=== PATIENT | male | born 1950 | race Caucasian/White ===

== ENCOUNTER 2017-04-02 23:22 | Inpatient (IN) | payer OTHER, MEDICARE ==
[~2017-04-02] VITALS: Ht 170.2 cm; Wt 95.0 kg
[~2017-04-02 23:22] MED LIST: CLIN1CAP6 PO; GLUCTAB PO; HYDR-3533 PO; LANTUSP SQ; MEDR4PAK3 PO
[2017-04-02] MEDS ORDERED: SODIUM CHLOR 0.9% 1000 ML INJ 1,000 ML IV ONE (23:24)
[2017-04-02 23:25] VITALS: BP 109/69; PULSE 97; RESP 16; TEMP 98.6; O2SAT 96
[2017-04-02 23:28] VITALS: O2SAT 93
[2017-04-02] MEDS ORDERED: SODIUM CHLORIDE 0.9% FLUSH 10 ML FLUSH IVF PRN (23:30)
[2017-04-02] MEDS ORDERED: TETANUS/DIPHTHERIA TOXOID ADULT 0.5 ML VIAL IM ONE (23:30)
--- NOTE | 2017-04-02 23:35 | PD ---
HPI Chief Complaint: Fall Time Seen by Provider: 23:28 Travel History International Travel<30 days: No Contact w/Intl Traveler<30days: No Traveled to known affect area: No History of Present Illness HPI Patient is a 66-year-old female who was brought to emergency room by EMS after he tripped and fell. As per EMS, patient was at a local store and was walking up the ramp, patient tripped and lost his balance and fell backwards hitting his head on the concrete floor. Reports that patient had positive loss of consciousness on scene. Reports that patient appears intoxicated. Patient with no complaints at this time, patient denies any alcohol ingestion, denies any drug ingestion. Patient reports that he currently is not on any anticoagulants. 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) Immune Disorder: No Implanted Vascular Access Dvce: No Musculoskeletal: Yes Neurologic: Yes Psychiatric: No Reproductive: No Respiratory: Yes (PLURISY) Immunizations Current: Yes Migraines: No Myocardial Infarction: Yes (PT DOES NOT KNOW IF HE HAD A CATH WHEN HE HAD THE PR) Pneumonia: Yes (MULTIPLE TIMES) Radiation Therapy: No Seizures: No Sleep Apnea: No Thyroid Disease: No Past Surgical History Abdominal Surgery: No AICD: No Arteriovenous Shunt: No Cardiac Surgery: No Ear Surgery: No Endocrine Surgery: No Eye Surgery: No Genitourinary Surgery: Yes (VASECTOMY/ CIRCUMCISION ) Insulin Pump: No Joint Replacement: No Oral Surgery: Yes (TONSILLECTOMY) Pacemaker: No Thoracic Surgery: No Tonsillectomy: Yes Other Surgery: Yes (VASECTOMY AND CIRCUMSISION) Social History Alcohol Use: Yes (occasionally) Tobacco Use: Yes Substance Use: No Allergies-Medications (Allergen,Severity, Reaction): Coded Allergies: Sulfa (Verified Allergy, Severe, UNKNOWN - CHILD, 04/02/17) Reported Meds & Prescriptions Reported Meds & Active Scripts Active Reported Glucophage XR (Metformin HCl) 500 Mg Genet 500 Mg PO BID With evening meal Review of Systems ROS Limitations: Intoxication General / Constitutional: No: Fever Eyes: No: Visual changes HENT: No: Headaches Cardiovascular: No: Chest Pain or Discomfort Respiratory: No: Shortness of Breath Gastrointestinal: No: Abdominal Pain Genitourinary: No: Dysuria Musculoskeletal: No: Pain Skin: No Rash Neurologic: No: Weakness Psychiatric: No: Depression Endocrine: No: Polydipsia Hematologic/Lymphatic: No: Easy Bruising Physical Exam Exam Limitations: Intoxication Narrative GENERAL: Patient appears intoxicated at this time SKIN: Focused skin assessment warm/dry. Patient with hematoma to left posterior scalp, patient with no obvious laceration, he does have skin abrasions on his scalp. HEAD: Atraumatic. Normocephalic. EYES: Pupils equal and round. No scleral icterus. No injection or drainage. ENT: No nasal bleeding or discharge. Mucous membranes pink and moist. NECK: Trachea midline. No JVD. Patient with C-spine precautions in place CARDIOVASCULAR: Regular rate and rhythm. No murmur appreciated. RESPIRATORY: No accessory muscle use. Clear to auscultation. Breath sounds equal bilaterally. GASTROINTESTINAL: Abdomen soft, non-tender, nondistended. Hepatic and splenic margins not palpable. MUSCULOSKELETAL: No obvious deformities. No clubbing. No cyanosis. No edema. Patient with no midline thoracic or lumbar tenderness, no step-offs NEUROLOGICAL: Awake and alert. PSYCHIATRIC: Patient appears intoxicated Data Data Last Documented VS Vital Signs Date Time Temp Pulse Resp B/P Pulse Ox O2 Delivery O2 Flow Rate FiO2 04/02/17 23:28 93 2 04/02/17 23:25 98.6 97 16 109/69 Orders Complete Blood Count With Diff (04/02/17 23:24) Comprehensive Metabolic Panel (04/02/17 23:24) Prothrombin Time / Inr (Pt) (04/02/17 23:24) Act Partial Throm Time (Ptt) (04/02/17 23:24) Ct Brain W/O Iv Contrast(Rout) (04/02/17 23:24) Ecg Monitoring (04/02/17 23:24) Iv Access Insert/Monitor (04/02/17 23:24) Oximetry (04/02/17 23:24) Sodium Chloride 0.9% Flush (Ns Flush) (04/02/17 23:30) Sodium Chlor 0.9% 1000 Ml Inj (Ns 1000 M (04/02/17 23:24) Ct Cerv Spine W/O Contrast (04/02/17 ) Tetanus/Diphtheria Tox Adult (Tetanus/Di (04/02/17 23:30) Drug Screen, Random Urine (04/02/17 23:24) Alcohol (Ethanol) (04/02/17 23:24) Salicylates (Aspirin) (04/02/17 23:24) Tylenol (Acetaminophen) (04/02/17 23:24) Chest, Single Ap (04/02/17 23:24) ^ Wound Care (04/02/17 23:24) Electrocardiogram (04/03/17 ) Platelet Pheresis (04/03/17 01:01) Consult Neurosurgery (04/03/17 ) Admit Order (Ed Use Only) (04/03/17 01:04) Labs Laboratory Tests Test 04/02/17 04/03/17 23:30 00:50 White Blood Count 4.6 TH/MM3 Red Blood Count 4.74 MIL/MM3 Hemoglobin 14.6 GM/DL Hematocrit 43.9 % Mean Corpuscular Volume 92.6 FL Mean Corpuscular Hemoglobin 30.8 PG Mean Corpuscular Hemoglobin 33.2 % Concent Red Cell Distribution Width 15.4 % Platelet Count 39 TH/MM3 Mean Platelet Volume 9.0 FL Neutrophils (%) (Auto) 59.6 % Lymphocytes (%) (Auto) 27.1 % Monocytes (%) (Auto) 9.3 % Eosinophils (%) (Auto) 3.3 % Basophils (%) (Auto) 0.7 % Neutrophils # (Auto) 2.7 TH/MM3 Lymphocytes # (Auto) 1.2 TH/MM3 Monocytes # (Auto) 0.4 TH/MM3 Eosinophils # (Auto) 0.2 TH/MM3 Basophils # (Auto) 0.0 TH/MM3 CBC Comment AUTO DIFF Prothrombin Time 12.3 SEC Prothromb Time International 1.1 RATIO Ratio Activated Partial 26.9 SEC Thromboplast Time Sodium Level 136 MEQ/L Potassium Level 3.6 MEQ/L Chloride Level 102 MEQ/L Carbon Dioxide Level 26.3 MEQ/L Anion Gap 8 MEQ/L Blood Urea Nitrogen 16 MG/DL Creatinine 0.76 MG/DL Estimat Glomerular Filtration 102 ML/MIN Rate Random Glucose 128 MG/DL Calcium Level 8.4 MG/DL Total Bilirubin 0.4 MG/DL Aspartate Amino Transf 16 U/L (AST/SGOT) Alanine Aminotransferase 15 U/L (ALT/SGPT) Alkaline Phosphatase 59 U/L Total Protein 8.0 GM/DL Albumin 3.7 GM/DL Salicylates Level LESS THAN 1.7 MG/DL Acetaminophen Level LESS THAN 2.0 MCG/ML Ethyl Alcohol Level 207 MG/DL Urine Opiates Screen NEG Urine Barbiturates Screen NEG Urine Amphetamines Screen NEG Urine Benzodiazepines Screen NEG Urine Cocaine Screen NEG Urine Cannabinoids Screen NEG MDM Medical Decision Making Medical Screen Exam Complete: Yes Emergency Medical Condition: Yes Interpretation(s) EKG at 0034: NSR at 84bpm, qt/qtc: 382/423, no acute st or t wave changes Vital Signs Date Time Temp Pulse Resp B/P Pulse Ox O2 Delivery O2 Flow Rate FiO2 04/02/17 23:25 98.6 97 16 109/69 96 Differential Diagnosis Alcohol intoxication, drug abuse, intracranial hemorrhage, cervical spine fracture, pneumothorax, electrolyte abnormality Narrative Course Patient is a 66-year-old male who presents to emergency room with EMS for evaluation of fall. As per EMS, patient was walking up a ramp and tripped and fell and landed on the back of his head. There was positive loss of consciousness on scene. Patient appeared intoxicated on scene. Patient arrives boarded and collared to the emergency room. Patient was removed from backboard, patient with no midline tenderness or step-offs, no abrasions or bruising to his back. Lungs are clear to auscultation, patient with no chest pain or shortness of breath and has good range of motion to all extremities. Plan to obtain CT of his head and neck, will obtain x-ray of his chest. Lab work including alcohol and urine drug screen ordered. Will give IV fluids and monitor patient. Laboratory Tests Test 04/02/17 23:30 White Blood Count 4.6 TH/MM3 (4.0-11.0) Red Blood Count 4.74 MIL/MM3 (4.50-5.90) Hemoglobin 14.6 GM/DL (13.0-17.0) Hematocrit 43.9 % (39.0-51.0) Mean Corpuscular Volume 92.6 FL (80.0-100.0) Mean Corpuscular Hemoglobin 30.8 PG (27.0-34.0) Mean Corpuscular Hemoglobin 33.2 % Concent (32.0-36.0) Red Cell Distribution Width 15.4 % (11.6-17.2) Platelet Count 39 TH/MM3 (150-450) Mean Platelet Volume 9.0 FL (7.0-11.0) Neutrophils (%) (Auto) 59.6 % (16.0-70.0) Lymphocytes (%) (Auto) 27.1 % (9.0-44.0) Monocytes (%) (Auto) 9.3 % (0.0-8.0) Eosinophils (%) (Auto) 3.3 % (0.0-4.0) Basophils (%) (Auto) 0.7 % (0.0-2.0) Neutrophils # (Auto) 2.7 TH/MM3 (1.8-7.7) Lymphocytes # (Auto) 1.2 TH/MM3 (1.0-4.8) Monocytes # (Auto) 0.4 TH/MM3 (0-0.9) Eosinophils # (Auto) 0.2 TH/MM3 (0-0.4) Basophils # (Auto) 0.0 TH/MM3 (0-0.2) CBC Comment AUTO DIFF Prothrombin Time 12.3 SEC (9.8-11.6) Prothromb Time International 1.1 RATIO Ratio Activated Partial 26.9 SEC Thromboplast Time (24.3-30.1) Sodium Level 136 MEQ/L (136-145) Potassium Level 3.6 MEQ/L (3.5-5.1) Chloride Level 102 MEQ/L (98-107) Carbon Dioxide Level 26.3 MEQ/L (21.0-32.0) Anion Gap 8 MEQ/L (5-15) Blood Urea Nitrogen 16 MG/DL (7-18) Creatinine 0.76 MG/DL (0.60-1.30) Estimat Glomerular Filtration 102 ML/MIN Rate (>89) Random Glucose 128 MG/DL (74-106) Calcium Level 8.4 MG/DL (8.5-10.1) Total Bilirubin 0.4 MG/DL (0.2-1.0) Aspartate Amino Transf 16 U/L (15-37) (AST/SGOT) Alanine Aminotransferase 15 U/L (12-78) (ALT/SGPT) Alkaline Phosphatase 59 U/L (45-117) Total Protein 8.0 GM/DL (6.4-8.2) Albumin 3.7 GM/DL (3.4-5.0) Salicylates Level LESS THAN 1.7 MG/DL (2.8-20.0) Acetaminophen Level LESS THAN 2.0 MCG/ML (10.0-30.0) Ethyl Alcohol Level 207 MG/DL (0-5) Alcohol level is 207, ct of head with SAH b/l temportal and right mid parietal region. Plan to admit to ICU and call made to neurosurgery. Case reviewed with Dr. Sim who accepts pt to service Case reviewed with Dr. Duque who will see patient in consult Critical Care Narrative Aggregate critical care time was 30 minutes. Time to perform other separately billable procedures was not included in the critical care time. My time did not include minutes spent treating any other patients simultaneously or on activities that did not directly contribute to the patient's treatment. The services I provided to this patient were to treat and/or prevent clinically significant deterioration that could result in: , decompensation, deterioration I provided critical care services requiring my management, as noted below: Chart data review, documentation time, medication orders and management, vital sign assessments/reviewing monitor data, ordering and reviewing lab tests, ordering and interpreting/reviewing x-rays and diagnostic studies, care of the patient and discussion of the patient with the admitting physicians. Physician Communication Physician Communication case reviewed with Dr. Sim who accepts pt to service Diagnosis Primary Impression: Subarachnoid hemorrhage Additional Impression: Alcohol intoxication Qualified Code: F10.929 - Alcohol intoxication, with unspecified complication Admitting Information Admitting Physician Requests: Rimma Hill DO Apr 02, 2017 23:35
[2017-04-02] MEDS ORDERED: GLUCTAB PO (23:44)
[2017-04-02 23:56] LABS: AUTOMATED NEUTROPHIL # 2.7 TH/MM3 (1.8-7.7); BASOPHIL % 0.7 % (0.0-2.0); EOSINOPHIL # 0.2 TH/MM3 (0-0.4); EOSINOPHIL % 3.3 % (0.0-4.0); HEMATOCRIT 43.9 % (39.0-51.0); LYMPH % 27.1 % (9.0-44.0); LYMPHOCYTE # 1.2 TH/MM3 (1.0-4.8); MEAN CELL VOLUME 92.6 FL (80.0-100.0); MEAN CORPUSCULAR HEMOGLOBIN 30.8 PG (27.0-34.0); MEAN CORPUSCULAR HGB CONC 33.2 % (32.0-36.0); MONO % 9.3 % (0.0-8.0); NEUT % 59.6 % (16.0-70.0); PLATELET COUNT 39 TH/MM3 (150-450); RED BLOOD COUNT 4.74 MIL/MM3 (4.50-5.90); RED CELL DISTRIBUTION WIDTH 15.4 % (11.6-17.2); WHITE BLOOD COUNT 4.6 TH/MM3 (4.0-11.0)
[2017-04-02 23:58] LABS: HEMO FLAGS AUTO DIFF
[2017-04-03] VITALS (16 sets, daily range): BP systolic 95–169; BP diastolic 47–79; PULSE 68–90; RESP 16–30; TEMP 97.6–98.6; O2SAT 91–98
--- NOTE | 2017-04-03 00:01 | RADRPT ---
EXAM DATE/TIME: 04/02/2017 23:55 [facility] COMPARISON: CHEST SINGLE AP, December 23, 2014, 11:13. INDICATIONS : Syncopal episode today. Trauma to chest post fall. MEDICAL HISTORY : None. SURGICAL HISTORY : None. ENCOUNTER: Initial ACUITY: 1 day PAIN SCORE: Non-responsive. LOCATION: Bilateral chest FINDINGS: Single frontal view of the chest demonstrates mild diffuse interstitial markings at the periphery of the right lung. No focal areas of consolidation. The heart is normal in size. Both hemidiaphragms are well delineated. Healed fractures of the posterior left 4th and 5th ribs. CONCLUSION: No acute findings. No evidence of pneumothorax. Anuel Brennan MD on April 02, 2017 at 23:58 Board Certified Radiologist. This report was verified electronically.
[2017-04-03 00:08] LABS: APTT (PATIENT) 26.9 SEC (24.3-30.1); INTERNATIONAL NORMALIZED RATIO 1.1 RATIO; PROTHROMBIN TIME - PATIENT 12.3 SEC (9.8-11.6)
[2017-04-03 00:17] LABS: ANION GAP 8 MEQ/L (5-15); AST (GOT) 16 U/L (15-37); BICARBONATE 26.3 MEQ/L (21.0-32.0); BLOOD UREA NITROGEN 16 MG/DL (7-18); CHLORIDE 102 MEQ/L (98-107); GLOMERULAR FILTRATION RATE 102 ML/MIN (>89); POTASSIUM 3.6 MEQ/L (3.5-5.1); SODIUM (NA) 136 MEQ/L (136-145)
[2017-04-03 00:19] LABS: ALT (GPT) 15 U/L (12-78)
[2017-04-03 00:21] LABS: ALKALINE PHOSPHATASE 59 U/L (45-117); TOTAL BILIRUBIN ADULT 0.4 MG/DL (0.2-1.0)
[2017-04-03 00:23] LABS: ACETAMINOPHEN LESS THAN 2.0 MCG/ML (10.0-30.0)
--- NOTE | 2017-04-03 00:54 | RADRPT ---
EXAM DATE/TIME: 04/03/2017 00:15 [facility] COMPARISON: CT BRAIN W/O CONTRAST, June 26, 2011, 20:24. INDICATIONS : Fell backwards hitting head. RADIATION DOSE: 56.45 CTDIvol (mGy) MEDICAL HISTORY : Cardiovascular disease. Diabetes mellitus type 2. Hepatitis C. SURGICAL HISTORY : None. ENCOUNTER: Initial ACUITY: 1 day PAIN SCALE: 8/10 LOCATION: cranial TECHNIQUE: Multiple contiguous axial images were obtained of the head. Using automated exposure control and adj ustment of the mA and/or kV according to patient size, radiation dose was kept as low as reasonably a chievable to obtain optimal diagnostic quality images. DICOM format image data is available electro nically for review and comparison. FINDINGS: CEREBRUM: Abnormal. There is bilateral subarachnoid hemorrhage in sulci of the low convexity temporal lobes an d in right mid convexity parietal lobe no evidence of midline shift. No intraventricular blood. POSTERIOR FOSSA: The cerebellum and brainstem are intact. The 4th ventricle is midline. The cerebellopontine angle i s unremarkable. EXTRACRANIAL: The visualized portion of the orbits is intact. SKULL: Left posterior parietal mid convexity scalp hematoma measuring up to 9 mm in thickness. The calvaria is intact. No evidence of skull fracture. CONCLUSION: Evidence of closed head injury with subarachnoid hemorrhage is bilateral temporal and right mid parie john region. Left posterior parietal scalp hematoma without evidence of skull fracture. Anuel Brennan MD on April 03, 2017 at 0:48 Board Certified Radiologist. This report was verified electronically.
--- NOTE | 2017-04-03 00:58 | RADRPT ---
EXAM DATE/TIME: 04/03/2017 00:17 [facility] COMPARISON: CT CERVICAL SPINE W/O CONTRAST W 3D RECON, June 26, 2011, 20:24. CT BRAIN W/O CONTRAST, March, 0:15. INDICATIONS : Fell backwards hitting head. RADIATION DOSE: 37.45 CTDIvol (mGy) MEDICAL HISTORY : Cardiovascular disease. Diabetes mellitus type 2. Hepatitis C. SURGICAL HISTORY : None. ENCOUNTER: Initial ACUITY: 1 day PAIN SCALE: 4/10 LOCATION: neck TECHNIQUE: Volumetric scanning of the cervical spine was performed. Multiplanar reconstructions in the sagittal, coronal and oblique axial planes were performed. Using automated exposure control and adjustment o f the mA and/or kV according to patient size, radiation dose was kept as low as reasonably achievable to obtain optimal diagnostic quality images. DICOM format image data is available electronically f or review and comparison. FINDINGS: There is normal alignment of vertebral bodies of the cervical spine preservation of vertebral body he ight. Mild loss of the posterior disc space at C5-6 with mild osteophyte formation. The lateral mas ses are intact without evidence of locked or perched facets. The spinous processes are grossly intac t. Small areas of ossification in the soft tissue superficial to the C4 level. C2-C3: No fracture seen. The bony neural foramina are patent bilaterally. C3-C4: No fracture seen. The bony neural foramina are patent bilaterally. C4-C5: No fracture seen. The bony neural foramina are patent bilaterally. C5-C6: No fracture seen. The bony neural foramina are patent bilaterally. C6-C7: No fracture seen. The bony neural foramina are patent bilaterally. C7-T1: No fracture seen. The bony neural foramina are patent bilaterally. CONCLUSION: Discogenic degenerative changes at C5-6 without neural foraminal narrowing. No evidence of acute fra cture or spondylolisthesis. Anuel Brennan MD on April 03, 2017 at 0:53 Board Certified Radiologist. This report was verified electronically.
[2017-04-03 01:03] LABS: AMPHETAMINE, URINE NEG (NEG); BARBITURATES, URINE NEG (NEG); COCAINE, URINE NEG (NEG)
[2017-04-03] MEDS ORDERED: BISACODYL 10 MG SUPP RECTAL PRN (01:15)
[2017-04-03] MEDS ORDERED: CHLORHEXIDINE GLUCONATE 2 % 1 PACK (2 CLOTHS) TOP PRN (01:15)
[2017-04-03] MEDS ORDERED: ACETAMINOPHEN 325 MG TAB PO PRN (01:15)
[2017-04-03] MEDS ORDERED: LORazepam 2 MG/ML VIAL IV PRN (01:15)
[2017-04-03] MEDS ORDERED: RESP: ALBUTEROL 2.5 MG/IPRATROPIUM 0.5 MG NEB (PRN) INH (01:15)
[2017-04-03] MEDS ORDERED: MISCELLANEOUS NURSING INFORMATION XX SCH (01:15)
[2017-04-03] MEDS ORDERED: MAGNESIUM HYDROXIDE SUSP 30 ML CUP PO PRN (01:15)
[2017-04-03] MEDS ORDERED: ONDANSETRON HCL 4 MG/2 ML VIAL IV PRN (01:15)
[2017-04-03] MEDS ORDERED: SODIUM CHLORIDE 0.9% FLUSH 10 ML FLUSH IV FLUSH PRN (01:15)
[2017-04-03] MEDS ORDERED: LACTULOSE SYRUP 20 GM/30 ML CUP PO PRN (01:15)
[2017-04-03] MEDS ORDERED: SENNOSIDES 8.6 MG TAB PO PRN (01:15)
[2017-04-03 01:39] LABS: PLATELET ESTIMATE SMEAR LOW (NORMAL); PLATELET MORPHOLOGY NORMAL (NORMAL); SCAN/DIFF AUTO DIFF CONFIRMED
--- NOTE | 2017-04-03 02:11 | HHI.HP ---
[facility] Service Critical Care Medicine Primary Care Physician No Primary Care Physician Admission Diagnosis subarachnoid hemorrhage Diagnosis: Travel History International Travel<30 Days: No Contact w/Intl Traveler <30 Da: No Traveled to Known Affected Are: No History of Present Illness 66-year-old male who was brought by EMS after he tripped and fell. As per EMS, patient was at a local store and was walking up the ramp, when he tripped and lost his balance and fell backwards hitting his head on the concrete floor. Reports that patient had positive loss of consciousness on scene. Reports that patient appears intoxicated. Patient with no complaints at this time, patient denies any alcohol ingestion, denies any drug ingestion. Review of Systems Constitutional: DENIES: Diaphoretic episodes, Fatigue, Fever, Weight gain, Weight loss, Chills, Dizziness, Change in appetite, Night Sweats Endocrine: DENIES: Heat/cold intolerance, Polydipsia, Polyuria, Polyphagia Eyes: DENIES: Blurred vision, Diplopia, Eye inflammation, Eye pain, Vision loss , Photosensitivity, Double Vision Ears, nose, mouth, throat: DENIES: Tinnitus, Hearing loss, Vertigo, Nasal discharge, Oral lesions, Throat pain, Hoarseness, Ear Pain, Running Nose, Epistaxis, Sinus Pain, Toothache, Odynophagia Respiratory: DENIES: Apneas, Cough, Snoring, Wheezing, Hemoptysis, Sputum production, Shortness of breath Cardiovascular: DENIES: Chest pain, Palpitations, Syncope, Dyspnea on Exertion , PND, Lower Extremity Edema, Orthopnea, Claudication Gastrointestinal: DENIES: Abdominal pain, Black stools, Bloody stools, Constipation, Diarrhea, Nausea, Vomiting, Difficulty Swallowing, Anorexia Genitourinary: DENIES: Sexual dysfunction, Urinary frequency, Urinary incontinence, Urgency, Hematuria, Dysuria, Nocturia, Penile Discharge, Testicular Pain, Testicular Swelling Musculoskeletal: DENIES: Joint pain, Muscle aches, Stiffness, Joint Swelling, Back pain, Neck pain Integumentary: DENIES: Abnormal pigmentation, Nail changes, Pruritus, Rash Hematologic/lymphatic: DENIES: Bruising, Lymphadenopathy Immunologic/allergic: DENIES: Eczema, Urticaria Neurologic: DENIES: Abnormal gait, Headache, Localized weakness, Paresthesias, Seizures, Speech Problems, Tremor, Poor Balance Psychiatric: DENIES: Anxiety, Confusion, Mood changes, Depression, Hallucinations, Agitation, Suicidal Ideation, Homicidal Ideation, Delusions Past Family Social History Allergies: Coded Allergies: Sulfa (Verified Allergy, Severe, UNKNOWN - CHILD, 04/02/17) Past Medical History Diabetes mellitus Questionable alcohol abuse Past Surgical History None Reported Medications Reported Meds & Active Scripts Active Reported Glucophage XR (Metformin HCl) 500 Mg Genet 500 Mg PO BID With evening meal Active Ordered Medications Current Medications Medications (Trade) Dose Ordered Sig/Sameera Route PRN Reason Start Time Stop Time Status Last Admin Dose Admin Sodium Chloride (NS Flush) 2 ml UNSCH PRN IV FLUSH FLUSH AFTER USING IV ACCESS 04/03/17 01:15 Sodium Chloride (NS Flush) 2 ml BID .XX 04/03/17 09:00 Acetaminophen (Tylenol) 650 mg Q6H PRN PO PAIN 1-5 AND/OR FEVER >101F 04/03/17 01:15 Morphine Sulfate (Morphine Inj) 2 mg Q2H PRN IV PAIN SCALE 6 TO 10 04/03/17 01:15 Lorazepam (Ativan Inj) 2 mg Q4H PRN IV Agitation/Sedation 04/03/17 01:15 Ondansetron HCl (Zofran Inj) 4 mg Q6H PRN IV NAUSEA OR VOMITING 04/03/17 01:15 Miscellaneous Information 1 [id number] XX 04/03/17 01:15 Chlorhexidine Gluconate (Chlorhexidine 2% Cloth) 3 pack Taper DAILY@04 TOP 04/03/17 04:00 03/30/18 03:59 Chlorhexidine Gluconate (Chlorhexidine 2% Cloth) 3 pack UNSCH PRN TOP HYGIENIC CARE 04/03/17 01:15 Senna/Docusate Sodium (Tess-Colace) 1 tab BID PO 04/03/17 09:00 Magnesium Hydroxide (Milk Of Magnesia Liq) 30 ml Q12H PRN PO MILD - MODERATE CONSTIPATION 04/03/17 01:15 Sennosides (Senokot) 17.2 mg Q12H PRN PO MODERATE - SEVERE CONSTIPATION 04/03/17 01:15 Bisacodyl (Dulcolax Supp) 10 mg DAILY PRN RECTAL SEVERE CONSITIPATION 04/03/17 01:15 Lactulose 30 ml 30 ml DAILY PRN PO SEVERE CONSITIPATION 04/03/17 01:15 Multivitamins/ Thiamine HCl/ Folic Acid/ Dextrose/Sodium Chloride (Mvi-12 Inj/ Thiamine Inj/ Folvite Inj/ D5W-NS 500 ml Inj) 511.2 ml @ 125 mls/hr ONCE ONCE IV 04/03/17 03:15 04/03/17 07:20 Family History Noncontributory Social History Smokes 1 pack per day denies illicit drug or alcohol abuse Physical Exam Vital Signs Vital Signs Date Time Temp Pulse Resp B/P Pulse Ox O2 Delivery O2 Flow Rate FiO2 04/02/17 23:28 93 2 04/02/17 23:25 98.6 97 16 109/69 96 Physical Exam GENERAL: Well-nourished, well-developed patient. SKIN: Warm and dry. HEAD: Normocephalic. EYES: No scleral icterus. No injection or drainage. NECK: Supple, trachea midline. No JVD or lymphadenopathy. CARDIOVASCULAR: Regular rate and rhythm without murmurs, gallops, or rubs. RESPIRATORY: Breath sounds equal bilaterally. No accessory muscle use. GASTROINTESTINAL: Abdomen soft, non-tender, nondistended. MUSCULOSKELETAL: No cyanosis, or edema. BACK: Nontender without obvious deformity. No CVA tenderness. EXTREMITIES: No clubbing cyanosis or edema Laboratory Laboratory Tests Test 04/02/17 04/03/17 23:30 00:50 White Blood Count 4.6 Red Blood Count 4.74 Hemoglobin 14.6 Hematocrit 43.9 Mean Corpuscular Volume 92.6 Mean Corpuscular Hemoglobin 30.8 Mean Corpuscular Hemoglobin 33.2 Concent Red Cell Distribution Width 15.4 Platelet Count 39 Mean Platelet Volume 9.0 Neutrophils (%) (Auto) 59.6 Lymphocytes (%) (Auto) 27.1 Monocytes (%) (Auto) 9.3 Eosinophils (%) (Auto) 3.3 Basophils (%) (Auto) 0.7 Neutrophils # (Auto) 2.7 Lymphocytes # (Auto) 1.2 Monocytes # (Auto) 0.4 Eosinophils # (Auto) 0.2 Basophils # (Auto) 0.0 CBC Comment AUTO DIFF Differential Comment AUTO DIFF CONFIRMED Platelet Estimate LOW Platelet Morphology Comment NORMAL Prothrombin Time 12.3 Prothromb Time International 1.1 Ratio Activated Partial 26.9 Thromboplast Time Sodium Level 136 Potassium Level 3.6 Chloride Level 102 Carbon Dioxide Level 26.3 Anion Gap 8 Blood Urea Nitrogen 16 Creatinine 0.76 Estimat Glomerular Filtration 102 Rate Random Glucose 128 Calcium Level 8.4 Total Bilirubin 0.4 Aspartate Amino Transf 16 (AST/SGOT) Alanine Aminotransferase 15 (ALT/SGPT) Alkaline Phosphatase 59 Total Protein 8.0 Albumin 3.7 Salicylates Level LESS THAN 1.7 Acetaminophen Level LESS THAN 2.0 Ethyl Alcohol Level 207 Urine Opiates Screen NEG Urine Barbiturates Screen NEG Urine Amphetamines Screen NEG Urine Benzodiazepines Screen NEG Urine Cocaine Screen NEG Urine Cannabinoids Screen NEG Result Diagram: 04/02/17 2330 04/02/172329 Imaging Last [address] 04/02/172323 Signed Impressions: Service Date/Time: March 00:15 - CONCLUSION: Evidence of closed head injury with subarachnoid hemorrhage is bilateral temporal and right mid parietal region. Left posterior parietal scalp hematoma without evidence of skull fracture. Anuel Brennan MD Chest X-Ray 04/02/172323 Signed Impressions: Service Date/Time: Sunday, April 02, 2017 23:55 - CONCLUSION: No acute findings. No evidence of pneumothorax. Anuel Brennan MD Assessment and Plan Assessment and Plan Subarachnoid hemorrhage - Traumatic - Admit to ICU - Neuro checks per unit protocol - Repeat CT head in 24 hours Thrombocytopenia - Most likely due to chronic alcohol use - Transfuse platelets to keep platelet count close to 90 due to ICH Diabetes mellitus - Hold metformin while in the ICU - Insulin sliding scale Alcohol intoxication - Monitor for withdrawal - Thiamine folate multivitamin - IV hydration - Ativan when necessary DVT GI prophylaxis - Teds SCDs - No pharmacological DVT prophylaxis due to acute ICH - Pepcid Critical Care: The total critical care time was 35 minutes. Time to perform other separately billable procedures was not included in the critical care time. Keyon Sim MD Apr 03, 2017 02:11
[2017-04-03] MEDS ORDERED: MULTIVITAMIN INJ 10 ML, THIAMINE INJ 100 MG, FOLIC ACID INJ 1 MG in DEXT 5%-NACL 0.9% 5... IV ONE (03:15)
[2017-04-03] MEDS: CHLORHEXIDINE GLUCONATE 2 % 1 PACK (2 CLOTHS) TOP SCH (04:00)
--- NOTE | 2017-04-03 07:50 | EKG ---
Date Performed: 04/03/2017 Time Performed: 00:34:14 PTAGE: 66 years EKG: Sinus rhythm BORDERLINE LEFT AXIS DEVIATION BORDERLINE ECG PREVIOUS TRACING : 05/19/2010 12.17 DOCTOR: Edwin Euceda Interpretating Date/Time 04/03/2017 07:48:07
[2017-04-03] MEDS: DOCUSATE SODIUM 50 MG/SENNA 8.6 MG TAB PO SCH ×2 (11:58→22:45)
[2017-04-03] MEDS: SODIUM CHLORIDE 0.9% FLUSH 10 ML FLUSH SCH ×2 (11:58→22:45)
[2017-04-03] MEDS ORDERED: GLUCAGON 1 MG/ML VIAL OTHER PRN (12:30)
[2017-04-03] MEDS ORDERED: DEXTROSE 50% IN WATER 50 ML VIAL(D50) IV PRN (12:30)
[2017-04-03] MEDS: metFORMIN HCL 500 MG TAB PO SCH ×2 (13:11→17:18)
--- NOTE | 2017-04-03 13:55 | PD.CONS ---
HPI Service NSR Consult Requested By Dr Wright Reason for Consult TBI Primary Care Physician No Primary Care Physician History of Present Illness This is a 66-year-old male who was brought by EMS after he tripped and fell down. Apparently he was at a local store and was walking up the ramp, when he tripped and lost his balance and fell backwards hitting his head on the concrete floor. Reports that patient had positive loss of consciousness on scene. The noted. No tongue biting. No incontinence of stool or urine. His. He denies any sensory loss. Reports that patient appears intoxicated. He denies any alcohol ingestion, denies any drug ingestion. CT of the brain showed Evidence of closed head injury with subarachnoid hemorrhage is bilateral temporal and right mid parietal region. Neurosurgical consultation was requested Review of Systems Constitutional: DENIES: Diaphoretic episodes, Fatigue, Fever, Weight gain, Weight loss, Chills, Dizziness, Change in appetite, Night Sweats Endocrine: DENIES: Heat/cold intolerance, Polydipsia, Polyuria, Polyphagia Eyes: DENIES: Blurred vision, Diplopia, Eye inflammation, Eye pain, Vision loss , Photosensitivity, Double Vision Ears, nose, mouth, throat: DENIES: Tinnitus, Hearing loss, Vertigo, Nasal discharge, Oral lesions, Throat pain, Hoarseness, Ear Pain, Running Nose, Epistaxis, Sinus Pain, Toothache, Odynophagia Respiratory: DENIES: Apneas, Cough, Snoring, Wheezing, Hemoptysis, Sputum production, Shortness of breath Cardiovascular: DENIES: Chest pain, Palpitations, Syncope, Dyspnea on Exertion , PND, Lower Extremity Edema, Orthopnea, Claudication Gastrointestinal: DENIES: Abdominal pain, Black stools, Bloody stools, Constipation, Diarrhea, Nausea, Vomiting, Difficulty Swallowing, Anorexia Genitourinary: DENIES: Sexual dysfunction, Urinary frequency, Urinary incontinence, Urgency, Hematuria, Dysuria, Nocturia, Penile Discharge, Testicular Pain, Testicular Swelling Musculoskeletal: DENIES: Joint pain, Muscle aches, Stiffness, Joint Swelling, Back pain, Neck pain Integumentary: DENIES: Abnormal pigmentation, Nail changes, Pruritus, Rash Hematologic/lymphatic: DENIES: Bruising, Lymphadenopathy Immunologic/allergic: DENIES: Eczema, Urticaria Neurologic: DENIES: Abnormal gait, Headache, Localized weakness, Paresthesias, Seizures, Speech Problems, Tremor, Poor Balance Psychiatric: DENIES: Anxiety, Confusion, Mood changes, Depression, Hallucinations, Agitation, Suicidal Ideation, Homicidal Ideation, Delusions Past Family Social History Allergies: Coded Allergies: Sulfa (Verified Allergy, Severe, UNKNOWN - CHILD, 04/02/17) Past Medical History Diabetes mellitus alcohol abuse Past Surgical History None Reported Medications Glucophage XR (Metformin HCl) 500 Mg Genet 500 Mg PO BID With evening meal Active Ordered Medications Current Medications Sodium Chloride 2 ml 2 ml UNSCH PRN IVF FLUSH AFTER USING IV ACCESS Last administered on 04/02/17 23:54; Start 04/02/17 at 23:30; Stop 04/03/17 at 01:17 ; Status DC Sodium Chloride (NS 1000 ml Inj) 1,000 ml @ 1,000 mls/hr Q1H ONCE IV Last administered on 04/02/17 23:54; Start 04/02/17 at 23:24; Stop 04/03/17 at 00:23 ; Status DC Tetanus/ Diphtheria Toxoids (Tetanus/ Diphtheria Tox Adult) 0.5 ml ONCE ONCE IM Last administered on 04/02/17 23:55; Start 04/02/17 at 23:30; Stop 04/02/17 at 23:31; Status DC Sodium Chloride (NS Flush) 2 ml UNSCH PRN IV FLUSH FLUSH AFTER USING IV ACCESS ; Start 04/03/17 at 01:15 Sodium Chloride (NS Flush) 2 ml BID .XX Last administered on 04/03/17 11:58; Start 04/03/17 at 09:00 Acetaminophen (Tylenol) 650 mg Q6H PRN PO PAIN 1-5 AND/OR FEVER >101F; Start at 01:15 Morphine Sulfate (Morphine Inj) 2 mg Q2H PRN IV PAIN SCALE 6 TO 10; Start 04/03 at 01:15 Lorazepam (Ativan Inj) 2 mg Q4H PRN IV Agitation/Sedation; Start 04/03/17 at 01 :15 Ondansetron HCl (Zofran Inj) 4 mg Q6H PRN IV NAUSEA OR VOMITING; Start at 01:15 Albuterol/ Ipratropium (Duoneb Neb) 1 ampule Q2HR NEB PRN INH WHEEZING; Start 04/03/17 at 01:15 Miscellaneous Information 1 Q361D XX ; Start 04/03/17 at 01:15 Chlorhexidine Gluconate (Chlorhexidine 2% Cloth) 3 pack Taper DAILY@04 TOP ; Start 04/03/17 at 04:00; Stop 03/30/18 at 03:59 Chlorhexidine Gluconate (Chlorhexidine 2% Cloth) 3 pack UNSCH PRN TOP HYGIENIC CARE; Start 04/03/17 at 01:15 Senna/Docusate Sodium (Tess-Colace) 1 tab BID PO Last administered on 11:58; Start 04/03/17 at 09:00 Magnesium Hydroxide (Milk Of Magnrafael Liq) 30 ml Q12H PRN PO MILD - MODERATE CONSTIPATION; Start 04/03/17 at 01:15 Sennosides (Senokot) 17.2 mg Q12H PRN PO MODERATE - SEVERE CONSTIPATION; Start 04/03/17 at 01:15 Bisacodyl (Dulcolax Supp) 10 mg DAILY PRN RECTAL SEVERE CONSITIPATION; Start at 01:15 Lactulose 30 ml 30 ml DAILY PRN PO SEVERE CONSITIPATION; Start 04/03/17 at 01: 15 Multivitamins/ Thiamine HCl/ Folic Acid/ Dextrose/Sodium Chloride (Mvi-12 Inj/ Thiamine Inj/ Folvite Inj/ D5W-NS 500 ml Inj) 511.2 ml @ 125 mls/hr ONCE ONCE IV Last administered on 04/03/17 02:14; Start 04/03/17 at 03:15; Stop at 07:20; Status DC Metformin HCl (Glucophage) 500 mg BIDPC PO Last administered on 04/03/17 13:11 ; Start 04/03/17 at 12:30 Dextrose (D50w (Vial) Inj) 50 ml UNSCH PRN IV HYPOGLYCEMIA-SEE COMMENTS; Start 04/03/17 at 12:30 Glucagon (Glucagon Inj) 1 mg UNSCH PRN OTHER HYPOGLYCEMIA-SEE COMMENTS; Start 04/03/17 at 12:30 Insulin Aspart (NovoLOG SUPPLEMENTAL SCALE) 1 ACHS SLIDING SCALE SQ ; Start at 16:00; Stop 04/03/17 at 16:00; Status DC Insulin Aspart (NovoLOG SUPPLEMENTAL SCALE) 1 ACHS SLIDING SCALE SQ ; Start at 16:00 Family History Noncontributory Social History Smokes 1 pack per day denies illicit drug or alcohol abuse Physical Exam Vital Signs Vital Signs Date Time Temp Pulse Resp B/P Pulse Ox O2 Delivery O2 Flow Rate FiO2 04/03/17 08:00 93 Nasal Cannula 2.00 04/03/17 06:00 98.0 89 22 169/74 95 04/03/17 06:00 86 04/03/17 05:04 68 16 95/47 97 Nasal Cannula 2 04/03/17 03:45 80 18 109/79 94 Room Air 2 04/03/17 01:35 80 18 113/69 98 Nasal Cannula 2 04/02/17 23:28 93 2 04/02/17 23:25 98.6 97 16 109/69 96 Physical Exam The patient is alert, awake and oriented to time, place and person. Speech is fluent. Higher cognitive functions are normal. Cranial nerve examination demonstrates the pupils to be equal, round, and reactive to light. Extra-ocular movements are intact. Facial motor and sensory function are normal and symmetrical. Gross hearing is intact, bilaterally. The uvula is midline and elevates symmetrically with the soft palate. Sternocleidomastoid and trapezius muscles have normal and symmetrical strength. Other cranial nerves are intact. Neck is soft and supple. Cervical spine has a full range of motion in anterior flexion, extension, lateral bending, and rotation without pain. There is no tenderness to palpation to the spinous processes or paraspinal muscles. Muscle testing reveals normal bulk and tone overall without rigidity, spasticity , fasciculations, or atrophy. Muscle strength is 5/5 in all muscle groups of both upper extremities including deltoid, biceps, triceps, brachioradialis, wrist extension and collection manager. In the lower extremities, strength is 5/5 in both iliopsoas, quadriceps, hamstrings, plantar flexion, dorsiflexion, and extensor hallicus longus. Sensory examination is intact to light touch and sharp/dull discrimination in both the upper and lower extremities, symmetrically. Deep tendon reflexes are 2+ and symmetrical in the biceps, triceps, and brachioradialis, bilaterally, in the upper extremities. In the lower extremities , the patellar and Achilles are 2+, bilaterally. There is a bilateral plantar flexion response. Hoffmanns sign is negative. There is no clonus or other abnormal reflexes noted. Cerebellar examination is intact to [id number] test, rapid rhythmic alternating motion. There is no dysmetria, dysdiadochokinesia, truncal ataxia, or tremor. Laboratory Laboratory Tests Test 04/02/17 04/03/17 04/03/17 23:30 00:50 01:34 White Blood Count 4.6 Red Blood Count 4.74 Hemoglobin 14.6 Hematocrit 43.9 Mean Corpuscular Volume 92.6 Mean Corpuscular Hemoglobin 30.8 Mean Corpuscular Hemoglobin 33.2 Concent Red Cell Distribution Width 15.4 Platelet Count 39 Mean Platelet Volume 9.0 Neutrophils (%) (Auto) 59.6 Lymphocytes (%) (Auto) 27.1 Monocytes (%) (Auto) 9.3 Eosinophils (%) (Auto) 3.3 Basophils (%) (Auto) 0.7 Neutrophils # (Auto) 2.7 Lymphocytes # (Auto) 1.2 Monocytes # (Auto) 0.4 Eosinophils # (Auto) 0.2 Basophils # (Auto) 0.0 CBC Comment AUTO DIFF Differential Comment AUTO DIFF CONFIRMED Platelet Estimate LOW Platelet Morphology Comment NORMAL Prothrombin Time 12.3 Prothromb Time International 1.1 Ratio Activated Partial 26.9 Thromboplast Time Sodium Level 136 Potassium Level 3.6 Chloride Level 102 Carbon Dioxide Level 26.3 Anion Gap 8 Blood Urea Nitrogen 16 Creatinine 0.76 Estimat Glomerular Filtration 102 Rate Random Glucose 128 Calcium Level 8.4 Total Bilirubin 0.4 Aspartate Amino Transf 16 (AST/SGOT) Alanine Aminotransferase 15 (ALT/SGPT) Alkaline Phosphatase 59 Total Protein 8.0 Albumin 3.7 Salicylates Level LESS THAN 1.7 Acetaminophen Level LESS THAN 2.0 Ethyl Alcohol Level 207 Urine Opiates Screen NEG Urine Barbiturates Screen NEG Urine Amphetamines Screen NEG Urine Benzodiazepines Screen NEG Urine Cocaine Screen NEG Urine Cannabinoids Screen NEG Ammonia 31 Blood Type AB POSITIVE Antibody Screen NEGATIVE Antigen Identification A1 LECTIN - NEGATIVE Blood Bank Comment Result Diagram: 04/02/17 23304/02/17 233 Imaging Last Impressions Head CT 04/02/172323 Signed Impressions: Service Date/Time: March 00:15 - CONCLUSION: Evidence of closed head injury with subarachnoid hemorrhage is bilateral temporal and right mid parietal region. Left posterior parietal scalp hematoma without evidence of skull fracture. Anuel Brennan MD Chest X-Ray 04/02/17 2324 Signed Impressions: Service Date/Time: Sunday, April 02, 2017 23:55 - CONCLUSION: No acute findings. No evidence of pneumothorax. Anuel Brennan MD Cervical Spine CT 04/02/17 0000 Signed Impressions: Service Date/Time: March 00:17 - CONCLUSION: Discogenic degenerative changes at C5-6 without neural foraminal narrowing. No evidence of acute fracture or spondylolisthesis. Anuel Brennan MD Assessment and Plan Assessment and Plan Fall with traumatic subarachnoid hemorrhage Attending Statement neuro checks in a serial fashion. A follow-up CT of the head will be obtained in 24 hours. Thrombocytopenia - Most likely due to chronic alcohol use - Transfuse platelets to keep platelet count close to 90 due to ICH Pulmonary. aggressive pulmonary toilette, nasotracheal suction, and breathing treatments with nebulizers. PT and OT evaluation Nutrition. NPO Renal. monitor closely urine output, BUN and creatinine Diabetes mellitus - Hold metformin while in the ICU - . Monitor serial Acu checks and SSI as needed Alcohol intoxication - Monitor for withdrawal - Thiamine folate multivitamin - IV hydration - Ativan when necessary ID monitor for signs of infection Protonix for stress ulcer prophylaxis Ron hose and SCD's for DVT prophylaxis Rasheed Duque MD Apr 03, 2017 13:55
[2017-04-03] MEDS ORDERED: INSULIN ASPART SUPPLEMENTAL SCALE SQ SCH (16:00)
[2017-04-03] MEDS: INSULIN ASPART SUPPLEMENTAL SCALE SQ SCH ×2 (17:18→22:27)
[2017-04-04] VITALS (16 sets, daily range): BP systolic 95–128; BP diastolic 47–66; PULSE 64–103; RESP 17–30; TEMP 97.4–98.2; O2SAT 92–99
[2017-04-04] MEDS: CHLORHEXIDINE GLUCONATE 2 % 1 PACK (2 CLOTHS) TOP SCH (02:00)
[2017-04-04 04:00] LABS: AUTOMATED NEUTROPHIL # 1.8 TH/MM3 (1.8-7.7); BASOPHIL % 1.1 % (0.0-2.0); EOSINOPHIL # 0.1 TH/MM3 (0-0.4); EOSINOPHIL % 3.9 % (0.0-4.0); HEMATOCRIT 39.7 % (39.0-51.0); LYMPH % 33.7 % (9.0-44.0); LYMPHOCYTE # 1.2 TH/MM3 (1.0-4.8); MEAN CELL VOLUME 92.4 FL (80.0-100.0); MEAN CORPUSCULAR HEMOGLOBIN 31.4 PG (27.0-34.0); MEAN CORPUSCULAR HGB CONC 33.9 % (32.0-36.0); MONO % 11.3 % (0.0-8.0); PLATELET COUNT 51 TH/MM3 (150-450); RED BLOOD COUNT 4.29 MIL/MM3 (4.50-5.90); RED CELL DISTRIBUTION WIDTH 15.2 % (11.6-17.2); WHITE BLOOD COUNT 3.7 TH/MM3 (4.0-11.0)
[2017-04-04 04:21] LABS: ANION GAP 7 MEQ/L (5-15); AST (GOT) 10 U/L (15-37); BICARBONATE 32.5 MEQ/L (21.0-32.0); BLOOD UREA NITROGEN 16 MG/DL (7-18); CHLORIDE 101 MEQ/L (98-107); GLOMERULAR FILTRATION RATE 109 ML/MIN (>89); MAGNESIUM 2.2 MG/DL (1.5-2.5); POTASSIUM 3.9 MEQ/L (3.5-5.1); SODIUM (NA) 140 MEQ/L (136-145)
[2017-04-04 04:26] LABS: HEMO FLAGS AUTO DIFF
[2017-04-04 04:27] LABS: ALKALINE PHOSPHATASE 59 U/L (45-117); ALT (GPT) 13 U/L (12-78); TOTAL BILIRUBIN ADULT 0.6 MG/DL (0.2-1.0)
[2017-04-04] MEDS: INSULIN ASPART SUPPLEMENTAL SCALE SQ SCH ×4 (06:24→21:56)
[2017-04-04 07:13] LABS: PLATELET ESTIMATE SMEAR LOW (NORMAL); PLATELET MORPHOLOGY NORMAL (NORMAL); SCAN/DIFF AUTO DIFF CONFIRMED
[2017-04-04] MEDS ORDERED: FLUMAZENIL 0.5 MG/5 ML VIAL IV PUSH PRN (08:15)
[2017-04-04] MEDS ORDERED: LORazepam 2 MG/ML VIAL IV PUSH PRN ×3 (08:15)
[2017-04-04] MEDS ORDERED: SODIUM CHLOR 0.9% 250 ML INJ 250 ML IV ONE (08:15)
[2017-04-04] MEDS ORDERED: LORazepam 2 MG TAB PO PRN (08:15)
[2017-04-04] MEDS ORDERED: HALOPERIDOL LACTATE 5 MG/ML AMP IM PRN (08:15)
[2017-04-04] MEDS: FOLIC ACID 1 MG TAB PO SCH (08:30)
[2017-04-04] MEDS: MULTIVITAMINS/MINERALS THERAPEUTIC TAB PO SCH (08:30)
[2017-04-04] MEDS: THIAMINE HCL 100 MG TAB PO SCH (08:30)
[2017-04-04] MEDS: metFORMIN HCL 500 MG TAB PO SCH ×2 (08:30→18:30)
[2017-04-04] MEDS: MORPHINE SULFATE 4 MG/ML INJ IV PRN (08:31)
[2017-04-04] MEDS: DOCUSATE SODIUM 50 MG/SENNA 8.6 MG TAB PO SCH ×2 (08:33→22:14)
[2017-04-04] MEDS: SODIUM CHLORIDE 0.9% FLUSH 10 ML FLUSH SCH ×2 (09:00→22:14)
--- NOTE | 2017-04-04 09:11 | HHI.PR ---
Subjective Remarks Follow-up subarachnoid hemorrhage and thrombocytopenia. Consulted by critical care medicine for medical management and transfer of care. Patient denies headache, dizziness, numbness and focal weakness. States he has quit drinking but alcohol level on admission 207. Discussed with RN Objective Vitals Vital Signs Date Time Temp Pulse Resp B/P Pulse Ox O2 Delivery O2 Flow Rate FiO2 04/04/17 06:00 97.9 65 23 106/52 95 04/04/17 05:00 68 17 97/47 96 04/04/17 04:00 97.8 71 30 112/65 96 04/04/17 03:00 67 21 102/65 92 04/04/17 02:00 64 20 95/50 92 04/04/17 01:00 68 20 128/65 93 04/04/17 00:00 98.0 80 23 118/57 98 04/03/17 23:00 80 21 130/77 97 04/03/17 23:00 82 04/03/17 22:00 79 24 129/66 91 04/03/17 21:00 83 22 135/77 96 04/03/17 20:00 98.3 78 20 104/71 94 04/03/17 19:29 97 Nasal Cannula 2.00 04/03/17 19:00 96 Room Air 04/03/17 19:00 97.6 78 22 118/57 95 04/03/17 18:00 85 04/03/17 16:00 97.6 87 24 113/69 92 04/03/17 16:00 87 04/03/17 14:00 83 04/03/17 12:00 97.8 90 30 135/71 94 04/03/17 12:00 90 04/03/17 10:00 83 I/O 04/03/17 04/03/17 04/03/17 04/04/17 04/04/17 04/04/17 07:00 15:00 23:00 07:00 15:00 23:00 Intake Total 500 ml 660 ml 240 ml 400 ml Output Total 600 ml 800 ml 0 ml 1500 ml Balance -100 ml -140 ml 240 ml -1100 ml Intake Oral 0 ml 660 ml 240 ml 400 ml IV Total 500 ml Output Urine Total 600 ml 800 ml 1500 ml Stool Total 0 ml 0 ml # Voids 2 # Bowel Movements 0 0 Result Diagram: 04/04/1730804/04/17308 Imaging Last Impressions Head CT 04/02/174 Signed Impressions: Service Date/Time: March 00:15 - CONCLUSION: Evidence of closed head injury with subarachnoid hemorrhage is bilateral temporal and right mid parietal region. Left posterior parietal scalp hematoma without evidence of skull fracture. Anuel Brennan MD Chest X-Ray 04/02/174 Signed Impressions: Service Date/Time: Sunday, April 02, 2017 23:55 - CONCLUSION: No acute findings. No evidence of pneumothorax. Anuel Brennan MD Cervical Spine CT 04/02/17 0000 Signed Impressions: Service Date/Time: March 00:17 - CONCLUSION: Discogenic degenerative changes at C5-6 without neural foraminal narrowing. No evidence of acute fracture or spondylolisthesis. Anuel Brennan MD Objective Remarks GENERAL: Well-nourished, well-developed patient. Oriented 3. No hallucinations SKIN: Warm and dry. HEAD: Normocephalic. EYES: No scleral icterus. No injection or drainage. NECK: Supple, trachea midline. No JVD or lymphadenopathy. CARDIOVASCULAR: Regular rate and rhythm without murmurs, gallops, or rubs. RESPIRATORY: Breath sounds equal bilaterally. No accessory muscle use. GASTROINTESTINAL: Abdomen soft, non-tender, nondistended. MUSCULOSKELETAL: No cyanosis, or edema. BACK: Nontender without obvious deformity. No CVA tenderness. EXTREMITIES: No clubbing cyanosis or edema. No tremors A/P Problem List: (1) Subarachnoid hemorrhage ICD Code: I60.9 Status: Acute (2) Alcohol intoxication ICD Code: F10.929 Status: Acute Assessment and Plan Subarachnoid hemorrhage. Stable - Traumatic - Neuro checks per unit protocol - Repeat CT head pending. Transfer to [facility]. if okay with neurosurgery Thrombocytopenia - Most likely due to chronic alcohol use - Transfuse platelets to keep platelet count close to 90 due to ICH. We will transfuse today - Ultrasound to evaluate liver and spleen and consider hematology consult. History of liver cirrhosis Diabetes mellitus -Continue metformin - Insulin sliding scale Alcohol intoxication - Monitor for withdrawal. CIWA 13 at this time - Thiamine folate multivitamin - IV hydration - Ativan when necessary DVT GI prophylaxis - Teds SCDs - No pharmacological DVT prophylaxis due to acute ICH and thrombocytopenia - Pepcid Discharge Planning Not ready for discharge Problem Qualifiers (1) Alcohol intoxication: Qualified Code: F10.929 - Alcohol intoxication, with unspecified complication Andrez Broussard MD Apr 04, 2017 09:11
[2017-04-04] MEDS: LORazepam 2 MG/ML VIAL IV PUSH PRN ×2 (09:13→14:45)
--- NOTE | 2017-04-04 10:02 | RADRPT ---
EXAM DATE/TIME: 04/04/2017 09:42 [facility] COMPARISON: CT BRAIN W/O CONTRAST, April 03, 2017, 0:15. INDICATIONS : Follow up bleed. RADIATION DOSE: 56.35 CTDIvol (mGy) MEDICAL HISTORY : Cardiovascular disease. SURGICAL HISTORY : Tonsillectomy. ENCOUNTER: Subsequent ACUITY: 2 days PAIN SCALE: 3/10 LOCATION: Bilateral cranial TECHNIQUE: Multiple contiguous axial images were obtained of the head. Using automated exposure control and adj ustment of the mA and/or kV according to patient size, radiation dose was kept as low as reasonably a chievable to obtain optimal diagnostic quality images. DICOM format image data is available electro nically for review and comparison. FINDINGS: There has been slight interval increase in prominence of hemorrhage in the anterior left temporal reg ion. Minimal stable right temporal subarachnoid blood. No evidence of significant brain edema or shif t. Nothing to suggest acute infarction. No drainable hemorrhagic collections. Extracranial structures are benign and intact. CONCLUSION: Slight increase in prominence of left temporal hemorrhage. Rakesh Gandhi MD on April 04, 2017 at 9:58 Board Certified Radiologist. This report was verified electronically.
--- NOTE | 2017-04-04 15:48 | RADRPT ---
EXAM DATE/TIME: 04/04/2017 15:10 [facility] COMPARISON: No previous studies available for comparison. INDICATIONS : Cirrhosis; thrombocytopenia. MEDICAL HISTORY : Hepatitis C. Diabetic. SURGICAL HISTORY : Tonsillectomy. Right wrist surgery. ENCOUNTER: Initial ACUITY: 1 day PAIN SCORE: 0/10 LOCATION: Bilateral upper quadrant MEASUREMENTS: LIVER: 17.8 cm length COMMON DUCT: 3 mm RIGHT KIDNEY: 11.0 x 5.7 x 5.2 cm SPLEEN: 11.6 cm length FINDINGS: LIVER: Normal echotexture without focal lesion or ductal dilatation. COMMON DUCT: No intraluminal mass or stone visualized. GALLBLADDER: Contains no stones, demonstrates no wall thickening or pericholecystic fluid. PANCREAS: Obscured by intestinal gas RIGHT KIDNEY: No hydronephrosis, stone or mass. SPLEEN: Upper limits of normal size. No focal lesion. CONCLUSION: No focal abnormalities Rakesh Gandhi MD on April 04, 2017 at 15:43 Board Certified Radiologist. This report was verified electronically.
--- NOTE | 2017-04-04 17:11 | HHI.NSPN ---
(Deja Dee) Note Status Status: Progress Note (Deja Dee) Interval History Interval History This is a 66-year-old male who was brought by EMS after he tripped and fell down. Apparently he was at a local store and was walking up the ramp, when he tripped and lost his balance and fell backwards hitting his head on the concrete floor. Reports that patient had positive loss of consciousness on scene. The noted. No tongue biting. No incontinence of stool or urine. His. He denies any sensory loss. Reports that patient appears intoxicated. He denies any alcohol ingestion, denies any drug ingestion. CT of the brain showed Evidence of closed head injury with subarachnoid hemorrhage is bilateral temporal and right mid parietal region. Neurosurgical consultation was requested 04/04: pt seen during am rounds, doing well, sitting up on side of bed. mild posterior head pain from trauma. No nausea, vomiting, seizures, focal weakness. (Deja Dee) Interval History 04/[address] brain today (Rasheed Duque MD) Labs, Micro, & Vital Signs Results Date Time Temp Pulse Resp B/P Pulse Ox O2 Delivery O2 Flow Rate FiO2 04/04/17 12:00 97.4 72 19 102/60 99 04/04/17 08:00 97.6 89 25 102/60 96 04/04/17 07:00 94 Nasal Cannula 2.00 04/04/17 07:00 71 04/04/17 06:00 97.9 65 23 106/52 95 04/04/17 05:00 68 17 97/47 96 04/04/17 04:00 97.8 71 30 112/65 96 04/04/17 03:00 67 21 102/65 92 04/04/17 02:00 64 20 95/50 92 04/04/17 01:00 68 20 128/65 93 04/04/17 00:00 98.0 80 23 118/57 98 04/03/17 23:00 80 21 130/77 97 04/03/17 23:00 82 04/03/17 22:00 79 24 129/66 91 04/03/17 21:00 83 22 135/77 96 04/03/17 20:00 98.3 78 20 104/71 94 04/03/17 19:29 97 Nasal Cannula 2.00 04/03/17 19:00 96 Room Air 04/03/17 19:00 97.6 78 22 118/57 95 04/03/17 18:00 85 04/04/17 07:00 Intake Total 1300 ml Output Total 2300 ml Balance -1000 ml Constitutional Vital Signs Date Time Temp Pulse Resp B/P Pulse Ox O2 Delivery O2 Flow Rate FiO2 04/04/17 12:00 97.4 72 19 102/60 99 04/04/17 08:00 97.6 89 25 102/60 96 04/04/17 07:00 94 Nasal Cannula 2.00 04/04/17 07:00 71 04/04/17 06:00 97.9 65 23 106/52 95 04/04/17 05:00 68 17 97/47 96 04/04/17 04:00 97.8 71 30 112/65 96 04/04/17 03:00 67 21 102/65 92 04/04/17 02:00 64 20 95/50 92 04/04/17 01:00 68 20 128/65 93 04/04/17 00:00 98.0 80 23 118/57 98 04/03/17 23:00 80 21 130/77 97 04/03/17 23:00 82 04/03/17 22:00 79 24 129/66 91 04/03/17 21:00 83 22 135/77 96 04/03/17 20:00 98.3 78 20 104/71 94 04/03/17 19:29 97 Nasal Cannula 2.00 04/03/17 19:00 96 Room Air 04/03/17 19:00 97.6 78 22 118/57 95 04/03/17 18:00 85 04/04/17 07:00 Intake Total 1300 ml Output Total 2300 ml Balance -1000 ml (Deja Dee) Review of Systems/Exam Exam Mr. Rodriguez is alert, awake and oriented to place and person. Speech is fluent. Cranial nerve examination: pupils to be equal, round and reactive to light. Extra-ocular movements are intact. Facial motor and sensory function are normal and symmetrical Neck is soft and supple Muscle strength is normal in all muscle groups of both upper and lower extremities. Sensory examination is intact to light touch and pin prick in both the upper and lower extremities. bilateral plantar flexion response. Cerebellar examination is unremarkable, without deficits. (Deja Dee) Exam Mr. Valentine is alert, awake and oriented to place and person. Speech is fluent. GCS 15 Cranial nerve examination: pupils to be equal, round and reactive to light. Extra-ocular movements are intact. Facial motor and sensory function are normal and symmetrical Neck is soft and supple Muscle strength is normal in all muscle groups of both upper and lower extremities. Sensory examination is intact to light touch and pin prick in both the upper and lower extremities. bilateral plantar flexion response. Cerebellar examination is unremarkable (Rasheed Duque MD) Medications Current Medications Current Medications Medications (Trade) Dose Ordered Sig/Sameera Route PRN Reason Start Time Stop Time Status Last Admin Dose Admin Sodium Chloride (NS Flush) 2 ml UNSCH PRN IV FLUSH FLUSH AFTER USING IV ACCESS 04/03/17 01:15 Sodium Chloride (NS Flush) 2 ml BID .XX 04/03/17 09:00 04/04/17 09:00 Acetaminophen (Tylenol) 650 mg Q6H PRN PO PAIN 1-5 AND/OR FEVER >101F 04/03/17 01:15 04/04/17 08:30 Morphine Sulfate (Morphine Inj) 2 mg Q2H PRN IV PAIN SCALE 6 TO 10 04/03/17 01:15 04/04/17 08:31 Ondansetron HCl (Zofran Inj) 4 mg Q6H PRN IV NAUSEA OR VOMITING 04/03/17 01:15 Miscellaneous Information 1 Q361D XX 04/03/17 01:15 Chlorhexidine Gluconate (Chlorhexidine 2% Cloth) 3 pack Taper DAILY@04 TOP 04/03/17 04:00 03/30/18 03:59 04/04/17 02:00 Chlorhexidine Gluconate (Chlorhexidine 2% Cloth) 3 pack UNSCH PRN TOP HYGIENIC CARE 04/03/17 01:15 Senna/Docusate Sodium (Tess-Colace) 1 tab BID PO 04/03/17 09:00 04/03/17 22:45 Magnesium Hydroxide (Milk Of Magnesia Liq) 30 ml Q12H PRN PO MILD - MODERATE CONSTIPATION 04/03/17 01:15 Sennosides (Senokot) 17.2 mg Q12H PRN PO MODERATE - SEVERE CONSTIPATION 04/03/17 01:15 Bisacodyl (Dulcolax Supp) 10 mg DAILY PRN RECTAL SEVERE CONSITIPATION 04/03/17 01:15 Lactulose (Lactulose Liq) 30 ml DAILY PRN PO SEVERE CONSITIPATION 04/03/17 01:15 Metformin HCl (Glucophage) 500 mg BIDPC PO 04/03/17 12:30 04/04/17 08:30 Dextrose (D50w (Vial) Inj) 50 ml UNSCH PRN IV HYPOGLYCEMIA-SEE COMMENTS 04/03/17 12:30 Glucagon 1 mg 1 mg UNSCH PRN OTHER HYPOGLYCEMIA-SEE COMMENTS 04/03/17 12:30 Sodium Chloride (NS 250 ml Inj) 250 ml @ 15 mls/hr ONCE ONCE IV 04/04/17 08:15 04/05/17 00:54 Folic Acid (Folate) 1 mg DAILY PO 04/04/17 09:00 04/09/17 08:59 04/04/17 08:30 Thiamine HCl (Vitamin B1) 100 mg DAILY PO 04/04/17 09:00 04/04/17 08:30 Multivitamins/ Minerals Therapeutic (Theragran M Tab) 1 tab DAILY PO 04/04/17 09:00 04/09/17 08:59 04/04/17 08:30 Flumazenil (Romazicon Inj) 0.2 mg Q1M PRN IV PUSH SEE LABEL COMMENTS 04/04/17 08:15 Lorazepam (Ativan) 1 mg Q4H PRN PO CIWA 8 - 10 04/04/17 08:15 Lorazepam (Ativan Inj) 1 mg Q4H PRN IV PUSH CIWA 8 - 10 04/04/17 08:15 Lorazepam (Ativan) 2 mg Q2H PRN PO CIWA 11-14 04/04/17 08:15 Lorazepam (Ativan Inj) 2 mg Q2H PRN IV PUSH CIWA 11-14 04/04/17 08:15 04/04/17 14:45 Lorazepam (Ativan Inj) 2 mg Q1H PRN IV PUSH CIWA 15-20 04/04/17 08:15 Lorazepam (Ativan Inj) 2 mg Q15M PRN IV PUSH CIWA > 20 04/04/17 08:15 04/04/17 15:51 Haloperidol Lactate (Haldol Inj) 2 mg Q15M PRN IM SEE LABEL COMMENTS 04/04/17 08:15 Chlordiazepoxide (Librium) 25 mg TID PO 04/04/17 18:00 (Deja Dee) Current Medications Current Medications Sodium Chloride 2 ml 2 ml UNSCH PRN IVF FLUSH AFTER USING IV ACCESS Last administered on 04/02/17 23:54; Start 04/02/17 at 23:30; Stop 04/03/17 at 01:17 ; Status DC Sodium Chloride (NS 1000 ml Inj) 1,000 ml @ 1,000 mls/hr Q1H ONCE IV Last administered on 04/02/17 23:54; Start 04/02/17 at 23:24; Stop 04/03/17 at 00:23 ; Status DC Tetanus/ Diphtheria Toxoids (Tetanus/ Diphtheria Tox Adult) 0.5 ml ONCE ONCE IM Last administered on 04/02/17 23:55; Start 04/02/17 at 23:30; Stop 04/02/17 at 23:31; Status DC Sodium Chloride (NS Flush) 2 ml UNSCH PRN IV FLUSH FLUSH AFTER USING IV ACCESS ; Start 04/03/17 at 01:15 Sodium Chloride (NS Flush) 2 ml BID .XX Last administered on 04/05/17 09:00; Start 04/03/17 at 09:00 Acetaminophen (Tylenol) 650 mg Q6H PRN PO PAIN 1-5 AND/OR FEVER >101F Last administered on 04/04/17 08:30; Start 04/03/17 at 01:15 Morphine Sulfate (Morphine Inj) 2 mg Q2H PRN IV PAIN SCALE 6 TO 10 Last administered on 04/04/17 08:31; Start 04/03/17 at 01:15 Lorazepam (Ativan Inj) 2 mg Q4H PRN IV Agitation/Sedation; Start 04/03/17 at 01 :15; Stop 04/04/17 at 08:10; Status DC Ondansetron HCl (Zofran Inj) 4 mg Q6H PRN IV NAUSEA OR VOMITING; Start at 01:15 Albuterol/ Ipratropium (Duoneb Neb) 1 ampule Q2HR NEB PRN INH WHEEZING Last administered on 04/04/17 23:55; Start 04/03/17 at 01:15 Miscellaneous Information 1 Q361D XX ; Start 04/03/17 at 01:15 Chlorhexidine Gluconate (Chlorhexidine 2% Cloth) 3 pack Taper DAILY@04 TOP Last administered on 04/05/17 02:00; Start 04/03/17 at 04:00; Stop 03/30/18 at 03:59 Chlorhexidine Gluconate (Chlorhexidine 2% Cloth) 3 pack UNSCH PRN TOP HYGIENIC CARE; Start 04/03/17 at 01:15 Senna/Docusate Sodium (Tess-Colace) 1 tab BID PO Last administered on 04/05/17 09:14; Start 04/03/17 at 09:00 Magnesium Hydroxide (Milk Of Magnesia Liq) 30 ml Q12H PRN PO MILD - MODERATE CONSTIPATION; Start 04/03/17 at 01:15 Sennosides (Senokot) 17.2 mg Q12H PRN PO MODERATE - SEVERE CONSTIPATION; Start 04/03/17 at 01:15 Bisacodyl (Dulcolax Supp) 10 mg DAILY PRN RECTAL SEVERE CONSITIPATION; Start at 01:15 Lactulose 30 ml 30 ml DAILY PRN PO SEVERE CONSITIPATION; Start 04/03/17 at 01: 15 Multivitamins/ Thiamine HCl/ Folic Acid/ Dextrose/Sodium Chloride (Mvi-12 Inj/ Thiamine Inj/ Folvite Inj/ D5W-NS 500 ml Inj) 511.2 ml @ 125 mls/hr ONCE ONCE IV Last administered on 04/03/17 02:14; Start 04/03/17 at 03:15; Stop at 07:20; Status DC Metformin HCl (Glucophage) 500 mg BIDPC PO Last administered on 04/04/17 18:30 ; Start 04/03/17 at 12:30; Status Hold Dextrose (D50w (Vial) Inj) 50 ml UNSCH PRN IV HYPOGLYCEMIA-SEE COMMENTS; Start 04/03/17 at 12:30 Glucagon (Glucagon Inj) 1 mg UNSCH PRN OTHER HYPOGLYCEMIA-SEE COMMENTS; Start 04/03/17 at 12:30 Insulin Aspart (NovoLOG SUPPLEMENTAL SCALE) 1 ACHS SLIDING SCALE SQ ; Start at 16:00; Stop 04/03/17 at 16:00; Status DC Insulin Aspart 1 1 ACHS SLIDING SCALE SQ Last administered on 04/05/17 11:00; Start 04/03/17 at 16:00 Sodium Chloride (NS 250 ml Inj) 250 ml @ 15 mls/hr ONCE ONCE IV ; Start at 08:15; Stop 04/05/17 at 00:54; Status DC Folic Acid (Folate) 1 mg DAILY PO Last administered on 04/05/17 09:14; Start at 09:00; Stop 04/09/17 at 08:59 Thiamine HCl (Vitamin B1) 100 mg DAILY PO Last administered on 04/05/17 09:14; Start 04/04/17 at 09:00 Multivitamins/ Minerals Therapeutic (Theragran M Tab) 1 tab DAILY PO Last administered on 04/05/17 09:14; Start 04/04/17 at 09:00; Stop 04/09/17 at 08:59 Flumazenil (Romazicon Inj) 0.2 mg Q1M PRN IV PUSH SEE LABEL COMMENTS; Start at 08:15 Lorazepam (Ativan) 1 mg Q4H PRN PO CIWA 8 - 10; Start 04/04/17 at 08:15 Lorazepam (Ativan Inj) 1 mg Q4H PRN IV PUSH CIWA 8 - 10 Last administered on 08:00; Start 04/04/17 at 08:15 Lorazepam (Ativan) 2 mg Q2H PRN PO CIWA 11-14; Start 04/04/17 at 08:15 Lorazepam (Ativan Inj) 2 mg Q2H PRN IV PUSH CIWA 11-14 Last administered on 14:45; Start 04/04/17 at 08:15 Lorazepam (Ativan Inj) 2 mg Q1H PRN IV PUSH CIWA 15-20; Start 04/04/17 at 08:15 Lorazepam (Ativan Inj) 2 mg Q15M PRN IV PUSH CIWA > 20 Last administered on 15:51; Start 04/04/17 at 08:15 Haloperidol Lactate (Haldol Inj) 2 mg Q15M PRN IM SEE LABEL COMMENTS; Start at 08:15 Chlordiazepoxide (Librium) 25 mg TID PO Last administered on 04/05/17 09:14; Start 04/04/17 at 18:00 Albuterol/ Ipratropium (Duoneb Neb) 1 ampule Q6HR NEB NEB Last administered on 04/05/17 09:53; Start 04/05/17 at 10:00 Methylprednisolone Sodium Succinate (SoluMEDROL INJ) 40 mg Q12HR IV PUSH Last administered on 04/05/17 09:14; Start 04/05/17 at 07:45 Iohexol (Omnipaque 350 Inj) 70 ml STK-MED ONCE IV Last administered on 08:27; Start 04/05/17 at 08:27; Stop 04/05/17 at 08:28; Status DC (Rasheed Duque MD) Medical Decision Making MDM Remarks 66 y/o male with mild TBI, traumatic right SAH, intraparenchymal hemorrhage without mass effect or midline shift, f/u CT Head 04/04 with very slight increase in bleed but otherwise stable (Deja Dee) MDM Remarks Last Impressions CT Angiography 04/05/17 0000 Signed Impressions: Service Date/Time: Wednesday, April 05, 2017 08:13 - CONCLUSION: 1. No evidence for pulmonary embolism. 2. Severe emphysema, patchy airspace disease and basilar dependent atelectatic changes. 3. Nodular focus in the superior segment right lower lobe as above. 4. [address] chest recommended to assess for resolution of these findings. Jose Hansen MD Liver Ultrasound 04/04/17 0811 Signed Impressions: Service Date/Time: Tuesday, April 04, 2017 15:10 - CONCLUSION: No focal abnormalities Rakesh Gandhi MD Head CT 04/04/17 0000 Signed Impressions: Service Date/Time: Tuesday, April 04, 2017 09:42 - CONCLUSION: Slight increase in prominence of left temporal hemorrhage. Rakesh Gandhi MD Chest X-Ray 04/02/17 6921 Signed Impressions: Service Date/Time: Sunday, April 02, 2017 23:55 - CONCLUSION: No acute findings. No evidence of pneumothorax. Anuel Brennan MD Cervical Spine CT 04/02/17 0000 Signed Impressions: Service Date/Time: March 00:17 - CONCLUSION: Discogenic degenerative changes at C5-6 without neural foraminal narrowing. No evidence of acute fracture or spondylolisthesis. Anuel Brennan MD (Rasheed Duque MD) Plan Plan Remarks f/u CT Head reviewed, cont non-op mgt, cont neuro checks, nonchemical dvt prophylaxis, neuro stable, (Deja Dee) Attending Statement Continue neuro checks in a serial fashion. A follow-up CT of the head stable Thrombocytopenia . due to chronic alcohol use keep platelet count close to 90 due to ICH Pulmonary. Cotinue aggressive pulmonary toilette, nasotracheal suction, and breathing treatments with nebulizers. daily PT and OT Nutrition. oral diet Renal. Continue to monitor closely urine output, BUN and creatinine Diabetes mellitus. Continue to Monitor serial Acu checks and SSI as needed Alcohol intoxicationContinue to m onitor for withdrawal Thiamine folate multivitamin. Ativan when necessary ID Continue to monitor for signs of infection Continue Protonix for stress ulcer prophylaxis Continue Ron hose and SCD's for DVT prophylaxis The exam, history, and the medical decision-making described in the above note were completed with the assistance of the mid-level provider. I reviewed and agree with the findings presented. I attest that I had a [id number] encounter with the patient on the same day, and personally performed and documented my assessment and findings in the medical record. (Rasheed Duque MD) Deja Dee Apr 04, 2017 17:11 Rasheed Duque MD Apr 05, 2017 11:37
[2017-04-04] MEDS: chlordiazePOXIDE 25 MG CAP PO SCH (18:30)
[2017-04-05] VITALS (14 sets, daily range): BP systolic 115–148; BP diastolic 67–89; PULSE 89–128; RESP 10–32; TEMP 97.4–99; O2SAT 90–99
[2017-04-05] MEDS: CHLORHEXIDINE GLUCONATE 2 % 1 PACK (2 CLOTHS) TOP SCH ×2 (02:00→22:48)
[2017-04-05 04:15] LABS: AUTOMATED NEUTROPHIL # 2.7 TH/MM3 (1.8-7.7); BASOPHIL # 0.1 TH/MM3 (0-0.2); BASOPHIL % 1.3 % (0.0-2.0); EOSINOPHIL # 0.1 TH/MM3 (0-0.4); EOSINOPHIL % 2.5 % (0.0-4.0); HEMATOCRIT 39.6 % (39.0-51.0); LYMPH % 22.1 % (9.0-44.0); LYMPHOCYTE # 0.9 TH/MM3 (1.0-4.8); MEAN CELL VOLUME 91.7 FL (80.0-100.0); MEAN CORPUSCULAR HEMOGLOBIN 30.3 PG (27.0-34.0); MEAN CORPUSCULAR HGB CONC 33.1 % (32.0-36.0); NEUT % 63.1 % (16.0-70.0); PLATELET COUNT 93 TH/MM3 (150-450); RED BLOOD COUNT 4.32 MIL/MM3 (4.50-5.90); RED CELL DISTRIBUTION WIDTH 15.6 % (11.6-17.2); WHITE BLOOD COUNT 4.3 TH/MM3 (4.0-11.0)
[2017-04-05 04:21] LABS: HEMO FLAGS AUTO DIFF
[2017-04-05] MEDS: INSULIN ASPART SUPPLEMENTAL SCALE SQ SCH ×4 (06:17→19:35)
--- NOTE | 2017-04-05 07:17 | RADRPT ---
EXAM DATE/TIME: 04/05/2017 06:53 [facility] COMPARISON: CHEST SINGLE AP, April 02, 2017, 23:55. INDICATIONS : Shortness of breath and cough. MEDICAL HISTORY : None. SURGICAL HISTORY : None. ENCOUNTER: Subsequent ACUITY: 4 - 6 days PAIN SCORE: 0/10 LOCATION: chest FINDINGS: There is mild interstitial opacity at the bases as before. In addition there is patchy airspace disea se at both lung bases new from previous. Heart size normal. Osseous structures are intact. CONCLUSION: Mild interstitial and patchy lower lobe air space disease. Jose Hansen MD on April 05, 2017 at 7:14 Board Certified Radiologist. This report was verified electronically.
--- NOTE | 2017-04-05 07:35 | HHI.CCPN ---
Subjective Remarks/Hospital Course 04/03: 66-year-old male who was brought by EMS after he tripped and fell. As per EMS, patient was at a local store and was walking up the ramp, when he tripped and lost his balance and fell backwards hitting his head on the concrete floor. Reports that patient had positive loss of consciousness on scene. Reports that patient appears intoxicated. Patient with no complaints at this time, patient denies any alcohol ingestion, denies any drug ingestion. 04/05: Regular care will be consulted by hospitalist service for increasing O2 requirement. Patient dropped O2 sats to the 80s overnight and was placed on 6 L nasal cannula with which his O2 sats were running 91%. I ordered a stat chest x-ray and place patient on a 50% Ventimask with which his O2 sats around 93%. Patient was laying in bed and denied any worsening shortness of breath or chest pain. Denied any nausea vomiting. Nurses did not report any episodes of emesis. Patient has a history of smoking at least one pack per day for many years. He did receive DuoNeb nebulizer treatment within the last hour or so. He is otherwise laying flat in bed and does not appear tachypneic or dyspneic. Objective Vital Signs Date Time Temp Pulse Resp B/P Pulse Ox O2 Delivery O2 Flow Rate FiO2 04/05/17 06:35 92 Venturi Mask 6.00 50 04/05/17 06:00 97.8 99 29 115/67 Intake and Output 04/04/17 04/04/17 04/05/17 08:00 16:00 00:00 Intake Total 400 ml 250 ml 240 ml Output Total 1500 ml 750 ml 450 ml Balance -1100 ml -500 ml -210 ml Result Diagram: 04/05/17 0308 04/04/17 0309 Imaging CXR 04/05 (personally reviewed) : The lung dunbar appear clear with no obvious infiltrates or effusions. Last Impressions Liver Ultrasound 04/04/17 0811 Signed Impressions: Service Date/Time: Tuesday, April 04, 2017 15:10 - CONCLUSION: No focal abnormalities Rakesh Gandhi MD Head CT 04/04/17 0000 Signed Impressions: Service Date/Time: Tuesday, April 04, 2017 09:42 - CONCLUSION: Slight increase in prominence of left temporal hemorrhage. Rakesh Gandhi MD Chest X-Ray 04/02/17 2324 Signed Impressions: Service Date/Time: Sunday, April 02, 2017 23:55 - CONCLUSION: No acute findings. No evidence of pneumothorax. Anuel Brennan MD Cervical Spine CT 04/02/17 0000 Signed Impressions: Service Date/Time: March 00:17 - CONCLUSION: Discogenic degenerative changes at C5-6 without neural foraminal narrowing. No evidence of acute fracture or spondylolisthesis. Anuel Brennan MD Objective Remarks GENERAL: Well-nourished, well-developed patient. SKIN: Warm and dry. HEAD: Normocephalic. EYES: No scleral icterus. No injection or drainage. NECK: Supple, trachea midline. No JVD or lymphadenopathy. CARDIOVASCULAR: Regular rate and rhythm without murmurs, gallops, or rubs. RESPIRATORY: Breath sounds equal bilaterally. No accessory muscle use. GASTROINTESTINAL: Abdomen soft, non-tender, nondistended. MUSCULOSKELETAL: No cyanosis, or edema. BACK: Nontender without obvious deformity. No CVA tenderness. EXTREMITIES: No clubbing cyanosis or edema A/P Assessment and Plan Subarachnoid hemorrhage - Traumatic - Repeat head CT with stable subarachnoid hemorrhage, neurosurgery not planning any intervention and cleared patient for transfer out of ICU. - Neuro checks per unit protocol Thrombocytopenia - Most likely due to chronic alcohol use - Transfuse platelets to keep platelet count close to 90 due to ICH Acute respiratory failure Probable COPD - Chest x-ray does not show any overt aspiration or pneumonia. Will obtain CT chest to evaluate for PE/ infiltrates. Change to her nebs to every 6 hourly scheduled with every 2 hourly when necessary for wheezing. We will add Solu-Medrol 40 mg IV every 12 hourly to see if respiratory status improves. Further recommendations following review of CT chest. Diabetes mellitus - Hold metformin while in the ICU - Insulin sliding scale Alcohol intoxication/ abuse - Monitor for withdrawal - Thiamine folate multivitamin - Ativan when necessary. On librium 25mg tid DVT GI prophylaxis - Teds SCDs - No pharmacological DVT prophylaxis due to acute ICH - Raul Madrid MD Apr 05, 2017 07:35
[2017-04-05] MEDS: methylPREDNISolone SOD SUCC 40 MG/1 ML VIAL IV PUSH SCH ×4 (07:45→20:31)
[2017-04-05] MEDS ORDERED: IOHEXOL 350 MG/ML 10 ML VIAL (for RAD DIAG) IV ONE (08:27)
--- NOTE | 2017-04-05 08:37 | RADRPT ---
EXAM DATE/TIME: 04/05/2017 08:13 [facility] COMPARISON: CHEST SINGLE AP, April 05, 2017, 6:53. INDICATIONS : Hypoxia today. IV CONTRAST: 70 cc Omnipaque 350 (iohexol) IV RADIATION DOSE: 17.29 CTDIvol (mGy) MEDICAL HISTORY : Myocardial infarction. Hepatitis C. SURGICAL HISTORY : Tonsillectomy. ENCOUNTER: Initial ACUITY: 1 day PAIN SCALE: 0/10 LOCATION: Bilateral chest TECHNIQUE: Volumetric scanning of the chest was performed using a pulmonary embolism protocol MIP images were re constructed. Using automated exposure control and adjustment of the mA and/or kV according to patien t size, radiation dose was kept as low as reasonably achievable to obtain optimal diagnostic quality images. DICOM format image data is available electronically for review and comparison. FINDINGS: There are severe emphysematous changes identified, patchy basilar airspace disease and dependent atel ectasis and subpleural interstitial prominence. There is apical parenchymal scarring. In the superior segment of the right lower lobe a triangular shape nodular focus is identified measuring 1.4 x 1.4 c m in transverse and AP dimension. A focal consolidative area, scarring, or mass are differential diag nostic considerations. Subcentimeter lymph nodes in the mediastinum and hilar regions. There is no ev idence of pulmonary embolism. Coronary artery calcification is identified. Focal infiltrate in the le ft upper lobe posteriorly along the oblique fissure. Review of bone windows demonstrate remote left f ourth and fifth posterior rib fractures. CONCLUSION: 1. No evidence for pulmonary embolism. 2. Severe emphysema, patchy airspace disease and basilar dependent atelectatic changes. 3. Nodular focus in the superior segment right lower lobe as above. 4. [address] chest recommended to assess for resolution of these findings. Jose Hansen MD on April 05, 2017 at 8:31 Board Certified Radiologist. This report was verified electronically.
[2017-04-05] MEDS: metFORMIN HCL 500 MG TAB PO SCH (09:00)
[2017-04-05] MEDS: SODIUM CHLORIDE 0.9% FLUSH 10 ML FLUSH SCH ×2 (09:00→19:36)
[2017-04-05] MEDS: FOLIC ACID 1 MG TAB PO SCH (09:14)
[2017-04-05] MEDS: DOCUSATE SODIUM 50 MG/SENNA 8.6 MG TAB PO SCH ×2 (09:14→19:34)
[2017-04-05] MEDS: MULTIVITAMINS/MINERALS THERAPEUTIC TAB PO SCH (09:14)
[2017-04-05] MEDS: THIAMINE HCL 100 MG TAB PO SCH (09:14)
[2017-04-05] MEDS: chlordiazePOXIDE 25 MG CAP PO SCH ×3 (09:14→18:10)
[2017-04-05] MEDS: RESP: ALBUTEROL 2.5 MG/IPRATROPIUM 0.5 MG NEB (SCH) NEB ×3 (09:53→20:26)
[2017-04-05 09:59] LABS: PLATELET ESTIMATE SMEAR LOW (NORMAL); PLATELET MORPHOLOGY NORMAL (NORMAL); SCAN/DIFF AUTO DIFF CONFIRMED
--- NOTE | 2017-04-05 10:10 | HHI.NSPN ---
(Deja Dee) Note Status Status: Progress Note (Deja Dee) Interval History Interval History This is a 66-year-old male who was brought by EMS after he tripped and fell down. Apparently he was at a local store and was walking up the ramp, when he tripped and lost his balance and fell backwards hitting his head on the concrete floor. Reports that patient had positive loss of consciousness on scene. The noted. No tongue biting. No incontinence of stool or urine. His. He denies any sensory loss. Reports that patient appears intoxicated. He denies any alcohol ingestion, denies any drug ingestion. CT of the brain showed Evidence of closed head injury with subarachnoid hemorrhage is bilateral temporal and right mid parietal region. Neurosurgical consultation was requested 04/04: pt seen during am rounds, doing well, sitting up on side of bed. mild posterior head pain from trauma. No nausea, vomiting, seizures, focal weakness. 04/05: doing well, intermittently confused, etoh withdrawals. (Deja Dee ) Interval History 04/[address] brain stable (Rasheed Duque MD) Labs, Micro, & Vital Signs Results Date Time Temp Pulse Resp B/P Pulse Ox O2 Delivery O2 Flow Rate FiO2 04/05/17 08:00 98.0 98 21 121/75 97 04/05/17 07:55 96 Nasal Cannula 6.00 04/05/17 07:42 93 Nasal Cannula 5.00 04/05/17 07:00 96 Venturi Mask 5.00 04/05/17 07:00 92 04/05/17 06:35 92 Venturi Mask 6.00 50 04/05/17 06:00 97.8 99 29 115/67 90 04/05/17 04:00 97.6 89 10 115/67 92 04/05/17 00:00 97.8 94 28 116/69 99 04/04/17 23:58 97 Nasal Cannula 4.00 04/04/17 23:00 96 04/04/17 20:00 97.9 103 26 118/66 93 04/04/17 19:00 94 Nasal Cannula 2.00 04/04/17 16:00 97.6 78 24 115/64 98 04/04/17 15:00 94 04/04/17 12:00 97.4 72 19 102/60 99 04/04/17 11:30 98.2 109/66 04/05/17 07:00 Intake Total 610 ml Output Total 1900 ml Balance -1290 ml Constitutional Vital Signs Date Time Temp Pulse Resp B/P Pulse Ox O2 Delivery O2 Flow Rate FiO2 04/05/17 08:00 98.0 98 21 121/75 97 04/05/17 07:55 96 Nasal Cannula 6.00 04/05/17 07:42 93 Nasal Cannula 5.00 04/05/17 07:00 96 Venturi Mask 5.00 04/05/17 07:00 92 04/05/17 06:35 92 Venturi Mask 6.00 50 04/05/17 06:00 97.8 99 29 115/67 90 04/05/17 04:00 97.6 89 10 115/67 92 04/05/17 00:00 97.8 94 28 116/69 99 04/04/17 23:58 97 Nasal Cannula 4.00 04/04/17 23:00 96 04/04/17 20:00 97.9 103 26 118/66 93 04/04/17 19:00 94 Nasal Cannula 2.00 04/04/17 16:00 97.6 78 24 115/64 98 04/04/17 15:00 94 04/04/17 12:00 97.4 72 19 102/60 99 04/04/17 11:30 98.2 109/66 04/05/17 07:00 Intake Total 610 ml Output Total 1900 ml Balance -1290 ml (Deja Dee) Review of Systems/Exam Exam Mr. Rodriguez is alert, awake and oriented to place and person. Speech is fluent. Cranial nerve examination: pupils to be equal, round and reactive to light. Extra-ocular movements are intact. Facial motor and sensory function are normal and symmetrical Neck is soft and supple Muscle strength is normal in all muscle groups of both upper and lower extremities. Sensory examination is intact to light touch and pin prick in both the upper and lower extremities. bilateral plantar flexion response. Cerebellar examination is unremarkable, without deficits. (Deja Dee) Exam Mr. Valentine is alert, awake and oriented to place and person. Speech is fluent. GCS 15 Cranial nerve examination: pupils to be equal, round and reactive to light. Extra-ocular movements are intact. Facial motor and sensory function are normal and symmetrical Neck is soft and supple Muscle strength is normal in all muscle groups of both upper and lower extremities. Sensory examination is intact to light touch and pin prick in both the upper and lower extremities. bilateral plantar flexion response. Cerebellar examination is unremarkable (Rasheed Duque MD) Medications Current Medications Current Medications Medications (Trade) Dose Ordered Sig/Sameera Route PRN Reason Start Time Stop Time Status Last Admin Dose Admin Sodium Chloride (NS Flush) 2 ml UNSCH PRN IV FLUSH FLUSH AFTER USING IV ACCESS 04/03/17 01:15 Sodium Chloride (NS Flush) 2 ml BID .XX 04/03/17 09:00 04/05/17 09:00 Acetaminophen (Tylenol) 650 mg Q6H PRN PO PAIN 1-5 AND/OR FEVER >101F 04/03/17 01:15 04/04/17 08:30 Morphine Sulfate (Morphine Inj) 2 mg Q2H PRN IV PAIN SCALE 6 TO 10 04/03/17 01:15 04/04/17 08:31 Ondansetron HCl (Zofran Inj) 4 mg Q6H PRN IV NAUSEA OR VOMITING 04/03/17 01:15 Miscellaneous Information 1 Q361D XX 04/03/17 01:15 Chlorhexidine Gluconate (Chlorhexidine 2% Cloth) 3 pack Taper DAILY@04 TOP 04/03/17 04:00 03/30/18 03:59 04/05/17 02:00 Chlorhexidine Gluconate (Chlorhexidine 2% Cloth) 3 pack UNSCH PRN TOP HYGIENIC CARE 04/03/17 01:15 Senna/Docusate Sodium (Tess-Colace) 1 tab BID PO 04/03/17 09:00 04/05/17 09:14 Magnesium Hydroxide (Milk Of Magnesia Liq) 30 ml Q12H PRN PO MILD - MODERATE CONSTIPATION 04/03/17 01:15 Sennosides (Senokot) 17.2 mg Q12H PRN PO MODERATE - SEVERE CONSTIPATION 04/03/17 01:15 Bisacodyl (Dulcolax Supp) 10 mg DAILY PRN RECTAL SEVERE CONSITIPATION 04/03/17 01:15 Lactulose (Lactulose Liq) 30 ml DAILY PRN PO SEVERE CONSITIPATION 04/03/17 01:15 Metformin HCl (Glucophage) 500 mg BIDPC PO 04/03/17 12:30 Hold 04/04/17 18:30 Dextrose (D50w (Vial) Inj) 50 ml UNSCH PRN IV HYPOGLYCEMIA-SEE COMMENTS 04/03/17 12:30 Glucagon (Glucagon Inj) 1 mg UNSCH PRN OTHER HYPOGLYCEMIA-SEE COMMENTS 04/03/17 12:30 Folic Acid (Folate) 1 mg DAILY PO 04/04/17 09:00 04/09/17 08:59 04/05/17 09:14 Thiamine HCl (Vitamin B1) 100 mg DAILY PO 04/04/17 09:00 04/05/17 09:14 Multivitamins/ Minerals Therapeutic (Theragran M Tab) 1 tab DAILY PO 04/04/17 09:00 04/09/17 08:59 04/05/17 09:14 Flumazenil (Romazicon Inj) 0.2 mg Q1M PRN IV PUSH SEE LABEL COMMENTS 04/04/17 08:15 Lorazepam (Ativan) 1 mg Q4H PRN PO CIWA 8 - 10 04/04/17 08:15 Lorazepam (Ativan Inj) 1 mg Q4H PRN IV PUSH CIWA 8 - 10 04/04/17 08:15 04/05/17 08:00 Lorazepam (Ativan) 2 mg Q2H PRN PO CIWA 11-14 04/04/17 08:15 Lorazepam (Ativan Inj) 2 mg Q2H PRN IV PUSH CIWA 11-14 04/04/17 08:15 04/04/17 14:45 Lorazepam (Ativan Inj) 2 mg Q1H PRN IV PUSH CIWA 15-20 04/04/17 08:15 Lorazepam (Ativan Inj) 2 mg Q15M PRN IV PUSH CIWA > 20 04/04/17 08:15 04/04/17 15:51 Haloperidol Lactate (Haldol Inj) 2 mg Q15M PRN IM SEE LABEL COMMENTS 04/04/17 08:15 Chlordiazepoxide (Librium) 25 mg TID PO 04/04/17 18:00 04/05/17 09:14 Methylprednisolone Sodium Succinate (SoluMEDROL INJ) 40 mg Q12HR IV PUSH 04/05/17 07:45 04/05/17 09:14 (Deja Dee) Medical Decision Making MDM Remarks 66 y/o male with mild TBI, traumatic right SAH, intraparenchymal hemorrhage without mass effect or midline shift, f/u CT Head 04/04 with very slight increase in bleed but otherwise stable (Deja Dee) Plan Plan Remarks Neuro stable cont supportive care for etoh withdrawal cont neuro checks, cont nonchemical dvt prophylaxis, (Deja Dee) Attending Statement Continue neuro checks in a serial fashion. A follow-up CT of the head stable Thrombocytopenia . due to chronic alcohol use keep platelet count close to 90 due to ICH Pulmonary. Cotinue aggressive pulmonary toilette, nasotracheal suction, and breathing treatments with nebulizers. daily PT and OT Nutrition. oral diet Renal. Continue to monitor closely urine output, BUN and creatinine Diabetes mellitus. Continue to Monitor serial Acu checks and SSI as needed Alcohol intoxicationContinue to m onitor for withdrawal Thiamine folate multivitamin. Ativan when necessary ID Continue to monitor for signs of infection Continue Protonix for stress ulcer prophylaxis Continue Ron hose and SCD's for DVT prophylaxis The exam, history, and the medical decision-making described in the above note were completed with the assistance of the mid-level provider. I reviewed and agree with the findings presented. I attest that I had a [id number] encounter with the patient on the same day, and personally performed and documented my assessment and findings in the medical record. (Rashede Duque MD) Deja Dee Apr 05, 2017 10:10 Rasheed Duque MD Apr 05, 2017 11:37
[2017-04-05] MEDS: LEVOFLOXACIN 500 MG PREMIX INJ 100 ML IV SCH (13:13)
--- NOTE | 2017-04-05 13:58 | MB ---
cc: JASMIN STATON M.D. DATE OF CONSULTATION: 04/05/2017. HISTORY OF PRESENT ILLNESS: The patient is a 66-year-old male with past medical history of diabetes mellitus, tobacco and EtOH abuse who was admitted to [facility] on April [address] scan of the brain showed a closed-head injury with subarachnoid hemorrhage and left posterior parietal scalp hematoma without any evidence of skull fracture. A repeat the CT head on April 04 showed slight increase in the left temporal hemorrhage. The patient also was found to have an elevated alcohol level at that 207. He was thrombocytopenic with a platelet count of 39 on arrival. A chest x-ray on admission showed no evidence of any acute findings. During his hospital course, he required increased O2 requirements and was on 50% Ventimask early this morning; however, he was weaned down to 6 liters nasal cannula with saturation of 93% to 96%. CT angiogram of the chest was obtained which showed no evidence of pulmonary embolism; however, it showed severe emphysema, patchy airspace disease and basilar dependent atelectatic changes in addition to a nodular focus in the superior segment of the right lower lobe measuring 1.4 x 1.4 cm. On further history, the patient reports extensive history of tobacco use where he smoked two packs per day for at least 50 years. He was placed on bronchodilators and IV steroids started this morning. When seen the patient is on 6 liters nasal cannula with saturation of 96%. He denies any worsening of dyspnea from baseline. In addition, he denies any chest pain, cough or any GI symptoms. PAST MEDICAL HISTORY: Diabetes mellitus. PAST SURGICAL HISTORY: None. ALLERGIES: SULFA. REPORTED MEDICATIONS: Glucophage XR at home. CURRENT MEDICATIONS: 1. DuoNeb. The patient is on CIWA protocol. 2. Solu-Medrol. 3. Thiamine. FAMILY HISTORY: Family history is noncontributory. SOCIAL HISTORY: The patient used to smoke up to two packs per day for at least 50 years. In addition, he is an active drinker. REVIEW OF SYSTEMS: The review of systems is as per the history of present illness, and the rest of the review of systems is unremarkable. PHYSICAL EXAMINATION: GENERAL: A 66-year-old male sitting up in bed in no acute distress. VITAL SIGNS: Temperature 98.0, pulse of 92 to 98, respiratory rate of 21, blood pressure 119/65, saturation 96% on six liters oxygen. HEAD, EYES, EARS, NOSE, THROAT: Normocephalic and atraumatic. Pupils equal, round and reactive to light and accommodation. Extraocular muscles intact. Conjunctivae are pink. Nonicteric sclerae. Oral mucosa within normal limits. NECK: The neck is supple. No jugular venous distention, adenopathy or thyromegaly. Trachea in the midline. CARDIOVASCULAR: Regular rate and rhythm. Normal S1 and S2. No murmurs, rubs or gallops noted. PULMONARY: Bilateral equal air entry overall diminished. No wheezing. ABDOMEN: The abdomen is soft, nontender and no distention. Positive bowel sounds. EXTREMITIES: No cyanosis, clubbing or edema. NEUROLOGIC: No focal sensory deficit. LABORATORY DATA: Sodium 140, potassium 3.9, chloride 101, CO2 32, BUN 16, creatinine 0.72, glucose of 118. WBC 4.3, hemoglobin 13, hematocrit 39, platelet count 93,000. INR 1.1, PT 12.3, PTT 26.9. Urine drug screen negative. Alcohol level 207. RADIOGRAPHY: CT angiogram of the chest this morning showed no evidence of PE; however, it showed severe emphysema, patchy airspace disease and basilar dependent atelectatic changes and nodular focus in the superior segment of the right lower lobe. IMPRESSION: 1. Acute respiratory insufficiency. 2. COPD exacerbation. 3. Atelectasis. 4. A 1.4 x 1.4 cm nodular foci in the superior segment of the right lower lobe. 5. Active tobacco and EtOH abuse. 6. Thrombocytopenia. 7. Subarachnoid hemorrhage. RECOMMENDATIONS: 1. Wean down oxygen as tolerated and maintain sats above 92%. 2. Bronchodilators in the form of DuoNeb q. 4+ q. Plus q. 2 p.r.n. for shortness of breath. 3. Agree with IV steroids. The patient was started on Solu-Medrol 40 mg IV q. 12. Will change to q. 8. 4. Noninvasive positive pressure ventilation p.r.n. for respiratory distress. 5. Incentive spirometry care q. 1 hour while awake. 6[address] Place on empiric antibiotics in the form of Levaquin and monitor for signs of infections which include fever and WBC. 7. We will obtain a sputum culture with gram stain. 8. Will need a repeat CT scan of the chest in 3 months to follow up on the stability of the nodular foci. 9. PFT as an outpatient to assess the severity of his obstructive lung disease. 10. We will continue with folic acid, thiamine and multivitamins. 11. Monitor for signs of DTs. In addition the patient is on CIWA protocol. 12. Glycemic control per primary team. 13. Continue current treatment plan. Further recommendations will be based on the hospital course. MD BROCK Singh/VALERIY /12:53 PM /1:19 PM [id number]
[2017-04-05] MEDS: LORazepam 1 MG TAB PO PRN ×2 (20:30→22:10)
[2017-04-06] VITALS (11 sets, daily range): BP systolic 97–142; BP diastolic 57–78; PULSE 86–120; RESP 18–33; TEMP 95.7–98.4; O2SAT 83–96
[2017-04-06] MEDS: RESP: ALBUTEROL 2.5 MG/IPRATROPIUM 0.5 MG NEB (SCH) NEB ×4 (03:42→19:25)
[2017-04-06 04:22] LABS: BASOPHIL % 0.6 % (0.0-2.0); HEMATOCRIT 38.5 % (39.0-51.0); LYMPH % 6.9 % (9.0-44.0); LYMPHOCYTE # 0.4 TH/MM3 (1.0-4.8); MEAN CELL VOLUME 92.1 FL (80.0-100.0); MEAN CORPUSCULAR HEMOGLOBIN 30.9 PG (27.0-34.0); MEAN CORPUSCULAR HGB CONC 33.5 % (32.0-36.0); MONO % 4.6 % (0.0-8.0); NEUT % 87.9 % (16.0-70.0); PLATELET COUNT 81 TH/MM3 (150-450); RED BLOOD COUNT 4.18 MIL/MM3 (4.50-5.90); RED CELL DISTRIBUTION WIDTH 15.3 % (11.6-17.2); WHITE BLOOD COUNT 5.7 TH/MM3 (4.0-11.0)
[2017-04-06 04:29] LABS: HEMO FLAGS AUTO DIFF
[2017-04-06 04:58] LABS: PLATELET ESTIMATE SMEAR LOW (NORMAL); PLATELET MORPHOLOGY NORMAL (NORMAL); SCAN/DIFF AUTO DIFF CONFIRMED
[2017-04-06 05:02] LABS: BICARBONATE 32.2 MEQ/L (21.0-32.0); MAGNESIUM 2.2 MG/DL (1.5-2.5); POTASSIUM 4.4 MEQ/L (3.5-5.1)
[2017-04-06] MEDS: INSULIN ASPART SUPPLEMENTAL SCALE SQ SCH ×4 (05:32→21:14)
[2017-04-06] MEDS: methylPREDNISolone SOD SUCC 40 MG/1 ML VIAL IV PUSH SCH ×3 (05:33→21:04)
[2017-04-06] MEDS: DOCUSATE SODIUM 50 MG/SENNA 8.6 MG TAB PO SCH ×2 (09:00→21:00)
[2017-04-06] MEDS: SODIUM CHLORIDE 0.9% FLUSH 10 ML FLUSH SCH ×2 (09:00→21:03)
[2017-04-06] MEDS: chlordiazePOXIDE 25 MG CAP PO SCH ×2 (09:12→17:44)
[2017-04-06] MEDS: FOLIC ACID 1 MG TAB PO SCH (09:12)
[2017-04-06] MEDS: THIAMINE HCL 100 MG TAB PO SCH (09:12)
[2017-04-06] MEDS: NICOTINE 21 MG/24 HR PATCH T-DERMAL SCH ×2 (09:12→09:23)
[2017-04-06] MEDS: MULTIVITAMINS/MINERALS THERAPEUTIC TAB PO SCH (09:12)
[2017-04-06] MEDS ORDERED: GLUCAGON 1 MG/ML VIAL IM/SQ PRN (11:15)
[2017-04-06] MEDS ORDERED: DEXTROSE 50% IN WATER 50 ML VIAL(D50) IV PRN (11:15)
--- NOTE | 2017-04-06 11:15 | HHI.CCPN ---
Subjective Remarks/Hospital Course 04/03: 66-year-old male who was brought by EMS after he tripped and fell. As per EMS, patient was at a local store and was walking up the ramp, when he tripped and lost his balance and fell backwards hitting his head on the concrete floor. Reports that patient had positive loss of consciousness on scene. Reports that patient appears intoxicated. Patient with no complaints at this time, patient denies any alcohol ingestion, denies any drug ingestion. 04/05: Regular care will be consulted by hospitalist service for increasing O2 requirement. Patient dropped O2 sats to the 80s overnight and was placed on 6 L nasal cannula with which his O2 sats were running 91%. I ordered a stat chest x-ray and place patient on a 50% Ventimask with which his O2 sats around 93%. Patient was laying in bed and denied any worsening shortness of breath or chest pain. Denied any nausea vomiting. Nurses did not report any episodes of emesis. Patient has a history of smoking at least one pack per day for many years. He did receive DuoNeb nebulizer treatment within the last hour or so. He is otherwise laying flat in bed and does not appear tachypneic or dyspneic. 04/06: Resting comfortably in bed. On nasal cannula O2 5 L/m. Denies any shortness of breath. Objective Vital Signs Date Time Temp Pulse Resp B/P Pulse Ox O2 Delivery O2 Flow Rate FiO2 04/06/17 08:02 90 Nasal Cannula 5.00 04/06/17 08:00 98.1 86 24 108/58 04/05/17 06:35 50 Intake and Output 04/05/17 04/05/17 04/06/17 08:00 16:00 00:00 Intake Total 120 ml 804 ml 1080 ml Output Total 700 ml 1050 ml 650 ml Balance -580 ml -246 ml 430 ml Result Diagram: 04/06/17 0350 04/06/17 0350 Imaging CXR 04/05 (personally reviewed) : The lung dunbar appear clear with no obvious infiltrates or effusions. Last Impressions Liver Ultrasound 04/04/17 0811 Signed Impressions: Service Date/Time: Tuesday, April 04, 2017 15:10 - CONCLUSION: No focal abnormalities Rakesh Gandhi MD Head CT 04/04/17 0000 Signed Impressions: Service Date/Time: Tuesday, April 04, 2017 09:42 - CONCLUSION: Slight increase in prominence of left temporal hemorrhage. Rakesh Gandhi MD Chest X-Ray 04/02/17 2324 Signed Impressions: Service Date/Time: Sunday, April 02, 2017 23:55 - CONCLUSION: No acute findings. No evidence of pneumothorax. Anuel Brennan MD Cervical Spine CT 04/02/17 0000 Signed Impressions: Service Date/Time: March 00:17 - CONCLUSION: Discogenic degenerative changes at C5-6 without neural foraminal narrowing. No evidence of acute fracture or spondylolisthesis. Anuel Brennan MD Objective Remarks GENERAL: Well-nourished, well-developed patient. SKIN: Warm and dry. HEAD: Normocephalic. EYES: No scleral icterus. No injection or drainage. NECK: Supple, trachea midline. No JVD or lymphadenopathy. CARDIOVASCULAR: Regular rate and rhythm without murmurs, gallops, or rubs. RESPIRATORY: Breath sounds equal bilaterally. No accessory muscle use. GASTROINTESTINAL: Abdomen soft, non-tender, nondistended. MUSCULOSKELETAL: No cyanosis, or edema. BACK: Nontender without obvious deformity. No CVA tenderness. EXTREMITIES: No clubbing cyanosis or edema A/P Assessment and Plan Subarachnoid hemorrhage - Traumatic - Repeat head CT with stable subarachnoid hemorrhage, neurosurgery not planning any intervention. - Neuro checks per unit protocol Thrombocytopenia - Most likely due to chronic alcohol use - Transfuse platelets to keep platelet count close to 90 due to ICH Acute respiratory failure Probable COPD - Chest x-ray does not show any overt aspiration or pneumonia. CT chest negative for PE however did have infiltrates and nodule right lower lobe. Pulmonary consult requested for further evaluation. Duonebs every 6 hourly scheduled with every 2 hourly when necessary for wheezing. Solu-Medrol 40 mg IV every 8 hourly. Diabetes mellitus - Hold metformin while in the ICU - Insulin sliding scale changed to high dose on 04/06 Alcohol intoxication/ abuse - Monitor for withdrawal - Thiamine folate multivitamin - Ativan when necessary. On librium 25mg Q8hrly DVT GI prophylaxis - Teds SCDs - No pharmacological DVT prophylaxis due to acute ICH - Pepcid Patient will be transferred to hospitalist service and out of ICU for further medical management. Critical care will be signing off. Please reconsult if needed. Raul Case MD Apr 06, 2017 11:15
--- NOTE | 2017-04-06 11:27 | HHI.NSPN ---
(Deja Dee) Note Status Status: Progress Note (Deja Dee) Interval History Interval History This is a 66-year-old male who was brought by EMS after he tripped and fell down. Apparently he was at a local store and was walking up the ramp, when he tripped and lost his balance and fell backwards hitting his head on the concrete floor. Reports that patient had positive loss of consciousness on scene. The noted. No tongue biting. No incontinence of stool or urine. His. He denies any sensory loss. Reports that patient appears intoxicated. He denies any alcohol ingestion, denies any drug ingestion. CT of the brain showed Evidence of closed head injury with subarachnoid hemorrhage is bilateral temporal and right mid parietal region. Neurosurgical consultation was requested 04/04: pt seen during am rounds, doing well, sitting up on side of bed. mild posterior head pain from trauma. No nausea, vomiting, seizures, focal weakness. 04/05: doing well, intermittently confused, etoh withdrawals. 04/06: awake, alert, smiling and happy, requesting his morning coffee, moves all four extremities. denies headaches, nausea, vomiting, seizures. (Deja Dee) Labs, Micro, & Vital Signs Results Date Time Temp Pulse Resp B/P Pulse Ox O2 Delivery O2 Flow Rate FiO2 04/06/17 08:02 90 Nasal Cannula 5.00 04/06/17 08:00 98.1 86 24 108/58 88 04/06/17 07:00 81 Nasal Cannula 5.00 04/06/17 07:00 87 04/06/17 04:00 97.8 87 24 97/57 94 04/06/17 03:41 90 Nasal Cannula 5.00 04/06/17 00:00 98.4 106 24 122/66 90 04/05/17 23:47 90 Nasal Cannula 4.00 04/05/17 23:00 128 04/05/17 20:00 99.0 116 24 148/74 94 04/05/17 20:00 116 04/05/17 19:22 107 04/05/17 19:09 95 Nasal Cannula 5.00 04/05/17 19:00 94 Nasal Cannula 5.00 04/05/17 16:00 98.7 99 29 124/86 94 04/05/17 15:00 115 04/05/17 12:00 97.4 98 32 127/89 93 04/06/17 07:00 Intake Total 2124 ml Output Total 1700 ml Balance 424 ml Constitutional Vital Signs Date Time Temp Pulse Resp B/P Pulse Ox O2 Delivery O2 Flow Rate FiO2 04/06/17 08:02 90 Nasal Cannula 5.00 04/06/17 08:00 98.1 86 24 108/58 88 04/06/17 07:00 81 Nasal Cannula 5.00 04/06/17 07:00 87 04/06/17 04:00 97.8 87 24 97/57 94 04/06/17 03:41 90 Nasal Cannula 5.00 04/06/17 00:00 98.4 106 24 122/66 90 04/05/17 23:47 90 Nasal Cannula 4.00 04/05/17 23:00 128 04/05/17 20:00 99.0 116 24 148/74 94 04/05/17 20:00 116 04/05/17 19:22 107 04/05/17 19:09 95 Nasal Cannula 5.00 04/05/17 19:00 94 Nasal Cannula 5.00 04/05/17 16:00 98.7 99 29 124/86 94 04/05/17 15:00 115 04/05/17 12:00 97.4 98 32 127/89 93 04/06/17 07:00 Intake Total 2124 ml Output Total 1700 ml Balance 424 ml (Deja Dee) Review of Systems/Exam Exam Mr. Valentine is alert, awake and oriented to place and person. Speech is fluent. GCS 15 Cranial nerve examination: pupils to be equal, round and reactive to light. Extra-ocular movements are intact. Facial motor and sensory function are normal and symmetrical Neck is soft and supple Muscle strength is normal in all muscle groups of both upper and lower extremities. Sensory examination is intact to light touch and pin prick in both the upper and lower extremities. bilateral plantar flexion response. Cerebellar examination is unremarkable (Deja Dee) Medications Current Medications Current Medications Medications (Trade) Dose Ordered Sig/Sameera Route PRN Reason Start Time Stop Time Status Last Admin Dose Admin Sodium Chloride (NS Flush) 2 ml UNSCH PRN IV FLUSH FLUSH AFTER USING IV ACCESS 04/03/17 01:15 Sodium Chloride (NS Flush) 2 ml BID .XX 04/03/17 09:00 04/06/17 09:00 Acetaminophen (Tylenol) 650 mg Q6H PRN PO PAIN 1-5 AND/OR FEVER >101F 04/03/17 01:15 04/04/17 08:30 Morphine Sulfate (Morphine Inj) 2 mg Q2H PRN IV PAIN SCALE 6 TO 10 04/03/17 01:15 04/04/17 08:31 Ondansetron HCl (Zofran Inj) 4 mg Q6H PRN IV NAUSEA OR VOMITING 04/03/17 01:15 Miscellaneous Information 1 Q361D XX 04/03/17 01:15 Chlorhexidine Gluconate (Chlorhexidine 2% Cloth) 3 pack Taper DAILY@04 TOP 04/03/17 04:00 03/30/18 03:59 04/05/17 22:48 Chlorhexidine Gluconate (Chlorhexidine 2% Cloth) 3 pack UNSCH PRN TOP HYGIENIC CARE 04/03/17 01:15 Senna/Docusate Sodium (Tess-Colace) 1 tab BID PO 04/03/17 09:00 04/05/17 19:34 Magnesium Hydroxide (Milk Of Magnesia Liq) 30 ml Q12H PRN PO MILD - MODERATE CONSTIPATION 04/03/17 01:15 Sennosides (Senokot) 17.2 mg Q12H PRN PO MODERATE - SEVERE CONSTIPATION 04/03/17 01:15 Bisacodyl (Dulcolax Supp) 10 mg DAILY PRN RECTAL SEVERE CONSITIPATION 04/03/17 01:15 Lactulose (Lactulose Liq) 30 ml DAILY PRN PO SEVERE CONSITIPATION 04/03/17 01:15 Metformin HCl (Glucophage) 500 mg BIDPC PO 04/03/17 12:30 Hold 04/04/17 18:30 Folic Acid (Folate) 1 mg DAILY PO 04/04/17 09:00 04/09/17 08:59 04/06/17 09:12 Thiamine HCl (Vitamin B1) 100 mg DAILY PO 04/04/17 09:00 04/06/17 09:12 Multivitamins/ Minerals Therapeutic (Theragran M Tab) 1 tab DAILY PO 04/04/17 09:00 04/09/17 08:59 04/06/17 09:12 Flumazenil (Romazicon Inj) 0.2 mg Q1M PRN IV PUSH SEE LABEL COMMENTS 04/04/17 08:15 Lorazepam (Ativan) 1 mg Q4H PRN PO CIWA 8 - 10 04/04/17 08:15 04/05/17 22:10 Lorazepam (Ativan Inj) 1 mg Q4H PRN IV PUSH CIWA 8 - 10 04/04/17 08:15 04/05/17 08:00 Lorazepam (Ativan) 2 mg Q2H PRN PO CIWA 11-14 04/04/17 08:15 Lorazepam (Ativan Inj) 2 mg Q2H PRN IV PUSH CIWA 11-14 04/04/17 08:15 04/04/17 14:45 Lorazepam (Ativan Inj) 2 mg Q1H PRN IV PUSH CIWA 15-20 04/04/17 08:15 Lorazepam (Ativan Inj) 2 mg Q15M PRN IV PUSH CIWA > 20 04/04/17 08:15 04/04/17 15:51 Haloperidol Lactate 2 mg 2 mg Q15M PRN IM SEE LABEL COMMENTS 04/04/17 08:15 Levofloxacin/ Dextrose (Levaquin 500 Mg Premix Inj) 100 ml @ 100 mls/hr Q24H IV 04/05/17 13:00 04/12/17 12:59 04/05/17 13:13 Methylprednisolone Sodium Succinate (SoluMEDROL INJ) 40 mg Q8HR IV PUSH 04/05/17 14:00 04/06/17 05:33 Chlordiazepoxide (Librium) 25 mg Q8H PO 04/06/17 10:00 04/06/17 09:12 Nicotine (Habitrol 21 Mg Patch.24 Hr) 1 patch DAILY T-DERMAL 04/06/17 09:30 Miscellaneous Information 1 HS T-DERMAL 04/06/17 21:00 Insulin Aspart (NovoLOG SUPPLEMENTAL SCALE) 1 ACHS SQ 04/06/17 11:15 Dextrose (D50w (Vial) Inj) 25 ml UNSCH PRN IV HYPOGLYCEMIA-SEE COMMENTS 04/06/17 11:15 Glucagon (Glucagon Inj) 1 mg UNSCH PRN IM/SQ HYPOGLYCEMIA-SEE COMMENTS 04/06/17 11:15 (Deja Dee) Medical Decision Making MDM Remarks 66 y/o male with mild TBI, traumatic right SAH, intraparenchymal hemorrhage without mass effect or midline shift, f/u CT Head 04/04 with very slight increase in bleed but otherwise stable remains neurologically stable (Deja Dee) Plan Plan Remarks remains neurologically stable, nonfocal examination cont nonoperative management cont supportive care for etoh withdrawal cont neuro checks, cont therapy will follow periodically (Deja Dee) Attending Statement Neuro. Neuro checks in a serial fashion. Respiratory. pulmonary toilette, nasotracheal suction, and breathing treatments with nebulizers. PT and OT eval Nutrition. NPO Renal. monitor closely urine output, BUN and creatinine Endocrine. Monitor serial Acu checks and SSI for tight control ID monitor for signs of infection Protonix for stress ulcer prophylaxis Ron hose and SCD's for DVT prophylaxis The exam, history, and the medical decision-making described in the above note were completed with the assistance of the mid-level provider. I reviewed and agree with the findings presented. I attest that I had a [id number] encounter with the patient on the same day, and personally performed and documented my assessment and findings in the medical record. (Rasheed Duque MD) Deja Dee Apr 06, 2017 11:27 Rasheed Duque MD Apr 07, 2017 08:46
--- NOTE | 2017-04-06 11:34 | HHI.PR ---
Subjective Remarks No events overnight. Patient is on 2L oxygen Afebrile. Objective Vital Signs Vital Signs Date Time Temp Pulse Resp B/P Pulse Ox O2 Delivery O2 Flow Rate FiO2 04/06/17 08:02 90 Nasal Cannula 5.00 04/06/17 08:00 98.1 86 24 108/58 88 04/06/17 07:00 81 Nasal Cannula 5.00 04/06/17 07:00 87 04/06/17 04:00 97.8 87 24 97/57 94 04/06/17 03:41 90 Nasal Cannula 5.00 04/06/17 00:00 98.4 106 24 122/66 90 04/05/17 23:47 90 Nasal Cannula 4.00 04/05/17 23:00 128 04/05/17 20:00 99.0 116 24 148/74 94 04/05/17 20:00 116 04/05/17 19:22 107 04/05/17 19:09 95 Nasal Cannula 5.00 04/05/17 19:00 94 Nasal Cannula 5.00 04/05/17 16:00 98.7 99 29 124/86 94 04/05/17 15:00 115 04/05/17 12:00 97.4 98 32 127/89 93 I/O 04/05/17 04/05/17 04/05/17 04/06/17 04/06/17 04/06/17 07:00 15:00 23:00 07:00 15:00 23:00 Intake Total 120 ml 804 ml 1080 ml 240 ml Output Total 700 ml 1050 ml 650 ml Balance -580 ml -246 ml 430 ml 240 ml Intake Oral 120 ml 720 ml 1080 ml 240 ml IV Total 84 ml Output Urine Total 700 ml 1050 ml 650 ml Stool Total 0 ml Result Diagram: 04/06/17 0350 04/06/17 0350 Other Results Last Impressions CT Angiography 04/05/17 0000 Signed Impressions: Service Date/Time: Wednesday, April 05, 2017 08:13 - CONCLUSION: 1. No evidence for pulmonary embolism. 2. Severe emphysema, patchy airspace disease and basilar dependent atelectatic changes. 3. Nodular focus in the superior segment right lower lobe as above. 4. [address] chest recommended to assess for resolution of these findings. Jose Hansen MD Liver Ultrasound 04/04/17 0811 Signed Impressions: Service Date/Time: Tuesday, April 04, 2017 15:10 - CONCLUSION: No focal abnormalities Rakesh aGndhi MD Head CT 04/04/17 0000 Signed Impressions: Service Date/Time: Tuesday, April 04, 2017 09:42 - CONCLUSION: Slight increase in prominence of left temporal hemorrhage. Rakesh Gandhi MD Chest X-Ray 04/02/17 2324 Signed Impressions: Service Date/Time: Sunday, April 02, 2017 23:55 - CONCLUSION: No acute findings. No evidence of pneumothorax. Anuel Brennan MD Cervical Spine CT 04/02/17 0000 Signed Impressions: Service Date/Time: March 00:17 - CONCLUSION: Discogenic degenerative changes at C5-6 without neural foraminal narrowing. No evidence of acute fracture or spondylolisthesis. Anuel Brennan MD Objective Remarks GENERAL: Patient is 66 yo sitting up in bed in NAD SKIN: Warm and dry. HEAD: Normocephalic. EYES: No scleral icterus. No injection or drainage. NECK: Supple, trachea midline. No JVD or lymphadenopathy. CARDIOVASCULAR: Regular rate and rhythm without murmurs, gallops, or rubs. RESPIRATORY: Breath sounds equal bilaterally. No accessory muscle use. GASTROINTESTINAL: Abdomen soft, non-tender, nondistended. MUSCULOSKELETAL: No cyanosis, or edema. Neuro: Awake and alert. A/P Assessment and Plan 1. Acute respiratory insufficiency. 2. COPD exacerbation. 3. Atelectasis. 4. A 1.4 x 1.4 cm nodular foci in the superior segment of the right lower lobe. 5. Active tobacco and EtOH abuse. 6. Thrombocytopenia. 7. Subarachnoid hemorrhage. Plan Continue with oxygen and maintain sats >92%. Bronchodilators, Solu-Medrol 40 mg IV 8 BIPAP p.r.n. for respiratory distress. Incentive spirometry care q. 1 hour while awake. Continue with abx(Levaquin) and monitor for signs of infections(fever and WBC). Will need a repeat CT scan of the chest in 3 months to follow up on the stability of the nodular foci. PFT as an outpatient to assess the severity of his obstructive lung disease. Continue treatment plan Myke Polo MD Apr 06, 2017 11:34
[2017-04-06] MEDS: LEVOFLOXACIN 500 MG PREMIX INJ 100 ML IV SCH (12:09)
[2017-04-06] MEDS: REMOVE OLD NICODERM (NICOTINE) PATCH T-DERMAL SCH (21:00)
[2017-04-07] VITALS (10 sets, daily range): BP systolic 89–133; BP diastolic 52–85; PULSE 65–100; RESP 18–20; TEMP 95.8–98.7; O2SAT 90–96
[2017-04-07] MEDS: CHLORHEXIDINE GLUCONATE 2 % 1 PACK (2 CLOTHS) TOP SCH ×2 (01:03→20:33)
[2017-04-07] MEDS: chlordiazePOXIDE 25 MG CAP PO SCH ×3 (01:03→20:27)
[2017-04-07] MEDS: MORPHINE SULFATE 4 MG/ML INJ IV PRN ×4 (01:17→20:40)
[2017-04-07] MEDS: RESP: ALBUTEROL 2.5 MG/IPRATROPIUM 0.5 MG NEB (SCH) NEB ×4 (03:58→22:00)
[2017-04-07] MEDS: methylPREDNISolone SOD SUCC 40 MG/1 ML VIAL IV PUSH SCH ×2 (06:08→13:03)
[2017-04-07] MEDS: INSULIN ASPART SUPPLEMENTAL SCALE SQ SCH ×4 (06:11→20:28)
[2017-04-07 08:41] LABS: BASOPHIL % 0.2 % (0.0-2.0); HEMATOCRIT 37.8 % (39.0-51.0); LYMPH % 8.3 % (9.0-44.0); LYMPHOCYTE # 0.5 TH/MM3 (1.0-4.8); MEAN CELL VOLUME 92.3 FL (80.0-100.0); MEAN CORPUSCULAR HEMOGLOBIN 30.4 PG (27.0-34.0); MEAN CORPUSCULAR HGB CONC 32.9 % (32.0-36.0); MONO % 6.3 % (0.0-8.0); NEUT % 85.2 % (16.0-70.0); PLATELET COUNT 70 TH/MM3 (150-450); RED BLOOD COUNT 4.09 MIL/MM3 (4.50-5.90); RED CELL DISTRIBUTION WIDTH 14.8 % (11.6-17.2); WHITE BLOOD COUNT 5.9 TH/MM3 (4.0-11.0)
[2017-04-07 08:46] LABS: HEMO FLAGS AUTO DIFF
[2017-04-07] MEDS: DOCUSATE SODIUM 50 MG/SENNA 8.6 MG TAB PO SCH ×2 (09:00→20:28)
[2017-04-07] MEDS: NICOTINE 21 MG/24 HR PATCH T-DERMAL SCH (09:00)
[2017-04-07 09:21] LABS: PLATELET ESTIMATE SMEAR LOW (NORMAL); PLATELET MORPHOLOGY NORMAL (NORMAL); SCAN/DIFF AUTO DIFF CONFIRMED
[2017-04-07 09:49] LABS: BICARBONATE 34.7 MEQ/L (21.0-32.0); MAGNESIUM 2.3 MG/DL (1.5-2.5)
[2017-04-07] MEDS: FOLIC ACID 1 MG TAB PO SCH (10:46)
[2017-04-07] MEDS: THIAMINE HCL 100 MG TAB PO SCH (10:46)
[2017-04-07] MEDS: MULTIVITAMINS/MINERALS THERAPEUTIC TAB PO SCH (10:46)
[2017-04-07] MEDS: SODIUM CHLORIDE 0.9% FLUSH 10 ML FLUSH SCH ×2 (10:50→20:28)
[2017-04-07] MEDS: metFORMIN HCL 500 MG TAB PO SCH (10:58)
[2017-04-07] MEDS: LEVOFLOXACIN 500 MG PREMIX INJ 100 ML IV SCH (13:02)
[2017-04-07] MEDS: LACTIC ACID (AMMONIUM LACTATE) 12% LOTION 225 GM BTL TOPICAL SCH ×2 (14:15→20:33)
[2017-04-07] MEDS ORDERED: SODIUM CHLOR 0.9% 250 ML INJ 250 ML IV ONE (14:15)
[2017-04-07] MEDS ORDERED: GNP100TA3 PO (14:22)
[2017-04-07] MEDS ORDERED: LEVA750T9 PO (14:22)
[2017-04-07] MEDS ORDERED: CHLO25CA9 PO (14:22)
[2017-04-07] MEDS ORDERED: PRED20 PO (14:22)
--- NOTE | 2017-04-07 14:23 | HHI.DCPOC ---
Discharge Care Plan Diagnosis: (1) Subarachnoid hemorrhage (2) Alcohol intoxication Your Health Problems Are: Difficulty with ADL Exercise Tolerance Goals to Promote Your Health * To prevent worsening of your condition and complications * To maintain your health at the optimal level Directions to Meet Your Goals Take your medications as prescribed Follow your dietary instruction Follow activity as directed Keep your appointments as scheduled Take your immunizations and boosters as scheduled If your symptoms worsen call your PCP, if no PCP go to Urgent Care Center or Emergency Room Smoking is Dangerous to Your Health. Avoid second hand smoke Call the 24-hour hour crisis hotline for domestic abuse at Andrez Broussard MD Apr 07, 2017 14:23
--- NOTE | 2017-04-07 14:24 | HHI.FF ---
Face to Face Verification Diagnosis: (1) Alcohol intoxication Home Health Nursing Order: Medical education Diabetic education Oxygen administration education Nursing assessment with vital signs I have seen patient Nhan Valentine on 04/07/17. My clinical findings support the need for the requested home health care services because: Patient has SOB I certify that my clinical findings support that this patient is homebound because: Hx COPD- exertion dyspnea/weakness Andrez Broussard MD Apr 07, 2017 14:24
[2017-04-07] MEDS ORDERED: INSULIN HUMAN NPH 1,000 UNITS/10 ML VIAL SQ ONE (14:30)
--- NOTE | 2017-04-07 14:31 | HHI.PR ---
Subjective Remarks Follow-up COPD exacerbation and acute respiratory failure. Consulted by critical care medicine for transfer care and medical management. Chart reviewed. States he is doing okay denies shortness of breath. Oxygen down to 3 L. Reports of increased wax production left ear denies any pain, fever and chills. Discussed with RN Objective Vitals Vital Signs Date Time Temp Pulse Resp B/P Pulse Ox O2 Delivery O2 Flow Rate FiO2 04/07/17 12:30 97.0 89 18 119/67 93 04/07/17 09:53 96 Nasal Cannula 3.00 04/07/17 09:14 95.8 65 18 89/52 94 04/07/17 08:00 96 Nasal Cannula 3.00 04/07/17 04:00 96.3 83 18 128/64 92 04/07/17 00:00 98.7 88 18 117/64 90 04/06/17 20:00 97.4 93 18 117/66 96 04/06/17 19:26 95 Nasal Cannula 4.00 04/06/17 18:17 Nasal Cannula 3.00 04/06/17 17:11 95.7 93 20 128/69 93 04/06/17 16:00 97.6 89 23 122/58 92 04/06/17 15:00 94 I/O 04/06/17 04/06/17 04/06/17 04/07/17 04/07/17 04/07/17 07:00 15:00 23:00 07:00 15:00 23:00 Intake Total 240 ml 1274 ml Output Total 1750 ml Balance 240 ml -476 ml Intake Oral 240 ml 1200 ml IV Total 74 ml Output Urine Total 1750 ml # Voids 2 # Bowel Movements 2 Result Diagram: 04/07/17 0742 04/07/17 [address] Angiography 04/05/17 0000 Signed Impressions: Service Date/Time: Wednesday, April 05, 2017 08:13 - CONCLUSION: 1. No evidence for pulmonary embolism. 2. Severe emphysema, patchy airspace disease and basilar dependent atelectatic changes. 3. Nodular focus in the superior segment right lower lobe as above. 4. [address] chest recommended to assess for resolution of these findings. Jose Hansen MD Liver Ultrasound 04/04/17 0811 Signed Impressions: Service Date/Time: Tuesday, April 04, 2017 15:10 - CONCLUSION: No focal abnormalities Rakesh Gandhi MD Head CT 04/04/17 0000 Signed Impressions: Service Date/Time: Tuesday, April 04, 2017 09:42 - CONCLUSION: Slight increase in prominence of left temporal hemorrhage. Rakesh Gandhi MD Chest X-Ray 04/02/17 2324 Signed Impressions: Service Date/Time: Sunday, April 02, 2017 23:55 - CONCLUSION: No acute findings. No evidence of pneumothorax. Anuel Brennan MD Cervical Spine CT 04/02/17 0000 Signed Impressions: Service Date/Time: March 00:17 - CONCLUSION: Discogenic degenerative changes at C5-6 without neural foraminal narrowing. No evidence of acute fracture or spondylolisthesis. Anuel Brennan MD Objective Remarks GENERAL: Well-nourished, well-developed patient. Oriented 3. No hallucinations on 3 L SKIN: Left pinna with xerosis. Tympanic membrane intact HEAD: Normocephalic. EYES: No scleral icterus. No injection or drainage. NECK: Supple, trachea midline. No JVD or lymphadenopathy. CARDIOVASCULAR: Regular rate and rhythm without murmurs, gallops, or rubs. RESPIRATORY: Breath sounds equal bilaterally. No accessory muscle use. GASTROINTESTINAL: Abdomen soft, non-tender, nondistended. MUSCULOSKELETAL: No cyanosis, or edema. BACK: Nontender without obvious deformity. No CVA tenderness. EXTREMITIES: No clubbing cyanosis or edema. No tremors Procedures none A/P Problem List: (1) Subarachnoid hemorrhage ICD Code: I60.9 Status: Acute (2) Alcohol intoxication ICD Code: F10.929 Status: Acute Assessment and Plan Subarachnoid hemorrhage. Stable - Traumatic - Neuro checks per unit protocol - NS ff Thrombocytopenia - Most likely due to chronic alcohol use - Transfuse platelets to keep platelet count close to 90 due to ICH. We will transfuse again today - Ultrasound did not show liver and spleen abnormality. Diabetes mellitus. Uncontrolled secondary to steroids. Check A1c. NPH subcutaneous 10 units 1. -Continue metformin - Insulin sliding scale Alcohol intoxication. Improved - Monitor for withdrawal. Librium taper - Thiamine folate multivitamin - Ativan when necessary Acute respiratory failure secondary to COPD exacerbation. Improving. Discontinue IV Solu-Medrol and Levaquin switch to by mouth and wean oxygen. Increase activity as tolerated. Oxygen walk test Right lung nodule. Repeat CT in 3 months DVT GI prophylaxis - Teds SCDs - No pharmacological DVT prophylaxis due to acute ICH and thrombocytopenia - Pepcid Discharge Planning Possible discharge in 1-2 days with home health care visiting nurse Problem Qualifiers (1) Alcohol intoxication: Qualified Code: F10.929 - Alcohol intoxication, with unspecified complication Andrez Broussard MD Apr 07, 2017 14:31
[2017-04-07 17:40] LABS: HEMOGLOBIN A1a 0.9 %; HEMOGLOBIN A1b 0.8 %; HEMOGLOBIN Ao 83.9 %; HEMOGLOBIN P3 4.4 %
--- NOTE | 2017-04-07 20:26 | HHI.PR ---
Subjective Remarks No events overnight. Patient is on 2L oxygen Afebrile. no SOb or CP Objective Vital Signs Vital Signs Date Time Temp Pulse Resp B/P Pulse Ox O2 Delivery O2 Flow Rate FiO2 04/07/17 17:17 97.0 100 18 123/68 95 04/07/17 15:06 89 04/07/17 12:30 97.0 89 18 119/67 93 04/07/17 09:53 96 Nasal Cannula 3.00 04/07/17 09:14 95.8 65 18 89/52 94 04/07/17 08:00 96 Nasal Cannula 3.00 04/07/17 04:00 96.3 83 18 128/64 92 04/07/17 00:00 98.7 88 18 117/64 90 I/O 04/06/17 04/06/17 04/06/17 04/07/17 04/07/17 04/07/17 07:00 15:00 23:00 07:00 15:00 23:00 Intake Total 240 ml 1274 ml Output Total 1750 ml Balance 240 ml -476 ml Intake Oral 240 ml 1200 ml IV Total 74 ml Output Urine Total 1750 ml # Voids 2 # Bowel Movements 2 Result Diagram: 04/07/17 0742 04/07/17 0742 Objective Remarks GENERAL: Patient is 66 yo sitting up in bed in NAD SKIN: Warm and dry. HEAD: Normocephalic. EYES: No scleral icterus. No injection or drainage. NECK: Supple, trachea midline. No JVD or lymphadenopathy. CARDIOVASCULAR: Regular rate and rhythm without murmurs, gallops, or rubs. RESPIRATORY: Breath sounds equal bilaterally. No accessory muscle use. GASTROINTESTINAL: Abdomen soft, non-tender, nondistended. MUSCULOSKELETAL: No cyanosis, or edema. Neuro: Awake and alert. A/P Assessment and Plan 1. Acute respiratory insufficiency. 2. COPD exacerbation. 3. Atelectasis. 4. A 1.4 x 1.4 cm nodular foci in the superior segment of the right lower lobe. 5. Active tobacco and EtOH abuse. 6. Thrombocytopenia. 7. Subarachnoid hemorrhage. Plan Continue with oxygen and maintain sats >92%. Bronchodilators, Solu-Medrol 40 mg IV 8 Incentive spirometry care q. 1 hour while awake. Continue with abx(Levaquin) and monitor for signs of infections(fever and WBC). Will need a repeat CT scan of the chest in 3 months to follow up on the stability of the nodular foci. PFT as an outpatient to assess the severity of his obstructive lung disease. Wean 02 to keep sat >90% Antonio Altman MD Apr 07, 2017 20:26
[2017-04-07] MEDS: REMOVE OLD NICODERM (NICOTINE) PATCH T-DERMAL SCH (20:33)
[2017-04-08] VITALS (8 sets, daily range): BP systolic 91–116; BP diastolic 53–72; PULSE 70–90; RESP 18–21; TEMP 95.3–98.6; O2SAT 83–98
[2017-04-08] MEDS: RESP: ALBUTEROL 2.5 MG/IPRATROPIUM 0.5 MG NEB (SCH) NEB ×4 (03:08→20:32)
[2017-04-08] MEDS: INSULIN ASPART SUPPLEMENTAL SCALE SQ SCH ×4 (05:13→21:00)
[2017-04-08 07:29] LABS: AUTOMATED NEUTROPHIL # 4.5 TH/MM3 (1.8-7.7); BASOPHIL % 0.4 % (0.0-2.0); EOSINOPHIL % 0.2 % (0.0-4.0); HEMATOCRIT 39.7 % (39.0-51.0); HEMO FLAGS DIFF FINAL; LYMPH % 22.1 % (9.0-44.0); LYMPHOCYTE # 1.4 TH/MM3 (1.0-4.8); MEAN CELL VOLUME 92.2 FL (80.0-100.0); MEAN CORPUSCULAR HEMOGLOBIN 31.7 PG (27.0-34.0); MEAN CORPUSCULAR HGB CONC 34.4 % (32.0-36.0); MONO % 8.3 % (0.0-8.0); PLATELET COUNT 102 TH/MM3 (150-450); RED BLOOD COUNT 4.31 MIL/MM3 (4.50-5.90); WHITE BLOOD COUNT 6.5 TH/MM3 (4.0-11.0)
--- NOTE | 2017-04-08 08:51 | HHI.PR ---
Subjective Remarks Follow-up COPD exacerbation. He denies shortness of breath even though he has audible wheezing. States he always has wheezes. Discussed with RN and pulmonary. He agrees with rehabilitation Objective Vitals Vital Signs Date Time Temp Pulse Resp B/P Pulse Ox O2 Delivery O2 Flow Rate FiO2 04/08/17 07:57 97.7 86 18 103/72 95 04/08/17 07:16 83 21 04/08/17 06:10 3.00 04/08/17 05:30 96.0 70 21 104/57 93 04/08/17 01:26 95.3 90 21 116/69 92 04/07/17 22:15 96.4 88 20 133/74 95 04/07/17 22:01 97.2 86 20 122/78 95 04/07/17 20:39 96.5 92 20 117/85 94 04/07/17 17:17 97.0 100 18 123/68 95 04/07/17 15:06 89 04/07/17 12:30 97.0 89 18 119/67 93 04/07/17 09:53 96 Nasal Cannula 3.00 04/07/17 09:14 95.8 65 18 89/52 94 I/O 04/07/17 04/07/17 04/07/17 04/08/17 04/08/17 04/08/17 07:00 15:00 23:00 07:00 15:00 23:00 Output Total 0 ml Balance 0 ml Output Urine Total 0 ml # Voids 2 # Bowel Movements 2 Result Diagram: 04/08/17 0707 04/07/17 [address] Angiography 04/05/17 0000 Signed Impressions: Service Date/Time: Wednesday, April 05, 2017 08:13 - CONCLUSION: 1. No evidence for pulmonary embolism. 2. Severe emphysema, patchy airspace disease and basilar dependent atelectatic changes. 3. Nodular focus in the superior segment right lower lobe as above. 4. [address] chest recommended to assess for resolution of these findings. Jose Hansen MD Liver Ultrasound 04/04/17 0811 Signed Impressions: Service Date/Time: Tuesday, April 04, 2017 15:10 - CONCLUSION: No focal abnormalities Rakesh Gandhi MD Head CT 04/04/17 0000 Signed Impressions: Service Date/Time: Tuesday, April 04, 2017 09:42 - CONCLUSION: Slight increase in prominence of left temporal hemorrhage. Rakesh Gandhi MD Chest X-Ray 04/02/17 2324 Signed Impressions: Service Date/Time: Sunday, April 02, 2017 23:55 - CONCLUSION: No acute findings. No evidence of pneumothorax. Anuel Brennan MD Cervical Spine CT 04/02/17 0000 Signed Impressions: Service Date/Time: March 00:17 - CONCLUSION: Discogenic degenerative changes at C5-6 without neural foraminal narrowing. No evidence of acute fracture or spondylolisthesis. Anuel Brennan MD Objective Remarks GENERAL: Well-nourished, well-developed patient. Oriented 3. No hallucinations on 2.5 L SKIN: Left pinna with xerosis. Tympanic membrane intact HEAD: Normocephalic. EYES: No scleral icterus. No injection or drainage. NECK: Supple, trachea midline. No JVD or lymphadenopathy. CARDIOVASCULAR: Regular rate and rhythm without murmurs, gallops, or rubs. RESPIRATORY: Breath sounds equal bilaterally. No accessory muscle use. Scattered expiratory wheezes GASTROINTESTINAL: Abdomen soft, non-tender, nondistended. MUSCULOSKELETAL: No cyanosis, or edema. BACK: Nontender without obvious deformity. No CVA tenderness. EXTREMITIES: No clubbing cyanosis or edema. No tremors Procedures none A/P Problem List: (1) Subarachnoid hemorrhage ICD Code: I60.9 Status: Acute (2) Alcohol intoxication ICD Code: F10.929 Status: Acute Assessment and Plan Subarachnoid hemorrhage. Stable - Traumatic - Neuro checks per unit protocol - NS ff Thrombocytopenia improved over 90,000 today - Most likely due to chronic alcohol use - Transfuse platelets to keep platelet count close to 90 due to ICH. - Ultrasound did not show liver and spleen abnormality. Diabetes mellitus. Uncontrolled secondary to steroids. A1c 6. -Continue metformin - Insulin sliding scale Alcohol intoxication. Improved - Monitor for withdrawal. Librium taper - Thiamine folate multivitamin - Ativan when necessary Acute respiratory failure secondary to COPD exacerbation. Actively wheezing but denies shortness of breath. Continue nebulizations, prednisone and Levaquin and wean oxygen. Increase activity as tolerated. Failed Oxygen walk test , he will need home oxygen Right lung nodule. Repeat CT in 3 months DVT GI prophylaxis - Teds SCDs - No pharmacological DVT prophylaxis due to acute ICH and thrombocytopenia - Pepcid Discharge Planning Discharge to rehabilitation when arranged Problem Qualifiers (1) Alcohol intoxication: Qualified Code: F10.929 - Alcohol intoxication, with unspecified complication Andrez Broussard MD Apr 08, 2017 08:51
[2017-04-08] MEDS: DOCUSATE SODIUM 50 MG/SENNA 8.6 MG TAB PO SCH ×2 (09:00→21:00)
[2017-04-08] MEDS: NICOTINE 21 MG/24 HR PATCH T-DERMAL SCH ×2 (09:00→10:15)
[2017-04-08] MEDS: SODIUM CHLORIDE 0.9% FLUSH 10 ML FLUSH SCH ×2 (09:00→21:00)
[2017-04-08] MEDS: LACTIC ACID (AMMONIUM LACTATE) 12% LOTION 225 GM BTL TOPICAL SCH ×2 (09:00→21:00)
[2017-04-08] MEDS: MULTIVITAMINS/MINERALS THERAPEUTIC TAB PO SCH (10:14)
[2017-04-08] MEDS: metFORMIN HCL 500 MG TAB PO SCH ×2 (10:14→17:06)
[2017-04-08] MEDS: chlordiazePOXIDE 25 MG CAP PO SCH ×2 (10:14→21:37)
[2017-04-08] MEDS: predniSONE 20 MG TAB PO SCH (10:14)
[2017-04-08] MEDS: THIAMINE HCL 100 MG TAB PO SCH (10:15)
[2017-04-08] MEDS: FOLIC ACID 1 MG TAB PO SCH (10:15)
[2017-04-08] MEDS: LEVOFLOXACIN 750 MG TAB PO SCH (12:54)
[2017-04-08] MEDS ORDERED: OXYGENDME NAS.CANULA (13:06)
--- NOTE | 2017-04-08 13:08 | HHI.DS ---
Discharge Summary Admission Date Apr 03, 2017 at 01:06 Discharge Date: Apr 09, 2017 Admitting Diagnosis subarachnoid hemorrhage (1) Subarachnoid hemorrhage ICD Code: I60.9 Diagnosis: Principal (2) Alcohol intoxication ICD Code: F10.929 Diagnosis: Principal Procedures none Brief History - From Admission 66-year-old male who was brought by EMS after he tripped and fell. As per EMS, patient was at a local store and was walking up the ramp, when he tripped and lost his balance and fell backwards hitting his head on the concrete floor. Reports that patient had positive loss of consciousness on scene. Reports that patient appears intoxicated. Patient with no complaints at this time, patient denies any alcohol ingestion, denies any drug ingestion. CBC/BMP: 04/08/17 0707 04/07/17 0742 Significant Findings Laboratory Tests Test 04/06/17 04/07/17 04/08/17 03:50 07:42 07:07 Red Blood Count 4.18 MIL/MM3 4.09 MIL/MM3 4.31 MIL/MM3 (4.50-5.90) (4.50-5.90) (4.50-5.90) Hemoglobin 12.9 GM/DL 12.4 GM/DL (13.0-17.0) (13.0-17.0) Hematocrit 38.5 % 37.8 % (39.0-51.0) (39.0-51.0) Platelet Count 81 TH/MM3 70 TH/MM3 102 TH/MM3 (150-450) (150-450) (150-450) Neutrophils (%) (Auto) 87.9 % 85.2 % (16.0-70.0) (16.0-70.0) Lymphocytes (%) (Auto) 6.9 % 8.3 % (9.0-44.0) (9.0-44.0) Lymphocytes # (Auto) 0.4 TH/MM3 0.5 TH/MM3 (1.0-4.8) (1.0-4.8) Platelet Estimate LOW (NORMAL) LOW (NORMAL) Sodium Level 135 MEQ/L 133 MEQ/L (136-145) (136-145) Carbon Dioxide Level 32.2 MEQ/L 34.7 MEQ/L (21.0-32.0) (21.0-32.0) Blood Urea Nitrogen 29 MG/DL (7-18) 32 MG/DL (7-18) Random Glucose 206 MG/DL 253 MG/DL (74-106) (74-106) Chloride Level 95 MEQ/L (98-107) Anion Gap 3 MEQ/L (5-15) Monocytes (%) (Auto) 8.3 % (0.0-8.0) Imaging Last Impressions CT Angiography 04/05/17 0000 Signed Impressions: Service Date/Time: Wednesday, April 05, 2017 08:13 - CONCLUSION: 1. No evidence for pulmonary embolism. 2. Severe emphysema, patchy airspace disease and basilar dependent atelectatic changes. 3. Nodular focus in the superior segment right lower lobe as above. 4. [address] chest recommended to assess for resolution of these findings. Jose Hansen MD Liver Ultrasound 04/04/17 0811 Signed Impressions: Service Date/Time: Tuesday, April 04, 2017 15:10 - CONCLUSION: No focal abnormalities Rakesh Gandhi MD Head CT 04/04/17 0000 Signed Impressions: Service Date/Time: Tuesday, April 04, 2017 09:42 - CONCLUSION: Slight increase in prominence of left temporal hemorrhage. Rakesh Gandhi MD Chest X-Ray 04/02/17 2324 Signed Impressions: Service Date/Time: Sunday, April 02, 2017 23:55 - CONCLUSION: No acute findings. No evidence of pneumothorax. Anuel Brennan MD Cervical Spine CT 04/02/17 0000 Signed Impressions: Service Date/Time: March 00:17 - CONCLUSION: Discogenic degenerative changes at C5-6 without neural foraminal narrowing. No evidence of acute fracture or spondylolisthesis. Anuel Brennan MD PE at Discharge GENERAL: Well-nourished, well-developed patient. Oriented 3. No hallucinations on 2.5 L SKIN: Left pinna with xerosis. Tympanic membrane intact HEAD: Normocephalic. EYES: No scleral icterus. No injection or drainage. NECK: Supple, trachea midline. No JVD or lymphadenopathy. CARDIOVASCULAR: Regular rate and rhythm without murmurs, gallops, or rubs. RESPIRATORY: Breath sounds equal bilaterally. No accessory muscle use. Scattered expiratory wheezes GASTROINTESTINAL: Abdomen soft, non-tender, nondistended. MUSCULOSKELETAL: No cyanosis, or edema. BACK: Nontender without obvious deformity. No CVA tenderness. EXTREMITIES: No clubbing cyanosis or edema. No tremors Hospital Course Subarachnoid hemorrhage. Stable - Traumatic - Neuro checks per unit protocol - NS ff Thrombocytopenia improved over 90,000 - Most likely due to chronic alcohol use - Transfuse platelets to keep platelet count close to 90 due to ICH. - Ultrasound did not show liver and spleen abnormality. Diabetes mellitus. Uncontrolled secondary to steroids. A1c 6. -Continue metformin - Insulin sliding scale Alcohol intoxication. Improved - Monitor for withdrawal. Librium taper - Thiamine folate multivitamin - Ativan when necessary Acute respiratory failure secondary to COPD exacerbation. Improving no wheezes denies shortness of breath. Continue nebulizations, prednisone and Levaquin and wean oxygen. Increase activity as tolerated. Failed Oxygen walk test , he will need home oxygen Right lung nodule. Repeat CT in 3 months DVT GI prophylaxis - Teds SCDs - No pharmacological DVT prophylaxis due to acute ICH and thrombocytopenia - Pepcid Pt Condition on Discharge: Stable Discharge Disposition: Discharge to SNF Discharge Time: > 30 minutes Discharge Instructions DIET: Follow Instructions for: Heart Healthy Diet, Diabetic Diet Activities you can perform: Regular-No Restrictions Activities to Avoid: Driving Follow up Referrals: PCP Follow-up - 2-3 Days Pulmonology - 1 Week New Orders: CT THORAX W/O CONTRAST (CHEST) - 3 Months New Medications: Oxygen (O2) (Oxygen (O2)) Device 2 LITER LIZA.CANULA CONTINUOUS Oxygen Concentrator Portable Gaseous 2 L/min via Nasal Canula Continuous For 99 months Prevent Hypoxemia #2 CYLINDER Chlordiazepoxide HCl (Chlordiazepoxide HCl) 25 Mg Capsule 25 MG PO BID Take 1 pill twice a day for 2 days then 1 pill daily for 3 days. Do not combine with alcohol. Alcohol Detox #7 MG Levofloxacin (Levaquin) 750 Mg Tablet 750 MG PO DAILY Infection #2 MG Prednisone (Prednisone) 20 Mg Tab 40 MG PO DAILY Control Inflammation #2 TAB Thiamine HCl (Gnp Vitamin B-1) 100 Mg Tab 100 MG PO DAILY Alcohol Detox #30 TAB Continued Medications: Metformin ER (Glucophage XR) 500 Mg Genet 500 MG PO BID With evening meal Blood Sugar Management #30 Ref 0 TAB Additional Information I spent 35 minutes [id number] with the patient or on the kessler discussing the patient's disposition, prognosis, and plan of care with patient's caregivers. Over half the time spent was devoted to counseling the patient regarding placement in coordinating care with caregivers and case management. Andrez Broussard MD Apr 08, 2017 13:08
--- NOTE | 2017-04-08 15:53 | HHI.PR ---
Subjective Remarks No events overnight. Patient is on 2L oxygen Afebrile. no SOB or CP Has wheezing " I have wheezing all the time" Objective Vital Signs Vital Signs Date Time Temp Pulse Resp B/P Pulse Ox O2 Delivery O2 Flow Rate FiO2 04/08/17 12:00 97.5 79 18 112/71 96 04/08/17 07:57 97.7 86 18 103/72 95 04/08/17 07:16 83 21 04/08/17 06:10 3.00 04/08/17 05:30 96.0 70 21 104/57 93 04/08/17 01:26 95.3 90 21 116/69 92 04/07/17 22:15 96.4 88 20 133/74 95 04/07/17 22:01 97.2 86 20 122/78 95 04/07/17 20:39 96.5 92 20 117/85 94 04/07/17 17:17 97.0 100 18 123/68 95 I/O 04/07/17 04/07/17 04/07/17 04/08/17 04/08/17 04/08/17 07:00 15:00 23:00 07:00 15:00 23:00 Output Total 0 ml Balance 0 ml Output Urine Total 0 ml # Voids 2 # Bowel Movements 2 Result Diagram: 04/08/17 0707 04/07/17 0742 Objective Remarks GENERAL: Patient is 66 yo sitting up in bed in NAD SKIN: Warm and dry. HEAD: Normocephalic. EYES: No scleral icterus. No injection or drainage. NECK: Supple, trachea midline. No JVD or lymphadenopathy. CARDIOVASCULAR: Regular rate and rhythm without murmurs, gallops, or rubs. RESPIRATORY: Breath sounds equal bilaterally. No accessory muscle use. GASTROINTESTINAL: Abdomen soft, non-tender, nondistended. MUSCULOSKELETAL: No cyanosis, or edema. Neuro: Awake and alert. A/P Assessment and Plan 1. Acute respiratory insufficiency. 2. COPD exacerbation. 3. Atelectasis. 4. A 1.4 x 1.4 cm nodular foci in the superior segment of the right lower lobe. 5. Active tobacco and EtOH abuse. 6. Thrombocytopenia. 7. Subarachnoid hemorrhage. Plan Continue with oxygen and maintain sats >92%. Bronchodilators, Incentive spirometry care q. 1 hour while awake. Continue with abx(Levaquin) and monitor for signs of infections(fever and WBC). Will need a repeat CT scan of the chest in 3 months to follow up on the stability of the nodular foci. PFT as an outpatient to assess the severity of his obstructive lung disease. Wean 02 to keep sat >90% cont Solumedrol Antonio Altman MD Apr 08, 2017 15:53
[2017-04-08] MEDS: REMOVE OLD NICODERM (NICOTINE) PATCH T-DERMAL SCH (21:00)
[2017-04-08] MEDS: MORPHINE SULFATE 4 MG/ML INJ IV PRN (21:48)
[2017-04-09] VITALS (8 sets, daily range): BP systolic 90–139; BP diastolic 52–65; PULSE 75–93; RESP 16–22; TEMP 98.2–98.8; O2SAT 86–95
[2017-04-09] MEDS: CHLORHEXIDINE GLUCONATE 2 % 1 PACK (2 CLOTHS) TOP SCH (04:00)
[2017-04-09] MEDS: RESP: ALBUTEROL 2.5 MG/IPRATROPIUM 0.5 MG NEB (SCH) NEB ×2 (04:39→10:00)
[2017-04-09] MEDS: INSULIN ASPART SUPPLEMENTAL SCALE SQ SCH ×3 (06:32→16:00)
--- NOTE | 2017-04-09 08:23 | HHI.PR ---
Subjective Remarks Follow-up COPD exacerbation. Discharge held yesterday pending home health care versus rehabilitation arrangements. Today he feels better denies wheezing and shortness of breath. He does not want to go to rehabilitation. Discussed with case management and RN Objective Vitals Vital Signs Date Time Temp Pulse Resp B/P Pulse Ox O2 Delivery O2 Flow Rate FiO2 04/09/17 04:39 91 Nasal Cannula 3.00 04/09/17 04:30 98.8 80 22 101/65 95 04/08/17 21:50 3.00 04/08/17 21:00 98.0 88 20 99/60 97 04/08/17 20:33 98 Nasal Cannula 3.00 04/08/17 16:00 98.6 84 19 91/53 91 04/08/17 12:00 97.5 79 18 112/71 96 I/O 04/08/17 04/08/17 04/08/17 04/09/17 04/09/17 04/09/17 07:00 15:00 23:00 07:00 15:00 23:00 Intake Total 780 ml 1000 ml Output Total 0 ml Balance 0 ml 780 ml 1000 ml Intake Oral 780 ml 1000 ml Output Urine Total 0 ml # Voids 3 2 # Bowel Movements 0 0 Result Diagram: 04/08/17 0707 04/07/[address] Angiography 04/05/17 0000 Signed Impressions: Service Date/Time: Wednesday, April 05, 2017 08:13 - CONCLUSION: 1. No evidence for pulmonary embolism. 2. Severe emphysema, patchy airspace disease and basilar dependent atelectatic changes. 3. Nodular focus in the superior segment right lower lobe as above. 4. [address] chest recommended to assess for resolution of these findings. Jose Hansen MD Liver Ultrasound 04/04/17 0811 Signed Impressions: Service Date/Time: Tuesday, April 04, 2017 15:10 - CONCLUSION: No focal abnormalities Rkaesh Gandhi MD Head CT 04/04/17 0000 Signed Impressions: Service Date/Time: Tuesday, April 04, 2017 09:42 - CONCLUSION: Slight increase in prominence of left temporal hemorrhage. Rakesh Gandhi MD Chest X-Ray 04/02/17 5031 Signed Impressions: Service Date/Time: Sunday, April 02, 2017 23:55 - CONCLUSION: No acute findings. No evidence of pneumothorax. Anuel Brennan MD Cervical Spine CT 04/02/17 0000 Signed Impressions: Service Date/Time: March 00:17 - CONCLUSION: Discogenic degenerative changes at C5-6 without neural foraminal narrowing. No evidence of acute fracture or spondylolisthesis. Anuel Brennan MD Objective Remarks GENERAL: Well-nourished, well-developed patient. Oriented 3. No hallucinations on 3 L SKIN: Left pinna with improving xerosis. Tympanic membrane intact HEAD: Normocephalic. EYES: No scleral icterus. No injection or drainage. NECK: Supple, trachea midline. No JVD or lymphadenopathy. CARDIOVASCULAR: Regular rate and rhythm without murmurs, gallops, or rubs. RESPIRATORY: Breath sounds equal bilaterally. No accessory muscle use. Resolved expiratory wheezes GASTROINTESTINAL: Abdomen soft, non-tender, nondistended. MUSCULOSKELETAL: No cyanosis, or edema. BACK: Nontender without obvious deformity. No CVA tenderness. EXTREMITIES: No clubbing cyanosis or edema. No tremors Procedures none A/P Problem List: (1) Subarachnoid hemorrhage ICD Code: I60.9 Status: Acute (2) Alcohol intoxication ICD Code: F10.929 Status: Acute Assessment and Plan Subarachnoid hemorrhage. Stable - Traumatic - Neuro checks per unit protocol - NS ff Thrombocytopenia improved over 90,000 - Most likely due to chronic alcohol use - Transfuse platelets to keep platelet count close to 90 due to ICH. - Ultrasound did not show liver and spleen abnormality. Diabetes mellitus. Uncontrolled secondary to steroids. A1c 6. -Continue metformin - Insulin sliding scale Alcohol intoxication. Improved - Monitor for withdrawal. Librium taper - Thiamine folate multivitamin - Ativan when necessary Acute respiratory failure secondary to COPD exacerbation. Improving no wheezes denies shortness of breath. Continue nebulizations, prednisone and Levaquin and wean oxygen. Increase activity as tolerated. Failed Oxygen walk test , he will need home oxygen Right lung nodule. Repeat CT in 3 months DVT GI prophylaxis - Teds SCDs - No pharmacological DVT prophylaxis due to acute ICH and thrombocytopenia - Pepcid Discharge Planning Discharge with home care when arranged Problem Qualifiers (1) Alcohol intoxication: Qualified Code: F10.929 - Alcohol intoxication, with unspecified complication Andrez Broussard MD Apr 09, 2017 08:23
[2017-04-09] MEDS: SODIUM CHLORIDE 0.9% FLUSH 10 ML FLUSH SCH (08:50)
[2017-04-09] MEDS: THIAMINE HCL 100 MG TAB PO SCH (08:51)
[2017-04-09] MEDS: chlordiazePOXIDE 25 MG CAP PO SCH (08:51)
[2017-04-09] MEDS: predniSONE 20 MG TAB PO SCH (08:51)
[2017-04-09] MEDS: metFORMIN HCL 500 MG TAB PO SCH ×2 (08:51→18:03)
[2017-04-09] MEDS: DOCUSATE SODIUM 50 MG/SENNA 8.6 MG TAB PO SCH (08:51)
[2017-04-09] MEDS: LACTIC ACID (AMMONIUM LACTATE) 12% LOTION 225 GM BTL TOPICAL SCH (08:52)
[2017-04-09] MEDS: NICOTINE 21 MG/24 HR PATCH T-DERMAL SCH (08:52)
[2017-04-09] MEDS: MORPHINE SULFATE 4 MG/ML INJ IV PRN (09:10)
[2017-04-09] MEDS: LEVOFLOXACIN 750 MG TAB PO SCH (15:51)
--- NOTE | 2017-04-09 16:20 | HHI.PR ---
Subjective Remarks No events overnight. Patient is on 2L oxygen Afebrile. no SOB or CP Has wheezing Breathing better Objective Vital Signs Vital Signs Date Time Temp Pulse Resp B/P Pulse Ox O2 Delivery O2 Flow Rate FiO2 04/09/17 12:00 98.2 87 19 139/64 90 04/09/17 10:22 94 Nasal Cannula 3.00 04/09/17 08:00 98.7 75 16 90/52 86 04/09/17 04:39 91 Nasal Cannula 3.00 04/09/17 04:30 98.8 80 22 101/65 95 04/08/17 21:50 3.00 04/08/17 21:00 98.0 88 20 99/60 97 04/08/17 20:33 98 Nasal Cannula 3.00 I/O 04/08/17 04/08/17 04/08/17 04/09/17 04/09/17 04/09/17 07:00 15:00 23:00 07:00 15:00 23:00 Intake Total 780 ml 1000 ml Output Total 0 ml Balance 0 ml 780 ml 1000 ml Intake Oral 780 ml 1000 ml Output Urine Total 0 ml # Voids 3 2 # Bowel Movements 0 0 Result Diagram: 04/08/17 0707 04/07/17 0742 Objective Remarks GENERAL: Patient is 66 yo sitting up in bed in NAD SKIN: Warm and dry. HEAD: Normocephalic. EYES: No scleral icterus. No injection or drainage. NECK: Supple, trachea midline. No JVD or lymphadenopathy. CARDIOVASCULAR: Regular rate and rhythm without murmurs, gallops, or rubs. RESPIRATORY: Breath sounds equal bilaterally. No accessory muscle use. GASTROINTESTINAL: Abdomen soft, non-tender, nondistended. MUSCULOSKELETAL: No cyanosis, or edema. Neuro: Awake and alert. A/P Assessment and Plan 1. Acute respiratory insufficiency. 2. COPD exacerbation. 3. Atelectasis. 4. A 1.4 x 1.4 cm nodular foci in the superior segment of the right lower lobe. 5. Active tobacco and EtOH abuse. 6. Thrombocytopenia. 7. Subarachnoid hemorrhage. Plan Continue with oxygen and maintain sats >92%. Bronchodilators, Incentive spirometry care q. 1 hour while awake. Continue with abx(Levaquin) and monitor for signs of infections(fever and WBC). Will need a repeat CT scan of the chest in 3 months to follow up on the stability of the nodular foci. PFT as an outpatient to assess the severity of his obstructive lung disease. Wean 02 to keep sat >90% DC plans underway Will FU in office Antonio Altman MD Apr 09, 2017 16:20
== END 2017-04-09 18:36 | disposition home health service (06) | DRG 82 ==
LOC: NEPC 23:22 → NEDA 04-03 01:06 → N03A 04-03 06:01 → N05A 04-06 16:55
PROVIDERS: ADMIT Family Medicine; ATTEND Family Medicine
PROC: 30233R1 Transfusion of Nonautologous Platelets into Peripheral Vein, Percutaneous Approach (ICD-10-PCS; principal; 2017-04-03)
DX: S06.6X9A Traumatic subarachnoid hemorrhage with loss of consciousness of unspecified duration, initial encounter (principal); J96.01 Acute respiratory failure with hypoxia; J44.1 Chronic obstructive pulmonary disease with (acute) exacerbation; J98.11 Atelectasis; F10.239 Alcohol dependence with withdrawal, unspecified; D69.59 Other secondary thrombocytopenia; E11.65 Type 2 diabetes mellitus with hyperglycemia; K74.60 Unspecified cirrhosis of liver; I25.2 Old myocardial infarction; S00.01XA Abrasion of scalp, initial encounter; R91.1 Solitary pulmonary nodule; T38.0X5A Adverse effect of glucocorticoids and synthetic analogues, initial encounter; M47.819 Spondylosis without myelopathy or radiculopathy, site unspecified; M47.812 Spondylosis without myelopathy or radiculopathy, cervical region; F17.210 Nicotine dependence, cigarettes, uncomplicated; W01.0XXA Fall on same level from slipping, tripping and stumbling without subsequent striking against object, initial encounter; Y90.7 Blood alcohol level of 200-239 mg/100 ml; Y92.512 Supermarket, store or market as the place of occurrence of the external cause; Y93.01 Activity, walking, marching and hiking; Z79.84 Long term (current) use of oral hypoglycemic drugs; Z88.2 Allergy status to sulfonamides
CPT/HCPCS: 36430; 70450; 71010; 71275; 72125; 76705; 80048; 80053; 80307; 82140; 82948; 83036; 83735; 84100; 85025; 85610; 85730; 86850; 86900; 86901; 86902; 86965; 87070; 87205; 87641; 90471; 90714; 93005; 94150; 94620; 94640; 94664; J1815; J1956; J2060; J2270; J2920; J3411; J7030; J7042; J7050; J7512; P9035; Q9967

== ENCOUNTER 2017-04-23 09:55 | Emergency (ER) | payer MEDICARE, OTHER ==
[~2017-04-23] VITALS: Ht 170.2 cm; Wt 85.0 kg
[~2017-04-23 09:55] MED LIST changes: +CHLO25CA9 PO; -CLIN1CAP6 PO; +GNP100TA3 PO; -HYDR-3533 PO; -LANTUSP SQ; +LEVA750T9 PO; -MEDR4PAK3 PO; +OXYGENDME NAS.CANULA; +PRED20 PO
[2017-04-23 10:32] VITALS: BP 135/87; PULSE 88; RESP 18; TEMP 98.5; O2SAT 94
[2017-04-23 10:35] VITALS: BP 135/87; PULSE 88; RESP 18; TEMP 98.5; O2SAT 94
[2017-04-23] MEDS ORDERED: LANTUS2P SQ (10:43)
[2017-04-23] MEDS ORDERED: HYDR-3533 PO (10:43)
[2017-04-23] MEDS ORDERED: POTA10CA PO (10:43)
--- NOTE | 2017-04-23 11:02 | PD ---
HPI Chief Complaint: Psychiatric Symptoms Time Seen by Provider: 10:28 Travel History International Travel<30 days: No Contact w/Intl Traveler<30days: No Traveled to known affect area: No History of Present Illness HPI Patient is a 66-year-old male presents emergency department for evaluation of Blake act. He is a coming by his roommate who states that she is no longer able to take care of him. The patient is apparently retired and lives off his jail benefits. According to his roommate he drinks heavily and then states that he wants to kill himself. The patient apparently does not do any of his normal activities anymore he just drinks and states he wants to kill himself. Patient has significant history of being admitted to the hospital for history of brain bleed and then subsequently admitted and intubated for hypercapnic respiratory failure. She states that he has been unable to take care of himself for some time and she requested that he be placed into a rehabilitation facility on his last admission to the hospital however the patient declined him because he was of sound mind and body he was not admitted to a rehabilitation facility. Patient apparently made suicidal comments today and she called 911 and the patient was placed under Blake act by police. He denies any physical complaints now, denies any headache chest pain abdominal pain nausea vomiting diarrhea, he does endorse some chronic extremity pain but states is not something new. 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) Hypertension: No Immune Disorder: No Implanted Vascular Access Dvce: No Musculoskeletal: No Neurologic: No Psychiatric: No Reproductive: No Respiratory: No Immunizations Current: Yes Migraines: No Myocardial Infarction: Yes (PT DOES NOT KNOW IF HE HAD A CATH WHEN HE HAD THE LA) Pneumonia: Yes (MULTIPLE TIMES) Radiation Therapy: No Seizures: No Sickle Cell Disease: No Sleep Apnea: No Thyroid Disease: No Ulcer: No ?: Not Past Surgical History Abdominal Surgery: No AICD: No Arteriovenous Shunt: No Cardiac Surgery: No Ear Surgery: No Endocrine Surgery: No Eye Surgery: No Genitourinary Surgery: Yes (Vasectomy) Gynecologic Surgery: No Insulin Pump: No Joint Replacement: No Neurologic Surgery: No Oral Surgery: Yes (TONSILLECTOMY) Pacemaker: No Thoracic Surgery: No Tonsillectomy: Yes Other Surgery: Yes (VASECTOMY AND CIRCUMSISION) Social History Alcohol Use: Yes (occasionally) Tobacco Use: Yes (2ppd) Substance Use: No Allergies-Medications (Allergen,Severity, Reaction): Coded Allergies: Sulfa (Verified Allergy, Severe, UNKNOWN - CHILD, 04/23/17) Reported Meds & Prescriptions Reported Meds & Active Scripts Active Oxygen (O2) Device 2 Liter LIZA.CANULA CONTINUOUS Oxygen Concentrator Portable Gaseous 2 L/min via Nasal Canula Continuous For 99 months Gnp Vitamin B-1 (Thiamine HCl) 100 Mg Tab 100 Mg PO DAILY Chlordiazepoxide HCl 25 Mg Capsule 25 Mg PO BID Take 1 pill twice a day for 2 days then 1 pill daily for 3 days. Do not combine with alcohol. Reported Lortab (Hydrocodone-Acetaminophen) 5-325 Mg Tab 1 Tab PO Q4H PRN Potassium Chloride ER (Potassium Chloride) 10 Meq Cap 10 Meq PO BID Lantus Inj (Insulin Glargine) 1,000 Unit/10 Ml Vial 1 Units SQ HS Glucophage XR (Metformin HCl) 500 Mg Genet 500 Mg PO BID With evening meal Review of Systems Except as stated in HPI: all other systems reviewed are Neg Physical Exam Narrative GENERAL: Well-developed well-nourished no obvious distress. SKIN: Focused skin assessment warm/dry. HEAD: Atraumatic. Normocephalic. EYES: Pupils equal and round. No scleral icterus. No injection or drainage. ENT: No nasal bleeding or discharge. Mucous membranes pink and moist. NECK: Trachea midline. No JVD. CARDIOVASCULAR: Regular rate and rhythm. No murmur appreciated. RESPIRATORY: No accessory muscle use. Clear to auscultation. Breath sounds equal bilaterally. GASTROINTESTINAL: Abdomen soft, non-tender, nondistended. Hepatic and splenic margins not palpable. MUSCULOSKELETAL: No obvious deformities. No clubbing. No cyanosis. No edema. NEUROLOGICAL: Awake and alert. No obvious cranial nerve deficits. Motor grossly within normal limits. Normal speech. PSYCHIATRIC: Acting almost intoxicated, insight poor, judgment poor, denies suicidal ideation stating "it was just a joke". Denies homicidal ideation. Data Data Last Documented VS Vital Signs Date Time Temp Pulse Resp B/P Pulse Ox O2 Delivery O2 Flow Rate FiO2 04/23/17 10:35 98.5 88 18 135/87 94 Room Air Orders Complete Blood Count With Diff (04/23/17 10:29) Comprehensive Metabolic Panel (04/23/17 10:29) Psych Screen (04/23/17 10:29) Drug Screen, Random Urine (04/23/17 10:29) Alcohol (Ethanol) (04/23/17 10:29) Blood Gas Venous (Vbg) (04/23/17 11:00) Ct Brain W/O Iv Contrast(Rout) (04/23/17 ) Labs Laboratory Tests Test 04/23/17 04/23/17 04/23/17 11:11 11:19 14:00 White Blood Count 4.5 TH/MM3 Red Blood Count 3.86 MIL/MM3 Hemoglobin 12.3 GM/DL Hematocrit 36.4 % Mean Corpuscular Volume 94.3 FL Mean Corpuscular Hemoglobin 31.8 PG Mean Corpuscular Hemoglobin 33.7 % Concent Red Cell Distribution Width 16.0 % Platelet Count 53 TH/MM3 Mean Platelet Volume 7.8 FL Neutrophils (%) (Auto) 67.1 % Lymphocytes (%) (Auto) 17.5 % Monocytes (%) (Auto) 11.4 % Eosinophils (%) (Auto) 3.1 % Basophils (%) (Auto) 0.9 % Neutrophils # (Auto) 3.0 TH/MM3 Lymphocytes # (Auto) 0.8 TH/MM3 Monocytes # (Auto) 0.5 TH/MM3 Eosinophils # (Auto) 0.1 TH/MM3 Basophils # (Auto) 0.0 TH/MM3 CBC Comment AUTO DIFF Differential Comment AUTO DIFF CONFIRMED Sodium Level 135 MEQ/L Potassium Level 3.5 MEQ/L Chloride Level 100 MEQ/L Carbon Dioxide Level 29.1 MEQ/L Anion Gap 6 MEQ/L Blood Urea Nitrogen 13 MG/DL Creatinine 0.69 MG/DL Estimat Glomerular Filtration 114 ML/MIN Rate Random Glucose 147 MG/DL Calcium Level 8.1 MG/DL Total Bilirubin 0.8 MG/DL Aspartate Amino Transf 12 U/L (AST/SGOT) Alanine Aminotransferase 11 U/L (ALT/SGPT) Alkaline Phosphatase 57 U/L Total Protein 7.0 GM/DL Albumin 3.3 GM/DL Ethyl Alcohol Level LESS THAN 3 MG/DL Blood Gas Puncture Site RAC Blood Gas Patient Temperature 98.6 Venous Blood pH 7.40 Venous Blood Partial Pressure 50 mmHg CO2 Venous Blood Partial Pressure 22 mmHg O2 Venous Blood HCO3 31 mmol/L Venous Blood Oxygen Saturation 30 % Venous Blood Oxygen Content 5.2 Vol % Venous Blood Base Excess 6.1 mmol/L Oxygen Delivery Device RA Blood Gas Inspired Oxygen 21 % Urine Opiates Screen NEG Urine Barbiturates Screen NEG Urine Amphetamines Screen NEG Urine Benzodiazepines Screen POS Urine Cocaine Screen NEG Urine Cannabinoids Screen NEG MDM Medical Decision Making Medical Screen Exam Complete: Yes Emergency Medical Condition: Yes Differential Diagnosis Head injury, psychiatric disorder, CO2 retention likely, alcohol intoxication, substance abuse, psychiatric illness, depression, suicidal ideation. Narrative Course Patient roomed in emergency department, taking extreme precaution given the roommates history the patient had a CAT scan of her head which was negative, VBG showed no CO2 retention. Basic labs CBC CMP alcohol level all negative. UDS pending at this time. The patient is medically stable for psychiatric evaluation and disposition, he is under Blake act by law enforcement. Diagnosis Primary Impression: Suicidal ideation Disposition: 01 DISCHARGE HOME Condition: Stable Luc Vasquez MD Apr 23, 2017 11:02
[2017-04-23 11:29] LABS: BLOOD GAS VENOUS BASE EXCESS 6.1 mmol/L (-2-2); BLOOD GAS VENOUS HCO3 31 mmol/L (22-26); BLOOD GAS VENOUS O2 CONTENT 5.2 Vol % (9.0-17.0); BLOOD GAS VENOUS O2 HGB SAT 30 % (70-76); BLOOD GAS VENOUS PCO2 50 mmHg (44-48); BLOOD GAS VENOUS PO2 22 mmHg (35-40); TEMP CORR TO 98.6
[2017-04-23 11:30] LABS: CRITICAL VALUE YES; DRAW SITE RAC; FIO2 21 %; OXYGEN DEVICE RA; STAT YES
[2017-04-23 11:31] LABS: BASOPHIL % 0.9 % (0.0-2.0); EOSINOPHIL # 0.1 TH/MM3 (0-0.4); EOSINOPHIL % 3.1 % (0.0-4.0); HEMATOCRIT 36.4 % (39.0-51.0); LYMPH % 17.5 % (9.0-44.0); LYMPHOCYTE # 0.8 TH/MM3 (1.0-4.8); MEAN CELL VOLUME 94.3 FL (80.0-100.0); MEAN CORPUSCULAR HEMOGLOBIN 31.8 PG (27.0-34.0); MEAN CORPUSCULAR HGB CONC 33.7 % (32.0-36.0); MONO % 11.4 % (0.0-8.0); NEUT % 67.1 % (16.0-70.0); PLATELET COUNT 53 TH/MM3 (150-450); RED BLOOD COUNT 3.86 MIL/MM3 (4.50-5.90); WHITE BLOOD COUNT 4.5 TH/MM3 (4.0-11.0)
[2017-04-23 11:42] LABS: HEMO FLAGS AUTO DIFF
[2017-04-23 11:56] LABS: ALT (GPT) 11 U/L (12-78); ANION GAP 6 MEQ/L (5-15); AST (GOT) 12 U/L (15-37); BICARBONATE 29.1 MEQ/L (21.0-32.0); BLOOD UREA NITROGEN 13 MG/DL (7-18); CHLORIDE 100 MEQ/L (98-107); GLOMERULAR FILTRATION RATE 114 ML/MIN (>89); POTASSIUM 3.5 MEQ/L (3.5-5.1); SODIUM (NA) 135 MEQ/L (136-145)
[2017-04-23 11:59] LABS: ALKALINE PHOSPHATASE 57 U/L (45-117); TOTAL BILIRUBIN ADULT 0.8 MG/DL (0.2-1.0)
[2017-04-23 12:30] LABS: SCAN/DIFF AUTO DIFF CONFIRMED
--- NOTE | 2017-04-23 13:34 | RADRPT ---
EXAM DATE/TIME: 04/23/2017 13:21 [facility] COMPARISON: CT BRAIN W/O CONTRAST, April 04, 2017, 9:42. INDICATIONS : Altered mental status. RADIATION DOSE: 56.38 CTDIvol (mGy) MEDICAL HISTORY : Cardiovascular disease. Diabetes SURGICAL HISTORY : None. ENCOUNTER: Initial ACUITY: 1 day PAIN SCALE: 0/10 LOCATION: cranial TECHNIQUE: Multiple contiguous axial images were obtained of the head. Using automated exposure control and adj ustment of the mA and/or kV according to patient size, radiation dose was kept as low as reasonably a chievable to obtain optimal diagnostic quality images. DICOM format image data is available electro nically for review and comparison. FINDINGS: CEREBRUM: The ventricles are normal for age. Cerebral atrophy. Scattered areas of low attenuation throughout th e white matter. No evidence of midline shift, mass lesion, hemorrhage or acute infarction. No extra- axial fluid collections are seen. POSTERIOR FOSSA: The cerebellum and brainstem are intact. The 4th ventricle is midline. The cerebellopontine angle i s unremarkable. EXTRACRANIAL: The visualized portion of the orbits is intact. SKULL: The calvaria is intact. No evidence of skull fracture. CONCLUSION: 1. No acute intracranial abnormality. 2. Nonspecific white matter changes. 3. Hemorrhage not seen on current study. Bhaskar Pinedo MD on April 23, 2017 at 13:31 Board Certified Radiologist. This report was verified electronically.
[2017-04-23 14:45] LABS: AMPHETAMINE, URINE NEG (NEG); BARBITURATES, URINE NEG (NEG); COCAINE, URINE NEG (NEG)
--- NOTE | 2017-04-24 08:37 | PD.PSY.CON ---
Provisional Diagnosis Admission Date [place] I. Adjustment disorder with depressed mood [place] II. Deferred History of Present Illness Service Psychiatry Consult Requested By Primary Care Physician Chen Hamilton MD HPI The patient is a 66-year-old man, domicile with a roommate, single, supported by Social Security, without any previous psychiatric history, no previous suicidal attempts, no previous psychiatric hospitalizations, who presents emergency department for evaluation of Blake act. He is a coming by his roommate who states that she is no longer able to take care of him. The patient is apparently retired and lives off his [place] [facility] benefits. According to his roommate he drinks heavily and then states that he wants to kill himself. The patient apparently does not do any of his normal activities anymore he just drinks and states he wants to kill himself. Patient has significant history of being admitted to the hospital for history of brain bleed and then subsequently admitted and intubated for hypercapnic respiratory failure. She states that he has been unable to take care of himself for some time and she requested that he be placed into a rehabilitation facility on his last admission to the hospital however the patient declined him because he was of sound mind and body he was not admitted to a rehabilitation facility. Patient apparently made suicidal comments today and she called 911 and the patient was placed under Blake act by police. However, today on psychiatric evaluation, patient is in a good mood, asking for food because he is hungry, patient denies depressive symptoms, he denies anhedonia, he denies suicidal and homicidal ideation, he denies visual and auditory hallucinations. Patient is future oriented, oriented 3, logical, coherent and relevant. No gross cognitive impairment, no attention deficit present. Patient reports almost daily use of alcohol, but denies the use of illicit drugs. Review of Systems Constitutional: DENIES: Diaphoretic episodes, Fatigue, Fever, Weight gain, Weight loss, Chills, Dizziness, Change in appetite, Night Sweats Endocrine: DENIES: Heat/cold intolerance, Polydipsia, Polyuria, Polyphagia Eyes: DENIES: Blurred vision, Diplopia, Eye inflammation, Eye pain, Vision loss , Photosensitivity, Double Vision Ears, nose, mouth, throat: DENIES: Tinnitus, Hearing loss, Vertigo, Nasal discharge, Oral lesions, Throat pain, Hoarseness, Ear Pain, Running Nose, Epistaxis, Sinus Pain, Toothache, Odynophagia Respiratory: DENIES: Apneas, Cough, Snoring, Wheezing, Hemoptysis, Sputum production, Shortness of breath Cardiovascular: DENIES: Chest pain, Palpitations, Syncope, Dyspnea on Exertion , PND, Lower Extremity Edema, Orthopnea, Claudication Gastrointestinal: DENIES: Abdominal pain, Black stools, Bloody stools, Constipation, Diarrhea, Nausea, Vomiting, Difficulty Swallowing, Anorexia Musculoskeletal: DENIES: Joint pain, Muscle aches, Stiffness, Joint Swelling, Back pain, Neck pain Integumentary: DENIES: Abnormal pigmentation, Nail changes, Pruritus, Rash Hematologic/lymphatic: DENIES: Bruising, Lymphadenopathy Immunologic/allergic: DENIES: Eczema, Urticaria Neurologic: DENIES: Abnormal gait, Headache, Localized weakness, Paresthesias, Seizures, Speech Problems, Tremor, Poor Balance Psychiatric: DENIES: Anxiety, Confusion, Mood changes, Depression, Hallucinations, Agitation, Suicidal Ideation, Homicidal Ideation, Delusions Past Family Social History Coded Allergies: Sulfa (Verified Allergy, Severe, UNKNOWN - CHILD, 04/23/17) Active Scripts Oxygen (O2) Device #2 Liter Boris.canula Continuous Oxygen Concentrator Portable Gaseous 2 L/min via Nasal Canula Continuous For 99 months Prov:Andrez Broussard MD 04/08/17 Thiamine HCl (Gnp Vitamin B-1)100 Mg [id number] Mg PO DAILY #30 TAB Prov:Andrez Broussard MD 04/07/17 Chlordiazepoxide HCl 25 Mg Naapred84 Mg PO BID #7 MG Take 1 pill twice a day for 2 days then 1 pill daily for 3 days. Do not combine with alcohol. Prov:Andrez Broussard MD 04/07/17 Reported Medications Hydrocodone-Acetaminophen (Lortab)5-325 Mg Tab1 Tab PO Q4H PRN (PAIN) Ref 0 04/23/17 Potassium Chloride ER 10 Meq Cap10 Meq PO BID #60 CAP Ref 0 04/23/17 Insulin Glargine Inj (Lantus Inj)1,000 Unit/10 Ml Vial1 Units SQ HS Ref 0 04/23/17 Metformin ER (Glucophage XR)500 Mg [id number] Mg PO BID #30 TAB Ref 0 With evening meal 04/02/17 Discontinued Scripts Prednisone 20 Mg Tab40 Mg PO DAILY #2 TAB Prov:Andrez Broussard MD 04/07/17 Levofloxacin (Levaquin)750 Mg [id number] Mg PO DAILY #2 MG Prov:Andrez Broussard Barbi MARTIN 04/07/17 Family History A she denies psychiatric family history Social History Patient was born and raised in [place], he lives in [place] with a roommate, supported by Social Security, single, his highest level of education is ninth grade Patient's Strengths (min. 2) Verbal communication, no psychiatric history Physical Exam Vital Signs Vital Signs Date Time Temp Pulse Resp B/P Pulse Ox O2 Delivery O2 Flow Rate FiO2 04/23/17 10:35 98.5 88 18 135/87 94 Room Air Mental Status Examination Appearance man, age appearing, calm and cooperative Speech: Unremarkable Orientation: x3 Memory: Unremarkable Thought Content: Unremarkable Hallucination Type: None Suicidal Ideation: No Previous Suicide Attempts: No Homicidal Ideation: No Previous Homicide Attempts: No Insight: Good Affect: Good Mood: Appropriate Motor Activity: Normal gait Assessment & Plan Problem List: (1) Alcohol abuse with alcohol-induced mood disorder Assessment & Plan: At the moment of this evaluation the patient does not present any significant depressive symptoms, no anxiety, no evidence of psychosis. Patient denies suicidal and homicidal ideation, he denies visual and auditory hallucinations. Patient is logical, coherent, goal and future oriented. Clinically sober. Oriented 3. He does not meet criteria for psychiatric admission at this moment. Extensive support, motivation and psychoeducation provided. Blake act will be lifted. ICD Code: F10.14 Assessment & Plan Estimated LOS: Jose Luis Rinaldi MD Apr 24, 2017 08:37
== END 2017-04-23 17:34 | disposition home or self-care (01) ==
LOC: NEPD 09:55
DX: R45.851 Suicidal ideations (principal); M13.80 Other specified arthritis, unspecified site; E11.9 Type 2 diabetes mellitus without complications; B19.20 Unspecified viral hepatitis C without hepatic coma; I25.2 Old myocardial infarction; F17.200 Nicotine dependence, unspecified, uncomplicated; Z79.899 Other long term (current) drug therapy; Z79.4 Long term (current) use of insulin; Z88.2 Allergy status to sulfonamides
CPT/HCPCS: 70450; 80053; 80307; 82805; 85025

== ENCOUNTER 2017-04-29 14:25 | Emergency (ER) | payer OTHER ==
[~2017-04-29] VITALS: Ht 172.7 cm; Wt 90.0 kg
[~2017-04-29 14:25] MED LIST changes: +HYDR-3533 PO; +LANTUS2P SQ; -LEVA750T9 PO; +POTA10CA PO; -PRED20 PO
[2017-04-29 14:27] VITALS: BP 112/88; PULSE 104; RESP 16; TEMP 97.9; O2SAT 99
[2017-04-29 16:39] VITALS: BP 101/66; PULSE 83; RESP 20; O2SAT 97
--- NOTE | 2017-04-29 16:42 | RADRPT ---
EXAM DATE/TIME: 04/29/2017 16:33 [facility] COMPARISON: CHEST SINGLE AP, April 05, 2017, 6:53. INDICATIONS : Shortness of breath. MEDICAL HISTORY : Myocardial infarction. Hepatitis C SURGICAL HISTORY : Tonsillectomy. ENCOUNTER: Initial ACUITY: 1 day PAIN SCORE: 0/10 LOCATION: Bilateral chest FINDINGS: A single view of the chest demonstrates the lungs to be symmetrically aerated with mild, symmetric bi basilar atelectatic changes. No confluent infiltrate or effusion. Heart size is normal. Old healed fr acture deformities in the posterolateral upper left ribs. Osseous structures are otherwise intact. CONCLUSION: 1. Symmetric bibasilar atelectatic changes just above the hemidiaphragms. No confluent infiltrate. 2. Old healed fracture deformities of the posterolateral upper left ribs. Ethan Clements MD on April 29, 2017 at 16:36 Board Certified Radiologist. This report was verified electronically.
--- NOTE | 2017-04-29 17:06 | PD ---
HPI Chief Complaint: Psychiatric Symptoms Time Seen by Provider: 16:00 Travel History International Travel<30 days: No Contact w/Intl Traveler<30days: No Traveled to known affect area: No History of Present Illness HPI Patient is a 66-year-old male presenting to the emergency department for evaluation of suicidal ideations. Patient is accompanied by his roommate who states patient has been making suicidal statements regarding hanging himself and cutting his wrists. Patient reports not wanting to live anymore. He reports that more of his family has been dying and he's been depressed for several years. Roommate states the patient gets confused easily, she states this is since he had a trip and fall 3 weeks ago that resulted in a brain bleed. Patient has a history of alcoholism, he states he hasn't had any alcohol since Friday. He reports chronic back pain for which she takes Lortab and/or morphine but does not completely alleviate his pain. He denies any visual auditory hallucinations. He denies any previous suicide attempts. There has been no new injury or falls. 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) Hypertension: No Immune Disorder: No Implanted Vascular Access Dvce: No Musculoskeletal: No Neurologic: No Psychiatric: No Reproductive: No Respiratory: No Immunizations Current: Yes Migraines: No Myocardial Infarction: Yes Pneumonia: Yes Radiation Therapy: No Seizures: No Sickle Cell Disease: No Sleep Apnea: No Thyroid Disease: No Ulcer: No Past Surgical History Abdominal Surgery: No AICD: No Arteriovenous Shunt: No Cardiac Surgery: No Ear Surgery: No Endocrine Surgery: No Eye Surgery: No Genitourinary Surgery: Yes (Vasectomy) Gynecologic Surgery: No Insulin Pump: No Joint Replacement: No Neurologic Surgery: No Pacemaker: No Thoracic Surgery: No Tonsillectomy: Yes Social History Alcohol Use: Yes (ALCOHOLIC PER FAMILY) Tobacco Use: Yes (2ppd) Substance Use: No Allergies-Medications (Allergen,Severity, Reaction): Coded Allergies: Sulfa (Verified Allergy, Severe, UNKNOWN - CHILD, 04/29/17) Reported Meds & Prescriptions Reported Meds & Active Scripts Active Oxygen (O2) Device 2 Liter LIZA.CANULA CONTINUOUS Oxygen Concentrator Portable Gaseous 2 L/min via Nasal Canula Continuous For 99 months Gnp Vitamin B-1 (Thiamine HCl) 100 Mg Tab 100 Mg PO DAILY Chlordiazepoxide HCl 25 Mg Capsule 25 Mg PO BID Take 1 pill twice a day for 2 days then 1 pill daily for 3 days. Do not combine with alcohol. Reported Lortab (Hydrocodone-Acetaminophen) 5-325 Mg Tab 1 Tab PO Q4H PRN Potassium Chloride ER (Potassium Chloride) 10 Meq Cap 10 Meq PO BID Lantus Inj (Insulin Glargine) 1,000 Unit/10 Ml Vial 1 Units SQ HS Glucophage XR (Metformin HCl) 500 Mg Genet 500 Mg PO BID With evening meal Review of Systems Except as stated in HPI: all other systems reviewed are Neg Respiratory: Positive: Cough Musculoskeletal: Positive: Pain (chronic back pain) Psychiatric: Positive: Depression, Suicidal Ideations, Substance Abuse Physical Exam Narrative GENERAL: Well-developed, well-nourished, chronically ill appearing male. Resting comfortably in no acute distress. SKIN: Warm and dry. Chronic changes to bilateral lower extremities HEAD: Atraumatic. Normocephalic. EYES: Pupils equal and round. No scleral icterus. No injection or drainage. ENT: No nasal bleeding or discharge. Mucous membranes pink and moist. NECK: Trachea midline. No JVD. CARDIOVASCULAR: Regular rate and rhythm. RESPIRATORY: No accessory muscle use. Scattered expiratory wheezing throughout GASTROINTESTINAL: Abdomen soft, non-tender, nondistended. Hepatic and splenic margins not palpable. Positive bowel sounds, no rebound, no guarding MUSCULOSKELETAL: Extremities without clubbing, cyanosis, or edema. No obvious deformities. NEUROLOGICAL: Awake and alert. No obvious cranial nerve deficits. Motor grossly within normal limits. Five out of 5 muscle strength in the arms and legs. Normal speech. PSYCHIATRIC: Flat mood and affect; insight and judgment normal. Data Data Last Documented VS Vital Signs Date Time Temp Pulse Resp B/P Pulse Ox O2 Delivery O2 Flow Rate FiO2 04/29/17 16:39 83 20 101/66 97 Room Air 04/29/17 14:27 97.9 Orders Complete Blood Count With Diff (04/29/17 15:59) Comprehensive Metabolic Panel (04/29/17 15:59) Thyroid Stimulating Hormone (04/29/17 15:59) Urinalysis - C+S If Indicated (04/29/17 15:59) Iv Access Insert/Monitor (04/29/17 15:59) Ecg Monitoring (04/29/17 15:59) Psych Screen (04/29/17 15:59) Drug Screen, Random Urine (04/29/17 15:59) Alcohol (Ethanol) (04/29/17 15:59) Salicylates (Aspirin) (04/29/17 15:59) Tylenol (Acetaminophen) (04/29/17 15:59) Chest, Single Ap (04/29/17 ) Ammonia (04/29/17 16:18) Diet Regular Basic (04/29/17 Dinner) Labs Laboratory Tests Test 04/29/17 04/29/17 04/29/17 16:26 16:27 18:40 White Blood Count 2.8 TH/MM3 Red Blood Count 4.44 MIL/MM3 Hemoglobin 14.1 GM/DL Hematocrit 42.1 % Mean Corpuscular Volume 94.8 FL Mean Corpuscular Hemoglobin 31.7 PG Mean Corpuscular Hemoglobin 33.4 % Concent Red Cell Distribution Width 16.4 % Platelet Count 101 TH/MM3 Mean Platelet Volume 7.7 FL Neutrophils (%) (Auto) 51.2 % Lymphocytes (%) (Auto) 36.3 % Monocytes (%) (Auto) 5.5 % Eosinophils (%) (Auto) 5.8 % Basophils (%) (Auto) 1.2 % Neutrophils # (Auto) 1.5 TH/MM3 Lymphocytes # (Auto) 1.0 TH/MM3 Monocytes # (Auto) 0.2 TH/MM3 Eosinophils # (Auto) 0.2 TH/MM3 Basophils # (Auto) 0.0 TH/MM3 CBC Comment AUTO DIFF Differential Comment AUTO DIFF CONFIRMED Platelet Estimate LOW Platelet Morphology Comment NORMAL Sodium Level 140 MEQ/L Potassium Level 5.0 MEQ/L Chloride Level 103 MEQ/L Carbon Dioxide Level 29.5 MEQ/L Anion Gap 8 MEQ/L Blood Urea Nitrogen 10 MG/DL Creatinine 0.82 MG/DL Estimat Glomerular Filtration 93 ML/MIN Rate Random Glucose 102 MG/DL Calcium Level 8.9 MG/DL Total Bilirubin 0.7 MG/DL Aspartate Amino Transf 45 U/L (AST/SGOT) Alanine Aminotransferase 13 U/L (ALT/SGPT) Alkaline Phosphatase 65 U/L Total Protein 8.0 GM/DL Albumin 3.5 GM/DL Thyroid Stimulating Hormone 0.669 uIU/ML 3rd Gen Salicylates Level LESS THAN 1.7 MG/DL Acetaminophen Level LESS THAN 2.0 MCG/ML Ethyl Alcohol Level LESS THAN 3 MG/DL Ammonia 35 MCMOL/L Urine Color YELLOW Urine Turbidity CLEAR Urine pH 6.0 Urine Specific [place] 1.018 Urine Protein TRACE mg/dL Urine Glucose (UA) NEG mg/dL Urine Ketones NEG mg/dL Urine Occult Blood NEG Urine Nitrite NEG Urine Bilirubin NEG Urine Urobilinogen 2.0 MG/DL Urine Leukocyte Esterase NEG Urine WBC 3 /hpf Urine Mucus FEW /lpf Microscopic Urinalysis Comment CULT NOT INDICATED Urine Opiates Screen NEG Urine Barbiturates Screen NEG Urine Amphetamines Screen NEG Urine Benzodiazepines Screen POS Urine Cocaine Screen NEG Urine Cannabinoids Screen NEG MDM Medical Decision Making Medical Screen Exam Complete: Yes Emergency Medical Condition: Yes Medical Record Reviewed: Yes Interpretation(s) Laboratory Tests Test 04/29/17 04/29/17 04/29/17 16:26 16:27 18:40 White Blood Count 2.8 TH/MM3 Red Blood Count 4.44 MIL/MM3 Hemoglobin 14.1 GM/DL Hematocrit 42.1 % Mean Corpuscular Volume 94.8 FL Mean Corpuscular Hemoglobin 31.7 PG Mean Corpuscular Hemoglobin 33.4 % Concent Red Cell Distribution Width 16.4 % Platelet Count 101 TH/MM3 Mean Platelet Volume 7.7 FL Neutrophils (%) (Auto) 51.2 % Lymphocytes (%) (Auto) 36.3 % Monocytes (%) (Auto) 5.5 % Eosinophils (%) (Auto) 5.8 % Basophils (%) (Auto) 1.2 % Neutrophils # (Auto) 1.5 TH/MM3 Lymphocytes # (Auto) 1.0 TH/MM3 Monocytes # (Auto) 0.2 TH/MM3 Eosinophils # (Auto) 0.2 TH/MM3 Basophils # (Auto) 0.0 TH/MM3 CBC Comment AUTO DIFF Differential Comment AUTO DIFF CONFIRMED Platelet Estimate LOW Platelet Morphology Comment NORMAL Sodium Level 140 MEQ/L Potassium Level 5.0 MEQ/L Chloride Level 103 MEQ/L Carbon Dioxide Level 29.5 MEQ/L Anion Gap 8 MEQ/L Blood Urea Nitrogen 10 MG/DL Creatinine 0.82 MG/DL Estimat Glomerular Filtration 93 ML/MIN Rate Random Glucose 102 MG/DL Calcium Level 8.9 MG/DL Total Bilirubin 0.7 MG/DL Aspartate Amino Transf 45 U/L (AST/SGOT) Alanine Aminotransferase 13 U/L (ALT/SGPT) Alkaline Phosphatase 65 U/L Total Protein 8.0 GM/DL Albumin 3.5 GM/DL Thyroid Stimulating Hormone 0.669 uIU/ML 3rd Gen Salicylates Level LESS THAN 1.7 MG/DL Acetaminophen Level LESS THAN 2.0 MCG/ML Ethyl Alcohol Level LESS THAN 3 MG/DL Ammonia 35 MCMOL/L Urine Color YELLOW Urine Turbidity CLEAR Urine pH 6.0 Urine Specific [place] 1.018 Urine Protein TRACE mg/dL Urine Glucose (UA) NEG mg/dL Urine Ketones NEG mg/dL Urine Occult Blood NEG Urine Nitrite NEG Urine Bilirubin NEG Urine Urobilinogen 2.0 MG/DL Urine Leukocyte Esterase NEG Urine WBC 3 /hpf Urine Mucus FEW /lpf Microscopic Urinalysis Comment CULT NOT INDICATED Urine Opiates Screen NEG Urine Barbiturates Screen NEG Urine Amphetamines Screen NEG Urine Benzodiazepines Screen POS Urine Cocaine Screen NEG Urine Cannabinoids Screen NEG Vital Signs Date Time Temp Pulse Resp B/P Pulse Ox O2 Delivery O2 Flow Rate FiO2 04/29/17 16:39 83 20 101/66 97 Room Air 04/29/17 14:27 97.9 104 16 112/88 99 Differential Diagnosis Mood disorder versus substance abuse versus intoxication versus depression versus other Narrative Course Patient is a 66-year-old male presenting to the emergency department for evaluation of suicidal ideations. Patient admits to making suicidal statements , he reports that he could hang himself or cut his wrists. Mental health screening discussed with the patient. Psychiatric screen ordered. CBC with a white count of 2.8, red blood cell count 4.44, platelets 101 Chemistry reviewed, no acute findings identified Ammonia 35, previous value was 31 Urine drug screen is positive for benzodiazepines Salicylate, acetaminophen and alcohol level are unremarkable Urinalysis reviewed and is unremarkable Chest x-ray with symmetric by basilar atelectatic changes as above the hemidiaphragms. No confluent infiltrate, old healed fracture deformities of the posterior lateral upper left ribs DuoNeb 3 ordered and budesonide nebulizer. Discussed results with my attending physician. Patient is medically cleared for psychiatric evaluation at this time. Diagnosis Primary Impression: Medical clearance for psychiatric admission Additional Impressions: COPD (chronic obstructive pulmonary disease) Qualified Code: J44.9 - Chronic obstructive pulmonary disease, unspecified COPD type Suicidal ideation Condition: Stable Dotty Holder Apr 29, 2017 17:06
[2017-04-29 17:17] LABS: AUTOMATED NEUTROPHIL # 1.5 TH/MM3 (1.8-7.7); BASOPHIL % 1.2 % (0.0-2.0); EOSINOPHIL # 0.2 TH/MM3 (0-0.4); EOSINOPHIL % 5.8 % (0.0-4.0); HEMATOCRIT 42.1 % (39.0-51.0); LYMPH % 36.3 % (9.0-44.0); MEAN CELL VOLUME 94.8 FL (80.0-100.0); MEAN CORPUSCULAR HEMOGLOBIN 31.7 PG (27.0-34.0); MEAN CORPUSCULAR HGB CONC 33.4 % (32.0-36.0); MONO % 5.5 % (0.0-8.0); NEUT % 51.2 % (16.0-70.0); PLATELET COUNT 101 TH/MM3 (150-450); RED BLOOD COUNT 4.44 MIL/MM3 (4.50-5.90); RED CELL DISTRIBUTION WIDTH 16.4 % (11.6-17.2); WHITE BLOOD COUNT 2.8 TH/MM3 (4.0-11.0)
[2017-04-29 17:30] LABS: HEMO FLAGS AUTO DIFF
[2017-04-29 17:38] LABS: ALKALINE PHOSPHATASE 65 U/L (45-117); TOTAL BILIRUBIN ADULT 0.7 MG/DL (0.2-1.0)
[2017-04-29 18:14] LABS: ALT (GPT) 13 U/L (12-78); ANION GAP 8 MEQ/L (5-15); AST (GOT) 45 U/L (15-37); BICARBONATE 29.5 MEQ/L (21.0-32.0); CHLORIDE 103 MEQ/L (98-107); GLOMERULAR FILTRATION RATE 93 ML/MIN (>89); SODIUM (NA) 140 MEQ/L (136-145)
[2017-04-29 18:17] LABS: ACETAMINOPHEN LESS THAN 2.0 MCG/ML (10.0-30.0); BLOOD UREA NITROGEN 10 MG/DL (7-18)
[2017-04-29 18:27] LABS: PLATELET ESTIMATE SMEAR LOW (NORMAL); PLATELET MORPHOLOGY NORMAL (NORMAL); SCAN/DIFF AUTO DIFF CONFIRMED
[2017-04-29 19:01] LABS: BLOOD, URINE NEG (NEG); COMMENT (UR) CULT NOT INDICATED; CULTURE IF INDICATED CULT NOT INDICATED; GLUCOSE,URINE NEG (NEG); KETONE, URINE NEG (NEG); MUCUS URINE FEW /lpf (OCC); NITRITE,URINE NEG (NEG); URINE COLOR YELLOW (YELLW/STRAW)
[2017-04-29 19:19] LABS: AMPHETAMINE, URINE NEG (NEG); BARBITURATES, URINE NEG (NEG); COCAINE, URINE NEG (NEG)
[2017-04-29] MEDS ORDERED: RESP: BUDESONIDE 0.5 MG/2 ML NEB NEB ONE (20:00)
[2017-04-29 20:30] VITALS: PULSE 80; RESP 24; O2SAT 93; O2SAT 94
[2017-04-29] MEDS: RESP: ALBUTEROL 2.5 MG/IPRATROPIUM 0.5 MG NEB (SCH) INH ×2 (20:30→20:31)
[2017-04-29 21:37] VITALS: BP 100/54; PULSE 75; RESP 16; O2SAT 95
[2017-04-30 02:35] VITALS: BP 94/55; PULSE 69; RESP 18; O2SAT 95
[2017-04-30 03:36] VITALS: BP 100/78; PULSE 80; RESP 18; O2SAT 99
--- NOTE | 2017-04-30 16:19 | PD.PSY.CON ---
Provisional Diagnosis Admission Date History of Present Illness Service Psychiatry Consult Requested By Primary Care Physician Unknown HPI The patient is a 66-year-old man, domiciled with roommate in [facility], unemployed, psychiatric history of depression, no psychotic hospitalizations, alcohol use disorder, no previous suicidal attempts, presenting to the emergency department for evaluation of suicidal ideations. as per ER Patient is accompanied by his roommate who states patient has been making suicidal statements regarding hanging himself and cutting his wrists. Patient reports not wanting to live anymore. He reports that more of his family has been dying and he's been depressed for several years. Roommate states the patient gets confused easily, she states this is since he had a trip and fall 3 weeks ago that resulted in a brain bleed. Patient has a history of alcoholism, he states he hasn't had any alcohol since Friday. He reports chronic back pain for which she takes Lortab and/or morphine but does not completely alleviate his pain. He denies any visual auditory hallucinations. He denies any previous suicide attempts. There has been no new injury or falls. Ever, today a psychiatric evaluation patient denies depressive symptoms, he says that he has been frustrated due to disagreement with roommate. But he doesn't feel that he wants to or kill himself. Review of Systems Constitutional: DENIES: Diaphoretic episodes, Fatigue, Fever, Weight gain, Weight loss, Chills, Dizziness, Change in appetite, Night Sweats Endocrine: DENIES: Heat/cold intolerance, Polydipsia, Polyuria, Polyphagia Eyes: DENIES: Blurred vision, Diplopia, Eye inflammation, Eye pain, Vision loss , Photosensitivity, Double Vision Ears, nose, mouth, throat: DENIES: Tinnitus, Hearing loss, Vertigo, Nasal discharge, Oral lesions, Throat pain, Hoarseness, Ear Pain, Running Nose, Epistaxis, Sinus Pain, Toothache, Odynophagia Respiratory: DENIES: Apneas, Cough, Snoring, Wheezing, Hemoptysis, Sputum production, Shortness of breath Cardiovascular: DENIES: Chest pain, Palpitations, Syncope, Dyspnea on Exertion , PND, Lower Extremity Edema, Orthopnea, Claudication Gastrointestinal: DENIES: Abdominal pain, Black stools, Bloody stools, Constipation, Diarrhea, Nausea, Vomiting, Difficulty Swallowing, Anorexia Musculoskeletal: DENIES: Joint pain, Muscle aches, Stiffness, Joint Swelling, Back pain, Neck pain Integumentary: DENIES: Abnormal pigmentation, Nail changes, Pruritus, Rash Hematologic/lymphatic: DENIES: Bruising, Lymphadenopathy Immunologic/allergic: DENIES: Eczema, Urticaria Neurologic: DENIES: Abnormal gait, Headache, Localized weakness, Paresthesias, Seizures, Speech Problems, Tremor, Poor Balance Psychiatric: DENIES: Anxiety, Confusion, Mood changes, Depression, Hallucinations, Agitation, Suicidal Ideation, Homicidal Ideation, Delusions Past Family Social History Coded Allergies: Sulfa (Verified Allergy, Severe, UNKNOWN - CHILD, 04/29/17) Active Scripts Oxygen (O2) Device #2 Liter Boris.canula Continuous Oxygen Concentrator Portable Gaseous 2 L/min via Nasal Canula Continuous For 99 months Prov:Andrez Broussard MD 04/08/17 Thiamine HCl (Gnp Vitamin B-1)100 Mg Dpx015 Mg PO DAILY #30 TAB Prov:Andrez Broussard MD 04/07/17 Chlordiazepoxide HCl 25 Mg [id number] Mg PO BID #7 MG Take 1 pill twice a day for 2 days then 1 pill daily for 3 days. Do not combine with alcohol. Prov:Andrez Broussard MD 04/07/17 Reported Medications Hydrocodone-Acetaminophen (Lortab)5-325 Mg Tab1 Tab PO Q4H PRN (PAIN) Ref 0 04/23/17 Potassium Chloride ER 10 Meq Cap10 Meq PO BID #60 CAP Ref 0 04/23/17 Insulin Glargine Inj (Lantus Inj)1,000 Unit/10 Ml Vial1 Units SQ HS Ref 0 04/23/17 Metformin ER (Glucophage XR)500 Mg Vuoad133 Mg PO BID #30 TAB Ref 0 With evening meal 04/02/17 Physical Exam Vital Signs Vital Signs Date Time Temp Pulse Resp B/P Pulse Ox O2 Delivery O2 Flow Rate FiO2 04/30/17 03:36 80 18 100/78 99 Nasal Cannula 2 04/29/17 14:27 97.9 Lab Results Labs Laboratory Tests Test 04/29/17 04/29/17 04/29/17 16:26 16:27 18:40 White Blood Count 2.8 TH/MM3 Red Blood Count 4.44 MIL/MM3 Hemoglobin 14.1 GM/DL Hematocrit 42.1 % Mean Corpuscular Volume 94.8 FL Mean Corpuscular Hemoglobin 31.7 PG Mean Corpuscular Hemoglobin 33.4 % Concent Red Cell Distribution Width 16.4 % Platelet Count 101 TH/MM3 Mean Platelet Volume 7.7 FL Neutrophils (%) (Auto) 51.2 % Lymphocytes (%) (Auto) 36.3 % Monocytes (%) (Auto) 5.5 % Eosinophils (%) (Auto) 5.8 % Basophils (%) (Auto) 1.2 % Neutrophils # (Auto) 1.5 TH/MM3 Lymphocytes # (Auto) 1.0 TH/MM3 Monocytes # (Auto) 0.2 TH/MM3 Eosinophils # (Auto) 0.2 TH/MM3 Basophils # (Auto) 0.0 TH/MM3 CBC Comment AUTO DIFF Differential Comment AUTO DIFF CONFIRMED Platelet Estimate LOW Platelet Morphology Comment NORMAL Sodium Level 140 MEQ/L Potassium Level 5.0 MEQ/L Chloride Level 103 MEQ/L Carbon Dioxide Level 29.5 MEQ/L Anion Gap 8 MEQ/L Blood Urea Nitrogen 10 MG/DL Creatinine 0.82 MG/DL Estimat Glomerular Filtration 93 ML/MIN Rate Random Glucose 102 MG/DL Calcium Level 8.9 MG/DL Total Bilirubin 0.7 MG/DL Aspartate Amino Transf 45 U/L (AST/SGOT) Alanine Aminotransferase 13 U/L (ALT/SGPT) Alkaline Phosphatase 65 U/L Total Protein 8.0 GM/DL Albumin 3.5 GM/DL Thyroid Stimulating Hormone 0.669 uIU/ML 3rd Gen Salicylates Level LESS THAN 1.7 MG/DL Acetaminophen Level LESS THAN 2.0 MCG/ML Ethyl Alcohol Level LESS THAN 3 MG/DL Ammonia 35 MCMOL/L Urine Color YELLOW Urine Turbidity CLEAR Urine pH 6.0 Urine Specific Lucas 1.018 Urine Protein TRACE mg/dL Urine Glucose (UA) NEG mg/dL Urine Ketones NEG mg/dL Urine Occult Blood NEG Urine Nitrite NEG Urine Bilirubin NEG Urine Urobilinogen 2.0 MG/DL Urine Leukocyte Esterase NEG Urine WBC 3 /hpf Urine Mucus FEW /lpf Microscopic Urinalysis Comment CULT NOT INDICATED Urine Opiates Screen NEG Urine Barbiturates Screen NEG Urine Amphetamines Screen NEG Urine Benzodiazepines Screen POS Urine Cocaine Screen NEG Urine Cannabinoids Screen NEG Mental Status Examination Speech: Unremarkable Orientation: x3 Memory: Unremarkable Thought Process: Logical, Goal Directed, Linear Thought Content: Unremarkable Hallucination Type: None Suicidal Ideation: No Previous Suicide Attempts: No Homicidal Ideation: No Previous Homicide Attempts: No Judgment: WNL Affect: Good Mood: Appropriate Motor Activity: Normal gait Assessment & Plan Problem List: (1) Alcohol abuse with alcohol-induced mood disorder ICD Code: F10.14 (2) Adjustment disorder with depressed mood Assessment & Plan: On Psychiatric evaluation today patient doesn't have any symptomatology that requires immediate psychiatric intervention. Patient denies suicidal and homicidal ideation. Blake act will be lifted. ICD Code: F43.21 Assessment & Plan Estimated LOS: Jose Luis Fortune MD Apr 30, 2017 16:19
== END 2017-04-30 15:43 | disposition home or self-care (01) ==
LOC: NEPD 14:25
DX: J44.9 Chronic obstructive pulmonary disease, unspecified (principal); R45.851 Suicidal ideations; M13.80 Other specified arthritis, unspecified site; E11.9 Type 2 diabetes mellitus without complications; B19.20 Unspecified viral hepatitis C without hepatic coma; I25.2 Old myocardial infarction; Z79.899 Other long term (current) drug therapy
CPT/HCPCS: 71010; 80053; 80307; 81001; 82140; 84443; 85025; 94640; 94664; 99284; J7626

== ENCOUNTER 2017-08-07 03:35 | Inpatient (IN) | payer OTHER, MEDICARE ==
[2017-08-07] VITALS (18 sets, daily range): BP systolic 104–151; BP diastolic 51–93; PULSE 73–97; RESP 16–32; TEMP 97.3–98.2; O2SAT 88–96
[~2017-08-07] VITALS: Ht 172.7 cm; Wt 71.6 kg
[~2017-08-07 03:35] MED LIST changes: -GNP100TA3 PO; +THIA100 PO
--- NOTE | 2017-08-07 04:10 | PD ---
HPI . Alcohol intoxication Chief Complaint: Alcohol/Drug Intoxication Time Seen by Provider: 03:56 Travel History International Travel<30 days: No Contact w/Intl Traveler<30days: No Traveled to known affect area: No History of Present Illness HPI This patient is brought to us via [facility] after passing out at a local bar. The patient has no complaints. History is limited by his level of intoxication. 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) Hypertension: No Immune Disorder: No Implanted Vascular Access Dvce: No Musculoskeletal: No Neurologic: No Psychiatric: No Reproductive: No Respiratory: No Immunizations Current: Yes Migraines: No Myocardial Infarction: Yes Pneumonia: Yes Radiation Therapy: No Seizures: No Sickle Cell Disease: No Sleep Apnea: No Thyroid Disease: No Ulcer: No Tetanus Vaccination: < 5 Years Influenza Vaccination: Yes Past Surgical History Abdominal Surgery: No AICD: No Arteriovenous Shunt: No Cardiac Surgery: No Ear Surgery: No Endocrine Surgery: No Eye Surgery: No Genitourinary Surgery: Yes (Vasectomy) Gynecologic Surgery: No Insulin Pump: No Joint Replacement: No Neurologic Surgery: No Oral Surgery: Yes (TONSILLECTOMY) Pacemaker: No Thoracic Surgery: No Tonsillectomy: Yes Other Surgery: Yes (VASECTOMY AND CIRCUMSISION) Social History Alcohol Use: Yes (ALCOHOLIC PER FAMILY) Tobacco Use: Yes (2ppd) Substance Use: Yes (HX OF ALCOHOLISM) Allergies-Medications (Allergen,Severity, Reaction): Coded Allergies: Sulfa (Sulfonamide Antibiotics) (Unverified Allergy, Severe, UNKNOWN - CHILD, 08/07/17) Reported Meds & Prescriptions Reported Meds & Active Scripts Active Oxygen (O2) Device 2 Liter LIZA.CANULA CONTINUOUS Oxygen Concentrator Portable Gaseous 2 L/min via Nasal Canula Continuous For 99 months Gnp Vitamin B-1 (Thiamine HCl) 100 Mg Tab 100 Mg PO DAILY Chlordiazepoxide HCl 25 Mg Capsule 25 Mg PO BID Take 1 pill twice a day for 2 days then 1 pill daily for 3 days. Do not combine with alcohol. Reported Lortab (Hydrocodone-Acetaminophen) 5-325 Mg Tab 1 Tab PO Q4H PRN Potassium Chloride ER (Potassium Chloride) 10 Meq Cap 10 Meq PO BID Lantus Inj (Insulin Glargine) 1,000 Unit/10 Ml Vial 1 Units SQ HS Glucophage XR (Metformin HCl) 500 Mg Genet 500 Mg PO BID With evening meal Review of Systems ROS Limitations: Intoxication Physical Exam Narrative GENERAL: The patient falls asleep in conversation. He is arousable. He smells of alcohol. SKIN: warm/dry. HEAD: Normocephalic. Atraumatic. EYES: Pupils equal and round. No scleral icterus. No injection or drainage. ENT: No nasal bleeding or discharge. Mucous membranes pink and moist. NECK: Trachea midline. Full range of motion without pain.. CARDIOVASCULAR: Regular rate and rhythm. Heart sounds normal. RESPIRATORY: No accessory muscle use. Clear to auscultation. Breath sounds equal bilaterally. His sats are low on room air. GASTROINTESTINAL: Abdomen soft. Nontender. Bowel sounds present. Nondistended. MUSCULOSKELETAL: No obvious deformities. NEUROLOGICAL: Sleepy but arousable. No cranial nerve deficits. Moving all 4 extremities equally. PSYCHIATRIC: Unable to assess. Data Data Last Documented VS Vital Signs Date Time Temp Pulse Resp B/P (MAP) Pulse Ox O2 Delivery O2 Flow Rate FiO2 08/07/17 06:04 73 22 116/67 (83) 96 Nasal Cannula 3.00 08/07/17 03:[address] Brain W/O Iv Contrast(Rout) (08/07/17 04:06) Chest, Single Ap (08/07/17 04:06) Basic Metabolic Panel (Bmp) (08/07/17 04:27) Complete Blood Count With Diff (08/07/17 04:27) Lactic Acid Sepsis Protocol (08/07/17 04:27) Blood Culture (08/07/17 04:27) Sodium Chloride 0.9% Flush (Ns Flush) (08/07/17 04:30) B-Type Natriuretic Peptide (08/07/17 04:28) Alcohol (Ethanol) (08/07/17 04:27) Potassium Chloride (Kcl) (08/07/17 06:00) Magnesium Oxide (Mag-Ox) (08/07/17 06:00) Magnesium (Mg) (08/07/17 04:40) Prothrombin Time / Inr (Pt) (08/07/17 06:25) Act Partial Throm Time (Ptt) (08/07/17 06:25) Labs Laboratory Tests Test 08/07/17 04:40 White Blood Count 4.0 TH/MM3 Red Blood Count 4.77 MIL/MM3 Hemoglobin 15.0 GM/DL Hematocrit 45.4 % Mean Corpuscular Volume 95.0 FL Mean Corpuscular Hemoglobin 31.4 PG Mean Corpuscular Hemoglobin Concent 33.1 % Red Cell Distribution Width 17.0 % Platelet Count 47 TH/MM3 Mean Platelet Volume 8.2 FL Neutrophils (%) (Auto) 63.7 % Lymphocytes (%) (Auto) 24.0 % Monocytes (%) (Auto) 10.2 % Eosinophils (%) (Auto) 1.2 % Basophils (%) (Auto) 0.9 % Neutrophils # (Auto) 2.6 TH/MM3 Lymphocytes # (Auto) 1.0 TH/MM3 Monocytes # (Auto) 0.4 TH/MM3 Eosinophils # (Auto) 0.0 TH/MM3 Basophils # (Auto) 0.0 TH/MM3 CBC Comment AUTO DIFF Differential Total Cells Counted 100 Neutrophils % (Manual) 59 % Band Neutrophils % 10 % Lymphocytes % 19 % Monocytes % 6 % Eosinophils % 2 % Basophils % 2 % Neutrophils # (Manual) 2.8 TH/MM3 Myelocytes 1 % Promyelocytes 1 % Differential Comment FINAL DIFF MANUAL Atypical Lymphocytes % Toxic Vacuolation PRESENT Platelet Estimate LOW Platelet Morphology Comment NORMAL Red Cell Morphology Comment NORMAL Blood Urea Nitrogen 13 MG/DL Creatinine 0.63 MG/DL Random Glucose 239 MG/DL Calcium Level 7.8 MG/DL Magnesium Level 2.2 MG/DL Sodium Level 137 MEQ/L Potassium Level 3.1 MEQ/L Chloride Level 101 MEQ/L Carbon Dioxide Level 24.9 MEQ/L Anion Gap 11 MEQ/L Estimat Glomerular Filtration Rate 127 ML/MIN Lactic Acid Level 2.2 mmol/L B-Type Natriuretic Peptide 10 PG/ML Ethyl Alcohol Level 218 MG/DL MDM Medical Decision Making Medical Screen Exam Complete: Yes Emergency Medical Condition: Yes Medical Record Reviewed: Yes (the patient has been seen here many times for alcohol intoxication. However, he has had a previous brain bleed. Also, his oxygen saturation is usually in the mid 90s.) Differential Diagnosis Differential diagnosis of altered mental status includes but is not limited to infection, electrolyte abnormality, neurological event, intoxication Narrative Course This patient presents to us probably acutely intoxicated. He fell asleep at a bar. However, he is certainly at risk for head injury. He also has low sats. He is obviously a smoker as he has cigarettes on his person. I have ordered an alcohol level, brain CT and chest x-ray. CXR>>Mild perihilar and basilar interstitial prominence is noted. Cardiac contour is grossly stable. I have ordered a CBC, blood cultures, lactic acid and BNP to help sort out this interstitial prominence. CT head: There is right-sided subdural hematoma with very thin accumulation over majority of the convexity. Moderate focal accumulation in the high convexity right parietal region with a thickness of about 18 mm. There small hemorrhages in the anterior temporal regions bilaterally. There is no evidence of significant brain shift. There is no mass and nothing to suggest acute infarction. The calvarium is intact. CBC & BMP Diagram 08/07/17 04:40 Calcium Level 7.8 L Lactic acid 2.2 BNP 10 Alcohol level 218 I'll replace his potassium orally. Physician Communication Physician Communication Dr. Duque requests admit to [facility] to the pelts skinner. Dr. Case will admit. Diagnosis Primary Impression: SDH (subdural hematoma) Additional Impressions: Alcohol intoxication Qualified Codes: F10.929 - Alcohol use, unspecified with intoxication, unspecified Hypokalemia Admitting Information Admitting Physician Requests: Admit Condition: Stable Tamanna Wallace MD Aug 07, 2017 04:10
--- NOTE | 2017-08-07 04:24 | RADRPT ---
EXAM DATE/TIME: 08/07/2017 04:20 [facility] COMPARISON: CHEST SINGLE AP, April 29, 2017, 16:33. INDICATIONS : Short of breath. ETOH. MEDICAL HISTORY : Myocardial infarction. Hepatitis C. SURGICAL HISTORY : None. ENCOUNTER: Initial ACUITY: 1 day PAIN SCORE: Non-responsive. LOCATION: Bilateral chest FINDINGS: Mild perihilar and basilar interstitial prominence is noted. Cardiac contour is grossly stable. CONCLUSION: Mild interstitial prominence Rakesh Gandhi MD on August 07, 2017 at 4:22 Board Certified Radiologist. This report was verified electronically.
[2017-08-07] MEDS ORDERED: SODIUM CHLORIDE 0.9% FLUSH 10 ML FLUSH IVF PRN (04:30)
--- NOTE | 2017-08-07 04:42 | RADRPT ---
EXAM DATE/TIME: 08/07/2017 04:17 [facility] COMPARISON: CT BRAIN W/O CONTRAST, April 23, 2017, 13:21. INDICATIONS : Altered mental status. ETOH. RADIATION DOSE: 56.35 CTDIvol (mGy) MEDICAL HISTORY : Hepatitis C. Myocardial infarction. Diabetes. SURGICAL HISTORY : Fractured skull. ENCOUNTER: Initial ACUITY: 1 day PAIN SCALE: Non-responsive LOCATION: cranial TECHNIQUE: Multiple contiguous axial images were obtained of the head. Using automated exposure control and adj ustment of the mA and/or kV according to patient size, radiation dose was kept as low as reasonably a chievable to obtain optimal diagnostic quality images. DICOM format image data is available electro nically for review and comparison. FINDINGS: There is right-sided subdural hematoma with very thin accumulation over majority of the convexity. Mo derate focal accumulation in the high convexity right parietal region with a thickness of about 18 mm . There small hemorrhages in the anterior temporal regions bilaterally. There is no evidence of signi ficant brain shift. There is no mass and nothing to suggest acute infarction. The calvarium is intact . CONCLUSION: Right-sided subdural hematoma and bilateral anterior temporal hemorrhages. Rakesh Gandhi MD on August 07, 2017 at 4:36 Board Certified Radiologist. This report was verified electronically.
[2017-08-07 04:52] LABS: AUTOMATED NEUTROPHIL # 2.6 TH/MM3 (1.8-7.7); BASOPHIL % 0.9 % (0.0-2.0); EOSINOPHIL % 1.2 % (0.0-4.0); HEMATOCRIT 45.4 % (39.0-51.0); MEAN CORPUSCULAR HEMOGLOBIN 31.4 PG (27.0-34.0); MEAN CORPUSCULAR HGB CONC 33.1 % (32.0-36.0); MONO % 10.2 % (0.0-8.0); NEUT % 63.7 % (16.0-70.0); PLATELET COUNT 47 TH/MM3 (150-450); RED BLOOD COUNT 4.77 MIL/MM3 (4.50-5.90)
[2017-08-07 04:55] LABS: HEMO FLAGS AUTO DIFF
[2017-08-07 05:18] LABS: BICARBONATE 24.9 MEQ/L (21.0-32.0); POTASSIUM 3.1 MEQ/L (3.5-5.1)
[2017-08-07 05:51] LABS: BANDS 10 % (0-6); BASOPHILS 2 % (0-2); EOSINOPHILS 2 % (0-4); MYELOCYTES 1 % (0-0); NEUTROPHIL # MANUAL DIFF 2.8 TH/MM3 (1.8-7.7); PLATELET ESTIMATE SMEAR LOW (NORMAL); PLATELET MORPHOLOGY NORMAL (NORMAL); POLYS (SEG NEUTROPHILS) 59 % (16-70); PROMYELOCYTES 1 % (0-0); SCAN/DIFF FINAL DIFF MANUAL; WBC DIFF SAMPLE 100
[2017-08-07 05:52] LABS: TOXIC VACUOLATION PRESENT (NONE SEEN)
[2017-08-07] MEDS ORDERED: MAGNESIUM OXIDE 400 MG TAB PO ONE (06:00)
[2017-08-07] MEDS ORDERED: POTASSIUM CHLORIDE 20 MEQ CONTROLLED RELEASE TAB PO ONE (06:00)
[2017-08-07 06:15] LABS: MAGNESIUM 2.2 MG/DL (1.5-2.5)
[2017-08-07 06:44] LABS: LACTIC ACID GHOST NOT REPORTABLE
[2017-08-07] MEDS ORDERED: MAGNESIUM SULFATE INJ 2 GM in SODIUM CHLORIDE 0.9% INJ 96 ML IV PRN (07:00)
[2017-08-07] MEDS ORDERED: GLUCAGON 1 MG/ML VIAL IM/SQ PRN (07:00)
[2017-08-07] MEDS ORDERED: SENNOSIDES 8.6 MG TAB PO PRN (07:00)
[2017-08-07] MEDS ORDERED: POTASSIUM PHOSPHATE MONOBASIC 500 MG TAB PO PRN (07:00)
[2017-08-07] MEDS ORDERED: MAGNESIUM HYDROXIDE SUSP 30 ML CUP PO PRN (07:00)
[2017-08-07] MEDS ORDERED: POTASSIUM CHLOR 40 MEQ PREMIX 100 ML IV PRN ×2 (07:00)
[2017-08-07] MEDS ORDERED: POTASSIUM CHLORIDE 25 MEQ EFFERVESCENT TAB PO PRN (07:00)
[2017-08-07] MEDS ORDERED: MAGNESIUM OXIDE 400 MG TAB PO PRN (07:00)
[2017-08-07] MEDS ORDERED: BISACODYL 10 MG SUPP RECTAL PRN (07:00)
[2017-08-07] MEDS ORDERED: LACTULOSE SYRUP 20 GM/30 ML CUP PO PRN (07:00)
[2017-08-07] MEDS ORDERED: MAGNESIUM SULFATE INJ 4 GM in SODIUM CHLORIDE 0.9% INJ 92 ML IV PRN (07:00)
[2017-08-07] MEDS ORDERED: SODIUM PHOSPHATE INJ 30 MMOL in SODIUM CHLOR 0.9% 250 ML INJ 240 ML IV PRN (07:00)
[2017-08-07] MEDS ORDERED: RESP: ALBUTEROL 2.5 MG/IPRATROPIUM 0.5 MG NEB (PRN) INH (07:00)
[2017-08-07] MEDS ORDERED: POTASSIUM PHOSPHATE MONOBASIC 500 MG TAB PO/TUBE PRN (07:00)
[2017-08-07] MEDS ORDERED: MISCELLANEOUS NURSING INFORMATION XX SCH (07:00)
[2017-08-07] MEDS ORDERED: DEXTROSE 50% IN WATER 50 ML VIAL(D50) IV PRN (07:00)
[2017-08-07] MEDS ORDERED: SODIUM CHLORIDE 0.9% FLUSH 10 ML FLUSH IV FLUSH PRN (07:00)
[2017-08-07] MEDS ORDERED: ONDANSETRON HCL 4 MG/2 ML VIAL IV PUSH PRN (07:00)
[2017-08-07] MEDS ORDERED: POTASSIUM CHLOR 20 MEQ PREMIX 100 ML IV PRN ×2 (07:00)
[2017-08-07] MEDS ORDERED: POTASSIUM PHOSPHATE INJ 30 MMOL in SODIUM CHLOR 0.9% 250 ML INJ 250 ML IV PRN (07:00)
[2017-08-07] MEDS ORDERED: CHLORHEXIDINE GLUCONATE 2 % 1 PACK (2 CLOTHS) TOP PRN (07:00)
[2017-08-07 07:03] LABS: APTT (PATIENT) 27.1 SEC (24.3-30.1); INTERNATIONAL NORMALIZED RATIO 1.1 RATIO; PROTHROMBIN TIME - PATIENT 12.6 SEC (9.8-11.6)
[2017-08-07] MEDS: NS + KCL 20 MEQ INJ 1,000 ML IV SCH ×2 (08:36→22:45)
[2017-08-07] MEDS: INSULIN ASPART SUPPLEMENTAL SCALE SQ SCH ×3 (08:36→17:05)
[2017-08-07] MEDS: DOCUSATE SODIUM 50 MG/SENNA 8.6 MG TAB PO SCH ×2 (09:00→19:54)
[2017-08-07] MEDS: SODIUM CHLORIDE 0.9% FLUSH 10 ML FLUSH IV FLUSH SCH ×2 (09:00→19:54)
[2017-08-07] MEDS: LEVOFLOXACIN 750 MG PREMIX INJ 150 ML IV SCH (09:41)
[2017-08-07] MEDS: metroNIDAZOLE 500 MG INJ 100 ML IV SCH ×2 (09:41→17:07)
[2017-08-07] MEDS: FAMOTIDINE 20 MG/2 ML VIAL IV PUSH SCH ×2 (09:41→19:53)
--- NOTE | 2017-08-07 09:42 | HHI.HP ---
HPI Service Critical Care Medicine Primary Care Physician Chen Hamilton MD Admission Diagnosis SDH, acute alcohol intoxication/chronic alcohol abuse Diagnosis: Chief Complaint: Altered mental status Travel History International Travel<30 Days: No Contact w/Intl Traveler <30 Da: No Traveled to Known Affected Are: No History of Present Illness HPI 66-year-old male who was brought to the ER by [facility] after passing out at a local bar. There was limited history available in view of altered mental status. Patient was found to have subdural hematoma and bitemporal small bleeds /contusions. Dr. Duque from neurosurgery was contacted by ER physician and requested patient be admitted by critical care medicine service to the ICU with consulted for neurosurgery. Patient was accepted for admission by critical care medicine service. Patient did have an elevated EtOH level. When I evaluated the patient in the ER he was drowsy, easily arousable, new he was at the hospital however otherwise was confused and disoriented. He could not tell me how he was brought to the hospital. History was obtained by reviewing records and discussion with ER physician and nursing staff. 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) Hypertension: No Immune Disorder: No Implanted Vascular Access Dvce: No Musculoskeletal: No Neurologic: No Psychiatric: No Reproductive: No Respiratory: No Immunizations Current: Yes Migraines: No Myocardial Infarction: Yes Pneumonia: Yes Radiation Therapy: No Seizures: No Sickle Cell Disease: No Sleep Apnea: No Thyroid Disease: No Ulcer: No Tetanus Vaccination: < 5 Years Influenza Vaccination: Yes Past Surgical History Abdominal Surgery: No AICD: No Arteriovenous Shunt: No Cardiac Surgery: No Ear Surgery: No Endocrine Surgery: No Eye Surgery: No Genitourinary Surgery: Yes (Vasectomy) Gynecologic Surgery: No Insulin Pump: No Joint Replacement: No Neurologic Surgery: No Oral Surgery: Yes (TONSILLECTOMY) Pacemaker: No Thoracic Surgery: No Tonsillectomy: Yes Other Surgery: Yes (VASECTOMY AND CIRCUMSISION) Social History Alcohol Use: Yes (ALCOHOLIC PER FAMILY) Tobacco Use: Yes (2ppd) Substance Use: Yes (HX OF ALCOHOLISM) Allergies-Medications Allergies-Medications (Allergen,Severity, Reaction): Coded Allergies: Sulfa (Sulfonamide Antibiotics) (Unverified Allergy, Severe, UNKNOWN - CHILD, 08/07/17) Reported Meds & Prescriptions Reported Meds & Active Scripts Active Oxygen (O2) Device 2 Liter LIZA.CANULA CONTINUOUS Oxygen Concentrator Portable Gaseous 2 L/min via Nasal Canula Continuous For 99 months Gnp Vitamin B-1 (Thiamine HCl) 100 Mg Tab 100 Mg PO DAILY Chlordiazepoxide HCl 25 Mg Capsule 25 Mg PO BID Take 1 pill twice a day for 2 days then 1 pill daily for 3 days. Do not combine with alcohol. Reported Lortab (Hydrocodone-Acetaminophen) 5-325 Mg Tab 1 Tab PO Q4H PRN Potassium Chloride ER (Potassium Chloride) 10 Meq Cap 10 Meq PO BID Lantus Inj (Insulin Glargine) 1,000 Unit/10 Ml Vial 1 Units SQ HS Glucophage XR (Metformin HCl) 500 Mg Genet 500 Mg PO BID With evening meal ROS Review of Systems ROS Limitations: Intoxication, encephalopathy Physical Exam Vital Signs Vital Signs Date Time Temp Pulse Resp B/P (MAP) Pulse Ox O2 Delivery O2 Flow Rate FiO2 08/07/17 07:19 97.8 77 23 104/51 (68) 94 Nasal Cannula 3.00 08/07/17 07:18 95 Nasal Cannula 3.00 08/07/17 06:04 73 22 116/67 (83) 96 Nasal Cannula 3.00 08/07/17 04:52 89 18 115/60 (78) 96 Nasal Cannula 3.00 08/07/17 03:51 96 Nasal Cannula 3.00 08/07/17 03:49 98.2 87 16 119/70 (86) 88 Physical Exam Physical Exam Physical Exam Narrative GENERAL: The patient falls asleep in conversation. He is arousable. SKIN: warm/dry. HEAD: Normocephalic. Atraumatic. EYES: Pupils equal and round. No scleral icterus. No injection or drainage. ENT: No nasal bleeding or discharge. Mucous membranes pink and moist. NECK: Trachea midline. Full range of motion without pain.. CARDIOVASCULAR: Regular rate and rhythm. Heart sounds normal. RESPIRATORY: No accessory muscle use. Clear to auscultation. Breath sounds equal bilaterally. His sats are low on room air. GASTROINTESTINAL: Abdomen soft. Nontender. Bowel sounds present. Nondistended. MUSCULOSKELETAL: No obvious deformities. NEUROLOGICAL: Sleepy but arousable. Knows he is at hospital however otherwise confused and disoriented. No cranial nerve deficits. Moving all 4 extremities equally. PSYCHIATRIC: Unable to assess. Laboratory Laboratory Tests Test 08/07/17 04:40 08/07/17 06:35 White Blood Count 4.0 Red Blood Count 4.77 Hemoglobin 15.0 Hematocrit 45.4 Mean Corpuscular Volume 95.0 Mean Corpuscular Hemoglobin 31.4 Mean Corpuscular Hemoglobin Concent 33.1 Red Cell Distribution Width 17.0 Platelet Count 47 Mean Platelet Volume 8.2 Neutrophils (%) (Auto) 63.7 Lymphocytes (%) (Auto) 24.0 Monocytes (%) (Auto) 10.2 Eosinophils (%) (Auto) 1.2 Basophils (%) (Auto) 0.9 Neutrophils # (Auto) 2.6 Lymphocytes # (Auto) 1.0 Monocytes # (Auto) 0.4 Eosinophils # (Auto) 0.0 Basophils # (Auto) 0.0 CBC Comment AUTO DIFF Differential Total Cells Counted 100 Neutrophils % (Manual) 59 Band Neutrophils % 10 Lymphocytes % 19 Monocytes % 6 Eosinophils % 2 Basophils % 2 Neutrophils # (Manual) 2.8 Myelocytes 1 Promyelocytes 1 Differential Comment FINAL DIFF MANUAL Atypical Lymphocytes Toxic Vacuolation PRESENT Platelet Estimate LOW Platelet Morphology Comment NORMAL Red Cell Morphology Comment NORMAL Blood Urea Nitrogen 13 Creatinine 0.63 Random Glucose 239 Calcium Level 7.8 Magnesium Level 2.2 Sodium Level 137 Potassium Level 3.1 Chloride Level 101 Carbon Dioxide Level 24.9 Anion Gap 11 Estimat Glomerular Filtration Rate 127 Lactic Acid Level 2.2 2.1 B-Type Natriuretic Peptide 10 Ethyl Alcohol Level 218 Prothrombin Time 12.6 Prothromb Time International Ratio 1.1 Activated Partial Thromboplast Time 27.1 Date/Time Source Procedure Growth Status 08/07/17 04:40 Blood Peripheral Aerobic Blood Culture Pending Received 08/07/17 04:40 Blood Peripheral Anaerobic Blood Culture Pending Received Result Diagram: 08/07/1743908/07/[address]: Right parietal subdural hematoma, bilateral temporal small bleeds versus contusions. Chest x-ray: Right lower lobe infiltrate Caprini VTE Risk Assessment Caprini VTE Risk Assessment: Mod/High Risk (score >= 2) Caprini Risk Assessment Model Point Value = 1 Point Value = 2 Point Value = 3 Point Value = 5 Age 41-60 Minor surgery BMI > 25 kg/m2 Swollen legs Varicose veins or History of unexplained or recurrent spontaneous Oral contraceptives or hormone replacement Sepsis (< 1 month) Serious lung disease, including pneumonia (< 1 month) Abnormal pulmonary function Acute myocardial infarction Congestive heart failure (< 1 month) History of inflammatory bowel disease Medical patient at bed rest Age 61-74 Arthroscopic surgery Major open surgery (> 45 min) Laparoscopic surgery (> 45 min) Malignancy Confined to bed (> 72 hours) Immobilizing plaster cast Central venous access Age >= 75 History of VTE Family history of VTE Factor V Leiden Prothrombin [id number] Lupus anticoagulant Anticardiolipin antibodies Elevated serum homocysteine Heparin-induced thrombocytopenia Other congenital or acquired thrombophilia Stroke (< 1 month) Elective arthroplasty Hip, pelvis, or leg fracture Acute spinal cord injury (< 1 month) Prophylaxis Regimen Total Risk Factor Score Risk Level Prophylaxis Regimen 0-1 Low Early ambulation 2 Moderate Order ONE of the following: *Sequential Compression Device (SCD) *Heparin 5000 units SQ BID 3-4 Higher Order ONE of the following medications: *Heparin 5000 units SQ TID *Enoxaparin/Lovenox 40 mg SQ daily (WT < 150 kg, CrCl > 30 mL/min) *Enoxaparin/Lovenox 30 mg SQ daily (WT < 150 kg, CrCl > 10-29 mL/min) *Enoxaparin/Lovenox 30 mg SQ BID (WT < 150 kg, CrCl > 30 mL/min) AND/OR *Sequential Compression Device (SCD) 5 or more Highest Order ONE of the following medications: *Heparin 5000 units SQ TID (Preferred with Epidurals) *Enoxaparin/Lovenox 40 mg SQ daily (WT < 150 kg, CrCl > 30 mL/min) *Enoxaparin/Lovenox 30 mg SQ daily (WT < 150 kg, CrCl > 10-29 mL/min) *Enoxaparin/Lovenox 30 mg SQ BID (WT < 150 kg, CrCl > 30 mL/min) AND *Sequential Compression Device (SCD) Assessment and Plan Assessment and Plan 66-year-old male with: Encephalopathy Alcohol intoxication Subdural hematoma Diabetes mellitus Thrombocytopenia Hepatitis C Plan: Neuro: Follow neuro status. Neurosurgery consult requested. Neurosurgery to decide if patient needs decompression and evacuation of subdural hematoma. We' ll transfuse 1 unit pheresed platelets in view of thrombocytopenia which is probably related to his alcohol abuse. By mouth for gastric acid/MVI/thiamine starting tomorrow. Ativan as needed per alcohol withdrawal protocol ordered as patient is at high risk for going into alcohol withdrawal. Cardiovascular: Watch for hypotension. Labetalol when necessary to keep SBP less than 140 mmHg Pulmonary: Supplemental O2, bronchodilators. Currently protecting airway. GI/liver: Nothing by mouth till improvement in neurologic status. Renal/: IV hydration, follow intake output, monitor and replete electrolytes, follow BUN/creatinine. ID: Blood cultures and UA urine cultures ordered. Check urine for strep pneumo and Legionella antigen. Check functions IND. Empiric antibiotic coverage with Levaquin and Flagyl IV for pneumonia. Endocrine: Sliding scale insulin for glycemic control. When patient advance his by mouth diet will add Levemir. Heme: Follow CBC and coags. Prophylaxis: Pepcid/SCDs. No subcutaneous heparin until cleared by neurosurgery. Further recommendations per Dr. Duque. Discussed with Dr. Duque. Time spent on critical care excluding procedures 40 minutes Raul Case MD Aug 07, 2017 09:42
[2017-08-07] MEDS ORDERED: LORazepam 2 MG/ML VIAL IV PUSH PRN ×3 (09:45)
[2017-08-07] MEDS ORDERED: SODIUM CHLOR 0.9% 250 ML INJ 250 ML IV ONE (09:45)
[2017-08-07] MEDS: RESP: ALBUTEROL 2.5 MG/IPRATROPIUM 0.5 MG NEB (SCH) NEB ×3 (09:50→20:38)
--- NOTE | 2017-08-07 13:12 | PD.CONS ---
[facility] Service neurosurgery Consult Requested By Bola Reason for Consult Subdural hematoma Primary Care Physician Chen Hamilton MD History of Present Illness 66-year-old male who was brought to the ER by [facility] after passing out at a local bar. There was limited history available in view of altered mental status. Patient was found to have subdural hematoma and bitemporal small bleeds /contusions. Dr. Duque from neurosurgery was contacted by ER physician and requested patient be admitted by critical care medicine service to the ICU with consulted for neurosurgery. Patient was accepted for admission by critical care medicine service. Patient did have an elevated EtOH level. When I evaluated the patient in the ER he was drowsy, easily arousable, new he was at the hospital however otherwise was confused and disoriented. He could not tell me how he was brought to the hospital. History was obtained by reviewing records and discussion with ER physician and nursing staff. Review of Systems ROS Limitations: Intoxication, encephalopathy Past Family Social History Allergies: Coded Allergies: Sulfa (Sulfonamide Antibiotics) (Unverified Allergy, Severe, UNKNOWN - CHILD, 08/07/17) Past Medical History Arthritis: Yes Autoimmune Disease: No Blood Disorders: No Heart Rhythm Problems: No Cancer: No Cardiovascular Problems: No High Cholesterol: No Chemotherapy: No Chest Pain: Yes COPD: No Cerebrovascular Accident: No Diabetes: Yes Endocrine: Yes Gastrointestinal Disorders: No GERD: No Genitourinary: No Headaches: Yes Hepatitis: Yes (HEP C SINCE 1969) Hiatal Hernia: No Heparin Induced Thrombocytopen: No 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) Hypertension: No Immune Disorder: No Implanted Vascular Access Dvce: No Musculoskeletal: No Neurologic: No Psychiatric: No Reproductive: No Respiratory: No Immunizations Current: Yes Migraines: No Myocardial Infarction: Yes Pneumonia: Yes Radiation Therapy: No Seizures: No Sickle Cell Disease: No Sleep Apnea: No Thyroid Disease: No Ulcer: No Tetanus Vaccination: < 5 Years Influenza Vaccination: Yes Past Surgical History Abdominal Surgery: No AICD: No Arteriovenous Shunt: No Cardiac Surgery: No Ear Surgery: No Endocrine Surgery: No Eye Surgery: No Genitourinary Surgery: Yes (Vasectomy) Gynecologic Surgery: No Insulin Pump: No Joint Replacement: No Neurologic Surgery: No Oral Surgery: Yes (TONSILLECTOMY) Pacemaker: No Thoracic Surgery: No Tonsillectomy: Yes Other Surgery: Yes (VASECTOMY AND CIRCUMSISION) Reported Medications Lortab (Hydrocodone-Acetaminophen) 5-325 Mg Tab 1 Tab PO Q4H PRN Potassium Chloride ER (Potassium Chloride) 10 Meq Cap 10 Meq PO BID Lantus Inj (Insulin Glargine) 1,000 Unit/10 Ml Vial 1 Units SQ HS Glucophage XR (Metformin HCl) 500 Mg Genet 500 Mg PO BID With evening meal Social History Alcohol Use: Yes (ALCOHOLIC PER FAMILY) Tobacco Use: Yes (2ppd) Substance Use: Yes (HX OF ALCOHOLISM) Physical Exam Vital Signs Vital Signs Date Time Temp Pulse Resp B/P (MAP) Pulse Ox O2 Delivery O2 Flow Rate FiO2 08/07/17 12:00 89 08/07/17 12:00 98.2 89 32 124/70 (88) 94 08/07/17 09:56 93 Nasal Cannula 3.00 08/07/17 09:15 76 08/07/17 09:15 08/07/17 09:15 97.3 76 23 108/71 (83) 93 08/07/17 07:19 97.8 77 23 104/51 (68) 94 Nasal Cannula 3.00 08/07/17 07:18 95 Nasal Cannula 3.00 08/07/17 06:04 73 22 116/67 (83) 96 Nasal Cannula 3.00 08/07/17 04:52 89 18 115/60 (78) 96 Nasal Cannula 3.00 08/07/17 03:51 96 Nasal Cannula 3.00 08/07/17 03:49 98.2 87 16 119/70 (86) 88 Physical Exam The patient is very sleepy, arousable to loud voice, confused, oriented to self. Stuporose. GCS 13 Cranial nerve examination demonstrates the pupils to be equal, round, and reactive to light. Extra-ocular movements are intact with normal convergence. Facial motor function appears normal and symmetrical. Face sensation, hearing, visual dunbar, and olfaction can not be assessed properly due to the patients condition. The patient has an intact corneal reflex and a gag reflex. Sternocleidomastoid and trapezius have normal and symmetrical strength. Other cranial nerves are intact. Neck is soft and supple. Cervical spine has a normal range of motion of the cervical spine without pain. There is no tenderness to palpation to the spinous processes or paraspinal muscles. Muscle testing reveals normal bulk and tone overall without rigidity, spasticity , fasciculations, or atrophy. Muscle strength is 5/5 in all muscle groups of both upper and lower extremities. Deep tendon reflexes are 1+ and symmetrical in the biceps, triceps, and brachioradialis, bilaterally, in the upper extremities. In the lower extremities , the patellar and Achilles are 1+, bilaterally. There is a bilateral plantar flexion response. Hoffmanns sign is negative. There is no clonus or other abnormal reflexes noted. Cerebellar examination is limited due to the patient condition, but no obvious deficits are noted. Laboratory Laboratory Tests Test 08/07/17 04:40 08/07/17 06:35 White Blood Count 4.0 Red Blood Count 4.77 Hemoglobin 15.0 Hematocrit 45.4 Mean Corpuscular Volume 95.0 Mean Corpuscular Hemoglobin 31.4 Mean Corpuscular Hemoglobin Concent 33.1 Red Cell Distribution Width 17.0 Platelet Count 47 Mean Platelet Volume 8.2 Neutrophils (%) (Auto) 63.7 Lymphocytes (%) (Auto) 24.0 Monocytes (%) (Auto) 10.2 Eosinophils (%) (Auto) 1.2 Basophils (%) (Auto) 0.9 Neutrophils # (Auto) 2.6 Lymphocytes # (Auto) 1.0 Monocytes # (Auto) 0.4 Eosinophils # (Auto) 0.0 Basophils # (Auto) 0.0 CBC Comment AUTO DIFF Differential Total Cells Counted 100 Neutrophils % (Manual) 59 Band Neutrophils % 10 Lymphocytes % 19 Monocytes % 6 Eosinophils % 2 Basophils % 2 Neutrophils # (Manual) 2.8 Myelocytes 1 Promyelocytes 1 Differential Comment FINAL DIFF MANUAL Atypical Lymphocytes Toxic Vacuolation PRESENT Platelet Estimate LOW Platelet Morphology Comment NORMAL Red Cell Morphology Comment NORMAL Blood Urea Nitrogen 13 Creatinine 0.63 Random Glucose 239 Calcium Level 7.8 Magnesium Level 2.2 Sodium Level 137 Potassium Level 3.1 Chloride Level 101 Carbon Dioxide Level 24.9 Anion Gap 11 Estimat Glomerular Filtration Rate 127 Lactic Acid Level 2.2 2.1 B-Type Natriuretic Peptide 10 Ethyl Alcohol Level 218 Prothrombin Time 12.6 Prothromb Time International Ratio 1.1 Activated Partial Thromboplast Time 27.1 Date/Time Source Procedure Growth Status 08/07/17 04:40 Blood Peripheral Aerobic Blood Culture Pending Received 08/07/17 04:40 Blood Peripheral Anaerobic Blood Culture Pending Received Result Diagram: 08/07/1743908/07/17439 Imaging Last [address] 08/07/17405 Signed Impressions: Service Date/Time: August 04:17 - CONCLUSION: Right- sided subdural hematoma and bilateral anterior temporal hemorrhages. Rakesh Gandhi MD Chest X-Ray 08/07/17405 Signed Impressions: Service Date/Time: August 04:20 - CONCLUSION: Mild interstitial prominence Rakesh Gandhi MD Assessment and Plan Assessment and Plan Caprini VTE Risk Assessment Caprini VTE Risk Assessment: Mod/High Risk (score >= 2) Caprini Risk Assessment Model Point Value = 1 Point Value = 2 Point Value = 3 Point Value = 5 Age 41-60 Minor surgery BMI > 25 kg/m2 Swollen legs Varicose veins or History of unexplained or recurrent spontaneous Oral contraceptives or hormone replacement Sepsis (< 1 month) Serious lung disease, including pneumonia (< 1 month) Abnormal pulmonary function Acute myocardial infarction Congestive heart failure (< 1 month) History of inflammatory bowel disease Medical patient at bed rest Age 61-74 Arthroscopic surgery Major open surgery (> 45 min) Laparoscopic surgery (> 45 min) Malignancy Confined to bed (> 72 hours) Immobilizing plaster cast Central venous access Age >= 75 History of VTE Family history of VTE Factor V Leiden Prothrombin [id number] Lupus anticoagulant Anticardiolipin antibodies Elevated serum homocysteine Heparin-induced thrombocytopenia Other congenital or acquired thrombophilia Stroke (< 1 month) Elective arthroplasty Hip, pelvis, or leg fracture Acute spinal cord injury (< 1 month) Prophylaxis Regimen Total Risk Factor Score Risk Level Prophylaxis Regimen 0-1 Low Early ambulation 2 Moderate Order ONE of the following: *Sequential Compression Device (SCD) *Heparin 5000 units SQ BID 3-4 Higher Order ONE of the following medications: *Heparin 5000 units SQ TID *Enoxaparin/Lovenox 40 mg SQ daily (WT < 150 kg, CrCl > 30 mL/min) *Enoxaparin/Lovenox 30 mg SQ daily (WT < 150 kg, CrCl > 10-29 mL/min) *Enoxaparin/Lovenox 30 mg SQ BID (WT < 150 kg, CrCl > 30 mL/min) AND/OR *Sequential Compression Device (SCD) 5 or more Highest Order ONE of the following medications: *Heparin 5000 units SQ TID (Preferred with Epidurals) *Enoxaparin/Lovenox 40 mg SQ daily (WT < 150 kg, CrCl > 30 mL/min) *Enoxaparin/Lovenox 30 mg SQ daily (WT < 150 kg, CrCl > 10-29 mL/min) *Enoxaparin/Lovenox 30 mg SQ BID (WT < 150 kg, CrCl > 30 mL/min) AND *Sequential Compression Device (SCD) Attending Statement 66-year-old male with: Encephalopathy Alcohol intoxication Subdural hematoma Diabetes mellitus Thrombocytopenia Hepatitis C Neuro. neuro checks in a serial fashion. A follow-up CT of the head will be obtained in 24 hours. Nonoperative treatment Pulmonary.aggressive pulmonary toilette, nasotracheal suction, and breathing treatments with nebulizers. Alcohol intoxication. Watch for signs of withdrawal The patient has comorbidities including Alcohol intoxication, Diabetes mellitus , Thrombocytopenia, Hepatitis C, which increase the risk for developing complications. Thrombocytopenia. Monitor. if further decreas will transfuse platelets Nutrition. Oral diet ADA 2000 Florentino Renal. monitor closely urine output, BUN and creatinine Diabetes mellitus. Monitor serial Acu checks and SSI as needed in detail ID monitor for signs of infection Protonix for stress ulcer prophylaxis Ron marino and SCD's for DVT prophylaxis. Rasheed Duque MD Aug 07, 2017 13:12
[2017-08-08] VITALS (16 sets, daily range): BP systolic 95–130; BP diastolic 50–63; PULSE 68–82; RESP 19–28; TEMP 98–99.4; O2SAT 90–98
[2017-08-08] MEDS: INSULIN ASPART SUPPLEMENTAL SCALE SQ SCH ×4 (00:09→17:42)
[2017-08-08] MEDS: metroNIDAZOLE 500 MG INJ 100 ML IV SCH ×3 (01:45→17:11)
[2017-08-08] MEDS: CHLORHEXIDINE GLUCONATE 2 % 1 PACK (2 CLOTHS) TOP SCH (01:46)
[2017-08-08] MEDS: RESP: ALBUTEROL 2.5 MG/IPRATROPIUM 0.5 MG NEB (SCH) NEB ×4 (04:18→19:54)
[2017-08-08 05:20] LABS: AUTOMATED NEUTROPHIL # 4.8 TH/MM3 (1.8-7.7); BASOPHIL # 0.1 TH/MM3 (0-0.2); BASOPHIL % 1.3 % (0.0-2.0); EOSINOPHIL # 0.1 TH/MM3 (0-0.4); EOSINOPHIL % 1.2 % (0.0-4.0); HEMATOCRIT 43.5 % (39.0-51.0); LYMPH % 12.1 % (9.0-44.0); LYMPHOCYTE # 0.8 TH/MM3 (1.0-4.8); MEAN CELL VOLUME 95.6 FL (80.0-100.0); MEAN CORPUSCULAR HEMOGLOBIN 31.8 PG (27.0-34.0); MEAN CORPUSCULAR HGB CONC 33.3 % (32.0-36.0); MONO % 9.6 % (0.0-8.0); NEUT % 75.8 % (16.0-70.0); PLATELET COUNT 94 TH/MM3 (150-450); RED BLOOD COUNT 4.56 MIL/MM3 (4.50-5.90); RED CELL DISTRIBUTION WIDTH 16.1 % (11.6-17.2); WHITE BLOOD COUNT 6.4 TH/MM3 (4.0-11.0)
[2017-08-08 05:30] LABS: HEMO FLAGS AUTO DIFF
[2017-08-08 05:51] LABS: ALKALINE PHOSPHATASE 68 U/L (45-117); ALT (GPT) 14 U/L (12-78); ANION GAP 8 MEQ/L (5-15); AST (GOT) 11 U/L (15-37); BICARBONATE 28.7 MEQ/L (21.0-32.0); BLOOD UREA NITROGEN 10 MG/DL (7-18); CHLORIDE 102 MEQ/L (98-107); GLOMERULAR FILTRATION RATE 155 ML/MIN (>89); MAGNESIUM 2.1 MG/DL (1.5-2.5); POTASSIUM 3.5 MEQ/L (3.5-5.1); SODIUM (NA) 139 MEQ/L (136-145)
[2017-08-08 06:53] LABS: PLATELET ESTIMATE SMEAR LOW (NORMAL); PLATELET MORPHOLOGY NORMAL (NORMAL); SCAN/DIFF AUTO DIFF CONFIRMED
[2017-08-08] MEDS: FOLIC ACID 1 MG TAB PO SCH (09:00)
[2017-08-08] MEDS: MULTIVITAMINS/MINERALS THERAPEUTIC TAB PO SCH (09:00)
[2017-08-08] MEDS: SODIUM CHLORIDE 0.9% FLUSH 10 ML FLUSH IV FLUSH SCH ×2 (09:00→21:00)
[2017-08-08] MEDS: DOCUSATE SODIUM 50 MG/SENNA 8.6 MG TAB PO SCH ×2 (09:00→21:00)
[2017-08-08] MEDS: THIAMINE HCL 100 MG TAB PO SCH (09:00)
[2017-08-08] MEDS: LEVOFLOXACIN 750 MG PREMIX INJ 150 ML IV SCH (09:01)
[2017-08-08] MEDS: FAMOTIDINE 20 MG/2 ML VIAL IV PUSH SCH ×2 (09:01→20:00)
--- NOTE | 2017-08-08 09:50 | RADRPT ---
EXAM DATE/TIME: 08/08/2017 09:19 [place] COMPARISON: CT BRAIN W/O CONTRAST, August 07, 2017, 4:17. INDICATIONS : Follow up bleed. Altered mental status. RADIATION DOSE: 56.35 CTDIvol (mGy) MEDICAL HISTORY : Cardiovascular disease. Hepatitis C. SURGICAL HISTORY : Fractured skull ENCOUNTER: Initial ACUITY: 2 days PAIN SCALE: Non-responsive LOCATION: cranial TECHNIQUE: Multiple contiguous axial images were obtained of the head. Using automated exposure control and adj ustment of the mA and/or kV according to patient size, radiation dose was kept as low as reasonably a chievable to obtain optimal diagnostic quality images. DICOM format image data is available electro nically for review and comparison. FINDINGS: There has been interval worsening acute parenchymal hemorrhage within the left temporal lobe which no w measures 3.9 x 2.5 cm. Acute extra-axial (probable subdural) bleeds are noted within the anterior mi ddle cranial fossa's bilaterally and appear stable. There is an acute extra-axial bleed within the right parietal and occipital lobes which is stable compared to the previous examination also. Mild to moderate periventricular an d subcortical white matter small vessel ischemic changes are noted bilaterally. No midline shift is no raul. The ventricles, sulci and cisterns are stable. CONCLUSION: 1. Interval worsening acute parenchymal hemorrhage within the left temporal lobe which now measures 3.9 x 2.5 cm. 2. Stable acute extra-axial (probable subdural) bleeds involving the anterior temporal lobes and rig ht posterior parietal/occipital lobes. 3. Mild to moderate periventricular and subcortical white matter small vessel ischemic changes meghan greene. Luc Fernandez MD on August 08, 2017 at 9:39 Board Certified Radiologist. This report was verified electronically.
[2017-08-08 12:16] LABS: BLOOD, URINE NEG (NEG); GLUCOSE,URINE 70 mg/dL (NEG); KETONE, URINE NEG (NEG); NITRITE,URINE NEG (NEG); URINE COLOR YELLOW (YELLW/STRAW)
[2017-08-08 12:17] LABS: COMMENT (UR) CATH-CULT NOT IND; CULTURE IF INDICATED CATH CULTURE NOT IND
[2017-08-08] MEDS: NS + KCL 20 MEQ INJ 1,000 ML IV SCH (13:05)
--- NOTE | 2017-08-08 15:27 | HHI.PR ---
Subjective Remarks f/u SDH Patient becoming more sleepy but received ATivan at 5 am this morning. Patient is arousable, follows some commands, oriented to self but not to time. Goes back to sleep easily. Objective Vitals Vital Signs Date Time Temp Pulse Resp B/P (MAP) Pulse Ox O2 Delivery O2 Flow Rate FiO2 08/08/17 15:00 68 08/08/17 14:00 82 08/08/17 12:00 98.7 81 28 105/53 (70) 94 08/08/17 12:00 81 08/08/17 10:00 73 08/08/17 08:00 69 08/08/17 08:00 69 08/08/17 08:00 98.4 69 24 95/50 (65) 90 08/08/17 07:57 90 Nasal Cannula 5.00 08/08/17 07:00 90 Nasal Cannula 5.00 08/08/17 06:00 75 08/08/17 04:00 98.0 74 19 108/56 (73) 96 08/08/17 04:00 74 08/08/17 02:00 78 08/08/17 00:00 98.0 78 25 111/63 (79) 93 08/08/17 00:00 78 08/07/17 23:00 94 08/07/17 22:00 88 08/07/17 20:40 93 Nasal Cannula 3.00 08/07/17 20:00 93 08/07/17 20:00 97.7 93 25 115/57 (76) 96 08/07/17 19:00 97 Nasal Cannula 3.00 08/07/17 18:00 97 08/07/17 16:00 89 08/07/17 16:00 98.2 81 20 151/93 (112) 95 I/O 08/07/17 08/07/17 08/07/17 08/08/17 08/08/17 08/08/17 07:00 15:00 23:00 07:00 15:00 23:00 Intake Total 634 ml 1100 ml 624 ml Output Total 500 ml 950 ml Balance 134 ml 1100 ml -326 ml Intake Oral 0 ml IV Total 250 ml 1100 ml 624 ml Platelets 384 ml Blood Product IV Normal Saline Flush 0 ml Output Urine Total 500 ml 950 ml # Voids 2 Result Diagram: 08/08/17 0353 08/08/17 035 Imaging Last Impressions Head CT 08/08/17 0000 Signed Impressions: Service Date/Time: Tuesday, August 08, 2017 09:19 - CONCLUSION: 1. Interval worsening acute parenchymal hemorrhage within the left temporal lobe which now measures 3.9 x 2.5 cm. 2. Stable acute extra-axial (probable subdural) bleeds involving the anterior temporal lobes and right posterior parietal/occipital lobes. 3. Mild to moderate periventricular and subcortical white matter small vessel ischemic changes bilaterally. Luc Fernandez MD Chest X-Ray 08/07/17 0406 Signed Impressions: Service Date/Time: August 04:20 - CONCLUSION: Mild interstitial prominence Rakesh Gandhi MD Objective Remarks GENERAL: The patient falls asleep in conversation. He is arousable. EYES: Pupils equal and round, 3 mm bilaterally, reactive. CARDIOVASCULAR: Regular rate and rhythm. Heart sounds normal. RESPIRATORY: No accessory muscle use. Poor effort. Coughing. GASTROINTESTINAL: Abdomen soft. Nontender. Bowel sounds present. Nondistended. MUSCULOSKELETAL: No obvious deformities. NEUROLOGICAL: Sleepy but arousable. Oriented to self, place but not to time, he thinks it is July 2017. Moves extremities symmetrically bilaterally. Speech is coherent A/P Assessment and Plan This is a 66-year-old male with a SDH and history of alcohol intoxication. Subdural hematoma-mild worsening of mental status, repeat CT scan today personally reviewed showed worsening left temporal subdural hematoma. Dr. Duque was informed by RN. Continue neurochecks. Avoid blood thinners. Keep intensive care unit. Alcohol intoxication, possible withdrawal symptoms-Ativan could be complicating the clinical picture, hold Ativan and Librium for now. Thrombocytopenia-likely secondary to alcohol abuse, status post transfusion, monitor, platelets better today Possible aspiration pneumonia-chest x-ray showed interstitial prominence, patient is coughing, saturation is fine, continue Flagyl and Levaquin. Continue bronchodilators and oxygen support. Switch to oral when more awake. Follow-up blood culture, negative to date Diabetes mellitus-sliding scale insulin for now, diabetic diet, blood glucose relatively controlled Hepatitis C-follow as outpatient Prophylaxis: Pepcid/SCDs. No subcutaneous heparin until cleared by neurosurgery. Discharge Planning Not medically ready Madalyn Mensah MD Aug 08, 2017 15:27
--- NOTE | 2017-08-08 16:11 | HHI.NSPN ---
(Deja Dee) Note Status Status: Progress Note (Deja Dee) Interval History Interval History 66-year-old male who was brought to the ER by [facility] after passing out at a local bar. There was limited history available in view of altered mental status. Patient was found to have subdural hematoma and bitemporal small bleeds /contusions. Dr. Duque from neurosurgery was contacted by ER physician and requested patient be admitted by critical care medicine service to the ICU with consulted for neurosurgery. Patient was accepted for admission by critical care medicine service. Patient did have an elevated EtOH level. When I evaluated the patient in the ER he was drowsy, easily arousable, new he was at the hospital however otherwise was confused and disoriented. He could not tell me how he was brought to the hospital. History was obtained by reviewing records and discussion with ER physician and nursing staff. 08/08: f/u CT Head this morning with new left temporal intraparenchymal hemorrhage. patient appears mildly drowsy but awake - reports he is ok. (Deja Dee) Labs, Micro, & Vital Signs Results Date Time Temp Pulse Resp B/P (MAP) Pulse Ox O2 Delivery O2 Flow Rate FiO2 08/08/17 15:20 92 Nasal Cannula 5.00 08/08/17 15:00 68 08/08/17 14:00 82 08/08/17 12:00 98.7 81 28 105/53 (70) 94 08/08/17 12:00 81 08/08/17 10:00 73 08/08/17 08:00 69 08/08/17 08:00 69 08/08/17 08:00 98.4 69 24 95/50 (65) 90 08/08/17 07:57 90 Nasal Cannula 5.00 08/08/17 07:00 90 Nasal Cannula 5.00 08/08/17 06:00 75 08/08/17 04:00 98.0 74 19 108/56 (73) 96 08/08/17 04:00 74 08/08/17 02:00 78 08/08/17 00:00 98.0 78 25 111/63 (79) 93 08/08/17 00:00 78 08/07/17 23:00 94 08/07/17 22:00 88 08/07/17 20:40 93 Nasal Cannula 3.00 08/07/17 20:00 93 08/07/17 20:00 97.7 93 25 115/57 (76) 96 08/07/17 19:00 97 Nasal Cannula 3.00 08/07/17 18:00 97 Constitutional Vital Signs Date Time Temp Pulse Resp B/P (MAP) Pulse Ox O2 Delivery O2 Flow Rate FiO2 08/08/17 15:20 92 Nasal Cannula 5.00 08/08/17 15:00 68 08/08/17 14:00 82 08/08/17 12:00 98.7 81 28 105/53 (70) 94 08/08/17 12:00 81 08/08/17 10:00 73 08/08/17 08:00 69 08/08/17 08:00 69 08/08/17 08:00 98.4 69 24 95/50 (65) 90 08/08/17 07:57 90 Nasal Cannula 5.00 08/08/17 07:00 90 Nasal Cannula 5.00 08/08/17 06:00 75 08/08/17 04:00 98.0 74 19 108/56 (73) 96 08/08/17 04:00 74 08/08/17 02:00 78 08/08/17 00:00 98.0 78 25 111/63 (79) 93 08/08/17 00:00 78 08/07/17 23:00 94 08/07/17 22:00 88 08/07/17 20:40 93 Nasal Cannula 3.00 08/07/17 20:00 93 08/07/17 20:00 97.7 93 25 115/57 (76) 96 08/07/17 19:00 97 Nasal Cannula 3.00 08/07/17 18:00 97 (Deja Dee) Review of Systems Constitutional: DENIES: Fever Neurologic: DENIES: Headache, Seizures (Deja Dee) Physical Exam Mr. Valentine is sleeping but arouses and opens eyes briefly, said "I'm ok", otherwise did not answer other questions. Follows few simple commands. Cranial nerve examination: pupils to be equal, round, and reactive to light, gross eoms movements are intact. Facial motor are symmetric at rest. Motor: moves grossly all four extremities, cannot assess detail exam due to clinical condition Sensory examination: withdraws to pain x 4 Deep tendon reflexes are 1+ in the upper and lower extremities. Mild bilateral Babinski response. Cerebellar examination cannot asses due to clinical condition. (Deja Dee) Mr. Valentine is with eyes open, not following commands. Cranial nerve examination: pupils to be equal, round, and reactive to light. Facial motor are symmetric at rest. Motor: he moves all four extremities purposefully, but does not follow commands Sensory examination: grimaces and withdraws to pain x 4 Deep tendon reflexes are 1+ in the upper and lower extremities. Mild bilateral Babinski response. Cerebellar examination cannot asses due to clinical condition. No seizure like activity seen (Rasheed Duque MD) Medications Current Medications Current Medications Medications (Trade) Dose Ordered Sig/Sameera Route PRN Reason Start Time Stop Time Status Last Admin Dose Admin Potassium Chloride/Sodium Chloride 1,000 ml @ 100 mls/hr Q10H IV 08/07/17 08:00 08/08/17 13:05 Sodium Chloride (NS Flush) 2 ml UNSCH PRN IV FLUSH FLUSH AFTER USING IV ACCESS 08/07/17 07:00 Sodium Chloride (NS Flush) 2 ml BID IV FLUSH 08/07/17 09:00 08/08/17 09:00 Acetaminophen (Tylenol) 650 mg Q6H PRN PO PAIN 1-10 AND/OR FEVER >101F 08/07/17 07:00 Famotidine (Pepcid Inj) 20 mg Q12HR IV PUSH 08/07/17 09:00 08/08/17 09:01 Ondansetron HCl (Zofran Inj) 4 mg Q6H PRN IV PUSH NAUSEA OR VOMITING 08/07/17 07:00 Albuterol/ Ipratropium (Duoneb Neb) 1 ampule Q2HR NEB PRN INH WHEEZING 08/07/17 07:00 Miscellaneous Information 1 Q361D XX 08/07/17 07:00 Chlorhexidine Gluconate (Chlorhexidine 2% Cloth) 3 pack Taper DAILY@04 TOP 08/08/17 04:00 08/04/18 03:59 Chlorhexidine Gluconate (Chlorhexidine 2% Cloth) 3 pack UNSCH PRN TOP HYGIENIC CARE 08/07/17 07:00 Senna/Docusate Sodium (Tess-Colace) 1 tab BID PO 08/07/17 09:00 Magnesium Hydroxide (Milk Of Magnesia Liq) 30 ml Q12H PRN PO Mild constipation 08/07/17 07:00 Sennosides (Senokot) 17.2 mg Q12H PRN PO Moderate constipation 08/07/17 07:00 Bisacodyl (Dulcolax Supp) 10 mg DAILY PRN RECTAL SEVERE CONSITIPATION 08/07/17 07:00 Lactulose (Lactulose Liq) 30 ml DAILY PRN PO SEVERE CONSITIPATION 08/07/17 07:00 Potassium Chloride 100 ml @ 50 mls/hr Q2H PRN IV For Potassium 2.8 - 3.2 mEq/L 08/07/17 07:00 Potassium Chloride 100 ml @ 50 mls/hr Q2H PRN IV For Potassium 2.8 - 3.2 mEq/L 08/07/17 07:00 Potassium Bicarb/ Potassium Chloride (K-Lyte Cl Eff) 50 meq UNSCH PRN PO For Potassium 3.3 - 3.5 mEq/L 08/07/17 07:00 Potassium Chloride 100 ml @ 25 mls/hr UNSCH PRN IV For Potassium 3.3 - 3.5 mEq/L 08/07/17 07:00 Potassium Chloride 100 ml @ 50 mls/hr Q2H PRN IV For Potassium 3.3 - 3.5 mEq/L 08/07/17 07:00 Magnesium Sulfate 4 gm/Sodium Chloride 100 ml @ 50 mls/hr UNSCH PRN IV For Magnesium 0.9 - 1.1 mg/dL 08/07/17 07:00 Magnesium Oxide (Mag-Ox) 800 mg UNSCH PRN PO For Magnesium 1.2 - 1.6 mg/dL 08/07/17 07:00 Magnesium Sulfate 2 gm/Sodium Chloride 100 ml @ 50 mls/hr UNSCH PRN IV For Magnesium 1.2 - 1.6 mg/dL 08/07/17 07:00 Potassium Phosphate (K-Phos) 2,000 mg Q4H PRN PO For Phosphorus < 2.5 mg/dL 08/07/17 07:00 Sodium Phosphate 30 mmol/Sodium Chloride 250 ml @ 42 mls/hr UNSCH PRN IV For Phosphorus < 2.5 mg/dL 08/07/17 07:00 Potassium Phosphate (K-Phos) 2,000 mg UNSCH PRN PO/TUBE SEE LABEL COMMENTS 08/07/17 07:00 Potassium Phosphate 30 mmol/ Sodium Chloride 260 ml @ 42 mls/hr UNSCH PRN IV SEE LABEL COMMENTS 08/07/17 07:00 Insulin Aspart (NovoLOG SUPPLEMENTAL SCALE) 1 Q6HR SQ 08/07/17 08:45 08/08/17 00:09 Dextrose (D50w (Vial) Inj) 25 ml UNSCH PRN IV HYPOGLYCEMIA-SEE COMMENTS 08/07/17 07:00 Glucagon (Glucagon Inj) 1 mg UNSCH PRN IM/SQ HYPOGLYCEMIA-SEE COMMENTS 08/07/17 07:00 Levofloxacin/ Dextrose 150 ml @ 100 mls/hr Q24H IV 08/07/17 10:00 08/08/17 09:01 Metronidazole 100 ml @ 100 mls/hr Q8H IV 08/07/17 10:00 08/08/17 09:01 Albuterol/ Ipratropium (Duoneb Neb) 1 ampule Q6HR NEB NEB 08/07/17 10:00 08/08/17 15:22 Folic Acid (Folate) 1 mg DAILY PO 08/08/17 09:00 08/13/17 08:59 Thiamine HCl (Vitamin B1) 100 mg DAILY PO 08/08/17 09:00 Multivitamins/ Minerals Therapeutic (Theragran M Tab) 1 tab DAILY PO 08/08/17 09:00 08/13/17 08:59 Lorazepam (Ativan Inj) 1 mg Q4H PRN IV PUSH CIWA 8 - 10 08/07/17 09:45 Future Hold 08/08/17 05:47 Lorazepam (Ativan Inj) 2 mg Q2H PRN IV PUSH CIWA 11-14 08/07/17 09:45 Future Hold Lorazepam (Ativan Inj) 2 mg Q15M PRN IV PUSH CIWA > 20 08/07/17 09:45 Future Hold Haloperidol Lactate (Haldol Inj) 2 mg Q15M PRN IM SEE LABEL COMMENTS 08/07/17 09:45 (Deja Dee) Medical Decision Making MDM Remarks 66 y/o male s/p fall due to acute etoh intoxication etoh abuse with history of prior falls and TBI f/u CT Head 08/08 with new left temporal parenchymal hematoma (Deja Dee) Plan Plan Remarks CT Head this am reviewed by Dr. Duque, cont nonoperative mgt, cont close neuro checks in [facility], do not transfer out of unit nonchemical dvt prophylaxis in view of acute ICH Protonix for stress ulcer proph dw nursing (Deja Dee) Attending Statement Neuro. neuro checks in a serial fashion. A follow-up CT of the head looks worse. Continue nonoperative treatment. Pulmonary.Continue aggressive pulmonary toilette, nasotracheal suction, and breathing treatments with nebulizers. Alcohol intoxication. Continue Watch for signs of withdrawal The patient has comorbidities including Alcohol intoxication, Diabetes mellitus , Thrombocytopenia, Hepatitis C, which increase the risk for developing complications. Thrombocytopenia. Continue Monitor. if further decreas will transfuse platelets Nutrition. Oral diet ADA 2000 Florentino Renal. Continue monitor closely urine output, BUN and creatinine Diabetes mellitus. Continue Monitor serial Acu checks and SSI as needed in detail ID Continue monitor for signs of infection Continue Protonix for stress ulcer prophylaxis Continue Ron hose and SCD's for DVT prophylaxis. The exam, history, and the medical decision-making described in the above note were completed with the assistance of the mid-level provider. I reviewed and agree with the findings presented. I attest that I had a [id number] encounter with the patient on the same day, and personally performed and documented my assessment and findings in the medical record. (Rasheed Duque MD) Deja Dee Aug 08, 2017 16:11 Rasheed Duque MD Aug 08, 2017 21:47
[2017-08-09] VITALS (15 sets, daily range): BP systolic 102–141; BP diastolic 50–90; PULSE 71–91; RESP 13–24; TEMP 98–99.4; O2SAT 90–98
[2017-08-09] MEDS: metroNIDAZOLE 500 MG INJ 100 ML IV SCH ×3 (01:05→17:18)
[2017-08-09] MEDS: CHLORHEXIDINE GLUCONATE 2 % 1 PACK (2 CLOTHS) TOP SCH (04:00)
[2017-08-09] MEDS: RESP: ALBUTEROL 2.5 MG/IPRATROPIUM 0.5 MG NEB (SCH) NEB ×4 (04:13→21:18)
[2017-08-09 04:46] LABS: AUTOMATED NEUTROPHIL # 4.6 TH/MM3 (1.8-7.7); BASOPHIL # 0.1 TH/MM3 (0-0.2); BASOPHIL % 1.1 % (0.0-2.0); EOSINOPHIL # 0.1 TH/MM3 (0-0.4); EOSINOPHIL % 0.9 % (0.0-4.0); HEMATOCRIT 43.7 % (39.0-51.0); LYMPH % 9.3 % (9.0-44.0); LYMPHOCYTE # 0.5 TH/MM3 (1.0-4.8); MEAN CELL VOLUME 94.8 FL (80.0-100.0); MEAN CORPUSCULAR HEMOGLOBIN 32.1 PG (27.0-34.0); MEAN CORPUSCULAR HGB CONC 33.9 % (32.0-36.0); MONO % 9.1 % (0.0-8.0); NEUT % 79.6 % (16.0-70.0); PLATELET COUNT 86 TH/MM3 (150-450); RED CELL DISTRIBUTION WIDTH 15.9 % (11.6-17.2); WHITE BLOOD COUNT 5.8 TH/MM3 (4.0-11.0)
[2017-08-09 04:58] LABS: HEMO FLAGS AUTO DIFF
[2017-08-09 05:10] LABS: BICARBONATE 29.3 MEQ/L (21.0-32.0); POTASSIUM 3.9 MEQ/L (3.5-5.1)
[2017-08-09] MEDS: INSULIN ASPART SUPPLEMENTAL SCALE SQ SCH ×4 (06:00→17:18)
--- NOTE | 2017-08-09 07:15 | HHI.PR ---
Subjective Remarks Patient seen and examined this morning. Vitals are stable. Saturating 95% on 5 L. Per nurse no overnight events. He is impulsive at times. She reports he is slightly more awake than previous. Nurse reports he told her his name when asked. He does not answer this question for me. Objective Vital Signs Date Time Temp Pulse Resp B/P (MAP) Pulse Ox O2 Delivery O2 Flow Rate FiO2 08/09/17 06:00 90 08/09/17 04:15 95 Nasal Cannula 5.00 08/09/17 04:00 88 08/09/17 04:00 98.5 88 13 139/63 (88) 98 08/09/17 02:00 72 08/09/17 00:00 88 08/09/17 00:00 99.4 88 24 141/73 (95) 96 08/08/17 22:00 82 08/08/17 20:00 99.4 76 27 130/58 (82) 97 08/08/17 20:00 72 08/08/17 20:00 97 Nasal Cannula 5.00 08/08/17 19:54 98 Nasal Cannula 5.00 08/08/17 18:00 72 08/08/17 16:00 80 08/08/17 16:00 98.2 80 28 119/61 (80) 97 08/08/17 15:20 92 Nasal Cannula 5.00 08/08/17 15:00 68 08/08/17 14:00 82 08/08/17 12:00 98.7 81 28 105/53 (70) 94 08/08/17 12:00 81 08/08/17 10:00 73 08/08/17 08:00 69 08/08/17 08:00 69 08/08/17 08:00 98.4 69 24 95/50 (65) 90 08/08/17 07:57 90 Nasal Cannula 5.00 I/O 08/08/17 08/08/17 08/08/17 08/09/17 08/09/17 08/09/17 07:00 15:00 23:00 07:00 15:00 23:00 Intake Total 624 ml 726 ml 100 ml 587 ml Output Total 950 ml 1900 ml Balance -326 ml 726 ml 100 ml -1313 ml Intake Oral 0 ml 0 ml IV Total 624 ml 726 ml 100 ml 587 ml Output Urine Total 950 ml 1900 ml Stool Total 0 ml # Voids 3 # Bowel Movements 0 Result Diagram: 08/09/17 0330 08/09/17 0330 Imaging Last Impressions Head CT 08/08/17 0000 Signed Impressions: Service Date/Time: Tuesday, August 08, 2017 09:19 - CONCLUSION: 1. Interval worsening acute parenchymal hemorrhage within the left temporal lobe which now measures 3.9 x 2.5 cm. 2. Stable acute extra-axial (probable subdural) bleeds involving the anterior temporal lobes and right posterior parietal/occipital lobes. 3. Mild to moderate periventricular and subcortical white matter small vessel ischemic changes bilaterally. Luc Fernandez MD Chest X-Ray 08/07/17 0406 Signed Impressions: Service Date/Time: August 04:20 - CONCLUSION: Mild interstitial prominence Rakesh Gandhi MD Objective Remarks GENERAL: resting but awakens easily. SKIN: Warm and dry. HEAD: Normocephalic. EYES: No scleral icterus. No injection or drainage. NECK: Supple, trachea midline. No JVD or lymphadenopathy. CARDIOVASCULAR: Regular rate and rhythm without murmurs, gallops, or rubs. RESPIRATORY: Breath sounds equal bilaterally. No accessory muscle use. GASTROINTESTINAL: Abdomen soft, non-tender, nondistended. MUSCULOSKELETAL: No cyanosis, or edema. No calf tenderness. Neuro: does not answer questions appropriately to me. He moves all extremities. Does not appear to be responding to internal stimuli. A/P Problem List: (1) Subarachnoid hemorrhage ICD Code: I60.9 - Nontraumatic subarachnoid hemorrhage, unspecified Status: Acute (2) Alcohol intoxication ICD Code: F10.929 - Alcohol use, unspecified with intoxication, unspecified Status: Acute Assessment and Plan Is a 4-year-old male who was admitted to the hospital on 08/07 after a fall at a bar that resulted in subdural hematoma and bitemporal small bleeds. Dr. Duque has seen and evaluated the patient. Subdural hematoma: Followed by neurosurgery. Nonoperative treatment. On 08/08 CT showed new left temporal intraparenchymal hemorrhage. Patient remained in the unit. NO Chemical DVT prophylaxis. Keppra for seizure prophylaxis. Alcohol intoxication, with possible withdrawal symptoms: Ativan and Librium on hold due to increased drowsiness. Thrombocytopenia: Likely related to chronic alcohol abuse the patient received transfusion on 08/08, platelets are stable. Aspiration pneumonia: See imaging above. Continue Levaquin and Flagyl. When patient is more awake and able to tolerate by mouth we'll switch to by mouth antibiotics. Blood cultures negative to date. Diabetes: Diabetic diet, sliding scale Hep C, can be followed up as an outpatient GI prophylaxis with Pepcid, bilateral SCDs Discharge Planning Patient to remain in ICU. No discharge planning to place at this time. I discussed case with the patients nurse. Problem Qualifiers (1) Alcohol intoxication: Qualified Codes: F10.929 - Alcohol use, unspecified with intoxication, unspecified Umu Odom MD Aug 09, 2017 07:15
[2017-08-09] MEDS: LEVOFLOXACIN 750 MG PREMIX INJ 150 ML IV SCH (08:06)
[2017-08-09] MEDS: NS + KCL 20 MEQ INJ 1,000 ML IV SCH ×2 (08:06→22:47)
[2017-08-09] MEDS: SODIUM CHLORIDE 0.9% FLUSH 10 ML FLUSH IV FLUSH SCH ×2 (08:06→20:31)
[2017-08-09] MEDS: FAMOTIDINE 20 MG/2 ML VIAL IV PUSH SCH ×2 (08:06→20:32)
[2017-08-09] MEDS: DOCUSATE SODIUM 50 MG/SENNA 8.6 MG TAB PO SCH ×2 (08:07→20:32)
[2017-08-09] MEDS: THIAMINE HCL 100 MG TAB PO SCH (08:07)
[2017-08-09] MEDS: MULTIVITAMINS/MINERALS THERAPEUTIC TAB PO SCH (08:07)
[2017-08-09] MEDS: FOLIC ACID 1 MG TAB PO SCH (08:07)
--- NOTE | 2017-08-09 09:57 | RADRPT ---
EXAM DATE/TIME: 08/09/2017 09:36 [place] COMPARISON: CT BRAIN W/O CONTRAST, August 08, 2017, 9:19. INDICATIONS : Cephalgia; evaluate hemorrhage. RADIATION DOSE: 52.21 CTDIvol (mGy) MEDICAL HISTORY : Hepatitis C. Subdural 04/2017, ETOH Daily. SURGICAL HISTORY : Tonsillectomy. ENCOUNTER: Initial ACUITY: 1 day PAIN SCALE: 5/10 LOCATION: cranial TECHNIQUE: Multiple contiguous axial images were obtained of the head. Using automated exposure control and adj ustment of the mA and/or kV according to patient size, radiation dose was kept as low as reasonably a chievable to obtain optimal diagnostic quality images. DICOM format image data is available electro nically for review and comparison. FINDINGS: Stable parenchymal hemorrhage in the anterior left temporal lobe measuring 3.8 x 2.1 cm with stable b ilateral extra-axial hemorrhage anteriorly, likely subdural. There is also right-sided posterior jhon eto-occipital extra-axial hemorrhage, unchanged from prior exam. Trace stable ventricle blood product s in the left lateral ventricle occipital horn. Ventricles are stable in size and midline. No subfalc ine herniation. Basilar cisterns are intact. Brainstem and cerebellum are within normal limits. Remai nder of exam is unchanged. CONCLUSION: 1. No significant interval change. 2. Stable parenchymal hemorrhage in the anterior left temporal lobe. 3. Stable extra-axial, likely subdural, hemorrhage in the anterior temporal and right posterior parie to-occipital mid to high convexities. 4. Stable subtle intraventricular blood products. 5. No intercurrent new hemorrhage, hydrocephalus, or herniation. Galdino Thakur MD on August 09, 2017 at 9:49 Board Certified Radiologist. This report was verified electronically.
--- NOTE | 2017-08-09 09:57 | HHI.NSPN ---
(Deja Dee) Note Status Status: Progress Note (Deja Dee) Interval History Interval History 66-year-old male who was brought to the ER by [facility] after passing out at a local bar. There was limited history available in view of altered mental status. Patient was found to have subdural hematoma and bitemporal small bleeds /contusions. Dr. Duque from neurosurgery was contacted by ER physician and requested patient be admitted by critical care medicine service to the ICU with consulted for neurosurgery. Patient was accepted for admission by critical care medicine service. Patient did have an elevated EtOH level. When I evaluated the patient in the ER he was drowsy, easily arousable, new he was at the hospital however otherwise was confused and disoriented. He could not tell me how he was brought to the hospital. History was obtained by reviewing records and discussion with ER physician and nursing staff. 08/08: f/u CT Head this morning with new left temporal intraparenchymal hemorrhage. patient appears mildly drowsy but awake - reports he is ok. 08/09: sleeping but arouses briefly, followed only few simple commands, ?aphasic (Deja Dee) Labs, Micro, & Vital Signs Results Date Time Temp Pulse Resp B/P (MAP) Pulse Ox O2 Delivery O2 Flow Rate FiO2 08/09/17 08:00 90 08/09/17 08:00 98.0 81 23 126/90 (102) 95 08/09/17 07:00 98 Nasal Cannula 5.00 08/09/17 06:00 90 08/09/17 04:15 95 Nasal Cannula 5.00 08/09/17 04:00 88 08/09/17 04:00 98.5 88 13 139/63 (88) 98 08/09/17 02:00 72 08/09/17 00:00 88 08/09/17 00:00 99.4 88 24 141/73 (95) 96 08/08/17 22:00 82 08/08/17 20:00 99.4 76 27 130/58 (82) 97 08/08/17 20:00 72 08/08/17 20:00 97 Nasal Cannula 5.00 08/08/17 19:54 98 Nasal Cannula 5.00 08/08/17 18:00 72 08/08/17 16:00 80 08/08/17 16:00 98.2 80 28 119/61 (80) 97 08/08/17 15:20 92 Nasal Cannula 5.00 08/08/17 15:00 68 08/08/17 14:00 82 08/08/17 12:00 98.7 81 28 105/53 (70) 94 08/08/17 12:00 81 08/08/17 10:00 73 Constitutional Vital Signs Date Time Temp Pulse Resp B/P (MAP) Pulse Ox O2 Delivery O2 Flow Rate FiO2 08/09/17 08:00 90 08/09/17 08:00 98.0 81 23 126/90 (102) 95 08/09/17 07:00 98 Nasal Cannula 5.00 08/09/17 06:00 90 08/09/17 04:15 95 Nasal Cannula 5.00 08/09/17 04:00 88 08/09/17 04:00 98.5 88 13 139/63 (88) 98 08/09/17 02:00 72 08/09/17 00:00 88 08/09/17 00:00 99.4 88 24 141/73 (95) 96 08/08/17 22:00 82 08/08/17 20:00 99.4 76 27 130/58 (82) 97 08/08/17 20:00 72 08/08/17 20:00 97 Nasal Cannula 5.00 08/08/17 19:54 98 Nasal Cannula 5.00 08/08/17 18:00 72 08/08/17 16:00 80 08/08/17 16:00 98.2 80 28 119/61 (80) 97 08/08/17 15:20 92 Nasal Cannula 5.00 08/08/17 15:00 68 08/08/17 14:00 82 08/08/17 12:00 98.7 81 28 105/53 (70) 94 08/08/17 12:00 81 08/08/17 10:00 73 (Deja Dee) Review of Systems ROS Limitations: Clinical Condition, Altered Mental Status, Speech Impaired (Deja Dee) Physical Exam Mr. Valentine is sleeping but arouses briefly, only answering "yea" to questions. Follows few simple commands. Cranial nerve examination demonstrates the pupils to be equal, round, and reactive to light, gross eoms movements are intact. Facial motor are symmetric at rest. Motor: moves grossly all four extremities, cannot assess detail exam due to clinical condition Sensory examination: withdraws to pain x 4 Deep tendon reflexes are 1+ in the upper and lower extremities. Mild bilateral Babinski response. Cerebellar examination cannot asses due to clinical condition. (Deja Dee) Mr. Valentine is with eyes open, not following commands. Cranial nerve examination: pupils to be equal, round, and reactive to light. Facial motor are symmetric at rest. Motor: he moves all four extremities purposefully, but does not follow commands Sensory examination: grimaces and withdraws to pain x 4 Deep tendon reflexes are 1+ in the upper and lower extremities. Mild bilateral Babinski response. Cerebellar examination cannot asses due to clinical condition. (Rasheed Duque MD) Medications Current Medications Current Medications Medications (Trade) Dose Ordered Sig/Sameera Route PRN Reason Start Time Stop Time Status Last Admin Dose Admin Potassium Chloride/Sodium Chloride 1,000 ml @ 100 mls/hr Q10H IV 08/07/17 08:00 08/09/17 08:06 Sodium Chloride (NS Flush) 2 ml UNSCH PRN IV FLUSH FLUSH AFTER USING IV ACCESS 08/07/17 07:00 Sodium Chloride (NS Flush) 2 ml BID IV FLUSH 08/07/17 09:00 08/09/17 08:06 Acetaminophen (Tylenol) 650 mg Q6H PRN PO PAIN 1-10 AND/OR FEVER >101F 08/07/17 07:00 Famotidine (Pepcid Inj) 20 mg Q12HR IV PUSH 08/07/17 09:00 08/09/17 08:06 Ondansetron HCl (Zofran Inj) 4 mg Q6H PRN IV PUSH NAUSEA OR VOMITING 08/07/17 07:00 Albuterol/ Ipratropium (Duoneb Neb) 1 ampule Q2HR NEB PRN INH WHEEZING 08/07/17 07:00 Miscellaneous Information 1 Q361D XX 08/07/17 07:00 Chlorhexidine Gluconate (Chlorhexidine 2% Cloth) 3 pack Taper DAILY@04 TOP 08/08/17 04:00 08/04/18 03:59 Chlorhexidine Gluconate (Chlorhexidine 2% Cloth) 3 pack UNSCH PRN TOP HYGIENIC CARE 08/07/17 07:00 Senna/Docusate Sodium (Tess-Colace) 1 tab BID PO 08/07/17 09:00 Magnesium Hydroxide (Milk Of Magnesia Liq) 30 ml Q12H PRN PO Mild constipation 08/07/17 07:00 Sennosides (Senokot) 17.2 mg Q12H PRN PO Moderate constipation 08/07/17 07:00 Bisacodyl (Dulcolax Supp) 10 mg DAILY PRN RECTAL SEVERE CONSITIPATION 08/07/17 07:00 Lactulose (Lactulose Liq) 30 ml DAILY PRN PO SEVERE CONSITIPATION 08/07/17 07:00 Potassium Chloride 100 ml @ 50 mls/hr Q2H PRN IV For Potassium 2.8 - 3.2 mEq/L 08/07/17 07:00 Potassium Chloride 100 ml @ 50 mls/hr Q2H PRN IV For Potassium 2.8 - 3.2 mEq/L 08/07/17 07:00 Potassium Bicarb/ Potassium Chloride (K-Lyte Cl Eff) 50 meq UNSCH PRN PO For Potassium 3.3 - 3.5 mEq/L 08/07/17 07:00 Potassium Chloride 100 ml @ 25 mls/hr UNSCH PRN IV For Potassium 3.3 - 3.5 mEq/L 08/07/17 07:00 Potassium Chloride 100 ml @ 50 mls/hr Q2H PRN IV For Potassium 3.3 - 3.5 mEq/L 08/07/17 07:00 Magnesium Sulfate 4 gm/Sodium Chloride 100 ml @ 50 mls/hr UNSCH PRN IV For Magnesium 0.9 - 1.1 mg/dL 08/07/17 07:00 Magnesium Oxide (Mag-Ox) 800 mg UNSCH PRN PO For Magnesium 1.2 - 1.6 mg/dL 08/07/17 07:00 Magnesium Sulfate 2 gm/Sodium Chloride 100 ml @ 50 mls/hr UNSCH PRN IV For Magnesium 1.2 - 1.6 mg/dL 08/07/17 07:00 Potassium Phosphate (K-Phos) 2,000 mg Q4H PRN PO For Phosphorus < 2.5 mg/dL 08/07/17 07:00 Sodium Phosphate 30 mmol/Sodium Chloride 250 ml @ 42 mls/hr UNSCH PRN IV For Phosphorus < 2.5 mg/dL 08/07/17 07:00 Potassium Phosphate (K-Phos) 2,000 mg UNSCH PRN PO/TUBE SEE LABEL COMMENTS 08/07/17 07:00 Potassium Phosphate 30 mmol/ Sodium Chloride 260 ml @ 42 mls/hr UNSCH PRN IV SEE LABEL COMMENTS 08/07/17 07:00 Insulin Aspart (NovoLOG SUPPLEMENTAL SCALE) 1 Q6HR SQ 08/07/17 08:45 08/08/17 00:09 Dextrose (D50w (Vial) Inj) 25 ml UNSCH PRN IV HYPOGLYCEMIA-SEE COMMENTS 08/07/17 07:00 Glucagon (Glucagon Inj) 1 mg UNSCH PRN IM/SQ HYPOGLYCEMIA-SEE COMMENTS 08/07/17 07:00 Levofloxacin/ Dextrose 150 ml @ 100 mls/hr Q24H IV 08/07/17 10:00 08/09/17 08:06 Metronidazole 100 ml @ 100 mls/hr Q8H IV 08/07/17 10:00 08/09/17 08:06 Albuterol/ Ipratropium (Duoneb Neb) 1 ampule Q6HR NEB NEB 08/07/17 10:00 08/09/17 04:13 Folic Acid (Folate) 1 mg DAILY PO 08/08/17 09:00 08/13/17 08:59 Thiamine HCl (Vitamin B1) 100 mg DAILY PO 08/08/17 09:00 Multivitamins/ Minerals Therapeutic (Theragran M Tab) 1 tab DAILY PO 08/08/17 09:00 08/13/17 08:59 Lorazepam (Ativan Inj) 1 mg Q4H PRN IV PUSH CIWA 8 - 10 08/07/17 09:45 Future Hold 08/08/17 05:47 Lorazepam (Ativan Inj) 2 mg Q2H PRN IV PUSH CIWA 11-14 08/07/17 09:45 Future Hold Lorazepam (Ativan Inj) 2 mg Q15M PRN IV PUSH CIWA > 20 08/07/17 09:45 Future Hold Haloperidol Lactate (Haldol Inj) 2 mg Q15M PRN IM SEE LABEL COMMENTS 08/07/17 09:45 (Deja Dee) Medical Decision Making MDM Remarks 66 y/o male s/p fall due to acute etoh intoxication etoh abuse with history of prior falls and TBI f/u CT Head 08/08 with new left temporal parenchymal hematoma, stable follow up CT 08/09 (Deja Dee) Plan Plan Remarks repeat CT Head today again reviewed, stable left temporal parenchymal hematoma cont nonoperative mgt, cont close neuro checks in ISC cont nonchemical dvt prophylaxis in view of acute ICH Protonix for stress ulcer proph ST for aphasia (Deja Dee) Attending Statement Neuro. neuro checks in a serial fashion. A follow-up CT of the head looks worse. Continue nonoperative treatment. Pulmonary.Continue aggressive pulmonary toilette, nasotracheal suction, and breathing treatments with nebulizers. Alcohol intoxication. Continue Watch for signs of withdrawal The patient has comorbidities including Alcohol intoxication, Diabetes mellitus , Thrombocytopenia, Hepatitis C, which increase the risk for developing complications. Thrombocytopenia. Continue Monitor. if further decreas will transfuse platelets Nutrition. Oral diet ADA 2000 Florentino Renal. Continue monitor closely urine output, BUN and creatinine Diabetes mellitus. Continue Monitor serial Acu checks and SSI as needed in detail ID Continue monitor for signs of infection Continue Protonix for stress ulcer prophylaxis Continue Ron hose and SCD's for DVT prophylaxis. The exam, history, and the medical decision-making described in the above note were completed with the assistance of the mid-level provider. I reviewed and agree with the findings presented. I attest that I had a [id number] encounter with the patient on the same day, and personally performed and documented my assessment and findings in the medical record. (Rasheed Duque MD) Deja Dee Aug 09, 2017 09:56 Rasheed Duque MD Aug 10, 2017 20:23
[2017-08-09 09:59] LABS: BANDS 7 % (0-6); EOSINOPHILS 1 % (0-4); METAMYELOCYTES 1 % (0-1); NEUTROPHIL # MANUAL DIFF 4.8 TH/MM3 (1.8-7.7); PLATELET ESTIMATE SMEAR LOW (NORMAL); PLATELET MORPHOLOGY NORMAL (NORMAL); POLYS (SEG NEUTROPHILS) 74 % (16-70); SCAN/DIFF FINAL DIFF MANUAL; WBC DIFF SAMPLE 100
[2017-08-09] MEDS: HALOPERIDOL LACTATE 5 MG/ML AMP IM PRN (22:46)
[2017-08-10] VITALS (14 sets, daily range): BP systolic 94–131; BP diastolic 53–82; PULSE 67–104; RESP 21–31; TEMP 97.9–98.7; O2SAT 90–100
[2017-08-10] MEDS: metroNIDAZOLE 500 MG INJ 100 ML IV SCH ×3 (02:54→17:05)
[2017-08-10] MEDS: RESP: ALBUTEROL 2.5 MG/IPRATROPIUM 0.5 MG NEB (SCH) NEB ×4 (03:31→20:55)
[2017-08-10 04:19] LABS: AUTOMATED NEUTROPHIL # 4.4 TH/MM3 (1.8-7.7); BASOPHIL # 0.1 TH/MM3 (0-0.2); BASOPHIL % 1.2 % (0.0-2.0); EOSINOPHIL % 0.7 % (0.0-4.0); HEMATOCRIT 42.9 % (39.0-51.0); LYMPH % 10.6 % (9.0-44.0); LYMPHOCYTE # 0.6 TH/MM3 (1.0-4.8); MEAN CELL VOLUME 93.2 FL (80.0-100.0); MEAN CORPUSCULAR HEMOGLOBIN 31.2 PG (27.0-34.0); MEAN CORPUSCULAR HGB CONC 33.5 % (32.0-36.0); MONO % 15.5 % (0.0-8.0); PLATELET COUNT 84 TH/MM3 (150-450); RED CELL DISTRIBUTION WIDTH 15.6 % (11.6-17.2); WHITE BLOOD COUNT 6.1 TH/MM3 (4.0-11.0)
[2017-08-10 04:21] LABS: HEMO FLAGS AUTO DIFF
[2017-08-10 04:46] LABS: POTASSIUM 3.6 MEQ/L (3.5-5.1)
[2017-08-10 05:40] LABS: PLATELET ESTIMATE SMEAR LOW (NORMAL); PLATELET MORPHOLOGY NORMAL (NORMAL); SCAN/DIFF AUTO DIFF CONFIRMED
[2017-08-10] MEDS: NS + KCL 20 MEQ INJ 1,000 ML IV SCH ×2 (06:00→08:26)
[2017-08-10] MEDS: INSULIN ASPART SUPPLEMENTAL SCALE SQ SCH ×4 (06:00→17:53)
[2017-08-10] MEDS: CHLORHEXIDINE GLUCONATE 2 % 1 PACK (2 CLOTHS) TOP SCH (06:08)
--- NOTE | 2017-08-10 06:56 | HHI.PR ---
Subjective Remarks Patient seen and examined this morning. Vitals are stable. No overnight events. Resting comfortably. Objective Vital Signs Date Time Temp Pulse Resp B/P (MAP) Pulse Ox O2 Delivery O2 Flow Rate FiO2 08/10/17 06:00 83 08/10/17 04:00 97.9 73 23 94/55 (68) 93 08/10/17 04:00 72 08/10/17 02:00 77 08/10/17 01:45 93 Nasal Cannula 4.00 08/10/17 00:00 98.2 80 31 119/56 (77) 93 08/10/17 00:00 80 08/09/17 22:00 83 08/09/17 21:19 97 Nasal Cannula 4.00 08/09/17 20:00 98.4 71 23 102/50 (67) 98 08/09/17 20:00 83 08/09/17 19:00 97 Nasal Cannula 4.00 08/09/17 18:00 76 08/09/17 16:38 93 Nasal Cannula 4.00 08/09/17 16:00 98.2 91 17 106/58 (74) 90 08/09/17 16:00 91 08/09/17 14:00 90 08/09/17 12:00 98.6 76 16 116/58 (77) 97 08/09/17 12:00 90 08/09/17 10:00 90 08/09/17 08:00 90 08/09/17 08:00 98.0 81 23 126/90 (102) 95 08/09/17 07:00 98 Nasal Cannula 5.00 I/O 08/09/17 08/09/17 08/09/17 08/10/17 08/10/17 08/10/17 07:00 15:00 23:00 07:00 15:00 23:00 Intake Total 587 ml 450 ml 550 ml 1259 ml Output Total 1900 ml Balance -1313 ml 450 ml 550 ml 1259 ml Intake Oral 0 ml 0 ml 0 ml IV Total 587 ml 450 ml 550 ml 1259 ml Output Urine Total 1900 ml Stool Total 0 ml # Voids 3 3 # Bowel Movements 0 0 Result Diagram: 08/10/17 0323 08/10/17 0323 Imaging Last Impressions Head CT 08/09/17 0000 Signed Impressions: Service Date/Time: Wednesday, August 09, 2017 09:36 - CONCLUSION: 1. No significant interval change. 2. Stable parenchymal hemorrhage in the anterior left temporal lobe. 3. Stable extra-axial, likely subdural, hemorrhage in the anterior temporal and right posterior parieto-occipital mid to high convexities. 4. Stable subtle intraventricular blood products. 5. No intercurrent new hemorrhage, hydrocephalus, or herniation. Galdino Thakur MD Chest X-Ray 08/07/17 0406 Signed Impressions: Service Date/Time: August 04:20 - CONCLUSION: Mild interstitial prominence Rakesh Gandhi MD Objective Remarks GENERAL: resting but awakens easily. SKIN: Warm and dry. HEAD: Normocephalic. EYES: No scleral icterus. No injection or drainage. NECK: Supple, trachea midline. No JVD or lymphadenopathy. CARDIOVASCULAR: Regular rate and rhythm without murmurs, gallops, or rubs. RESPIRATORY: Breath sounds equal bilaterally. No accessory muscle use. GASTROINTESTINAL: Abdomen soft, non-tender, nondistended. MUSCULOSKELETAL: No cyanosis, or edema. No calf tenderness. Neuro: does not answer questions appropriately to me. He moves all extremities. Does not appear to be responding to internal stimuli. A/P Problem List: (1) Subarachnoid hemorrhage ICD Code: I60.9 - Nontraumatic subarachnoid hemorrhage, unspecified Status: Acute (2) Alcohol intoxication ICD Code: F10.929 - Alcohol use, unspecified with intoxication, unspecified Status: Acute Assessment and Plan In summary: This a 66-year-old male who was admitted to the hospital on 08/07 after a fall at a bar that resulted in subdural hematoma and bitemporal small bleeds. Dr. Duque has seen and evaluated the patient. Subdural hematoma: Followed by neurosurgery. Nonoperative treatment. On 08/08 CT showed new left temporal intraparenchymal hemorrhage. Repeat/follow up CT on 08/09 is stable. Patient remained in the unit. NO Chemical DVT prophylaxis. Keppra for seizure prophylaxis. Alcohol intoxication, with possible withdrawal symptoms: Ativan and Librium on hold due to increased drowsiness. Thrombocytopenia: Likely related to chronic alcohol abuse the patient received transfusion on 08/08, platelets are stable. Aspiration pneumonia: See imaging above. Continue Levaquin and Flagyl. When patient is more awake and able to tolerate by mouth we'll switch to by mouth antibiotics. Blood cultures negative to date. Diabetes: Diabetic diet, sliding scale Hep C, can be followed up as an outpatient GI prophylaxis with Pepcid, bilateral SCDs Discharge Planning Patient to remain in ICU. No discharge planning to place at this time. I discussed case with the patients nurse. Problem Qualifiers (1) Alcohol intoxication: Qualified Codes: F10.929 - Alcohol use, unspecified with intoxication, unspecified Umu Odom MD Aug 10, 2017 06:56
[2017-08-10] MEDS: THIAMINE HCL 100 MG TAB PO SCH ×2 (08:07→09:00)
[2017-08-10] MEDS: SODIUM CHLORIDE 0.9% FLUSH 10 ML FLUSH IV FLUSH SCH ×2 (08:07→21:00)
[2017-08-10] MEDS: MULTIVITAMINS/MINERALS THERAPEUTIC TAB PO SCH ×2 (08:07→09:00)
[2017-08-10] MEDS: FOLIC ACID 1 MG TAB PO SCH ×2 (08:07→09:00)
[2017-08-10] MEDS: DOCUSATE SODIUM 50 MG/SENNA 8.6 MG TAB PO SCH ×2 (08:07→21:13)
[2017-08-10] MEDS: FAMOTIDINE 20 MG/2 ML VIAL IV PUSH SCH ×2 (08:07→21:17)
--- NOTE | 2017-08-10 09:57 | HHI.NSPN ---
(Deja Dee) Note Status Status: Progress Note (Deja Dee) Interval History Interval History 66-year-old male who was brought to the ER by [facility] after passing out at a local bar. There was limited history available in view of altered mental status. Patient was found to have subdural hematoma and bitemporal small bleeds /contusions. Dr. Duque from neurosurgery was contacted by ER physician and requested patient be admitted by critical care medicine service to the ICU with consulted for neurosurgery. Patient was accepted for admission by critical care medicine service. Patient did have an elevated EtOH level. When I evaluated the patient in the ER he was drowsy, easily arousable, new he was at the hospital however otherwise was confused and disoriented. He could not tell me how he was brought to the hospital. History was obtained by reviewing records and discussion with ER physician and nursing staff. 08/08: f/u CT Head this morning with new left temporal intraparenchymal hemorrhage. patient appears mildly drowsy but awake - reports he is ok. 08/09: sleeping but arouses briefly, followed only few simple commands, ?aphasic 08/10: remains ?aphasic, moving all four extremities, turning himself over in bed. awake and mumbling (Deja Dee) Labs, Micro, & Vital Signs Results Date Time Temp Pulse Resp B/P (MAP) Pulse Ox O2 Delivery O2 Flow Rate FiO2 08/10/17 08:00 98.7 67 21 124/67 (86) 91 08/10/17 08:00 73 08/10/17 07:00 96 Nasal Cannula 4.00 08/10/17 06:00 83 08/10/17 04:00 97.9 73 23 94/55 (68) 93 08/10/17 04:00 72 08/10/17 02:00 77 08/10/17 01:45 93 Nasal Cannula 4.00 08/10/17 00:00 98.2 80 31 119/56 (77) 93 08/10/17 00:00 80 08/09/17 22:00 83 08/09/17 21:19 97 Nasal Cannula 4.00 08/09/17 20:00 98.4 71 23 102/50 (67) 98 08/09/17 20:00 83 08/09/17 19:00 97 Nasal Cannula 4.00 08/09/17 18:00 76 08/09/17 16:38 93 Nasal Cannula 4.00 08/09/17 16:00 98.2 91 17 106/58 (74) 90 08/09/17 16:00 91 08/09/17 14:00 90 08/09/17 12:00 98.6 76 16 116/58 (77) 97 08/09/17 12:00 90 08/09/17 10:00 90 Constitutional Vital Signs Date Time Temp Pulse Resp B/P (MAP) Pulse Ox O2 Delivery O2 Flow Rate FiO2 08/10/17 08:00 98.7 67 21 124/67 (86) 91 08/10/17 08:00 73 08/10/17 07:00 96 Nasal Cannula 4.00 08/10/17 06:00 83 08/10/17 04:00 97.9 73 23 94/55 (68) 93 08/10/17 04:00 72 08/10/17 02:00 77 08/10/17 01:45 93 Nasal Cannula 4.00 08/10/17 00:00 98.2 80 31 119/56 (77) 93 08/10/17 00:00 80 08/09/17 22:00 83 08/09/17 21:19 97 Nasal Cannula 4.00 08/09/17 20:00 98.4 71 23 102/50 (67) 98 08/09/17 20:00 83 08/09/17 19:00 97 Nasal Cannula 4.00 08/09/17 18:00 76 08/09/17 16:38 93 Nasal Cannula 4.00 08/09/17 16:00 98.2 91 17 106/58 (74) 90 08/09/17 16:00 91 08/09/17 14:00 90 08/09/17 12:00 98.6 76 16 116/58 (77) 97 08/09/17 12:00 90 08/09/17 10:00 90 (Deja Dee) Review of Systems ROS Limitations: Clinical Condition, Altered Mental Status, Speech Impaired (Deja Dee) Physical Exam Mr. Valentine is awake, mumbling, not following commands. Turning himself over in bed Cranial nerve examination: pupils to be equal, round, and reactive to light, gross eoms movements are intact. Facial motor are symmetric at rest. Motor: he moves all four extremities, but does not follow commands Sensory examination: grimaces and withdraws to pain x 4 Deep tendon reflexes are 1+ in the upper and lower extremities. Mild bilateral Babinski response. Cerebellar examination cannot asses due to clinical condition. No tremors or seizure like activities seen (Deja Dee) Mr. Valentine is with eyes open, not following commands. Cranial nerve examination: pupils to be equal, round, and reactive to light. Facial motor are symmetric at rest. Motor: he moves all four extremities purposefully, but does not follow commands Sensory examination: grimaces and withdraws to pain x 4 Deep tendon reflexes are 1+ in the upper and lower extremities. Mild bilateral Babinski response. Cerebellar examination cannot asses due to clinical condition. No seizure like activity seen (Rasheed Duque MD) Medications Current Medications Current Medications Medications (Trade) Dose Ordered Sig/Sameera Route PRN Reason Start Time Stop Time Status Last Admin Dose Admin Potassium Chloride/Sodium Chloride 1,000 ml @ 100 mls/hr Q10H IV 08/07/17 08:00 08/10/17 08:26 Sodium Chloride (NS Flush) 2 ml UNSCH PRN IV FLUSH FLUSH AFTER USING IV ACCESS 08/07/17 07:00 Sodium Chloride (NS Flush) 2 ml BID IV FLUSH 08/07/17 09:00 08/10/17 08:07 Acetaminophen (Tylenol) 650 mg Q6H PRN PO PAIN 1-10 AND/OR FEVER >101F 08/07/17 07:00 Famotidine (Pepcid Inj) 20 mg Q12HR IV PUSH 08/07/17 09:00 08/10/17 08:07 Ondansetron HCl (Zofran Inj) 4 mg Q6H PRN IV PUSH NAUSEA OR VOMITING 08/07/17 07:00 Albuterol/ Ipratropium (Duoneb Neb) 1 ampule Q2HR NEB PRN INH WHEEZING 08/07/17 07:00 Miscellaneous Information 1 Q361D XX 08/07/17 07:00 Chlorhexidine Gluconate (Chlorhexidine 2% Cloth) 3 pack Taper DAILY@04 TOP 08/08/17 04:00 08/04/18 03:59 08/10/17 06:08 Chlorhexidine Gluconate (Chlorhexidine 2% Cloth) 3 pack UNSCH PRN TOP HYGIENIC CARE 08/07/17 07:00 Senna/Docusate Sodium (Tess-Colace) 1 tab BID PO 08/07/17 09:00 08/10/17 08:07 Magnesium Hydroxide (Milk Of Magnesia Liq) 30 ml Q12H PRN PO Mild constipation 08/07/17 07:00 Sennosides (Senokot) 17.2 mg Q12H PRN PO Moderate constipation 08/07/17 07:00 Bisacodyl (Dulcolax Supp) 10 mg DAILY PRN RECTAL SEVERE CONSITIPATION 08/07/17 07:00 Lactulose (Lactulose Liq) 30 ml DAILY PRN PO SEVERE CONSITIPATION 08/07/17 07:00 Potassium Chloride 100 ml @ 50 mls/hr Q2H PRN IV For Potassium 2.8 - 3.2 mEq/L 08/07/17 07:00 Potassium Chloride 100 ml @ 50 mls/hr Q2H PRN IV For Potassium 2.8 - 3.2 mEq/L 08/07/17 07:00 Potassium Bicarb/ Potassium Chloride (K-Lyte Cl Eff) 50 meq UNSCH PRN PO For Potassium 3.3 - 3.5 mEq/L 08/07/17 07:00 Potassium Chloride 100 ml @ 25 mls/hr UNSCH PRN IV For Potassium 3.3 - 3.5 mEq/L 08/07/17 07:00 Potassium Chloride 100 ml @ 50 mls/hr Q2H PRN IV For Potassium 3.3 - 3.5 mEq/L 08/07/17 07:00 Magnesium Sulfate 4 gm/Sodium Chloride 100 ml @ 50 mls/hr UNSCH PRN IV For Magnesium 0.9 - 1.1 mg/dL 08/07/17 07:00 Magnesium Oxide (Mag-Ox) 800 mg UNSCH PRN PO For Magnesium 1.2 - 1.6 mg/dL 08/07/17 07:00 Magnesium Sulfate 2 gm/Sodium Chloride 100 ml @ 50 mls/hr UNSCH PRN IV For Magnesium 1.2 - 1.6 mg/dL 08/07/17 07:00 Potassium Phosphate (K-Phos) 2,000 mg Q4H PRN PO For Phosphorus < 2.5 mg/dL 08/07/17 07:00 Sodium Phosphate 30 mmol/Sodium Chloride 250 ml @ 42 mls/hr UNSCH PRN IV For Phosphorus < 2.5 mg/dL 08/07/17 07:00 Potassium Phosphate (K-Phos) 2,000 mg UNSCH PRN PO/TUBE SEE LABEL COMMENTS 08/07/17 07:00 Potassium Phosphate 30 mmol/ Sodium Chloride 260 ml @ 42 mls/hr UNSCH PRN IV SEE LABEL COMMENTS 08/07/17 07:00 Insulin Aspart (NovoLOG SUPPLEMENTAL SCALE) 1 Q6HR SQ 08/07/17 08:45 08/08/17 00:09 Dextrose (D50w (Vial) Inj) 25 ml UNSCH PRN IV HYPOGLYCEMIA-SEE COMMENTS 08/07/17 07:00 Glucagon (Glucagon Inj) 1 mg UNSCH PRN IM/SQ HYPOGLYCEMIA-SEE COMMENTS 08/07/17 07:00 Levofloxacin/ Dextrose 150 ml @ 100 mls/hr Q24H IV 08/07/17 10:00 08/09/17 08:06 Metronidazole 100 ml @ 100 mls/hr Q8H IV 08/07/17 10:00 08/10/17 09:16 Albuterol/ Ipratropium (Duoneb Neb) 1 ampule Q6HR NEB NEB 08/07/17 10:00 08/10/17 03:31 Folic Acid (Folate) 1 mg DAILY PO 08/08/17 09:00 08/13/17 08:59 Thiamine HCl (Vitamin B1) 100 mg DAILY PO 08/08/17 09:00 Multivitamins/ Minerals Therapeutic (Theragran M Tab) 1 tab DAILY PO 08/08/17 09:00 08/13/17 08:59 Lorazepam (Ativan Inj) 1 mg Q4H PRN IV PUSH CIWA 8 - 10 08/07/17 09:45 Future Hold 08/08/17 05:47 Lorazepam (Ativan Inj) 2 mg Q2H PRN IV PUSH CIWA 11-14 08/07/17 09:45 Future Hold Lorazepam (Ativan Inj) 2 mg Q15M PRN IV PUSH CIWA > 20 08/07/17 09:45 Future Hold Haloperidol Lactate (Haldol Inj) 2 mg Q15M PRN IM SEE LABEL COMMENTS 08/07/17 09:45 08/09/17 22:46 (Deja Dee) Medical Decision Making MDM Remarks 66 y/o male s/p fall due to acute etoh intoxication etoh abuse with history of prior falls and TBI f/u CT Head 08/08 with new left temporal parenchymal hematoma, stable follow up CT 08/09 (Deja Dee) Plan Plan Remarks encourage oral intake, start IV MV, thiamine, FA cont nonoperative mgt, cont close neuro checks in ISC cont nonchemical dvt prophylaxis in view of acute ICH Protonix for stress ulcer proph ST for aphasia medical management dw nursing (Deja Dee) Attending Statement Neuro. Continue neuro checks. Continue nonoperative treatment. Pulmonary.Continue aggressive pulmonary toilette, nasotracheal suction, and breathing treatments with nebulizers. Alcohol intoxication. Continue Watch for signs of withdrawal The patient has comorbidities including Alcohol intoxication, Diabetes mellitus , Thrombocytopenia, Hepatitis C, which increase the risk for developing complications. Thrombocytopenia. Continue Monitor. if further decreas will transfuse platelets Nutrition. Oral diet ADA 2000 Florentino Renal. Continue monitor closely urine output, BUN and creatinine Diabetes mellitus. Continue Monitor serial Acu checks and SSI as needed in detail ID Continue monitor for signs of infection Continue Protonix for stress ulcer prophylaxis Continue Ron hose and SCD's for DVT prophylaxis. The exam, history, and the medical decision-making described in the above note were completed with the assistance of the mid-level provider. I reviewed and agree with the findings presented. I attest that I had a [id number] encounter with the patient on the same day, and personally performed and documented my assessment and findings in the medical record. (Rasheed Duque MD) Deja Dee Aug 10, 2017 09:57 Rasheed Duque MD Aug 10, 2017 20:06
[2017-08-10] MEDS: LEVOFLOXACIN 750 MG PREMIX INJ 150 ML IV SCH (10:28)
[2017-08-10] MEDS ORDERED: MULTIVITAMIN INJ 10 ML, THIAMINE INJ 100 MG, FOLIC ACID INJ 1 MG in SODIUM CHLORID 0.9%... IV SCH (12:00)
[2017-08-10] MEDS: HALOPERIDOL LACTATE 5 MG/ML AMP IM PRN ×2 (15:59→21:12)
[2017-08-11] VITALS (14 sets, daily range): BP systolic 106–146; BP diastolic 51–84; PULSE 64–98; RESP 20–36; TEMP 97.9–98.4; O2SAT 95–99
[2017-08-11] MEDS: HALOPERIDOL LACTATE 5 MG/ML AMP IM PRN (01:09)
[2017-08-11] MEDS: metroNIDAZOLE 500 MG INJ 100 ML IV SCH ×3 (01:38→17:36)
[2017-08-11] MEDS: NS + KCL 20 MEQ INJ 1,000 ML IV SCH (03:04)
[2017-08-11] MEDS: RESP: ALBUTEROL 2.5 MG/IPRATROPIUM 0.5 MG NEB (SCH) NEB ×7 (03:36→21:41)
[2017-08-11] MEDS: CHLORHEXIDINE GLUCONATE 2 % 1 PACK (2 CLOTHS) TOP SCH (04:00)
[2017-08-11] MEDS: INSULIN ASPART SUPPLEMENTAL SCALE SQ SCH ×5 (05:28→23:51)
--- NOTE | 2017-08-11 08:13 | HHI.PR ---
Subjective Remarks The patient was resting comfortably. He did not interact much. He did mumble some words. Discussed with nursing at the bedside. No acute concerns. Objective Vitals Vital Signs Date Time Temp Pulse Resp B/P (MAP) Pulse Ox O2 Delivery O2 Flow Rate FiO2 08/11/17 06:00 86 08/11/17 04:00 98.0 84 28 117/66 (83) 95 08/11/17 04:00 84 08/11/17 02:00 94 08/11/17 00:00 98.2 84 30 146/84 (104) 97 08/11/17 00:00 84 08/10/17 22:00 104 08/10/17 20:56 97 Nasal Cannula 4.00 08/10/17 20:00 98.0 92 31 131/82 (98) 98 08/10/17 20:00 92 08/10/17 19:00 Nasal Cannula 4.00 08/10/17 18:00 81 08/10/17 16:00 98.4 95 27 118/73 (88) 100 08/10/17 16:00 95 08/10/17 14:00 87 08/10/17 12:00 87 08/10/17 12:00 98.4 83 24 94/53 (67) 90 08/10/17 10:00 74 I/O 08/10/17 08/10/17 08/10/17 08/11/17 08/11/17 08/11/17 07:00 15:00 23:00 07:00 15:00 23:00 Intake Total 1259 ml 1516 ml 850 ml Output Total 760 ml Balance 1259 ml 756 ml 850 ml Intake Oral 0 ml 360 ml 250 ml IV Total 1259 ml 1156 ml 600 ml Output Urine Total 760 ml # Voids 3 4 # Bowel Movements 0 Result Diagram: 08/10/17 0323 08/10/17 0323 Imaging Last Impressions Head CT 08/09/17 0000 Signed Impressions: Service Date/Time: Wednesday, August 09, 2017 09:36 - CONCLUSION: 1. No significant interval change. 2. Stable parenchymal hemorrhage in the anterior left temporal lobe. 3. Stable extra-axial, likely subdural, hemorrhage in the anterior temporal and right posterior parieto-occipital mid to high convexities. 4. Stable subtle intraventricular blood products. 5. No intercurrent new hemorrhage, hydrocephalus, or herniation. Galdino Thakur MD Chest X-Ray 08/07/17 0406 Signed Impressions: Service Date/Time: August 04:20 - CONCLUSION: Mild interstitial prominence Rakesh Gandhi MD Objective Remarks GENERAL: Resting but awakens easily. SKIN: Warm and dry. HEAD: Normocephalic. EYES: No scleral icterus. No injection or drainage. NECK: Supple, trachea midline. No JVD or lymphadenopathy. CARDIOVASCULAR: Regular rate and rhythm without murmurs, gallops, or rubs. RESPIRATORY: Bilateral wheezing. GASTROINTESTINAL: Abdomen soft, non-tender, nondistended. MUSCULOSKELETAL: No cyanosis, or edema. No calf tenderness. NEURO: does not answer questions appropriately. He moves all extremities. Medications and IVs Current Medications Medications (Trade) Dose Ordered Sig/Sameera Route Start Time Stop Time Status Last Admin Potassium Chloride/Sodium Chloride 1,000 ml @ 100 mls/hr Q10H IV 08/07/17 08:00 08/11/17 03:04 (NS Flush) 2 ml UNSCH PRN IV FLUSH 08/07/17 07:00 (NS Flush) 2 ml BID IV FLUSH 08/07/17 09:00 08/10/17 21:00 (Tylenol) 650 mg Q6H PRN PO 08/07/17 07:00 (Pepcid Inj) 20 mg Q12HR IV PUSH 08/07/17 09:00 08/10/17 21:17 (Zofran Inj) 4 mg Q6H PRN IV PUSH 08/07/17 07:00 (Duoneb Neb) 1 ampule Q2HR NEB PRN INH 08/07/17 07:00 Miscellaneous Information 1 Q361D XX 08/07/17 07:00 (Chlorhexidine 2% Cloth) 3 pack Taper DAILY@04 TOP 08/08/17 04:00 08/04/18 03:59 08/11/17 04:00 (Chlorhexidine 2% Cloth) 3 pack UNSCH PRN TOP 08/07/17 07:00 (Tess-Colace) 1 tab BID PO 08/07/17 09:00 08/10/17 21:13 (Milk Of Magnesia Liq) 30 ml Q12H PRN PO 08/07/17 07:00 (Senokot) 17.2 mg Q12H PRN PO 08/07/17 07:00 (Dulcolax Supp) 10 mg DAILY PRN RECTAL 08/07/17 07:00 (Lactulose Liq) 30 ml DAILY PRN PO 08/07/17 07:00 Potassium Chloride 100 ml @ 50 mls/hr Q2H PRN IV 08/07/17 07:00 Potassium Chloride 100 ml @ 50 mls/hr Q2H PRN IV 08/07/17 07:00 (K-Lyte Cl Eff) 50 meq UNSCH PRN PO 08/07/17 07:00 Potassium Chloride 100 ml @ 25 mls/hr UNSCH PRN IV 08/07/17 07:00 Potassium Chloride 100 ml @ 50 mls/hr Q2H PRN IV 08/07/17 07:00 Magnesium Sulfate 4 gm/Sodium Chloride 100 ml @ 50 mls/hr UNSCH PRN IV 08/07/17 07:00 (Mag-Ox) 800 mg UNSCH PRN PO 08/07/17 07:00 Magnesium Sulfate 2 gm/Sodium Chloride 100 ml @ 50 mls/hr UNSCH PRN IV 08/07/17 07:00 (K-Phos) 2,000 mg Q4H PRN PO 08/07/17 07:00 Sodium Phosphate 30 mmol/Sodium Chloride 250 ml @ 42 mls/hr UNSCH PRN IV 08/07/17 07:00 (K-Phos) 2,000 mg UNSCH PRN PO/TUBE 08/07/17 07:00 Potassium Phosphate 30 mmol/ Sodium Chloride 260 ml @ 42 mls/hr UNSCH PRN IV 08/07/17 07:00 (NovoLOG SUPPLEMENTAL SCALE) 1 Q6HR SQ 08/07/17 08:45 08/08/17 00:09 (D50w (Vial) Inj) 25 ml UNSCH PRN IV 08/07/17 07:00 (Glucagon Inj) 1 mg UNSCH PRN IM/SQ 08/07/17 07:00 Levofloxacin/ Dextrose 150 ml @ 100 mls/hr Q24H IV 08/07/17 10:00 08/10/17 10:28 Metronidazole 100 ml @ 100 mls/hr Q8H IV 08/07/17 10:00 08/11/17 01:38 (Duoneb Neb) 1 ampule Q6HR NEB NEB 08/07/17 10:00 08/10/17 03:31 (Folate) 1 mg DAILY PO 08/08/17 09:00 08/13/17 08:59 (Vitamin B1) 100 mg DAILY PO 08/08/17 09:00 (Theragran M Tab) 1 tab DAILY PO 08/08/17 09:00 08/13/17 08:59 (Ativan Inj) 1 mg Q4H PRN IV PUSH 08/07/17 09:45 Future Hold 08/08/17 05:47 (Ativan Inj) 2 mg Q2H PRN IV PUSH 08/07/17 09:45 Future Hold (Ativan Inj) 2 mg Q15M PRN IV PUSH 08/07/17 09:45 Future Hold (Haldol Inj) 2 mg Q15M PRN IM 08/07/17 09:45 08/11/17 01:09 Multivitamins 10 ml/Thiamine HCl 100 mg/Folic Acid 1 mg/Sodium Chloride 511.2 ml @ 125 mls/hr Q24H IV 08/10/17 12:00 08/10/17 12:04 A/P Assessment and Plan Subdural hematoma: This a 66-year-old male who was admitted to the hospital on 08/07 after a fall at a bar that resulted in subdural hematoma and bitemporal small bleeds. Dr. Duque (neurosurgery) has seen and evaluated the patient. Nonoperative treatment. On 08/08 CT showed new left temporal intraparenchymal hemorrhage. Repeat/follow up CT on 08/09 is stable. Patient remained in the unit. No Chemical DVT prophylaxis. Carlosra for seizure prophylaxis. Follow up with NS. Add PT/ OT. Alcohol intoxication, with possible withdrawal symptoms: Ativan and Librium on hold due to increased drowsiness. Stable. Thrombocytopenia: Likely related to chronic alcohol abuse. The patient received transfusion on 08/08. Platelets have been stable. Aspiration pneumonia: Continue Levaquin and Flagyl. Blood cultures negative to date. COPD The pt has wheezing on exam. - repeat CXR. - continue nebs and antibiotics. Diabetes: Diabetic diet, sliding scale Hep C, can be followed up as an outpatient GI prophylaxis with Pepcid, bilateral SCDs Discharge Planning Awaiting clinical improvement Damien Bellamy DO Aug 11, 2017 08:13
[2017-08-11] MEDS: SODIUM CHLORIDE 0.9% FLUSH 10 ML FLUSH IV FLUSH SCH ×2 (09:00→20:31)
[2017-08-11] MEDS: FOLIC ACID 1 MG TAB PO SCH (09:13)
[2017-08-11] MEDS: MULTIVITAMINS/MINERALS THERAPEUTIC TAB PO SCH (09:13)
[2017-08-11] MEDS: DOCUSATE SODIUM 50 MG/SENNA 8.6 MG TAB PO SCH ×2 (09:13→20:31)
[2017-08-11] MEDS: LEVOFLOXACIN 750 MG PREMIX INJ 150 ML IV SCH (09:13)
[2017-08-11] MEDS: THIAMINE HCL 100 MG TAB PO SCH (09:13)
[2017-08-11] MEDS: FAMOTIDINE 20 MG/2 ML VIAL IV PUSH SCH ×2 (09:13→20:32)
--- NOTE | 2017-08-11 09:34 | RADRPT ---
EXAM DATE/TIME: 08/11/2017 09:13 [facility] COMPARISON: CHEST SINGLE AP, August 07, 2017, 4:20. INDICATIONS : Short of breath. MEDICAL HISTORY : Cardiovascular disease. Hepatitis C. SURGICAL HISTORY : None. ENCOUNTER: Initial ACUITY: 4 - 6 days PAIN SCORE: Non-responsive. LOCATION: Bilateral chest FINDINGS: Moderate bibasilar parenchymal changes are evident. There is no consolidation or pleural effusion. There is no pneumothorax. CONCLUSION: Improvement. Persistent bibasilar parenchymal changes remain. Costa Jackson MD FACR on August 11, 2017 at 9:31 Board Certified Radiologist. This report was verified electronically.
--- NOTE | 2017-08-11 11:36 | HHI.NSPN ---
(Deja Dee) Note Status Status: Progress Note (Deja Dee) Interval History Interval History 66-year-old male who was brought to the ER by [facility] after passing out at a local bar. There was limited history available in view of altered mental status. Patient was found to have subdural hematoma and bitemporal small bleeds /contusions. Dr. Duque from neurosurgery was contacted by ER physician and requested patient be admitted by critical care medicine service to the ICU with consulted for neurosurgery. Patient was accepted for admission by critical care medicine service. Patient did have an elevated EtOH level. When I evaluated the patient in the ER he was drowsy, easily arousable, new he was at the hospital however otherwise was confused and disoriented. He could not tell me how he was brought to the hospital. History was obtained by reviewing records and discussion with ER physician and nursing staff. 08/08: f/u CT Head this morning with new left temporal intraparenchymal hemorrhage. patient appears mildly drowsy but awake - reports he is ok. 08/09: sleeping but arouses briefly, followed only few simple commands, ?aphasic 08/10: remains ?aphasic, moving all four extremities, turning himself over in bed. awake and mumbling 08/11: nursing reports more awake, restless all night, sleepy during the day. (Deja Dee) Labs, Micro, & Vital Signs Results Date Time Temp Pulse Resp B/P (MAP) Pulse Ox O2 Delivery O2 Flow Rate FiO2 08/11/17 10:00 81 08/11/17 09:00 98 Nasal Cannula 3.00 08/11/17 08:00 98.2 64 22 106/51 (69) 98 08/11/17 08:00 64 08/11/17 07:00 Nasal Cannula 4.00 08/11/17 06:00 86 08/11/17 04:00 98.0 84 28 117/66 (83) 95 08/11/17 04:00 84 08/11/17 02:00 94 08/11/17 00:00 98.2 84 30 146/84 (104) 97 08/11/17 00:00 84 08/10/17 22:00 104 08/10/17 20:56 97 Nasal Cannula 4.00 08/10/17 20:00 98.0 92 31 131/82 (98) 98 08/10/17 20:00 92 08/10/17 19:00 Nasal Cannula 4.00 08/10/17 18:00 81 08/10/17 16:00 98.4 95 27 118/73 (88) 100 08/10/17 16:00 95 08/10/17 14:00 87 08/10/17 12:00 87 08/10/17 12:00 98.4 83 24 94/53 (67) 90 08/12/17 07:00 Intake Total 661 ml Balance 661 ml Constitutional Vital Signs Date Time Temp Pulse Resp B/P (MAP) Pulse Ox O2 Delivery O2 Flow Rate FiO2 08/11/17 10:00 81 08/11/17 09:00 98 Nasal Cannula 3.00 08/11/17 08:00 98.2 64 22 106/51 (69) 98 08/11/17 08:00 64 08/11/17 07:00 Nasal Cannula 4.00 08/11/17 06:00 86 08/11/17 04:00 98.0 84 28 117/66 (83) 95 08/11/17 04:00 84 08/11/17 02:00 94 08/11/17 00:00 98.2 84 30 146/84 (104) 97 08/11/17 00:00 84 08/10/17 22:00 104 08/10/17 20:56 97 Nasal Cannula 4.00 08/10/17 20:00 98.0 92 31 131/82 (98) 98 08/10/17 20:00 92 08/10/17 19:00 Nasal Cannula 4.00 08/10/17 18:00 81 08/10/17 16:00 98.4 95 27 118/73 (88) 100 08/10/17 16:00 95 08/10/17 14:00 87 08/10/17 12:00 87 08/10/17 12:00 98.4 83 24 94/53 (67) 90 08/12/17 07:00 Intake Total 661 ml Balance 661 ml (Deja Dee) Review of Systems ROS Limitations: Clinical Condition, Speech Impaired (Deja Dee) Physical Exam Mr. Valentine is with eyes open, not following commands. Turning himself over in bed and pulling his blanket back up over him Cranial nerve examination: pupils to be equal, round, and reactive to light. Facial motor are symmetric at rest. Motor: he moves all four extremities purposefully, but does not follow commands Sensory examination: grimaces and withdraws to pain x 4 Deep tendon reflexes are 1+ in the upper and lower extremities. Mild bilateral Babinski response. Cerebellar examination cannot asses due to clinical condition. No tremors or seizure like activities seen (Deja Dee) Mr. Valentine is with eyes open, not following commands. Cranial nerve examination: pupils to be equal, round, and reactive to light. Facial motor are symmetric at rest. Motor: he moves all four extremities purposefully, but does not follow commands Sensory examination: grimaces and withdraws to pain x 4 Deep tendon reflexes are 1+ in the upper and lower extremities. Mild bilateral Babinski response. Cerebellar examination cannot asses due to clinical condition. No seizure like activity seen (Rasheed Duque MD) Medications Current Medications Current Medications Medications (Trade) Dose Ordered Sig/Sameera Route PRN Reason Start Time Stop Time Status Last Admin Dose Admin Sodium Chloride (NS Flush) 2 ml UNSCH PRN IV FLUSH FLUSH AFTER USING IV ACCESS 08/07/17 07:00 Sodium Chloride (NS Flush) 2 ml BID IV FLUSH 08/07/17 09:00 08/11/17 09:00 Acetaminophen (Tylenol) 650 mg Q6H PRN PO PAIN 1-10 AND/OR FEVER >101F 08/07/17 07:00 Famotidine (Pepcid Inj) 20 mg Q12HR IV PUSH 08/07/17 09:00 08/11/17 09:13 Ondansetron HCl (Zofran Inj) 4 mg Q6H PRN IV PUSH NAUSEA OR VOMITING 08/07/17 07:00 Albuterol/ Ipratropium (Duoneb Neb) 1 ampule Q2HR NEB PRN INH WHEEZING 08/07/17 07:00 Miscellaneous Information 1 Q361D XX 08/07/17 07:00 Chlorhexidine Gluconate (Chlorhexidine 2% Cloth) 3 pack Taper DAILY@04 TOP 08/08/17 04:00 08/04/18 03:59 08/11/17 04:00 Chlorhexidine Gluconate (Chlorhexidine 2% Cloth) 3 pack UNSCH PRN TOP HYGIENIC CARE 08/07/17 07:00 Senna/Docusate Sodium (Tess-Colace) 1 tab BID PO 08/07/17 09:00 08/11/17 09:13 Magnesium Hydroxide (Milk Of Magnesia Liq) 30 ml Q12H PRN PO Mild constipation 08/07/17 07:00 Sennosides (Senokot) 17.2 mg Q12H PRN PO Moderate constipation 08/07/17 07:00 Bisacodyl (Dulcolax Supp) 10 mg DAILY PRN RECTAL SEVERE CONSITIPATION 08/07/17 07:00 Lactulose (Lactulose Liq) 30 ml DAILY PRN PO SEVERE CONSITIPATION 08/07/17 07:00 Potassium Chloride 100 ml @ 50 mls/hr Q2H PRN IV For Potassium 2.8 - 3.2 mEq/L 08/07/17 07:00 Potassium Chloride 100 ml @ 50 mls/hr Q2H PRN IV For Potassium 2.8 - 3.2 mEq/L 08/07/17 07:00 Potassium Bicarb/ Potassium Chloride (K-Lyte Cl Eff) 50 meq UNSCH PRN PO For Potassium 3.3 - 3.5 mEq/L 08/07/17 07:00 Potassium Chloride 100 ml @ 25 mls/hr UNSCH PRN IV For Potassium 3.3 - 3.5 mEq/L 08/07/17 07:00 Potassium Chloride 100 ml @ 50 mls/hr Q2H PRN IV For Potassium 3.3 - 3.5 mEq/L 08/07/17 07:00 Magnesium Sulfate 4 gm/Sodium Chloride 100 ml @ 50 mls/hr UNSCH PRN IV For Magnesium 0.9 - 1.1 mg/dL 08/07/17 07:00 Magnesium Oxide (Mag-Ox) 800 mg UNSCH PRN PO For Magnesium 1.2 - 1.6 mg/dL 08/07/17 07:00 Magnesium Sulfate 2 gm/Sodium Chloride 100 ml @ 50 mls/hr UNSCH PRN IV For Magnesium 1.2 - 1.6 mg/dL 08/07/17 07:00 Potassium Phosphate (K-Phos) 2,000 mg Q4H PRN PO For Phosphorus < 2.5 mg/dL 08/07/17 07:00 Sodium Phosphate 30 mmol/Sodium Chloride 250 ml @ 42 mls/hr UNSCH PRN IV For Phosphorus < 2.5 mg/dL 08/07/17 07:00 Potassium Phosphate (K-Phos) 2,000 mg UNSCH PRN PO/TUBE SEE LABEL COMMENTS 08/07/17 07:00 Potassium Phosphate 30 mmol/ Sodium Chloride 260 ml @ 42 mls/hr UNSCH PRN IV SEE LABEL COMMENTS 08/07/17 07:00 Insulin Aspart (NovoLOG SUPPLEMENTAL SCALE) 1 Q6HR SQ 08/07/17 08:45 08/08/17 00:09 Dextrose (D50w (Vial) Inj) 25 ml UNSCH PRN IV HYPOGLYCEMIA-SEE COMMENTS 08/07/17 07:00 Glucagon (Glucagon Inj) 1 mg UNSCH PRN IM/SQ HYPOGLYCEMIA-SEE COMMENTS 08/07/17 07:00 Levofloxacin/ Dextrose 150 ml @ 100 mls/hr Q24H IV 08/07/17 10:00 08/11/17 09:13 Metronidazole 100 ml @ 100 mls/hr Q8H IV 08/07/17 10:00 08/11/17 09:13 Folic Acid (Folate) 1 mg DAILY PO 08/08/17 09:00 08/13/17 08:59 08/11/17 09:13 Thiamine HCl (Vitamin B1) 100 mg DAILY PO 08/08/17 09:00 08/11/17 09:13 Multivitamins/ Minerals Therapeutic (Theragran M Tab) 1 tab DAILY PO 08/08/17 09:00 08/13/17 08:59 08/11/17 09:13 Lorazepam (Ativan Inj) 1 mg Q4H PRN IV PUSH CIWA 8 - 10 08/07/17 09:45 Future Hold 08/08/17 05:47 Lorazepam (Ativan Inj) 2 mg Q2H PRN IV PUSH CIWA 11-14 08/07/17 09:45 Future Hold Lorazepam (Ativan Inj) 2 mg Q15M PRN IV PUSH CIWA > 20 08/07/17 09:45 Future Hold Haloperidol Lactate (Haldol Inj) 2 mg Q15M PRN IM SEE LABEL COMMENTS 08/07/17 09:45 08/11/17 01:09 Albuterol/ Ipratropium (Duoneb Neb) 1 ampule Q6HR NEB NEB 08/11/17 10:00 08/11/17 08:59 Albuterol/ Ipratropium (Duoneb Neb) 1 ampule Q6HR NEB NEB 08/11/17 10:00 (Deja Dee) Medical Decision Making MDM Remarks 66 y/o male s/p fall due to acute etoh intoxication etoh abuse with history of prior falls and TBI f/u CT Head 08/08 with new left temporal parenchymal hematoma, stable follow up CT 08/09 pt remains aphasic, drowsy during the day, and awake at night - poss . otherwise neuro exam stable (Deja Dee) Plan Plan Remarks cont supportive care MV, thiamine, FA cont nonoperative mgt, clear from standpoint to transfer out of unit to 5N near nursing station cont nonchemical dvt prophylaxis in view of acute ICH Protonix for stress ulcer proph ST for aphasia, PT, OT - encourage mobilization OOB medical management dw nursing (Deja Dee) Attending Statement Neuro. Continue neuro checks. Continue nonoperative treatment. Pulmonary.Continue aggressive pulmonary toilette, nasotracheal suction, and breathing treatments with nebulizers. Alcohol intoxication. Continue Watch for signs of withdrawal The patient has comorbidities including Alcohol intoxication, Diabetes mellitus , Thrombocytopenia, Hepatitis C, which increase the risk for developing complications. Thrombocytopenia. Continue Monitor. if further decreas will transfuse platelets Nutrition. Oral diet ADA 2000 Florentino Renal. Continue monitor closely urine output, BUN and creatinine Diabetes mellitus. Continue Monitor serial Acu checks and SSI as needed in detail ID Continue monitor for signs of infection Continue Protonix for stress ulcer prophylaxis Continue Ron hose and SCD's for DVT prophylaxis. The exam, history, and the medical decision-making described in the above note were completed with the assistance of the mid-level provider. I reviewed and agree with the findings presented. I attest that I had a [id number] encounter with the patient on the same day, and personally performed and documented my assessment and findings in the medical record. (Rasheed Duque MD) Deja Dee Aug 11, 2017 11:36 Rasheed Duque MD Aug 11, 2017 11:57
[2017-08-12] VITALS (13 sets, daily range): BP systolic 118–145; BP diastolic 57–81; PULSE 84–114; RESP 20–30; TEMP 97.7–98.5; O2SAT 96–100
[2017-08-12] MEDS: metroNIDAZOLE 500 MG INJ 100 ML IV SCH ×3 (01:40→17:41)
[2017-08-12] MEDS: CHLORHEXIDINE GLUCONATE 2 % 1 PACK (2 CLOTHS) TOP SCH (03:21)
[2017-08-12] MEDS: RESP: ALBUTEROL 2.5 MG/IPRATROPIUM 0.5 MG NEB (SCH) NEB ×6 (03:41→21:12)
[2017-08-12 05:14] LABS: HEMATOCRIT 42.7 % (39.0-51.0); MEAN CELL VOLUME 93.1 FL (80.0-100.0); MEAN CORPUSCULAR HEMOGLOBIN 32.3 PG (27.0-34.0); MEAN CORPUSCULAR HGB CONC 34.7 % (32.0-36.0); PLATELET COUNT 75 TH/MM3 (150-450); RED BLOOD COUNT 4.59 MIL/MM3 (4.50-5.90); RED CELL DISTRIBUTION WIDTH 16.1 % (11.6-17.2); WHITE BLOOD COUNT 5.7 TH/MM3 (4.0-11.0)
[2017-08-12 05:21] LABS: REVIEW FLAG FINAL
[2017-08-12] MEDS: INSULIN ASPART SUPPLEMENTAL SCALE SQ SCH ×4 (05:32→23:12)
[2017-08-12 05:40] LABS: BICARBONATE 24.9 MEQ/L (21.0-32.0); MAGNESIUM 2.4 MG/DL (1.5-2.5); POTASSIUM 3.4 MEQ/L (3.5-5.1)
[2017-08-12] MEDS: MULTIVITAMINS/MINERALS THERAPEUTIC TAB PO SCH (08:40)
[2017-08-12] MEDS: DOCUSATE SODIUM 50 MG/SENNA 8.6 MG TAB PO SCH ×2 (08:40→21:18)
[2017-08-12] MEDS: FAMOTIDINE 20 MG/2 ML VIAL IV PUSH SCH ×2 (08:40→21:18)
[2017-08-12] MEDS: SODIUM CHLORIDE 0.9% FLUSH 10 ML FLUSH IV FLUSH SCH ×2 (08:40→21:00)
[2017-08-12] MEDS: FOLIC ACID 1 MG TAB PO SCH (08:40)
[2017-08-12] MEDS: THIAMINE HCL 100 MG TAB PO SCH (08:40)
[2017-08-12] MEDS: LEVOFLOXACIN 750 MG PREMIX INJ 150 ML IV SCH (10:45)
[2017-08-12] MEDS: HALOPERIDOL LACTATE 5 MG/ML AMP IM PRN ×2 (11:02→22:38)
--- NOTE | 2017-08-12 11:12 | HHI.PR ---
Subjective Remarks The patient was resting in bed. He was in restraints. Discussed with nursing at the bedside. He has been agitated, requiring Haldol. He had no acute complaints. He mumbled a few words. Objective Vitals Vital Signs Date Time Temp Pulse Resp B/P (MAP) Pulse Ox O2 Delivery O2 Flow Rate FiO2 08/12/17 10:00 91 08/12/17 08:00 88 08/12/17 08:00 97.7 88 22 142/74 (96) 97 08/12/17 07:00 99 Nasal Cannula 4.00 08/12/17 06:00 102 08/12/17 04:00 98.5 114 30 136/81 (99) 97 08/12/17 04:00 114 08/12/17 02:00 102 08/12/17 00:00 102 08/12/17 00:00 98.1 102 30 122/57 (78) 98 08/11/17 22:00 98 08/11/17 21:42 99 Nasal Cannula 3.00 08/11/17 20:00 97.9 94 36 119/56 (77) 98 08/11/17 20:00 94 08/11/17 19:00 Nasal Cannula 4.00 08/11/17 18:00 89 08/11/17 16:00 90 08/11/17 16:00 98.4 90 23 120/69 (86) 96 08/11/17 14:00 74 08/11/17 12:00 98.1 67 20 113/57 (75) 98 08/11/17 12:00 67 I/O 08/11/17 08/11/17 08/11/17 08/12/17 08/12/17 08/12/17 07:00 15:00 23:00 07:00 15:00 23:00 Intake Total 850 ml 661 ml 460 ml 220 ml Output Total 1350 ml 800 ml Balance 850 ml 661 ml -890 ml -580 ml Intake Oral 250 ml 360 ml 120 ml IV Total 600 ml 661 ml 100 ml 100 ml Output Urine Total 1350 ml 800 ml # Voids 4 4 # Bowel Movements 0 0 0 Result Diagram: 08/12/17 0350 08/12/17 0350 Imaging Last Impressions Chest X-Ray 08/11/17 0000 Signed Impressions: Service Date/Time: Friday, August 11, 2017 09:13 - CONCLUSION: Improvement. Persistent bibasilar parenchymal changes remain. Costa Jackson MD FACR Head CT 08/09/17 0000 Signed Impressions: Service Date/Time: Wednesday, August 09, 2017 09:36 - CONCLUSION: 1. No significant interval change. 2. Stable parenchymal hemorrhage in the anterior left temporal lobe. 3. Stable extra-axial, likely subdural, hemorrhage in the anterior temporal and right posterior parieto-occipital mid to high convexities. 4. Stable subtle intraventricular blood products. 5. No intercurrent new hemorrhage, hydrocephalus, or herniation. Galdino Thakur MD Objective Remarks GENERAL: Resting but awakens easily. SKIN: Warm and dry. HEAD: Normocephalic. EYES: No scleral icterus. No injection or drainage. NECK: Supple, trachea midline. No JVD or lymphadenopathy. CARDIOVASCULAR: Regular rate and rhythm without murmurs, gallops, or rubs. RESPIRATORY: Bilateral wheezing. GASTROINTESTINAL: Abdomen soft, non-tender, nondistended. MUSCULOSKELETAL: No cyanosis, or edema. No calf tenderness. NEURO: does not answer questions appropriately. He moves all extremities. Medications and IVs Current Medications Medications (Trade) Dose Ordered Sig/Sameera Route Start Time Stop Time Status Last Admin (NS Flush) 2 ml UNSCH PRN IV FLUSH 08/07/17 07:00 (NS Flush) 2 ml BID IV FLUSH 08/07/17 09:00 08/12/17 08:40 (Tylenol) 650 mg Q6H PRN PO 08/07/17 07:00 (Pepcid Inj) 20 mg Q12HR IV PUSH 08/07/17 09:00 08/12/17 08:40 (Zofran Inj) 4 mg Q6H PRN IV PUSH 08/07/17 07:00 (Duoneb Neb) 1 ampule Q2HR NEB PRN INH 08/07/17 07:00 Miscellaneous Information 1 Q361D XX 08/07/17 07:00 (Chlorhexidine 2% Cloth) 3 pack Taper DAILY@04 TOP 08/08/17 04:00 08/04/18 03:59 08/11/17 04:00 (Chlorhexidine 2% Cloth) 3 pack UNSCH PRN TOP 08/07/17 07:00 (Tess-Colace) 1 tab BID PO 08/07/17 09:00 08/12/17 08:40 (Milk Of Magnesia Liq) 30 ml Q12H PRN PO 08/07/17 07:00 (Senokot) 17.2 mg Q12H PRN PO 08/07/17 07:00 (Dulcolax Supp) 10 mg DAILY PRN RECTAL 08/07/17 07:00 (Lactulose Liq) 30 ml DAILY PRN PO 08/07/17 07:00 Potassium Chloride 100 ml @ 50 mls/hr Q2H PRN IV 08/07/17 07:00 Potassium Chloride 100 ml @ 50 mls/hr Q2H PRN IV 08/07/17 07:00 (K-Lyte Cl Eff) 50 meq UNSCH PRN PO 08/07/17 07:00 Potassium Chloride 100 ml @ 25 mls/hr UNSCH PRN IV 08/07/17 07:00 Potassium Chloride 100 ml @ 50 mls/hr Q2H PRN IV 08/07/17 07:00 Magnesium Sulfate 4 gm/Sodium Chloride 100 ml @ 50 mls/hr UNSCH PRN IV 08/07/17 07:00 (Mag-Ox) 800 mg UNSCH PRN PO 08/07/17 07:00 Magnesium Sulfate 2 gm/Sodium Chloride 100 ml @ 50 mls/hr UNSCH PRN IV 08/07/17 07:00 (K-Phos) 2,000 mg Q4H PRN PO 08/07/17 07:00 Sodium Phosphate 30 mmol/Sodium Chloride 250 ml @ 42 mls/hr UNSCH PRN IV 08/07/17 07:00 (K-Phos) 2,000 mg UNSCH PRN PO/TUBE 08/07/17 07:00 Potassium Phosphate 30 mmol/ Sodium Chloride 260 ml @ 42 mls/hr UNSCH PRN IV 08/07/17 07:00 (NovoLOG SUPPLEMENTAL SCALE) 1 Q6HR SQ 08/07/17 08:45 08/12/17 05:32 (D50w (Vial) Inj) 25 ml UNSCH PRN IV 08/07/17 07:00 (Glucagon Inj) 1 mg UNSCH PRN IM/SQ 08/07/17 07:00 Levofloxacin/ Dextrose 150 ml @ 100 mls/hr Q24H IV 08/07/17 10:00 08/12/17 10:45 Metronidazole 100 ml @ 100 mls/hr Q8H IV 08/07/17 10:00 08/12/17 10:45 (Folate) 1 mg DAILY PO 08/08/17 09:00 08/13/17 08:59 08/12/17 08:40 (Vitamin B1) 100 mg DAILY PO 08/08/17 09:00 08/12/17 08:40 (Theragran M Tab) 1 tab DAILY PO 08/08/17 09:00 08/13/17 08:59 08/12/17 08:40 (Ativan Inj) 1 mg Q4H PRN IV PUSH 08/07/17 09:45 Future Hold 08/08/17 05:47 (Ativan Inj) 2 mg Q2H PRN IV PUSH 08/07/17 09:45 Future Hold (Ativan Inj) 2 mg Q15M PRN IV PUSH 08/07/17 09:45 Future Hold (Haldol Inj) 2 mg Q15M PRN IM 08/07/17 09:45 08/12/17 11:02 (Duoneb Neb) 1 ampule Q6HR NEB NEB 08/11/17 10:00 08/12/17 09:15 (Duoneb Neb) 1 ampule Q6HR NEB NEB 08/11/17 10:00 08/12/17 09:15 A/P Assessment and Plan Subdural hematoma: This a 66-year-old male who was admitted to the hospital on 08/07 after a fall at a bar that resulted in subdural hematoma and bitemporal small bleeds. Dr. Duque (neurosurgery) has seen and evaluated the patient. Nonoperative treatment. On 08/08 CT showed new left temporal intraparenchymal hemorrhage. Repeat/follow up CT on 08/09 is stable. - No Chemical DVT prophylaxis. - Keppra for seizure prophylaxis. - Follow up with NS. - Add PT/ OT. - check an EKG to see if Seroquel can be added for agitation. Restraints for now. Alcohol intoxication, with possible withdrawal symptoms: Ativan and Librium on hold due to increased drowsiness. - Stable. Thrombocytopenia: Likely related to chronic alcohol abuse. The patient received transfusion on 08/08. - Platelets have been stable. Monitor. Aspiration pneumonia: - Continue Levaquin and Flagyl. Blood cultures negative to date. COPD The pt has wheezing on exam. Repeat CXR with improvement. - continue nebs and antibiotics. - wean O2 as tolerated. - check an ABG. Diabetes: Diabetic diet, sliding scale Hep C, can be followed up as an outpatient GI prophylaxis with Pepcid, bilateral SCDs Discharge Planning Awaiting clinical improvement. Transfer to floor. Damien Bellamy DO Aug 12, 2017 11:12
[2017-08-12] MEDS ORDERED: POTASSIUM CHLORIDE 10 MEQ CAP PO ONE (11:15)
[2017-08-12 11:47] LABS: BLOOD GAS BASE EXCESS 3.1 mmol/L (-2-2); BLOOD GAS CARBOXYHEMOGLOBIN 1.9 % (0-4); BLOOD GAS HCO3 27 mmol/L (22-26); BLOOD GAS METHEMOGLOBIN 0.7 % (0-2); BLOOD GAS O2 HGB SATURATION 93 % (90-100); BLOOD GAS OXYGEN CONTENT 19.2 Vol % (12.0-20.0); BLOOD GAS PCO2 39 mmHg (38-42); BLOOD GAS PO2 75 mmHg (61-120); BLOOD GAS TOTAL HGB 14.8 G/DL (12.0-16.0); CRITICAL VALUE NO; DRAW SITE RT RADIAL; LITER FLOW 3 L/M; NUMBER OF ARTERIAL PUNCTURES 1; OXYGEN DEVICE NASAL CANNULA; STAT NO; TEMP CORR TO 98.6; ULNAR PULSE PRESENT
--- NOTE | 2017-08-12 12:23 | HHI.NSPN ---
(Deja Dee) Note Status Status: Progress Note (Deja Dee) Interval History Interval History 66-year-old male who was brought to the ER by [facility] after passing out at a local bar. There was limited history available in view of altered mental status. Patient was found to have subdural hematoma and bitemporal small bleeds /contusions. Dr. Duque from neurosurgery was contacted by ER physician and requested patient be admitted by critical care medicine service to the ICU with consulted for neurosurgery. Patient was accepted for admission by critical care medicine service. Patient did have an elevated EtOH level. When I evaluated the patient in the ER he was drowsy, easily arousable, new he was at the hospital however otherwise was confused and disoriented. He could not tell me how he was brought to the hospital. History was obtained by reviewing records and discussion with ER physician and nursing staff. 08/08: f/u CT Head this morning with new left temporal intraparenchymal hemorrhage. patient appears mildly drowsy but awake - reports he is ok. 08/09: sleeping but arouses briefly, followed only few simple commands, ?aphasic 08/10: remains ?aphasic, moving all four extremities, turning himself over in bed. awake and mumbling 08/11: nursing reports more awake, restless all night, sleepy during the day. 08/12: more awake this morning, saying "hello" and smiling. (Deja Dee) Labs, Micro, & Vital Signs Results Date Time Temp Pulse Resp B/P (MAP) Pulse Ox O2 Delivery O2 Flow Rate FiO2 08/12/17 10:00 91 08/12/17 08:00 88 08/12/17 08:00 97.7 88 22 142/74 (96) 97 08/12/17 07:00 99 Nasal Cannula 4.00 08/12/17 06:00 102 08/12/17 04:00 98.5 114 30 136/81 (99) 97 08/12/17 04:00 114 08/12/17 02:00 102 08/12/17 00:00 102 08/12/17 00:00 98.1 102 30 122/57 (78) 98 08/11/17 22:00 98 08/11/17 21:42 99 Nasal Cannula 3.00 08/11/17 20:00 97.9 94 36 119/56 (77) 98 08/11/17 20:00 94 08/11/17 19:00 Nasal Cannula 4.00 08/11/17 18:00 89 08/11/17 16:00 90 08/11/17 16:00 98.4 90 23 120/69 (86) 96 08/11/17 14:00 74 Constitutional Vital Signs Date Time Temp Pulse Resp B/P (MAP) Pulse Ox O2 Delivery O2 Flow Rate FiO2 08/12/17 10:00 91 08/12/17 08:00 88 08/12/17 08:00 97.7 88 22 142/74 (96) 97 08/12/17 07:00 99 Nasal Cannula 4.00 08/12/17 06:00 102 08/12/17 04:00 98.5 114 30 136/81 (99) 97 08/12/17 04:00 114 08/12/17 02:00 102 08/12/17 00:00 102 08/12/17 00:00 98.1 102 30 122/57 (78) 98 08/11/17 22:00 98 08/11/17 21:42 99 Nasal Cannula 3.00 08/11/17 20:00 97.9 94 36 119/56 (77) 98 08/11/17 20:00 94 08/11/17 19:00 Nasal Cannula 4.00 08/11/17 18:00 89 08/11/17 16:00 90 08/11/17 16:00 98.4 90 23 120/69 (86) 96 08/11/17 14:00 74 (Deja Dee) Review of Systems ROS Limitations: Clinical Condition, Altered Mental Status, Speech Impaired (Deja Dee) Physical Exam Mr. Valentine is awake, smiles. did not answer to name. said "hello", did not follow commands. Cranial nerve examination: pupils equal, round, and reactive to light. Facial motor are symmetric at rest. Motor: he moves all four extremities purposefully, but does not follow commands , on soft restraints Sensory examination: localizes to pain x 4 Cerebellar examination cannot asses due to clinical condition. (Deja Dee) Mr. Valentine is with eyes open, not following commands. Cranial nerve examination: pupils to be equal, round, and reactive to light. Facial motor are symmetric at rest. Motor: he moves all four extremities purposefully, but does not follow commands Sensory examination: grimaces and withdraws to pain x 4 Deep tendon reflexes are 1+ in the upper and lower extremities. Mild bilateral Babinski response. Cerebellar examination cannot asses due to clinical condition. (Rasheed Duque MD) Medications Current Medications Current Medications Medications (Trade) Dose Ordered Sig/Sameera Route PRN Reason Start Time Stop Time Status Last Admin Dose Admin Sodium Chloride (NS Flush) 2 ml UNSCH PRN IV FLUSH FLUSH AFTER USING IV ACCESS 08/07/17 07:00 Sodium Chloride (NS Flush) 2 ml BID IV FLUSH 08/07/17 09:00 08/12/17 08:40 Acetaminophen (Tylenol) 650 mg Q6H PRN PO PAIN 1-10 AND/OR FEVER >101F 08/07/17 07:00 Famotidine (Pepcid Inj) 20 mg Q12HR IV PUSH 08/07/17 09:00 08/12/17 08:40 Ondansetron HCl (Zofran Inj) 4 mg Q6H PRN IV PUSH NAUSEA OR VOMITING 08/07/17 07:00 Albuterol/ Ipratropium (Duoneb Neb) 1 ampule Q2HR NEB PRN INH WHEEZING 08/07/17 07:00 Miscellaneous Information 1 Q361D XX 08/07/17 07:00 Chlorhexidine Gluconate (Chlorhexidine 2% Cloth) 3 pack Taper DAILY@04 TOP 08/08/17 04:00 08/04/18 03:59 08/11/17 04:00 Chlorhexidine Gluconate (Chlorhexidine 2% Cloth) 3 pack UNSCH PRN TOP HYGIENIC CARE 08/07/17 07:00 Senna/Docusate Sodium (Tess-Colace) 1 tab BID PO 08/07/17 09:00 08/12/17 08:40 Magnesium Hydroxide (Milk Of Magnesia Liq) 30 ml Q12H PRN PO Mild constipation 08/07/17 07:00 Sennosides (Senokot) 17.2 mg Q12H PRN PO Moderate constipation 08/07/17 07:00 Bisacodyl (Dulcolax Supp) 10 mg DAILY PRN RECTAL SEVERE CONSITIPATION 08/07/17 07:00 Lactulose (Lactulose Liq) 30 ml DAILY PRN PO SEVERE CONSITIPATION 08/07/17 07:00 Potassium Chloride 100 ml @ 50 mls/hr Q2H PRN IV For Potassium 2.8 - 3.2 mEq/L 08/07/17 07:00 Potassium Chloride 100 ml @ 50 mls/hr Q2H PRN IV For Potassium 2.8 - 3.2 mEq/L 08/07/17 07:00 Potassium Bicarb/ Potassium Chloride (K-Lyte Cl Eff) 50 meq UNSCH PRN PO For Potassium 3.3 - 3.5 mEq/L 08/07/17 07:00 08/12/17 11:16 Potassium Chloride 100 ml @ 25 mls/hr UNSCH PRN IV For Potassium 3.3 - 3.5 mEq/L 08/07/17 07:00 Potassium Chloride 100 ml @ 50 mls/hr Q2H PRN IV For Potassium 3.3 - 3.5 mEq/L 08/07/17 07:00 Magnesium Sulfate 4 gm/Sodium Chloride 100 ml @ 50 mls/hr UNSCH PRN IV For Magnesium 0.9 - 1.1 mg/dL 08/07/17 07:00 Magnesium Oxide (Mag-Ox) 800 mg UNSCH PRN PO For Magnesium 1.2 - 1.6 mg/dL 08/07/17 07:00 Magnesium Sulfate 2 gm/Sodium Chloride 100 ml @ 50 mls/hr UNSCH PRN IV For Magnesium 1.2 - 1.6 mg/dL 08/07/17 07:00 Potassium Phosphate (K-Phos) 2,000 mg Q4H PRN PO For Phosphorus < 2.5 mg/dL 08/07/17 07:00 Sodium Phosphate 30 mmol/Sodium Chloride 250 ml @ 42 mls/hr UNSCH PRN IV For Phosphorus < 2.5 mg/dL 08/07/17 07:00 Potassium Phosphate (K-Phos) 2,000 mg UNSCH PRN PO/TUBE SEE LABEL COMMENTS 08/07/17 07:00 Potassium Phosphate 30 mmol/ Sodium Chloride 260 ml @ 42 mls/hr UNSCH PRN IV SEE LABEL COMMENTS 08/07/17 07:00 Insulin Aspart (NovoLOG SUPPLEMENTAL SCALE) 1 Q6HR SQ 08/07/17 08:45 08/12/17 05:32 Dextrose (D50w (Vial) Inj) 25 ml UNSCH PRN IV HYPOGLYCEMIA-SEE COMMENTS 08/07/17 07:00 Glucagon (Glucagon Inj) 1 mg UNSCH PRN IM/SQ HYPOGLYCEMIA-SEE COMMENTS 08/07/17 07:00 Levofloxacin/ Dextrose 150 ml @ 100 mls/hr Q24H IV 08/07/17 10:00 08/12/17 10:45 Metronidazole 100 ml @ 100 mls/hr Q8H IV 08/07/17 10:00 08/12/17 10:45 Folic Acid (Folate) 1 mg DAILY PO 08/08/17 09:00 08/13/17 08:59 08/12/17 08:40 Thiamine HCl (Vitamin B1) 100 mg DAILY PO 08/08/17 09:00 08/12/17 08:40 Multivitamins/ Minerals Therapeutic (Theragran M Tab) 1 tab DAILY PO 08/08/17 09:00 08/13/17 08:59 08/12/17 08:40 Lorazepam (Ativan Inj) 1 mg Q4H PRN IV PUSH CIWA 8 - 10 08/07/17 09:45 Future Hold 08/08/17 05:47 Lorazepam (Ativan Inj) 2 mg Q2H PRN IV PUSH CIWA 11-14 08/07/17 09:45 Future Hold Lorazepam (Ativan Inj) 2 mg Q15M PRN IV PUSH CIWA > 20 08/07/17 09:45 Future Hold Haloperidol Lactate (Haldol Inj) 2 mg Q15M PRN IM SEE LABEL COMMENTS 08/07/17 09:45 08/12/17 11:02 Albuterol/ Ipratropium (Duoneb Neb) 1 ampule Q6HR NEB NEB 08/11/17 10:00 08/12/17 09:15 Albuterol/ Ipratropium (Duoneb Neb) 1 ampule Q6HR NEB NEB 08/11/17 10:00 08/12/17 09:15 (Deja Dee) Medical Decision Making MDM Remarks 66 y/o male s/p fall due to acute etoh intoxication etoh abuse with history of prior falls and TBI f/u CT Head 08/08 with new left temporal parenchymal hematoma, stable follow up CT 08/09 pt remains aphasic, appearing more awake this morning (Deja Dee) Plan Plan Remarks cont supportive care MV, thiamine, FA cont nonoperative mgt, clear from standpoint to transfer out of unit to 5N near nursing station cont nonchemical dvt prophylaxis in view of acute ICH Protonix for stress ulcer proph ST for aphasia, PT, OT - encourage mobilization OOB cont medical management dw nursing (Deja Dee) Attending Statement Neuro. Continue neuro checks. Continue nonoperative treatment. Pulmonary.Continue aggressive pulmonary toilette, nasotracheal suction, and breathing treatments with nebulizers. Alcohol intoxication. Continue Watch for signs of withdrawal The patient has comorbidities including Alcohol intoxication, Diabetes mellitus , Thrombocytopenia, Hepatitis C, which increase the risk for developing complications. Thrombocytopenia. Continue Monitor. if further decreas will transfuse platelets Nutrition. Oral diet ADA 2000 Florentino Renal. Continue monitor closely urine output, BUN and creatinine Diabetes mellitus. Continue Monitor serial Acu checks and SSI as needed in detail ID Continue monitor for signs of infection Continue Protonix for stress ulcer prophylaxis Continue Ron hose and SCD's for DVT prophylaxis. The exam, history, and the medical decision-making described in the above note were completed with the assistance of the mid-level provider. I reviewed and agree with the findings presented. I attest that I had a [id number] encounter with the patient on the same day, and personally performed and documented my assessment and findings in the medical record. (Rasheed Duque MD) Deja Dee Aug 12, 2017 12:23 Rasheed Duque MD Aug 13, 2017 16:47
[2017-08-13] VITALS (13 sets, daily range): BP systolic 105–134; BP diastolic 62–75; PULSE 10–108; RESP 19–27; TEMP 98–99.7; O2SAT 95–100
[2017-08-13] MEDS: metroNIDAZOLE 500 MG INJ 100 ML IV SCH ×3 (02:19→17:43)
[2017-08-13] MEDS: RESP: ALBUTEROL 2.5 MG/IPRATROPIUM 0.5 MG NEB (SCH) NEB ×5 (03:20→20:17)
[2017-08-13] MEDS: CHLORHEXIDINE GLUCONATE 2 % 1 PACK (2 CLOTHS) TOP SCH (04:00)
[2017-08-13 05:02] LABS: HEMATOCRIT 45.7 % (39.0-51.0); MEAN CELL VOLUME 93.1 FL (80.0-100.0); MEAN CORPUSCULAR HEMOGLOBIN 31.7 PG (27.0-34.0); MEAN CORPUSCULAR HGB CONC 34.1 % (32.0-36.0); PLATELET COUNT 70 TH/MM3 (150-450); RED BLOOD COUNT 4.91 MIL/MM3 (4.50-5.90); RED CELL DISTRIBUTION WIDTH 16.1 % (11.6-17.2); WHITE BLOOD COUNT 5.5 TH/MM3 (4.0-11.0)
[2017-08-13] MEDS: INSULIN ASPART SUPPLEMENTAL SCALE SQ SCH ×4 (05:04→23:56)
[2017-08-13 05:13] LABS: REVIEW FLAG FINAL
[2017-08-13 05:26] LABS: BICARBONATE 27.1 MEQ/L (21.0-32.0); MAGNESIUM 2.5 MG/DL (1.5-2.5); POTASSIUM 3.6 MEQ/L (3.5-5.1)
[2017-08-13] MEDS: SODIUM CHLORIDE 0.9% FLUSH 10 ML FLUSH IV FLUSH SCH ×2 (09:06→20:10)
[2017-08-13] MEDS: DOCUSATE SODIUM 50 MG/SENNA 8.6 MG TAB PO SCH ×2 (09:06→20:11)
[2017-08-13] MEDS: THIAMINE HCL 100 MG TAB PO SCH (09:06)
[2017-08-13] MEDS: FAMOTIDINE 20 MG/2 ML VIAL IV PUSH SCH ×2 (09:06→20:10)
[2017-08-13] MEDS: LEVOFLOXACIN 750 MG PREMIX INJ 150 ML IV SCH (09:07)
--- NOTE | 2017-08-13 10:03 | HHI.NSPN ---
(Deja Dee) Note Status Status: Progress Note (Deja Dee) Interval History Interval History 66-year-old male who was brought to the ER by [facility] after passing out at a local bar. There was limited history available in view of altered mental status. Patient was found to have subdural hematoma and bitemporal small bleeds /contusions. Dr. Duque from neurosurgery was contacted by ER physician and requested patient be admitted by critical care medicine service to the ICU with consulted for neurosurgery. Patient was accepted for admission by critical care medicine service. Patient did have an elevated EtOH level. When I evaluated the patient in the ER he was drowsy, easily arousable, new he was at the hospital however otherwise was confused and disoriented. He could not tell me how he was brought to the hospital. History was obtained by reviewing records and discussion with ER physician and nursing staff. 08/08: f/u CT Head this morning with new left temporal intraparenchymal hemorrhage. patient appears mildly drowsy but awake - reports he is ok. 08/09: sleeping but arouses briefly, followed only few simple commands, ?aphasic 08/10: remains ?aphasic, moving all four extremities, turning himself over in bed. awake and mumbling 08/11: nursing reports more awake, restless all night, sleepy during the day. 08/12: more awake this morning, saying "hello" and smiling. 08/13: no significant changes to neuro examination (Deja Dee) Labs, Micro, & Vital Signs Results Date Time Temp Pulse Resp B/P (MAP) Pulse Ox O2 Delivery O2 Flow Rate FiO2 08/13/17 06:00 73 08/13/17 04:00 100 08/13/17 04:00 98.7 91 25 124/74 (91) 100 08/13/17 02:00 100 08/13/17 00:00 91 08/13/17 00:00 99.0 91 25 134/68 (90) 100 08/12/17 22:00 101 08/12/17 21:12 100 Nasal Cannula 3.00 08/12/17 20:00 98.4 97 26 145/79 (101) 99 08/12/17 20:00 97 08/12/17 19:00 100 Nasal Cannula 3.00 08/12/17 18:00 100 08/12/17 16:00 98.0 88 21 140/66 (90) 97 08/12/17 16:00 84 08/12/17 14:00 89 08/12/17 12:00 92 08/12/17 12:00 98.1 91 20 118/64 (82) 96 Constitutional Vital Signs Date Time Temp Pulse Resp B/P (MAP) Pulse Ox O2 Delivery O2 Flow Rate FiO2 08/13/17 06:00 73 08/13/17 04:00 100 08/13/17 04:00 98.7 91 25 124/74 (91) 100 08/13/17 02:00 100 08/13/17 00:00 91 08/13/17 00:00 99.0 91 25 134/68 (90) 100 08/12/17 22:00 101 08/12/17 21:12 100 Nasal Cannula 3.00 08/12/17 20:00 98.4 97 26 145/79 (101) 99 08/12/17 20:00 97 08/12/17 19:00 100 Nasal Cannula 3.00 08/12/17 18:00 100 08/12/17 16:00 98.0 88 21 140/66 (90) 97 08/12/17 16:00 84 08/12/17 14:00 89 08/12/17 12:00 92 08/12/17 12:00 98.1 91 20 118/64 (82) 96 (Deja Dee) Review of Systems ROS Limitations: Clinical Condition, Altered Mental Status, Speech Impaired (Deja Dee) Physical Exam Mr. Valentine is awake, remains aphasic, did not follow commands. Cranial nerve examination: pupils equal, round. Facial motor are symmetric at rest. Motor: he moves all four extremities purposefully, but does not follow commands , on soft restraints Sensory examination: localizes to pain x 4 Cerebellar examination cannot asses due to clinical condition. (Deja Dee) Mr. Valentine is awake, remains aphasic, did not follow commands. Cranial nerve examination: pupils equal, round. Facial motor are symmetric at rest. Motor: he moves all four extremities purposefully, but does not follow commands , on soft restraints Sensory examination: localizes to pain x 4 Cerebellar examination cannot asses due to clinical condition. (Rasheed Duque MD) Medications Current Medications Current Medications Medications (Trade) Dose Ordered Sig/Sameera Route PRN Reason Start Time Stop Time Status Last Admin Dose Admin Sodium Chloride (NS Flush) 2 ml UNSCH PRN IV FLUSH FLUSH AFTER USING IV ACCESS 08/07/17 07:00 Sodium Chloride (NS Flush) 2 ml BID IV FLUSH 08/07/17 09:00 08/13/17 09:06 Acetaminophen (Tylenol) 650 mg Q6H PRN PO PAIN 1-10 AND/OR FEVER >101F 08/07/17 07:00 Famotidine (Pepcid Inj) 20 mg Q12HR IV PUSH 08/07/17 09:00 08/13/17 09:06 Ondansetron HCl (Zofran Inj) 4 mg Q6H PRN IV PUSH NAUSEA OR VOMITING 08/07/17 07:00 Albuterol/ Ipratropium (Duoneb Neb) 1 ampule Q2HR NEB PRN INH WHEEZING 08/07/17 07:00 Miscellaneous Information 1 Q361D XX 08/07/17 07:00 Chlorhexidine Gluconate (Chlorhexidine 2% Cloth) Taper DAILY@04 TOP 08/08/17 04:00 08/04/18 03:59 08/11/17 04:00 Chlorhexidine Gluconate (Chlorhexidine 2% Cloth) 3 pack UNSCH PRN TOP HYGIENIC CARE 08/07/17 07:00 Senna/Docusate Sodium (Tess-Colace) 1 tab BID PO 08/07/17 09:00 08/13/17 09:06 Magnesium Hydroxide (Milk Of Magnesia Liq) 30 ml Q12H PRN PO Mild constipation 08/07/17 07:00 Sennosides (Senokot) 17.2 mg Q12H PRN PO Moderate constipation 08/07/17 07:00 Bisacodyl (Dulcolax Supp) 10 mg DAILY PRN RECTAL SEVERE CONSITIPATION 08/07/17 07:00 Lactulose (Lactulose Liq) 30 ml DAILY PRN PO SEVERE CONSITIPATION 08/07/17 07:00 Potassium Chloride 100 ml @ 50 mls/hr Q2H PRN IV For Potassium 2.8 - 3.2 mEq/L 08/07/17 07:00 Potassium Chloride 100 ml @ 50 mls/hr Q2H PRN IV For Potassium 2.8 - 3.2 mEq/L 08/07/17 07:00 Potassium Bicarb/ Potassium Chloride (K-Lyte Cl Eff) 50 meq UNSCH PRN PO For Potassium 3.3 - 3.5 mEq/L 08/07/17 07:00 08/12/17 11:16 Potassium Chloride 100 ml @ 25 mls/hr UNSCH PRN IV For Potassium 3.3 - 3.5 mEq/L 08/07/17 07:00 Potassium Chloride 100 ml @ 50 mls/hr Q2H PRN IV For Potassium 3.3 - 3.5 mEq/L 08/07/17 07:00 Magnesium Sulfate 4 gm/Sodium Chloride 100 ml @ 50 mls/hr UNSCH PRN IV For Magnesium 0.9 - 1.1 mg/dL 08/07/17 07:00 Magnesium Oxide (Mag-Ox) 800 mg UNSCH PRN PO For Magnesium 1.2 - 1.6 mg/dL 08/07/17 07:00 Magnesium Sulfate 2 gm/Sodium Chloride 100 ml @ 50 mls/hr UNSCH PRN IV For Magnesium 1.2 - 1.6 mg/dL 08/07/17 07:00 Potassium Phosphate (K-Phos) 2,000 mg Q4H PRN PO For Phosphorus < 2.5 mg/dL 08/07/17 07:00 Sodium Phosphate 30 mmol/Sodium Chloride 250 ml @ 42 mls/hr UNSCH PRN IV For Phosphorus < 2.5 mg/dL 08/07/17 07:00 Potassium Phosphate (K-Phos) 2,000 mg UNSCH PRN PO/TUBE SEE LABEL COMMENTS 08/07/17 07:00 Potassium Phosphate 30 mmol/ Sodium Chloride 260 ml @ 42 mls/hr UNSCH PRN IV SEE LABEL COMMENTS 08/07/17 07:00 Insulin Aspart (NovoLOG SUPPLEMENTAL SCALE) 1 Q6HR SQ 08/07/17 08:45 08/13/17 05:04 Dextrose (D50w (Vial) Inj) 25 ml UNSCH PRN IV HYPOGLYCEMIA-SEE COMMENTS 08/07/17 07:00 Glucagon (Glucagon Inj) 1 mg UNSCH PRN IM/SQ HYPOGLYCEMIA-SEE COMMENTS 08/07/17 07:00 Levofloxacin/ Dextrose 150 ml @ 100 mls/hr Q24H IV 08/07/17 10:00 08/13/17 09:07 Metronidazole 100 ml @ 100 mls/hr Q8H IV 08/07/17 10:00 08/13/17 09:06 Thiamine HCl (Vitamin B1) 100 mg DAILY PO 08/08/17 09:00 08/13/17 09:06 Lorazepam (Ativan Inj) 1 mg Q4H PRN IV PUSH CIWA 8 - 10 08/07/17 09:45 Future Hold 08/08/17 05:47 Lorazepam (Ativan Inj) 2 mg Q2H PRN IV PUSH CIWA 11-14 08/07/17 09:45 Future Hold Lorazepam (Ativan Inj) 2 mg Q15M PRN IV PUSH CIWA > 20 08/07/17 09:45 Future Hold Haloperidol Lactate (Haldol Inj) 2 mg Q15M PRN IM SEE LABEL COMMENTS 08/07/17 09:45 08/12/17 22:38 Albuterol/ Ipratropium (Duoneb Neb) 1 ampule Q6HR NEB NEB 08/11/17 10:00 08/13/17 03:20 (Deja Dee) Current Medications Current Medications Sodium Chloride (NS Flush) 2 ml UNSCH PRN IVF FLUSH AFTER USING IV ACCESS; Start 08/07/17 at 04:30; Stop 08/07/17 at 07:24; Status DC Potassium Chloride (KCl) 40 meq ONCE ONCE PO Last administered on 08/07/17 06 :11; Start 08/07/17 at 06:00; Stop 08/07/17 at 06:01; Status DC Magnesium Oxide (Mag-Ox) 400 mg ONCE ONCE PO Last administered on 08/07/17 08 :43; Start 08/07/17 at 06:00; Stop 08/07/17 at 06:01; Status DC Potassium Chloride/Sodium Chloride 1,000 ml @ 100 mls/hr Q10H IV Last administered on 08/11/17 03:04; Start 08/07/17 at 08:00; Stop 08/11/17 at 08:46 ; Status DC Sodium Chloride (NS Flush) 2 ml UNSCH PRN IV FLUSH FLUSH AFTER USING IV ACCESS ; Start 08/07/17 at 07:00 Sodium Chloride (NS Flush) 2 ml BID IV FLUSH Last administered on 08/13/17 09: 06; Start 08/07/17 at 09:00 Acetaminophen (Tylenol) 650 mg Q6H PRN PO PAIN 1-10 AND/OR FEVER >101F; Start 08/07/17 at 07:00 Famotidine (Pepcid Inj) 20 mg Q12HR IV PUSH Last administered on 08/13/17 09: 06; Start 08/07/17 at 09:00 Ondansetron HCl (Zofran Inj) 4 mg Q6H PRN IV PUSH NAUSEA OR VOMITING; Start at 07:00 Albuterol/ Ipratropium (Duoneb Neb) 1 ampule Q2HR NEB PRN INH WHEEZING; Start 08/07/17 at 07:00 Miscellaneous Information 1 Q361D XX ; Start 08/07/17 at 07:00 Chlorhexidine Gluconate (Chlorhexidine 2% Cloth) Taper DAILY@04 TOP Last administered on 08/11/17 04:00; Start 08/08/17 at 04:00; Stop 08/04/18 at 03: 59 Chlorhexidine Gluconate (Chlorhexidine 2% Cloth) 3 pack UNSCH PRN TOP HYGIENIC CARE; Start 08/07/17 at 07:00 Senna/Docusate Sodium (Tess-Colace) 1 tab BID PO Last administered on 09:06; Start 08/07/17 at 09:00 Magnesium Hydroxide (Milk Of Magnesia Liq) 30 ml Q12H PRN PO Mild constipation ; Start 08/07/17 at 07:00 Sennosides (Senokot) 17.2 mg Q12H PRN PO Moderate constipation; Start 08/07/17 at 07:00 Bisacodyl (Dulcolax Supp) 10 mg DAILY PRN RECTAL SEVERE CONSITIPATION; Start 08/07/17 at 07:00 Lactulose (Lactulose Liq) 30 ml DAILY PRN PO SEVERE CONSITIPATION; Start at 07:00 Potassium Chloride 100 ml @ 50 mls/hr Q2H PRN IV For Potassium 2.8 - 3.2 mEq/L ; Start 08/07/17 at 07:00 Potassium Chloride 100 ml @ 50 mls/hr Q2H PRN IV For Potassium 2.8 - 3.2 mEq/L ; Start 08/07/17 at 07:00 Potassium Bicarb/ Potassium Chloride (K-Lyte Cl Eff) 50 meq UNSCH PRN PO For Potassium 3.3 - 3.5 mEq/L Last administered on 08/12/17t 11:16; Start 08/07/17 at 07:00 Potassium Chloride 100 ml @ 25 mls/hr UNSCH PRN IV For Potassium 3.3 - 3.5 mEq /L; Start 08/07/17 at 07:00 Potassium Chloride 100 ml @ 50 mls/hr Q2H PRN IV For Potassium 3.3 - 3.5 mEq/L ; Start 08/07/17 at 07:00 Magnesium Sulfate 4 gm/Sodium Chloride 100 ml @ 50 mls/hr UNSCH PRN IV For Magnesium 0.9 - 1.1 mg/dL; Start 08/07/17 at 07:00 Magnesium Oxide (Mag-Ox) 800 mg UNSCH PRN PO For Magnesium 1.2 - 1.6 mg/dL; Start 08/07/17 at 07:00 Magnesium Sulfate 2 gm/Sodium Chloride 100 ml @ 50 mls/hr UNSCH PRN IV For Magnesium 1.2 - 1.6 mg/dL; Start 08/07/17 at 07:00 Potassium Phosphate (K-Phos) 2,000 mg Q4H PRN PO For Phosphorus < 2.5 mg/dL; Start 08/07/17 at 07:00 Sodium Phosphate 30 mmol/Sodium Chloride 250 ml @ 42 mls/hr UNSCH PRN IV For Phosphorus < 2.5 mg/dL; Start 08/07/17 at 07:00 Potassium Phosphate (K-Phos) 2,000 mg UNSCH PRN PO/TUBE SEE LABEL COMMENTS; Start 08/07/17 at 07:00 Potassium Phosphate 30 mmol/ Sodium Chloride 260 ml @ 42 mls/hr UNSCH PRN IV SEE LABEL COMMENTS; Start 08/07/17 at 07:00 Insulin Aspart (NovoLOG SUPPLEMENTAL SCALE) 1 Q6HR SQ Last administered on 08/13t 05:04; Start 08/07/17 at 08:45 Dextrose (D50w (Vial) Inj) 25 ml UNSCH PRN IV HYPOGLYCEMIA-SEE COMMENTS; Start 08/07/17 at 07:00 Glucagon (Glucagon Inj) 1 mg UNSCH PRN IM/SQ HYPOGLYCEMIA-SEE COMMENTS; Start 08/07/17 at 07:00 Levofloxacin/ Dextrose 150 ml @ 100 mls/hr Q24H IV Last administered on 09:07; Start 08/07/17 at 10:00; Stop 08/14/17 at 09:00 Metronidazole 100 ml @ 100 mls/hr Q8H IV Last administered on 08/13/17 09:06 ; Start 08/07/17 at 10:00; Stop 08/14/17 at 09:00 Albuterol/ Ipratropium (Duoneb Neb) 1 ampule Q6HR NEB NEB Last administered on 08/10/17 03:31; Start 08/07/17 at 10:00; Stop 08/11/17 at 08:45; Status DC Sodium Chloride 250 ml @ 15 mls/hr ONCE ONCE IV ; Start 08/07/17 at 09:45; Stop 08/08/17 at 02:24; Status DC Folic Acid (Folate) 1 mg DAILY PO Last administered on 08/12/17 08:40; Start 08/08/17 at 09:00; Stop 08/13/17 at 08:59; Status DC Thiamine HCl (Vitamin B1) 100 mg DAILY PO Last administered on 08/13/17 09:06 ; Start 08/08/17 at 09:00 Multivitamins/ Minerals Therapeutic (Theragran M Tab) 1 tab DAILY PO Last administered on 08/12/17 08:40; Start 08/08/17 at 09:00; Stop 08/13/17 at 08:59 ; Status DC Lorazepam (Ativan Inj) 1 mg Q4H PRN IV PUSH CIWA 8 - 10 Last administered on 05:47; Start 08/07/17 at 09:45; Status Future Hold Lorazepam (Ativan Inj) 2 mg Q2H PRN IV PUSH CIWA 11-14; Start 08/07/17 at 09:45 ; Status Future Hold Lorazepam (Ativan Inj) 2 mg Q15M PRN IV PUSH CIWA > 20; Start 08/07/17 at 09:45 ; Status Future Hold Haloperidol Lactate (Haldol Inj) 2 mg Q15M PRN IM SEE LABEL COMMENTS Last administered on 08/12/17 22:38; Start 08/07/17 at 09:45 Multivitamins 10 ml/Thiamine HCl 100 mg/Folic Acid 1 mg/Sodium Chloride 511.2 ml @ 125 mls/hr Q24H IV Last administered on 08/10/17 12:04; Start 08/10/17 at 12:00; Stop 08/11/17 at 10:59; Status DC Albuterol/ Ipratropium (Duoneb Neb) 1 ampule Q6HR NEB NEB Last administered on 08/13/17 11:50; Start 08/11/17 at 10:00 Albuterol/ Ipratropium (Duoneb Neb) 1 ampule Q6HR NEB NEB Last administered on 08/12/17 09:15; Start 08/11/17 at 10:00; Stop 08/12/17 at 16:14; Status DC Potassium Chloride (KCl) 40 meq ONCE ONCE PO ; Start 08/12/17 at 11:15; Stop 08/12/17 at 11:16; Status DC Bisacodyl (Dulcolax Supp) 10 mg ONCE ONCE RECTAL ; Start 08/13/17 at 16:15; Stop 08/13/17 at 16:16; Status UNV (Rasheed Duque MD) Medical Decision Making MDM Remarks 66 y/o male s/p fall due to acute etoh intoxication etoh abuse with history of prior falls and TBI f/u CT Head 08/08 with new left temporal parenchymal hematoma, stable follow up CT 08/09 pt remains aphasic, appearing more awake this morning (Deja Dee) Plan Plan Remarks cont supportive care medical management cont therapy (Deja Dee) Attending Statement Neuro. Continue neuro checks. Continue nonoperative treatment. Pulmonary.Continue aggressive pulmonary toilette, nasotracheal suction, and breathing treatments with nebulizers. Alcohol intoxication. Continue Watch for signs of withdrawal The patient has comorbidities including Alcohol intoxication, Diabetes mellitus , Thrombocytopenia, Hepatitis C, which increase the risk for developing complications. Thrombocytopenia. Continue Monitor. if further decreas will transfuse platelets Nutrition. Oral diet ADA 2000 Florentino Renal. Continue monitor closely urine output, BUN and creatinine Diabetes mellitus. Continue Monitor serial Acu checks and SSI as needed in detail ID Continue monitor for signs of infection Continue Protonix for stress ulcer prophylaxis Continue Ron hose and SCD's for DVT prophylaxis. The exam, history, and the medical decision-making described in the above note were completed with the assistance of the mid-level provider. I reviewed and agree with the findings presented. I attest that I had a [id number] encounter with the patient on the same day, and personally performed and documented my assessment and findings in the medical record. (Rasheed Duque MD) Deja Dee Aug 13, 2017 10:03 Rasheed Duque MD Aug 13, 2017 16:48
--- NOTE | 2017-08-13 10:04 | EKG ---
Date Performed: 08/12/2017 Time Performed: 12:09:46 PTAGE: 66 years EKG: Sinus rhythm Possible left anterior fascicular block Borderline ECG PREVIOUS TRACING : 04/03/2017 00.34 DOCTOR: Wilmer Luna Interpretating Date/Time 08/13/2017 10:03:12
--- NOTE | 2017-08-13 16:18 | HHI.PR ---
Subjective Remarks The patient was awake and alert. He was indicating the SCDs were squeezing his legs. No acute complaints. Objective Vitals Vital Signs Date Time Temp Pulse Resp B/P (MAP) Pulse Ox O2 Delivery O2 Flow Rate FiO2 08/13/17 14:00 107 08/13/17 12:00 98.1 69 27 116/63 (80) 95 08/13/17 12:00 69 08/13/17 10:00 90 08/13/17 08:00 72 08/13/17 08:00 98.0 72 19 109/74 (86) 100 08/13/17 07:00 Nasal Cannula 3.00 08/13/17 06:00 73 08/13/17 04:00 100 08/13/17 04:00 98.7 91 25 124/74 (91) 100 08/13/17 02:00 100 08/13/17 00:00 91 08/13/17 00:00 99.0 91 25 134/68 (90) 100 08/12/17 22:00 101 08/12/17 21:12 100 Nasal Cannula 3.00 08/12/17 20:00 98.4 97 26 145/79 (101) 99 08/12/17 20:00 97 08/12/17 19:00 100 Nasal Cannula 3.00 08/12/17 18:00 100 I/O 08/12/17 08/12/17 08/12/17 08/13/17 08/13/17 08/13/17 07:00 15:00 23:00 07:00 15:00 23:00 Intake Total 220 ml 480 ml 340 ml Output Total 800 ml 800 ml 500 ml Balance -580 ml -320 ml -160 ml Intake Oral 120 ml 480 ml 240 ml IV Total 100 ml 100 ml Output Urine Total 800 ml 800 ml 500 ml # Voids 4 3 # Bowel Movements 0 0 0 Result Diagram: 08/13/174 08/13/17403 Imaging Last Impressions Chest X-Ray 08/11/17 0000 Signed Impressions: Service Date/Time: Friday, August 11, 2017 09:13 - CONCLUSION: Improvement. Persistent bibasilar parenchymal changes remain. Costa Jackson MD FACR Head CT 08/09/17 0000 Signed Impressions: Service Date/Time: Wednesday, August 09, 2017 09:36 - CONCLUSION: 1. No significant interval change. 2. Stable parenchymal hemorrhage in the anterior left temporal lobe. 3. Stable extra-axial, likely subdural, hemorrhage in the anterior temporal and right posterior parieto-occipital mid to high convexities. 4. Stable subtle intraventricular blood products. 5. No intercurrent new hemorrhage, hydrocephalus, or herniation. Galdino Thakur MD Objective Remarks GENERAL: No distress. SKIN: Warm and dry. HEAD: Normocephalic. EYES: No scleral icterus. No injection or drainage. NECK: Supple, trachea midline. No JVD or lymphadenopathy. CARDIOVASCULAR: Regular rate and rhythm without murmurs, gallops, or rubs. RESPIRATORY: Bilateral wheezing. GASTROINTESTINAL: Abdomen soft, non-tender, nondistended. MUSCULOSKELETAL: No cyanosis, or edema. No calf tenderness. NEURO: He moves all extremities. PSYCH: Calm. Medications and IVs Current Medications Medications (Trade) Dose Ordered Sig/Sameera Route Start Time Stop Time Status Last Admin (NS Flush) 2 ml UNSCH PRN IV FLUSH 08/07/17 07:00 (NS Flush) 2 ml BID IV FLUSH 08/07/17 09:00 08/13/17 09:06 (Tylenol) 650 mg Q6H PRN PO 08/07/17 07:00 (Pepcid Inj) 20 mg Q12HR IV PUSH 08/07/17 09:00 08/13/17 09:06 (Zofran Inj) 4 mg Q6H PRN IV PUSH 08/07/17 07:00 (Duoneb Neb) 1 ampule Q2HR NEB PRN INH 08/07/17 07:00 Miscellaneous Information 1 Q361D XX 08/07/17 07:00 (Chlorhexidine 2% Cloth) Taper DAILY@04 TOP 08/08/17 04:00 08/04/18 03:59 08/11/17 04:00 (Chlorhexidine 2% Cloth) 3 pack UNSCH PRN TOP 08/07/17 07:00 (Tess-Colace) 1 tab BID PO 08/07/17 09:00 08/13/17 09:06 (Milk Of Magnesia Liq) 30 ml Q12H PRN PO 08/07/17 07:00 (Senokot) 17.2 mg Q12H PRN PO 08/07/17 07:00 (Dulcolax Supp) 10 mg DAILY PRN RECTAL 08/07/17 07:00 (Lactulose Liq) 30 ml DAILY PRN PO 08/07/17 07:00 Potassium Chloride 100 ml @ 50 mls/hr Q2H PRN IV 08/07/17 07:00 Potassium Chloride 100 ml @ 50 mls/hr Q2H PRN IV 08/07/17 07:00 (K-Lyte Cl Eff) 50 meq UNSCH PRN PO 08/07/17 07:00 08/12/17 11:16 Potassium Chloride 100 ml @ 25 mls/hr UNSCH PRN IV 08/07/17 07:00 Potassium Chloride 100 ml @ 50 mls/hr Q2H PRN IV 08/07/17 07:00 Magnesium Sulfate 4 gm/Sodium Chloride 100 ml @ 50 mls/hr UNSCH PRN IV 08/07/17 07:00 (Mag-Ox) 800 mg UNSCH PRN PO 08/07/17 07:00 Magnesium Sulfate 2 gm/Sodium Chloride 100 ml @ 50 mls/hr UNSCH PRN IV 08/07/17 07:00 (K-Phos) 2,000 mg Q4H PRN PO 08/07/17 07:00 Sodium Phosphate 30 mmol/Sodium Chloride 250 ml @ 42 mls/hr UNSCH PRN IV 08/07/17 07:00 (K-Phos) 2,000 mg UNSCH PRN PO/TUBE 08/07/17 07:00 Potassium Phosphate 30 mmol/ Sodium Chloride 260 ml @ 42 mls/hr UNSCH PRN IV 08/07/17 07:00 (NovoLOG SUPPLEMENTAL SCALE) 1 Q6HR SQ 08/07/17 08:45 08/13/17 05:04 (D50w (Vial) Inj) 25 ml UNSCH PRN IV 08/07/17 07:00 (Glucagon Inj) 1 mg UNSCH PRN IM/SQ 08/07/17 07:00 Levofloxacin/ Dextrose 150 ml @ 100 mls/hr Q24H IV 08/07/17 10:00 08/13/17 09:07 Metronidazole 100 ml @ 100 mls/hr Q8H IV 08/07/17 10:00 08/13/17 09:06 (Vitamin B1) 100 mg DAILY PO 11/3/17 09:00 08/13/17 09:06 (Ativan Inj) 1 mg Q4H PRN IV PUSH 08/07/17 09:45 Future Hold 08/08/17 05:47 (Ativan Inj) 2 mg Q2H PRN IV PUSH 08/07/17 09:45 Future Hold (Ativan Inj) 2 mg Q15M PRN IV PUSH 08/07/17 09:45 Future Hold (Haldol Inj) 2 mg Q15M PRN IM 08/07/17 09:45 08/12/17 22:38 (Duoneb Neb) 1 ampule Q6HR NEB NEB 08/11/17 10:00 08/13/17 11:50 A/P Assessment and Plan Subdural hematoma: This a 66-year-old male who was admitted to the hospital on 08/07 after a fall at a bar that resulted in subdural hematoma and bitemporal small bleeds. Dr. Duque (neurosurgery) has seen and evaluated the patient. Nonoperative treatment. On 08/08 CT showed new left temporal intraparenchymal hemorrhage. Repeat/follow up CT on 08/09 is stable. - No Chemical DVT prophylaxis. - Keppra for seizure prophylaxis. - Follow up with NS. - PT/ OT. - check an EKG to see if Seroquel can be added for agitation. Restraints as needed for now. Alcohol intoxication, with possible withdrawal symptoms Ativan and Librium on hold due to increased drowsiness. - Stable. Thrombocytopenia Likely related to chronic alcohol abuse. The patient received transfusion on 08/08. - Platelets have been stable. Monitor. Aspiration pneumonia CXR with improvement. Blood cultures negative to date. - Continue Levaquin and Flagyl. D/c 08/14. COPD The pt has wheezing on exam. Repeat CXR with improvement. ABG noted. - continue nebs and antibiotics. - wean O2 as tolerated. - antibiotics as above. Diabetes Well controlled. - Diabetic diet, sliding scale. Hep C Stable. - can be followed up as an outpatient. GI prophylaxis with Pepcid, bilateral SCDs Discharge Planning Awaiting clinical improvement. Transfer to floor. Damien Bellamy DO Aug 13, 2017 16:17
[2017-08-13] MEDS ORDERED: BISACODYL 10 MG SUPP RECTAL ONE (17:15)
[2017-08-14] VITALS (13 sets, daily range): BP systolic 108–148; BP diastolic 60–80; PULSE 67–102; RESP 20–26; TEMP 97.6–98.5; O2SAT 94–99
[2017-08-14] MEDS: metroNIDAZOLE 500 MG INJ 100 ML IV SCH (02:35)
[2017-08-14] MEDS: RESP: ALBUTEROL 2.5 MG/IPRATROPIUM 0.5 MG NEB (SCH) NEB ×4 (03:45→20:03)
[2017-08-14] MEDS: CHLORHEXIDINE GLUCONATE 2 % 1 PACK (2 CLOTHS) TOP SCH (04:00)
[2017-08-14] MEDS: INSULIN ASPART SUPPLEMENTAL SCALE SQ SCH ×3 (06:39→18:00)
[2017-08-14] MEDS: FAMOTIDINE 20 MG/2 ML VIAL IV PUSH SCH ×2 (08:28→21:26)
[2017-08-14] MEDS: DOCUSATE SODIUM 50 MG/SENNA 8.6 MG TAB PO SCH ×2 (08:28→21:26)
[2017-08-14] MEDS: THIAMINE HCL 100 MG TAB PO SCH (08:28)
[2017-08-14] MEDS: SODIUM CHLORIDE 0.9% FLUSH 10 ML FLUSH IV FLUSH SCH ×2 (08:28→21:26)
--- NOTE | 2017-08-14 15:14 | HHI.NSPN ---
(Deja Dee) Note Status Status: Progress Note (Deja Dee) Interval History Interval History 66-year-old male who was brought to the ER by [facility] after passing out at a local bar. There was limited history available in view of altered mental status. Patient was found to have subdural hematoma and bitemporal small bleeds /contusions. Dr. Duque from neurosurgery was contacted by ER physician and requested patient be admitted by critical care medicine service to the ICU with consulted for neurosurgery. Patient was accepted for admission by critical care medicine service. Patient did have an elevated EtOH level. When I evaluated the patient in the ER he was drowsy, easily arousable, new he was at the hospital however otherwise was confused and disoriented. He could not tell me how he was brought to the hospital. History was obtained by reviewing records and discussion with ER physician and nursing staff. 08/08: f/u CT Head this morning with new left temporal intraparenchymal hemorrhage. patient appears mildly drowsy but awake - reports he is ok. 08/09: sleeping but arouses briefly, followed only few simple commands, ?aphasic 08/10: remains ?aphasic, moving all four extremities, turning himself over in bed. awake and mumbling 08/11: nursing reports more awake, restless all night, sleepy during the day. 08/12: more awake this morning, saying "hello" and smiling. 08/13: no significant changes to neuro examination 08/14: talking a little more, still rather aphasic. being fed breakfast, smiling. (Deja Dee) Labs, Micro, & Vital Signs Results Date Time Temp Pulse Resp B/P (MAP) Pulse Ox O2 Delivery O2 Flow Rate FiO2 08/14/17 12:00 74 08/14/17 12:00 97.7 74 22 108/60 (76) 97 08/14/17 10:00 94 Nasal Cannula 2.00 08/14/17 10:00 77 08/14/17 08:00 84 08/14/17 08:00 97.6 84 24 125/78 (94) 96 08/14/17 07:00 Nasal Cannula 3.00 08/14/17 06:00 83 08/14/17 04:00 98.5 86 24 128/68 (88) 96 08/14/17 04:00 86 08/14/17 02:00 82 08/14/17 00:00 102 08/14/17 00:00 97.8 102 20 148/80 (102) 99 08/13/17 22:00 102 08/13/17 20:17 99 Nasal Cannula 3.00 08/13/17 20:00 99.7 108 27 119/75 (90) 96 08/13/17 20:00 108 08/13/17 19:00 Nasal Cannula 3.00 08/13/17 18:00 82 08/13/17 16:00 98.3 89 23 105/62 (76) 97 08/13/17 16:00 89 Constitutional Vital Signs Date Time Temp Pulse Resp B/P (MAP) Pulse Ox O2 Delivery O2 Flow Rate FiO2 08/14/17 12:00 74 08/14/17 12:00 97.7 74 22 108/60 (76) 97 08/14/17 10:00 94 Nasal Cannula 2.00 08/14/17 10:00 77 08/14/17 08:00 84 08/14/17 08:00 97.6 84 24 125/78 (94) 96 08/14/17 07:00 Nasal Cannula 3.00 08/14/17 06:00 83 08/14/17 04:00 98.5 86 24 128/68 (88) 96 08/14/17 04:00 86 08/14/17 02:00 82 08/14/17 00:00 102 08/14/17 00:00 97.8 102 20 148/80 (102) 99 08/13/17 22:00 102 08/13/17 20:17 99 Nasal Cannula 3.00 08/13/17 20:00 99.7 108 27 119/75 (90) 96 08/13/17 20:00 108 08/13/17 19:00 Nasal Cannula 3.00 08/13/17 18:00 82 08/13/17 16:00 98.3 89 23 105/62 (76) 97 08/13/17 16:00 89 (Deja Dee) Physical Exam Mr. Valentine is alert, mumbling but making few sentences. said his name and "hello ". Cranial nerve examination: pupils equal, round. gross eoms intact. Facial motor are symmetric at rest. Motor: he moves all four extremities purposefully, on four point soft restraints Sensory examination: localizes to pain x 4 Neck: soft, supple Cerebellar examination cannot asses due to clinical condition. (Deja Dee) Mr. Valentine is alert, mumbling but making few sentences. said his name and "hello ". Cranial nerve examination: pupils equal, round. gross eoms intact. Facial motor are symmetric at rest. Motor: he moves all four extremities purposefully, on four point soft restraints Sensory examination: localizes to pain x 4 Neck: soft, supple Cerebellar examination cannot asses due to clinical condition. (Rasheed Duque MD) Medications Current Medications Current Medications Medications (Trade) Dose Ordered Sig/Sameera Route PRN Reason Start Time Stop Time Status Last Admin Dose Admin Sodium Chloride (NS Flush) 2 ml UNSCH PRN IV FLUSH FLUSH AFTER USING IV ACCESS 08/07/17 07:00 Sodium Chloride (NS Flush) 2 ml BID IV FLUSH 08/07/17 09:00 08/14/17 08:28 Acetaminophen (Tylenol) 650 mg Q6H PRN PO PAIN 1-10 AND/OR FEVER >101F 08/07/17 07:00 Famotidine (Pepcid Inj) 20 mg Q12HR IV PUSH 08/07/17 09:00 08/14/17 08:28 Ondansetron HCl (Zofran Inj) 4 mg Q6H PRN IV PUSH NAUSEA OR VOMITING 08/07/17 07:00 Albuterol/ Ipratropium (Duoneb Neb) 1 ampule Q2HR NEB PRN INH WHEEZING 08/07/17 07:00 Miscellaneous Information 1 Q361D XX 08/07/17 07:00 Chlorhexidine Gluconate (Chlorhexidine 2% Cloth) Taper DAILY@04 TOP 08/08/17 04:00 08/04/18 03:59 08/11/17 04:00 Chlorhexidine Gluconate (Chlorhexidine 2% Cloth) 3 pack UNSCH PRN TOP HYGIENIC CARE 08/07/17 07:00 Senna/Docusate Sodium (Tess-Colace) 1 tab BID PO 08/07/17 09:00 08/14/17 08:28 Magnesium Hydroxide (Milk Of Magnesia Liq) 30 ml Q12H PRN PO Mild constipation 08/07/17 07:00 Sennosides (Senokot) 17.2 mg Q12H PRN PO Moderate constipation 08/07/17 07:00 Bisacodyl (Dulcolax Supp) 10 mg DAILY PRN RECTAL SEVERE CONSITIPATION 08/07/17 07:00 08/14/17 08:29 Lactulose (Lactulose Liq) 30 ml DAILY PRN PO SEVERE CONSITIPATION 08/07/17 07:00 Potassium Chloride 100 ml @ 50 mls/hr Q2H PRN IV For Potassium 2.8 - 3.2 mEq/L 08/07/17 07:00 Potassium Chloride 100 ml @ 50 mls/hr Q2H PRN IV For Potassium 2.8 - 3.2 mEq/L 08/07/17 07:00 Potassium Bicarb/ Potassium Chloride (K-Lyte Cl Eff) 50 meq UNSCH PRN PO For Potassium 3.3 - 3.5 mEq/L 08/07/17 07:00 08/12/17 11:16 Potassium Chloride 100 ml @ 25 mls/hr UNSCH PRN IV For Potassium 3.3 - 3.5 mEq/L 08/07/17 07:00 Potassium Chloride 100 ml @ 50 mls/hr Q2H PRN IV For Potassium 3.3 - 3.5 mEq/L 08/07/17 07:00 Magnesium Sulfate 4 gm/Sodium Chloride 100 ml @ 50 mls/hr UNSCH PRN IV For Magnesium 0.9 - 1.1 mg/dL 08/07/17 07:00 Magnesium Oxide (Mag-Ox) 800 mg UNSCH PRN PO For Magnesium 1.2 - 1.6 mg/dL 08/07/17 07:00 Magnesium Sulfate 2 gm/Sodium Chloride 100 ml @ 50 mls/hr UNSCH PRN IV For Magnesium 1.2 - 1.6 mg/dL 08/07/17 07:00 Potassium Phosphate (K-Phos) 2,000 mg Q4H PRN PO For Phosphorus < 2.5 mg/dL 08/07/17 07:00 Sodium Phosphate 30 mmol/Sodium Chloride 250 ml @ 42 mls/hr UNSCH PRN IV For Phosphorus < 2.5 mg/dL 08/07/17 07:00 Potassium Phosphate (K-Phos) 2,000 mg UNSCH PRN PO/TUBE SEE LABEL COMMENTS 08/07/17 07:00 Potassium Phosphate 30 mmol/ Sodium Chloride 260 ml @ 42 mls/hr UNSCH PRN IV SEE LABEL COMMENTS 08/07/17 07:00 Insulin Aspart (NovoLOG SUPPLEMENTAL SCALE) 1 Q6HR SQ 08/07/17 08:45 08/14/17 06:39 Dextrose (D50w (Vial) Inj) 25 ml UNSCH PRN IV HYPOGLYCEMIA-SEE COMMENTS 08/07/17 07:00 Glucagon (Glucagon Inj) 1 mg UNSCH PRN IM/SQ HYPOGLYCEMIA-SEE COMMENTS 08/07/17 07:00 Thiamine HCl (Vitamin B1) 100 mg DAILY PO 08/08/17 09:00 08/14/17 08:28 Lorazepam (Ativan Inj) 1 mg Q4H PRN IV PUSH CIWA 8 - 10 08/07/17 09:45 Future Hold 08/08/17 05:47 Lorazepam (Ativan Inj) 2 mg Q2H PRN IV PUSH CIWA 11-14 08/07/17 09:45 Future Hold Lorazepam (Ativan Inj) 2 mg Q15M PRN IV PUSH CIWA > 20 08/07/17 09:45 Future Hold Haloperidol Lactate (Haldol Inj) 2 mg Q15M PRN IM SEE LABEL COMMENTS 08/07/17 09:45 08/12/17 22:38 Albuterol/ Ipratropium (Duoneb Neb) 1 ampule Q6HR NEB NEB 08/11/17 10:00 08/14/17 09:59 (Deja Dee) Current Medications Current Medications Sodium Chloride (NS Flush) 2 ml UNSCH PRN IVF FLUSH AFTER USING IV ACCESS; Start 08/07/17 at 04:30; Stop 08/07/17 at 07:24; Status DC Potassium Chloride (KCl) 40 meq ONCE ONCE PO Last administered on 08/07/17 06 :11; Start 08/07/17 at 06:00; Stop 08/07/17 at 06:01; Status DC Magnesium Oxide (Mag-Ox) 400 mg ONCE ONCE PO Last administered on 08/07/17 08 :43; Start 08/07/17 at 06:00; Stop 08/07/17 at 06:01; Status DC Potassium Chloride/Sodium Chloride 1,000 ml @ 100 mls/hr Q10H IV Last administered on 08/11/17 03:04; Start 08/07/17 at 08:00; Stop 08/11/17 at 08:46 ; Status DC Sodium Chloride (NS Flush) 2 ml UNSCH PRN IV FLUSH FLUSH AFTER USING IV ACCESS ; Start 08/07/17 at 07:00 Sodium Chloride (NS Flush) 2 ml BID IV FLUSH Last administered on 08/14/17 08: 28; Start 08/07/17 at 09:00 Acetaminophen (Tylenol) 650 mg Q6H PRN PO PAIN 1-10 AND/OR FEVER >101F; Start 08/07/17 at 07:00 Famotidine (Pepcid Inj) 20 mg Q12HR IV PUSH Last administered on 08/14/17 08: 28; Start 08/07/17 at 09:00 Ondansetron HCl (Zofran Inj) 4 mg Q6H PRN IV PUSH NAUSEA OR VOMITING; Start at 07:00 Albuterol/ Ipratropium (Duoneb Neb) 1 ampule Q2HR NEB PRN INH WHEEZING; Start 08/07/17 at 07:00 Miscellaneous Information 1 Q361D XX ; Start 08/07/17 at 07:00 Chlorhexidine Gluconate (Chlorhexidine 2% Cloth) Taper DAILY@04 TOP Last administered on 08/11/17 04:00; Start 08/08/17 at 04:00; Stop 08/04/18 at 03: 59 Chlorhexidine Gluconate (Chlorhexidine 2% Cloth) 3 pack UNSCH PRN TOP HYGIENIC CARE; Start 08/07/17 at 07:00 Senna/Docusate Sodium (Tess-Colace) 1 tab BID PO Last administered on 08:28; Start 08/07/17 at 09:00 Magnesium Hydroxide (Milk Of Magnesia Liq) 30 ml Q12H PRN PO Mild constipation ; Start 08/07/17 at 07:00 Sennosides (Senokot) 17.2 mg Q12H PRN PO Moderate constipation; Start 08/07/17 at 07:00 Bisacodyl (Dulcolax Supp) 10 mg DAILY PRN RECTAL SEVERE CONSITIPATION Last administered on 08/14/17t 08:29; Start 08/07/17 at 07:00 Lactulose (Lactulose Liq) 30 ml DAILY PRN PO SEVERE CONSITIPATION; Start at 07:00 Potassium Chloride 100 ml @ 50 mls/hr Q2H PRN IV For Potassium 2.8 - 3.2 mEq/L ; Start 08/07/17 at 07:00 Potassium Chloride 100 ml @ 50 mls/hr Q2H PRN IV For Potassium 2.8 - 3.2 mEq/L ; Start 08/07/17 at 07:00 Potassium Bicarb/ Potassium Chloride (K-Lyte Cl Eff) 50 meq UNSCH PRN PO For Potassium 3.3 - 3.5 mEq/L Last administered on 08/12/17t 11:16; Start 08/07/17 at 07:00 Potassium Chloride 100 ml @ 25 mls/hr UNSCH PRN IV For Potassium 3.3 - 3.5 mEq /L; Start 08/07/17 at 07:00 Potassium Chloride 100 ml @ 50 mls/hr Q2H PRN IV For Potassium 3.3 - 3.5 mEq/L ; Start 08/07/17 at 07:00 Magnesium Sulfate 4 gm/Sodium Chloride 100 ml @ 50 mls/hr UNSCH PRN IV For Magnesium 0.9 - 1.1 mg/dL; Start 08/07/17 at 07:00 Magnesium Oxide (Mag-Ox) 800 mg UNSCH PRN PO For Magnesium 1.2 - 1.6 mg/dL; Start 08/07/17 at 07:00 Magnesium Sulfate 2 gm/Sodium Chloride 100 ml @ 50 mls/hr UNSCH PRN IV For Magnesium 1.2 - 1.6 mg/dL; Start 08/07/17 at 07:00 Potassium Phosphate (K-Phos) 2,000 mg Q4H PRN PO For Phosphorus < 2.5 mg/dL; Start 08/07/17 at 07:00 Sodium Phosphate 30 mmol/Sodium Chloride 250 ml @ 42 mls/hr UNSCH PRN IV For Phosphorus < 2.5 mg/dL; Start 08/07/17 at 07:00 Potassium Phosphate (K-Phos) 2,000 mg UNSCH PRN PO/TUBE SEE LABEL COMMENTS; Start 08/07/17 at 07:00 Potassium Phosphate 30 mmol/ Sodium Chloride 260 ml @ 42 mls/hr UNSCH PRN IV SEE LABEL COMMENTS; Start 08/07/17 at 07:00 Insulin Aspart (NovoLOG SUPPLEMENTAL SCALE) 1 Q6HR SQ Last administered on 08/14 06:39; Start 08/07/17 at 08:45 Dextrose (D50w (Vial) Inj) 25 ml UNSCH PRN IV HYPOGLYCEMIA-SEE COMMENTS; Start 08/07/17 at 07:00 Glucagon (Glucagon Inj) 1 mg UNSCH PRN IM/SQ HYPOGLYCEMIA-SEE COMMENTS; Start 08/07/17 at 07:00 Levofloxacin/ Dextrose 150 ml @ 100 mls/hr Q24H IV Last administered on 09:07; Start 08/07/17 at 10:00; Stop 08/14/17 at 09:00; Status DC Metronidazole 100 ml @ 100 mls/hr Q8H IV Last administered on 08/14/17 02:35 ; Start 08/07/17 at 10:00; Stop 08/14/17 at 09:00; Status DC Albuterol/ Ipratropium (Duoneb Neb) 1 ampule Q6HR NEB NEB Last administered on 08/10/17 03:31; Start 08/07/17 at 10:00; Stop 08/11/17 at 08:45; Status DC Sodium Chloride 250 ml @ 15 mls/hr ONCE ONCE IV ; Start 08/07/17 at 09:45; Stop 08/08/17 at 02:24; Status DC Folic Acid (Folate) 1 mg DAILY PO Last administered on 08/12/17 08:40; Start 08/08/17 at 09:00; Stop 08/13/17 at 08:59; Status DC Thiamine HCl (Vitamin B1) 100 mg DAILY PO Last administered on 08/14/17 08:28 ; Start 08/08/17 at 09:00 Multivitamins/ Minerals Therapeutic (Theragran M Tab) 1 tab DAILY PO Last administered on 08/12/17 08:40; Start 08/08/17 at 09:00; Stop 08/13/17 at 08:59 ; Status DC Lorazepam (Ativan Inj) 1 mg Q4H PRN IV PUSH CIWA 8 - 10 Last administered on 05:47; Start 08/07/17 at 09:45; Status Future Hold Lorazepam (Ativan Inj) 2 mg Q2H PRN IV PUSH CIWA 11-14; Start 08/07/17 at 09:45 ; Status Future Hold Lorazepam (Ativan Inj) 2 mg Q15M PRN IV PUSH CIWA > 20; Start 08/07/17 at 09:45 ; Status Future Hold Haloperidol Lactate (Haldol Inj) 2 mg Q15M PRN IM SEE LABEL COMMENTS Last administered on 08/12/17 22:38; Start 08/07/17 at 09:45 Multivitamins 10 ml/Thiamine HCl 100 mg/Folic Acid 1 mg/Sodium Chloride 511.2 ml @ 125 mls/hr Q24H IV Last administered on 08/10/17 12:04; Start 08/10/17 at 12:00; Stop 08/11/17 at 10:59; Status DC Albuterol/ Ipratropium (Duoneb Neb) 1 ampule Q6HR NEB NEB Last administered on 08/14/17 09:59; Start 08/11/17 at 10:00; Stop 08/14/17 at 17:09; Status DC Albuterol/ Ipratropium (Duoneb Neb) 1 ampule Q6HR NEB NEB Last administered on 08/12/17 09:15; Start 08/11/17 at 10:00; Stop 08/12/17 at 16:14; Status DC Potassium Chloride (KCl) 40 meq ONCE ONCE PO ; Start 08/12/17 at 11:15; Stop 08/12/17 at 11:16; Status DC Bisacodyl (Dulcolax Supp) 10 mg ONCE ONCE RECTAL Last administered on 17:43; Start 08/13/17 at 17:15; Stop 08/13/17 at 17:16; Status DC Albuterol/ Ipratropium (Duoneb Neb) 1 ampule Q6HR NEB NEB Last administered on 08/14/17 20:03; Start 08/14/17 at 22:00 Quetiapine Fumarate (SEROquel) 25 mg BID PO ; Start 08/14/17 at 21:00 (Rasheed Duque MD) Medical Decision Making MDM Remarks 66 y/o male s/p fall due to acute etoh intoxication etoh abuse with history of prior falls and TBI f/u CT Head 08/08 with new left temporal parenchymal hematoma, stable follow up CT 08/09 pt remains aphasic, slowly improving, mental status improving. (Deja Dee) Plan Plan Remarks cont medical management cont therapy and rehab efforts, neurologically stable will sign off, call prn (Deja Dee) Attending Statement As above Continue neuro checks in a serial fashion. Continue nonoperative treatment The exam, history, and the medical decision-making described in the above note were completed with the assistance of the mid-level provider. I reviewed and agree with the findings presented. I attest that I had a [id number] encounter with the patient on the same day, and personally performed and documented my assessment and findings in the medical record. (Rasheed Duque MD) Deja Dee Aug 14, 2017 15:14 Rasheed Duque MD Aug 14, 2017 21:06
--- NOTE | 2017-08-14 17:10 | HHI.PR ---
Subjective Remarks The patient was resting comfortably in bed. He wanted the restraints off. Discussed with nursing. Objective Vitals Vital Signs Date Time Temp Pulse Resp B/P (MAP) Pulse Ox O2 Delivery O2 Flow Rate FiO2 08/14/17 16:00 97.9 94 22 123/73 (90) 94 08/14/17 16:00 94 08/14/17 14:00 82 08/14/17 12:00 74 08/14/17 12:00 97.7 74 22 108/60 (76) 97 08/14/17 10:00 94 Nasal Cannula 2.00 08/14/17 10:00 77 08/14/17 08:00 84 08/14/17 08:00 97.6 84 24 125/78 (94) 96 08/14/17 07:00 Nasal Cannula 3.00 08/14/17 06:00 83 08/14/17 04:00 98.5 86 24 128/68 (88) 96 08/14/17 04:00 86 08/14/17 02:00 82 08/14/17 00:00 102 08/14/17 00:00 97.8 102 20 148/80 (102) 99 08/13/17 22:00 102 08/13/17 20:17 99 Nasal Cannula 3.00 08/13/17 20:00 99.7 108 27 119/75 (90) 96 08/13/17 20:00 108 08/13/17 19:00 Nasal Cannula 3.00 08/13/17 18:00 82 I/O 08/13/17 08/13/17 08/13/17 08/14/17 08/14/17 08/14/17 07:00 15:00 23:00 07:00 15:00 23:00 Intake Total 340 ml 250 ml 580 ml 340 ml Output Total 500 ml 525 ml 325 ml Balance -160 ml 250 ml 55 ml 15 ml Intake Oral 240 ml 480 ml 240 ml IV Total 100 ml 250 ml 100 ml 100 ml Output Urine Total 500 ml 525 ml 325 ml Stool Total 0 ml # Voids 3 1 # Bowel Movements 0 0 1 Result Diagram: 08/13/17 0404 08/13/17 0404 Imaging Last Impressions Chest X-Ray 08/11/17 0000 Signed Impressions: Service Date/Time: Friday, August 11, 2017 09:13 - CONCLUSION: Improvement. Persistent bibasilar parenchymal changes remain. Costa Jackson MD FACR Head CT 08/09/17 0000 Signed Impressions: Service Date/Time: Wednesday, August 09, 2017 09:36 - CONCLUSION: 1. No significant interval change. 2. Stable parenchymal hemorrhage in the anterior left temporal lobe. 3. Stable extra-axial, likely subdural, hemorrhage in the anterior temporal and right posterior parieto-occipital mid to high convexities. 4. Stable subtle intraventricular blood products. 5. No intercurrent new hemorrhage, hydrocephalus, or herniation. Galdino Thakur MD Objective Remarks GENERAL: No distress. SKIN: Warm and dry. HEAD: Normocephalic. EYES: No scleral icterus. No injection or drainage. NECK: Supple, trachea midline. No JVD or lymphadenopathy. CARDIOVASCULAR: Regular rate and rhythm without murmurs, gallops, or rubs. RESPIRATORY: Bilateral wheezing. GASTROINTESTINAL: Abdomen soft, non-tender, nondistended. MUSCULOSKELETAL: No cyanosis, or edema. No calf tenderness. NEURO: He moves all extremities. PSYCH: Calm. Medications and IVs Current Medications Medications (Trade) Dose Ordered Sig/Sameera Route Start Time Stop Time Status Last Admin (NS Flush) 2 ml UNSCH PRN IV FLUSH 08/07/17 07:00 (NS Flush) 2 ml BID IV FLUSH 08/07/17 09:00 08/14/17 08:28 (Tylenol) 650 mg Q6H PRN PO 08/07/17 07:00 (Pepcid Inj) 20 mg Q12HR IV PUSH 08/07/17 09:00 08/14/17 08:28 (Zofran Inj) 4 mg Q6H PRN IV PUSH 08/07/17 07:00 (Duoneb Neb) 1 ampule Q2HR NEB PRN INH 08/07/17 07:00 Miscellaneous Information 1 Q361D XX 08/07/17 07:00 (Chlorhexidine 2% Cloth) Taper DAILY@04 TOP 08/08/17 04:00 08/04/18 03:59 08/11/17 04:00 (Chlorhexidine 2% Cloth) 3 pack UNSCH PRN TOP 08/07/17 07:00 (Tess-Colace) 1 tab BID PO 08/07/17 09:00 08/14/17 08:28 (Milk Of Magnesia Liq) 30 ml Q12H PRN PO 08/07/17 07:00 (Senokot) 17.2 mg Q12H PRN PO 08/07/17 07:00 (Dulcolax Supp) 10 mg DAILY PRN RECTAL 08/07/17 07:00 08/14/17 08:29 (Lactulose Liq) 30 ml DAILY PRN PO 08/07/17 07:00 Potassium Chloride 100 ml @ 50 mls/hr Q2H PRN IV 08/07/17 07:00 Potassium Chloride 100 ml @ 50 mls/hr Q2H PRN IV 08/07/17 07:00 (K-Lyte Cl Eff) 50 meq UNSCH PRN PO 08/07/17 07:00 08/12/17 11:16 Potassium Chloride 100 ml @ 25 mls/hr UNSCH PRN IV 08/07/17 07:00 Potassium Chloride 100 ml @ 50 mls/hr Q2H PRN IV 08/07/17 07:00 Magnesium Sulfate 4 gm/Sodium Chloride 100 ml @ 50 mls/hr UNSCH PRN IV 08/07/17 07:00 (Mag-Ox) 800 mg UNSCH PRN PO 08/07/17 07:00 Magnesium Sulfate 2 gm/Sodium Chloride 100 ml @ 50 mls/hr UNSCH PRN IV 08/07/17 07:00 (K-Phos) 2,000 mg Q4H PRN PO 08/07/17 07:00 Sodium Phosphate 30 mmol/Sodium Chloride 250 ml @ 42 mls/hr UNSCH PRN IV 08/07/17 07:00 (K-Phos) 2,000 mg UNSCH PRN PO/TUBE 08/07/17 07:00 Potassium Phosphate 30 mmol/ Sodium Chloride 260 ml @ 42 mls/hr UNSCH PRN IV 08/07/17 07:00 (NovoLOG SUPPLEMENTAL SCALE) 1 Q6HR SQ 08/07/17 08:45 08/14/17 06:39 (D50w (Vial) Inj) 25 ml UNSCH PRN IV 08/07/17 07:00 (Glucagon Inj) 1 mg UNSCH PRN IM/SQ 08/07/17 07:00 (Vitamin B1) 100 mg DAILY PO 08/08/17 09:00 08/14/17 08:28 (Ativan Inj) 1 mg Q4H PRN IV PUSH 08/07/17 09:45 Future Hold 08/08/17 05:47 (Ativan Inj) 2 mg Q2H PRN IV PUSH 08/07/17 09:45 Future Hold (Ativan Inj) 2 mg Q15M PRN IV PUSH 08/07/17 09:45 Future Hold (Haldol Inj) 2 mg Q15M PRN IM 08/07/17 09:45 08/12/17 22:38 (Duoneb Neb) 1 ampule Q6HR NEB NEB 08/11/17 10:00 08/14/17 09:59 A/P Assessment and Plan Subdural hematoma: This a 66-year-old male who was admitted to the hospital on 08/07 after a fall at a bar that resulted in subdural hematoma and bitemporal small bleeds. Dr. Duque (neurosurgery) has seen and evaluated the patient. Nonoperative treatment. On 08/08 CT showed new left temporal intraparenchymal hemorrhage. Repeat/follow up CT on 08/09 is stable. - No Chemical DVT prophylaxis. - Keppra for seizure prophylaxis. - Follow up with NS. - PT/ OT. - Seroquel 25 mg BID. QTc not prolonged. Try to d/c restraints. Alcohol intoxication, with possible withdrawal symptoms Ativan and Librium on hold due to increased drowsiness. - Stable. Thrombocytopenia Likely related to chronic alcohol abuse. The patient received transfusion on 08/08. - Platelets have been stable. Monitor. Aspiration pneumonia CXR with improvement. Blood cultures negative to date. - Continue Levaquin and Flagyl. D/c 08/14. COPD The pt has wheezing on exam. Repeat CXR with improvement. ABG noted. - continue nebs and antibiotics. - wean O2 as tolerated. - antibiotics as above. Diabetes Well controlled. - Diabetic diet, sliding scale. Hep C Stable. - can be followed up as an outpatient. GI prophylaxis with Pepcid, bilateral SCDs Discharge Planning Awaiting clinical improvement. Transfer to floor. Damien Bellamy DO Aug 14, 2017 17:10
[2017-08-14] MEDS: QUEtiapine FUMARATE 25 MG TAB PO SCH (21:26)
[2017-08-15] VITALS (14 sets, daily range): BP systolic 112–131; BP diastolic 70–90; PULSE 71–106; RESP 20–27; TEMP 97.6–98.4; O2SAT 92–98
[2017-08-15] MEDS: RESP: ALBUTEROL 2.5 MG/IPRATROPIUM 0.5 MG NEB (SCH) NEB ×4 (02:50→19:48)
[2017-08-15] MEDS: CHLORHEXIDINE GLUCONATE 2 % 1 PACK (2 CLOTHS) TOP SCH (04:00)
[2017-08-15] MEDS: INSULIN ASPART SUPPLEMENTAL SCALE SQ SCH ×4 (05:16→18:00)
[2017-08-15] MEDS: FAMOTIDINE 20 MG/2 ML VIAL IV PUSH SCH ×2 (08:12→20:15)
[2017-08-15] MEDS: DOCUSATE SODIUM 50 MG/SENNA 8.6 MG TAB PO SCH ×2 (08:12→20:16)
[2017-08-15] MEDS: QUEtiapine FUMARATE 25 MG TAB PO SCH ×2 (08:12→20:16)
[2017-08-15] MEDS: THIAMINE HCL 100 MG TAB PO SCH (08:12)
[2017-08-15] MEDS: SODIUM CHLORIDE 0.9% FLUSH 10 ML FLUSH IV FLUSH SCH ×2 (08:12→20:16)
--- NOTE | 2017-08-15 15:10 | HHI.PR ---
Subjective Remarks The pt was sleeping in bed. No acute complaints. Objective Vitals Vital Signs Date Time Temp Pulse Resp B/P (MAP) Pulse Ox O2 Delivery O2 Flow Rate FiO2 08/15/17 14:00 89 08/15/17 12:00 84 08/15/17 12:00 97.7 88 24 125/90 (102) 94 08/15/17 10:00 86 08/15/17 09:27 93 Nasal Cannula 2.00 08/15/17 08:00 97.6 82 24 117/78 (91) 96 08/15/17 08:00 82 08/15/17 07:00 96 Nasal Cannula 3.00 08/15/17 06:00 99 08/15/17 04:00 98.3 106 27 128/80 (96) 98 08/15/17 04:00 106 08/15/17 02:00 99 08/15/17 00:00 102 08/15/17 00:00 98.3 102 25 128/80 (96) 94 08/14/17 22:00 81 08/14/17 20:02 98 Nasal Cannula 3.00 08/14/17 20:00 96 08/14/17 20:00 97.8 96 26 117/66 (83) 96 08/14/17 19:00 Nasal Cannula 3.00 08/14/17 18:00 67 08/14/17 16:00 97.9 94 22 123/73 (90) 94 08/14/17 16:00 94 I/O 08/14/17 08/14/17 08/14/17 08/15/17 08/15/17 08/15/17 07:00 15:00 23:00 07:00 15:00 23:00 Intake Total 340 ml 500 ml 120 ml Output Total 325 ml 400 ml 600 ml Balance 15 ml 100 ml -480 ml Intake Oral 240 ml 500 ml 120 ml IV Total 100 ml Output Urine Total 325 ml 400 ml 600 ml # Voids 1 1 # Bowel Movements 0 1 0 0 Result Diagram: 08/13/174 08/13/17 040 Imaging Last Impressions Chest X-Ray 08/11/17 0000 Signed Impressions: Service Date/Time: Friday, August 11, 2017 09:13 - CONCLUSION: Improvement. Persistent bibasilar parenchymal changes remain. Costa Jackson MD FACR Head CT 08/09/17 0000 Signed Impressions: Service Date/Time: Wednesday, August 09, 2017 09:36 - CONCLUSION: 1. No significant interval change. 2. Stable parenchymal hemorrhage in the anterior left temporal lobe. 3. Stable extra-axial, likely subdural, hemorrhage in the anterior temporal and right posterior parieto-occipital mid to high convexities. 4. Stable subtle intraventricular blood products. 5. No intercurrent new hemorrhage, hydrocephalus, or herniation. Galdino Thakur MD Objective Remarks GENERAL: No distress. SKIN: Warm and dry. HEAD: Normocephalic. EYES: No scleral icterus. No injection or drainage. NECK: Supple, trachea midline. No JVD or lymphadenopathy. CARDIOVASCULAR: Regular rate and rhythm without murmurs, gallops, or rubs. RESPIRATORY: Coarse breath sounds. GASTROINTESTINAL: Abdomen soft, non-tender, nondistended. MUSCULOSKELETAL: No cyanosis, or edema. No calf tenderness. NEURO: He moves all extremities. Lethargic. PSYCH: Calm. Medications and IVs Current Medications Medications (Trade) Dose Ordered Sig/Sameera Route Start Time Stop Time Status Last Admin (NS Flush) 2 ml UNSCH PRN IV FLUSH 08/07/17 07:00 (NS Flush) 2 ml BID IV FLUSH 08/07/17 09:00 08/15/17 08:12 (Tylenol) 650 mg Q6H PRN PO 08/07/17 07:00 (Pepcid Inj) 20 mg Q12HR IV PUSH 08/07/17 09:00 08/15/17 08:12 (Zofran Inj) 4 mg Q6H PRN IV PUSH 08/07/17 07:00 (Duoneb Neb) 1 ampule Q2HR NEB PRN INH 08/07/17 07:00 Miscellaneous Information 1 Q361D XX 08/07/17 07:00 (Chlorhexidine 2% Cloth) Taper DAILY@04 TOP 08/08/17 04:00 08/04/18 03:59 08/11/17 04:00 (Chlorhexidine 2% Cloth) 3 pack UNSCH PRN TOP 08/07/17 07:00 (Tess-Colace) 1 tab BID PO 08/07/17 09:00 08/15/17 08:12 (Milk Of Magnesia Liq) 30 ml Q12H PRN PO 08/07/17 07:00 (Senokot) 17.2 mg Q12H PRN PO 08/07/17 07:00 (Dulcolax Supp) 10 mg DAILY PRN RECTAL 08/07/17 07:00 08/14/17 08:29 (Lactulose Liq) 30 ml DAILY PRN PO 08/07/17 07:00 Potassium Chloride 100 ml @ 50 mls/hr Q2H PRN IV 08/07/17 07:00 Potassium Chloride 100 ml @ 50 mls/hr Q2H PRN IV 08/07/17 07:00 (K-Lyte Cl Eff) 50 meq UNSCH PRN PO 08/07/17 07:00 08/12/17 11:16 Potassium Chloride 100 ml @ 25 mls/hr UNSCH PRN IV 08/07/17 07:00 Potassium Chloride 100 ml @ 50 mls/hr Q2H PRN IV 08/07/17 07:00 Magnesium Sulfate 4 gm/Sodium Chloride 100 ml @ 50 mls/hr UNSCH PRN IV 08/07/17 07:00 (Mag-Ox) 800 mg UNSCH PRN PO 08/07/17 07:00 Magnesium Sulfate 2 gm/Sodium Chloride 100 ml @ 50 mls/hr UNSCH PRN IV 08/07/17 07:00 (K-Phos) 2,000 mg Q4H PRN PO 08/07/17 07:00 Sodium Phosphate 30 mmol/Sodium Chloride 250 ml @ 42 mls/hr UNSCH PRN IV 08/07/17 07:00 (K-Phos) 2,000 mg UNSCH PRN PO/TUBE 08/07/17 07:00 Potassium Phosphate 30 mmol/ Sodium Chloride 260 ml @ 42 mls/hr UNSCH PRN IV 08/07/17 07:00 (NovoLOG SUPPLEMENTAL SCALE) 1 Q6HR SQ 08/07/17 08:45 08/14/17 06:39 (D50w (Vial) Inj) 25 ml UNSCH PRN IV 08/07/17 07:00 (Glucagon Inj) 1 mg UNSCH PRN IM/SQ 08/07/17 07:00 (Vitamin B1) 100 mg DAILY PO 08/08/17 09:00 08/15/17 08:12 (Ativan Inj) 1 mg Q4H PRN IV PUSH 08/07/17 09:45 Future Hold 08/08/17 05:47 (Ativan Inj) 2 mg Q2H PRN IV PUSH 08/07/17 09:45 Future Hold (Ativan Inj) 2 mg Q15M PRN IV PUSH 08/07/17 09:45 Future Hold (Haldol Inj) 2 mg Q15M PRN IM 08/07/17 09:45 08/12/17 22:38 (Duoneb Neb) 1 ampule Q6HR NEB NEB 08/14/17 22:00 08/15/17 02:50 (SEROquel) 25 mg BID PO 08/14/17 21:00 08/15/17 08:12 A/P Assessment and Plan Subdural hematoma: This a 66-year-old male who was admitted to the hospital on 08/07 after a fall at a bar that resulted in subdural hematoma and bitemporal small bleeds. Dr. Duque (neurosurgery) has seen and evaluated the patient. Nonoperative treatment. On 08/08 CT showed new left temporal intraparenchymal hemorrhage. Repeat/follow up CT on 08/09 is stable. - No Chemical DVT prophylaxis. - Keppra for seizure prophylaxis. - Follow up with NS. - PT/ OT. - Seroquel 25 mg BID. QTc not prolonged. Try to d/c restraints. Alcohol intoxication/ Lethargy Ativan and Librium on hold due to increased drowsiness. ABG noted. - check TSH and ammonia levels. Thrombocytopenia Likely related to chronic alcohol abuse. The patient received transfusion on 08/08. - Platelets have been stable. Monitor. Aspiration pneumonia CXR with improvement. Blood cultures negative to date. - Continue Levaquin and Flagyl. D/c 08/14. - spiked another fever 08/15. BCs and CXR pending. COPD The pt has wheezing on exam. Repeat CXR with improvement. ABG noted. - continue nebs and antibiotics. - wean O2 as tolerated. - antibiotics as above. - nebs as needed. Diabetes Well controlled. - Diabetic diet, sliding scale. Hep C Stable. - can be followed up as an outpatient. GI prophylaxis with Pepcid, bilateral SCDs Discharge Planning Awaiting clinical improvement. Transfer to floor. Damien Bellamy DO Aug 15, 2017 15:10
--- NOTE | 2017-08-15 15:54 | RADRPT ---
EXAM DATE/TIME: 08/15/2017 15:14 [facility] COMPARISON: CHEST SINGLE AP, August 11, 2017, 9:13. INDICATIONS : Fever. MEDICAL HISTORY : Hepatitis C. Cardiovascular disease. Subdural 04/2017 SURGICAL HISTORY : Tonsillectomy. ENCOUNTER: Initial ACUITY: 1 week PAIN SCORE: Non-responsive. LOCATION: Bilateral chest FINDINGS: Bibasilar airspace opacities, improved from prior exam. Cardiome subchondrally at the normal limits. Bony thorax is intact. CONCLUSION: 1. Improved bibasilar airspace disease. Galdino Thakur MD on August 15, 2017 at 15:51 Board Certified Radiologist. This report was verified electronically.
[2017-08-15] MEDS: LACTIC ACID (AMMONIUM LACTATE) 12% LOTION 225 GM BTL TOPICAL SCH (20:16)
[2017-08-16] VITALS (8 sets, daily range): BP systolic 111–125; BP diastolic 70–92; PULSE 89–111; RESP 16–27; TEMP 98–98.6; O2SAT 91–98
[2017-08-16] MEDS: RESP: ALBUTEROL 2.5 MG/IPRATROPIUM 0.5 MG NEB (SCH) NEB ×4 (03:17→22:19)
[2017-08-16] MEDS: CHLORHEXIDINE GLUCONATE 2 % 1 PACK (2 CLOTHS) TOP SCH (04:00)
[2017-08-16] MEDS: INSULIN ASPART SUPPLEMENTAL SCALE SQ SCH ×4 (06:00→18:00)
[2017-08-16] MEDS: QUEtiapine FUMARATE 25 MG TAB PO SCH (08:02)
[2017-08-16] MEDS: DOCUSATE SODIUM 50 MG/SENNA 8.6 MG TAB PO SCH ×2 (08:02→21:04)
[2017-08-16] MEDS: FAMOTIDINE 20 MG/2 ML VIAL IV PUSH SCH (08:02)
[2017-08-16] MEDS: THIAMINE HCL 100 MG TAB PO SCH (08:02)
[2017-08-16] MEDS: SODIUM CHLORIDE 0.9% FLUSH 10 ML FLUSH IV FLUSH SCH ×2 (09:00→21:04)
[2017-08-16] MEDS: LACTIC ACID (AMMONIUM LACTATE) 12% LOTION 225 GM BTL TOPICAL SCH ×2 (09:00→21:04)
--- NOTE | 2017-08-16 15:50 | HHI.PR ---
Subjective Remarks The patient was resting in bed. He still only gave out minimal verbal responses. Nursing reported that he had half of his lunch, but did not eat breakfast. The patient had no acute complaints. Objective Vitals Vital Signs Date Time Temp Pulse Resp B/P (MAP) Pulse Ox O2 Delivery O2 Flow Rate FiO2 08/16/17 12:00 89 08/16/17 12:00 98.4 89 16 118/70 (86) 98 08/16/17 08:00 98.4 89 16 118/70 (86) 98 08/16/17 08:00 89 08/16/17 07:46 92 Nasal Cannula 5.00 08/16/17 07:00 98 Nasal Cannula 4.00 08/16/17 04:00 96 08/16/17 04:00 98.1 96 25 111/80 (90) 96 08/16/17 00:00 98.0 90 27 119/92 (101) 95 08/16/17 00:00 90 08/15/17 22:00 101 08/15/17 20:00 97.9 88 20 112/70 (84) 92 08/15/17 20:00 71 08/15/17 19:48 95 Nasal Cannula 3.00 08/15/17 19:00 94 Nasal Cannula 3.00 08/15/17 18:00 106 08/15/17 16:00 74 08/15/17 16:00 98.4 75 21 131/84 (100) 94 I/O 08/15/17 08/15/17 08/15/17 08/16/17 08/16/17 08/16/17 07:00 15:00 23:00 07:00 15:00 23:00 Intake Total 120 ml Output Total 600 ml 750 ml 500 ml Balance -480 ml -750 ml -500 ml Intake Oral 120 ml Output Urine Total 600 ml 750 ml 500 ml # Bowel Movements 0 0 Result Diagram: 08/13/1740308/13/17403 Imaging Last Impressions Chest X-Ray 08/15/17 0000 Signed Impressions: Service Date/Time: Tuesday, August 15, 2017 15:14 - CONCLUSION: 1. Improved bibasilar airspace disease. Galdino Thakur MD Head CT 08/09/17 0000 Signed Impressions: Service Date/Time: Wednesday, August 09, 2017 09:36 - CONCLUSION: 1. No significant interval change. 2. Stable parenchymal hemorrhage in the anterior left temporal lobe. 3. Stable extra-axial, likely subdural, hemorrhage in the anterior temporal and right posterior parieto-occipital mid to high convexities. 4. Stable subtle intraventricular blood products. 5. No intercurrent new hemorrhage, hydrocephalus, or herniation. Galdino Thakur MD Objective Remarks GENERAL: No distress. SKIN: Warm and dry. HEAD: Normocephalic. EYES: No scleral icterus. No injection or drainage. NECK: Supple, trachea midline. No JVD or lymphadenopathy. CARDIOVASCULAR: Regular rate and rhythm without murmurs, gallops, or rubs. RESPIRATORY: Coarse breath sounds. GASTROINTESTINAL: Abdomen soft, non-tender, nondistended. MUSCULOSKELETAL: No cyanosis, or edema. No calf tenderness. NEURO: He moves all extremities. Lethargic. PSYCH: Calm. Medications and IVs Current Medications Medications (Trade) Dose Ordered Sig/Sameera Route Start Time Stop Time Status Last Admin (NS Flush) 2 ml UNSCH PRN IV FLUSH 08/07/17 07:00 (NS Flush) 2 ml BID IV FLUSH 08/07/17 09:00 08/16/17 09:00 (Tylenol) 650 mg Q6H PRN PO 08/07/17 07:00 (Pepcid Inj) 20 mg Q12HR IV PUSH 08/07/17 09:00 08/16/17 08:02 (Zofran Inj) 4 mg Q6H PRN IV PUSH 08/07/17 07:00 (Duoneb Neb) 1 ampule Q2HR NEB PRN INH 08/07/17 07:00 Miscellaneous Information 1 Q361D XX 08/07/17 07:00 (Chlorhexidine 2% Cloth) Taper DAILY@04 TOP 08/08/17 04:00 08/04/18 03:59 08/11/17 04:00 (Chlorhexidine 2% Cloth) 3 pack UNSCH PRN TOP 08/07/17 07:00 (Tess-Colace) 1 tab BID PO 08/07/17 09:00 08/16/17 08:02 (Milk Of Magnesia Liq) 30 ml Q12H PRN PO 08/07/17 07:00 (Senokot) 17.2 mg Q12H PRN PO 08/07/17 07:00 (Dulcolax Supp) 10 mg DAILY PRN RECTAL 08/07/17 07:00 08/14/17 08:29 (Lactulose Liq) 30 ml DAILY PRN PO 08/07/17 07:00 Potassium Chloride 100 ml @ 50 mls/hr Q2H PRN IV 08/07/17 07:00 Potassium Chloride 100 ml @ 50 mls/hr Q2H PRN IV 08/07/17 07:00 (K-Lyte Cl Eff) 50 meq UNSCH PRN PO 08/07/17 07:00 08/12/17 11:16 Potassium Chloride 100 ml @ 25 mls/hr UNSCH PRN IV 08/07/17 07:00 Potassium Chloride 100 ml @ 50 mls/hr Q2H PRN IV 08/07/17 07:00 Magnesium Sulfate 4 gm/Sodium Chloride 100 ml @ 50 mls/hr UNSCH PRN IV 08/07/17 07:00 (Mag-Ox) 800 mg UNSCH PRN PO 08/07/17 07:00 Magnesium Sulfate 2 gm/Sodium Chloride 100 ml @ 50 mls/hr UNSCH PRN IV 08/07/17 07:00 (K-Phos) 2,000 mg Q4H PRN PO 08/07/17 07:00 Sodium Phosphate 30 mmol/Sodium Chloride 250 ml @ 42 mls/hr UNSCH PRN IV 08/07/17 07:00 (K-Phos) 2,000 mg UNSCH PRN PO/TUBE 08/07/17 07:00 Potassium Phosphate 30 mmol/ Sodium Chloride 260 ml @ 42 mls/hr UNSCH PRN IV 08/07/17 07:00 (NovoLOG SUPPLEMENTAL SCALE) 1 Q6HR SQ 08/07/17 08:45 08/16/17 12:00 (D50w (Vial) Inj) 25 ml UNSCH PRN IV 08/07/17 07:00 (Glucagon Inj) 1 mg UNSCH PRN IM/SQ 08/07/17 07:00 (Vitamin B1) 100 mg DAILY PO 08/08/17 09:00 08/16/17 08:02 (Ativan Inj) 1 mg Q4H PRN IV PUSH 08/07/17 09:45 Future Hold 08/08/17 05:47 (Ativan Inj) 2 mg Q2H PRN IV PUSH 08/07/17 09:45 Future Hold (Ativan Inj) 2 mg Q15M PRN IV PUSH 08/07/17 09:45 Future Hold (Haldol Inj) 2 mg Q15M PRN IM 08/07/17 09:45 08/12/17 22:38 (Duoneb Neb) 1 ampule Q6HR NEB NEB 08/14/17 22:00 08/16/17 07:46 (SEROquel) 25 mg BID PO 08/14/17 21:00 08/16/17 08:02 (Lac-Hydrin 12% Lotion) 1 applic BID TOPICAL 08/15/17 21:00 08/16/17 09:00 A/P Assessment and Plan Subdural hematoma: This a 66-year-old male who was admitted to the hospital on 08/07 after a fall at a bar that resulted in subdural hematoma and bitemporal small bleeds. Dr. Duque (neurosurgery) has seen and evaluated the patient. Nonoperative treatment. On 08/08 CT showed new left temporal intraparenchymal hemorrhage. Repeat/follow up CT on 08/09 is stable. - No Chemical DVT prophylaxis. - Keppra for seizure prophylaxis. - Follow up with NS. - PT/ OT. - Try to d/c restraints. Alcohol intoxication/ Lethargy/ Encephalopathy Ativan and Librium on hold due to increased drowsiness. ABG noted. - check TSH and ammonia levels. - d/c Seroquel. - neurology consult requested. Thrombocytopenia Likely related to chronic alcohol abuse. The patient received transfusion on 08/08. - Platelets have been stable. Monitor. Aspiration pneumonia CXR with improvement. Blood cultures negative to date. - Continue Levaquin and Flagyl. D/c 08/14. COPD The pt has wheezing on exam. Repeat CXR with improvement. ABG noted. - continue nebs and antibiotics. - wean O2 as tolerated. - antibiotics as above. - nebs as needed. - consider starting steroids. Diabetes Well controlled. - Diabetic diet, sliding scale. Hep C Stable. - can be followed up as an outpatient. GI prophylaxis with Pepcid, bilateral SCDs Discharge Planning Awaiting clinical improvement. Transfer to floor. Damien Bellamy DO Aug 16, 2017 15:50
[2017-08-16 16:22] LABS: AUTOMATED NEUTROPHIL # 4.1 TH/MM3 (1.8-7.7); BASOPHIL % 0.7 % (0.0-2.0); EOSINOPHIL # 0.1 TH/MM3 (0-0.4); EOSINOPHIL % 1.6 % (0.0-4.0); HEMATOCRIT 48.8 % (39.0-51.0); LYMPH % 13.2 % (9.0-44.0); LYMPHOCYTE # 0.7 TH/MM3 (1.0-4.8); MEAN CELL VOLUME 93.9 FL (80.0-100.0); MEAN CORPUSCULAR HEMOGLOBIN 32.2 PG (27.0-34.0); MEAN CORPUSCULAR HGB CONC 34.3 % (32.0-36.0); MONO % 12.7 % (0.0-8.0); NEUT % 71.8 % (16.0-70.0); PLATELET COUNT 51 TH/MM3 (150-450); RED CELL DISTRIBUTION WIDTH 15.7 % (11.6-17.2); WHITE BLOOD COUNT 5.7 TH/MM3 (4.0-11.0)
[2017-08-16 16:26] LABS: HEMO FLAGS AUTO DIFF
[2017-08-16 16:44] LABS: ANION GAP 7 MEQ/L (5-15); AST (GOT) 12 U/L (15-37); BICARBONATE 29.3 MEQ/L (21.0-32.0); BLOOD UREA NITROGEN 31 MG/DL (7-18); CHLORIDE 100 MEQ/L (98-107); GLOMERULAR FILTRATION RATE 91 ML/MIN (>89); SODIUM (NA) 136 MEQ/L (136-145)
[2017-08-16 16:45] LABS: ALT (GPT) 17 U/L (12-78)
[2017-08-16 16:54] LABS: ALKALINE PHOSPHATASE 66 U/L (45-117); TOTAL BILIRUBIN ADULT 1.6 MG/DL (0.2-1.0)
[2017-08-16 17:06] LABS: SCAN/DIFF AUTO DIFF CONFIRMED
[2017-08-16] MEDS: FAMOTIDINE 20 MG TAB PO SCH (21:04)
[2017-08-17] VITALS (8 sets, daily range): BP systolic 113–153; BP diastolic 73–87; PULSE 87–111; RESP 16–25; TEMP 97.5–98.4; O2SAT 92–96
[2017-08-17] MEDS: INSULIN ASPART SUPPLEMENTAL SCALE SQ SCH ×4 (00:17→17:53)
[2017-08-17] MEDS: HALOPERIDOL LACTATE 5 MG/ML AMP IM PRN (00:57)
[2017-08-17] MEDS: CHLORHEXIDINE GLUCONATE 2 % 1 PACK (2 CLOTHS) TOP SCH (04:00)
[2017-08-17] MEDS: RESP: ALBUTEROL 2.5 MG/IPRATROPIUM 0.5 MG NEB (SCH) NEB ×4 (04:03→20:47)
[2017-08-17] MEDS: DOCUSATE SODIUM 50 MG/SENNA 8.6 MG TAB PO SCH ×2 (08:34→20:39)
[2017-08-17] MEDS: FAMOTIDINE 20 MG TAB PO SCH ×2 (08:34→20:39)
[2017-08-17] MEDS: THIAMINE HCL 100 MG TAB PO SCH (09:00)
[2017-08-17] MEDS: LACTIC ACID (AMMONIUM LACTATE) 12% LOTION 225 GM BTL TOPICAL SCH ×2 (09:00→20:39)
[2017-08-17] MEDS: SODIUM CHLORIDE 0.9% FLUSH 10 ML FLUSH IV FLUSH SCH ×2 (09:00→20:39)
--- NOTE | 2017-08-17 11:20 | HHI.PR ---
Subjective Remarks The patient was more alert this morning. He was watching [employer] on TV. Discussed with nursing at the bedside. Objective Vitals Vital Signs Date Time Temp Pulse Resp B/P (MAP) Pulse Ox O2 Delivery O2 Flow Rate FiO2 08/17/17 08:00 98.4 87 18 119/78 (92) 94 08/17/17 08:00 87 08/17/17 07:51 96 Nasal Cannula 4.50 08/17/17 07:00 94 Nasal Cannula 3.00 08/17/17 04:00 97.7 96 25 121/75 (90) 92 08/17/17 04:00 96 08/17/17 00:00 111 08/17/17 00:00 97.5 111 22 119/86 (97) 92 08/16/17 22:19 94 Nasal Cannula 3.00 08/16/17 20:00 98.6 100 25 118/71 (87) 93 08/16/17 20:00 100 08/16/17 19:00 93 Nasal Cannula 3.00 08/16/17 16:00 98.3 111 22 125/73 (90) 91 08/16/17 16:00 111 08/16/17 12:00 89 08/16/17 12:00 98.4 89 16 118/70 (86) 98 I/O 08/16/17 08/16/17 08/16/17 08/17/17 08/17/17 08/17/17 07:00 15:00 23:00 07:00 15:00 23:00 Intake Total 525 ml Output Total 500 ml 500 ml 550 ml Balance -500 ml 25 ml -550 ml Intake Oral 525 ml Output Urine Total 500 ml 500 ml 550 ml # Bowel Movements 0 0 Result Diagram: 08/16/17 1549 08/16/17 1549 Imaging Last Impressions Chest X-Ray 08/15/17 0000 Signed Impressions: Service Date/Time: Tuesday, August 15, 2017 15:14 - CONCLUSION: 1. Improved bibasilar airspace disease. Galdino Thakur MD Head CT 08/09/17 0000 Signed Impressions: Service Date/Time: Wednesday, August 09, 2017 09:36 - CONCLUSION: 1. No significant interval change. 2. Stable parenchymal hemorrhage in the anterior left temporal lobe. 3. Stable extra-axial, likely subdural, hemorrhage in the anterior temporal and right posterior parieto-occipital mid to high convexities. 4. Stable subtle intraventricular blood products. 5. No intercurrent new hemorrhage, hydrocephalus, or herniation. Galdino Thakur MD Objective Remarks GENERAL: No distress. SKIN: Warm and dry. HEAD: Normocephalic. EYES: No scleral icterus. No injection or drainage. NECK: Supple, trachea midline. No JVD or lymphadenopathy. CARDIOVASCULAR: Regular rate and rhythm without murmurs, gallops, or rubs. RESPIRATORY: Clear to auscultation bilaterally. GASTROINTESTINAL: Abdomen soft, non-tender, nondistended. MUSCULOSKELETAL: No cyanosis, or edema. NEURO: He moves all extremities. Confused. Answers questions. PSYCH: Calm. Medications and IVs Current Medications Medications (Trade) Dose Ordered Sig/Sameera Route Start Time Stop Time Status Last Admin (NS Flush) 2 ml UNSCH PRN IV FLUSH 08/07/17 07:00 (NS Flush) 2 ml BID IV FLUSH 08/07/17 09:00 08/17/17 09:00 (Tylenol) 650 mg Q6H PRN PO 08/07/17 07:00 (Zofran Inj) 4 mg Q6H PRN IV PUSH 08/07/17 07:00 (Duoneb Neb) 1 ampule Q2HR NEB PRN INH 08/07/17 07:00 Miscellaneous Information 1 Q361D XX 08/07/17 07:00 (Chlorhexidine 2% Cloth) Taper DAILY@04 TOP 08/08/17 04:00 08/04/18 03:59 08/11/17 04:00 (Chlorhexidine 2% Cloth) 3 pack UNSCH PRN TOP 08/07/17 07:00 (Tess-Colace) 1 tab BID PO 08/07/17 09:00 08/17/17 08:34 (Milk Of Magnesia Liq) 30 ml Q12H PRN PO 08/07/17 07:00 (Senokot) 17.2 mg Q12H PRN PO 08/07/17 07:00 (Dulcolax Supp) 10 mg DAILY PRN RECTAL 08/07/17 07:00 08/14/17 08:29 Potassium Chloride 100 ml @ 50 mls/hr Q2H PRN IV 08/07/17 07:00 Potassium Chloride 100 ml @ 50 mls/hr Q2H PRN IV 08/07/17 07:00 (K-Lyte Cl Eff) 50 meq UNSCH PRN PO 08/07/17 07:00 08/12/17 11:16 Potassium Chloride 100 ml @ 25 mls/hr UNSCH PRN IV 08/07/17 07:00 Potassium Chloride 100 ml @ 50 mls/hr Q2H PRN IV 08/07/17 07:00 Magnesium Sulfate 4 gm/Sodium Chloride 100 ml @ 50 mls/hr UNSCH PRN IV 08/07/17 07:00 (Mag-Ox) 800 mg UNSCH PRN PO 08/07/17 07:00 Magnesium Sulfate 2 gm/Sodium Chloride 100 ml @ 50 mls/hr UNSCH PRN IV 08/07/17 07:00 (K-Phos) 2,000 mg Q4H PRN PO 08/07/17 07:00 Sodium Phosphate 30 mmol/Sodium Chloride 250 ml @ 42 mls/hr UNSCH PRN IV 08/07/17 07:00 (K-Phos) 2,000 mg UNSCH PRN PO/TUBE 08/07/17 07:00 Potassium Phosphate 30 mmol/ Sodium Chloride 260 ml @ 42 mls/hr UNSCH PRN IV 08/07/17 07:00 (NovoLOG SUPPLEMENTAL SCALE) 1 Q6HR SQ 08/07/17 08:45 08/17/17 00:17 (D50w (Vial) Inj) 25 ml UNSCH PRN IV 08/07/17 07:00 (Glucagon Inj) 1 mg UNSCH PRN IM/SQ 08/07/17 07:00 (Vitamin B1) 100 mg DAILY PO 08/08/17 09:00 08/17/17 09:00 (Ativan Inj) 1 mg Q4H PRN IV PUSH 08/07/17 09:45 Future Hold 08/08/17 05:47 (Ativan Inj) 2 mg Q2H PRN IV PUSH 08/07/17 09:45 Future Hold (Ativan Inj) 2 mg Q15M PRN IV PUSH 08/07/17 09:45 Future Hold (Haldol Inj) 2 mg Q15M PRN IM 08/07/17 09:45 08/17/17 00:57 (Duoneb Neb) 1 ampule Q6HR NEB NEB 08/14/17 22:00 08/17/17 07:50 (Lac-Hydrin 12% Lotion) 1 applic BID TOPICAL 08/15/17 21:00 08/17/17 09:00 (Pepcid) 20 mg BID PO 08/16/17 21:00 08/17/17 08:34 (Lactulose Liq) 30 ml QID PO 08/17/17 11:15 UNV A/P Assessment and Plan Subdural hematoma: This a 66-year-old male who was admitted to the hospital on 08/07 after a fall at a bar that resulted in subdural hematoma and bitemporal small bleeds. Dr. Duque (neurosurgery) has seen and evaluated the patient. Nonoperative treatment. On 08/08 CT showed new left temporal intraparenchymal hemorrhage. Repeat/follow up CT on 08/09 is stable. - No Chemical DVT prophylaxis. - Keppra for seizure prophylaxis. - Follow up with NS. - PT/ OT. Request to work with the patient 7 days a week. - Try to d/c restraints. Alcohol intoxication/ Lethargy/ Encephalopathy Ativan and Librium on hold due to increased drowsiness. Seroquel also d/c. ABG noted. TSH on low end of normal. Ammonia level elevated. - start lactulose, titrate to 3-4 BMs daily. - check T3, free T4. - neurology consult requested. Thrombocytopenia Likely related to chronic alcohol abuse. The patient received transfusion on 08/08. - Platelets have been stable. Monitor. Aspiration pneumonia CXR with improvement. Blood cultures negative to date. - Continue Levaquin and Flagyl. D/c 08/14. COPD The pt has wheezing on exam. Repeat CXR with improvement. ABG noted. - continue nebs and antibiotics. - wean O2 as tolerated. - antibiotics as above. - nebs as needed. Diabetes Well controlled. - Diabetic diet, sliding scale. Hep C Stable. - can be followed up as an outpatient. GI prophylaxis with Pepcid, bilateral SCDs Discharge Planning Awaiting clinical improvement. Transfer to floor. Damien Bellamy DO Aug 17, 2017 11:20
[2017-08-17] MEDS: LACTULOSE SYRUP 20 GM/30 ML CUP PO SCH ×3 (13:20→20:39)
--- NOTE | 2017-08-17 13:48 | MB ---
cc: YANET BRADY M.D. DATE OF CONSULTATION: 08/17/2017. REASON FOR CONSULTATION: Mental status change. HISTORY OF PRESENT ILLNESS: Mr. Valentine is a 66-year-old man who fell sustaining a head injury. He was found to have a subdural hematoma in the right hemisphere and bilateral anterior temporal intraparenchymal hemorrhages. This has remained stable. The last CT of the brain on 08/09 showed no significant change. The patient remains very confused and disoriented. MEDICATIONS: Current medications are: 1. Lactulose 30 mL four times a day. 2. Thiamine. 3. Haldol PRN. 4. Senna. 5. Tylenol PRN. 6. Zofran PRN. 7. DuoNeb. NEUROLOGIC EXAMINATION: VITAL SIGNS: Blood pressure is 119/78, pulse is 87, respiratory rate is 18, temperature 98 degrees. HIGHER CORTICAL FUNCTIONS: He is alert, disoriented to date and place. Recalls 0/3 objects in 3 minutes. Remote memory is poor. He is very confused, and disoriented. Cranial nerves are normal. MOTOR: On motor exam, he has no focal deficits. He has generalized weakness. LABORATORY DATA: The white count is 5700, hemoglobin 16.7, hematocrit 48%, platelets 51,000. Sodium is 136, potassium 4, chloride 100, CO2 29.3, the BUN is 31, creatinine 0.84, glucose 216, AST 12, ALT 17, ammonia 45, TSH 0.4. Tox screen: alcohol level 218. The urinalysis is normal. PT 12.6, INR 1.1, APTT 27.1. IMPRESSION: Status post head trauma with resulting bilateral temporal lobe intraparenchymal hemorrhages as well as a right subdural hematoma. Suspect mental status change largely related to the head trauma. His ammonia level is slightly elevated. There may be a an element of hepatic encephalopathy. Continue lactulose. I would like to obtain an EEG as well to be sure there is no underlying ictal events or seizure activity. MD NETTA Jiménez/VALERIY /1:05 PM /1:45 PM
[2017-08-18] VITALS (8 sets, daily range): BP systolic 101–141; BP diastolic 59–96; PULSE 77–97; RESP 16–25; TEMP 97.4–98.2; O2SAT 5–97
[2017-08-18] MEDS: ACETAMINOPHEN 325 MG TAB PO PRN (00:56)
[2017-08-18] MEDS: RESP: ALBUTEROL 2.5 MG/IPRATROPIUM 0.5 MG NEB (SCH) NEB ×4 (03:47→21:47)
[2017-08-18] MEDS: CHLORHEXIDINE GLUCONATE 2 % 1 PACK (2 CLOTHS) TOP SCH (04:00)
[2017-08-18 05:19] LABS: HEMATOCRIT 46.1 % (39.0-51.0); MEAN CELL VOLUME 93.6 FL (80.0-100.0); MEAN CORPUSCULAR HEMOGLOBIN 31.6 PG (27.0-34.0); MEAN CORPUSCULAR HGB CONC 33.8 % (32.0-36.0); PLATELET COUNT 67 TH/MM3 (150-450); RED BLOOD COUNT 4.92 MIL/MM3 (4.50-5.90); RED CELL DISTRIBUTION WIDTH 15.7 % (11.6-17.2); WHITE BLOOD COUNT 6.1 TH/MM3 (4.0-11.0)
[2017-08-18 05:23] LABS: REVIEW FLAG FINAL
[2017-08-18] MEDS: INSULIN ASPART SUPPLEMENTAL SCALE SQ SCH ×4 (05:58→18:00)
--- NOTE | 2017-08-18 07:19 | HHI.PR ---
Review/Management Diagnosis subdural hematoma. temporal lobe contusions possible hepatic encephalopathy Plan CT brain to follow up on parenchymal hemorrhages and subdural hematoma EEG---r/o seizure activity Diagnosis/Plan: Subjective Subjective Comments No acute events reported Active Medications Current Medications Medications (Trade) Dose Ordered Sig/Sameera Route Start Time Stop Time Status Last Admin (NS Flush) 2 ml UNSCH PRN IV FLUSH 08/07/17 07:00 (NS Flush) 2 ml BID IV FLUSH 08/07/17 09:00 08/17/17 20:39 (Tylenol) 650 mg Q6H PRN PO 08/07/17 07:00 08/18/17 00:56 (Zofran Inj) 4 mg Q6H PRN IV PUSH 08/07/17 07:00 (Duoneb Neb) 1 ampule Q2HR NEB PRN INH 08/07/17 07:00 Miscellaneous Information 1 Q361D XX 08/07/17 07:00 (Chlorhexidine 2% Cloth) Taper DAILY@04 TOP 08/08/17 04:00 08/04/18 03:59 08/11/17 04:00 (Chlorhexidine 2% Cloth) 3 pack UNSCH PRN TOP 08/07/17 07:00 (Tess-Colace) 1 tab BID PO 08/07/17 09:00 08/17/17 20:39 (Milk Of Magnesia Liq) 30 ml Q12H PRN PO 08/07/17 07:00 (Senokot) 17.2 mg Q12H PRN PO 08/07/17 07:00 (Dulcolax Supp) 10 mg DAILY PRN RECTAL 08/07/17 07:00 08/14/17 08:29 Potassium Chloride 100 ml @ 50 mls/hr Q2H PRN IV 08/07/17 07:00 Potassium Chloride 100 ml @ 50 mls/hr Q2H PRN IV 08/07/17 07:00 (K-Lyte Cl Eff) 50 meq UNSCH PRN PO 08/07/17 07:00 08/12/17 11:16 Potassium Chloride 100 ml @ 25 mls/hr UNSCH PRN IV 08/07/17 07:00 Potassium Chloride 100 ml @ 50 mls/hr Q2H PRN IV 08/07/17 07:00 Magnesium Sulfate 4 gm/Sodium Chloride 100 ml @ 50 mls/hr UNSCH PRN IV 08/07/17 07:00 (Mag-Ox) 800 mg UNSCH PRN PO 08/07/17 07:00 Magnesium Sulfate 2 gm/Sodium Chloride 100 ml @ 50 mls/hr UNSCH PRN IV 08/07/17 07:00 (K-Phos) 2,000 mg Q4H PRN PO 08/07/17 07:00 Sodium Phosphate 30 mmol/Sodium Chloride 250 ml @ 42 mls/hr UNSCH PRN IV 08/07/17 07:00 (K-Phos) 2,000 mg UNSCH PRN PO/TUBE 08/07/17 07:00 Potassium Phosphate 30 mmol/ Sodium Chloride 260 ml @ 42 mls/hr UNSCH PRN IV 08/07/17 07:00 (NovoLOG SUPPLEMENTAL SCALE) 1 Q6HR SQ 08/07/17 08:45 08/18/17 05:58 (D50w (Vial) Inj) 25 ml UNSCH PRN IV 08/07/17 07:00 (Glucagon Inj) 1 mg UNSCH PRN IM/SQ 08/07/17 07:00 (Vitamin B1) 100 mg DAILY PO 08/08/17 09:00 08/17/17 09:00 (Ativan Inj) 1 mg Q4H PRN IV PUSH 08/07/17 09:45 Future Hold 08/08/17 05:47 (Ativan Inj) 2 mg Q2H PRN IV PUSH 08/07/17 09:45 Future Hold (Ativan Inj) 2 mg Q15M PRN IV PUSH 08/07/17 09:45 Future Hold (Haldol Inj) 2 mg Q15M PRN IM 08/07/17 09:45 08/17/17 00:57 (Duoneb Neb) 1 ampule Q6HR NEB NEB 08/14/17 22:00 08/18/17 03:47 (Lac-Hydrin 12% Lotion) 1 applic BID TOPICAL 08/15/17 21:00 08/17/17 20:39 (Pepcid) 20 mg BID PO 08/16/17 21:00 08/17/17 20:39 (Lactulose Liq) 30 ml QID PO 08/17/17 11:15 08/17/17 20:39 Allergies Allergies Coded Allergies Sulfa (Sulfonamide Antibiotics) (Unverified Allergy, Severe, UNKNOWN - CHILD, 08/07/17) Exam I&O / VS Vital Signs Date Time Temp Pulse Resp B/P (MAP) Pulse Ox O2 Delivery O2 Flow Rate FiO2 08/18/17 04:00 97.4 91 21 141/96 (111) 94 08/18/17 04:00 91 08/18/17 00:00 97 08/18/17 00:00 98.0 97 25 117/82 (94) 93 08/17/17 20:47 93 Nasal Cannula 3.00 08/17/17 20:00 101 08/17/17 20:00 97.9 101 22 113/73 (86) 93 08/17/17 19:00 93 Nasal Cannula 3.00 08/17/17 16:00 97.6 101 19 131/84 (100) 96 08/17/17 16:00 101 08/17/17 12:00 111 08/17/17 12:00 97.9 111 16 153/87 (109) 93 08/17/17 08:00 98.4 87 18 119/78 (92) 94 08/17/17 08:00 87 08/17/17 07:51 96 Nasal Cannula 4.50 Exam Comments lethargic, arouses with difficulty perrl motor weak floor steward/stewardess bilaterally , no focal deficit Objective Micro and Labs Laboratory Tests Test 08/17/17 12:20 08/18/17 04:23 Free Thyroxine 1.14 Total Triiodothyronine 96 White Blood Count 6.1 Red Blood Count 4.92 Hemoglobin 15.6 Hematocrit 46.1 Mean Corpuscular Volume 93.6 Mean Corpuscular Hemoglobin 31.6 Mean Corpuscular Hemoglobin Concent 33.8 Red Cell Distribution Width 15.7 Platelet Count 67 Mean Platelet Volume 8.6 Date/Time Source Procedure Growth Status 08/07/17 04:40 Blood Peripheral Aerobic Blood Culture - Final NO GROWTH IN 5 DAYS Complete 08/07/17 04:40 Blood Peripheral Anaerobic Blood Culture - Final NO GROWTH IN 5 DAYS Complete Luis Armando Long PhD Aug 18, 2017 07:19
[2017-08-18] MEDS: LACTULOSE SYRUP 20 GM/30 ML CUP PO SCH ×4 (09:00→21:15)
[2017-08-18] MEDS: DOCUSATE SODIUM 50 MG/SENNA 8.6 MG TAB PO SCH ×2 (09:00→21:15)
[2017-08-18] MEDS: SODIUM CHLORIDE 0.9% FLUSH 10 ML FLUSH IV FLUSH SCH ×2 (09:41→21:00)
[2017-08-18] MEDS: FAMOTIDINE 20 MG TAB PO SCH ×2 (09:41→21:15)
[2017-08-18] MEDS: THIAMINE HCL 100 MG TAB PO SCH (09:41)
[2017-08-18] MEDS: LACTIC ACID (AMMONIUM LACTATE) 12% LOTION 225 GM BTL TOPICAL SCH ×2 (09:42→21:15)
--- NOTE | 2017-08-18 14:21 | HHI.PR ---
Subjective Remarks The patient was more alert today. He was still confused. He indicated that he wanted to get out of bed. No acute complaints. Discussed with nursing at the bedside. Objective Vitals Vital Signs Date Time Temp Pulse Resp B/P (MAP) Pulse Ox O2 Delivery O2 Flow Rate FiO2 08/18/17 08:44 94 Nasal Cannula 3.00 08/18/17 08:00 77 08/18/17 08:00 97.7 77 19 101/59 (73) 5 08/18/17 07:00 95 Nasal Cannula 3.00 08/18/17 04:00 97.4 91 21 141/96 (111) 94 08/18/17 04:00 91 08/18/17 00:00 97 08/18/17 00:00 98.0 97 25 117/82 (94) 93 08/17/17 20:47 93 Nasal Cannula 3.00 08/17/17 20:00 101 08/17/17 20:00 97.9 101 22 113/73 (86) 93 08/17/17 19:00 93 Nasal Cannula 3.00 08/17/17 16:00 97.6 101 19 131/84 (100) 96 08/17/17 16:00 101 I/O 08/17/17 08/17/17 08/17/17 08/18/17 08/18/17 08/18/17 07:00 15:00 23:00 07:00 15:00 23:00 Intake Total 550 ml 500 ml Output Total 550 ml 550 ml Balance -550 ml 0 ml 500 ml Intake Oral 550 ml 500 ml Output Urine Total 550 ml 550 ml # Voids 4 # Bowel Movements 0 1 0 Result Diagram: 08/18/17 0423 08/16/17 1549 Imaging Last Impressions Chest X-Ray 08/15/17 0000 Signed Impressions: Service Date/Time: Tuesday, August 15, 2017 15:14 - CONCLUSION: 1. Improved bibasilar airspace disease. Galdino Thakur MD Head CT 08/09/17 0000 Signed Impressions: Service Date/Time: Wednesday, August 09, 2017 09:36 - CONCLUSION: 1. No significant interval change. 2. Stable parenchymal hemorrhage in the anterior left temporal lobe. 3. Stable extra-axial, likely subdural, hemorrhage in the anterior temporal and right posterior parieto-occipital mid to high convexities. 4. Stable subtle intraventricular blood products. 5. No intercurrent new hemorrhage, hydrocephalus, or herniation. Galdino Thakur MD Objective Remarks GENERAL: No distress. SKIN: Warm and dry. HEAD: Normocephalic. EYES: No scleral icterus. No injection or drainage. NECK: Supple, trachea midline. No JVD or lymphadenopathy. CARDIOVASCULAR: Regular rate and rhythm without murmurs, gallops, or rubs. RESPIRATORY: Clear to auscultation bilaterally. GASTROINTESTINAL: Abdomen soft, non-tender, nondistended. MUSCULOSKELETAL: No cyanosis, or edema. NEURO: He moves all extremities. Awake and alert. Does not answer questions accurately. PSYCH: Calm. Medications and IVs Current Medications Medications (Trade) Dose Ordered Sig/Sameera Route Start Time Stop Time Status Last Admin (NS Flush) 2 ml UNSCH PRN IV FLUSH 08/07/17 07:00 (NS Flush) 2 ml BID IV FLUSH 08/07/17 09:00 08/18/17 09:41 (Tylenol) 650 mg Q6H PRN PO 08/07/17 07:00 08/18/17 00:56 (Zofran Inj) 4 mg Q6H PRN IV PUSH 08/07/17 07:00 (Duoneb Neb) 1 ampule Q2HR NEB PRN INH 08/07/17 07:00 Miscellaneous Information 1 Q361D XX 08/07/17 07:00 (Chlorhexidine 2% Cloth) Taper DAILY@04 TOP 08/08/17 04:00 08/04/18 03:59 08/11/17 04:00 (Chlorhexidine 2% Cloth) 3 pack UNSCH PRN TOP 08/07/17 07:00 (Tess-Colace) 1 tab BID PO 08/07/17 09:00 08/17/17 20:39 (Milk Of Magnesia Liq) 30 ml Q12H PRN PO 08/07/17 07:00 (Senokot) 17.2 mg Q12H PRN PO 08/07/17 07:00 (Dulcolax Supp) 10 mg DAILY PRN RECTAL 08/07/17 07:00 08/14/17 08:29 Potassium Chloride 100 ml @ 50 mls/hr Q2H PRN IV 08/07/17 07:00 Potassium Chloride 100 ml @ 50 mls/hr Q2H PRN IV 08/07/17 07:00 (K-Lyte Cl Eff) 50 meq UNSCH PRN PO 08/07/17 07:00 08/12/17 11:16 Potassium Chloride 100 ml @ 25 mls/hr UNSCH PRN IV 08/07/17 07:00 Potassium Chloride 100 ml @ 50 mls/hr Q2H PRN IV 08/07/17 07:00 Magnesium Sulfate 4 gm/Sodium Chloride 100 ml @ 50 mls/hr UNSCH PRN IV 08/07/17 07:00 (Mag-Ox) 800 mg UNSCH PRN PO 08/07/17 07:00 Magnesium Sulfate 2 gm/Sodium Chloride 100 ml @ 50 mls/hr UNSCH PRN IV 08/07/17 07:00 (K-Phos) 2,000 mg Q4H PRN PO 08/07/17 07:00 Sodium Phosphate 30 mmol/Sodium Chloride 250 ml @ 42 mls/hr UNSCH PRN IV 08/07/17 07:00 (K-Phos) 2,000 mg UNSCH PRN PO/TUBE 08/07/17 07:00 Potassium Phosphate 30 mmol/ Sodium Chloride 260 ml @ 42 mls/hr UNSCH PRN IV 08/07/17 07:00 (NovoLOG SUPPLEMENTAL SCALE) 1 Q6HR SQ 08/07/17 08:45 08/18/17 05:58 (D50w (Vial) Inj) 25 ml UNSCH PRN IV 08/07/17 07:00 (Glucagon Inj) 1 mg UNSCH PRN IM/SQ 08/07/17 07:00 (Vitamin B1) 100 mg DAILY PO 08/08/17 09:00 08/18/17 09:41 (Ativan Inj) 1 mg Q4H PRN IV PUSH 08/07/17 09:45 Future Hold 08/08/17 05:47 (Ativan Inj) 2 mg Q2H PRN IV PUSH 08/07/17 09:45 Future Hold (Ativan Inj) 2 mg Q15M PRN IV PUSH 08/07/17 09:45 Future Hold (Haldol Inj) 2 mg Q15M PRN IM 08/07/17 09:45 08/17/17 00:57 (Duoneb Neb) 1 ampule Q6HR NEB NEB 08/14/17 22:00 08/18/17 08:41 (Lac-Hydrin 12% Lotion) 1 applic BID TOPICAL 08/15/17 21:00 08/18/17 09:42 (Pepcid) 20 mg BID PO 08/16/17 21:00 08/18/17 09:41 (Lactulose Liq) 30 ml QID PO 08/17/17 11:15 08/17/17 20:39 A/P Assessment and Plan Subdural hematoma: This a 66-year-old male who was admitted to the hospital on 08/07 after a fall at a bar that resulted in subdural hematoma and bitemporal small bleeds. Dr. Duque (neurosurgery) has seen and evaluated the patient. Nonoperative treatment. On 08/08 CT showed new left temporal intraparenchymal hemorrhage. Repeat/follow up CT on 08/09 is stable. - No Chemical DVT prophylaxis. - Keppra for seizure prophylaxis. - Follow up with NS. - PT/ OT. Request to work with the patient 7 days a week. - restraints have been discontinued. Alcohol intoxication/ Lethargy/ Encephalopathy Ativan and Librium on hold due to increased drowsiness. Seroquel also d/c. ABG noted. TSH on low end of normal. Total T3 and free T4 within normal limits. Ammonia level elevated. - start lactulose, titrate to 3-4 BMs daily. - neurology consult appreciated. EEG pending. Thrombocytopenia Likely related to chronic alcohol abuse. The patient received transfusion on 08/08. - Platelets have been stable. Monitor. Aspiration pneumonia CXR with improvement. Blood cultures negative to date. - Continue Levaquin and Flagyl. D/c 08/14. COPD The pt has wheezing on exam. Repeat CXR with improvement. ABG noted. - continue nebs and antibiotics. - wean O2 as tolerated. - antibiotics as above. - nebs as needed. Diabetes Well controlled. - Diabetic diet, sliding scale. Hep C Stable. - can be followed up as an outpatient. GI prophylaxis with Pepcid, bilateral SCDs Discharge Planning Awaiting clinical improvement. Transfer to floor. Damien Bellamy DO Aug 18, 2017 14:21
--- NOTE | 2017-08-18 16:55 | HHI.NSPN ---
Note Status Status: Progress Note Interval History Interval History 66-year-old male who was brought to the ER by [facility] after passing out at a local bar. There was limited history available in view of altered mental status. Patient was found to have subdural hematoma and bitemporal small bleeds /contusions. Dr. Duque from neurosurgery was contacted by ER physician and requested patient be admitted by critical care medicine service to the ICU with consulted for neurosurgery. Patient was accepted for admission by critical care medicine service. Patient did have an elevated EtOH level. When I evaluated the patient in the ER he was drowsy, easily arousable, new he was at the hospital however otherwise was confused and disoriented. He could not tell me how he was brought to the hospital. History was obtained by reviewing records and discussion with ER physician and nursing staff. 08/08: f/u CT Head this morning with new left temporal intraparenchymal hemorrhage. patient appears mildly drowsy but awake - reports he is ok. 08/09: sleeping but arouses briefly, followed only few simple commands, ?aphasic 08/10: remains ?aphasic, moving all four extremities, turning himself over in bed. awake and mumbling 08/11: nursing reports more awake, restless all night, sleepy during the day. 08/12: more awake this morning, saying "hello" and smiling. 08/13: no significant changes to neuro examination 08/14: talking a little more, still rather aphasic. being fed breakfast, smiling. 08/18. Appears more awake and interactive. Expressive aphasia. remains confused. Wants to seat up Labs, Micro, & Vital Signs Results Date Time Temp Pulse Resp B/P (MAP) Pulse Ox O2 Delivery O2 Flow Rate FiO2 08/18/17 12:00 85 08/18/17 12:00 97.6 85 19 120/66 (84) 95 08/18/17 08:44 94 Nasal Cannula 3.00 08/18/17 08:00 77 08/18/17 08:00 97.7 77 19 101/59 (73) 95 08/18/17 07:00 95 Nasal Cannula 3.00 11/13/17 04:00 97.4 91 21 141/96 (111) 94 08/18/17 04:00 91 08/18/17 00:00 97 08/18/17 00:00 98.0 97 25 117/82 (94) 93 08/17/17 20:47 93 Nasal Cannula 3.00 08/17/17 20:00 101 08/17/17 20:00 97.9 101 22 113/73 (86) 93 08/17/17 19:00 93 Nasal Cannula 3.00 Constitutional Vital Signs Date Time Temp Pulse Resp B/P (MAP) Pulse Ox O2 Delivery O2 Flow Rate FiO2 08/18/17 12:00 85 08/18/17 12:00 97.6 85 19 120/66 (84) 95 08/18/17 08:44 94 Nasal Cannula 3.00 08/18/17 08:00 77 08/18/17 08:00 97.7 77 19 101/59 (73) 95 08/18/17 07:00 95 Nasal Cannula 3.00 08/18/17 04:00 97.4 91 21 141/96 (111) 94 08/18/17 04:00 91 08/18/17 00:00 97 08/18/17 00:00 98.0 97 25 117/82 (94) 93 08/17/17 20:47 93 Nasal Cannula 3.00 08/17/17 20:00 101 08/17/17 20:00 97.9 101 22 113/73 (86) 93 08/17/17 19:00 93 Nasal Cannula 3.00 Physical Exam Mr. Valentine is alert, mumbling but making few sentences. Cranial nerve examination: pupils equal, round. gross eoms intact. Facial motor are symmetric at rest. Motor: he moves all four extremities purposefully, on four point soft restraints Sensory examination: localizes to pain x 4 Neck: soft, supple Cerebellar examination cannot asses due to clinical condition. Medications Current Medications Current Medications Sodium Chloride (NS Flush) 2 ml UNSCH PRN IVF FLUSH AFTER USING IV ACCESS; Start 08/07/17 at 04:30; Stop 08/07/17 at 07:24; Status DC Potassium Chloride (KCl) 40 meq ONCE ONCE PO Last administered on 08/07/17t 06 :11; Start 08/07/17 at 06:00; Stop 08/07/17 at 06:01; Status DC Magnesium Oxide (Mag-Ox) 400 mg ONCE ONCE PO Last administered on 08/07/17 08 :43; Start 08/07/17 at 06:00; Stop 08/07/17 at 06:01; Status DC Potassium Chloride/Sodium Chloride 1,000 ml @ 100 mls/hr Q10H IV Last administered on 08/11/17 03:04; Start 08/07/17 at 08:00; Stop 08/11/17 at 08:46 ; Status DC Sodium Chloride (NS Flush) 2 ml UNSCH PRN IV FLUSH FLUSH AFTER USING IV ACCESS ; Start 08/07/17 at 07:00 Sodium Chloride (NS Flush) 2 ml BID IV FLUSH Last administered on 08/19/17 09 :24; Start 08/07/17 at 09:00 Acetaminophen (Tylenol) 650 mg Q6H PRN PO PAIN 1-10 AND/OR FEVER >101F Last administered on 08/18/17 00:56; Start 08/07/17 at 07:00 Famotidine (Pepcid Inj) 20 mg Q12HR IV PUSH Last administered on 08/16/17 08: 02; Start 08/07/17 at 09:00; Stop 08/16/17 at 16:05; Status DC Ondansetron HCl (Zofran Inj) 4 mg Q6H PRN IV PUSH NAUSEA OR VOMITING; Start at 07:00 Albuterol/ Ipratropium (Duoneb Neb) 1 ampule Q2HR NEB PRN INH WHEEZING; Start 08/07/17 at 07:00 Miscellaneous Information 1 Q361D XX ; Start 08/07/17 at 07:00 Chlorhexidine Gluconate (Chlorhexidine 2% Cloth) Taper DAILY@04 TOP Last administered on 08/19/17 04:00; Start 08/08/17 at 04:00; Stop 08/04/18 at 03: 59 Chlorhexidine Gluconate (Chlorhexidine 2% Cloth) 3 pack UNSCH PRN TOP HYGIENIC CARE; Start 08/07/17 at 07:00 Senna/Docusate Sodium (Tess-Colace) 1 tab BID PO Last administered on 09:24; Start 08/07/17 at 09:00 Magnesium Hydroxide (Milk Of Magnesia Liq) 30 ml Q12H PRN PO Mild constipation ; Start 08/07/17 at 07:00 Sennosides (Senokot) 17.2 mg Q12H PRN PO Moderate constipation; Start 08/07/17 at 07:00 Bisacodyl (Dulcolax Supp) 10 mg DAILY PRN RECTAL SEVERE CONSITIPATION Last administered on 08/14/17t 08:29; Start 08/07/17 at 07:00 Lactulose (Lactulose Liq) 30 ml DAILY PRN PO SEVERE CONSITIPATION; Start at 07:00; Stop 08/17/17 at 11:02; Status DC Potassium Chloride 100 ml @ 50 mls/hr Q2H PRN IV For Potassium 2.8 - 3.2 mEq/L ; Start 08/07/17 at 07:00 Potassium Chloride 100 ml @ 50 mls/hr Q2H PRN IV For Potassium 2.8 - 3.2 mEq/L ; Start 08/07/17 at 07:00 Potassium Bicarb/ Potassium Chloride (K-Lyte Cl Eff) 50 meq UNSCH PRN PO For Potassium 3.3 - 3.5 mEq/L Last administered on 08/12/17t 11:16; Start 08/07/17 at 07:00 Potassium Chloride 100 ml @ 25 mls/hr UNSCH PRN IV For Potassium 3.3 - 3.5 mEq /L; Start 08/07/17 at 07:00 Potassium Chloride 100 ml @ 50 mls/hr Q2H PRN IV For Potassium 3.3 - 3.5 mEq/L ; Start 08/07/17 at 07:00 Magnesium Sulfate 4 gm/Sodium Chloride 100 ml @ 50 mls/hr UNSCH PRN IV For Magnesium 0.9 - 1.1 mg/dL; Start 08/07/17 at 07:00 Magnesium Oxide (Mag-Ox) 800 mg UNSCH PRN PO For Magnesium 1.2 - 1.6 mg/dL; Start 08/07/17 at 07:00 Magnesium Sulfate 2 gm/Sodium Chloride 100 ml @ 50 mls/hr UNSCH PRN IV For Magnesium 1.2 - 1.6 mg/dL; Start 08/07/17 at 07:00 Potassium Phosphate (K-Phos) 2,000 mg Q4H PRN PO For Phosphorus < 2.5 mg/dL; Start 08/07/17 at 07:00 Sodium Phosphate 30 mmol/Sodium Chloride 250 ml @ 42 mls/hr UNSCH PRN IV For Phosphorus < 2.5 mg/dL; Start 08/07/17 at 07:00 Potassium Phosphate (K-Phos) 2,000 mg UNSCH PRN PO/TUBE SEE LABEL COMMENTS; Start 08/07/17 at 07:00 Potassium Phosphate 30 mmol/ Sodium Chloride 260 ml @ 42 mls/hr UNSCH PRN IV SEE LABEL COMMENTS; Start 08/07/17 at 07:00 Insulin Aspart (NovoLOG SUPPLEMENTAL SCALE) 1 Q6HR SQ Last administered on 06:00; Start 08/07/17 at 08:45 Dextrose (D50w (Vial) Inj) 25 ml UNSCH PRN IV HYPOGLYCEMIA-SEE COMMENTS; Start 08/07/17 at 07:00 Glucagon (Glucagon Inj) 1 mg UNSCH PRN IM/SQ HYPOGLYCEMIA-SEE COMMENTS; Start 08/07/17 at 07:00 Levofloxacin/ Dextrose 150 ml @ 100 mls/hr Q24H IV Last administered on 09:07; Start 08/07/17 at 10:00; Stop 08/14/17 at 09:00; Status DC Metronidazole 100 ml @ 100 mls/hr Q8H IV Last administered on 08/14/17 02:35 ; Start 08/07/17 at 10:00; Stop 08/14/17 at 09:00; Status DC Albuterol/ Ipratropium (Duoneb Neb) 1 ampule Q6HR NEB NEB Last administered on 08/10/17 03:31; Start 08/07/17 at 10:00; Stop 08/11/17 at 08:45; Status DC Sodium Chloride 250 ml @ 15 mls/hr ONCE ONCE IV ; Start 08/07/17 at 09:45; Stop 08/08/17 at 02:24; Status DC Folic Acid (Folate) 1 mg DAILY PO Last administered on 08/12/17 08:40; Start 08/08/17 at 09:00; Stop 08/13/17 at 08:59; Status DC Thiamine HCl (Vitamin B1) 100 mg DAILY PO Last administered on 11/14/17at 09:24 ; Start 08/08/17 at 09:00 Multivitamins/ Minerals Therapeutic (Theragran M Tab) 1 tab DAILY PO Last administered on 08/12/17 08:40; Start 08/08/17 at 09:00; Stop 08/13/17 at 08:59 ; Status DC Lorazepam (Ativan Inj) 1 mg Q4H PRN IV PUSH CIWA 8 - 10 Last administered on 05:47; Start 08/07/17 at 09:45; Status Future Hold Lorazepam (Ativan Inj) 2 mg Q2H PRN IV PUSH CIWA 11-14; Start 08/07/17 at 09:45 ; Status Future Hold Lorazepam (Ativan Inj) 2 mg Q15M PRN IV PUSH CIWA > 20; Start 08/07/17 at 09:45 ; Status Future Hold Haloperidol Lactate (Haldol Inj) 2 mg Q15M PRN IM SEE LABEL COMMENTS Last administered on 08/17/17 00:57; Start 08/07/17 at 09:45 Multivitamins 10 ml/Thiamine HCl 100 mg/Folic Acid 1 mg/Sodium Chloride 511.2 ml @ 125 mls/hr Q24H IV Last administered on 08/10/17 12:04; Start 08/10/17 at 12:00; Stop 08/11/17 at 10:59; Status DC Albuterol/ Ipratropium (Duoneb Neb) 1 ampule Q6HR NEB NEB Last administered on 08/14/17 09:59; Start 08/11/17 at 10:00; Stop 08/14/17 at 17:09; Status DC Albuterol/ Ipratropium (Duoneb Neb) 1 ampule Q6HR NEB NEB Last administered on 08/12/17 09:15; Start 08/11/17 at 10:00; Stop 08/12/17 at 16:14; Status DC Potassium Chloride (KCl) 40 meq ONCE ONCE PO ; Start 08/12/17 at 11:15; Stop 08/12/17 at 11:16; Status DC Bisacodyl (Dulcolax Supp) 10 mg ONCE ONCE RECTAL Last administered on 17:43; Start 08/13/17 at 17:15; Stop 08/13/17 at 17:16; Status DC Albuterol/ Ipratropium (Duoneb Neb) 1 ampule Q6HR NEB NEB Last administered on 08/18/17 08:41; Start 08/14/17 at 22:00; Stop 08/18/17 at 21:59; Status DC Quetiapine Fumarate (SEROquel) 25 mg BID PO Last administered on 08/16/17 08: 02; Start 08/14/17 at 21:00; Stop 08/16/17 at 16:05; Status DC Lactic Acid (Lac-Hydrin 12% Lotion) 1 applic BID TOPICAL Last administered on 08/19/17 09:24; Start 08/15/17 at 21:00 Famotidine (Pepcid) 20 mg BID PO Last administered on 08/19/17 09:24; Start 08/16/17 at 21:00 Lactulose (Lactulose Liq) 30 ml QID PO Last administered on 08/19/17 11:50; Start 08/17/17 at 11:15 Plan Plan Remarks 66 y/o male s/p fall due to acute etoh intoxication etoh abuse with history of prior falls and TBI slowly improving Attending Statement neurologically stable Continue neuro checks Kera for seizure prophylaxis. PT/ OT 7 days a week. Alcohol intoxication/ Lethargy/ Encephalopathy Ativan and Librium on hold due to increased drowsiness. Seroquel also d/c. ABG noted. TSH on low end of normal. Total T3 and free T4 within normal limits. Ammonia level elevated. lactulose, titrate to 3-4 BMs daily. Thrombocytopenia Likely related to chronic alcohol abuse. Platelets have been stable. Monitor. Aspiration pneumonia CXR with improvement. Blood cultures negative Continue Levaquin and Flagyl. D/c 08/14. COPD continue nebs and antibiotics. wean O2 as tolerated. antibiotics as above. nebs as needed. Diabetes Well controlled. Diabetic diet, sliding scale. Hep C Stable. GI prophylaxis with Pepcid bilateral Ron hose and SCDs Discharge planning in progress Rasheed Duque MD Aug 18, 2017 16:55
--- NOTE | 2017-08-18 17:54 | MG ---
cc: YANET BRADY Lab No: Date: 08/17/2017 Age: Sex: M Race: TEST NUMBER [id number] TECHNIQUE 17 channel EEG. DESCRIPTION The background activity reveals symmetrical slowing in the theta frequency at 6 Hz. Amplitude is about 20 microvolts. There are no lateralizing features seen. There are no epileptiform discharges. There is occasional muscle artifact. Hyperventilation was not done. Photic results in a poor driving response. INTERPRETATION Abnormal study consistent with a moderate encephalopathy. MD NETTA Jiménez/KK /5:00 PM /5:48 PM
[2017-08-19] VITALS (8 sets, daily range): BP systolic 113–132; BP diastolic 68–82; PULSE 88–102; RESP 15–24; TEMP 97.6–98.9; O2SAT 94–98
[2017-08-19] MEDS: CHLORHEXIDINE GLUCONATE 2 % 1 PACK (2 CLOTHS) TOP SCH (04:00)
[2017-08-19] MEDS: INSULIN ASPART SUPPLEMENTAL SCALE SQ SCH ×4 (06:00→17:01)
[2017-08-19] MEDS: LACTULOSE SYRUP 20 GM/30 ML CUP PO SCH ×4 (09:24→21:23)
[2017-08-19] MEDS: FAMOTIDINE 20 MG TAB PO SCH ×2 (09:24→21:23)
[2017-08-19] MEDS: THIAMINE HCL 100 MG TAB PO SCH (09:24)
[2017-08-19] MEDS: LACTIC ACID (AMMONIUM LACTATE) 12% LOTION 225 GM BTL TOPICAL SCH ×2 (09:24→21:00)
[2017-08-19] MEDS: DOCUSATE SODIUM 50 MG/SENNA 8.6 MG TAB PO SCH ×2 (09:24→21:00)
[2017-08-19] MEDS: SODIUM CHLORIDE 0.9% FLUSH 10 ML FLUSH IV FLUSH SCH ×2 (09:24→21:24)
--- NOTE | 2017-08-19 12:14 | HHI.NSPN ---
66-year-old male who was brought to the ER by [facility] after passing out at a local bar. There was limited history available in view of altered mental status. Patient was found to have subdural hematoma and bitemporal small bleeds /contusions. Dr. Duque from neurosurgery was contacted by ER physician and requested patient be admitted by critical care medicine service to the ICU with consulted for neurosurgery. Patient was accepted for admission by critical care medicine service. Patient did have an elevated EtOH level. When I evaluated the patient in the ER he was drowsy, easily arousable, new he was at the hospital however otherwise was confused and disoriented. He could not tell me how he was brought to the hospital. History was obtained by reviewing records and discussion with ER physician and nursing staff. 08/08: f/u CT Head this morning with new left temporal intraparenchymal hemorrhage. patient appears mildly drowsy but awake - reports he is ok. 08/09: sleeping but arouses briefly, followed only few simple commands, ?aphasic 08/10: remains ?aphasic, moving all four extremities, turning himself over in bed. awake and mumbling 08/11: nursing reports more awake, restless all night, sleepy during the day. 08/12: more awake this morning, saying "hello" and smiling. 08/13: no significant changes to neuro examination 08/14: talking a little more, still rather aphasic. being fed breakfast, smiling. 08/18. Appears more awake and interactive. Expressive aphasia 08/19. No significant changes. Comfortable. Stable vital signs Medications Medications Current Medications Current Medications Medications (Trade) Dose Ordered Sig/Sameera Route PRN Reason Start Time Stop Time Status Last Admin Dose Admin Sodium Chloride (NS Flush) 2 ml UNSCH PRN IV FLUSH FLUSH AFTER USING IV ACCESS 08/07/17 07:00 Sodium Chloride (NS Flush) 2 ml BID IV FLUSH 08/07/17 09:00 08/14/17 08:28 Acetaminophen (Tylenol) 650 mg Q6H PRN PO PAIN 1-10 AND/OR FEVER >101F 08/07/17 07:00 Famotidine (Pepcid Inj) 20 mg Q12HR IV PUSH 08/07/17 09:00 08/14/17 08:28 Ondansetron HCl (Zofran Inj) 4 mg Q6H PRN IV PUSH NAUSEA OR VOMITING 08/07/17 07:00 Albuterol/ Ipratropium (Duoneb Neb) 1 ampule Q2HR NEB PRN INH WHEEZING 08/07/17 07:00 Miscellaneous Information 1 Q361D XX 08/07/17 07:00 Chlorhexidine Gluconate (Chlorhexidine 2% Cloth) Taper DAILY@04 TOP 08/08/17 04:00 08/04/18 03:59 08/11/17 04:00 Chlorhexidine Gluconate (Chlorhexidine 2% Cloth) 3 pack UNSCH PRN TOP HYGIENIC CARE 08/07/17 07:00 Senna/Docusate Sodium (Tess-Colace) 1 tab BID PO 08/07/17 09:00 08/14/17 08:28 Magnesium Hydroxide (Milk Of Magnesia Liq) 30 ml Q12H PRN PO Mild constipation 08/07/17 07:00 Sennosides (Senokot) 17.2 mg Q12H PRN PO Moderate constipation 08/07/17 07:00 Bisacodyl (Dulcolax Supp) 10 mg DAILY PRN RECTAL SEVERE CONSITIPATION 08/07/17 07:00 08/14/17 08:29 Lactulose (Lactulose Liq) 30 ml DAILY PRN PO SEVERE CONSITIPATION 08/07/17 07:00 Potassium Chloride 100 ml @ 50 mls/hr Q2H PRN IV For Potassium 2.8 - 3.2 mEq/L 08/07/17 07:00 Potassium Chloride 100 ml @ 50 mls/hr Q2H PRN IV For Potassium 2.8 - 3.2 mEq/L 08/07/17 07:00 Potassium Bicarb/ Potassium Chloride (K-Lyte Cl Eff) 50 meq UNSCH PRN PO For Potassium 3.3 - 3.5 mEq/L 08/07/17 07:00 08/12/17 11:16 Potassium Chloride 100 ml @ 25 mls/hr UNSCH PRN IV For Potassium 3.3 - 3.5 mEq/L 08/07/17 07:00 Potassium Chloride 100 ml @ 50 mls/hr Q2H PRN IV For Potassium 3.3 - 3.5 mEq/L 08/07/17 07:00 Magnesium Sulfate 4 gm/Sodium Chloride 100 ml @ 50 mls/hr UNSCH PRN IV For Magnesium 0.9 - 1.1 mg/dL 08/07/17 07:00 Magnesium Oxide (Mag-Ox) 800 mg UNSCH PRN PO For Magnesium 1.2 - 1.6 mg/dL 08/07/17 07:00 Magnesium Sulfate 2 gm/Sodium Chloride 100 ml @ 50 mls/hr UNSCH PRN IV For Magnesium 1.2 - 1.6 mg/dL 08/07/17 07:00 Potassium Phosphate (K-Phos) 2,000 mg Q4H PRN PO For Phosphorus < 2.5 mg/dL 08/07/17 07:00 Sodium Phosphate 30 mmol/Sodium Chloride 250 ml @ 42 mls/hr UNSCH PRN IV For Phosphorus < 2.5 mg/dL 08/07/17 07:00 Potassium Phosphate (K-Phos) 2,000 mg UNSCH PRN PO/TUBE SEE LABEL COMMENTS 08/07/17 07:00 Potassium Phosphate 30 mmol/ Sodium Chloride 260 ml @ 42 mls/hr UNSCH PRN IV SEE LABEL COMMENTS 08/07/17 07:00 Insulin Aspart (NovoLOG SUPPLEMENTAL SCALE) 1 Q6HR SQ 08/07/17 08:45 08/14/17 06:39 Dextrose (D50w (Vial) Inj) 25 ml UNSCH PRN IV HYPOGLYCEMIA-SEE COMMENTS 08/07/17 07:00 Glucagon (Glucagon Inj) 1 mg UNSCH PRN IM/SQ HYPOGLYCEMIA-SEE COMMENTS 08/07/17 07:00 Thiamine HCl (Vitamin B1) 100 mg DAILY PO 08/08/17 09:00 08/14/17 08:28 Lorazepam (Ativan Inj) 1 mg Q4H PRN IV PUSH CIWA 8 - 10 08/07/17 09:45 Future Hold 08/08/17 05:47 Lorazepam (Ativan Inj) 2 mg Q2H PRN IV PUSH CIWA 11-14 08/07/17 09:45 Future Hold Lorazepam (Ativan Inj) 2 mg Q15M PRN IV PUSH CIWA > 20 08/07/17 09:45 Future Hold Haloperidol Lactate (Haldol Inj) 2 mg Q15M PRN IM SEE LABEL COMMENTS 08/07/17 09:45 08/12/17 22:38 Albuterol/ Ipratropium (Duoneb Neb) 1 ampule Q6HR NEB NEB 08/11/17 10:00 08/14/17 09:59 (Deja Dee) Current Medications Current Medications Sodium Chloride (NS Flush) 2 ml UNSCH PRN IVF FLUSH AFTER USING IV ACCESS; Start 08/07/17 at 04:30; Stop 08/07/17 at 07:24; Status DC Potassium Chloride (KCl) 40 meq ONCE ONCE PO Last administered on 08/07/17 06 :11; Start 08/07/17 at 06:00; Stop 08/07/17 at 06:01; Status DC Magnesium Oxide (Mag-Ox) 400 mg ONCE ONCE PO Last administered on 08/07/17 08 :43; Start 08/07/17 at 06:00; Stop 08/07/17 at 06:01; Status DC Potassium Chloride/Sodium Chloride 1,000 ml @ 100 mls/hr Q10H IV Last administered on 08/11/17 03:04; Start 08/07/17 at 08:00; Stop 08/11/17 at 08:46 ; Status DC Sodium Chloride (NS Flush) 2 ml UNSCH PRN IV FLUSH FLUSH AFTER USING IV ACCESS ; Start 08/07/17 at 07:00 Sodium Chloride (NS Flush) 2 ml BID IV FLUSH Last administered on 08/14/17 08: 28; Start 08/07/17 at 09:00 Acetaminophen (Tylenol) 650 mg Q6H PRN PO PAIN 1-10 AND/OR FEVER >101F; Start 08/07/17 at 07:00 Famotidine (Pepcid Inj) 20 mg Q12HR IV PUSH Last administered on 08/14/17 08: 28; Start 08/07/17 at 09:00 Ondansetron HCl (Zofran Inj) 4 mg Q6H PRN IV PUSH NAUSEA OR VOMITING; Start at 07:00 Albuterol/ Ipratropium (Duoneb Neb) 1 ampule Q2HR NEB PRN INH WHEEZING; Start 08/07/17 at 07:00 Miscellaneous Information 1 Q361D XX ; Start 08/07/17 at 07:00 Chlorhexidine Gluconate (Chlorhexidine 2% Cloth) Taper DAILY@04 TOP Last administered on 08/11/17 04:00; Start 08/08/17 at 04:00; Stop 08/04/18 at 03: 59 Chlorhexidine Gluconate (Chlorhexidine 2% Cloth) 3 pack UNSCH PRN TOP HYGIENIC CARE; Start 08/07/17 at 07:00 Senna/Docusate Sodium (Tess-Colace) 1 tab BID PO Last administered on 08:28; Start 08/07/17 at 09:00 Magnesium Hydroxide (Milk Of Magnesia Liq) 30 ml Q12H PRN PO Mild constipation ; Start 08/07/17 at 07:00 Sennosides (Senokot) 17.2 mg Q12H PRN PO Moderate constipation; Start 08/07/17 at 07:00 Bisacodyl (Dulcolax Supp) 10 mg DAILY PRN RECTAL SEVERE CONSITIPATION Last administered on 08/14/17 08:29; Start 08/07/17 at 07:00 Lactulose (Lactulose Liq) 30 ml DAILY PRN PO SEVERE CONSITIPATION; Start at 07:00 Potassium Chloride 100 ml @ 50 mls/hr Q2H PRN IV For Potassium 2.8 - 3.2 mEq/L ; Start 08/07/17 at 07:00 Potassium Chloride 100 ml @ 50 mls/hr Q2H PRN IV For Potassium 2.8 - 3.2 mEq/L ; Start 08/07/17 at 07:00 Potassium Bicarb/ Potassium Chloride (K-Lyte Cl Eff) 50 meq UNSCH PRN PO For Potassium 3.3 - 3.5 mEq/L Last administered on 08/12/17 11:16; Start 08/07/17 at 07:00 Potassium Chloride 100 ml @ 25 mls/hr UNSCH PRN IV For Potassium 3.3 - 3.5 mEq /L; Start 08/07/17 at 07:00 Potassium Chloride 100 ml @ 50 mls/hr Q2H PRN IV For Potassium 3.3 - 3.5 mEq/L ; Start 08/07/17 at 07:00 Magnesium Sulfate 4 gm/Sodium Chloride 100 ml @ 50 mls/hr UNSCH PRN IV For Magnesium 0.9 - 1.1 mg/dL; Start 08/07/17 at 07:00 Magnesium Oxide (Mag-Ox) 800 mg UNSCH PRN PO For Magnesium 1.2 - 1.6 mg/dL; Start 08/07/17 at 07:00 Magnesium Sulfate 2 gm/Sodium Chloride 100 ml @ 50 mls/hr UNSCH PRN IV For Magnesium 1.2 - 1.6 mg/dL; Start 08/07/17 at 07:00 Potassium Phosphate (K-Phos) 2,000 mg Q4H PRN PO For Phosphorus < 2.5 mg/dL; Start 08/07/17 at 07:00 Sodium Phosphate 30 mmol/Sodium Chloride 250 ml @ 42 mls/hr UNSCH PRN IV For Phosphorus < 2.5 mg/dL; Start 08/07/17 at 07:00 Potassium Phosphate (K-Phos) 2,000 mg UNSCH PRN PO/TUBE SEE LABEL COMMENTS; Start 08/07/17 at 07:00 Potassium Phosphate 30 mmol/ Sodium Chloride 260 ml @ 42 mls/hr UNSCH PRN IV SEE LABEL COMMENTS; Start 08/07/17 at 07:00 Insulin Aspart (NovoLOG SUPPLEMENTAL SCALE) 1 Q6HR SQ Last administered on 08/14 06:39; Start 08/07/17 at 08:45 Dextrose (D50w (Vial) Inj) 25 ml UNSCH PRN IV HYPOGLYCEMIA-SEE COMMENTS; Start 08/07/17 at 07:00 Glucagon (Glucagon Inj) 1 mg UNSCH PRN IM/SQ HYPOGLYCEMIA-SEE COMMENTS; Start 08/07/17 at 07:00 Levofloxacin/ Dextrose 150 ml @ 100 mls/hr Q24H IV Last administered on 09:07; Start 08/07/17 at 10:00; Stop 08/14/17 at 09:00; Status DC Metronidazole 100 ml @ 100 mls/hr Q8H IV Last administered on 08/14/17 02:35 ; Start 08/07/17 at 10:00; Stop 08/14/17 at 09:00; Status DC Albuterol/ Ipratropium (Duoneb Neb) 1 ampule Q6HR NEB NEB Last administered on 08/10/17 03:31; Start 08/07/17 at 10:00; Stop 08/11/17 at 08:45; Status DC Sodium Chloride 250 ml @ 15 mls/hr ONCE ONCE IV ; Start 08/07/17 at 09:45; Stop 08/08/17 at 02:24; Status DC Folic Acid (Folate) 1 mg DAILY PO Last administered on 08/12/17 08:40; Start 08/08/17 at 09:00; Stop 08/13/17 at 08:59; Status DC Thiamine HCl (Vitamin B1) 100 mg DAILY PO Last administered on 08/14/17 08:28 ; Start 08/08/17 at 09:00 Multivitamins/ Minerals Therapeutic (Theragran M Tab) 1 tab DAILY PO Last administered on 08/12/17 08:40; Start 08/08/17 at 09:00; Stop 08/13/17 at 08:59 ; Status DC Lorazepam (Ativan Inj) 1 mg Q4H PRN IV PUSH CIWA 8 - 10 Last administered on 05:47; Start 08/07/17 at 09:45; Status Future Hold Lorazepam (Ativan Inj) 2 mg Q2H PRN IV PUSH CIWA 11-14; Start 08/07/17 at 09:45 ; Status Future Hold Lorazepam (Ativan Inj) 2 mg Q15M PRN IV PUSH CIWA > 20; Start 08/07/17 at 09:45 ; Status Future Hold Haloperidol Lactate (Haldol Inj) 2 mg Q15M PRN IM SEE LABEL COMMENTS Last administered on 08/12/17 22:38; Start 08/07/17 at 09:45 Multivitamins 10 ml/Thiamine HCl 100 mg/Folic Acid 1 mg/Sodium Chloride 511.2 ml @ 125 mls/hr Q24H IV Last administered on 08/10/17 12:04; Start 08/10/17 at 12:00; Stop 08/11/17 at 10:59; Status DC Albuterol/ Ipratropium (Duoneb Neb) 1 ampule Q6HR NEB NEB Last administered on 08/14/17 09:59; Start 08/11/17 at 10:00; Stop 08/14/17 at 17:09; Status DC Albuterol/ Ipratropium (Duoneb Neb) 1 ampule Q6HR NEB NEB Last administered on 08/12/17 09:15; Start 08/11/17 at 10:00; Stop 08/12/17 at 16:14; Status DC Potassium Chloride (KCl) 40 meq ONCE ONCE PO ; Start 08/12/17 at 11:15; Stop 08/12/17 at 11:16; Status DC Bisacodyl (Dulcolax Supp) 10 mg ONCE ONCE RECTAL Last administered on 17:43; Start 08/13/17 at 17:15; Stop 08/13/17 at 17:16; Status DC Albuterol/ Ipratropium (Duoneb Neb) 1 ampule Q6HR NEB NEB Last administered on 08/14/17 20:03; Start 08/14/17 at 22:00 Quetiapine Fumarate (SEROquel) 25 mg BID PO ; Start 08/14/17 at 21:00 (Rasheed Duque MD) Medical Decision Making Medical Decision Making MDM Remarks 66 y/o male s/p fall due to acute etoh intoxication etoh abuse with history of prior falls and TBI f/u CT Head 08/08 with new left temporal parenchymal hematoma, stable follow up CT 08/09 pt remains aphasic, slowly improving, mental status improving. (Deja Dee) Plan Plan Plan Remarks cont medical management cont therapy and rehab efforts, neurologically stable Note Status Status: Progress Note Labs, Micro, & Vital Signs Results Date Time Temp Pulse Resp B/P (MAP) Pulse Ox O2 Delivery O2 Flow Rate FiO2 08/19/17 07:58 98 Nasal Cannula 1.00 08/19/17 04:00 98 08/19/17 04:00 98.6 97 15 123/79 (94) 98 08/19/17 00:00 98 08/19/17 00:00 98.6 97 15 123/79 (94) 98 08/18/17 21:55 96 Nasal Cannula 3.00 08/18/17 20:00 98.2 90 18 129/75 (93) 96 08/18/17 20:00 77 08/18/17 19:00 92 Nasal Cannula 3.00 08/18/17 16:00 86 08/18/17 16:00 98.1 86 16 107/64 (78) 97 Constitutional Vital Signs Date Time Temp Pulse Resp B/P (MAP) Pulse Ox O2 Delivery O2 Flow Rate FiO2 08/19/17 07:58 98 Nasal Cannula 1.00 08/19/17 04:00 98 08/19/17 04:00 98.6 97 15 123/79 (94) 98 08/19/17 00:00 98 08/19/17 00:00 98.6 97 15 123/79 (94) 98 08/18/17 21:55 96 Nasal Cannula 3.00 08/18/17 20:00 98.2 90 18 129/75 (93) 96 08/18/17 20:00 77 08/18/17 19:00 92 Nasal Cannula 3.00 08/18/17 16:00 86 08/18/17 16:00 98.1 86 16 107/64 (78) 97 Physical Exam Mr. Valentine is alert, mumbling but making few sentences. Cranial nerve examination: pupils equal, round. gross eoms intact. Facial motor are symmetric at rest. Motor: he moves all four extremities purposefully, on four point soft restraints Sensory examination: localizes to pain x 4 Neck: soft, supple Cerebellar examination cannot asses due to clinical condition. Medications Current Medications Current Medications Sodium Chloride (NS Flush) 2 ml UNSCH PRN IVF FLUSH AFTER USING IV ACCESS; Start 08/07/17 at 04:30; Stop 08/07/17 at 07:24; Status DC Potassium Chloride (KCl) 40 meq ONCE ONCE PO Last administered on 08/07/17 06 :11; Start 08/07/17 at 06:00; Stop 08/07/17 at 06:01; Status DC Magnesium Oxide (Mag-Ox) 400 mg ONCE ONCE PO Last administered on 08/07/17 08 :43; Start 08/07/17 at 06:00; Stop 08/07/17 at 06:01; Status DC Potassium Chloride/Sodium Chloride 1,000 ml @ 100 mls/hr Q10H IV Last administered on 08/11/17 03:04; Start 08/07/17 at 08:00; Stop 08/11/17 at 08:46 ; Status DC Sodium Chloride (NS Flush) 2 ml UNSCH PRN IV FLUSH FLUSH AFTER USING IV ACCESS ; Start 08/07/17 at 07:00 Sodium Chloride (NS Flush) 2 ml BID IV FLUSH Last administered on 08/19/17 09 :24; Start 08/07/17 at 09:00 Acetaminophen (Tylenol) 650 mg Q6H PRN PO PAIN 1-10 AND/OR FEVER >101F Last administered on 08/18/17 00:56; Start 08/07/17 at 07:00 Famotidine (Pepcid Inj) 20 mg Q12HR IV PUSH Last administered on 08/16/17 08: 02; Start 08/07/17 at 09:00; Stop 08/16/17 at 16:05; Status DC Ondansetron HCl (Zofran Inj) 4 mg Q6H PRN IV PUSH NAUSEA OR VOMITING; Start at 07:00 Albuterol/ Ipratropium (Duoneb Neb) 1 ampule Q2HR NEB PRN INH WHEEZING; Start 08/07/17 at 07:00 Miscellaneous Information 1 Q361D XX ; Start 08/07/17 at 07:00 Chlorhexidine Gluconate (Chlorhexidine 2% Cloth) Taper DAILY@04 TOP Last administered on 08/19/17 04:00; Start 08/08/17 at 04:00; Stop 08/04/18 at 03: 59 Chlorhexidine Gluconate (Chlorhexidine 2% Cloth) 3 pack UNSCH PRN TOP HYGIENIC CARE; Start 08/07/17 at 07:00 Senna/Docusate Sodium (Tess-Colace) 1 tab BID PO Last administered on 09:24; Start 08/07/17 at 09:00 Magnesium Hydroxide (Milk Of Magnesia Liq) 30 ml Q12H PRN PO Mild constipation ; Start 08/07/17 at 07:00 Sennosides (Senokot) 17.2 mg Q12H PRN PO Moderate constipation; Start 08/07/17 at 07:00 Bisacodyl (Dulcolax Supp) 10 mg DAILY PRN RECTAL SEVERE CONSITIPATION Last administered on 08/14/17 08:29; Start 08/07/17 at 07:00 Lactulose (Lactulose Liq) 30 ml DAILY PRN PO SEVERE CONSITIPATION; Start at 07:00; Stop 08/17/17 at 11:02; Status DC Potassium Chloride 100 ml @ 50 mls/hr Q2H PRN IV For Potassium 2.8 - 3.2 mEq/L ; Start 08/07/17 at 07:00 Potassium Chloride 100 ml @ 50 mls/hr Q2H PRN IV For Potassium 2.8 - 3.2 mEq/L ; Start 08/07/17 at 07:00 Potassium Bicarb/ Potassium Chloride (K-Lyte Cl Eff) 50 meq UNSCH PRN PO For Potassium 3.3 - 3.5 mEq/L Last administered on 08/12/17t 11:16; Start 08/07/17 at 07:00 Potassium Chloride 100 ml @ 25 mls/hr UNSCH PRN IV For Potassium 3.3 - 3.5 mEq /L; Start 08/07/17 at 07:00 Potassium Chloride 100 ml @ 50 mls/hr Q2H PRN IV For Potassium 3.3 - 3.5 mEq/L ; Start 08/07/17 at 07:00 Magnesium Sulfate 4 gm/Sodium Chloride 100 ml @ 50 mls/hr UNSCH PRN IV For Magnesium 0.9 - 1.1 mg/dL; Start 08/07/17 at 07:00 Magnesium Oxide (Mag-Ox) 800 mg UNSCH PRN PO For Magnesium 1.2 - 1.6 mg/dL; Start 08/07/17 at 07:00 Magnesium Sulfate 2 gm/Sodium Chloride 100 ml @ 50 mls/hr UNSCH PRN IV For Magnesium 1.2 - 1.6 mg/dL; Start 08/07/17 at 07:00 Potassium Phosphate (K-Phos) 2,000 mg Q4H PRN PO For Phosphorus < 2.5 mg/dL; Start 08/07/17 at 07:00 Sodium Phosphate 30 mmol/Sodium Chloride 250 ml @ 42 mls/hr UNSCH PRN IV For Phosphorus < 2.5 mg/dL; Start 08/07/17 at 07:00 Potassium Phosphate (K-Phos) 2,000 mg UNSCH PRN PO/TUBE SEE LABEL COMMENTS; Start 08/07/17 at 07:00 Potassium Phosphate 30 mmol/ Sodium Chloride 260 ml @ 42 mls/hr UNSCH PRN IV SEE LABEL COMMENTS; Start 08/07/17 at 07:00 Insulin Aspart (NovoLOG SUPPLEMENTAL SCALE) 1 Q6HR SQ Last administered on t 06:00; Start 08/07/17 at 08:45 Dextrose (D50w (Vial) Inj) 25 ml UNSCH PRN IV HYPOGLYCEMIA-SEE COMMENTS; Start 08/07/17 at 07:00 Glucagon (Glucagon Inj) 1 mg UNSCH PRN IM/SQ HYPOGLYCEMIA-SEE COMMENTS; Start 08/07/17 at 07:00 Levofloxacin/ Dextrose 150 ml @ 100 mls/hr Q24H IV Last administered on 09:07; Start 08/07/17 at 10:00; Stop 08/14/17 at 09:00; Status DC Metronidazole 100 ml @ 100 mls/hr Q8H IV Last administered on 08/14/17 02:35 ; Start 08/07/17 at 10:00; Stop 08/14/17 at 09:00; Status DC Albuterol/ Ipratropium (Duoneb Neb) 1 ampule Q6HR NEB NEB Last administered on 08/10/17 03:31; Start 08/07/17 at 10:00; Stop 08/11/17 at 08:45; Status DC Sodium Chloride 250 ml @ 15 mls/hr ONCE ONCE IV ; Start 08/07/17 at 09:45; Stop 08/08/17 at 02:24; Status DC Folic Acid (Folate) 1 mg DAILY PO Last administered on 08/12/17 08:40; Start 08/08/17 at 09:00; Stop 08/13/17 at 08:59; Status DC Thiamine HCl (Vitamin B1) 100 mg DAILY PO Last administered on 08/19/17 09:24 ; Start 08/08/17 at 09:00 Multivitamins/ Minerals Therapeutic (Theragran M Tab) 1 tab DAILY PO Last administered on 08/12/17 08:40; Start 08/08/17 at 09:00; Stop 08/13/17 at 08:59 ; Status DC Lorazepam (Ativan Inj) 1 mg Q4H PRN IV PUSH CIWA 8 - 10 Last administered on 05:47; Start 08/07/17 at 09:45; Status Future Hold Lorazepam (Ativan Inj) 2 mg Q2H PRN IV PUSH CIWA 11-14; Start 08/07/17 at 09:45 ; Status Future Hold Lorazepam (Ativan Inj) 2 mg Q15M PRN IV PUSH CIWA > 20; Start 08/07/17 at 09:45 ; Status Future Hold Haloperidol Lactate (Haldol Inj) 2 mg Q15M PRN IM SEE LABEL COMMENTS Last administered on 08/17/17 00:57; Start 08/07/17 at 09:45 Multivitamins 10 ml/Thiamine HCl 100 mg/Folic Acid 1 mg/Sodium Chloride 511.2 ml @ 125 mls/hr Q24H IV Last administered on 08/10/17 12:04; Start 08/10/17 at 12:00; Stop 08/11/17 at 10:59; Status DC Albuterol/ Ipratropium (Duoneb Neb) 1 ampule Q6HR NEB NEB Last administered on 08/14/17 09:59; Start 08/11/17 at 10:00; Stop 08/14/17 at 17:09; Status DC Albuterol/ Ipratropium (Duoneb Neb) 1 ampule Q6HR NEB NEB Last administered on 08/12/17 09:15; Start 08/11/17 at 10:00; Stop 08/12/17 at 16:14; Status DC Potassium Chloride (KCl) 40 meq ONCE ONCE PO ; Start 08/12/17 at 11:15; Stop 08/12/17 at 11:16; Status DC Bisacodyl (Dulcolax Supp) 10 mg ONCE ONCE RECTAL Last administered on 17:43; Start 08/13/17 at 17:15; Stop 08/13/17 at 17:16; Status DC Albuterol/ Ipratropium (Duoneb Neb) 1 ampule Q6HR NEB NEB Last administered on 08/18/17 08:41; Start 08/14/17 at 22:00; Stop 08/18/17 at 21:59; Status DC Quetiapine Fumarate (SEROquel) 25 mg BID PO Last administered on 08/16/17 08: 02; Start 08/14/17 at 21:00; Stop 08/16/17 at 16:05; Status DC Lactic Acid (Lac-Hydrin 12% Lotion) 1 applic BID TOPICAL Last administered on 08/19/17 09:24; Start 08/15/17 at 21:00 Famotidine (Pepcid) 20 mg BID PO Last administered on 08/19/17 09:24; Start 08/16/17 at 21:00 Lactulose (Lactulose Liq) 30 ml QID PO Last administered on 08/19/17t 11:50; Start 08/17/17 at 11:15 Medical Decision Making MDM Remarks No new radiological studies Plan Plan Remarks 66 y/o male s/p fall due to acute etoh intoxication etoh abuse with history of prior falls and TBI f/u CT Head 08/08 with new left temporal parenchymal hematoma, stable follow up CT 08/09 pt remains aphasic, slowly improving, mental status improving. Attending Statement neurologically stable Continue neuro checks [facility] for seizure prophylaxis. PT/ OT 7 days a week. Alcohol intoxication/ Lethargy/ Encephalopathy Ativan and Librium on hold due to increased drowsiness. Seroquel also d/c. ABG noted. TSH on low end of normal. Total T3 and free T4 within normal limits. Ammonia level elevated. lactulose, titrate to 3-4 BMs daily. Thrombocytopenia Likely related to chronic alcohol abuse. Platelets have been stable. Monitor. Aspiration pneumonia CXR with improvement. Blood cultures negative Continue Levaquin and Flagyl. D/c 08/14. COPD continue nebs and antibiotics. wean O2 as tolerated. antibiotics as above. nebs as needed. Diabetes Well controlled. Diabetic diet, sliding scale. Hep C Stable. GI prophylaxis with Pepcid bilateral Ron hose and SCDs Neurologically stable for discharge Will follow up Rasheed Caro MD Aug 19, 2017 12:14
--- NOTE | 2017-08-19 15:36 | HHI.PR ---
Subjective Remarks Follow-up for TBI, subdural hematoma, fall due to alcoholism. Patient still has significant expressive dysphasia. He denies any acute concerns. No fever, chills. Objective Vitals Vital Signs Date Time Temp Pulse Resp B/P (MAP) Pulse Ox O2 Delivery O2 Flow Rate FiO2 08/19/17 12:00 97.9 90 21 119/80 (93) 95 08/19/17 12:00 90 08/19/17 08:00 88 08/19/17 08:00 98.3 88 24 126/68 (87) 98 08/19/17 07:58 98 Nasal Cannula 1.00 08/19/17 07:00 98 Nasal Cannula 1.00 08/19/17 04:00 98 08/19/17 04:00 98.6 97 15 123/79 (94) 98 08/19/17 00:00 98 08/19/17 00:00 98.6 97 15 123/79 (94) 98 08/18/17 21:55 96 Nasal Cannula 3.00 08/18/17 20:00 98.2 90 18 129/75 (93) 96 08/18/17 20:00 77 08/18/17 19:00 92 Nasal Cannula 3.00 08/18/17 16:00 86 08/18/17 16:00 98.1 86 16 107/64 (78) 97 I/O 08/18/17 08/18/17 08/18/17 08/19/17 08/19/17 08/19/17 07:00 15:00 23:00 07:00 15:00 23:00 Intake Total 500 ml 720 ml 200 ml Output Total 400 ml 500 ml Balance 500 ml 320 ml -300 ml Intake Oral 500 ml 720 ml 200 ml Output Urine Total 400 ml 500 ml # Voids 4 3 # Bowel Movements 0 2 3 Result Diagram: 08/18/17 0423 08/16/17 1549 Imaging Last Impressions Chest X-Ray 08/15/17 0000 Signed Impressions: Service Date/Time: Tuesday, August 15, 2017 15:14 - CONCLUSION: 1. Improved bibasilar airspace disease. Galdino Thakur MD Head CT 08/09/17 0000 Signed Impressions: Service Date/Time: Wednesday, August 09, 2017 09:36 - CONCLUSION: 1. No significant interval change. 2. Stable parenchymal hemorrhage in the anterior left temporal lobe. 3. Stable extra-axial, likely subdural, hemorrhage in the anterior temporal and right posterior parieto-occipital mid to high convexities. 4. Stable subtle intraventricular blood products. 5. No intercurrent new hemorrhage, hydrocephalus, or herniation. Galdino Thakur MD Objective Remarks GENERAL: Alert, NAD. Expressive dysphasia. SKIN: Warm and dry. HEAD: Normocephalic. EYES: No scleral icterus. No injection or drainage. NECK: Supple, trachea midline. No JVD or lymphadenopathy. CARDIOVASCULAR: Regular rate and rhythm without murmurs, gallops, or rubs. RESPIRATORY: Breath sounds equal bilaterally. No accessory muscle use. GASTROINTESTINAL: Abdomen soft, non-tender, nondistended. MUSCULOSKELETAL: No cyanosis, or edema. Neurological: Moves all extremities. No focal deficits appreciated. BACK: Nontender without obvious deformity. No CVA tenderness. A/P Problem List: (1) SDH (subdural hematoma) ICD Code: I62.00 - Nontraumatic subdural hemorrhage, unspecified Status: Acute (2) Subarachnoid hemorrhage ICD Code: I60.9 - Nontraumatic subarachnoid hemorrhage, unspecified Status: Acute (3) Alcohol intoxication ICD Code: F10.929 - Alcohol use, unspecified with intoxication, unspecified Status: Acute Assessment and Plan This a 66-year-old male who was admitted to the hospital on 08/07 after a fall at a bar that resulted in subdural hematoma and bitemporal small bleeds. Dr. Duque (neurosurgery) has seen and evaluated the patient. Nonoperative treatment. On 08/08 CT showed new left temporal intraparenchymal hemorrhage. Repeat/follow up CT on 08/09 is stable. - Subdural hematoma - Intraparenchymal hemorrhage - No Chemical DVT prophylaxis. - Keppra for seizure prophylaxis. - PT/ OT. Request to work with the patient 7 days a week. - restraints have been discontinued. Alcohol intoxication/ Lethargy/ Encephalopathy - Thiamine, Folic acid PO. - Continue lactulose, titrate to 3-4 BMs daily. - neurology consulted. EEG shows moderate encephalopathy. Thrombocytopenia - Likely related to chronic alcohol abuse. The patient received transfusion on 08/08. - Plt 67K on 08/18/2017. Aspiration pneumonia - CXR with improvement. Blood cultures negative to date. - Received Levaquin and Flagyl. D/C 08/14. COPD - O2, DuoNeb PRN. Diabetes mellitus - Blood glucose well controlled. Goal 140-180 while in-patient. Hep C - outpatient follow up. Full code. SCDs. Problem Qualifiers (1) Alcohol intoxication: Qualified Codes: F10.929 - Alcohol use, unspecified with intoxication, unspecified Jordyn Moreno DO Aug 19, 2017 3:36 pm
[2017-08-19] MEDS: ACETAMINOPHEN 325 MG TAB PO PRN (16:06)
[2017-08-19] MEDS: HALOPERIDOL LACTATE 5 MG/ML AMP IM PRN (19:29)
[2017-08-20] VITALS (8 sets, daily range): BP systolic 106–143; BP diastolic 55–89; PULSE 68–101; RESP 17–21; TEMP 97.3–98.4; O2SAT 92–94
[2017-08-20] MEDS: CHLORHEXIDINE GLUCONATE 2 % 1 PACK (2 CLOTHS) TOP SCH (00:38)
[2017-08-20] MEDS: INSULIN ASPART SUPPLEMENTAL SCALE SQ SCH ×4 (05:26→17:14)
[2017-08-20] MEDS: LACTULOSE SYRUP 20 GM/30 ML CUP PO SCH ×4 (08:49→20:37)
[2017-08-20] MEDS: FOLIC ACID 1 MG TAB PO SCH (08:50)
[2017-08-20] MEDS: FAMOTIDINE 20 MG TAB PO SCH ×2 (08:50→20:37)
[2017-08-20] MEDS: DOCUSATE SODIUM 50 MG/SENNA 8.6 MG TAB PO SCH ×2 (08:50→20:37)
[2017-08-20] MEDS: THIAMINE HCL 100 MG TAB PO SCH (08:51)
[2017-08-20] MEDS: SODIUM CHLORIDE 0.9% FLUSH 10 ML FLUSH IV FLUSH SCH ×2 (09:00→20:38)
[2017-08-20] MEDS: LACTIC ACID (AMMONIUM LACTATE) 12% LOTION 225 GM BTL TOPICAL SCH ×2 (09:07→20:38)
[2017-08-20] MEDS ORDERED: QUEtiapine FUMARATE 25 MG TAB PO ONE (11:30)
--- NOTE | 2017-08-20 12:34 | HHI.PR ---
Subjective Remarks Follow-up for TBI, subdural hematoma, fall due to alcoholism. Patient is currently doing well. Denies any acute concerns. He continues to have expressive dysphasia. Last night, however, he became agitated and required restraints. Objective Vitals Vital Signs Date Time Temp Pulse Resp B/P (MAP) Pulse Ox O2 Delivery O2 Flow Rate FiO2 08/20/17 11:51 97.3 82 17 118/66 (83) 93 08/20/17 10:25 68 08/20/17 09:02 Room Air 08/20/17 08:47 97.6 82 17 124/61 (82) 93 08/20/17 05:45 98.1 82 21 114/55 (74) 93 08/20/17 00:00 98.4 101 19 125/89 (101) 94 08/19/17 21:55 Room Air 08/19/17 20:45 98.9 102 20 132/82 (99) 94 08/19/17 18:00 95 Nasal Cannula 1.00 08/19/17 16:00 97.6 100 18 113/75 (88) 95 08/19/17 12:50 Nasal Cannula 1.00 I/O 08/19/17 08/19/17 08/19/17 08/20/17 08/20/17 08/20/17 07:00 15:00 23:00 07:00 15:00 23:00 Intake Total 200 ml 0 ml 0 ml Output Total 500 ml 600 ml 100 ml Balance -300 ml -600 ml -100 ml Intake Oral 200 ml 0 ml 0 ml Output Urine Total 500 ml 600 ml 100 ml # Voids 1 1 # Bowel Movements 3 1 0 0 Result Diagram: 08/18/17 0423 08/16/17 1549 Imaging Last Impressions Chest X-Ray 08/15/17 0000 Signed Impressions: Service Date/Time: Tuesday, August 15, 2017 15:14 - CONCLUSION: 1. Improved bibasilar airspace disease. Galdino Thakur MD Head CT 08/09/17 0000 Signed Impressions: Service Date/Time: Wednesday, August 09, 2017 09:36 - CONCLUSION: 1. No significant interval change. 2. Stable parenchymal hemorrhage in the anterior left temporal lobe. 3. Stable extra-axial, likely subdural, hemorrhage in the anterior temporal and right posterior parieto-occipital mid to high convexities. 4. Stable subtle intraventricular blood products. 5. No intercurrent new hemorrhage, hydrocephalus, or herniation. Galdino Thakur MD Objective Remarks GENERAL: Alert, NAD. Expressive dysphasia. SKIN: Warm and dry. HEAD: Normocephalic. EYES: No scleral icterus. No injection or drainage. NECK: Supple, trachea midline. No JVD or lymphadenopathy. CARDIOVASCULAR: Regular rate and rhythm without murmurs, gallops, or rubs. RESPIRATORY: Breath sounds equal bilaterally. No accessory muscle use. GASTROINTESTINAL: Abdomen soft, non-tender, nondistended. MUSCULOSKELETAL: No cyanosis, or edema. Neurological: Moves all extremities. No focal deficits appreciated. BACK: Nontender without obvious deformity. No CVA tenderness. Procedures None. A/P Problem List: (1) SDH (subdural hematoma) ICD Code: I62.00 - Nontraumatic subdural hemorrhage, unspecified Status: Acute (2) Subarachnoid hemorrhage ICD Code: I60.9 - Nontraumatic subarachnoid hemorrhage, unspecified Status: Acute (3) Alcohol intoxication ICD Code: F10.929 - Alcohol use, unspecified with intoxication, unspecified Status: Acute Assessment and Plan This a 66-year-old male who was admitted to the hospital on 08/07 after a fall at a bar that resulted in subdural hematoma and bitemporal small bleeds. Dr. Duque (neurosurgery) has seen and evaluated the patient. Nonoperative treatment. On 08/08 CT showed new left temporal intraparenchymal hemorrhage. Repeat/follow up CT on 08/09 is stable. - Subdural hematoma - Intraparenchymal hemorrhage - No Chemical DVT prophylaxis. - Keppra for seizure prophylaxis. - PT/ OT. Request to work with the patient 7 days a week. - Acute psychosis - mostly at night. - Patient received haldol. - Patient has a history of bipolar disorder per his step daughter. - Will start patient on Seroquel 25 mg twice a day. Wean off restraints. Alcohol intoxication/ Lethargy/ Encephalopathy - Thiamine, Folic acid PO. - Continue lactulose, titrate to 3-4 BMs daily. - neurology consulted. EEG shows moderate encephalopathy. Thrombocytopenia - Likely related to chronic alcohol abuse. The patient received transfusion on 08/08. - Plt 67K on 08/18/2017. Aspiration pneumonia - CXR with improvement. Blood cultures negative to date. - Received Levaquin and Flagyl. D/C 08/14. COPD - O2, DuoNeb PRN. Diabetes mellitus - Blood glucose well controlled. Goal 140-180 while in-patient. Hep C - outpatient follow up. Full code. SCDs. Discussed with case management. We'll try to discharge patient to SNF on 2016 if accepted. Problem Qualifiers (1) Alcohol intoxication: Qualified Codes: F10.929 - Alcohol use, unspecified with intoxication, unspecified Jordyn Moreno DO Aug 20, 2017 12:34 pm
[2017-08-20] MEDS: QUEtiapine FUMARATE 25 MG TAB PO SCH (20:38)
[2017-08-21] VITALS (7 sets, daily range): BP systolic 104–132; BP diastolic 58–87; PULSE 73–98; RESP 17–20; TEMP 96.3–98.4; O2SAT 93–97
[2017-08-21] MEDS: CHLORHEXIDINE GLUCONATE 2 % 1 PACK (2 CLOTHS) TOP SCH (04:00)
[2017-08-21] MEDS: INSULIN ASPART SUPPLEMENTAL SCALE SQ SCH ×4 (05:59→17:09)
[2017-08-21] MEDS: LACTULOSE SYRUP 20 GM/30 ML CUP PO SCH ×4 (08:39→22:10)
[2017-08-21] MEDS: DOCUSATE SODIUM 50 MG/SENNA 8.6 MG TAB PO SCH ×2 (08:40→22:11)
[2017-08-21] MEDS: THIAMINE HCL 100 MG TAB PO SCH (08:40)
[2017-08-21] MEDS: FAMOTIDINE 20 MG TAB PO SCH ×2 (08:40→22:11)
[2017-08-21] MEDS: FOLIC ACID 1 MG TAB PO SCH (08:40)
[2017-08-21] MEDS: QUEtiapine FUMARATE 25 MG TAB PO SCH ×2 (08:41→22:11)
[2017-08-21] MEDS: SODIUM CHLORIDE 0.9% FLUSH 10 ML FLUSH IV FLUSH SCH ×2 (08:42→22:11)
[2017-08-21] MEDS: LACTIC ACID (AMMONIUM LACTATE) 12% LOTION 225 GM BTL TOPICAL SCH ×2 (08:42→22:13)
--- NOTE | 2017-08-21 14:23 | HHI.PR ---
Subjective Remarks Follow-up for TBI, subdural hematoma, fall due to alcoholism. Patient is doing well after starting Seroquel. No acute concerns. Does not talk much. Objective Vitals Vital Signs Date Time Temp Pulse Resp B/P (MAP) Pulse Ox O2 Delivery O2 Flow Rate FiO2 08/21/17 12:24 96.3 80 18 104/69 (81) 94 08/21/17 07:40 98.4 73 18 111/58 (75) 94 08/21/17 05:05 97.7 84 17 132/86 (101) 97 08/21/17 04:35 79 08/21/17 00:13 98.3 98 18 127/87 (100) 96 08/20/17 21:00 92 21 08/20/17 20:23 97.4 98 17 106/74 (85) 94 08/20/17 20:00 Room Air 08/20/17 16:28 97.8 80 17 143/65 (91) 93 I/O 08/20/17 08/20/17 08/20/17 08/21/17 08/21/17 08/21/17 07:00 15:00 23:00 07:00 15:00 23:00 Intake Total 0 ml 240 ml 240 ml Output Total 100 ml 900 ml Balance -100 ml 240 ml -660 ml Intake Oral 0 ml 240 ml 240 ml Output Urine Total 100 ml 900 ml # Voids 1 1 2 # Bowel Movements 0 Result Diagram: 08/18/17 0423 Imaging Last Impressions Chest X-Ray 08/15/17 0000 Signed Impressions: Service Date/Time: Tuesday, August 15, 2017 15:14 - CONCLUSION: 1. Improved bibasilar airspace disease. Galdino Thakur MD Head CT 08/09/17 0000 Signed Impressions: Service Date/Time: Wednesday, August 09, 2017 09:36 - CONCLUSION: 1. No significant interval change. 2. Stable parenchymal hemorrhage in the anterior left temporal lobe. 3. Stable extra-axial, likely subdural, hemorrhage in the anterior temporal and right posterior parieto-occipital mid to high convexities. 4. Stable subtle intraventricular blood products. 5. No intercurrent new hemorrhage, hydrocephalus, or herniation. Galdino Thakur MD Objective Remarks GENERAL: Alert, NAD. Expressive dysphasia. SKIN: Warm and dry. HEAD: Normocephalic. EYES: No scleral icterus. No injection or drainage. NECK: Supple, trachea midline. No JVD or lymphadenopathy. CARDIOVASCULAR: Regular rate and rhythm without murmurs, gallops, or rubs. RESPIRATORY: Breath sounds equal bilaterally. No accessory muscle use. GASTROINTESTINAL: Abdomen soft, non-tender, nondistended. MUSCULOSKELETAL: No cyanosis, or edema. Neurological: Moves all extremities. No focal deficits appreciated. BACK: Nontender without obvious deformity. No CVA tenderness. Procedures None. A/P Problem List: (1) SDH (subdural hematoma) ICD Code: I62.00 - Nontraumatic subdural hemorrhage, unspecified Status: Acute (2) Subarachnoid hemorrhage ICD Code: I60.9 - Nontraumatic subarachnoid hemorrhage, unspecified Status: Acute (3) Alcohol intoxication ICD Code: F10.929 - Alcohol use, unspecified with intoxication, unspecified Status: Acute Assessment and Plan This a 66-year-old male who was admitted to the hospital on 08/07 after a fall at a bar that resulted in subdural hematoma and bitemporal small bleeds. Dr. Duque (neurosurgery) has seen and evaluated the patient. Nonoperative treatment. On 08/08 CT showed new left temporal intraparenchymal hemorrhage. Repeat/follow up CT on 08/09 is stable. - Subdural hematoma - Intraparenchymal hemorrhage - No Chemical DVT prophylaxis. - Keppra for seizure prophylaxis. - PT/ OT. Request to work with the patient 7 days a week. - Acute psychosis - mostly at night. - Patient received haldol. - Patient has a history of bipolar disorder per his step daughter. - Continue Seroquel 25 mg twice a day. Patient has been off restraints since 08/20/2017. Alcohol intoxication/ Lethargy/ Encephalopathy - Thiamine, Folic acid PO. - Continue lactulose, titrate to 3-4 BMs daily. - neurology consulted. EEG shows moderate encephalopathy. Thrombocytopenia - Likely related to chronic alcohol abuse. The patient received transfusion on 08/08. - Plt 67K on 08/18/2017. Aspiration pneumonia - CXR with improvement. Blood cultures negative to date. - Received Levaquin and Flagyl. D/C 08/14. COPD - O2, DuoNeb PRN. Diabetes mellitus - Blood glucose well controlled. Goal 140-180 while in-patient. Hep C - outpatient follow up. Full code. SCDs. Discussed with case management. Pending placement. Problem Qualifiers (1) Alcohol intoxication: Qualified Codes: F10.929 - Alcohol use, unspecified with intoxication, unspecified Jordyn Moreno DO Aug 21, 2017 2:23 pm
[2017-08-21] MEDS ORDERED: SERO25TA PO (15:11)
[2017-08-21] MEDS ORDERED: FOLI1TAB6 PO (15:11)
[2017-08-21] MEDS: ACETAMINOPHEN 325 MG TAB PO PRN (15:47)
[2017-08-21] MEDS: HALOPERIDOL LACTATE 5 MG/ML AMP IM PRN ×2 (19:00→22:11)
[2017-08-22 00:22] VITALS: BP 105/61; PULSE 80; RESP 20; TEMP 99.3; O2SAT 94
[2017-08-22] MEDS: CHLORHEXIDINE GLUCONATE 2 % 1 PACK (2 CLOTHS) TOP SCH (04:00)
[2017-08-22 04:24] VITALS: BP_SYST 94; BP_SYST 97; BP_DIAS 50; BP_DIAS 58; PULSE 84; RESP 18; TEMP 97.7; O2SAT 93
[2017-08-22] MEDS: INSULIN ASPART SUPPLEMENTAL SCALE SQ SCH ×3 (06:00→11:52)
[2017-08-22] MEDS: THIAMINE HCL 100 MG TAB PO SCH (08:13)
[2017-08-22] MEDS: FAMOTIDINE 20 MG TAB PO SCH (08:13)
[2017-08-22] MEDS: QUEtiapine FUMARATE 25 MG TAB PO SCH (08:13)
[2017-08-22] MEDS: LACTULOSE SYRUP 20 GM/30 ML CUP PO SCH ×2 (08:13→13:06)
[2017-08-22] MEDS: FOLIC ACID 1 MG TAB PO SCH (08:14)
[2017-08-22] MEDS: SODIUM CHLORIDE 0.9% FLUSH 10 ML FLUSH IV FLUSH SCH (08:14)
[2017-08-22] MEDS: DOCUSATE SODIUM 50 MG/SENNA 8.6 MG TAB PO SCH (08:14)
[2017-08-22] MEDS: LACTIC ACID (AMMONIUM LACTATE) 12% LOTION 225 GM BTL TOPICAL SCH (08:15)
[2017-08-22 08:31] VITALS: BP 109/72; PULSE 81; RESP 18; TEMP 97.6; O2SAT 94
[2017-08-22 11:42] VITALS: BP 114/72; PULSE 87; RESP 20; TEMP 98.2; O2SAT 93
--- NOTE | 2017-08-22 12:16 | HHI.PR ---
Subjective Remarks Follow-up for TBI, subdural hematoma, fall due to alcoholism. Patient does not talk much. However he denies any acute concerns. Afebrile. Objective Vitals Vital Signs Date Time Temp Pulse Resp B/P (MAP) Pulse Ox O2 Delivery O2 Flow Rate FiO2 08/22/17 11:42 98.2 87 20 114/72 (86) 93 08/22/17 08:31 97.6 81 18 109/72 (84) 94 08/22/17 04:24 97.7 84 18 97/58 (71) 93 94/50 (65) 08/22/17 00:22 99.3 80 20 105/61 (76) 94 08/21/17 20:00 98.4 88 18 108/71 (83) 93 08/21/17 15:30 97.5 84 20 112/69 (83) 95 08/21/17 12:24 96.3 80 18 104/69 (81) 94 I/O 08/21/17 08/21/17 08/21/17 08/22/17 08/22/17 08/22/17 07:00 15:00 23:00 07:00 15:00 23:00 Intake Total 240 ml 720 ml Output Total 900 ml Balance -660 ml 720 ml Intake Oral 240 ml 720 ml Output Urine Total 900 ml # Voids 2 # Bowel Movements 1 Result Diagram: 08/18/17 0423 Imaging Last Impressions Chest X-Ray 08/15/17 0000 Signed Impressions: Service Date/Time: Tuesday, August 15, 2017 15:14 - CONCLUSION: 1. Improved bibasilar airspace disease. Galdino Thakur MD Head CT 08/09/17 0000 Signed Impressions: Service Date/Time: Wednesday, August 09, 2017 09:36 - CONCLUSION: 1. No significant interval change. 2. Stable parenchymal hemorrhage in the anterior left temporal lobe. 3. Stable extra-axial, likely subdural, hemorrhage in the anterior temporal and right posterior parieto-occipital mid to high convexities. 4. Stable subtle intraventricular blood products. 5. No intercurrent new hemorrhage, hydrocephalus, or herniation. Galdino Thakur MD Objective Remarks GENERAL: Alert, NAD. Expressive dysphasia. SKIN: Warm and dry. HEAD: Normocephalic. EYES: No scleral icterus. No injection or drainage. NECK: Supple, trachea midline. No JVD or lymphadenopathy. CARDIOVASCULAR: Regular rate and rhythm without murmurs, gallops, or rubs. RESPIRATORY: Breath sounds equal bilaterally. No accessory muscle use. GASTROINTESTINAL: Abdomen soft, non-tender, nondistended. MUSCULOSKELETAL: No cyanosis, or edema. Neurological: Moves all extremities. No focal deficits appreciated. BACK: Nontender without obvious deformity. No CVA tenderness. Procedures None. A/P Problem List: (1) SDH (subdural hematoma) ICD Code: I62.00 - Nontraumatic subdural hemorrhage, unspecified Status: Acute (2) Subarachnoid hemorrhage ICD Code: I60.9 - Nontraumatic subarachnoid hemorrhage, unspecified Status: Acute (3) Alcohol intoxication ICD Code: F10.929 - Alcohol use, unspecified with intoxication, unspecified Status: Acute Assessment and Plan This a 66-year-old male who was admitted to the hospital on 08/07 after a fall at a bar that resulted in subdural hematoma and bitemporal small bleeds. Dr. Duque (neurosurgery) has seen and evaluated the patient. Nonoperative treatment. On 08/08 CT showed new left temporal intraparenchymal hemorrhage. Repeat/follow up CT on 08/09 is stable. - Subdural hematoma - Intraparenchymal hemorrhage - No Chemical DVT prophylaxis. - Keppra for seizure prophylaxis. - PT/ OT. Request to work with the patient 7 days a week. - Acute psychosis - mostly at night. - Patient received haldol. - Patient has a history of bipolar disorder per his step daughter. - Continue Seroquel 25 mg twice a day. Patient has been off restraints since 08/20/2017. Alcohol intoxication/ Lethargy/ Encephalopathy - Thiamine, Folic acid PO. - Continue lactulose, titrate to 3-4 BMs daily. - neurology consulted. EEG shows moderate encephalopathy. Thrombocytopenia - Likely related to chronic alcohol abuse. The patient received transfusion on 08/08. - Plt 67K on 08/18/2017. Aspiration pneumonia - CXR with improvement. Blood cultures negative to date. - Received Levaquin and Flagyl. D/C 08/14. COPD - O2, DuoNeb PRN. Diabetes mellitus - Blood glucose well controlled. Goal 140-180 while in-patient. Hep C - outpatient follow up. Full code. SCDs. Discharge plan: Discharge to SNF when placement is arranged. Problem Qualifiers (1) Alcohol intoxication: Qualified Codes: F10.929 - Alcohol use, unspecified with intoxication, unspecified Jordyn Morneo DO Aug 22, 2017 12:16 pm
--- NOTE | 2017-08-23 08:16 | HHI.DS ---
Discharge Summary Admission Date Aug 07, 2017 at 6:28 am Discharge Date: Aug 23, 2017 Admitting Diagnosis SDH, acute alcohol intoxication/chronic alcohol abuse (1) SDH (subdural hematoma) ICD Code: I62.00 - Nontraumatic subdural hemorrhage, unspecified Status: Acute (2) Subarachnoid hemorrhage ICD Code: I60.9 - Nontraumatic subarachnoid hemorrhage, unspecified Status: Acute (3) Alcohol intoxication ICD Code: F10.929 - Alcohol use, unspecified with intoxication, unspecified Status: Acute Procedures None. Brief History - From Admission HPI 66-year-old male who was brought to the ER by [facility] after passing out at a local bar. There was limited history available in view of altered mental status. Patient was found to have subdural hematoma and bitemporal small bleeds /contusions. Dr. Duque from neurosurgery was contacted by ER physician and requested patient be admitted by critical care medicine service to the ICU with consulted for neurosurgery. Patient was accepted for admission by critical care medicine service. Patient did have an elevated EtOH level. When I evaluated the patient in the ER he was drowsy, easily arousable, new he was at the hospital however otherwise was confused and disoriented. He could not tell me how he was brought to the hospital. History was obtained by reviewing records and discussion with ER physician and nursing staff. 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) Hypertension: No Immune Disorder: No Implanted Vascular Access Dvce: No Musculoskeletal: No Neurologic: No Psychiatric: No Reproductive: No Respiratory: No Immunizations Current: Yes Migraines: No Myocardial Infarction: Yes Pneumonia: Yes Radiation Therapy: No Seizures: No Sickle Cell Disease: No Sleep Apnea: No Thyroid Disease: No Ulcer: No Tetanus Vaccination: < 5 Years Influenza Vaccination: Yes Past Surgical History Abdominal Surgery: No AICD: No Arteriovenous Shunt: No Cardiac Surgery: No Ear Surgery: No Endocrine Surgery: No Eye Surgery: No Genitourinary Surgery: Yes (Vasectomy) Gynecologic Surgery: No Insulin Pump: No Joint Replacement: No Neurologic Surgery: No Oral Surgery: Yes (TONSILLECTOMY) Pacemaker: No Thoracic Surgery: No Tonsillectomy: Yes Other Surgery: Yes (VASECTOMY AND CIRCUMSISION) Social History Alcohol Use: Yes (ALCOHOLIC PER FAMILY) Tobacco Use: Yes (2ppd) Substance Use: Yes (HX OF ALCOHOLISM) Allergies-Medications Allergies-Medications (Allergen,Severity, Reaction): Coded Allergies: Sulfa (Sulfonamide Antibiotics) (Unverified Allergy, Severe, UNKNOWN - CHILD, 08/07/17) Reported Meds & Prescriptions Reported Meds & Active Scripts Active Oxygen (O2) Device 2 Liter LIZA.CANULA CONTINUOUS Oxygen Concentrator Portable Gaseous 2 L/min via Nasal Canula Continuous For 99 months Gnp Vitamin B-1 (Thiamine HCl) 100 Mg Tab 100 Mg PO DAILY Chlordiazepoxide HCl 25 Mg Capsule 25 Mg PO BID Take 1 pill twice a day for 2 days then 1 pill daily for 3 days. Do not combine with alcohol. Reported Lortab (Hydrocodone-Acetaminophen) 5-325 Mg Tab 1 Tab PO Q4H PRN Potassium Chloride ER (Potassium Chloride) 10 Meq Cap 10 Meq PO BID Lantus Inj (Insulin Glargine) 1,000 Unit/10 Ml Vial 1 Units SQ HS Glucophage XR (Metformin HCl) 500 Mg Genet 500 Mg PO BID With evening meal ROS Review of Systems ROS Limitations: Intoxication, encephalopathy Imaging Last Impressions Chest X-Ray 08/15/17 0000 Signed Impressions: Service Date/Time: Tuesday, August 15, 2017 15:14 - CONCLUSION: 1. Improved bibasilar airspace disease. Galdino Thakur MD Head CT 08/09/17 0000 Signed Impressions: Service Date/Time: Wednesday, August 09, 2017 09:36 - CONCLUSION: 1. No significant interval change. 2. Stable parenchymal hemorrhage in the anterior left temporal lobe. 3. Stable extra-axial, likely subdural, hemorrhage in the anterior temporal and right posterior parieto-occipital mid to high convexities. 4. Stable subtle intraventricular blood products. 5. No intercurrent new hemorrhage, hydrocephalus, or herniation. Galdino Thakur MD PE at Discharge GENERAL: Alert, NAD. Expressive dysphasia. SKIN: Warm and dry. HEAD: Normocephalic. EYES: No scleral icterus. No injection or drainage. NECK: Supple, trachea midline. No JVD or lymphadenopathy. CARDIOVASCULAR: Regular rate and rhythm without murmurs, gallops, or rubs. RESPIRATORY: Breath sounds equal bilaterally. No accessory muscle use. GASTROINTESTINAL: Abdomen soft, non-tender, nondistended. MUSCULOSKELETAL: No cyanosis, or edema. Neurological: Moves all extremities. No focal deficits appreciated. BACK: Nontender without obvious deformity. No CVA tenderness. Pt update on day of discharge Patient does not speak much. Denies any acute concerns. Hospital Course This a 66-year-old male who was admitted to the hospital on 08/07 after a fall at a bar that resulted in subdural hematoma and bitemporal small bleeds. Dr. Duque (neurosurgery) has seen and evaluated the patient. Nonoperative treatment. On 08/08 CT showed new left temporal intraparenchymal hemorrhage. Repeat/follow up CT on 08/09 is stable. - Subdural hematoma - Intraparenchymal hemorrhage - No Chemical DVT prophylaxis. - Keppra for seizure prophylaxis. - PT/ OT. - Acute psychosis - mostly at night. - Patient received haldol. - Patient has a history of bipolar disorder per his step daughter. - Continue Seroquel 25 mg twice a day. Patient has been off restraints since 08/20/2017. Alcohol intoxication/ Lethargy/ Encephalopathy - Thiamine, Folic acid PO. - Continue lactulose, titrate to 3-4 BMs daily. - neurology consulted. EEG shows moderate encephalopathy. Thrombocytopenia - Likely related to chronic alcohol abuse. The patient received transfusion on 08/08. - Plt 67K on 08/18/2017. Aspiration pneumonia - CXR with improvement. Blood cultures negative to date. - Received Levaquin and Flagyl. D/C 08/14. COPD - O2, DuoNeb PRN. Diabetes mellitus - Blood glucose well controlled. Goal 140-180 while in-patient. Hep C - outpatient follow up. Pt Condition on Discharge: Good Discharge Disposition: Discharge to SNF Discharge Time: > 30 minutes Discharge Instructions DIET: Follow Instructions for: Diabetic Diet Activities you can perform: Regular-No Restrictions New Medications: Folic Acid (Folic Acid) 1 Mg Tablet 1 MG PO DAILY for vitamin, #30 TAB Quetiapine (Seroquel) 25 Mg Tab 25 MG PO BID for Agitation, #60 TAB Continued Medications: Insulin Glargine Inj (Lantus Inj) 1,000 Unit/10 Ml Vial 1 UNITS SQ HS for Blood Sugar Management, VIAL 0 Refills Metformin ER (Glucophage XR) 500 Mg Genet 500 MG PO BID for Blood Sugar Management, #30 TAB 0 Refills With evening meal Oxygen (O2) (Oxygen (O2)) Device 2 LITER LIZA.CANULA CONTINUOUS for Prevent Hypoxemia, #2 CYLINDER Oxygen Concentrator Portable Gaseous 2 L/min via Nasal Canula Continuous For 99 months Thiamine HCl (Gnp Vitamin B-1) 100 Mg Tab 100 MG PO DAILY for Alcohol Detox, #30 TAB Discontinued Medications: Chlordiazepoxide HCl (Chlordiazepoxide HCl) 25 Mg Capsule 25 MG PO BID for Alcohol Detox, #7 MG Take 1 pill twice a day for 2 days then 1 pill daily for 3 days. Do not combine with alcohol. Hydrocodone-Acetaminophen (Lortab) 5-325 Mg Tab 1 TAB PO Q4H PRN for PAIN, TAB 0 Refills Potassium Chloride ER (Potassium Chloride ER) 10 Meq Cap 10 MEQ PO BID for Electrolyte Replacement, #60 CAP 0 Refills Jordyn Moreno DO Aug 23, 2017 8:16 am
== END 2017-08-22 15:39 | DRG 82 ==
LOC: NEPE 03:35 → NEDA 06:28 → N03A 09:06 → N03B 08-15 03:48 → N05A 08-19 12:46 → N05B 08-19 18:15
PROVIDERS: ADMIT Hospitalist; ATTEND Hospitalist
PROC: 30233R1 Transfusion of Nonautologous Platelets into Peripheral Vein, Percutaneous Approach (ICD-10-PCS; principal; 2017-08-07)
DX: S06.5X9A Traumatic subdural hemorrhage with loss of consciousness of unspecified duration, initial encounter (principal); G93.40 Encephalopathy, unspecified; S06.6X9A Traumatic subarachnoid hemorrhage with loss of consciousness of unspecified duration, initial encounter; J69.0 Pneumonitis due to inhalation of food and vomit; F23 Brief psychotic disorder; R47.01 Aphasia; B19.20 Unspecified viral hepatitis C without hepatic coma; E11.9 Type 2 diabetes mellitus without complications; F10.220 Alcohol dependence with intoxication, uncomplicated; Y90.7 Blood alcohol level of 200-239 mg/100 ml; J44.9 Chronic obstructive pulmonary disease, unspecified; M19.90 Unspecified osteoarthritis, unspecified site; F17.210 Nicotine dependence, cigarettes, uncomplicated; E87.6 Hypokalemia; D69.59 Other secondary thrombocytopenia; W19.XXXA Unspecified fall, initial encounter; F31.9 Bipolar disorder, unspecified; Z78.1 Physical restraint status; Z91.81 History of falling; I25.2 Old myocardial infarction; Z79.4 Long term (current) use of insulin
CPT/HCPCS: 36430; 36600; 70450; 71010; 80048; 80053; 80307; 81001; 82140; 82805; 82948; 83605; 83735; 83880; 84100; 84439; 84443; 84480; 85007; 85025; 85027; 85610; 85730; 86850; 86900; 86901; 86920; 86922; 87040; 87641; 93005; 94640; 94664; 95819; J1630; J1815; J1956; J2060; J3411; J3480; J7040; P9035

== ENCOUNTER 2017-08-27 17:28 | Inpatient (IN) | payer OTHER, MEDICARE ==
[~2017-08-27] VITALS: Ht 170.2 cm; Wt 75.3 kg
[~2017-08-27 17:28] MED LIST changes: -CHLO25CA9 PO; +FOLI1TAB6 PO; -HYDR-3533 PO; -POTA10CA PO; +SERO25TA PO
[2017-08-27 18:00] VITALS: BP 133/75; PULSE 98; RESP 16; TEMP 98.5
--- NOTE | 2017-08-27 18:20 | PD ---
HPI Chief Complaint: Psychiatric Symptoms Time Seen by Provider: 18:01 Travel History International Travel<30 days: No Contact w/Intl Traveler<30days: No Traveled to known affect area: No History of Present Illness HPI 66-year-old male with PMH of Wernicke's Korsakoff syndrome, SAH, adjustment disorder, alcohol abuse presents to the ED under Blake act for psychiatric evaluation. According to Blake act paper work the patient was found with a pair of scissors and stated that he needed them to pull his teeth out. The patient hasn't been confused and continues to be verbally and physically aggressive towards staff. On presentation the patient is alert, confused. He denies suicidal ideation. He denies any somatic complaints. He is unable to provide any other meaningful history. 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) Hypertension: No Immune Disorder: No Implanted Vascular Access Dvce: No Musculoskeletal: No Neurologic: No Psychiatric: No Reproductive: No Respiratory: No Immunizations Current: Yes Migraines: No Myocardial Infarction: Yes Pneumonia: Yes Radiation Therapy: No Seizures: No Sickle Cell Disease: No Sleep Apnea: No Thyroid Disease: No Ulcer: No Past Surgical History Abdominal Surgery: No AICD: No Arteriovenous Shunt: No Cardiac Surgery: No Ear Surgery: No Endocrine Surgery: No Eye Surgery: No Genitourinary Surgery: Yes (Vasectomy) Gynecologic Surgery: No Insulin Pump: No Joint Replacement: No Neurologic Surgery: No Oral Surgery: Yes (TONSILLECTOMY) Pacemaker: No Thoracic Surgery: No Tonsillectomy: Yes Other Surgery: Yes (VASECTOMY AND CIRCUMSISION) Social History Alcohol Use: Yes Tobacco Use: Yes Substance Use: No Allergies-Medications (Allergen,Severity, Reaction): Coded Allergies: Sulfa (Sulfonamide Antibiotics) (Unverified Allergy, Severe, UNKNOWN - CHILD, 08/07/17) Reported Meds & Prescriptions Reported Meds & Active Scripts Active Folic Acid 1 Mg Tablet 1 Mg PO DAILY Seroquel (Quetiapine Fumarate) 25 Mg Tab 25 Mg PO BID Oxygen (O2) Device 2 Liter LIZA.CANULA CONTINUOUS Oxygen Concentrator Portable Gaseous 2 L/min via Nasal Canula Continuous For 99 months Gnp Vitamin B-1 (Thiamine HCl) 100 Mg Tab 100 Mg PO DAILY Reported Lantus Inj (Insulin Glargine) 1,000 Unit/10 Ml Vial 1 Units SQ HS Glucophage XR (Metformin HCl) 500 Mg Genet 500 Mg PO BID With evening meal Review of Systems Except as stated in HPI: all other systems reviewed are Neg Physical Exam Narrative GENERAL: Well-nourished, well-developed white male in no acute distress. PSYCHIATRIC: Tangential, difficult to redirect. SKIN: Focused skin assessment warm/dry. HEAD: Normocephalic. EYES: No scleral icterus. No injection or drainage. NECK: Supple, trachea midline. No JVD or lymphadenopathy. CARDIOVASCULAR: Regular rate and rhythm without murmurs, gallops, or rubs. RESPIRATORY: Breath sounds clear and equal bilaterally. No accessory muscle use. GASTROINTESTINAL: Abdomen soft, non-tender, nondistended. Active bowel sounds MUSCULOSKELETAL: No cyanosis, or edema. Noted to walk with a normal gait. BACK: Nontender without obvious deformity. No CVA tenderness. Data Data Last Documented VS Vital Signs Date Time Temp Pulse Resp B/P (MAP) Pulse Ox O2 Delivery O2 Flow Rate FiO2 08/27/17 18:00 98.5 98 16 133/75 (94) Orders Orders Complete Blood Count With Diff (08/27/17 18:02) Comprehensive Metabolic Panel (08/27/17 18:02) Psych Screen (08/27/17 18:02) Drug Screen, Random Urine (08/27/17 18:02) Vitamin B1 (Thiamine) (08/27/17 20:20) Labs Laboratory Tests Test 08/27/17 18:10 White Blood Count 5.7 TH/MM3 Red Blood Count 4.14 MIL/MM3 Hemoglobin 13.1 GM/DL Hematocrit 38.8 % Mean Corpuscular Volume 93.8 FL Mean Corpuscular Hemoglobin 31.7 PG Mean Corpuscular Hemoglobin Concent 33.8 % Red Cell Distribution Width 16.1 % Platelet Count 91 TH/MM3 Mean Platelet Volume 7.8 FL Neutrophils (%) (Auto) 74.1 % Lymphocytes (%) (Auto) 15.4 % Monocytes (%) (Auto) 7.5 % Eosinophils (%) (Auto) 1.8 % Basophils (%) (Auto) 1.2 % Neutrophils # (Auto) 4.3 TH/MM3 Lymphocytes # (Auto) 0.9 TH/MM3 Monocytes # (Auto) 0.4 TH/MM3 Eosinophils # (Auto) 0.1 TH/MM3 Basophils # (Auto) 0.1 TH/MM3 CBC Comment AUTO DIFF Differential Comment AUTO DIFF CONFIRMED Platelet Estimate LOW Platelet Morphology Comment NORMAL Blood Urea Nitrogen 13 MG/DL Creatinine 0.89 MG/DL Random Glucose 185 MG/DL Total Protein 7.7 GM/DL Albumin 3.5 GM/DL Calcium Level 8.6 MG/DL Alkaline Phosphatase 74 U/L Aspartate Amino Transf (AST/SGOT) 13 U/L Alanine Aminotransferase (ALT/SGPT) 15 U/L Total Bilirubin 0.3 MG/DL Sodium Level 135 MEQ/L Potassium Level 3.6 MEQ/L Chloride Level 102 MEQ/L Carbon Dioxide Level 27.7 MEQ/L Anion Gap 5 MEQ/L Estimat Glomerular Filtration Rate 85 ML/MIN MDM Medical Decision Making Medical Screen Exam Complete: Yes Emergency Medical Condition: Yes Differential Diagnosis Adjustment disorder versus anxiety versus bipolar versus depression versus dementia versus electrolyte disorder versus malingering versus mood disorder versus ODD versus psychosis versus PTSD versus schizophrenia versus schizoaffective disorder versus substance-induced mood disorder versus other Narrative Course 66-year-old male with PMH of Wernicke's Korsakoff syndrome, SAH, adjustment disorder, alcohol abuse presents to the ED under Blake act for psychiatric evaluation. According to Blake act paper work the patient was found with a pair of scissors and stated that he needed them to pull his teeth out. The patient hasn't been confused and continues to be verbally and physically aggressive towards staff. On presentation the patient is alert, confused. He denies suicidal ideation. He denies any somatic complaints. He is unable to provide any other meaningful history. Vitals reviewed. Physical exam is unremarkable. No concerning abnormalities of the CBC or CMP. Patient is medically clear for psychiatric evaluation. Carlie Gonzales Aug 27, 2017 18:20
[2017-08-27 18:38] LABS: AUTOMATED NEUTROPHIL # 4.3 TH/MM3 (1.8-7.7); BASOPHIL # 0.1 TH/MM3 (0-0.2); BASOPHIL % 1.2 % (0.0-2.0); EOSINOPHIL # 0.1 TH/MM3 (0-0.4); EOSINOPHIL % 1.8 % (0.0-4.0); HEMATOCRIT 38.8 % (39.0-51.0); LYMPH % 15.4 % (9.0-44.0); LYMPHOCYTE # 0.9 TH/MM3 (1.0-4.8); MEAN CELL VOLUME 93.8 FL (80.0-100.0); MEAN CORPUSCULAR HEMOGLOBIN 31.7 PG (27.0-34.0); MEAN CORPUSCULAR HGB CONC 33.8 % (32.0-36.0); MONO % 7.5 % (0.0-8.0); NEUT % 74.1 % (16.0-70.0); PLATELET COUNT 91 TH/MM3 (150-450); RED BLOOD COUNT 4.14 MIL/MM3 (4.50-5.90); RED CELL DISTRIBUTION WIDTH 16.1 % (11.6-17.2); WHITE BLOOD COUNT 5.7 TH/MM3 (4.0-11.0)
[2017-08-27 18:43] LABS: HEMO FLAGS AUTO DIFF
[2017-08-27 18:57] LABS: ANION GAP 5 MEQ/L (5-15); AST (GOT) 13 U/L (15-37); BICARBONATE 27.7 MEQ/L (21.0-32.0); BLOOD UREA NITROGEN 13 MG/DL (7-18); CHLORIDE 102 MEQ/L (98-107); GLOMERULAR FILTRATION RATE 85 ML/MIN (>89); POTASSIUM 3.6 MEQ/L (3.5-5.1); SODIUM (NA) 135 MEQ/L (136-145)
[2017-08-27 19:00] LABS: ALKALINE PHOSPHATASE 74 U/L (45-117); ALT (GPT) 15 U/L (12-78); TOTAL BILIRUBIN ADULT 0.3 MG/DL (0.2-1.0)
[2017-08-27 19:36] LABS: PLATELET ESTIMATE SMEAR LOW (NORMAL); PLATELET MORPHOLOGY NORMAL (NORMAL); SCAN/DIFF AUTO DIFF CONFIRMED
[2017-08-27 21:00] VITALS: BP 139/78; PULSE 89; RESP 17; TEMP 94.9; O2SAT 96
[2017-08-27] MEDS ORDERED: QUEtiapine FUMARATE 25 MG TAB PO ONE (21:30)
[2017-08-27] MEDS ORDERED: BENZTROPINE MESYLATE 2 MG/2 ML VIAL IM PRN (23:30)
[2017-08-27] MEDS ORDERED: diphenhydrAMINE HCL 50 MG/ML VIAL - HS PRN IM (23:30)
[2017-08-27] MEDS ORDERED: diphenhydrAMINE HCL 50 MG CAP PO PRN (23:30)
[2017-08-27] MEDS ORDERED: MAGNESIUM HYDROXIDE SUSP 30 ML CUP PO PRN (23:30)
[2017-08-27] MEDS ORDERED: traZODone HCL 50 MG TAB PO PRN (23:30)
[2017-08-27] MEDS ORDERED: LORazepam 2 MG/ML VIAL - age > 65 yrs IM PRN (23:30)
[2017-08-27] MEDS ORDERED: ACETAMINOPHEN 325 MG TAB PO PRN (23:30)
[2017-08-27] MEDS ORDERED: diphenhydrAMINE HCL 50 MG CAP - HS PRN PO (23:30)
[2017-08-27] MEDS ORDERED: diphenhydrAMINE HCL 50 MG/ML VIAL IM PRN (23:30)
[2017-08-27] MEDS ORDERED: LORazepam 0.5 MG TAB age > 65 yrs PO PRN (23:30)
[2017-08-27] MEDS ORDERED: ALUMINUM/MAGNESIUM/SIMETH 30 ML CUP PO PRN (23:30)
[2017-08-27] MEDS ORDERED: BENZTROPINE MESYLATE 1 MG TAB PO PRN (23:30)
[2017-08-27] MEDS ORDERED: hydrOXYzine HCL 50 MG TAB PO PRN (23:30)
[2017-08-28 00:35] VITALS: BP 118/68; PULSE 80; RESP 18; TEMP 97.3; O2SAT 97
[2017-08-28 05:31] VITALS: BP 91/55; PULSE 85; RESP 17; TEMP 98.8; O2SAT 97
[2017-08-28] MEDS: FOLIC ACID 1 MG TAB PO SCH (09:00)
[2017-08-28] MEDS: NICOTINE 21 MG/24 HR PATCH T-DERMAL SCH (09:00)
[2017-08-28] MEDS: metFORMIN HCL 500 MG TAB PO SCH ×2 (09:00→21:02)
[2017-08-28] MEDS: THIAMINE HCL 100 MG TAB PO SCH (09:00)
--- NOTE | 2017-08-28 14:12 | HHI.HP ---
Provisional Diagnosis Admission Date Aug 27, 2017 at 23:15 Logan I. Related to different disease FiO2 0.81, alcohol abuse, somatic brain injury Certification of Person's Competence To Provide Express and Informed Consent I have personally examined Nhan Valentine , a person being served at [facility] on, Aug 28, 2017 13:58. Express and informed consent means consent voluntarily given in writing, by a competent person, after sufficient explanation and disclosure of the subject matter involved to enable the person to make a knowing and willful decision without any element of force, fraud, deceit, duress, or other form of constraint or coercion. This person is 18 years of age or older, is not now known to be incompetent to consent to treatment with a guardian advocate, and does not have a health care surrogate or proxy currently making medical treatment decisions. I have found this person to be one of the following: [] Competent to provide express and informed consent, as defined above, for voluntary admission to this facility and is competent to provide express and informed consent for treatment. He/she has the consistent capacity to make well reasoned, willful, and knowing decisions concerning his or her medical or mental health treatment. The person fully and consistently understands the purpose of the admission for examination/placement and is fully capable of personally exercising all rights [place]xxx] Incompetent to provide express and informed consent to voluntary admission , and this is incompetent to provide express and informed consent to treatment. The person must be transferred to involuntary status and a petition for a guardian advocate filed with the Circuit Court. [] Refusing to provide express and informed consent to voluntary admission but is competent to provide express and informed consent for treatment. The person must be discharged or transferred to involuntary status. Form shall be completed within 24 hours of a person's arrival at the receiving facility and filed in the clinical record of each person: 1. Admitted on a voluntary basis 2. Permitted to provide express and informed consent to his/her own treatment 3. Allowed to transfer from involuntary to voluntary status 4. Prior to permitting a person to consent to his or her own treatment after having been previously found incompetent to consent to treatment. History of Present Illness Capacity: Lacks Capacity Psych Chief Complaint: patient confused, wanting to cut teeth out with the scissors HPI Patient is a 66-year-old white male who comes here under Blake act signed by Andrew Kraus at 08/27/17 11:56 AM that document reviewed stating Wernicke -Korsakoff syndrome, subdural hematoma, subarachnoid hemorrhage, suicidal ideation, adjustment disorder with disturbances of mood, alcohol abuse with alcohol-induced mood disorder. Also states scissors were removed from patient' s body and he stated that he needed them to pull his teeth out with them. Patient has been and continues to be verbally and physically aggressive towards staff. Upon review of the EMR it appears the patient was hospitalized here through 08/22/17 the at that time was admitted with a blood alcohol level of 218 and also significant traumatic brain injury. He did recover to the point where he was discharged on 08/22/17 to [facility]. Patient was returned to the hospital with this visit. Urine toxicology drawn on this visit is negative. There is no alcohol level drawn. At the present time patient sitting quietly in his room on 2500. Patient seen the floor staff. He is alert somewhat short disheveled white male he is diffusely confused in all 4 spheres. Is just asking about his clothes and wanting to leave. He refuses to sit in the day room. He has refused his meals. There have been consultations already ordered for hospitalist, neurology D, and neurosurgery. I reviewed the medication reconciliation, will continue medications including Seroquel. We will need further observe the patient and await recommendations from the [facility] consultations Review of Systems ROS Limitations: Clinical Condition, Altered Mental Status Past Psych History Psychological trauma history Level of this time due to patient's cognitive disability Violence risk - others (6 mos) Unknown at this time due to patient's cognitive disability Violence risk - self (6 mos) Patient threatened to cut teeth up with the scissors Substance Abuse History Drugs/Alcohol past 12 months Long history of alcohol abuse also with a positive toxicology for cocaine in 2009 Past Family Social History Coded Allergies: Sulfa (Sulfonamide Antibiotics) (Unverified Allergy, Severe, UNKNOWN - CHILD, 08/07/17) Past Medical History Multiple complex please see MedSurg assessment Active Scripts Folic Acid (Folic Acid) 1 Mg Tablet, 1 MG PO DAILY for vitamin, #30 TAB Prov:Jordyn Moreno DO 08/21/17 Quetiapine (Seroquel) 25 Mg Tab, 25 MG PO BID for Agitation, #60 TAB Prov:Jordyn Moreno DO 08/21/17 Oxygen (O2) (Oxygen (O2)) Device, 2 LITER LIZA.CANULA CONTINUOUS for Prevent Hypoxemia, #2 CYLINDER Oxygen Concentrator Portable Gaseous 2 L/min via Nasal Canula Continuous For 99 months Prov:Andrez Broussard MD 04/08/17 Thiamine HCl (Gnp Vitamin B-1) 100 Mg Tab, 100 MG PO DAILY for Alcohol Detox, # 30 TAB Prov:Andrez Borussard MD 04/07/17 Reported Medications Insulin Glargine Inj (Lantus Inj) 1,000 Unit/10 Ml Vial, 1 UNITS SQ HS for Blood Sugar Management, VIAL 0 Refills 04/23/17 Metformin ER (Glucophage XR) 500 Mg Genet, 500 MG PO BID for Blood Sugar Management, #30 TAB 0 Refills With evening meal 04/02/17 Discontinued Reported Medications Hydrocodone-Acetaminophen (Lortab) 5-325 Mg Tab, 1 TAB PO Q4H Y for PAIN, TAB 0 Refills 04/23/17 Potassium Chloride ER (Potassium Chloride ER) 10 Meq Cap, 10 MEQ PO BID for Electrolyte Replacement, #60 CAP 0 Refills 04/23/17 Discontinued Scripts Chlordiazepoxide HCl (Chlordiazepoxide HCl) 25 Mg Capsule, 25 MG PO BID for Alcohol Detox, #7 MG Take 1 pill twice a day for 2 days then 1 pill daily for 3 days. Do not combine with alcohol. Prov:Andrez Broussard MD 04/07/17 Current Medications Medications (Trade) Dose Ordered Sig/Sameera Route Start Time Stop Time Status Last Admin (Ativan) 0.5 mg Q12H PRN PO 08/27/17 23:30 Future Hold (Ativan Inj) 0.5 mg Q12H PRN IM 08/27/17 23:30 Future Hold (Atarax) 50 mg Q6H PRN PO 08/27/17 23:30 Future Hold (Benadryl) 50 mg Q6H PRN PO 08/27/17 23:30 Future Hold (Benadryl Inj) 50 mg Q6H PRN IM 08/27/17 23:30 Future Hold (Cogentin) 1 mg Q12H PRN PO 08/27/17 23:30 (Cogentin Inj) 1 mg Q12H PRN IM 08/27/17 23:30 (Benadryl) 50 mg HS PRN PO 08/27/17 23:30 Future Hold (Benadryl Inj) 50 mg HS PRN IM 08/27/17 23:30 Future Hold (Desyrel) 50 mg HS PRN PO 08/27/17 23:30 Future Hold (Tylenol) 650 mg Q4H PRN PO 08/27/17 23:30 (Milk Of Magnesia Liq) 30 ml DAILY PRN PO 08/27/17 23:30 (Mag-Al Plus Susp Liq) 30 ml Q6H PRN PO 08/27/17 23:30 (Habitrol 21 Mg Patch.24 Hr) 1 patch DAILY T-DERMAL 08/28/17 09:00 Miscellaneous Information 1 HS T-DERMAL 08/28/17 21:00 (Glucophage) 500 mg BID PO 08/28/17 09:00 (Vitamin B1) 100 mg DAILY PO 08/28/17 09:00 (Folate) 1 mg DAILY PO 08/28/17 09:00 (Levemir Inj) 1 units HS SQ 08/28/17 21:00 Family Psych History Amount of this time due to patient's cognitive disability Social History Patient has been in [facility] Patient's Strengths (min. 2) Patient verbal able exercise health care Physical Exam Patient medically cleared in ED exam reviewed and agreed with. Patient sitting quietly in his room. He is in no acute distress. No wish to distress. No complaints of double pain. Patient moves all 4 extremities both difficulty Vital Signs Vital Signs Date Time Temp Pulse Resp B/P (MAP) Pulse Ox O2 Delivery O2 Flow Rate FiO2 08/28/17 05:31 98.8 85 17 91/55 (67) 97 08/27/17 21:00 Room Air Lab Results Test 08/27/17 18:10 08/27/17 21:15 White Blood Count 5.7 TH/MM3 Red Blood Count 4.14 MIL/MM3 Hemoglobin 13.1 GM/DL Hematocrit 38.8 % Mean Corpuscular Volume 93.8 FL Mean Corpuscular Hemoglobin 31.7 PG Mean Corpuscular Hemoglobin Concent 33.8 % Red Cell Distribution Width 16.1 % Platelet Count 91 TH/MM3 Mean Platelet Volume 7.8 FL Neutrophils (%) (Auto) 74.1 % Lymphocytes (%) (Auto) 15.4 % Monocytes (%) (Auto) 7.5 % Eosinophils (%) (Auto) 1.8 % Basophils (%) (Auto) 1.2 % Neutrophils # (Auto) 4.3 TH/MM3 Lymphocytes # (Auto) 0.9 TH/MM3 Monocytes # (Auto) 0.4 TH/MM3 Eosinophils # (Auto) 0.1 TH/MM3 Basophils # (Auto) 0.1 TH/MM3 CBC Comment AUTO DIFF Differential Comment AUTO DIFF CONFIRMED Platelet Estimate LOW Platelet Morphology Comment NORMAL Blood Urea Nitrogen 13 MG/DL Creatinine 0.89 MG/DL Random Glucose 185 MG/DL Total Protein 7.7 GM/DL Albumin 3.5 GM/DL Calcium Level 8.6 MG/DL Alkaline Phosphatase 74 U/L Aspartate Amino Transf (AST/SGOT) 13 U/L Alanine Aminotransferase (ALT/SGPT) 15 U/L Total Bilirubin 0.3 MG/DL Sodium Level 135 MEQ/L Potassium Level 3.6 MEQ/L Chloride Level 102 MEQ/L Carbon Dioxide Level 27.7 MEQ/L Anion Gap 5 MEQ/L Estimat Glomerular Filtration Rate 85 ML/MIN Urine Opiates Screen NEG Urine Barbiturates Screen NEG Urine Amphetamines Screen NEG Urine Benzodiazepines Screen NEG Urine Cocaine Screen NEG Urine Cannabinoids Screen NEG Mental Status Examination Appearance: Disheveled Consciousness: Alert Orientation: Person, Place ([facility] Date/Time (2014) Motor Activity: Normal gait Speech: Unremarkable Language: Adequate Fund of Knowledge: Adequate Attention and Concentration: Other (poor) Memory: Unremarkable (or) Mood: Irritable Affect: Other (decrease range and intensity) Thought Process & Associations: Loose associations Thought Content: Bizarre thinking, Delusional Delusion Type: Bizarre Suicidal Ideation: No Suicidal Plan: No Suicidal Intention: No Homicidal Ideation: No Homicidal Plan: No Homicidal Intention: No Insight: Poor Judgment: Poor Assessment & Plan Problem List: (1) DEMENTIA IN OTH DISEASES CLASSD ELSWHR W BEHAVIORAL DISTURB ICD Codes: F02.81 - DEMENTIA IN OTH DISEASES CLASSD ELSWHR W BEHAVIORAL DISTURB (2) Traumatic brain injury ICD Codes: S06.9X9A - Unspecified intracranial injury with loss of consciousness of unspecified duration, initial encounter (3) Alcohol abuse ICD Codes: F10.10 - Alcohol abuse, uncomplicated Assessment & Plan Estimated LOS: 7 at this time patient meets criteria for involuntary psychiatric hospitalization under the Blake act. I will do first opinion request second opinion. I also feel he doesn't have capacity , I will ask for healthcare surrogate and guardian advocate. Will continue medications per the med reconciliation. Will have appropriate consultations done. Will need to develop appropriate treatment, medications, and discharge plans for this gentleman Discharge Planning To be determined Request HC Surrog/Guard Advoc?: Yes Rakesh Frankel MD Aug 28, 2017 14:12
--- NOTE | 2017-08-28 14:45 | PD.CONS ---
HPI Service [facility] Hospitalists Consult Requested By Dr. Sethi Reason for Consult Medical management Primary Care Physician Chen Hamilton MD Diagnoses: History of Present Illness The patient is a 66-year-old male who happens to be a very poor historian. Patient initially did not want to talk to me but then later answered some of my questions. Per ER documentation, patient has a history of Wernicke-Korsakoff syndrome, SAH, adjustment disorder, alcohol abuse. Patient is admitted in the psychiatry [facility] under Blake act as Apparently, he was found with a pair of scissors and stating that he needed them to pull his teeth, in addition he was being physically aggressive towards staff. Hospital service was consulted for medical management. When asked about his medical history, patient states "I'm tired, I have a headache, I can't remember ". When asked if he has DM, he says "not right now". He only complains of a headache but when asked if he would take some tylenol, he talks to me about his clothes. Per RN, pt has refused all meds and breakfast and lunch thus far. Review of Systems ROS Limitations: Poor Historian Except as stated in HPI: all other systems reviewed are Neg Past Family Social History Allergies: Coded Allergies: Sulfa (Sulfonamide Antibiotics) (Unverified Allergy, Severe, UNKNOWN - CHILD, 08/07/17) Past Medical History Wernicke-Korsakoff syndrome, SAH, adjustment disorder, alcohol abuse. Past Surgical History states cannot remember Reported Medications Reported Meds & Active Scripts Active Folic Acid 1 Mg Tablet 1 Mg PO DAILY Seroquel (Quetiapine Fumarate) 25 Mg Tab 25 Mg PO BID Oxygen (O2) Device 2 Liter LIZA.CANULA CONTINUOUS Oxygen Concentrator Portable Gaseous 2 L/min via Nasal Canula Continuous For 99 months Gnp Vitamin B-1 (Thiamine HCl) 100 Mg Tab 100 Mg PO DAILY Reported Lantus Inj (Insulin Glargine) 1,000 Unit/10 Ml Vial 1 Units SQ HS Glucophage XR (Metformin HCl) 500 Mg Genet 500 Mg PO BID With evening meal Family History Cannot give me any history on his mom and dad Social History He states that he hasn't smoked for a while. States he only drinks beer however cannot tell me when was the last time he drank. Denies any illegal drug use Physical Exam Vital Signs Vital Signs Date Time Temp Pulse Resp B/P (MAP) Pulse Ox O2 Delivery O2 Flow Rate FiO2 08/28/17 05:31 98.8 85 17 91/55 (67) 97 08/28/17 00:35 97.3 80 18 118/68 (85) 97 08/28/17 00:01 08/27/17 21:00 94.9 89 17 139/78 (98) 96 Room Air 08/27/17 18:00 98.5 98 16 133/75 (94) Physical Exam GENERAL: Asleep, but arousable. Sitting in bed SKIN:Cool and dry. HEAD: Atraumatic. Normocephalic. EYES: Extraocular motions intact. ENT: Nose without drainage. Throat without erythema, tonsillar hypertrophy or exudate. Uvula midline. Airway patent. NECK: Trachea midline. CARDIOVASCULAR: Regular rate and rhythm without murmurs RESPIRATORY: Clear to auscultation. Breath sounds equal bilaterally. No wheezes. GASTROINTESTINAL: Abdomen soft, non-tender, nondistended. No guarding. MUSCULOSKELETAL: Extremities without edema. No joint tenderness, effusion, or edema noted. No calf tenderness. Negative Homans sign bilaterally. NEUROLOGICAL:sleepy but does wake up. Cranial nerves II through XII intact. Extremities with no difficulty, no edema noted. No tremors Laboratory Laboratory Tests Test 08/27/17 18:10 08/27/17 21:15 White Blood Count 5.7 Red Blood Count 4.14 Hemoglobin 13.1 Hematocrit 38.8 Mean Corpuscular Volume 93.8 Mean Corpuscular Hemoglobin 31.7 Mean Corpuscular Hemoglobin Concent 33.8 Red Cell Distribution Width 16.1 Platelet Count 91 Mean Platelet Volume 7.8 Neutrophils (%) (Auto) 74.1 Lymphocytes (%) (Auto) 15.4 Monocytes (%) (Auto) 7.5 Eosinophils (%) (Auto) 1.8 Basophils (%) (Auto) 1.2 Neutrophils # (Auto) 4.3 Lymphocytes # (Auto) 0.9 Monocytes # (Auto) 0.4 Eosinophils # (Auto) 0.1 Basophils # (Auto) 0.1 CBC Comment AUTO DIFF Differential Comment AUTO DIFF CONFIRMED Platelet Estimate LOW Platelet Morphology Comment NORMAL Blood Urea Nitrogen 13 Creatinine 0.89 Random Glucose 185 Total Protein 7.7 Albumin 3.5 Calcium Level 8.6 Alkaline Phosphatase 74 Aspartate Amino Transf (AST/SGOT) 13 Alanine Aminotransferase (ALT/SGPT) 15 Total Bilirubin 0.3 Sodium Level 135 Potassium Level 3.6 Chloride Level 102 Carbon Dioxide Level 27.7 Anion Gap 5 Estimat Glomerular Filtration Rate 85 Urine Opiates Screen NEG Urine Barbiturates Screen NEG Urine Amphetamines Screen NEG Urine Benzodiazepines Screen NEG Urine Cocaine Screen NEG Urine Cannabinoids Screen NEG Result Diagram: 08/27/[id number]/[id number] Assessment and Plan Assessment and Plan Dementia/aggression/backer act: management per psych Alcohol abuse: on thiamine and folate: [facility] protocol in place. Ordered alcohol level. Further management per psych. seizure and fall precautions have been ordered. PT eval ordered for assistance w d/c planning DM: pt has refused both breakfast and lunch. at this time I would recommend holding his scheduled insulin and just use low dose insulin sliding scale. continue metformin and monitor BS. HbA1C ordered. Last HbA1C was 6.0 in april 2017. Thank you for allowing me take part of Mr Valentine's care, at this time I will sign off, please reconsult as needed. Isa Ferris MD Aug 28, 2017 14:45
[2017-08-28] MEDS ORDERED: LORazepam 1 MG TAB PO PRN (15:00)
[2017-08-28] MEDS ORDERED: FLUMAZENIL 0.5 MG/5 ML VIAL IV PUSH PRN (15:00)
[2017-08-28] MEDS ORDERED: LORazepam 2 MG TAB PO PRN (15:00)
[2017-08-28] MEDS ORDERED: DEXTROSE 50% IN WATER 50 ML VIAL(D50) IV PUSH PRN (15:00)
[2017-08-28] MEDS ORDERED: LORazepam 2 MG/ML VIAL IV PUSH PRN ×4 (15:00)
[2017-08-28] MEDS ORDERED: GLUCAGON 1 MG/ML VIAL OTHER PRN (15:00)
--- NOTE | 2017-08-28 15:13 | PD.PSY.CON ---
Provisional Diagnosis Admission Date Aug 27, 2017 at 23:15 [place] I. Related to different disease FiO2 0.81, alcohol abuse, somatic brain injury History of Present Illness Service Psychiatry Consult Requested By Dr. Frankel Reason for Consult Second opinion Primary Care Physician Chen Hamilton MD HPI Patient is a 66-year-old white male who comes here under Blake act signed by Andrew Kraus at 08/27/17 11:56 AM that document reviewed stating Wernicke -Korsakoff syndrome, subdural hematoma, subarachnoid hemorrhage, suicidal ideation, adjustment disorder with disturbances of mood, alcohol abuse with alcohol-induced mood disorder. Also states scissors were removed from patient' s body and he stated that he needed them to pull his teeth out with them. Patient has been and continues to be verbally and physically aggressive towards staff. Upon review of the EMR it appears the patient was hospitalized here through 08/22/17 the at that time was admitted with a blood alcohol level of 218 and also significant traumatic brain injury. He did recover to the point where he was discharged on 08/22/17 to [facility]. Patient was returned to the hospital with this visit. Urine toxicology drawn on this visit is negative. There is no alcohol level drawn. At the present time patient sitting quietly in his room on 2500. Patient seen the floor staff. He is alert somewhat short disheveled white male he is diffusely confused in all 4 spheres. Is just asking about his clothes and wanting to leave. He refuses to sit in the day room. He has refused his meals. There have been consultations already ordered for hospitalist, neurology D, and neurosurgery. I reviewed the medication reconciliation, will continue medications including Seroquel. We will need further observe the patient and await recommendations from the [facility] consultations 08/28/17 - Second opinion Patient is a 58-year-old man with a recent TBI from subdural hematoma , subarachnoid hemorrhage, history of Wernicke's Korsakoff syndrome, history of alcohol use disorder was brought in on a Blake act. Patient was found lying in hospital bed, cooperative interview today. Patient noted to be confused, alert and oriented only to person. Patient throughout interview noted to make nonsensical statements, referring to living with his girlfriend but also stated that he was put in alf. Patient denies any suicide ideation at this time but did endorse homicidal ideation stating toward "I don't know". Patient endorses auditory hallucinations but was unable to identify what the voices were saying. Patient denies any visual disturbances. Past Family Social History Coded Allergies: Sulfa (Sulfonamide Antibiotics) (Unverified Allergy, Severe, UNKNOWN - CHILD, 08/07/17) Active Scripts Folic Acid (Folic Acid) 1 Mg Tablet, 1 MG PO DAILY for vitamin, #30 TAB Prov:Jordyn Moreno DO 08/21/17 Quetiapine (Seroquel) 25 Mg Tab, 25 MG PO BID for Agitation, #60 TAB Prov:Jordyn Moreno DO 08/21/17 Oxygen (O2) (Oxygen (O2)) Device, 2 LITER LIZA.CANULA CONTINUOUS for Prevent Hypoxemia, #2 CYLINDER Oxygen Concentrator Portable Gaseous 2 L/min via Nasal Canula Continuous For 99 months Prov:Andrez Broussard MD 04/08/17 Thiamine HCl (Gnp Vitamin B-1) 100 Mg Tab, 100 MG PO DAILY for Alcohol Detox, # 30 TAB Prov:Andrez Broussard MD 04/07/17 Reported Medications Insulin Glargine Inj (Lantus Inj) 1,000 Unit/10 Ml Vial, 1 UNITS SQ HS for Blood Sugar Management, VIAL 0 Refills 04/23/17 Metformin ER (Glucophage XR) 500 Mg Genet, 500 MG PO BID for Blood Sugar Management, #30 TAB 0 Refills With evening meal 04/02/17 Discontinued Reported Medications Hydrocodone-Acetaminophen (Lortab) 5-325 Mg Tab, 1 TAB PO Q4H Y for PAIN, TAB 0 Refills 04/23/17 Potassium Chloride ER (Potassium Chloride ER) 10 Meq Cap, 10 MEQ PO BID for Electrolyte Replacement, #60 CAP 0 Refills 04/23/17 Discontinued Scripts Chlordiazepoxide HCl (Chlordiazepoxide HCl) 25 Mg Capsule, 25 MG PO BID for Alcohol Detox, #7 MG Take 1 pill twice a day for 2 days then 1 pill daily for 3 days. Do not combine with alcohol. Prov:Andrez Broussard MD 04/07/17 Current Medications Medications (Trade) Dose Ordered Sig/Sameera Route Start Time Stop Time Status Last Admin (Ativan) 0.5 mg Q12H PRN PO 08/27/17 23:30 Future Hold (Ativan Inj) 0.5 mg Q12H PRN IM 08/27/17 23:30 Future Hold (Atarax) 50 mg Q6H PRN PO 08/27/17 23:30 Future Hold (Benadryl) 50 mg Q6H PRN PO 08/27/17 23:30 Future Hold (Benadryl Inj) 50 mg Q6H PRN IM 08/27/17 23:30 Future Hold (Cogentin) 1 mg Q12H PRN PO 08/27/17 23:30 (Cogentin Inj) 1 mg Q12H PRN IM 08/27/17 23:30 (Benadryl) 50 mg HS PRN PO 08/27/17 23:30 Future Hold (Benadryl Inj) 50 mg HS PRN IM 08/27/17 23:30 Future Hold (Desyrel) 50 mg HS PRN PO 08/27/17 23:30 Future Hold (Tylenol) 650 mg Q4H PRN PO 08/27/17 23:30 (Milk Of Magnesia Liq) 30 ml DAILY PRN PO 08/27/17 23:30 (Mag-Al Plus Susp Liq) 30 ml Q6H PRN PO 08/27/17 23:30 (Habitrol 21 Mg Patch.24 Hr) 1 patch DAILY T-DERMAL 08/28/17 09:00 Miscellaneous Information 1 HS T-DERMAL 08/28/17 21:00 (Glucophage) 500 mg BID PO 08/28/17 09:00 (Vitamin B1) 100 mg DAILY PO 08/28/17 09:00 (Folate) 1 mg DAILY PO 08/28/17 09:00 (Ativan) 1 mg Q4H PRN PO 08/28/17 15:00 (Ativan) 2 mg Q2H PRN PO 08/28/17 15:00 (D50w (Vial) Inj) 50 ml UNSCH PRN IV PUSH 08/28/17 15:00 (Glucagon Inj) 1 mg UNSCH PRN OTHER 08/28/17 15:00 (NovoLOG SUPPLEMENTAL SCALE) 1 ACHS SLIDING SCALE SQ 08/28/17 17:00 Patient's Strengths (min. 2) Patient verbal able exercise health care Physical Exam Vital Signs Vital Signs Date Time Temp Pulse Resp B/P (MAP) Pulse Ox O2 Delivery O2 Flow Rate FiO2 08/28/17 05:31 98.8 85 17 91/55 (67) 97 08/27/17 21:00 Room Air Lab Results Test 08/27/17 18:10 08/27/17 21:15 White Blood Count 5.7 TH/MM3 Red Blood Count 4.14 MIL/MM3 Hemoglobin 13.1 GM/DL Hematocrit 38.8 % Mean Corpuscular Volume 93.8 FL Mean Corpuscular Hemoglobin 31.7 PG Mean Corpuscular Hemoglobin Concent 33.8 % Red Cell Distribution Width 16.1 % Platelet Count 91 TH/MM3 Mean Platelet Volume 7.8 FL Neutrophils (%) (Auto) 74.1 % Lymphocytes (%) (Auto) 15.4 % Monocytes (%) (Auto) 7.5 % Eosinophils (%) (Auto) 1.8 % Basophils (%) (Auto) 1.2 % Neutrophils # (Auto) 4.3 TH/MM3 Lymphocytes # (Auto) 0.9 TH/MM3 Monocytes # (Auto) 0.4 TH/MM3 Eosinophils # (Auto) 0.1 TH/MM3 Basophils # (Auto) 0.1 TH/MM3 CBC Comment AUTO DIFF Differential Comment AUTO DIFF CONFIRMED Platelet Estimate LOW Platelet Morphology Comment NORMAL Blood Urea Nitrogen 13 MG/DL Creatinine 0.89 MG/DL Random Glucose 185 MG/DL Total Protein 7.7 GM/DL Albumin 3.5 GM/DL Calcium Level 8.6 MG/DL Alkaline Phosphatase 74 U/L Aspartate Amino Transf (AST/SGOT) 13 U/L Alanine Aminotransferase (ALT/SGPT) 15 U/L Total Bilirubin 0.3 MG/DL Sodium Level 135 MEQ/L Potassium Level 3.6 MEQ/L Chloride Level 102 MEQ/L Carbon Dioxide Level 27.7 MEQ/L Anion Gap 5 MEQ/L Estimat Glomerular Filtration Rate 85 ML/MIN Urine Opiates Screen NEG Urine Barbiturates Screen NEG Urine Amphetamines Screen NEG Urine Benzodiazepines Screen NEG Urine Cocaine Screen NEG Urine Cannabinoids Screen NEG Mental Status Examination Appearance: Disheveled Consciousness: Alert Orientation: Person, Place ([facility]), Date/Time (2014) Motor Activity: Normal gait Speech: Unremarkable Language: Adequate Fund of Knowledge: Adequate Attention and Concentration: Other (poor) Memory: Unremarkable (or) Mood: Irritable Affect: Other Thought Process & Associations: Loose associations, Disorganized Thought Content: Bizarre thinking, Delusional Hallucination Type: Auditory Delusion Type: Bizarre Suicidal Ideation: No Suicidal Plan: No Suicidal Intention: No Homicidal Ideation: No Homicidal Plan: No Homicidal Intention: No Insight: Poor Judgment: Poor Assessment & Plan Problem List: (1) DEMENTIA IN OTH DISEASES CLASSD ELSWHR W BEHAVIORAL DISTURB ICD Codes: F02.81 - DEMENTIA IN OTH DISEASES CLASSD ELSWHR W BEHAVIORAL DISTURB (2) Traumatic brain injury ICD Codes: S06.9X9A - Unspecified intracranial injury with loss of consciousness of unspecified duration, initial encounter (3) Alcohol abuse ICD Codes: F10.10 - Alcohol abuse, uncomplicated Assessment & Plan I have seen and examined this patient, reviewed the documentation, discussed personally with Dr. Frankel and I agree and concur with his assessment and plan. Consult appreciated. Request HC Surrog/Guard Advoc?: Yes Bhaskar Ray MD Aug 28, 2017 15:13
[2017-08-28] MEDS: INSULIN ASPART SUPPLEMENTAL SCALE SQ SCH ×2 (16:12→21:00)
[2017-08-28 16:30] VITALS: BP 91/55; PULSE 85; RESP 17; TEMP 97.6; O2SAT 97
[2017-08-28] MEDS ORDERED: INSULIN DETEMIR 100 UNITS/ML VIAL SQ SCH (21:00)
[2017-08-28] MEDS: REMOVE OLD NICOTINE PATCH T-DERMAL SCH (21:00)
[2017-08-28] MEDS ORDERED: LORazepam 2 MG/ML VIAL IM ONE (21:30)
[2017-08-28] MEDS ORDERED: HALOPERIDOL LACTATE 5 MG/ML AMP IM ONE (21:30)
[2017-08-28 21:31] LABS: ALCOHOL LESS THAN 3 MG/DL (0-5)
[2017-08-29 05:36] VITALS: BP 94/52; PULSE 72; RESP 16; TEMP 98.1; O2SAT 92
[2017-08-29] MEDS: INSULIN ASPART SUPPLEMENTAL SCALE SQ SCH ×4 (08:00→21:00)
[2017-08-29] MEDS: THIAMINE HCL 100 MG TAB PO SCH (08:58)
[2017-08-29] MEDS: FOLIC ACID 1 MG TAB PO SCH (08:58)
[2017-08-29] MEDS: metFORMIN HCL 500 MG TAB PO SCH ×2 (08:58→21:40)
[2017-08-29] MEDS: NICOTINE 21 MG/24 HR PATCH T-DERMAL SCH (09:00)
[2017-08-29 09:20] LABS: BICARBONATE 29.4 MEQ/L (21.0-32.0)
[2017-08-29 09:26] LABS: HDL CHOLESTEROL 32.2 MG/DL (40.0-60.0)
--- NOTE | 2017-08-29 11:02 | HHI.PYPN ---
Subjective Chief Complaint: patient confused, wanting to cut teeth out with the scissors Remarks Patient seen in his room with nurse Shukri, chart reviewed patient compliant medication. Patient attempted to escape yesterday attempted to climb through the false ceiling though awake to alert diffusely confused. As no specific recollection of the events yesterday. For now continue treatment no change Review of Systems Except as stated in HPI: all other systems reviewed are Neg Mental Status Examination Appearance: Disheveled Consciousness: Alert Orientation: Person, Place ([facility]), Date/Time (2014) Motor Activity: Normal gait Speech: Unremarkable Language: Adequate Fund of Knowledge: Adequate Attention and Concentration: Other (poor) Memory: Unremarkable (or) Mood: Irritable Affect: Other Thought Process & Associations: Loose associations, Disorganized Thought Content: Bizarre thinking, Delusional Hallucination Type: Auditory Delusion Type: Bizarre Suicidal Ideation: No Suicidal Plan: No Suicidal Intention: No Homicidal Ideation: No Homicidal Plan: No Homicidal Intention: No Insight: Poor Judgment: Poor Results Labs Test 08/28/17 20:20 08/29/17 08:50 Blood Urea Nitrogen 10 MG/DL Creatinine 0.56 MG/DL Random Glucose 108 MG/DL Calcium Level 8.7 MG/DL Sodium Level 136 MEQ/L Potassium Level 4.0 MEQ/L Chloride Level 102 MEQ/L Carbon Dioxide Level 29.4 MEQ/L Anion Gap 5 MEQ/L Estimat Glomerular Filtration Rate 145 ML/MIN Triglycerides Level 82 MG/DL Cholesterol Level 129 MG/DL LDL Cholesterol 80 MG/DL HDL Cholesterol 32.2 MG/DL Cholesterol/HDL Ratio 4.00 RATIO Vitals/IOs Vital Signs Date Time Temp Pulse Resp B/P (MAP) Pulse Ox O2 Delivery O2 Flow Rate FiO2 08/29/17 05:36 98.1 72 16 94/52 (66) 92 08/27/17 21:00 Room Air Assessment & Plan Problem List: (1) DEMENTIA IN OTH DISEASES CLASSD ELSWHR W BEHAVIORAL DISTURB ICD Codes: F02.81 - DEMENTIA IN OTH DISEASES CLASSD ELSWHR W BEHAVIORAL DISTURB (2) Traumatic brain injury ICD Codes: S06.9X9A - Unspecified intracranial injury with loss of consciousness of unspecified duration, initial encounter (3) Alcohol abuse ICD Codes: F10.10 - Alcohol abuse, uncomplicated Assessment & Plan Estimated LOS: days patient is confused demented did attempt to elope yesterday. Necessitating an ETO. Now continue treatment Justification for Cont. Inpt. At this time patient will decompensate if placed on lower level of care Discharge Planning Place of remains quite problematic will need to work with treatment team and discharge planners Request HC Surrog/Guard Advoc?: Yes Rakesh Frankel MD Aug 29, 2017 11:02
[2017-08-29 18:00] VITALS: BP 129/67; PULSE 95; RESP 16; TEMP 98.6; O2SAT 93
[2017-08-29] MEDS: REMOVE OLD NICOTINE PATCH T-DERMAL SCH (21:00)
[2017-08-29 21:46] LABS: HEMOGLOBIN A1b 0.7 %; HEMOGLOBIN Ao 85.8 %; HEMOGLOBIN LA1C 1.6 %; HEMOGLOBIN P3 3.6 %
[2017-08-30 06:24] VITALS: BP 112/61; PULSE 70; RESP 16; TEMP 97.1; O2SAT 100
[2017-08-30] MEDS: INSULIN ASPART SUPPLEMENTAL SCALE SQ SCH ×2 (08:00→11:19)
[2017-08-30] MEDS: metFORMIN HCL 500 MG TAB PO SCH (08:24)
[2017-08-30] MEDS: FOLIC ACID 1 MG TAB PO SCH (08:25)
[2017-08-30] MEDS: THIAMINE HCL 100 MG TAB PO SCH (08:25)
[2017-08-30] MEDS: NICOTINE 21 MG/24 HR PATCH T-DERMAL SCH (09:00)
--- NOTE | 2017-08-30 12:14 | HHI.PYPN ---
Subjective Chief Complaint: patient confused, wanting to cut teeth out with the scissors Remarks Patient was seen and case discussed with nursing. Patient is loose, and tangential. Alert and oriented 2. Behaving well on the unit. Insight is poor. Compliant with his medications. Denies any positive psychotic symptoms. Tolerating medications well Mental Status Examination Appearance: Disheveled Consciousness: Alert Orientation: Person, Place ([facility]) Motor Activity: Normal gait Speech: Unremarkable Language: Adequate Fund of Knowledge: Adequate Attention and Concentration: Other (poor) Memory: Unremarkable (or) Mood: Irritable Affect: Other Thought Process & Associations: Loose associations, Disorganized Thought Content: Bizarre thinking, Delusional Hallucination Type: Auditory (denies today) Delusion Type: Bizarre Suicidal Ideation: No Suicidal Plan: No Suicidal Intention: No Homicidal Ideation: No Homicidal Plan: No Homicidal Intention: No Insight: Poor Judgment: Poor Results Vitals/IOs Vital Signs Date Time Temp Pulse Resp B/P (MAP) Pulse Ox O2 Delivery O2 Flow Rate FiO2 08/30/17 06:24 97.1 70 16 112/61 (78) 100 08/27/17 21:00 Room Air Intake and Output 08/30/17 08/30/17 08/31/17 08:00 16:00 00:00 Intake Total 240 ml Balance 240 ml Assessment & Plan Problem List: (1) DEMENTIA IN OTH DISEASES CLASSD ELSWHR W BEHAVIORAL DISTURB ICD Codes: F02.81 - DEMENTIA IN OTH DISEASES CLASSD ELSWHR W BEHAVIORAL DISTURB (2) Traumatic brain injury ICD Codes: S06.9X9A - Unspecified intracranial injury with loss of consciousness of unspecified duration, initial encounter (3) Alcohol abuse ICD Codes: F10.10 - Alcohol abuse, uncomplicated Assessment & Plan Continue current treatment plan Justification for Cont. Inpt. Patient would decompensate in a less restrictive setting Request HC Surrog/Guard Advoc?: Yes Myron Brunson DO Aug 30, 2017 12:14
[2017-08-30 14:10] LABS: BLOOD GAS BASE EXCESS 1.6 mmol/L (-2-2); BLOOD GAS CARBOXYHEMOGLOBIN 1.7 % (0-4); BLOOD GAS HCO3 25 mmol/L (22-26); BLOOD GAS O2 HGB SATURATION 92 % (90-100); BLOOD GAS OXYGEN CONTENT 17.8 Vol % (12.0-20.0); BLOOD GAS PCO2 38 mmHg (38-42); BLOOD GAS PO2 74 mmHg (61-120); BLOOD GAS TOTAL HGB 13.8 G/DL (12.0-16.0); CRITICAL VALUE NO; LITER FLOW 2 L/M; OXYGEN DEVICE NASAL CANNULA; TEMP CORR TO 98.6
[2017-08-30 14:11] LABS: DRAW SITE RT RADIAL; NUMBER OF ARTERIAL PUNCTURES 1; STAT YES; ULNAR PULSE PRESENT
[2017-08-30] MEDS ORDERED: RESP: ALBUTEROL 2.5 MG/IPRATROPIUM 0.5 MG NEB (PRN) INH (14:30)
[2017-08-30] MEDS ORDERED: SODIUM CHLORIDE 0.9% FLUSH 10 ML FLUSH IV FLUSH PRN (14:30)
[2017-08-30] MEDS ORDERED: SODIUM CHLORIDE 0.9% FLUSH 10 ML FLUSH IV FLUSH SCH (14:30)
[2017-08-30] MEDS ORDERED: NS + KCL 20 MEQ INJ 1,000 ML IV SCH (14:30)
[2017-08-30] MEDS ORDERED: CHLORHEXIDINE GLUCONATE 2 % 1 PACK (2 CLOTHS) TOP PRN (14:30)
[2017-08-30] MEDS ORDERED: MISCELLANEOUS NURSING INFORMATION XX SCH (14:30)
--- NOTE | 2017-08-30 14:30 | RADRPT ---
EXAM DATE/TIME: 08/30/2017 14:15 [facility] COMPARISON: No previous studies available for comparison. INDICATIONS : Altered mental status. RADIATION DOSE: 40.51 CTDIvol (mGy) ; Patient motion MEDICAL HISTORY : Seizures. Cardiovascular disease Hepatitis C. SURGICAL HISTORY : None. ENCOUNTER: Initial ACUITY: 1 day PAIN SCALE: Non-responsive LOCATION: Bilateral head TECHNIQUE: Multiple contiguous axial images were obtained of the head. Using automated exposure control and adj ustment of the mA and/or kV according to patient size, radiation dose was kept as low as reasonably a chievable to obtain optimal diagnostic quality images. DICOM format image data is available electro nically for review and comparison. FINDINGS: The previous right subdural hematoma has mixed acute and chronic hemorrhage and is increasing in size now measuring up to 17 mm in thickness with 4 mm right to left midline shift. There is evolving pare nchymal hemorrhage in the left temporal lobe with surrounding edema. Previous intraventricular hemorr mendy is resolving. No new bony abnormality. CONCLUSION: 1. Increase in size of right subdural hematoma measuring up to about 17 mm in thickness with acute an d chronic blood products. Comparison is August 09. Findings called to nurse Keerthi at time of dictation . Andrez Lewis MD on August 30, 2017 at 14:22 Board Certified Radiologist. This report was verified electronically.
--- NOTE | 2017-08-30 14:37 | RADRPT ---
EXAM DATE/TIME: 08/30/2017 14:24 [facility] COMPARISON: CHEST SINGLE AP, August 15, 2017, 15:14. INDICATIONS : Short of breath after fall. MEDICAL HISTORY : Hepatitis C. Cardiovascular disease. Subdural 04/2017. SURGICAL HISTORY : Tonsillectomy. ENCOUNTER: Initial ACUITY: 1 day PAIN SCORE: Non-responsive. LOCATION: Bilateral chest FINDINGS: Minimal basilar atelectasis. No consolidation or effusion. Remote left rib fractures. Heart size norm al. No pneumothorax. CONCLUSION: 1. Minimal basilar atelectasis. No pneumothorax or effusion. Andrez Lewis MD on August 30, 2017 at 14:35 Board Certified Radiologist. This report was verified electronically.
--- NOTE | 2017-08-30 14:39 | HHI.PR ---
Subjective Remarks Jassonastrid was paged on patient because nursing staff heard a "plop" and then found patient on the floor breathing heavily and being stiff. Pt was unresponsive and only would respond to painful stimulus. I arrived at bedside, pt was unresponsive, had saliva in his mouth, eyes appeared to be deviated towards the right. pt was stiff. I did note that pt had urinary incontinence as the front of his pants were wet. Vitals at that time were T98.6, HR 113, RR 18, O3sats 99%, BP 183/102 and BS was 155. Pt slowly started moving his right upper extremity and touching his head Objective Vitals Vital Signs Date Time Temp Pulse Resp B/P (MAP) Pulse Ox O2 Delivery O2 Flow Rate FiO2 08/30/17 06:24 97.1 70 16 112/61 (78) 100 08/29/17 18:00 98.6 95 16 129/67 (87) 93 I/O 08/29/17 08/29/17 08/29/17 08/30/17 08/30/17 08/30/17 07:00 15:00 23:00 07:00 15:00 23:00 Intake Total 0 ml 360 ml 480 ml Balance 0 ml 360 ml 480 ml Intake Oral 0 ml 360 ml 480 ml Result Diagram: 08/27/17 1810 08/29/17 0850 Objective Remarks GENERAL: unresponsive but did start to move his right arm slowly a few mins later, but wouldn't speak to me, continues to hyperventilate and has saliva in his mouth. SKIN:Cool and dry. HEAD: didn't note any opening EYES: eyes deviated toward the right but later on the way to CT scan, pt started moving them ENT: saliva around the mouth, somewhat clenching his teeth NECK: Trachea midline. CARDIOVASCULAR: Regular rate and rhythm without murmurs RESPIRATORY: Clear to auscultation. Breath sounds equal bilaterally. No wheezes. GASTROINTESTINAL: Abdomen soft, non-tender, nondistended. No guarding. MUSCULOSKELETAL: Extremities without edema. initially responded to painful stimuli on the right then slowly started moving the right upper and lower extremities. Some movement later ellicited on the left, keeps left hand closed. NEUROLOGICAL: initially unresponsive but then started to have some movement A/P Assessment and Plan Fall/unresponsiveness; STAT CT head, ABG, xray ordered. ABG results showed pH 7.44, CO2 38, HCO3 25. I accompanied pt to CT scanner w pallavi BHATT and our nurse practitioner, there I noted that pt wouldn't move his left side but later he did elevate his left arm but only half way, pt didn't seem to follow commands much. Still confused. I received a call from pallavi BHATT notifying me that CT is concerning for a subdural hematoma w shift. I immediately requested that pt be transferred to [facility]. I personally spoke w Dr. Cameron, crayon molding machine operator building service worker who reviewed pt's CT w me and then he notified the neurosurgeon crayon molding machine operator. I did notify Dr. Cameron of pt's elevated BP 183/102. I did also notify Dr. Beck (psychiatrist crayon molding machine operator) of patient's condition and he agrees w transfer to [facility]. Further management per building service worker/neurosx teams. Spent > 35 mins in critical care time, coordinating care, reviewing chart and discussing case w building service worker Isa Ferris MD Aug 30, 2017 14:39
[2017-08-30] MEDS ORDERED: ETOMIDATE 20 MG/10 ML VIAL IV PUSH ONE (14:45)
[2017-08-30] MEDS ORDERED: MIDAZOLAM HCL 5 MG/ML VIAL (1 ML) IV PUSH ONE (14:45)
[2017-08-30] MEDS ORDERED: FOSPHENYTOIN INJ 1,000 MGPE in SODIUM CHLORIDE 0.9% INJ 50 ML IV ONE (14:45)
[2017-08-30] MEDS ORDERED: ROCURONIUM INJ 50 MG/5 ML VIAL IV ONE (15:00)
[2017-08-30] MEDS ORDERED: ETOMIDATE 40 MG/20 ML VIAL ONE (15:06)
[2017-08-30] MEDS ORDERED: LORazepam 2 MG/ML VIAL ONE (15:07)
[2017-08-30] MEDS ORDERED: MIDAZOLAM HCL 5 MG/ML VIAL (1 ML) ONE (15:07)
[2017-08-30] MEDS ORDERED: FAMOTIDINE 20 MG/2 ML VIAL IV PUSH SCH (21:00)
[2017-08-30] MEDS ORDERED: FOSPHENYTOIN SODIUM 100 MG PE/2 ML VIAL IV SCH (22:00)
[2017-08-31] MEDS ORDERED: CHLORHEXIDINE GLUCONATE 2 % 1 PACK (2 CLOTHS) TOP SCH (04:00)
== END 2017-08-30 14:10 | disposition short-term general hospital (02) | DRG 884 ==
LOC: NEPC 17:28 → NEDA 23:15 → H250 08-28 00:30
PROVIDERS: ADMIT Psychiatry & Neurology Psychiatry; ATTEND Psychiatry & Neurology Psychiatry
DX: F03.91 Unspecified dementia, unspecified severity, with behavioral disturbance (principal); I62.01 Nontraumatic acute subdural hemorrhage; Z99.81 Dependence on supplemental oxygen; R45.851 Suicidal ideations; M19.90 Unspecified osteoarthritis, unspecified site; E11.9 Type 2 diabetes mellitus without complications; I25.2 Old myocardial infarction; F10.14 Alcohol abuse with alcohol-induced mood disorder; F10.159 Alcohol abuse with alcohol-induced psychotic disorder, unspecified; F43.29 Adjustment disorder with other symptoms; Y90.0 Blood alcohol level of less than 20 mg/100 ml; Z72.0 Tobacco use; Z79.4 Long term (current) use of insulin; Z87.820 Personal history of traumatic brain injury; Z88.2 Allergy status to sulfonamides
CPT/HCPCS: 36600; 70450; 71010; 80048; 80053; 80061; 80307; 82805; 82948; 83036; 84425; 85025; 99285; J1630; J1815; J2060; J2250

== ENCOUNTER 2017-08-30 15:22 | Inpatient (IN) | payer OTHER, MEDICARE ==
[2017-08-30] VITALS (7 sets, daily range): BP systolic 97–188; BP diastolic 62–104; PULSE 64–112; RESP 16–25; TEMP 97.9–98.3; O2SAT 100
[~2017-08-30] VITALS: Ht 170.2 cm; Wt 79.8 kg
[2017-08-30] MEDS: PROPOFOL 1000 MG/100 ML INJ 100 ML IV PRN ×2 (15:39→17:39)
[2017-08-30] MEDS ORDERED: RESP: ALBUTEROL 2.5 MG/IPRATROPIUM 0.5 MG NEB (PRN) INH (15:45)
[2017-08-30] MEDS ORDERED: MAGNESIUM HYDROXIDE SUSP 30 ML CUP PO PRN (15:45)
[2017-08-30] MEDS ORDERED: CHLORHEXIDINE GLUCONATE 2 % 1 PACK (2 CLOTHS) TOP PRN (15:45)
[2017-08-30] MEDS ORDERED: MISCELLANEOUS NURSING INFORMATION XX SCH (15:45)
[2017-08-30] MEDS ORDERED: SENNOSIDES 8.6 MG TAB PO PRN (15:45)
[2017-08-30] MEDS ORDERED: SODIUM CHLORIDE 0.9% FLUSH 10 ML FLUSH IV FLUSH PRN (15:45)
[2017-08-30] MEDS ORDERED: BISACODYL 10 MG SUPP RECTAL PRN (15:45)
[2017-08-30] MEDS ORDERED: POTASSIUM PHOSPHATE MONOBASIC 500 MG TAB PO/TUBE PRN (16:00)
[2017-08-30] MEDS ORDERED: POTASSIUM CHLOR 20 MEQ PREMIX 100 ML IV PRN (16:00)
[2017-08-30] MEDS ORDERED: MAGNESIUM OXIDE 400 MG TAB PO PRN (16:00)
[2017-08-30] MEDS ORDERED: FOSPHENYTOIN INJ 1,000 MGPE in SODIUM CHLORIDE 0.9% INJ 50 ML IV ONE (16:00)
[2017-08-30] MEDS ORDERED: POTASSIUM CHLOR 40 MEQ PREMIX 100 ML IV PRN ×2 (16:00)
[2017-08-30] MEDS ORDERED: NS IV ONE (16:00)
[2017-08-30] MEDS ORDERED: POTASSIUM PHOSPHATE MONOBASIC 500 MG TAB PO PRN (16:00)
[2017-08-30] MEDS ORDERED: POTASSIUM PHOSPHATE INJ 30 MMOL in SODIUM CHLOR 0.9% 250 ML INJ 250 ML IV PRN (16:00)
[2017-08-30] MEDS ORDERED: MAGNESIUM SULFATE INJ 4 GM in SODIUM CHLORIDE 0.9% INJ 92 ML IV PRN (16:00)
[2017-08-30] MEDS ORDERED: MAGNESIUM SULFATE INJ 2 GM in SODIUM CHLORIDE 0.9% INJ 96 ML IV PRN (16:00)
[2017-08-30] MEDS ORDERED: FOSPHENYTOIN IV ONE (16:00)
[2017-08-30] MEDS ORDERED: SODIUM PHOSPHATE INJ 30 MMOL in SODIUM CHLOR 0.9% 250 ML INJ 240 ML IV PRN (16:00)
--- NOTE | 2017-08-30 16:03 | HHI.HP ---
[facility] Service Critical Care Medicine Primary Care Physician Unknown Admission Diagnosis Diagnosis: (1) Acute on chronic subdural hemorrhage with midline shift Diagnosis: Principal (2) Probabe seizure Diagnosis: Principal (3) Acute encephalopathy Diagnosis: Principal (4) Traumatic brain injury Diagnosis: Secondary (5) Subarachnoid hemorrhage Diagnosis: Secondary (6) Alcohol abuse with alcohol-induced mood disorder Diagnosis: Secondary (7) COPD (chronic obstructive pulmonary disease) Diagnosis: Secondary Chief Complaint: Acute loss of consciousness Acute on chronic subdural hemorrhage Travel History International Travel<30 Days: No Contact w/Intl Traveler <30 Da: No Traveled to Known Affected Are: No History of Present Illness Patient is a 66-year-old white male who was admitted to the psychiatric service under Blake act on 08/27/17. He has history of Wernicke-Korsakoff syndrome, TBI with subdural hematoma, previous TBI with subarachnoid hemorrhage, suicidal ideation, alcohol abuse, COPD and alcohol-induced cirrhosis. Patient was hospitalized here 08/07/17 through 08/23/17 after passing out at a bar and sustaining a traumatic brain injury. At that time he did have bilateral subdural hemorrhages and small bitemporal hemorrhages. Patient was managed conservatively (N/S Dr. Duque) [facility] Prior to this he was admitted in March 2017 for TBI and subarachnoid hemorrhage. Psych admitting diagnosis was dementia with behavioral disturbances and aggressive behavior towards staff at [facility]. Today 08/30/17 a Halicat was called after patient was found on the floor. Apparently patient was in his normal state today a.m.. Nursing staff responded to hearing a thud in his room, patient was found to be lying on the floor with foaming him from his mouth and incontinence to urine. Apparently nursing staff also noted some seizure-like activity. Patient was unresponsive and nonverbal, but eyes open. A stat CT of the head was done which showed increase in size of the acute on chronic subdural hemorrhage now 1.7 cm with mild midline shift. Patient was emergently transferred to the ICU and critical care medicine was consulted. I immediately evaluated the patient. His level of consciousness is improving but he is very agitated. I discussed with Dr. Gonzalez who also evaluated the patient. Because of increase in size of the bleed patient will need evacuation of the subdural hemorrhage. Transfuse 1 unit platelets to correct thrombocytopenia. Due to severe agitation and new increase in bleed patient will be intubated and placed on mechanical ventilation. Dr. Gonzalez has updated the power of data security analyst was agreeable to intubation and surgical evacuation of the subdural hemorrhage Review of Systems ROS Limitations: Clinical Condition, Altered Mental Status Past Family Social History Allergies: Coded Allergies: Sulfa (Sulfonamide Antibiotics) (Unverified Allergy, Severe, UNKNOWN - CHILD, 08/07/17) Past Medical History Alcohol dependence Liver cirrhosis Hepatitis C Dementia with behavioral disturbances Wernicke-Korsakoff's syndrome Subdural hemorrhage TBI COPD Past Surgical History TBI with subarachnoid hemorrhage March 2017 TBI with subdural hemorrhage bilateral, bitemporal hemorrhage August 2017 Reported Medications Medications from [facility] reviewed Active Ordered Medications See chart Family History Unable to obtain Social History History of alcohol dependence, previous cocaine use Otherwise unable to obtain due to clinical condition Physical Exam Physical Exam GENERAL: 66-year-old male please agitated, mumbled speech SKIN: warm/dry. HEAD: Normocephalic. EYES: Pupils equal and round. No scleral icterus. No injection or drainage. ENT: No nasal bleeding or discharge. Airway patent NECK: Trachea midline. Full range of motion without pain.. CARDIOVASCULAR: Regular rate and rhythm. Heart sounds normal. RESPIRATORY: No accessory muscle use. Clear to auscultation. GASTROINTESTINAL: Abdomen soft. Nontender. Bowel sounds present. Nondistended. MUSCULOSKELETAL: No obvious deformities. NEUROLOGICAL: Patient appears to be in distress. Not able to follow commands moves all extremities. Mumbled speech. Attempts to climb out of bed, now in 4 point restraints Laboratory Reviewed Imaging Ct scan shows 1.7 cm right acute on chronic subdural hemorrhage with mild midline shift and pressure effect on right lateral ventricle Caprini VTE Risk Assessment Caprini VTE Risk Assessment: Mod/High Risk (score >= 2) VTE Pharm Contraindication: Hemorrhage Caprini Risk Assessment Model Point Value = 1 Point Value = 2 Point Value = 3 Point Value = 5 Age 41-60 Minor surgery BMI > 25 kg/m2 Swollen legs Varicose veins or History of unexplained or recurrent spontaneous Oral contraceptives or hormone replacement Sepsis (< 1 month) Serious lung disease, including pneumonia (< 1 month) Abnormal pulmonary function Acute myocardial infarction Congestive heart failure (< 1 month) History of inflammatory bowel disease Medical patient at bed rest Age 61-74 Arthroscopic surgery Major open surgery (> 45 min) Laparoscopic surgery (> 45 min) Malignancy Confined to bed (> 72 hours) Immobilizing plaster cast Central venous access Age >= 75 History of VTE Family history of VTE Factor V Leiden Prothrombin [id number] Lupus anticoagulant Anticardiolipin antibodies Elevated serum homocysteine Heparin-induced thrombocytopenia Other congenital or acquired thrombophilia Stroke (< 1 month) Elective arthroplasty Hip, pelvis, or leg fracture Acute spinal cord injury (< 1 month) Prophylaxis Regimen Total Risk Factor Score Risk Level Prophylaxis Regimen 0-1 Low Early ambulation 2 Moderate Order ONE of the following: *Sequential Compression Device (SCD) *Heparin 5000 units SQ BID 3-4 Higher Order ONE of the following medications: *Heparin 5000 units SQ TID *Enoxaparin/Lovenox 40 mg SQ daily (WT < 150 kg, CrCl > 30 mL/min) *Enoxaparin/Lovenox 30 mg SQ daily (WT < 150 kg, CrCl > 10-29 mL/min) *Enoxaparin/Lovenox 30 mg SQ BID (WT < 150 kg, CrCl > 30 mL/min) AND/OR *Sequential Compression Device (SCD) 5 or more Highest Order ONE of the following medications: *Heparin 5000 units SQ TID (Preferred with Epidurals) *Enoxaparin/Lovenox 40 mg SQ daily (WT < 150 kg, CrCl > 30 mL/min) *Enoxaparin/Lovenox 30 mg SQ daily (WT < 150 kg, CrCl > 10-29 mL/min) *Enoxaparin/Lovenox 30 mg SQ BID (WT < 150 kg, CrCl > 30 mL/min) AND *Sequential Compression Device (SCD) Assessment and Plan Assessment and Plan ASSESSMENT/PLAN Neuro: Acute on chronic right subdural hemorrhage 1.7 cm with 4 mm midline shift Stable, evolving left intraparenchymal hemorrhage Acute encephalopathy Alcohol dependence Dementia with behavioral disturbances - Follow neuro status. Neurosurgery consulted. Dr. Gonzalez - Plan for evacuation of subdural hemorrhage tomorrow a.m. - Start 2% saline at 40 ml - Propofol for sedation and vent synchrony postintubation - GCS more than 10 no indication for ICP monitor at this time - Transfuse 1 unit pheresed platelets in view of thrombocytopenia - IV Thiamine. Ativan for seizures - Loaded with Cerebyx 1 g and continue 100 mg every 8 hours. EEG in am - Psych re consult once stable and extubated Cardiovascular: Hypertension, uncontrolled - Labetalol when necessary to keep SBP less than 150 mmHg - Cardene infusion to keep systolic blood pressure less than 150 - Normal saline IV fluid at 120 ml per hour, 2% saline as above Pulmonary: Acute respiratory failure COPD without exacerbation - Intubated due to severe agitation and for airway protection - Assist-control mechanical ventilation, vent bundle - DuoNeb every 6 hours when necessary GI/liver: History of hepatitis C and liver cirrhosis - Nothing by mouth. IV famotidine Renal/: - IV hydration, follow intake output, monitor and replete electrolytes, follow BUN/creatinine. ID: - No indication for antibiotics at this time Endocrine: Sliding scale insulin for glycemic control if needed Heme: Mild thrombocytopenia - Follow CBC and coags. Transfuse blood products and vitamin K as needed Prophylaxis: - Pepcid/SCDs. No subcutaneous heparin due to subdural hemorrhage Further recommendations per Dr. Gonzalez Discussed with Dr. Gonzalez CCT 55 MIN excluding procedural time Code Status Full Discussed Condition With D/W Dr. Gonzalez Problem Qualifiers (1) Traumatic brain injury: Qualified Codes: S06.9X0S - Unspecified intracranial injury without loss of consciousness, sequela (2) COPD (chronic obstructive pulmonary disease): Daria Cameron MD Aug 30, 2017 16:03
[2017-08-30] MEDS ORDERED: PROPOFOL 500 MG/50 ML INJ 50 ML ONE (16:06)
[2017-08-30] MEDS: PHENYTOIN INJ 100 MG/2 ML VIAL IV PUSH SCH ×2 (16:15→20:52)
--- NOTE | 2017-08-30 16:24 | RADRPT ---
EXAM DATE/TIME: 08/30/2017 15:51 [facility] COMPARISON: CHEST SINGLE AP, August 30, 2017, 14:24. INDICATIONS : Stat post intubation. MEDICAL HISTORY : Hepatitis C. Cardiovascular disease. Subdural 04/2017. SURGICAL HISTORY : Tonsillectomy. ENCOUNTER: Initial ACUITY: 1 day PAIN SCORE: Non-responsive. LOCATION: Bilateral chest FINDINGS: Endotracheal tube tip is 3.5 cm above the ailin. Patchy areas of infiltrate in the left lower lung without consolidation. Right lung is clear. The heart is normal size. Old left rib fractures. CONCLUSION: ET tube in good position. Anuel Brennan MD on August 30, 2017 at 16:21 Board Certified Radiologist. This report was verified electronically.
--- NOTE | 2017-08-30 16:31 | MB ---
cc: RANJIT JONES M.D., ROHIT K. M.D. DATE OF CONSULTATION: 08/30/2017. REASON FOR CONSULTATION: Right subdural hemorrhage. HISTORY OF PRESENT ILLNESS: 66-year-old gentleman who was admitted to the psychiatric [facility] three days ago under the Blake Act. Prior to that, he was in [facility] facility recuperating after a traumatic brain injury with a left temporal lobe hemorrhage and small right parietal subdural hemorrhage. This was treated nonsurgically. He was discharged a couple of weeks ago to rehab. At the rehab place three days ago he was using a pair of scissors to cut electrical cords and also pull his teeth and was being very aggressive towards the staff. He has had some difficulty with his speech and confusion and short-term memory loss ever since his traumatic brain injury. According to his power of attorney general, he has had multiple admissions recently over the past couple of months for traumatic brain injury and bleeds related to falls and alcohol abuse. Apparently at this afternoon the patient was found on the floor by the psychiatric nursing staff and was not responsive and was incontinent of his urine and it was felt like he may have had a seizure. He was taken to the CT scanner for the CT scan of the head and which shows a right frontoparietooccipital lobe acute on chronic subdural hemorrhage measuring about 17 mm in thickness with about 4 mm [id number] shift. This has progressed since his previous CT scan a couple weeks ago. He was transferred to the intensive care unit and I was contacted by the [facility] celebrity services. The patient is starting to respond more and is now awake, although is confused and moving all four extremities, although less spontaneous on the left side. He is starting to verbalize also whereas in the psychiatric [facility] he was unresponsive with contractures and spasms. PAST MEDICAL HISTORY: 1. Alcohol abuse with cirrhosis. 2. COPD on oxygen 2 liters nasal cannula continuous. 3. Wernicke-Korsakoff syndrome. 4. Traumatic brain injury, left temporal hemorrhage and right parietal subdural hemorrhage. 5. Diabetes mellitus. 6. COPD. MEDICATIONS: 1. Insulin. 2. Metformin 500 milligrams twice a day. 3. Two liters nasal cannula oxygen. 4. Seroquel 25 milligrams twice a day. 5. Thiamine 100 milligrams daily. 6. Folic acid 1 milligram daily. ALLERGIES: SULFA. SOCIAL HISTORY: He has a history of heavy alcohol abuse and also smokes cigarettes. He is and resides in a correction. He does have a power of attorney general whom we were able to contact over the phone and also obtained some of the history. REVIEW OF SYSTEMS: His review of systems is unobtainable from the patient as the patient is not verbalizing very comprehensively although he does state his name. FAMILY HISTORY Unremarkable. LABORATORY STUDIES: Laboratory studies from 08/29/2017: Sodium 136, potassium 4.0, BUN 10, creatinine 0.56, glucose 108. White blood cell count 5.7, hemoglobin 13.1, platelet count 91,000. There is no PT or INR. PHYSICAL EXAMINATION: VITAL SIGNS: Temperature 97.1, pulse is 70, respiratory rate is 16, blood pressure 112/61, oxygen saturation is 92%. HEAD: I do not appreciate any recent traumatic injury to the scalp. Negative meraz or raccoon sign. NECK: The neck is supple. CHEST: Clear bilaterally. HEART: Regular rate and rhythm. Normal S1-S2. ABDOMEN: Abdomen soft and nontender. Positive bowel sounds. No guarding or rigidity. EXTREMITIES: No deformity or edema. SKIN: No obvious breakdown of the scalp or torso or extremities with no rash. NEUROLOGICAL EXAMINATION: He is awake. Pupils are equal 4 mm reactive down to 2. His face appears to be symmetric. He is moving all four extremities, although slightly weak on the left side. Equivocal Babinski. He will verbalize a few words but no follow commands and is not oriented to location or date. He is very agitated and restless and appears to be recovering from a postictal state. IMPRESSION: 1. Right 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 There is also resolving left temporal lobe hemorrhage and encephalomalacia from his previous injury. 2. Seizure likely related to the traumatic brain injury versus alcohol withdrawal. 3. Heavy alcohol abuse with associated cirrhosis. 4. Thrombocytopenia likely related to alcohol abuse. 5. COPD on continuous home oxygen. PLAN: 1. The patient will be monitored closely in the surgical intensive care unit. 2. His head of bed will be kept elevated at 30 degrees. 3. Platelet count transfusion will be undertaken to correct his thrombocytopenia. 4. His PT and INR will also be checked and if need be administer vitamin K and fresh frozen plasma. 5. Sequential compression devices will be used for DVT prophylaxis as chemical prophylaxis is contraindicated given the intracranial hemorrhage. I discussed the procedure of a right craniotomy for acute and chronic subdural hemorrhage evacuation along with lysis of subdural membranes with the patient's power of attorney general. We also discussed the likelihood that we may need to intubate and sedate him given his agitation and risk of any further seizures and alcohol withdrawal. She requests that we proceed with any intervention that we deem appropriate and understands that his risk for complications is in the moderate to high range given his comorbidities. Accordingly we will optimize his medical condition prior to proceeding with any surgical intervention. His condition, I would say, is critical with a guarded prognosis. Discussed with the vp celebrity services, Dr. Cameron. MD HYACINTH Marcus/VALERIY /3:38 PM /4:17 PM
[2017-08-30] MEDS ORDERED: LABETALOL HCL 100 MG/20 ML VIAL IV PUSH PRN (17:15)
[2017-08-30] MEDS ORDERED: niCARdipine INJ 25 MG in SODIUM CHLOR 0.9% 250 ML INJ 240 ML IV PRN (17:15)
[2017-08-30] MEDS ORDERED: niCARdipine 25 MG/NS 250 ML Vial2Bag or IV room IV PRN ×2 (17:30)
[2017-08-30] MEDS: MIDAZOLAM HCL 2 MG/2 ML VIAL IV PUSH PRN (17:37)
--- NOTE | 2017-08-30 17:43 | PD.PROCEDR ---
Procedure Note Procedure INTUBATION: The patient was put in optimal position for the procedure. Rapid sequence intubation was initiated by me using 20 milligrams of etomidate IV and 5 milligrams of Versed IV,a nd 50 mg IV Rocuronium. DL with Mac 4 blade Grade 1 view. The patient was intubated with a 8 cuffed endotracheal tube. Tube placement was confirmed by visualization of the tube and balloon passing through the cords, capnometry and subsequent chest x-ray. Breath sounds were equal and well aerated bilaterally postintubation. No breath sounds over stomach. Patient tolerated procedure well. Daria Cameron MD Aug 30, 2017 17:43
[2017-08-30] MEDS: SODIUM CHLOR 0.9% 1000 ML INJ 1,000 ML IV SCH ×2 (17:44→23:50)
[2017-08-30] MEDS ORDERED: MIDAZOLAM HCL 5 MG/5 ML VIAL IV ONE (18:15)
[2017-08-30] MEDS ORDERED: LORazepam 2 MG/ML VIAL IM ONE (18:15)
[2017-08-30] MEDS ORDERED: ETOMIDATE 20 MG/10 ML VIAL IV PUSH ONE (18:15)
[2017-08-30] MEDS ORDERED: ROCURONIUM INJ 50 MG/5 ML VIAL IV ONE (18:15)
[2017-08-30] MEDS: SODIUM CHLORIDE 23.4% INJ 188 MEQ in SODIUM CHLOR 0.9% 1000 ML INJ 1,000 ML IV SCH (18:20)
[2017-08-30 18:27] LABS: BLOOD GAS CARBOXYHEMOGLOBIN 1.6 % (0-4); BLOOD GAS HCO3 26 mmol/L (22-26); BLOOD GAS METHEMOGLOBIN 0.7 % (0-2); BLOOD GAS O2 HGB SATURATION 97 % (90-100); BLOOD GAS OXYGEN CONTENT 16.6 Vol % (12.0-20.0); BLOOD GAS PCO2 42 mmHg (38-42); BLOOD GAS PO2 125 mmHg (61-120); BLOOD GAS TOTAL HGB 12.1 G/DL (12.0-16.0); CRITICAL VALUE NO; OXYGEN DEVICE VENTILATOR; TEMP CORR TO 98.6
[2017-08-30 18:29] LABS: DRAW SITE LT RADIAL; FIO2 50 %; NUMBER OF ARTERIAL PUNCTURES 1; STAT NO; ULNAR PULSE PRESENT
[2017-08-30 18:34] LABS: AUTOMATED NEUTROPHIL # 8.3 TH/MM3 (1.8-7.7); BASOPHIL # 0.1 TH/MM3 (0-0.2); BASOPHIL % 0.5 % (0.0-2.0); EOSINOPHIL % 0.1 % (0.0-4.0); HEMATOCRIT 36.7 % (39.0-51.0); LYMPH % 5.4 % (9.0-44.0); LYMPHOCYTE # 0.5 TH/MM3 (1.0-4.8); MEAN CELL VOLUME 92.9 FL (80.0-100.0); MEAN CORPUSCULAR HEMOGLOBIN 31.6 PG (27.0-34.0); MONO % 4.8 % (0.0-8.0); NEUT % 89.2 % (16.0-70.0); PLATELET COUNT 76 TH/MM3 (150-450); RED BLOOD COUNT 3.95 MIL/MM3 (4.50-5.90); RED CELL DISTRIBUTION WIDTH 15.6 % (11.6-17.2); WHITE BLOOD COUNT 9.3 TH/MM3 (4.0-11.0)
[2017-08-30 18:38] LABS: HEMO FLAGS AUTO DIFF
[2017-08-30 18:55] LABS: APTT (PATIENT) 27.8 SEC (24.3-30.1); INTERNATIONAL NORMALIZED RATIO 1.2 RATIO; PROTHROMBIN TIME - PATIENT 13.2 SEC (9.8-11.6)
[2017-08-30 19:06] LABS: BICARBONATE 29.5 MEQ/L (21.0-32.0); POTASSIUM 3.6 MEQ/L (3.5-5.1)
[2017-08-30 19:33] LABS: BANDS 2 % (0-6); NEUTROPHIL # MANUAL DIFF 8.4 TH/MM3 (1.8-7.7); PLATELET ESTIMATE SMEAR LOW (NORMAL); PLATELET MORPHOLOGY NORMAL (NORMAL); POLYS (SEG NEUTROPHILS) 88 % (16-70); WBC DIFF SAMPLE 100
[2017-08-30 19:34] LABS: SCAN/DIFF FINAL DIFF MANUAL
[2017-08-30] MEDS: FAMOTIDINE 20 MG/2 ML VIAL IV PUSH SCH (20:49)
[2017-08-30] MEDS: SODIUM CHLORIDE 0.9% FLUSH 10 ML FLUSH IV FLUSH SCH (20:49)
[2017-08-30] MEDS: CHLORHEXIDINE 0.12% (ORAL KIT) 15 ML CUP MT SCH (20:49)
[2017-08-30] MEDS: DOCUSATE SODIUM 50 MG/SENNA 8.6 MG TAB PO SCH (20:51)
[2017-08-30] MEDS: THIAMINE INJ 100 MG in SODIUM CHLORIDE 0.9% INJ 100 ML IV SCH (21:30)
[2017-08-30] MEDS: CHLORHEXIDINE GLUCONATE 2 % 1 PACK (2 CLOTHS) TOP SCH (23:50)
[2017-08-31] VITALS (20 sets, daily range): BP systolic 95–145; BP diastolic 55–67; PULSE 78–96; RESP 16–26; TEMP 98.5–102; O2SAT 100
[2017-08-31] MEDS: ACETAMINOPHEN 325 MG TAB PO PRN (02:15)
[2017-08-31] MEDS ORDERED: diphenhydrAMINE HCL 50 MG/ML VIAL IV PRN (03:45)
[2017-08-31] MEDS: SODIUM CHLOR 0.9% 1000 ML INJ 1,000 ML IV SCH ×3 (05:20→18:40)
[2017-08-31] MEDS: PHENYTOIN INJ 100 MG/2 ML VIAL IV PUSH SCH ×3 (05:26→21:09)
[2017-08-31] MEDS: PROPOFOL 1000 MG/100 ML INJ 100 ML IV PRN ×2 (05:26→15:57)
[2017-08-31 06:19] LABS: HEMATOCRIT 34.5 % (39.0-51.0); MEAN CELL VOLUME 94.6 FL (80.0-100.0); MEAN CORPUSCULAR HEMOGLOBIN 31.5 PG (27.0-34.0); MEAN CORPUSCULAR HGB CONC 33.3 % (32.0-36.0); PLATELET COUNT 84 TH/MM3 (150-450); RED BLOOD COUNT 3.64 MIL/MM3 (4.50-5.90); RED CELL DISTRIBUTION WIDTH 15.8 % (11.6-17.2); WHITE BLOOD COUNT 8.2 TH/MM3 (4.0-11.0)
[2017-08-31 06:24] LABS: REVIEW FLAG FINAL
[2017-08-31 06:55] LABS: ANION GAP 7 MEQ/L (5-15); AST (GOT) 25 U/L (15-37); BICARBONATE 28.1 MEQ/L (21.0-32.0); BLOOD UREA NITROGEN 13 MG/DL (7-18); CHLORIDE 106 MEQ/L (98-107); GLOMERULAR FILTRATION RATE 124 ML/MIN (>89); MAGNESIUM 1.7 MG/DL (1.5-2.5); POTASSIUM 3.6 MEQ/L (3.5-5.1); SODIUM (NA) 141 MEQ/L (136-145)
[2017-08-31 07:03] LABS: ALKALINE PHOSPHATASE 66 U/L (45-117); ALT (GPT) 17 U/L (12-78); TOTAL BILIRUBIN ADULT 0.6 MG/DL (0.2-1.0)
[2017-08-31] MEDS ORDERED: BUPIVACAINE/EPINEPHRINE 0.5% PF 30 ML VIAL ONE (07:18)
[2017-08-31] MEDS ORDERED: GELFOAM SIZE 100 ONE (07:18)
[2017-08-31] MEDS ORDERED: THROMBIN (TOPICAL) 5,000 UNIT VIAL ONE (07:18)
[2017-08-31] MEDS ORDERED: GENTAMICIN SULFATE 80 MG/2 ML VIAL ONE (07:19)
[2017-08-31] MEDS: MIDAZOLAM HCL 2 MG/2 ML VIAL IV PUSH PRN ×3 (08:20→17:40)
[2017-08-31] MEDS: DOCUSATE SODIUM 50 MG/SENNA 8.6 MG TAB PO SCH ×2 (09:00→21:00)
[2017-08-31] MEDS: FAMOTIDINE 20 MG/2 ML VIAL IV PUSH SCH ×2 (09:05→21:05)
[2017-08-31] MEDS: CHLORHEXIDINE 0.12% (ORAL KIT) 15 ML CUP MT SCH ×2 (09:08→21:05)
[2017-08-31] MEDS: SODIUM CHLORIDE 0.9% FLUSH 10 ML FLUSH IV FLUSH SCH ×2 (09:09→21:08)
[2017-08-31] MEDS ORDERED: VANCOMYCIN HCL 1000 MG VIAL ONE (09:17)
[2017-08-31] MEDS ORDERED: levETIRAcetam 500 MG/5 ML VIAL IV ONE ×2 (09:17→09:18)
[2017-08-31] MEDS ORDERED: MANNITOL INJ 0 ML ONE (09:18)
--- NOTE | 2017-08-31 11:02 | HHI.CCPN ---
Subjective Remarks/Hospital Course Patient is a 66-year-old white male who was admitted to the psychiatric service under Blake act on 08/27/17. He has history of Wernicke-Korsakoff syndrome, TBI with subdural hematoma, previous TBI with subarachnoid hemorrhage, suicidal ideation, alcohol abuse, COPD and alcohol-induced cirrhosis. Patient was hospitalized here 08/07/17 through 08/23/17 after passing out at a bar and sustaining a traumatic brain injury. At that time he did have bilateral subdural hemorrhages and small bitemporal hemorrhages. Patient was managed conservatively (N/S Dr. Duque) and eventually was discharged to [facility]. Prior to this he was admitted in March 2017 for TBI and subarachnoid hemorrhage. Psych admitting diagnosis was dementia with behavioral disturbances and aggressive behavior towards staff at skilled nursing. Today 08/30/17 a Halicat was called after patient was found on the floor. Apparently patient was in his normal state today a.m.. Nursing staff responded to hearing a thud in his room, patient was found to be lying on the floor with foaming him from his mouth and incontinence to urine. Apparently nursing staff also noted some seizure-like activity. Patient was unresponsive and nonverbal, but eyes open. A stat CT of the head was done which showed increase in size of the acute on chronic subdural hemorrhage now 1.7 cm with mild midline shift. Patient was emergently transferred to the ICU and critical care medicine was consulted. I immediately evaluated the patient. His level of consciousness is improving but he is very agitated. I discussed with Dr. Gonzalez who also evaluated the patient. Because of increase in size of the bleed patient will need evacuation of the subdural hemorrhage. Transfuse 1 unit platelets to correct thrombocytopenia. Due to severe agitation and new increase in bleed patient will be intubated and placed on mechanical ventilation. Dr. Gonzalez has updated the power of dive supervisor was agreeable to intubation and surgical evacuation of the subdural hemorrhage 08/31/17: Remains intubated sedated critically ill. Withdraws 4 extremities. Platelet count above 84 received transfusion today one pack units of platelets in anticipation of or. Dr. Gonzalez planning on evacuation of subdural hemorrhage Objective Vital Signs Date Time Temp Pulse Resp B/P (MAP) Pulse Ox O2 Delivery O2 Flow Rate FiO2 08/31/17 08:00 40 08/31/17 08:00 95 08/31/17 04:00 99.6 16 107/58 (74) 100 08/30/17 15:30 Ventilator Intake and Output 08/31/17 08/31/17 09/01/17 08:00 16:00 00:00 Intake Total 304 ml 1200 ml Output Total 800 ml 350 ml Balance -496 ml 850 ml Result Diagram: 08/31/17 0422 08/31/17 0422 Other Results Laboratory Tests Test 08/30/17 19:10 Blood Gas Puncture Site LT RADIAL Blood Gas Patient Temperature 98.6 Blood Gas HCO3 26 mmol/L (22-26) Blood Gas Base Excess 2.0 mmol/L (-2-2) Blood Gas Oxygen Saturation 97 % (90-100) Arterial Blood pH 7.42 (7.380-7.420) Arterial Blood Partial Pressure CO2 42 mmHg (38-42) Arterial Blood Partial Pressure O2 125 mmHg (61-120) Arterial Blood Oxygen Content 16.6 Vol % (12.0-20.0) Arterial Blood Carboxyhemoglobin 1.6 % (0-4) Arterial Blood Methemoglobin 0.7 % (0-2) Blood Gas Hemoglobin 12.1 G/DL (12.0-16.0) Oxygen Delivery Device VENTILATOR Blood Gas Ventilator Setting Blood Gas Inspired Oxygen 50 % Imaging Ct scan shows 1.7 cm right acute on chronic subdural hemorrhage with mild midline shift and pressure effect on right lateral ventricle Objective Remarks GENERAL: 66-year-old male intubated, sedated SKIN: warm/dry. HEAD: Normocephalic. EYES: Pupils equal and round. No scleral icterus. No injection or drainage. ENT: No nasal bleeding or discharge. Airway patent NECK: Trachea midline. CARDIOVASCULAR: Regular rate and rhythm. Heart sounds normal. RESPIRATORY: No accessory muscle use. Clear to auscultation. GASTROINTESTINAL: Abdomen soft. Nontender. Bowel sounds present. Nondistended. MUSCULOSKELETAL: No obvious deformities. NEUROLOGICAL: Intubated sedated. No eye opening while on sedation. Withdraws all 4 extremities to pain A/P Assessment and Plan ASSESSMENT/PLAN Neuro: Acute on chronic right subdural hemorrhage 1.7 cm with 4 mm midline shift Stable, evolving left intraparenchymal hemorrhage Acute encephalopathy Alcohol dependence Dementia with behavioral disturbances - Follow neuro status. Neurosurgery Dr. Gonzalez - Evacuation of subdural hemorrhage today 11/26 - Start 2% saline at 40 ml. Propofol for sedation and vent synchrony postintubation - Initial GCS more than 10, there was no indication for ICP monitor - Transfuse 1 unit pheresed platelets in view of thrombocytopenia/OR - IV Thiamine. Ativan for seizures - Loaded with Cerebyx 1 g and continue 100 mg every 8 hours. EEG in am - Psych re consult once stable and extubated Cardiovascular: Hypertension, uncontrolled - Labetalol when necessary to keep SBP less than 150 mmHg - Cardene infusion to keep systolic blood pressure less than 150 - Normal saline IV fluid at 120 ml per hour, 2% saline as above Pulmonary: Acute respiratory failure COPD without exacerbation - Intubated due to severe agitation and for airway protection - Assist-control mechanical ventilation, vent bundle - DuoNeb every 6 hours when necessary GI/liver: History of hepatitis C and liver cirrhosis - Nothing by mouth. IV famotidine - Start tube feeds in 24 hours Renal/: - IV hydration, follow intake output, monitor and replete electrolytes, follow BUN/creatinine. ID: - No indication for antibiotics at this time - perioperative antibiotics per Dr. Gonzalez Endocrine: Sliding scale insulin for glycemic control if needed Heme: Mild thrombocytopenia - Follow CBC and coags. Transfuse blood products and vitamin K as needed Prophylaxis: - Pepcid/SCDs. No subcutaneous heparin due to subdural hemorrhage Further recommendations per Dr. Gonzalez Discussed with Dr. Gonzalez CCT 35 MIN excluding procedural time Daria Cameron MD Aug 31, 2017 11:02
--- NOTE | 2017-08-31 11:17 | PD.OP ---
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 endotracheal by Carina Avendano Surgeon: Leighton Gonzalez M.D. Sheet Metal Assembler And Riveter(s): Luc Schmidt Operation and Findings: Informed consent was obtained from the patient's health surrogate. Following initiation of a general endotracheal anesthesia the patient had invasive lines and Mendoza catheter in place along with the sequential compression device. A gram of vancomycin was administered intravenously along with a 500 mg of Keppra and head secured on a horseshoe headrest and turned 30 to the left side. The right frontal and parietal areas shaved and prepped with ChloraPrep and sterilely draped in the usual sterile fashion. A curvilinear incision site was then made after infiltrating the scalp was 0.5% Marcaine with epinephrine solution a skin incision made extending onto the galea. Juarez clips were used at the scalp edges for hemostasis and the flap retracted with hooks. With an automated corn shucker all hole was made and with the craniotome the bone flap elevated. The dura was opened in a cruciate form and subdural hemorrhage under pressure was identified a partially clotted acute and more liquefied chronic blood with loculations noted. Loculations were lysed and the subdural hemorrhage evacuated with the irrigation of the subdural space until the fluid was more clear. The brain remained depressed from the inner table. A subdural drain also placed which was exited through a separate site and secured to the scalp. The dura was approximated using 4 Nurolon interrupted stitches along with the stitches at the craniotomy edges for hemostasis and the bone flap approximated using Miramonte mini plates and central dural tacking stitches were also placed. The galea was then approximated using 2-0 Vicryl Sutures and final scalp closure was with rc. A sterile pressure dressing was then applied and the patient taken back to the intensive care unit. There were no intraoperative complications and all sponge and needle count was correct at the end of the procedure. Estimated blood loss about 50 cc. Leighton Gonzalez MD Aug 31, 2017 11:17
[2017-08-31] MEDS ORDERED: ROCURONIUM INJ 50 MG/5 ML SYRINGE IV PUSH ONE (12:00)
[2017-08-31] MEDS ORDERED: PROPOFOL 200 MG/20 ML AMP IV ONE (12:00)
[2017-08-31] MEDS ORDERED: ePHEDrine/NS 25 MG/5 ML SYR IV ONE (12:00)
[2017-08-31] MEDS ORDERED: PHENYLEPH/NS 1000 MCG/10 ML SYR IV ONE (12:00)
[2017-08-31] MEDS: THIAMINE INJ 100 MG in SODIUM CHLORIDE 0.9% INJ 100 ML IV SCH (12:00)
--- NOTE | 2017-08-31 18:36 | EKG ---
Date Performed: 08/31/2017 Time Performed: 05:28:22 PTAGE: 66 years EKG: Sinus rhythm . Non-specific ST/T wave changes PREVIOUS TRACING : 08/12/2017 12.09 Compared to prior tracing no significant change DOCTOR: Beto Best Interpretating Date/Time 08/31/2017 18:35:18
[2017-08-31] MEDS: SODIUM CHLORIDE 23.4% INJ 188 MEQ in SODIUM CHLOR 0.9% 1000 ML INJ 1,000 ML IV SCH (19:00)
[2017-08-31] MEDS: CHLORHEXIDINE GLUCONATE 2 % 1 PACK (2 CLOTHS) TOP SCH (21:09)
--- NOTE | 2017-08-31 21:26 | EKG ---
Date Performed: 08/31/2017 Time Performed: 08:34:50 PTAGE: 66 years EKG: Sinus rhythm . Baseline wander and artefact in the limb leads. Possibly normal ECG NO PREVIOUS TRACING DOCTOR: Yahir Joseph Interpretating Date/Time 08/31/2017 21:25:21
[2017-09-01] VITALS (19 sets, daily range): BP systolic 101–128; BP diastolic 46–66; PULSE 74–93; RESP 16; TEMP 99.1–100.8; O2SAT 98–100
[2017-09-01 04:11] LABS: AUTOMATED NEUTROPHIL # 5.6 TH/MM3 (1.8-7.7); BASOPHIL # 0.1 TH/MM3 (0-0.2); BASOPHIL % 0.9 % (0.0-2.0); EOSINOPHIL % 0.3 % (0.0-4.0); HEMATOCRIT 30.3 % (39.0-51.0); LYMPH % 9.3 % (9.0-44.0); LYMPHOCYTE # 0.6 TH/MM3 (1.0-4.8); MEAN CELL VOLUME 93.1 FL (80.0-100.0); MEAN CORPUSCULAR HEMOGLOBIN 32.4 PG (27.0-34.0); MEAN CORPUSCULAR HGB CONC 34.8 % (32.0-36.0); MONO % 7.5 % (0.0-8.0); PLATELET COUNT 73 TH/MM3 (150-450); RED BLOOD COUNT 3.26 MIL/MM3 (4.50-5.90); RED CELL DISTRIBUTION WIDTH 15.8 % (11.6-17.2); WHITE BLOOD COUNT 6.9 TH/MM3 (4.0-11.0)
[2017-09-01 04:15] LABS: HEMO FLAGS AUTO DIFF
--- NOTE | 2017-09-01 04:54 | RADRPT ---
EXAM DATE/TIME: 09/01/2017 04:10 [facility] COMPARISON: CT BRAIN W/O CONTRAST, August 07, 2017, 4:17. CT BRAIN W/O CONTRAST, August 30, 2017, 14:15. INDICATIONS : Post op. Evaluate subdural hematoma. RADIATION DOSE: 56.35 CTDIvol (mGy) MEDICAL HISTORY : Cardiovascular disease. Seizures. Hepatitis C. SURGICAL HISTORY : Craniotomy. ENCOUNTER: Initial ACUITY: 1 day PAIN SCALE: Non-responsive LOCATION: cranial TECHNIQUE: Multiple contiguous axial images were obtained of the head. Using automated exposure control and adj ustment of the mA and/or kV according to patient size, radiation dose was kept as low as reasonably a chievable to obtain optimal diagnostic quality images. DICOM format image data is available electro nically for review and comparison. FINDINGS: CEREBRUM: The patient is status post placement of a right subdural drain. There is mild residual subdural fluid , hemorrhage, and air seen. The mass effect from the previously seen subdural collection has signific antly improved. There is a larger area of hemorrhage in the left temporal lobe now measuring at least 6.0 x 3.1 cm. On the prior exam, there is a smaller area of hemorrhage in the left temporal lobe. Th is is surrounded by low density. There is 3 mm above to right midline shift. There is a small area of hemorrhage seen in the anterior inferior right temporal lobe measuring 1.4 cm. There is a small foca l left subdural hemorrhage measuring 5 mm at the left occipital and posterior parietal regions. POSTERIOR FOSSA: The cerebellum and brainstem are intact. The 4th ventricle is midline. The cerebellopontine angle i s unremarkable. EXTRACRANIAL: The visualized portion of the orbits is intact. There is postoperative change in the right temporal s calp. There is mucosal thickening of the right maxillary sinus. SKULL: The patient is status post right craniotomy for placement of a right subdural drain. CONCLUSION: 1. Status post placement of a right subdural drain with improvement in the right subdural hemorrhage. There is a small amount of residual fluid, hemorrhage and air are seen. 2. Enlargement of the previously seen left temporal hematoma now measuring up to 6 cm. There is 3 mm of [id number]-st-[id number] midline shift. 3. New small 1.4 cm area of focal hemorrhage in the anterior inferior right temporal lobe. 4. Small posterior left subdural hemorrhage. The ICU was called and Laila, the patient's nurse was notified of these findings. Rakesh Henry MD on September 01, 2017 at 4:38 Board Certified Radiologist. This report was verified electronically.
[2017-09-01 05:33] LABS: SCAN/DIFF AUTO DIFF CONFIRMED
[2017-09-01 05:34] LABS: PLATELET ESTIMATE SMEAR LOW (NORMAL); PLATELET MORPHOLOGY NORMAL (NORMAL)
[2017-09-01] MEDS: PHENYTOIN INJ 100 MG/2 ML VIAL IV PUSH SCH ×3 (05:47→22:40)
[2017-09-01] MEDS: CHLORHEXIDINE 0.12% (ORAL KIT) 15 ML CUP MT SCH ×2 (07:40→20:52)
[2017-09-01] MEDS: SODIUM CHLOR 0.9% 1000 ML INJ 1,000 ML IV SCH ×2 (08:00→22:55)
[2017-09-01] MEDS: FAMOTIDINE 20 MG/2 ML VIAL IV PUSH SCH ×2 (08:01→20:52)
[2017-09-01] MEDS: SODIUM CHLORIDE 0.9% FLUSH 10 ML FLUSH IV FLUSH SCH ×2 (08:01→20:52)
[2017-09-01] MEDS: THIAMINE INJ 100 MG in SODIUM CHLORIDE 0.9% INJ 100 ML IV SCH (08:02)
[2017-09-01] MEDS ORDERED: diphenhydrAMINE HCL 50 MG/ML VIAL IV STA (08:47)
[2017-09-01] MEDS ORDERED: DEXAMETHASONE SOD PHOS 4 MG/ML VIAL IV PUSH ONE (09:00)
[2017-09-01] MEDS: DOCUSATE SODIUM 50 MG/SENNA 8.6 MG TAB PO SCH ×2 (09:00→20:53)
--- NOTE | 2017-09-01 09:53 | HHI.NSPN ---
(Bhaskar Bazan) History Chief Complaint: Intubated and sedated s/p right crani for SDH. (Bhaskar Bazan) Interval History 66-year-old gentleman who was admitted to the [facility] three days ago under the Blake Act. Prior to that, he was in [facility] facility recuperating after a traumatic brain injury with a left temporal lobe hemorrhage and small right parietal subdural hemorrhage. This was treated nonsurgically. He was discharged a couple of weeks ago to rehab. At the rehab place three days ago he was using a pair of scissors to cut electrical cords and also pull his teeth and was being very aggressive towards the staff. He has had some difficulty with his speech and confusion and short-term memory loss ever since his traumatic brain injury. According to his power of immigration attorney, he has had multiple admissions recently over the past couple of months for traumatic brain injury and bleeds related to falls and alcohol abuse. Apparently at this afternoon the patient was found on the floor by the psychiatric nursing staff and was not responsive and was incontinent of his urine and it was felt like he may have had a seizure. He was taken to the CT scanner for the CT scan of the head and which shows a right frontoparietooccipital lobe acute on chronic subdural hemorrhage measuring about 17 mm in thickness with about 4 mm [id number] shift. This has progressed since his previous CT scan a couple weeks ago. He was transferred to the intensive care unit and I was contacted by the preschool teacher assistant. The patient is starting to respond more and is now awake, although is confused and moving all four extremities, although less spontaneous on the left side. He is starting to verbalize also whereas in the psychiatric [facility] he was unresponsive with contractures and spasms. 09/01/17: Pt sedated on Diprivan. Not opening eyes. Pupils 3mm bilaterally reactive bilaterally. Withdraws all 4 extremities to pain. (Bhaskar Bazan) System Review Comments Not able to obtain given level of alertness. (Bhaskar Bazan) Exam Results Vital Signs Date Time Temp Pulse Resp B/P (MAP) Pulse Ox O2 Delivery O2 Flow Rate FiO2 09/01/17 08:53 99 30 09/01/17 08:00 88 09/01/17 08:00 100.0 16 128/51 (76) 08/30/17 15:30 Ventilator Intake and Output 09/01/17 09/01/17 09/02/17 08:00 16:00 00:00 Output Total 2470 ml Balance -2470 ml (Bhaskar Bazan) Physical Examination General: Pt Sedated on Diprivan with stable vitals. Eyes: Pupils 3mm bilaterally reactive bilaterally. Sclera anicteric. Resp: Intubated. CTA bilaterally Heart: NSR no murmurs. Abd: Soft positive bs Skin: Head bandaged with ROMEO drain in place. Muscle: Withdraws all 4 extremities to pain Neuro: Pt sedated on Diprivan. Not following commands. Pupils 3mm bilaterally reactive bilaterally. withdraws extremities to pain. (Bhaskar Bazan) Lab, Micro, Other Results Last Impressions Chest X-Ray 08/30/17 0000 Signed Impressions: Service Date/Time: Wednesday, August 30, 2017 15:51 - CONCLUSION: ET tube in good position. Anuel Brennan MD Laboratory Tests Test 08/31/17 11:30 09/01/17 04:00 09/01/17 09:22 Urine Occult Blood NEG White Blood Count 6.9 TH/MM3 Red Blood Count 3.26 MIL/MM3 Hemoglobin 10.6 GM/DL Hematocrit 30.3 % Mean Corpuscular Volume 93.1 FL Mean Corpuscular Hemoglobin 32.4 PG Mean Corpuscular Hemoglobin Concent 34.8 % Red Cell Distribution Width 15.8 % Platelet Count 73 TH/MM3 Mean Platelet Volume 7.8 FL Neutrophils (%) (Auto) 82.0 % Lymphocytes (%) (Auto) 9.3 % Monocytes (%) (Auto) 7.5 % Eosinophils (%) (Auto) 0.3 % Basophils (%) (Auto) 0.9 % Neutrophils # (Auto) 5.6 TH/MM3 Lymphocytes # (Auto) 0.6 TH/MM3 Monocytes # (Auto) 0.5 TH/MM3 Eosinophils # (Auto) 0.0 TH/MM3 Basophils # (Auto) 0.1 TH/MM3 CBC Comment AUTO DIFF Differential Comment AUTO DIFF CONFIRMED Platelet Estimate LOW Platelet Morphology Comment NORMAL Phenytoin (Dilantin) Level 9.9 MCG/ML (Bhaskar Bazan) Medical Decision Making Impression and Plan A: 66 y/o M s/p right 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 There is also resolving left temporal lobe hemorrhage and encephalomalacia from his previous injury. 2. Seizure likely related to the traumatic brain injury versus alcohol withdrawal. 3. Heavy alcohol abuse with associated cirrhosis. 4. Thrombocytopenia likely related to alcohol abuse. 5. COPD on continuous home oxygen. PLAN: Continue with close neuro checks Continue to monitor labs especially his thrombocytopenia. Continue with critical care. Dr. Gonzalez discussed care plan with RN. (Bhaskar Bazan) Attending Statement The exam, history, and the medical decision-making described in the above note were completed with the assistance of the mid-level provider. I reviewed and agree with the findings presented. I attest that I had a [id number] encounter with the patient on the same day, and personally performed and documented my assessment and findings in the medical record. Follow-up CT scan the head this morning with evacuated right-sided subdural hemorrhage along with midline shift although the left temporal lobe hemorrhage has progressed without any significant mass effect. We'll transfuse additional platelets and continue with supportive care. Discussed with the health proxy at the bedside as well as preschool teacher assistant Dr. Cameron. (Leighton Gonzalez MD) Bhaskar Bazan Sep 01, 2017 09:53 Leighton Gonzalez MD Sep 01, 2017 17:01
[2017-09-01 10:06] LABS: INTERNATIONAL NORMALIZED RATIO 1.3 RATIO; PROTHROMBIN TIME - PATIENT 14.1 SEC (9.8-11.6)
--- NOTE | 2017-09-01 13:04 | HHI.CCPN ---
Subjective Remarks/Hospital Course Patient is a 66-year-old white male who was admitted to the psychiatric service under Blake act on 08/27/17. He has history of Wernicke-Korsakoff syndrome, TBI with subdural hematoma, previous TBI with subarachnoid hemorrhage, suicidal ideation, alcohol abuse, COPD and alcohol-induced cirrhosis. Patient was hospitalized here 08/07/17 through 08/23/17 after passing out at a bar and sustaining a traumatic brain injury. At that time he did have bilateral subdural hemorrhages and small bitemporal hemorrhages. Patient was managed conservatively (N/S Dr. Duque) and eventually was discharged to [facility]. Prior to this he was admitted in March 2017 for TBI and subarachnoid hemorrhage. Psych admitting diagnosis was dementia with behavioral disturbances and aggressive behavior towards staff at [facility]. Today 08/30/17 a [facility] was called after patient was found on the floor. Apparently patient was in his normal state today a.m.. Nursing staff responded to hearing a thud in his room, patient was found to be lying on the floor with foaming him from his mouth and incontinence to urine. Apparently nursing staff also noted some seizure-like activity. Patient was unresponsive and nonverbal, but eyes open. A stat CT of the head was done which showed increase in size of the acute on chronic subdural hemorrhage now 1.7 cm with mild midline shift. Patient was emergently transferred to the ICU and critical care medicine was consulted. I immediately evaluated the patient. His level of consciousness is improving but he is very agitated. I discussed with Dr. Gonzalez who also evaluated the patient. Because of increase in size of the bleed patient will need evacuation of the subdural hemorrhage. Transfuse 1 unit platelets to correct thrombocytopenia. Due to severe agitation and new increase in bleed patient will be intubated and placed on mechanical ventilation. Dr. Gonzalez has updated the power of county attorney was agreeable to intubation and surgical evacuation of the subdural hemorrhage 08/31/17: Remains intubated sedated critically ill. Withdraws 4 extremities. Platelet count above 84 received transfusion today one pack units of platelets in anticipation of or. Dr. Gonzalez planning on evacuation of subdural hemorrhage 09/01/17: s/p Right craniotomy for subdural hemorrhage evacuation. CT of the head shows right subdural drain with improvement in the right subdural hemorrhage, small amount of residual hemorrhage and pneumocephalus. There is also enlargement of left temporal hematoma now measuring up to 6 cm, 3 mm of left-to- right midline shift. New 1.4 cm area of focal hemorrhage in the anterior inferior right temporal lobe. Objective Vital Signs Date Time Temp Pulse Resp B/P (MAP) Pulse Ox O2 Delivery O2 Flow Rate FiO2 09/01/17 12:38 100 30 09/01/17 12:00 99.9 77 16 128/50 (76) 08/30/17 15:30 Ventilator Intake and Output 09/01/17 09/01/17 09/02/17 08:00 16:00 00:00 Output Total 2470 ml Balance -2470 ml Result Diagram: 09/01/17 0400 08/31/17 0422 Other Results Microbiology Date/Time Source Procedure Growth Status 08/30/17 17:45 Sputum Endotracheal Gram Stain - Final Complete 08/30/17 17:45 Sputum Endotracheal Sputum Culture - Final HEAVY GROWTH NORMAL RESPIRATORY JOSE Complete Imaging Ct scan shows 1.7 cm right acute on chronic subdural hemorrhage with mild midline shift and pressure effect on right lateral ventricle Objective Remarks GENERAL: 66-year-old male intubated, sedated SKIN: warm/dry. HEAD: Normocephalic. EYES: Pupils equal and round. No scleral icterus. No injection or drainage. R drain with sanguinous drainage ENT: No nasal bleeding or discharge. orotracheally intubated NECK: Trachea midline. CARDIOVASCULAR: Regular rate and rhythm. Heart sounds normal. RESPIRATORY: Air entry equal bilaterally. Clear to auscultation. GASTROINTESTINAL: Abdomen soft. Nontender. Bowel sounds present. Nondistended. MUSCULOSKELETAL: No obvious deformities. NEUROLOGICAL: Intubated sedated. No eye opening while on sedation. Moves extremities purposefully localizes to pain. KIM Urinary Catheter: Yes Assessment to: Continue Vascular Central Line Catheter: Yes Assessment to: Continue A/P Assessment and Plan ASSESSMENT/PLAN Neuro: Acute on chronic right subdural hemorrhage 1.7 cm with 4 mm midline shift Stable, evolving left intraparenchymal hemorrhage Acute encephalopathy Alcohol dependence Dementia with behavioral disturbances - Follow neuro status. Neurosurgery Dr. Gonzalez - s/p Evacuation of subdural hemorrhage 08/31 - F/U CT head shows expansion L parenchymal hemorrhage, but good evacuation R SDH - 2% saline at 40 ml. Propofol for sedation and vent synchrony postintubation - Transfuse 2 unit pheresed platelets in view of thrombocytopenia and ICH - IV Thiamine. Ativan for seizures - Loaded with Cerebyx 1 g and continue 100 mg every 8 hours. EEG in am - Psych re consult once stable and extubated Cardiovascular: Hypertension, uncontrolled - Labetalol when necessary to keep SBP less than 150 mmHg - Cardene infusion to keep systolic blood pressure less than 150 - Normal saline IV fluid at 120 ml per hour, 2% saline as above Pulmonary: Acute respiratory failure COPD without exacerbation - Intubated due to severe agitation and for airway protection - Assist-control mechanical ventilation, vent bundle - DuoNeb every 6 hours when necessary - Start SBT once mental status GI/liver: History of hepatitis C and liver cirrhosis - Nothing by mouth. IV famotidine - Start tube feeds with Jevity Renal/: - IV hydration, follow intake output, monitor and replete electrolytes, follow BUN/creatinine. ID: - No indication for antibiotics at this time - perioperative antibiotics per Dr. Gonzalez Endocrine: - Sliding scale insulin for glycemic control if needed Heme: Mild thrombocytopenia - Follow CBC and coags. Transfuse blood products and vitamin K as needed - 2 U platelets today Prophylaxis: - Pepcid/SCDs. No subcutaneous heparin due to subdural hemorrhage Further recommendations per Dr. Gonzalez Discussed with Dr. Gonzalez CCT 35 MIN excluding procedural time Daria Cameron MD Sep 01, 2017 13:04
[2017-09-01 14:04] LABS: AUTOMATED NEUTROPHIL # 7.4 TH/MM3 (1.8-7.7); BASOPHIL % 0.2 % (0.0-2.0); EOSINOPHIL % 0.1 % (0.0-4.0); HEMATOCRIT 29.3 % (39.0-51.0); HEMO FLAGS DIFF FINAL; LYMPH % 3.7 % (9.0-44.0); LYMPHOCYTE # 0.3 TH/MM3 (1.0-4.8); MEAN CELL VOLUME 93.2 FL (80.0-100.0); MEAN CORPUSCULAR HEMOGLOBIN 31.3 PG (27.0-34.0); MEAN CORPUSCULAR HGB CONC 33.6 % (32.0-36.0); MONO % 4.6 % (0.0-8.0); NEUT % 91.4 % (16.0-70.0); PLATELET COUNT 110 TH/MM3 (150-450); RED BLOOD COUNT 3.15 MIL/MM3 (4.50-5.90); RED CELL DISTRIBUTION WIDTH 15.6 % (11.6-17.2); WHITE BLOOD COUNT 8.1 TH/MM3 (4.0-11.0)
[2017-09-01 14:12] LABS: INTERNATIONAL NORMALIZED RATIO 1.2 RATIO; PROTHROMBIN TIME - PATIENT 13.4 SEC (9.8-11.6)
[2017-09-01 14:28] LABS: ALKALINE PHOSPHATASE 63 U/L (45-117); ALT (GPT) 12 U/L (12-78); ANION GAP 8 MEQ/L (5-15); AST (GOT) 20 U/L (15-37); BICARBONATE 24.2 MEQ/L (21.0-32.0); CHLORIDE 107 MEQ/L (98-107); GLOMERULAR FILTRATION RATE 187 ML/MIN (>89); MAGNESIUM 1.7 MG/DL (1.5-2.5); POTASSIUM 2.9 MEQ/L (3.5-5.1); SODIUM (NA) 139 MEQ/L (136-145); TOTAL BILIRUBIN ADULT 1.8 MG/DL (0.2-1.0)
[2017-09-01 14:34] LABS: BLOOD UREA NITROGEN 5 MG/DL (7-18)
[2017-09-01] MEDS: POTASSIUM CHLOR 20 MEQ PREMIX 100 ML IV PRN ×4 (15:13→21:49)
[2017-09-01] MEDS: PROPOFOL 1000 MG/100 ML INJ 100 ML IV PRN (15:52)
--- NOTE | 2017-09-01 18:59 | MG ---
cc: PAUL GALICIA MD Lab No: [id number] Date: 09/01/17 Age: 66 Sex: M Race: DATE OF 1950 HISTORY A 66-year-old patient, intubated, history of right subdural hematoma. DESCRIPTION 1-3 Hz generalized delta activity. Pseudoperiodic delta activity occurring at times. No driving with photic stimulation. Single lead EKG showing some irregularity. Occasional __ activity in the right temporal region. Occasional small sharp transients. Theta burst EPOC 121. INTERPRETATION Moderate to severe encephalopathy. No active seizures. Clinical correlation. Paul Galicia MD MG/EO /6:20 PM /6:51 PM
[2017-09-01] MEDS: SODIUM CHLORIDE 23.4% INJ 188 MEQ in SODIUM CHLOR 0.9% 1000 ML INJ 1,000 ML IV SCH (22:38)
[2017-09-02] VITALS (17 sets, daily range): BP systolic 107–129; BP diastolic 50–68; PULSE 66–102; RESP 16; TEMP 99–100.2; O2SAT 97–100
[2017-09-02] MEDS: PROPOFOL 1000 MG/100 ML INJ 100 ML IV PRN ×3 (01:15→21:54)
[2017-09-02] MEDS: CHLORHEXIDINE GLUCONATE 2 % 1 PACK (2 CLOTHS) TOP SCH (04:12)
[2017-09-02 04:34] LABS: AUTOMATED NEUTROPHIL # 3.9 TH/MM3 (1.8-7.7); BASOPHIL # 0.1 TH/MM3 (0-0.2); EOSINOPHIL # 0.1 TH/MM3 (0-0.4); HEMATOCRIT 26.7 % (39.0-51.0); LYMPH % 14.9 % (9.0-44.0); LYMPHOCYTE # 0.8 TH/MM3 (1.0-4.8); MEAN CELL VOLUME 93.2 FL (80.0-100.0); MEAN CORPUSCULAR HEMOGLOBIN 31.9 PG (27.0-34.0); MEAN CORPUSCULAR HGB CONC 34.2 % (32.0-36.0); MONO % 10.4 % (0.0-8.0); NEUT % 72.7 % (16.0-70.0); PLATELET COUNT 95 TH/MM3 (150-450); RED BLOOD COUNT 2.86 MIL/MM3 (4.50-5.90); RED CELL DISTRIBUTION WIDTH 15.7 % (11.6-17.2); WHITE BLOOD COUNT 5.3 TH/MM3 (4.0-11.0)
[2017-09-02 04:38] LABS: HEMO FLAGS AUTO DIFF
[2017-09-02 04:58] LABS: ANION GAP 8 MEQ/L (5-15); AST (GOT) 13 U/L (15-37); BICARBONATE 22.6 MEQ/L (21.0-32.0); BLOOD UREA NITROGEN 5 MG/DL (7-18); CHLORIDE 111 MEQ/L (98-107); GLOMERULAR FILTRATION RATE 234 ML/MIN (>89); MAGNESIUM 1.7 MG/DL (1.5-2.5); SODIUM (NA) 142 MEQ/L (136-145)
[2017-09-02 05:02] LABS: ALKALINE PHOSPHATASE 55 U/L (45-117); ALT (GPT) 15 U/L (12-78); TOTAL BILIRUBIN ADULT 0.4 MG/DL (0.2-1.0)
[2017-09-02] MEDS: PHENYTOIN INJ 100 MG/2 ML VIAL IV PUSH SCH ×3 (06:09→21:21)
[2017-09-02] MEDS: POTASSIUM CHLOR 20 MEQ PREMIX 100 ML IV PRN ×5 (07:36→15:20)
[2017-09-02 07:55] LABS: PLATELET ESTIMATE SMEAR LOW (NORMAL); PLATELET MORPHOLOGY NORMAL (NORMAL)
[2017-09-02 07:56] LABS: SCAN/DIFF AUTO DIFF CONFIRMED
[2017-09-02] MEDS: CHLORHEXIDINE 0.12% (ORAL KIT) 15 ML CUP MT SCH ×2 (08:00→21:17)
[2017-09-02] MEDS: THIAMINE INJ 100 MG in SODIUM CHLORIDE 0.9% INJ 100 ML IV SCH (08:02)
[2017-09-02] MEDS: FAMOTIDINE 20 MG/2 ML VIAL IV PUSH SCH ×2 (08:02→21:17)
[2017-09-02] MEDS: SODIUM CHLORIDE 0.9% FLUSH 10 ML FLUSH IV FLUSH SCH ×2 (08:02→21:17)
--- NOTE | 2017-09-02 10:02 | HHI.NSPN ---
(Bhaskar Bazan) History Chief Complaint: Intubated and sedated s/p right crani for SDH. (Bhaskar Bazan) Interval History 66-year-old gentleman who was admitted to the psychiatric [facility] three days ago under the Blake Act. Prior to that, he was in [facility] facility recuperating after a traumatic brain injury with a left temporal lobe hemorrhage and small right parietal subdural hemorrhage. This was treated nonsurgically. He was discharged a couple of weeks ago to rehab. At the rehab place three days ago he was using a pair of scissors to cut electrical cords and also pull his teeth and was being very aggressive towards the staff. He has had some difficulty with his speech and confusion and short-term memory loss ever since his traumatic brain injury. According to his power of tax associate attorney, he has had multiple admissions recently over the past couple of months for traumatic brain injury and bleeds related to falls and alcohol abuse. Apparently at this afternoon the patient was found on the floor by the psychiatric nursing staff and was not responsive and was incontinent of his urine and it was felt like he may have had a seizure. He was taken to the CT scanner for the CT scan of the head and which shows a right frontoparietooccipital lobe acute on chronic subdural hemorrhage measuring about 17 mm in thickness with about 4 mm fclse-uj-ifju shift. This has progressed since his previous CT scan a couple weeks ago. He was transferred to the intensive care unit and I was contacted by the equine internship. The patient is starting to respond more and is now awake, although is confused and moving all four extremities, although less spontaneous on the left side. He is starting to verbalize also whereas in the psychiatric [facility] he was unresponsive with contractures and spasms. 09/01/17: Pt sedated on Diprivan. Not opening eyes. Pupils 3mm bilaterally reactive bilaterally. Withdraws all 4 extremities to pain. 09/02/17: Pt sedated on Diprivan. Not opening eyes. Withdraws all 4 extremities to pain left side more than right side. Pupils 3mm bilaterally reactive bilaterally. Intubated. (Bhaskar Bazan) System Review Comments Not able to obtain given clinical condition. (Bhaskar Bazan) Exam Results Vital Signs Date Time Temp Pulse Resp B/P (MAP) Pulse Ox O2 Delivery O2 Flow Rate FiO2 09/02/17 08:38 100 30 09/02/17 08:00 67 09/02/17 08:00 99.0 16 107/50 (69) 09/01/17 23:16 Ventilator Intake and Output 09/02/17 09/02/17 09/03/17 08:00 16:00 00:00 Intake Total 1902.4 ml Output Total 2320 ml Balance -417.6 ml (Bhaskar Bazan) Physical Examination General: Pt Sedated on Diprivan with stable vitals. Eyes: Pupils 3mm bilaterally reactive bilaterally. Sclera anicteric. Resp: Intubated. Pressure controlled rate 16. Peep 5. FiO2 30%. CTA bilaterally. Heart: NSR no murmurs. Abd: Soft positive bs Skin: Incision clean and dry without any signs of infection. ROMEO drain in place. Muscle: Withdraws all 4 extremities to pain Neuro: Pt sedated on Diprivan. Not following commands. Pupils 3mm bilaterally reactive bilaterally. withdraws extremities to pain. (Bhaskar Bazan) Lab, Micro, Other Results Last Impressions Head CT 09/01/17 0600 Signed Impressions: Service Date/Time: Friday, September 01, 2017 04:10 - CONCLUSION: 1. Status post placement of a right subdural drain with improvement in the right subdural hemorrhage. There is a small amount of residual fluid, hemorrhage and air are seen. 2. Enlargement of the previously seen left temporal hematoma now measuring up to 6 cm. There is 3 mm of zeqe-hz-nzqky midline shift. 3. New small 1.4 cm area of focal hemorrhage in the anterior inferior right temporal lobe. 4. Small posterior left subdural hemorrhage. The ICU was called and Laila, the patient's nurse was notified of these findings. Rakesh Henry MD Chest X-Ray 08/30/17 0000 Signed Impressions: Service Date/Time: Wednesday, August 30, 2017 15:51 - CONCLUSION: ET tube in good position. Anuel Brennan MD Laboratory Tests Test 09/01/17 13:40 09/02/17 04:04 White Blood Count 8.1 TH/MM3 5.3 TH/MM3 Red Blood Count 3.15 MIL/MM3 2.86 MIL/MM3 Hemoglobin 9.8 GM/DL 9.1 GM/DL Hematocrit 29.3 % 26.7 % Mean Corpuscular Volume 93.2 FL 93.2 FL Mean Corpuscular Hemoglobin 31.3 PG 31.9 PG Mean Corpuscular Hemoglobin Concent 33.6 % 34.2 % Red Cell Distribution Width 15.6 % 15.7 % Platelet Count 110 TH/MM3 95 TH/MM3 Mean Platelet Volume 7.4 FL 7.4 FL Neutrophils (%) (Auto) 91.4 % 72.7 % Lymphocytes (%) (Auto) 3.7 % 14.9 % Monocytes (%) (Auto) 4.6 % 10.4 % Eosinophils (%) (Auto) 0.1 % 1.0 % Basophils (%) (Auto) 0.2 % 1.0 % Neutrophils # (Auto) 7.4 TH/MM3 3.9 TH/MM3 Lymphocytes # (Auto) 0.3 TH/MM3 0.8 TH/MM3 Monocytes # (Auto) 0.4 TH/MM3 0.6 TH/MM3 Eosinophils # (Auto) 0.0 TH/MM3 0.1 TH/MM3 Basophils # (Auto) 0.0 TH/MM3 0.1 TH/MM3 CBC Comment DIFF FINAL AUTO DIFF Differential Comment AUTO DIFF CONFIRMED Prothrombin Time 13.4 SEC Prothromb Time International Ratio 1.2 RATIO Blood Urea Nitrogen 5 MG/DL 5 MG/DL Creatinine 0.45 MG/DL 0.37 MG/DL Random Glucose 130 MG/DL 91 MG/DL Total Protein 6.7 GM/DL 6.0 GM/DL Albumin 2.8 GM/DL 2.5 GM/DL Calcium Level 8.0 MG/DL 7.8 MG/DL Magnesium Level 1.7 MG/DL 1.7 MG/DL Alkaline Phosphatase 63 U/L 55 U/L Aspartate Amino Transf (AST/SGOT) 20 U/L 13 U/L Alanine Aminotransferase (ALT/SGPT) 12 U/L 15 U/L Total Bilirubin 1.8 MG/DL 0.4 MG/DL Sodium Level 139 MEQ/L 142 MEQ/L Potassium Level 2.9 MEQ/L 3.0 MEQ/L Chloride Level 107 MEQ/L 111 MEQ/L Carbon Dioxide Level 24.2 MEQ/L 22.6 MEQ/L Anion Gap 8 MEQ/L 8 MEQ/L Estimat Glomerular Filtration Rate 187 ML/MIN 234 ML/MIN Platelet Estimate LOW Platelet Morphology Comment NORMAL Basophilic Stippling FAINT Phenytoin (Dilantin) Level 8.6 MCG/ML (Bhaskar Bazan) Medical Decision Making Impression and Plan A: 66 y/o M s/p right 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 There is also resolving left temporal lobe hemorrhage and encephalomalacia from his previous injury. 2. Seizure likely related to the traumatic brain injury versus alcohol withdrawal. 3. Heavy alcohol abuse with associated cirrhosis. 4. Thrombocytopenia likely related to alcohol abuse. 5. COPD on continuous home oxygen. PLAN: Continue with close neuro checks Continue to monitor labs especially his thrombocytopenia. Continue with critical care. (Bhaskar Bazan) Attending Statement The exam, history, and the medical decision-making described in the above note were completed with the assistance of the mid-level provider. I reviewed and agree with the findings presented. I attest that I had a [id number] encounter with the patient on the same day, and personally performed and documented my assessment and findings in the medical record. (Leighton Gonzalez MD) Bhaskar Bazan Sep 02, 2017 10:02 Leighton Gonzalez MD Sep 02, 2017 17:37
[2017-09-02] MEDS: SODIUM CHLOR 0.9% 1000 ML INJ 1,000 ML IV SCH ×2 (10:40→12:54)
--- NOTE | 2017-09-02 14:24 | HHI.CCPN ---
Subjective Remarks/Hospital Course Patient is a 66-year-old white male who was admitted to the psychiatric service under Blake act on 08/27/17. He has history of Wernicke-Korsakoff syndrome, TBI with subdural hematoma, previous TBI with subarachnoid hemorrhage, suicidal ideation, alcohol abuse, COPD and alcohol-induced cirrhosis. Patient was hospitalized here 08/07/17 through 08/23/17 after passing out at a bar and sustaining a traumatic brain injury. At that time he did have bilateral subdural hemorrhages and small bitemporal hemorrhages. Patient was managed conservatively (N/S Dr. Duque) and eventually was discharged to [facility]. Prior to this he was admitted in March 2017 for TBI and subarachnoid hemorrhage. Psych admitting diagnosis was dementia with behavioral disturbances and aggressive behavior towards staff at residential. Today 08/30/17 a Halicat was called after patient was found on the floor. Apparently patient was in his normal state today a.m.. Nursing staff responded to hearing a thud in his room, patient was found to be lying on the floor with foaming him from his mouth and incontinence to urine. Apparently nursing staff also noted some seizure-like activity. Patient was unresponsive and nonverbal, but eyes open. A stat CT of the head was done which showed increase in size of the acute on chronic subdural hemorrhage now 1.7 cm with mild midline shift. Patient was emergently transferred to the ICU and critical care medicine was consulted. I immediately evaluated the patient. His level of consciousness is improving but he is very agitated. I discussed with Dr. Gonzalez who also evaluated the patient. Because of increase in size of the bleed patient will need evacuation of the subdural hemorrhage. Transfuse 1 unit platelets to correct thrombocytopenia. Due to severe agitation and new increase in bleed patient will be intubated and placed on mechanical ventilation. Dr. Gonzalez has updated the power of senior trial attorney was agreeable to intubation and surgical evacuation of the subdural hemorrhage 08/31/17: Remains intubated sedated critically ill. Withdraws 4 extremities. Platelet count above 84 received transfusion today one pack units of platelets in anticipation of or. Dr. Gonzalez planning on evacuation of subdural hemorrhage 09/01/17: s/p Right craniotomy for subdural hemorrhage evacuation. CT of the head shows right subdural drain with improvement in the right subdural hemorrhage, small amount of residual hemorrhage and pneumocephalus. There is also enlargement of left temporal hematoma now measuring up to 6 cm, 3 mm of left-to- right midline shift. New 1.4 cm area of focal hemorrhage in the anterior inferior right temporal lobe. 09/02/17: No acute events overnight. On sedation hold opens eyes to painful stimuli withdraws all 4 extremities, localizes do not follow commands. Coags normal platelet count 95. Objective Vital Signs Date Time Temp Pulse Resp B/P (MAP) Pulse Ox O2 Delivery O2 Flow Rate FiO2 09/02/17 12:00 87 09/02/17 12:00 99.5 16 129/55 (79) 100 09/02/17 12:00 30 09/01/17 23:16 Ventilator Intake and Output 09/02/17 09/02/17 09/03/17 08:00 16:00 00:00 Intake Total 1902.4 ml Output Total 2320 ml Balance -417.6 ml Result Diagram: 09/02/17 0404 09/02/17 0404 Other Results Microbiology Date/Time Source Procedure Growth Status 08/30/17 17:45 Sputum Endotracheal Gram Stain - Final Complete 08/30/17 17:45 Sputum Endotracheal Sputum Culture - Final HEAVY GROWTH NORMAL RESPIRATORY JOSE Complete Imaging Ct scan shows 1.7 cm right acute on chronic subdural hemorrhage with mild midline shift and pressure effect on right lateral ventricle Objective Remarks GENERAL: 66-year-old male intubated, sedated SKIN: warm/dry. HEAD: Normocephalic. EYES: Pupils equal and round. No scleral icterus. No injection or drainage. R drain with sanguinous drainage ENT: No nasal bleeding or discharge. orotracheally intubated NECK: Trachea midline. CARDIOVASCULAR: Regular rate and rhythm. Heart sounds normal. RESPIRATORY: Air entry equal bilaterally. Clear to auscultation. GASTROINTESTINAL: Abdomen soft. Nontender. Bowel sounds present. Nondistended. MUSCULOSKELETAL: No obvious deformities. NEUROLOGICAL: Intubated sedated. Opens eyes to painful stimuli. Moves extremities purposefully localizes to pain. KIM Urinary Catheter: Yes Assessment to: Continue A/P Assessment and Plan ASSESSMENT/PLAN Neuro: Acute on chronic right subdural hemorrhage 1.7 cm with 4 mm midline shift Stable, evolving left intraparenchymal hemorrhage Acute encephalopathy Alcohol dependence Dementia with behavioral disturbances - Follow neuro status. Neurosurgery Dr. Gonzalez - s/p Evacuation of subdural hemorrhage 08/31 - F/U CT head 09/01 shows expansion L parenchymal hemorrhage, but good evacuation R SDH - 2% saline at 40 ml. Propofol for sedation and vent synchrony postintubation, daily sedation hold approved by N/S - Transfuse 2 unit pheresed platelets 09/01 in view of thrombocytopenia and ICH - IV Thiamine. Ativan for seizures. EEG shows encephalopathy and no seizure - Loaded with Cerebyx 1 g and continue 100 mg every 8 hours. - Psych re consult once stable and extubated Cardiovascular: Hypertension, uncontrolled - Labetalol when necessary to keep SBP less than 150 mmHg, currently well controlled - Cardene infusion to keep systolic blood pressure less than 150 - Normal saline IV fluid at 150 ml per hour, 2% saline as above. Na 142 today Pulmonary: Acute respiratory failure COPD without exacerbation - Intubated due to severe agitation and for airway protection - Assist-control mechanical ventilation, vent bundle - DuoNeb every 6 hours when necessary - Start SBT mental status won't permit extubation GI/liver: History of hepatitis C and liver cirrhosis - Tube feeds with Jevity, IV famotidine - Bowel regimen Renal/: - IV hydration, follow intake output, monitor and replete electrolytes, follow BUN/creatinine. ID: - No indication for antibiotics at this time - perioperative antibiotics per Dr. Gonzalez Endocrine: - Sliding scale insulin for glycemic control if needed Heme: Thrombocytopenia - Follow CBC and coags. Transfuse blood products and vitamin K as needed - 2 U platelets 09/01 Prophylaxis: - Pepcid/SCDs. No subcutaneous heparin due to subdural hemorrhage Further recommendations per Dr. Gonzalez Level 3 Daria Cameron MD Sep 02, 2017 14:23
[2017-09-02] MEDS: DOCUSATE SODIUM 50 MG/SENNA 8.6 MG TAB PO SCH ×2 (14:49→21:17)
[2017-09-03] VITALS (16 sets, daily range): BP systolic 101–117; BP diastolic 48–65; PULSE 62–96; RESP 14–17; TEMP 99.7–100.3; O2SAT 98–100
[2017-09-03] MEDS: CHLORHEXIDINE GLUCONATE 2 % 1 PACK (2 CLOTHS) TOP SCH (04:00)
--- NOTE | 2017-09-03 04:55 | RADRPT ---
EXAM DATE/TIME: 09/03/2017 04:44 [facility] COMPARISON: CT BRAIN W/O CONTRAST, September 01, 2017, 4:10. INDICATIONS : Follow up intracerebral hemorrhage. RADIATION DOSE: 48.43 CTDIvol (mGy) ; Tabletop CT Head MEDICAL HISTORY : Cardiovascular disease. Seizures. Hepatitis C. SURGICAL HISTORY : Craniotomy. ENCOUNTER: Subsequent ACUITY: 3 weeks PAIN SCALE: Non-responsive LOCATION: cranial TECHNIQUE: Multiple contiguous axial images were obtained of the head. Using automated exposure control and adj ustment of the mA and/or kV according to patient size, radiation dose was kept as low as reasonably a chievable to obtain optimal diagnostic quality images. DICOM format image data is available [facility] for review and comparison. FINDINGS: CEREBRUM: There is a right subdural hemorrhage with a right subdural drain in place. The subdural collection me asures up to 1 cm in thickness. There is some air within the anterior right pleural space. There cont inues to be an area of parenchymal hemorrhage at the left temporal lobe. This is unchanged. There anjelica rounding edema seen in the left temporal region. There is minimal 2 mm of left to right midline shift . The ventricles are normal in size. POSTERIOR FOSSA: The cerebellum and brainstem are intact. The 4th ventricle is midline. The cerebellopontine angle i s unremarkable. EXTRACRANIAL: The visualized portion of the orbits is intact. There is ethmoid and right maxillary sinus disease. SKULL: The calvaria is intact. No evidence of skull fracture. CONCLUSION: 1. Persistent right subdural hemorrhage and air with a right subdural drain in place. 2. Persistent parenchymal hemorrhage at the left temporal lobe. 3. New abnormalities are not seen. Rakesh Henry MD on September 03, 2017 at 4:52 Board Certified Radiologist. This report was verified electronically.
[2017-09-03] MEDS: PHENYTOIN INJ 100 MG/2 ML VIAL IV PUSH SCH ×3 (06:31→21:02)
[2017-09-03] MEDS: PROPOFOL 1000 MG/100 ML INJ 100 ML IV PRN ×2 (06:50→17:25)
[2017-09-03] MEDS: CHLORHEXIDINE 0.12% (ORAL KIT) 15 ML CUP MT SCH ×2 (08:00→21:03)
[2017-09-03] MEDS: FAMOTIDINE 20 MG/2 ML VIAL IV PUSH SCH ×2 (08:03→21:02)
[2017-09-03] MEDS: DOCUSATE SODIUM 50 MG/SENNA 8.6 MG TAB PO SCH ×2 (08:03→21:02)
[2017-09-03] MEDS: POTASSIUM CHLORIDE 25 MEQ EFFERVESCENT TAB PO PRN (08:04)
[2017-09-03] MEDS: POTASSIUM CHLOR 20 MEQ PREMIX 100 ML IV PRN ×2 (08:04→11:00)
[2017-09-03] MEDS: THIAMINE INJ 100 MG in SODIUM CHLORIDE 0.9% INJ 100 ML IV SCH (09:00)
[2017-09-03] MEDS ORDERED: LIDOCAINE 2%/EPINEPHrine 1:100,000 30ML MDV INFIL ONE (09:45)
--- NOTE | 2017-09-03 09:50 | HHI.NSPN ---
(Bhaskar Bazan) History Chief Complaint: Intubated and sedated s/p right crani for SDH. (Bhaskar Bazan) Interval History 66-year-old gentleman who was admitted to the [facility] three days ago under the Blake Act. Prior to that, he was in [facility] facility recuperating after a traumatic brain injury with a left temporal lobe hemorrhage and small right parietal subdural hemorrhage. This was treated nonsurgically. He was discharged a couple of weeks ago to rehab. At the rehab place three days ago he was using a pair of scissors to cut electrical cords and also pull his teeth and was being very aggressive towards the staff. He has had some difficulty with his speech and confusion and short-term memory loss ever since his traumatic brain injury. According to his power of welfare specialist, he has had multiple admissions recently over the past couple of months for traumatic brain injury and bleeds related to falls and alcohol abuse. Apparently at this afternoon the patient was found on the floor by the psychiatric nursing staff and was not responsive and was incontinent of his urine and it was felt like he may have had a seizure. He was taken to the CT scanner for the CT scan of the head and which shows a right frontoparietooccipital lobe acute on chronic subdural hemorrhage measuring about 17 mm in thickness with about 4 mm buxwk-mi-abew shift. This has progressed since his previous CT scan a couple weeks ago. He was transferred to the intensive care unit and I was contacted by the furrier apprentice. The patient is starting to respond more and is now awake, although is confused and moving all four extremities, although less spontaneous on the left side. He is starting to verbalize also whereas in the [facility] he was unresponsive with contractures and spasms. 09/01/17: Pt sedated on Diprivan. Not opening eyes. Pupils 3mm bilaterally reactive bilaterally. Withdraws all 4 extremities to pain. 09/02/17: Pt sedated on Diprivan. Not opening eyes. Withdraws all 4 extremities to pain left side more than right side. Pupils 3mm bilaterally reactive bilaterally. Intubated. 09/03/17: Pt sedated on Diprivan but on hold for 45min. Not opening eyes but moves head to voice. Not following commands. (Bhaskar Bazan) System Review Comments Not able to obtain given clinical condition. (Bhaskar Bazan) Exam Results Vital Signs Date Time Temp Pulse Resp B/P (MAP) Pulse Ox O2 Delivery O2 Flow Rate FiO2 09/03/17 08:48 30 09/03/17 08:48 100 09/03/17 08:00 100.0 90 17 105/48 (67) 09/03/17 04:59 Ventilator Intake and Output 09/03/17 09/03/17 09/04/17 08:00 16:00 00:00 Intake Total 1025.5 ml Output Total 1180.0 ml Balance -154.5 ml (Bhaskar Bazan) Physical Examination General: Pt Sedated on Diprivan with stable vitals. Eyes: Pupils 3mm bilaterally reactive bilaterally. Resp: Intubated. CPAP. CTA bilaterally. Heart: NSR no murmurs. Abd: Soft positive bs Skin: Incision clean and dry without any signs of infection. ROMEO drain in place. Muscle: Withdraws all 4 extremities to pain. Spontaneous movement in LEs. Not following for muscle testing. Neuro: Pt sedated on Diprivan. Not following commands. Pupils 3mm bilaterally reactive bilaterally. Withdraws extremities to pain. (Bhaskar Bazan) Lab, Micro, Other Results Last Impressions Head CT 09/03/17 0600 Signed Impressions: Service Date/Time: Sunday, September 03, 2017 04:44 - CONCLUSION: 1. Persistent right subdural hemorrhage and air with a right subdural drain in place. 2. Persistent parenchymal hemorrhage at the left temporal lobe. 3. New abnormalities are not seen. Rakesh Henry MD Chest X-Ray 08/30/17 0000 Signed Impressions: Service Date/Time: Wednesday, August 30, 2017 15:51 - CONCLUSION: ET tube in good position. Anuel Brennan MD Laboratory Tests Test 09/03/17 03:30 Phenytoin (Dilantin) Level 6.5 MCG/ML 09/03/17 09/03/17 09/04/17 15:00 23:00 07:00 Output Total 0 ml Balance 0 ml Tube Feeding Residual Discard 0 ml (Bhaskar Bazan) Medical Decision Making Impression and Plan A: 66 y/o M s/p right 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 There is also resolving left temporal lobe hemorrhage and encephalomalacia from his previous injury. 2. Seizure likely related to the traumatic brain injury versus alcohol withdrawal. 3. Heavy alcohol abuse with associated cirrhosis. 4. Thrombocytopenia likely related to alcohol abuse. 5. COPD on continuous home oxygen. PLAN: Continue with close neuro checks Continue to monitor labs especially his thrombocytopenia. Continue with critical care. D/C ROMEO drain today. (Bhaskar Bazan) Attending Statement The exam, history, and the medical decision-making described in the above note were completed with the assistance of the mid-level provider. I reviewed and agree with the findings presented. I attest that I had a [id number] encounter with the patient on the same day, and personally performed and documented my assessment and findings in the medical record. Stable follow-up CT scan of the head. Discontinue subdural drain and wean ventilator status as tolerated. (Leighton Gonzalez MD) Bhaskar Bazan Sep 03, 2017 09:49 Leighton Gonzalez MD Sep 03, 2017 12:22
[2017-09-03] MEDS ORDERED: LIDOCAINE HCL 1% 50 ML VIAL ONE (11:10)
[2017-09-03] MEDS ORDERED: LIDOCAINE 2%/EPINEPHrine 1:100,000 20ML MDV INFIL ONE (12:30)
[2017-09-03] MEDS: SODIUM CHLORIDE 0.9% FLUSH 10 ML FLUSH IV FLUSH SCH ×2 (13:37→21:03)
--- NOTE | 2017-09-03 15:13 | HHI.CCPN ---
Subjective Remarks/Hospital Course Patient is a 66-year-old white male who was admitted to the psychiatric service under Blake act on 08/27/17. He has history of Wernicke-Korsakoff syndrome, TBI with subdural hematoma, previous TBI with subarachnoid hemorrhage, suicidal ideation, alcohol abuse, COPD and alcohol-induced cirrhosis. Patient was hospitalized here 08/07/17 through 08/23/17 after passing out at a bar and sustaining a traumatic brain injury. At that time he did have bilateral subdural hemorrhages and small bitemporal hemorrhages. Patient was managed conservatively (N/S Dr. Duque) and eventually was discharged to [facility]. Prior to this he was admitted in March 2017 for TBI and subarachnoid hemorrhage. Psych admitting diagnosis was dementia with behavioral disturbances and aggressive behavior towards staff at [facility]. Today 08/30/17 a Halicat was called after patient was found on the floor. Apparently patient was in his normal state today a.m.. Nursing staff responded to hearing a thud in his room, patient was found to be lying on the floor with foaming him from his mouth and incontinence to urine. Apparently nursing staff also noted some seizure-like activity. Patient was unresponsive and nonverbal, but eyes open. A stat CT of the head was done which showed increase in size of the acute on chronic subdural hemorrhage now 1.7 cm with mild midline shift. Patient was emergently transferred to the ICU and critical care medicine was consulted. I immediately evaluated the patient. His level of consciousness is improving but he is very agitated. I discussed with Dr. Gonzalez who also evaluated the patient. Because of increase in size of the bleed patient will need evacuation of the subdural hemorrhage. Transfuse 1 unit platelets to correct thrombocytopenia. Due to severe agitation and new increase in bleed patient will be intubated and placed on mechanical ventilation. Dr. Gonzalez has updated the power of workers compensation attorney was agreeable to intubation and surgical evacuation of the subdural hemorrhage 08/31/17: Remains intubated sedated critically ill. Withdraws 4 extremities. Platelet count above 84 received transfusion today one pack units of platelets in anticipation of or. Dr. Gonzalez planning on evacuation of subdural hemorrhage 09/01/17: s/p Right craniotomy for subdural hemorrhage evacuation. CT of the head shows right subdural drain with improvement in the right subdural hemorrhage, small amount of residual hemorrhage and pneumocephalus. There is also enlargement of left temporal hematoma now measuring up to 6 cm, 3 mm of left-to- right midline shift. New 1.4 cm area of focal hemorrhage in the anterior inferior right temporal lobe. 09/02/17: No acute events overnight. On sedation hold opens eyes to painful stimuli withdraws all 4 extremities, localizes do not follow commands. Coags normal platelet count 95. 09/03: Unable to wean from ventilator. Objective Vital Signs Date Time Temp Pulse Resp B/P (MAP) Pulse Ox O2 Delivery O2 Flow Rate FiO2 09/03/17 12:00 100.0 78 16 101/61 (74) 99 09/03/17 11:00 30 09/03/17 04:59 Ventilator Intake and Output 09/03/17 09/03/17 09/04/17 08:00 16:00 00:00 Intake Total 1025.5 ml 1097 ml Output Total 1180.0 ml Balance -154.5 ml 1097 ml Result Diagram: 09/02/17 0404 09/02/[address] scan shows 1.7 cm right acute on chronic subdural hemorrhage with mild midline shift and pressure effect on right lateral ventricle Objective Remarks GENERAL: 66-year-old male intubated, sedated SKIN: warm/dry. HEAD: Normocephalic. EYES: Pupils equal and round. No scleral icterus. No injection or drainage. R drain with sanguinous drainage ENT: No nasal bleeding or discharge. orotracheally intubated NECK: Trachea midline. CARDIOVASCULAR: Regular rate and rhythm. Heart sounds normal. RESPIRATORY: Air entry equal bilaterally. Clear to auscultation. GASTROINTESTINAL: Abdomen soft. Nontender. Bowel sounds present. Nondistended. MUSCULOSKELETAL: No obvious deformities. NEUROLOGICAL: Intubated sedated. Opens eyes to painful stimuli. Moves extremities purposefully localizes to pain. 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 Neurosurgery Dr. Gonzalez - s/p Evacuation of subdural hemorrhage 08/31 - F/U CT head 09/01 shows expansion L parenchymal hemorrhage, but good evacuation R SDH - 2% saline at 40 ml. Propofol for sedation and vent synchrony postintubation, daily sedation hold approved by N/S - Transfuse 2 unit pheresed platelets 09/01 in view of thrombocytopenia and ICH - IV Thiamine. Ativan for seizures. EEG shows encephalopathy and no seizure - Loaded with Cerebyx 1 g and continue 100 mg every 8 hours. - Psych re consult once stable and extubated Cardiovascular: Hypertension, uncontrolled - Labetalol when necessary to keep SBP less than 150 mmHg, currently well controlled - Cardene infusion to keep systolic blood pressure less than 150 - Normal saline IV fluid at 150 ml per hour, 2% saline as above. Na 142 today Pulmonary: Acute respiratory failure COPD without exacerbation - Intubated due to severe agitation and for airway protection - Assist-control mechanical ventilation, vent bundle - DuoNeb every 6 hours when necessary - Start SBT mental status won't permit extubation GI/liver: History of hepatitis C and liver cirrhosis - Tube feeds with Jevity, IV famotidine - Bowel regimen Renal/: - IV hydration, follow intake output, monitor and replete electrolytes, follow BUN/creatinine. ID: - No indication for antibiotics at this time - perioperative antibiotics per Dr. Gonzalez Endocrine: - Sliding scale insulin for glycemic control if needed Heme: Thrombocytopenia - Follow CBC and coags. Transfuse blood products and vitamin K as needed - 2 U platelets 09/01 Prophylaxis: - Pepcid/SCDs. No subcutaneous heparin due to subdural hemorrhage Further recommendations per Dr. Gonzalez Overall impression: Unable to wean from ventilator. Deep Johnson MD Sep 03, 2017 15:13
[2017-09-04] VITALS (14 sets, daily range): BP systolic 104–118; BP diastolic 60–71; PULSE 79–93; RESP 16–20; TEMP 99.9–100.4; O2SAT 98–100
[2017-09-04] MEDS: SODIUM CHLORIDE 23.4% INJ 188 MEQ in SODIUM CHLOR 0.9% 1000 ML INJ 1,000 ML IV SCH (01:43)
[2017-09-04] MEDS: CHLORHEXIDINE GLUCONATE 2 % 1 PACK (2 CLOTHS) TOP SCH (03:56)
[2017-09-04] MEDS: PHENYTOIN INJ 100 MG/2 ML VIAL IV PUSH SCH ×3 (05:31→22:49)
[2017-09-04] MEDS: PROPOFOL 1000 MG/100 ML INJ 100 ML IV PRN (05:44)
[2017-09-04 05:49] LABS: POTASSIUM 3.5 MEQ/L (3.5-5.1)
[2017-09-04] MEDS: POTASSIUM CHLORIDE 25 MEQ EFFERVESCENT TAB PO PRN (06:02)
[2017-09-04] MEDS: CHLORHEXIDINE 0.12% (ORAL KIT) 15 ML CUP MT SCH ×2 (08:00→20:37)
[2017-09-04] MEDS: FAMOTIDINE 20 MG/2 ML VIAL IV PUSH SCH ×2 (09:00→20:37)
[2017-09-04] MEDS: DOCUSATE SODIUM 50 MG/SENNA 8.6 MG TAB PO SCH ×2 (09:00→20:36)
[2017-09-04] MEDS: THIAMINE INJ 100 MG in SODIUM CHLORIDE 0.9% INJ 100 ML IV SCH (09:00)
[2017-09-04] MEDS: LACTULOSE SYRUP 20 GM/30 ML CUP PO PRN (09:00)
[2017-09-04] MEDS: SODIUM CHLORIDE 0.9% FLUSH 10 ML FLUSH IV FLUSH SCH ×2 (09:00→20:37)
--- NOTE | 2017-09-04 09:25 | HHI.NSPN ---
(Bhaskar Bazan) History Chief Complaint: Intubated and sedated s/p right crani for SDH. (Bhaskar Bazan) Interval History 66-year-old gentleman who was admitted to the psychiatric [facility] three days ago under the Blake Act. Prior to that, he was in [facility] facility recuperating after a traumatic brain injury with a left temporal lobe hemorrhage and small right parietal subdural hemorrhage. This was treated nonsurgically. He was discharged a couple of weeks ago to rehab. At the rehab place three days ago he was using a pair of scissors to cut electrical cords and also pull his teeth and was being very aggressive towards the staff. He has had some difficulty with his speech and confusion and short-term memory loss ever since his traumatic brain injury. According to his power of trust and estates attorney, he has had multiple admissions recently over the past couple of months for traumatic brain injury and bleeds related to falls and alcohol abuse. Apparently at this afternoon the patient was found on the floor by the psychiatric nursing staff and was not responsive and was incontinent of his urine and it was felt like he may have had a seizure. He was taken to the CT scanner for the CT scan of the head and which shows a right frontoparietooccipital lobe acute on chronic subdural hemorrhage measuring about 17 mm in thickness with about 4 mm [id number] shift. This has progressed since his previous CT scan a couple weeks ago. He was transferred to the intensive care unit and I was contacted by the cube machine tender. The patient is starting to respond more and is now awake, although is confused and moving all four extremities, although less spontaneous on the left side. He is starting to verbalize also whereas in the [facility] he was unresponsive with contractures and spasms. 09/01/17: Pt sedated on Diprivan. Not opening eyes. Pupils 3mm bilaterally reactive bilaterally. Withdraws all 4 extremities to pain. 09/02/17: Pt sedated on Diprivan. Not opening eyes. Withdraws all 4 extremities to pain left side more than right side. Pupils 3mm bilaterally reactive bilaterally. Intubated. 09/03/17: Pt sedated on Diprivan but on hold for 45min. Not opening eyes but moves head to voice. Not following commands. 09/04/17: Pts Diprivan being continuously held. Not opening eyes but moves head toward side of bed voice is coming from. Not following commands. Pt Continuously trying to cough ET Tube out. Only mild sputum on ET suctioning. (Bhaskar Bazan) System Review Comments Not able to obtain given clinical condition. (Bhaskar Bazan) Exam Results Vital Signs Date Time Temp Pulse Resp B/P (MAP) Pulse Ox O2 Delivery O2 Flow Rate FiO2 09/04/17 08:00 90 09/04/17 08:00 100.0 17 104/60 (75) 99 09/04/17 07:43 30 09/03/17 04:59 Ventilator Intake and Output 09/04/17 09/04/17 09/05/17 08:00 16:00 00:00 Intake Total 1451.2 ml Output Total 1000.0 ml Balance 451.2 ml (Bhaskar Bazan) Physical Examination General: Pt intubated and some agitation with stable vitals. Eyes: Pupils 3mm bilaterally reactive bilaterally. Resp: Intubated. CPAP. CTA bilaterally. Heart: NSR no murmurs. Abd: Soft positive bs Skin: Incision clean and dry without any signs of infection. Muscle: Withdraws all 4 extremities to pain. Spontaneous movement in all 4 extremities LUE more than RUE. Not following for muscle testing. Neuro: Pt off sedation. Not following commands. Pupils 3mm bilaterally reactive bilaterally. Withdraws extremities to pain. Purposeful with extremities more with LUE than RUE. (Bhaskar Bazan) Lab, Micro, Other Results Last Impressions Head CT 09/03/17 0600 Signed Impressions: Service Date/Time: Sunday, September 03, 2017 04:44 - CONCLUSION: 1. Persistent right subdural hemorrhage and air with a right subdural drain in place. 2. Persistent parenchymal hemorrhage at the left temporal lobe. 3. New abnormalities are not seen. Rakesh Henry MD Chest X-Ray 08/30/17 0000 Signed Impressions: Service Date/Time: Wednesday, August 30, 2017 15:51 - CONCLUSION: ET tube in good position. Anuel Brennan MD Laboratory Tests Test 09/03/17 14:20 09/04/17 04:34 Potassium Level 3.8 MEQ/L 3.5 MEQ/L Blood Urea Nitrogen 10 MG/DL Creatinine 0.44 MG/DL Random Glucose 132 MG/DL Calcium Level 8.7 MG/DL Sodium Level 137 MEQ/L Chloride Level 102 MEQ/L Carbon Dioxide Level 29.0 MEQ/L Anion Gap 6 MEQ/L Estimat Glomerular Filtration Rate 192 ML/MIN 09/04/17 09/04/17 09/05/17 15:00 23:00 07:00 Output Total 0 ml Balance 0 ml Tube Feeding Residual Discard 0 ml (Bhaskar Bazan) Medical Decision Making Impression and Plan A: 66 y/o M s/p right 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 There is also resolving left temporal lobe hemorrhage and encephalomalacia from his previous injury. 2. Seizure likely related to the traumatic brain injury versus alcohol withdrawal. 3. Heavy alcohol abuse with associated cirrhosis. 4. Thrombocytopenia likely related to alcohol abuse. 5. COPD on continuous home oxygen. PLAN: Continue with close neuro checks Continue to monitor labs especially his thrombocytopenia. Continue with critical care. (Bhaskar Bazan) Attending Statement The exam, history, and the medical decision-making described in the above note were completed with the assistance of the mid-level provider. I reviewed and agree with the findings presented. I attest that I had a [id number] encounter with the patient on the same day, and personally performed and documented my assessment and findings in the medical record. Intubated but when stimulated tries to open his eyes and withdraws but not following commands in the extremities. Continue with the sedation and ventilatory weaning and extubate when more alert. (Leighton Gonzalez MD) Bhaskar Bazan Sep 04, 2017 09:25 Leighton Gonzalez MD Sep 04, 2017 17:08
--- NOTE | 2017-09-04 11:58 | HHI.CCPN ---
Subjective Remarks/Hospital Course Patient is a 66-year-old white male who was admitted to the psychiatric service under Blake act on 08/27/17. He has history of Wernicke-Korsakoff syndrome, TBI with subdural hematoma, previous TBI with subarachnoid hemorrhage, suicidal ideation, alcohol abuse, COPD and alcohol-induced cirrhosis. Patient was hospitalized here 08/07/17 through 08/23/17 after passing out at a bar and sustaining a traumatic brain injury. At that time he did have bilateral subdural hemorrhages and small bitemporal hemorrhages. Patient was managed conservatively (N/S Dr. Duque) and eventually was discharged to [facility]. Prior to this he was admitted in March 2017 for TBI and subarachnoid hemorrhage. Psych admitting diagnosis was dementia with behavioral disturbances and aggressive behavior towards staff at [facility]. Today 08/30/17 a Halicat was called after patient was found on the floor. Apparently patient was in his normal state today a.m.. Nursing staff responded to hearing a thud in his room, patient was found to be lying on the floor with foaming him from his mouth and incontinence to urine. Apparently nursing staff also noted some seizure-like activity. Patient was unresponsive and nonverbal, but eyes open. A stat CT of the head was done which showed increase in size of the acute on chronic subdural hemorrhage now 1.7 cm with mild midline shift. Patient was emergently transferred to the ICU and critical care medicine was consulted. I immediately evaluated the patient. His level of consciousness is improving but he is very agitated. I discussed with Dr. Gonzalez who also evaluated the patient. Because of increase in size of the bleed patient will need evacuation of the subdural hemorrhage. Transfuse 1 unit platelets to correct thrombocytopenia. Due to severe agitation and new increase in bleed patient will be intubated and placed on mechanical ventilation. Dr. Gonzalez has updated the power of senior attorney was agreeable to intubation and surgical evacuation of the subdural hemorrhage 08/31/17: Remains intubated sedated critically ill. Withdraws 4 extremities. Platelet count above 84 received transfusion today one pack units of platelets in anticipation of or. Dr. Gonzalez planning on evacuation of subdural hemorrhage 09/01/17: s/p Right craniotomy for subdural hemorrhage evacuation. CT of the head shows right subdural drain with improvement in the right subdural hemorrhage, small amount of residual hemorrhage and pneumocephalus. There is also enlargement of left temporal hematoma now measuring up to 6 cm, 3 mm of left-to- right midline shift. New 1.4 cm area of focal hemorrhage in the anterior inferior right temporal lobe. 09/02/17: No acute events overnight. On sedation hold opens eyes to painful stimuli withdraws all 4 extremities, localizes do not follow commands. Coags normal platelet count 95. 09/03: Unable to wean from ventilator. 09/04: Too tachypneic on CPAP trials. Unable to arouse. Probably will require trach. Objective Vital Signs Date Time Temp Pulse Resp B/P (MAP) Pulse Ox O2 Delivery O2 Flow Rate FiO2 09/04/17 10:44 99 30 09/04/17 08:00 90 09/04/17 08:00 100.0 17 104/60 (75) 09/03/17 04:59 Ventilator Intake and Output 09/04/17 09/04/17 09/05/17 08:00 16:00 00:00 Intake Total 1451.2 ml Output Total 1000.0 ml Balance 451.2 ml Result Diagram: 09/02/17 0404 09/04/[address] scan shows 1.7 cm right acute on chronic subdural hemorrhage with mild midline shift and pressure effect on right lateral ventricle Objective Remarks GENERAL: 66-year-old male intubated, sedated SKIN: warm/dry. HEAD: Normocephalic. EYES: Pupils equal and round. No scleral icterus. No injection or drainage. R drain with sanguinous drainage ENT: No nasal bleeding or discharge. orotracheally intubated NECK: Trachea midline. CARDIOVASCULAR: Regular rate and rhythm. Heart sounds normal. RESPIRATORY: Air entry equal bilaterally. Clear to auscultation. GASTROINTESTINAL: Abdomen soft. Nontender. Bowel sounds present. Nondistended. MUSCULOSKELETAL: No obvious deformities. NEUROLOGICAL: Intubated sedated. Opens eyes to painful stimuli. Moves extremities purposefully localizes to pain. 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 Neurosurgery Dr. Gonzalez - s/p Evacuation of subdural hemorrhage 08/31 - F/U CT head 09/01 shows expansion L parenchymal hemorrhage, but good evacuation R SDH - 2% saline at 40 ml. Propofol for sedation and vent synchrony postintubation, daily sedation hold approved by N/S - Transfuse 2 unit pheresed platelets 09/01 in view of thrombocytopenia and ICH - IV Thiamine. Ativan for seizures. EEG shows encephalopathy and no seizure - Loaded with Cerebyx 1 g and continue 100 mg every 8 hours. - Psych re consult once stable and extubated Cardiovascular: Hypertension, uncontrolled - Labetalol when necessary to keep SBP less than 150 mmHg, currently well controlled - Cardene infusion to keep systolic blood pressure less than 150 - Normal saline IV fluid at 150 ml per hour, 2% saline as above. Na 142 today Pulmonary: Acute respiratory failure COPD without exacerbation - Intubated due to severe agitation and for airway protection - Assist-control mechanical ventilation, vent bundle - DuoNeb every 6 hours when necessary - Start SBT mental status won't permit extubation GI/liver: History of hepatitis C and liver cirrhosis - Tube feeds with Jevity, IV famotidine - Bowel regimen Renal/: - IV hydration, follow intake output, monitor and replete electrolytes, follow BUN/creatinine. ID: - No indication for antibiotics at this time - perioperative antibiotics per Dr. Gonzalez Endocrine: - Sliding scale insulin for glycemic control if needed Heme: Thrombocytopenia - Follow CBC and coags. Transfuse blood products and vitamin K as needed - 2 U platelets 09/01 Prophylaxis: - Pepcid/SCDs. No subcutaneous heparin due to subdural hemorrhage Further recommendations per Dr. Gonzalez Overall impression: Unable to wean from ventilator. Trach? Deep Johnson MD Sep 04, 2017 11:58
[2017-09-04] MEDS: ACETAMINOPHEN 325 MG TAB PO PRN (23:52)
[2017-09-05] VITALS (18 sets, daily range): BP systolic 96–114; BP diastolic 53–71; PULSE 68–98; RESP 12–22; TEMP 98.6–101.1; O2SAT 98–100
[2017-09-05] MEDS: CHLORHEXIDINE GLUCONATE 2 % 1 PACK (2 CLOTHS) TOP SCH (04:00)
[2017-09-05] MEDS: CHLORHEXIDINE 0.12% (ORAL KIT) 15 ML CUP MT SCH ×2 (08:40→20:00)
[2017-09-05] MEDS: SODIUM CHLORIDE 0.9% FLUSH 10 ML FLUSH IV FLUSH SCH ×2 (08:41→20:15)
[2017-09-05] MEDS: FAMOTIDINE 20 MG/2 ML VIAL IV PUSH SCH ×2 (08:41→20:15)
[2017-09-05] MEDS: THIAMINE INJ 100 MG in SODIUM CHLORIDE 0.9% INJ 100 ML IV SCH (08:41)
[2017-09-05] MEDS: DOCUSATE SODIUM 50 MG/SENNA 8.6 MG TAB PO SCH ×2 (08:41→20:15)
--- NOTE | 2017-09-05 09:49 | HHI.NSPN ---
(Bhaskar Bazan) History Chief Complaint: Intubated and sedated s/p right crani for SDH. (Bhaskar Bazan) Interval History 66-year-old gentleman who was admitted to the psychiatric [facility] three days ago under the Blake Act. Prior to that, he was in [facility] facility recuperating after a traumatic brain injury with a left temporal lobe hemorrhage and small right parietal subdural hemorrhage. This was treated nonsurgically. He was discharged a couple of weeks ago to rehab. At the rehab place three days ago he was using a pair of scissors to cut electrical cords and also pull his teeth and was being very aggressive towards the staff. He has had some difficulty with his speech and confusion and short-term memory loss ever since his traumatic brain injury. According to his power of deputy prosecuting attorney, he has had multiple admissions recently over the past couple of months for traumatic brain injury and bleeds related to falls and alcohol abuse. Apparently at this afternoon the patient was found on the floor by the psychiatric nursing staff and was not responsive and was incontinent of his urine and it was felt like he may have had a seizure. He was taken to the CT scanner for the CT scan of the head and which shows a right frontoparietooccipital lobe acute on chronic subdural hemorrhage measuring about 17 mm in thickness with about 4 mm [id number] shift. This has progressed since his previous CT scan a couple weeks ago. He was transferred to the intensive care unit and I was contacted by the rn plastics. The patient is starting to respond more and is now awake, although is confused and moving all four extremities, although less spontaneous on the left side. He is starting to verbalize also whereas in the psychiatric [facility] he was unresponsive with contractures and spasms. 09/01/17: Pt sedated on Diprivan. Not opening eyes. Pupils 3mm bilaterally reactive bilaterally. Withdraws all 4 extremities to pain. 09/02/17: Pt sedated on Diprivan. Not opening eyes. Withdraws all 4 extremities to pain left side more than right side. Pupils 3mm bilaterally reactive bilaterally. Intubated. 09/03/17: Pt sedated on Diprivan but on hold for 45min. Not opening eyes but moves head to voice. Not following commands. 09/04/17: Pts Diprivan being continuously held. Not opening eyes but moves head toward side of bed voice is coming from. Not following commands. Pt Continuously trying to cough ET Tube out. Only mild sputum on ET suctioning. 09/05/17: Patient opening eyes slightly to voice. Pupils 3 mm bilaterally. Not following commands. (Bhaskar Bazan) System Review Comments Not able to obtain given clinical condition. (Bhaskar Bazan) Exam Results Vital Signs Date Time Temp Pulse Resp B/P (MAP) Pulse Ox O2 Delivery O2 Flow Rate FiO2 09/05/17 08:00 30 09/05/17 08:00 99.5 68 14 106/64 (78) 99 09/03/17 04:59 Ventilator Intake and Output 09/05/17 09/05/17 09/06/17 08:00 16:00 00:00 Intake Total 772 ml Output Total 950.0 ml Balance -178.0 ml (Bhaskar Bazan) Physical Examination General: Pt intubated starting to open eyes with stable vitals. Eyes: Pupils 3mm bilaterally reactive bilaterally. Resp: Intubated. CPAP. CTA bilaterally. Heart: NSR no murmurs. Abd: Soft positive bs Skin: Incision clean and dry without any signs of infection. Muscle: Spontaneous movement in all 4 extremities LUE more than RUE. Not following for muscle testing. Neuro: Pt off sedation. Not following commands. Opens eyes slightly to voice. Pupils 3mm bilaterally reactive bilaterally. Withdraws extremities to pain. Purposeful with extremities more with LUE than RUE. (Bhaskar Bazan) Lab, Micro, Other Results 09/05/17 09/05/17 09/06/17 15:00 23:00 07:00 Output Total 0 ml Balance 0 ml Tube Feeding Residual Discard 0 ml Last Impressions Head CT 09/03/17 0600 Signed Impressions: Service Date/Time: Friday, September 03, 2017 04:44 - CONCLUSION: 1. Persistent right subdural hemorrhage and air with a right subdural drain in place. 2. Persistent parenchymal hemorrhage at the left temporal lobe. 3. New abnormalities are not seen. Rakesh Henry MD Chest X-Ray 08/30/17 0000 Signed Impressions: Service Date/Time: Wednesday, August 30, 2017 15:51 - CONCLUSION: ET tube in good position. Anuel Brennan MD (Bhaskar Bazan) Medical Decision Making Impression and Plan A: 66 y/o M s/p right 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 There is also resolving left temporal lobe hemorrhage and encephalomalacia from his previous injury. 2. Seizure likely related to the traumatic brain injury versus alcohol withdrawal. 3. Heavy alcohol abuse with associated cirrhosis. 4. Thrombocytopenia likely related to alcohol abuse. 5. COPD on continuous home oxygen. PLAN: Continue with close neuro checks Continue to monitor labs especially his thrombocytopenia. Continue with critical care. (Bhaskar Bazan) Attending Statement The exam, history, and the medical decision-making described in the above note were completed with the assistance of the mid-level provider. I reviewed and agree with the findings presented. I attest that I had a [id number] encounter with the patient on the same day, and personally performed and documented my assessment and findings in the medical record. (Leighton Gonzalez MD) Bhaskar Bazan Sep 05, 2017 09:49 Leighton Gonzalez MD Sep 05, 2017 14:48
--- NOTE | 2017-09-05 10:55 | HHI.CCPN ---
Subjective Remarks/Hospital Course Patient is a 66-year-old white male who was admitted to the psychiatric service under Blake act on 08/27/17. He has history of Wernicke-Korsakoff syndrome, TBI with subdural hematoma, previous TBI with subarachnoid hemorrhage, suicidal ideation, alcohol abuse, COPD and alcohol-induced cirrhosis. Patient was hospitalized here 08/07/17 through 08/23/17 after passing out at a bar and sustaining a traumatic brain injury. At that time he did have bilateral subdural hemorrhages and small bitemporal hemorrhages. Patient was managed conservatively (N/S Dr. Duque) and eventually was discharged to [facility]. Prior to this he was admitted in March 2017 for TBI and subarachnoid hemorrhage. Psych admitting diagnosis was dementia with behavioral disturbances and aggressive behavior towards staff at [facility]. Today 08/30/17 a Halicat was called after patient was found on the floor. Apparently patient was in his normal state today a.m.. Nursing staff responded to hearing a thud in his room, patient was found to be lying on the floor with foaming him from his mouth and incontinence to urine. Apparently nursing staff also noted some seizure-like activity. Patient was unresponsive and nonverbal, but eyes open. A stat CT of the head was done which showed increase in size of the acute on chronic subdural hemorrhage now 1.7 cm with mild midline shift. Patient was emergently transferred to the ICU and critical care medicine was consulted. I immediately evaluated the patient. His level of consciousness is improving but he is very agitated. I discussed with Dr. Gonzalez who also evaluated the patient. Because of increase in size of the bleed patient will need evacuation of the subdural hemorrhage. Transfuse 1 unit platelets to correct thrombocytopenia. Due to severe agitation and new increase in bleed patient will be intubated and placed on mechanical ventilation. Dr. Gonzalez has updated the power of assistant prosecuting attorney was agreeable to intubation and surgical evacuation of the subdural hemorrhage 08/31/17: Remains intubated sedated critically ill. Withdraws 4 extremities. Platelet count above 84 received transfusion today one pack units of platelets in anticipation of or. Dr. Gonzalez planning on evacuation of subdural hemorrhage 09/01/17: s/p Right craniotomy for subdural hemorrhage evacuation. CT of the head shows right subdural drain with improvement in the right subdural hemorrhage, small amount of residual hemorrhage and pneumocephalus. There is also enlargement of left temporal hematoma now measuring up to 6 cm, 3 mm of left-to- right midline shift. New 1.4 cm area of focal hemorrhage in the anterior inferior right temporal lobe. 09/02/17: No acute events overnight. On sedation hold opens eyes to painful stimuli withdraws all 4 extremities, localizes do not follow commands. Coags normal platelet count 95. 09/03: Unable to wean from ventilator. 09/04: Too tachypneic on CPAP trials. Unable to arouse. Probably will require trach. 09/05: Tolerating SBTs, will try to extubate but anticipate airway control problems. Objective Vital Signs Date Time Temp Pulse Resp B/P (MAP) Pulse Ox O2 Delivery O2 Flow Rate FiO2 09/05/17 10:48 98 30 09/05/17 10:00 74 09/05/17 08:00 99.5 14 106/64 (78) 09/03/17 04:59 Ventilator Intake and Output 09/05/17 09/05/17 09/06/17 08:00 16:00 00:00 Intake Total 772 ml Output Total 950.0 ml Balance -178.0 ml Result Diagram: 09/02/17 0404 09/04/[address] scan shows 1.7 cm right acute on chronic subdural hemorrhage with mild midline shift and pressure effect on right lateral ventricle Objective Remarks GENERAL: 66-year-old male intubated, sedated SKIN: warm/dry. HEAD: Normocephalic. EYES: Pupils equal and round. No scleral icterus. No injection or drainage. R drain with sanguinous drainage ENT: No nasal bleeding or discharge. orotracheally intubated NECK: Trachea midline. CARDIOVASCULAR: Regular rate and rhythm. Heart sounds normal. RESPIRATORY: Air entry equal bilaterally. Clear to auscultation. GASTROINTESTINAL: Abdomen soft. Nontender. Bowel sounds present. Nondistended. MUSCULOSKELETAL: No obvious deformities. NEUROLOGICAL: Intubated sedated. Opens eyes to painful stimuli. Moves extremities purposefully localizes to pain. 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 Neurosurgery Dr. Gonzalez - s/p Evacuation of subdural hemorrhage 08/31 - F/U CT head 09/01 shows expansion L parenchymal hemorrhage, but good evacuation R SDH - 2% saline at 40 ml. Propofol for sedation and vent synchrony postintubation, daily sedation hold approved by N/S - Transfuse 2 unit pheresed platelets 09/01 in view of thrombocytopenia and ICH - IV Thiamine. Ativan for seizures. EEG shows encephalopathy and no seizure - Loaded with Cerebyx 1 g and continue 100 mg every 8 hours. - Psych re consult once stable and extubated Cardiovascular: Hypertension, uncontrolled - Labetalol when necessary to keep SBP less than 150 mmHg, currently well controlled - Cardene infusion to keep systolic blood pressure less than 150 - Normal saline IV fluid at 150 ml per hour, 2% saline as above. Na 142 today Pulmonary: Acute respiratory failure COPD without exacerbation - Intubated due to severe agitation and for airway protection - Assist-control mechanical ventilation, vent bundle - DuoNeb every 6 hours when necessary - Start SBT mental status won't permit extubation GI/liver: History of hepatitis C and liver cirrhosis - Tube feeds with Jevity, IV famotidine - Bowel regimen Renal/: - IV hydration, follow intake output, monitor and replete electrolytes, follow BUN/creatinine. ID: - No indication for antibiotics at this time - perioperative antibiotics per Dr. Gonzalez Endocrine: - Sliding scale insulin for glycemic control if needed Heme: Thrombocytopenia - Follow CBC and coags. Transfuse blood products and vitamin K as needed - 2 U platelets 09/01 Prophylaxis: - Pepcid/SCDs. No subcutaneous heparin due to subdural hemorrhage Further recommendations per Dr. Gonzalez Overall impression: Unable to wean from ventilator. Trach after extubation attempt likely course. Deep Johnson MD Sep 05, 2017 10:55
[2017-09-05] MEDS: PHENYTOIN INJ 100 MG/2 ML VIAL IV PUSH SCH ×2 (13:37→21:55)
[2017-09-05] MEDS: SODIUM CHLORIDE 23.4% INJ 188 MEQ in SODIUM CHLOR 0.9% 1000 ML INJ 1,000 ML IV SCH ×2 (19:04→20:15)
[2017-09-06] VITALS (17 sets, daily range): BP systolic 103–124; BP diastolic 59–73; PULSE 86–113; RESP 16–28; TEMP 98.3–99.6; O2SAT 94–100
[2017-09-06] MEDS: CHLORHEXIDINE GLUCONATE 2 % 1 PACK (2 CLOTHS) TOP SCH (04:00)
[2017-09-06 05:02] LABS: BICARBONATE 29.3 MEQ/L (21.0-32.0); POTASSIUM 3.8 MEQ/L (3.5-5.1)
[2017-09-06] MEDS: PHENYTOIN INJ 100 MG/2 ML VIAL IV PUSH SCH ×3 (05:40→21:17)
[2017-09-06] MEDS: THIAMINE INJ 100 MG in SODIUM CHLORIDE 0.9% INJ 100 ML IV SCH (07:34)
[2017-09-06] MEDS: FAMOTIDINE 20 MG/2 ML VIAL IV PUSH SCH (07:34)
[2017-09-06] MEDS: CHLORHEXIDINE 0.12% (ORAL KIT) 15 ML CUP MT SCH ×2 (07:35→20:00)
[2017-09-06] MEDS: SODIUM CHLORIDE 0.9% FLUSH 10 ML FLUSH IV FLUSH SCH ×2 (07:35→20:12)
[2017-09-06] MEDS: DOCUSATE SODIUM 50 MG/SENNA 8.6 MG TAB PO SCH ×2 (07:35→20:12)
--- NOTE | 2017-09-06 09:56 | HHI.CCPN ---
Subjective Remarks/Hospital Course Patient is a 66-year-old white male who was admitted to the psychiatric service under Blake act on 08/27/17. He has history of Wernicke-Korsakoff syndrome, TBI with subdural hematoma, previous TBI with subarachnoid hemorrhage, suicidal ideation, alcohol abuse, COPD and alcohol-induced cirrhosis. Patient was hospitalized here 08/07/17 through 08/23/17 after passing out at a bar and sustaining a traumatic brain injury. At that time he did have bilateral subdural hemorrhages and small bitemporal hemorrhages. Patient was managed conservatively (N/S Dr. Duque) and eventually was discharged to [facility]. Prior to this he was admitted in March 2017 for TBI and subarachnoid hemorrhage. Psych admitting diagnosis was dementia with behavioral disturbances and aggressive behavior [facility]. Today 08/30/17 a Halicat was called after patient was found on the floor. Apparently patient was in his normal state today a.m.. Nursing staff responded to hearing a thud in his room, patient was found to be lying on the floor with foaming him from his mouth and incontinence to urine. Apparently nursing staff also noted some seizure-like activity. Patient was unresponsive and nonverbal, but eyes open. A stat CT of the head was done which showed increase in size of the acute on chronic subdural hemorrhage now 1.7 cm with mild midline shift. Patient was emergently transferred to the ICU and critical care medicine was consulted. I immediately evaluated the patient. His level of consciousness is improving but he is very agitated. I discussed with Dr. Gonzalez who also evaluated the patient. Because of increase in size of the bleed patient will need evacuation of the subdural hemorrhage. Transfuse 1 unit platelets to correct thrombocytopenia. Due to severe agitation and new increase in bleed patient will be intubated and placed on mechanical ventilation. Dr. Gonzalez has updated the power of civil rights attorney was agreeable to intubation and surgical evacuation of the subdural hemorrhage 08/31/17: Remains intubated sedated critically ill. Withdraws 4 extremities. Platelet count above 84 received transfusion today one pack units of platelets in anticipation of or. Dr. Gonzalez planning on evacuation of subdural hemorrhage 09/01/17: s/p Right craniotomy for subdural hemorrhage evacuation. CT of the head shows right subdural drain with improvement in the right subdural hemorrhage, small amount of residual hemorrhage and pneumocephalus. There is also enlargement of left temporal hematoma now measuring up to 6 cm, 3 mm of left-to- right midline shift. New 1.4 cm area of focal hemorrhage in the anterior inferior right temporal lobe. 09/02/17: No acute events overnight. On sedation hold opens eyes to painful stimuli withdraws all 4 extremities, localizes do not follow commands. Coags normal platelet count 95. 09/03: Unable to wean from ventilator. 09/04: Too tachypneic on CPAP trials. Unable to arouse. Probably will require trach. 09/05: Tolerating SBTs, will try to extubate but anticipate airway control problems. 09/06: passed SBT. still intermittently encephalopathic, but at times more awake. did not extubate yesterday due to cuff leak concerns. will attempt today. certainly high risk for re-intubation given persistently poor mental status. Objective Vital Signs Date Time Temp Pulse Resp B/P (MAP) Pulse Ox O2 Delivery O2 Flow Rate FiO2 09/06/17 08:00 93 09/06/17 07:36 100 30 09/06/17 04:00 99.6 16 116/69 (85) 09/03/17 04:59 Ventilator Intake and Output 09/06/17 09/06/17 09/06/17 07:59 15:59 23:59 Intake Total 699 ml Output Total 725 ml Balance -26 ml Result Diagram: 09/02/17 0404 09/06/[address] scan shows 1.7 cm right acute on chronic subdural hemorrhage with mild midline shift and pressure effect on right lateral ventricle Objective Remarks GENERAL: 66-year-old male intubated, sedated SKIN: warm/dry. HEAD: Normocephalic. EYES: Pupils equal and round. No scleral icterus. No injection or drainage. ENT: No nasal bleeding or discharge. orotracheally intubated NECK: Trachea midline. CARDIOVASCULAR: Regular rate and rhythm. Heart sounds normal. RESPIRATORY: Air entry equal bilaterally. equal chest rise. PSV 5/5/40%. GASTROINTESTINAL: Abdomen soft. Nontender. Nondistended. MUSCULOSKELETAL: No obvious deformities. NEUROLOGICAL: Intubated. encephalopathic. Opens eyes to painful stimuli. Moves extremities purposefully localizes to pain. KIM A/P Assessment and Plan ASSESSMENT/PLAN : 66yM s/p acute on chronic SDH with persistent encephalopathy and respiratory failure. think it is reasonable to give him a trial of extubation. pulmonary mechanics are acceptable. mental status is waxing-and- waning. high risk for decompensation and re-intubation, and if so, will need tracheostomy for further aggressive care. Neuro: Acute on chronic right subdural hemorrhage 1.7 cm with 4 mm midline shift Stable, evolving left intraparenchymal hemorrhage Acute encephalopathy Alcohol dependence Dementia with behavioral disturbances - Follow neuro status. Neurosurgery Dr. Gonzalez - s/p Evacuation of subdural hemorrhage 08/31 - F/U CT head 09/01 shows expansion L parenchymal hemorrhage, but good evacuation R SDH - 2% saline at 40 ml. - IV Thiamine. Ativan for seizures. EEG shows encephalopathy and no seizure - Loaded with Cerebyx 1 g and continue 100 mg every 8 hours. - Psych re consult once stable and extubated - recheck phenytoin level today - add provigil for wakefulness Cardiovascular: Hypertension- controlled. - Labetalol when necessary to keep SBP less than 150 mmHg, currently well controlled - 2% saline as above. Pulmonary: Acute hypoxic and hypercarbic respiratory failure COPD without exacerbation - Intubated due to severe agitation and for airway protection - vent bundle, hob at 30 degrees - DuoNeb every 6 hours when necessary - will trial extubation. high risk for re-intubation. will need trach if gets re -intubated. GI/liver: History of hepatitis C and liver cirrhosis - Tube feeds with Jevity, switch to PO famotidine. - Bowel regimen ID: - No indication for antibiotics at this time Endocrine: - Sliding scale insulin for glycemic control if needed Heme: Thrombocytopenia - Follow CBC and coags. Transfuse blood products and vitamin K as needed - 2 U platelets 09/01 Prophylaxis: - Pepcid/SCDs. No subcutaneous heparin due to subdural hemorrhage Further recommendations per Dr. Gonzalez Overall impression: Trach after extubation attempt likely course. Cornelius Dove MD Sep 06, 2017 09:56
[2017-09-06] MEDS: SODIUM CHLORIDE 1 GRAM TAB PO SCH ×2 (12:55→17:23)
[2017-09-06] MEDS: MODAFINIL 200 MG TAB PO SCH (12:55)
[2017-09-06] MEDS ORDERED: RESP: ALBUTEROL 2.5 MG/IPRATROPIUM 0.5 MG NEB (PRN) INH (15:30)
[2017-09-06] MEDS: RESP: ALBUTEROL 2.5 MG/IPRATROPIUM 0.5 MG NEB (SCH) INH ×3 (15:53→23:55)
[2017-09-06] MEDS: SODIUM CHLORIDE 23.4% INJ 188 MEQ in SODIUM CHLOR 0.9% 1000 ML INJ 1,000 ML IV SCH (17:23)
[2017-09-06] MEDS: FAMOTIDINE 20 MG TAB NG SCH (20:12)
[2017-09-07] VITALS (14 sets, daily range): BP systolic 113–138; BP diastolic 63–131; PULSE 82–118; RESP 24–34; TEMP 98.1–101; O2SAT 95–100
[2017-09-07] MEDS: CHLORHEXIDINE GLUCONATE 2 % 1 PACK (2 CLOTHS) TOP SCH (04:00)
[2017-09-07] MEDS: RESP: ALBUTEROL 2.5 MG/IPRATROPIUM 0.5 MG NEB (SCH) INH ×6 (05:01→23:18)
[2017-09-07] MEDS: PHENYTOIN INJ 100 MG/2 ML VIAL IV PUSH SCH ×3 (05:33→21:11)
[2017-09-07 06:31] LABS: HEMATOCRIT 36.4 % (39.0-51.0); MEAN CELL VOLUME 94.8 FL (80.0-100.0); MEAN CORPUSCULAR HEMOGLOBIN 31.4 PG (27.0-34.0); MEAN CORPUSCULAR HGB CONC 33.1 % (32.0-36.0); PLATELET COUNT 144 TH/MM3 (150-450); RED BLOOD COUNT 3.84 MIL/MM3 (4.50-5.90); RED CELL DISTRIBUTION WIDTH 15.1 % (11.6-17.2); REVIEW FLAG FINAL; WHITE BLOOD COUNT 7.1 TH/MM3 (4.0-11.0)
[2017-09-07 07:01] LABS: POTASSIUM 4.1 MEQ/L (3.5-5.1)
[2017-09-07] MEDS: DOCUSATE SODIUM 50 MG/SENNA 8.6 MG TAB PO SCH ×2 (07:49→21:11)
[2017-09-07] MEDS: FAMOTIDINE 20 MG TAB NG SCH ×2 (07:49→21:11)
[2017-09-07] MEDS: LACTULOSE SYRUP 20 GM/30 ML CUP PO PRN (07:49)
[2017-09-07] MEDS: CHLORHEXIDINE 0.12% (ORAL KIT) 15 ML CUP MT SCH ×2 (07:50→20:00)
[2017-09-07] MEDS: SODIUM CHLORIDE 0.9% FLUSH 10 ML FLUSH IV FLUSH SCH ×2 (07:50→21:00)
[2017-09-07] MEDS: THIAMINE INJ 100 MG in SODIUM CHLORIDE 0.9% INJ 100 ML IV SCH (07:58)
[2017-09-07] MEDS: MODAFINIL 200 MG TAB PO SCH (07:58)
[2017-09-07] MEDS: SODIUM CHLORIDE 1 GRAM TAB PO SCH ×3 (07:58→16:54)
--- NOTE | 2017-09-07 11:00 | HHI.CCPN ---
Subjective Remarks/Hospital Course Patient is a 66-year-old white male who was admitted to the psychiatric service under Blake act on 08/27/17. He has history of Wernicke-Korsakoff syndrome, TBI with subdural hematoma, previous TBI with subarachnoid hemorrhage, suicidal ideation, alcohol abuse, COPD and alcohol-induced cirrhosis. Patient was hospitalized here 08/07/17 through 08/23/17 after passing out at a bar and sustaining a traumatic brain injury. At that time he did have bilateral subdural hemorrhages and small bitemporal hemorrhages. Patient was managed conservatively (N/S Dr. Duque) and eventually was discharged to [facility]. Prior to this he was admitted in March 2017 for TBI and subarachnoid hemorrhage. Psych admitting diagnosis was dementia with behavioral disturbances and aggressive behavior towards staff at [facility]. Today 08/30/17 a Halicat was called after patient was found on the floor. Apparently patient was in his normal state today a.m.. Nursing staff responded to hearing a thud in his room, patient was found to be lying on the floor with foaming him from his mouth and incontinence to urine. Apparently nursing staff also noted some seizure-like activity. Patient was unresponsive and nonverbal, but eyes open. A stat CT of the head was done which showed increase in size of the acute on chronic subdural hemorrhage now 1.7 cm with mild midline shift. Patient was emergently transferred to the ICU and critical care medicine was consulted. I immediately evaluated the patient. His level of consciousness is improving but he is very agitated. I discussed with Dr. Gonzalez who also evaluated the patient. Because of increase in size of the bleed patient will need evacuation of the subdural hemorrhage. Transfuse 1 unit platelets to correct thrombocytopenia. Due to severe agitation and new increase in bleed patient will be intubated and placed on mechanical ventilation. Dr. Gonzalez has updated the power of collections attorney was agreeable to intubation and surgical evacuation of the subdural hemorrhage 08/31/17: Remains intubated sedated critically ill. Withdraws 4 extremities. Platelet count above 84 received transfusion today one pack units of platelets in anticipation of or. Dr. Gonzalez planning on evacuation of subdural hemorrhage 09/01/17: s/p Right craniotomy for subdural hemorrhage evacuation. CT of the head shows right subdural drain with improvement in the right subdural hemorrhage, small amount of residual hemorrhage and pneumocephalus. There is also enlargement of left temporal hematoma now measuring up to 6 cm, 3 mm of left-to- right midline shift. New 1.4 cm area of focal hemorrhage in the anterior inferior right temporal lobe. 09/02/17: No acute events overnight. On sedation hold opens eyes to painful stimuli withdraws all 4 extremities, localizes do not follow commands. Coags normal platelet count 95. 09/03: Unable to wean from ventilator. 09/04: Too tachypneic on CPAP trials. Unable to arouse. Probably will require trach. 09/05: Tolerating SBTs, will try to extubate but anticipate airway control problems. 09/06: passed SBT. still intermittently encephalopathic, but at times more awake. did not extubate yesterday due to cuff leak concerns. will attempt today. certainly high risk for re-intubation given persistently poor mental status. 09/07: extubated yesterday. mental status still poor, although protects airway. needs aggressive PT and pulmonary toilet. Objective Vital Signs Date Time Temp Pulse Resp B/P (MAP) Pulse Ox O2 Delivery O2 Flow Rate FiO2 09/07/17 10:00 114 09/07/17 08:00 98.8 28 118/68 (85) 96 09/07/17 07:23 Nasal Cannula 2.00 09/06/17 10:51 30 Intake and Output 09/07/17 09/07/17 09/08/17 08:00 16:00 00:00 Intake Total 771 ml Output Total 2450 ml Balance -1679 ml Result Diagram: 09/07/17 0554 09/07/[address] scan shows 1.7 cm right acute on chronic subdural hemorrhage with mild midline shift and pressure effect on right lateral ventricle Objective Remarks GENERAL: 66-year-old male lying in bed, encephalopathic SKIN: warm/dry. HEAD: Normocephalic. EYES: Pupils equal and round. No scleral icterus. No injection or drainage. ENT: No nasal bleeding or discharge. NECK: Trachea midline. CARDIOVASCULAR: Regular rate and rhythm. RESPIRATORY: patent airway. protecting airway. equal chest rise. GASTROINTESTINAL: Abdomen soft. Nontender. Nondistended. MUSCULOSKELETAL: No obvious deformities. NEUROLOGICAL: RASS -3. Opens eyes to painful stimuli. Moves extremities purposefully localizes to pain. KIM A/P Assessment and Plan ASSESSMENT/PLAN : 66yM s/p acute on chronic SDH with persistent encephalopathy and respiratory failure. protecting airway and extubated. however, given poor mental status, high risk for re-intubation and tracheostomy. will work with aggressive pulmonary toilet and PT. Neuro: Acute on chronic right subdural hemorrhage 1.7 cm with 4 mm midline shift Stable, evolving left intraparenchymal hemorrhage Acute encephalopathy Alcohol dependence Dementia with behavioral disturbances - Follow neuro status. Neurosurgery Dr. Gonzalez - s/p Evacuation of subdural hemorrhage 08/31 - F/U CT head 09/01 shows expansion L parenchymal hemorrhage, but good evacuation R SDH - 2% saline at 40 ml. - IV Thiamine. Ativan for seizures. EEG shows encephalopathy and no seizure - Loaded with Cerebyx 1 g and continue 100 mg every 8 hours. - Psych re consult when mental status improves. currently could not participate in psych eval. - phenytoin level subtherapeutic. no evidence of active seizures. - Provigil for wakefulness Cardiovascular: Hypertension- controlled. - Labetalol when necessary to keep SBP less than 150 mmHg, currently well controlled - d/c 2% saline. Pulmonary: Acute hypoxic and hypercarbic respiratory failure - improving. COPD without exacerbation - Intubated due to severe agitation and for airway protection - vent bundle, hob at 30 degrees - DuoNeb every 6 hours when necessary - extubated 09/06. high risk for re-intubation. cannot participate in most pulmonary toileting exercises. aggressive PT. nebs. GI/liver: History of hepatitis C and liver cirrhosis - Tube feeds with Jevity, PO famotidine. - Bowel regimen ID: - No indication for antibiotics at this time Endocrine: - Sliding scale insulin for glycemic control if needed Heme: Thrombocytopenia - Follow CBC and coags. Transfuse blood products and vitamin K as needed - 2 U platelets 09/01 Prophylaxis: - Pepcid/SCDs. No subcutaneous heparin due to subdural hemorrhage Further recommendations per Cornelius Pfeiffer MD Sep 07, 2017 11:00
[2017-09-07] MEDS ORDERED: MAGNESIUM CITRATE SOLN 300 ML BTL PO ONE (13:45)
[2017-09-07] MEDS: BISACODYL 10 MG SUPP RECTAL SCH (14:16)
[2017-09-07] MEDS ORDERED: MORPHINE SULFATE 4 MG/ML INJ IV PUSH ONE (16:30)
[2017-09-08] VITALS (20 sets, daily range): BP systolic 78–131; BP diastolic 50–73; PULSE 86–150; RESP 16–26; TEMP 98.6–99.1; O2SAT 90–100
[2017-09-08] MEDS: CHLORHEXIDINE GLUCONATE 2 % 1 PACK (2 CLOTHS) TOP SCH (04:00)
[2017-09-08] MEDS: RESP: ALBUTEROL 2.5 MG/IPRATROPIUM 0.5 MG NEB (SCH) INH ×5 (04:25→20:00)
[2017-09-08 05:04] LABS: HEMATOCRIT 37.6 % (39.0-51.0); MEAN CELL VOLUME 94.3 FL (80.0-100.0); MEAN CORPUSCULAR HEMOGLOBIN 31.2 PG (27.0-34.0); MEAN CORPUSCULAR HGB CONC 33.1 % (32.0-36.0); PLATELET COUNT 135 TH/MM3 (150-450); RED BLOOD COUNT 3.98 MIL/MM3 (4.50-5.90); RED CELL DISTRIBUTION WIDTH 15.5 % (11.6-17.2); REVIEW FLAG FINAL; WHITE BLOOD COUNT 8.2 TH/MM3 (4.0-11.0)
[2017-09-08] MEDS: PHENYTOIN INJ 100 MG/2 ML VIAL IV PUSH SCH ×3 (05:15→21:39)
[2017-09-08 05:27] LABS: BICARBONATE 32.9 MEQ/L (21.0-32.0)
[2017-09-08] MEDS ORDERED: ROCURONIUM INJ 50 MG/5 ML VIAL IV ONE ×2 (08:45→11:45)
[2017-09-08] MEDS ORDERED: MIDAZOLAM HCL 5 MG/ML VIAL (1 ML) IV ONE (08:45)
[2017-09-08] MEDS ORDERED: ETOMIDATE 20 MG/10 ML VIAL IV PUSH ONE (08:45)
--- NOTE | 2017-09-08 08:47 | HHI.CCPN ---
Subjective Remarks/Hospital Course Patient is a 66-year-old white male who was admitted to the psychiatric service under Blake act on 08/27/17. He has history of Wernicke-Korsakoff syndrome, TBI with subdural hematoma, previous TBI with subarachnoid hemorrhage, suicidal ideation, alcohol abuse, COPD and alcohol-induced cirrhosis. Patient was hospitalized here 08/07/17 through 08/23/17 after passing out at a bar and sustaining a traumatic brain injury. At that time he did have bilateral subdural hemorrhages and small bitemporal hemorrhages. Patient was managed conservatively (N/S Dr. Duque) and eventually was discharged to [facility]. Prior to this he was admitted in March 2017 for TBI and subarachnoid hemorrhage. Psych admitting diagnosis was dementia with behavioral disturbances and aggressive behavior towards staff at alf. Today 08/30/17 a Halicat was called after patient was found on the floor. Apparently patient was in his normal state today a.m.. Nursing staff responded to hearing a thud in his room, patient was found to be lying on the floor with foaming him from his mouth and incontinence to urine. Apparently nursing staff also noted some seizure-like activity. Patient was unresponsive and nonverbal, but eyes open. A stat CT of the head was done which showed increase in size of the acute on chronic subdural hemorrhage now 1.7 cm with mild midline shift. Patient was emergently transferred to the ICU and critical care medicine was consulted. I immediately evaluated the patient. His level of consciousness is improving but he is very agitated. I discussed with Dr. Gonzalez who also evaluated the patient. Because of increase in size of the bleed patient will need evacuation of the subdural hemorrhage. Transfuse 1 unit platelets to correct thrombocytopenia. Due to severe agitation and new increase in bleed patient will be intubated and placed on mechanical ventilation. Dr. Gonzalez has updated the power of attorney lawyer was agreeable to intubation and surgical evacuation of the subdural hemorrhage 08/31/17: Remains intubated sedated critically ill. Withdraws 4 extremities. Platelet count above 84 received transfusion today one pack units of platelets in anticipation of or. Dr. Gonzalez planning on evacuation of subdural hemorrhage 09/01/17: s/p Right craniotomy for subdural hemorrhage evacuation. CT of the head shows right subdural drain with improvement in the right subdural hemorrhage, small amount of residual hemorrhage and pneumocephalus. There is also enlargement of left temporal hematoma now measuring up to 6 cm, 3 mm of left-to- right midline shift. New 1.4 cm area of focal hemorrhage in the anterior inferior right temporal lobe. 09/02/17: No acute events overnight. On sedation hold opens eyes to painful stimuli withdraws all 4 extremities, localizes do not follow commands. Coags normal platelet count 95. 09/03: Unable to wean from ventilator. 09/04: Too tachypneic on CPAP trials. Unable to arouse. Probably will require trach. 09/05: Tolerating SBTs, will try to extubate but anticipate airway control problems. 09/06: passed SBT. still intermittently encephalopathic, but at times more awake. did not extubate yesterday due to cuff leak concerns. will attempt today. certainly high risk for re-intubation given persistently poor mental status. 09/07: extubated yesterday. mental status still poor, although protects airway. needs aggressive PT and pulmonary toilet. 09/08: Patient is up in a stretcher chair but unresponsive desaturating, Oxygen saturation is 87% on 10 L simple mask. Patient is unable to open eyes localizes to pain with left upper extremity with no eye-opening. He is not protecting airway, he is tachycardic in 120s. We'll place back on the bed and proceed with re intubation, and possible trach in the afternoon. I briefly spoke to the DANK Dumas, who requested reintubation. We'll consult palliative care to address goals of care Objective Vital Signs Date Time Temp Pulse Resp B/P (MAP) Pulse Ox O2 Delivery O2 Flow Rate FiO2 09/08/17 06:00 86 09/08/17 05:00 93 Simple Mask 10.00 09/08/17 04:00 99.0 26 131/66 (87) 09/06/17 10:51 30 Intake and Output 09/08/17 09/08/17 09/09/17 08:00 16:00 00:00 Intake Total 662 ml Output Total 1000 ml Balance -338 ml Result Diagram: 09/08/1741909/08/[address] scan shows 1.7 cm right acute on chronic subdural hemorrhage with mild midline shift and pressure effect on right lateral ventricle Objective Remarks GENERAL: 66-year-old male sitting up in stretcher chair but is unresponsive tachycardic hypoxemic SKIN: warm/dry. HEAD: Normocephalic. EYES: Pupils equal and round. No scleral icterus. No injection or drainage. ENT: No nasal bleeding or discharge. NECK: Trachea midline. CARDIOVASCULAR: Regular rate and rhythm. RESPIRATORY: Patient is hypoxemic tachypneic, not protecting airway. Air entry coarse rhonchi, bilaterally GASTROINTESTINAL: Abdomen soft. Nontender. Nondistended. MUSCULOSKELETAL: No obvious deformities. NEUROLOGICAL: Patient unresponsive, no eye opening. Localizes with left upper extremity. No response to pain or any other extremities. Tachypneic and tachycardic as above A/P Assessment and Plan ASSESSMENT/PLAN : 66yM s/p acute on chronic SDH with persistent encephalopathy and respiratory failure. protecting airway and extubated. however, given poor mental status, high risk for re-intubation and tracheostomy. will work with aggressive pulmonary toilet and PT. Neuro: Acute on chronic right subdural hemorrhage 1.7 cm with 4 mm midline shift Stable, evolving left intraparenchymal hemorrhage Acute encephalopathy Alcohol dependence Dementia with behavioral disturbances - Worsening neuro status. CT of the head stat after intubation 09/08. Neurosurgery Dr. Gonzalez - s/p Evacuation of subdural hemorrhage 08/31 - F/U CT head 09/01 shows expansion L parenchymal hemorrhage, but good evacuation R SDH - 2% saline at 40 ml. - IV Thiamine. Ativan for seizures. EEG shows encephalopathy and no seizure - Loaded with Cerebyx 1 g and continue 100 mg every 8 hours. - Psych re consult when mental status improves. currently could not participate in psych eval. - phenytoin level subtherapeutic. no evidence of active seizures. - Provigil for wakefulness Cardiovascular: Hypertension- controlled. - Labetalol when necessary to keep SBP less than 150 mmHg, currently well controlled - d/c 2% saline. Pulmonary: Acute hypoxic and hypercarbic respiratory failure COPD without exacerbation - Intubated 08/30 due to severe agitation and for airway protection. extubated 09/06. high risk for re-intubation. - Reintubated for acute hypoxemia and airway protection on 09/08/17 - Consult palliative care to establish goals of care - vent bundle, hob at 30 degrees - DuoNeb every 6 hours when necessary - Zosyn to cover for aspiration GI/liver: History of hepatitis C and liver cirrhosis - Tube feeds with Jevity, PO famotidine. - Bowel regimen ID: Probable aspiration - Start Zosyn for possible aspiration - DC antibiotic if culture is negative Endocrine: - Sliding scale insulin for glycemic control if needed Heme: Thrombocytopenia - Follow CBC and coags. Transfuse blood products and vitamin K as needed - 2 U platelets 09/01 Prophylaxis: - Pepcid/SCDs. No subcutaneous heparin due to subdural hemorrhage Discussed with Dr. Gonzalez. Also discussed with DANK eKy Patient is critically ill with acute hypoxemic respiratory failure worsening encephalopathy and probable sepsis. He may require trach as he is unable to protect airway. Patient was intubated and placed on mechanical ventilation. Palliative care consult to address goals of care CCT 40 MIN excluding procedures Daria Cameron MD Sep 08, 2017 08:47
[2017-09-08] MEDS: BISACODYL 10 MG SUPP RECTAL SCH (09:00)
[2017-09-08] MEDS ORDERED: PROPOFOL 500 MG/50 ML INJ 50 ML ONE (09:07)
--- NOTE | 2017-09-08 09:10 | PD.PROCEDR ---
Procedure Note Procedure INTUBATION: The patient was put in optimal position for the procedure. Rapid sequence intubation was initiated by me using 20 milligrams of etomidate IV and 5 milligrams of Versed IV, and 50 mg IV Rocuronium. DL with Mac 4 blade Grade 2 view. Large amount of thick yellow secretions obstructing the glottic opening, which was suctioned out. The patient was intubated with a 8 cuffed endotracheal tube. Tube placement was confirmed by visualization of the tube and balloon passing through the cords, capnometry and subsequent chest x-ray. Breath sounds were equal and well aerated bilaterally postintubation. No breath sounds over stomach. Patient tolerated procedure well. I briefly talked to by mouth prior to intubation and she requested intubation and mechanical ventilation at this time. I will consult palliative care to address goals of care Daria Cameron MD Sep 08, 2017 09:10
[2017-09-08] MEDS: CHLORHEXIDINE 0.12% (ORAL KIT) 15 ML CUP MT SCH ×3 (09:16→20:00)
[2017-09-08] MEDS: SODIUM CHLORIDE 0.9% FLUSH 10 ML FLUSH IV FLUSH SCH ×2 (09:17→20:19)
--- NOTE | 2017-09-08 09:45 | RADRPT ---
EXAM DATE/TIME: 09/08/2017 09:19 [facility] COMPARISON: CHEST SINGLE AP, August 15, 2017, 15:14. CHEST SINGLE AP, August 30, 2017, 14:24. CHEST SINGLE AP, August 30, 2017, 15:51. INDICATIONS : Post intubation. MEDICAL HISTORY : Hepatitis C. Cardiovascular disease. Subdural 04/2017 SURGICAL HISTORY : Tonsillectomy. ENCOUNTER: Subsequent ACUITY: 2 weeks PAIN SCORE: Non-responsive. LOCATION: Bilateral chest FINDINGS: Portable AP view of the chest demonstrates a normal-sized cardiac silhouette. Endotracheal tube tip m easures 2.2 cm from the ailin. Nasogastric tube extends into the stomach. Multiple EKG lines overlie the patient. There is left lung volume loss with left basilar pleural-parenchymal opacity. No pneumo thorax is identified. Right lung is hyperexpanded. CONCLUSION: 1. Endotracheal tube tip measures 2.2 cm from the ailin. 2. Left lung volume loss/collapse with left basilar opacity most likely representing atelectasis. How ever, there could be left lung consolidation as well. Rakesh Miramontes MD on September 08, 2017 at 9:41 Board Certified Radiologist. This report was verified electronically.
[2017-09-08] MEDS: PIPERACIL-TAZO 4.5 GM PREMIX 100 ML IV SCH ×3 (09:51→21:38)
[2017-09-08] MEDS: THIAMINE INJ 100 MG in SODIUM CHLORIDE 0.9% INJ 100 ML IV SCH (09:51)
[2017-09-08] MEDS: MODAFINIL 200 MG TAB PO SCH (09:52)
[2017-09-08] MEDS: SODIUM CHLORIDE 1 GRAM TAB PO SCH ×3 (09:52→18:26)
[2017-09-08] MEDS: FAMOTIDINE 20 MG TAB NG SCH ×2 (09:52→21:37)
[2017-09-08] MEDS: DOCUSATE SODIUM 50 MG/SENNA 8.6 MG TAB PO SCH ×2 (09:52→21:37)
--- NOTE | 2017-09-08 10:28 | HHI.NSPN ---
(Bhaskar Bazan) History Chief Complaint: Intubated and sedated s/p right crani for SDH. (Bhaskar Bazan) Interval History 66-year-old gentleman who was admitted to the psychiatric [facility] three days ago under the Blake Act. Prior to that, he was in [facility] facility recuperating after a traumatic brain injury with a left temporal lobe hemorrhage and small right parietal subdural hemorrhage. This was treated nonsurgically. He was discharged a couple of weeks ago to rehab. At the rehab place three days ago he was using a pair of scissors to cut electrical cords and also pull his teeth and was being very aggressive towards the staff. He has had some difficulty with his speech and confusion and short-term memory loss ever since his traumatic brain injury. According to his power of ip network architect, he has had multiple admissions recently over the past couple of months for traumatic brain injury and bleeds related to falls and alcohol abuse. Apparently at this afternoon the patient was found on the floor by the psychiatric nursing staff and was not responsive and was incontinent of his urine and it was felt like he may have had a seizure. He was taken to the CT scanner for the CT scan of the head and which shows a right frontoparietooccipital lobe acute on chronic subdural hemorrhage measuring about 17 mm in thickness with about 4 mm [id number] shift. This has progressed since his previous CT scan a couple weeks ago. He was transferred to the intensive care unit and I was contacted by the cell biology scientist. The patient is starting to respond more and is now awake, although is confused and moving all four extremities, although less spontaneous on the left side. He is starting to verbalize also whereas in the psychiatric [facility] he was unresponsive with contractures and spasms. 09/01/17: Pt sedated on Diprivan. Not opening eyes. Pupils 3mm bilaterally reactive bilaterally. Withdraws all 4 extremities to pain. 09/02/17: Pt sedated on Diprivan. Not opening eyes. Withdraws all 4 extremities to pain left side more than right side. Pupils 3mm bilaterally reactive bilaterally. Intubated. 09/03/17: Pt sedated on Diprivan but on hold for 45min. Not opening eyes but moves head to voice. Not following commands. 09/04/17: Pts Diprivan being continuously held. Not opening eyes but moves head toward side of bed voice is coming from. Not following commands. Pt Continuously trying to cough ET Tube out. Only mild sputum on ET suctioning. 09/05/17: Patient opening eyes slightly to voice. Pupils 3 mm bilaterally. Not following commands. 09/08/17: Pt was reintubated this morning. Reportedly was very lethargic. Currently on Diprivan drip. Not following commands. (Bhaskar Bazan) System Review Comments Not able to obtain given clinical condition. (Bhaskar Bazan) Exam Results Vital Signs Date Time Temp Pulse Resp B/P (MAP) Pulse Ox O2 Delivery O2 Flow Rate FiO2 09/08/17 09:00 98 100 09/08/17 06:00 86 09/08/17 05:00 Simple Mask 10.00 09/08/17 04:00 99.0 26 131/66 (87) Intake and Output 09/08/17 09/08/17 09/09/17 08:00 16:00 00:00 Intake Total 662 ml Output Total 1000 ml Balance -338 ml (Bhaskar Bazan) Physical Examination General: Pt reintubated this morning. Pt sedated with stable vitals. Eyes: Pupils 3mm bilaterally reactive bilaterally. Resp: Intubated. Pressure controlled. FiO2 100%. RR 16. Peep 7. CTA bilaterally. Heart: NSR no murmurs. Abd: Soft positive bs Skin: Incision clean and dry without any signs of infection. Muscle: Spontaneous movement in all 4 extremities LUE more than RUE. Not following for muscle testing. Neuro: Pt on Diprivan drip. Not following commands. Not opening eyes. Pupils 3mm bilaterally reactive bilaterally. Withdraws extremities to pain. (Bhaskar Bazan) Lab, Micro, Other Results Last Impressions Chest X-Ray 09/08/17 0000 Signed Impressions: Service Date/Time: Friday, September 08, 2017 09:19 - CONCLUSION: 1. Endotracheal tube tip measures 2.2 cm from the ailin. 2. Left lung volume loss/collapse with left basilar opacity most likely representing atelectasis. However, there could be left lung consolidation as well. Rakesh Miramontes MD Head CT 09/03/17 0600 Signed Impressions: Service Date/Time: Sunday, September 03, 2017 04:44 - CONCLUSION: 1. Persistent right subdural hemorrhage and air with a right subdural drain in place. 2. Persistent parenchymal hemorrhage at the left temporal lobe. 3. New abnormalities are not seen. Rakesh Henry MD Laboratory Tests Test 09/08/17 04:20 White Blood Count 8.2 TH/MM3 Red Blood Count 3.98 MIL/MM3 Hemoglobin 12.4 GM/DL Hematocrit 37.6 % Mean Corpuscular Volume 94.3 FL Mean Corpuscular Hemoglobin 31.2 PG Mean Corpuscular Hemoglobin Concent 33.1 % Red Cell Distribution Width 15.5 % Platelet Count 135 TH/MM3 Mean Platelet Volume 7.4 FL Blood Urea Nitrogen 26 MG/DL Creatinine 0.59 MG/DL Random Glucose 186 MG/DL Calcium Level 9.8 MG/DL Sodium Level 143 MEQ/L Potassium Level 4.0 MEQ/L Chloride Level 105 MEQ/L Carbon Dioxide Level 32.9 MEQ/L Anion Gap 5 MEQ/L Estimat Glomerular Filtration Rate 137 ML/MIN (Bhaskar Bazan) Medical Decision Making Impression and Plan A: 66 y/o M s/p right 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 There is also resolving left temporal lobe hemorrhage and encephalomalacia from his previous injury. 2. Seizure likely related to the traumatic brain injury versus alcohol withdrawal. 3. Heavy alcohol abuse with associated cirrhosis. 4. Thrombocytopenia likely related to alcohol abuse. 5. COPD on continuous home oxygen. PLAN: Continue with close neuro checks Continue to monitor labs especially his thrombocytopenia. Continue with critical care. Follow up CT head ordered by [facility] (hBaskar Bazan) Attending Statement The exam, history, and the medical decision-making described in the above note were completed with the assistance of the mid-level provider. I reviewed and agree with the findings presented. I attest that I had a [id number] encounter with the patient on the same day, and personally performed and documented my assessment and findings in the medical record. No change in neurologic exam although not able to protect airway adequately requiring reintubation. Compliance Monitor Dr. Cameron will discuss with healthcare proxy whether they would like to proceed with tracheostomy or palliative care involvement. (Leighton Gonzalez MD) Bhaskar Bazan Sep 08, 2017 10:28 Leighton Gonzalez MD Sep 08, 2017 16:56
[2017-09-08 11:14] LABS: BLOOD GAS BASE EXCESS 4.8 mmol/L (-2-2); BLOOD GAS CARBOXYHEMOGLOBIN 1.7 % (0-4); BLOOD GAS HCO3 29 mmol/L (22-26); BLOOD GAS METHEMOGLOBIN 0.6 % (0-2); BLOOD GAS O2 HGB SATURATION 91 % (90-100); BLOOD GAS OXYGEN CONTENT 17.4 Vol % (12.0-20.0); BLOOD GAS PCO2 48 mmHg (38-42); BLOOD GAS PO2 68 mmHg (61-120); BLOOD GAS TOTAL HGB 13.5 G/DL (12.0-16.0); CRITICAL VALUE NO; OXYGEN DEVICE VENTILATOR; TEMP CORR TO 98.6
[2017-09-08 11:15] LABS: DRAW SITE LT RADIAL; FIO2 100 %; NUMBER OF ARTERIAL PUNCTURES 1; STAT NO; ULNAR PULSE PRESENT; VENT SETTINGS 16/600/PEEP7
[2017-09-08] MEDS ORDERED: PROPOFOL 1000 MG/100 ML INJ 100 ML IV PRN (11:45)
[2017-09-08] MEDS ORDERED: fentaNYL CITRATE 250 MCG/5 ML AMP IV PUSH ONE (11:45)
--- NOTE | 2017-09-08 12:44 | PD.PROCEDR ---
Procedure Note Procedure Procedure: Diagnostic and therapeutic Fiberoptic Bronchoscopy Diagnosis: Acute hypoxemic respiratory failure Indications: Acute hypoxemic respiratory failure, Consent: Written consent was obtained Anesthesia: Propofol IV, fentanyl IV, Rocuronium IV Description of the Procedure: The patient was sedated and mechanically ventilated. The patient was placed on 100% FIO2 and a volume control mode of ventilation. The fiberoptic bronchoscopy was inserted via 8.0 oral endotracheal tube. The trachea, right and left mainstem bronchi, and sub- segmental bronchi were evaluated. The endobronchial anatomy was normal. There was thick yellow secretions in LLL and MEGHANN bronchi and subsegmental bronchi, and BAL was performed and sample collected from LLL. The patient tolerated the procedure well with no hemodynamic instability or hypoxia. There were no immediate complications noted. At the conclusion of the procedure, the patient was placed back on their pre-procedure ventilatory settings, except PEEP increased to 12 and TV increased to 650. EBL was minimal. A chest x-ray has been ordered. I personally performed the procedure. Daria Cameron MD Sep 08, 2017 12:44
[2017-09-08] MEDS ORDERED: VANCOMYCIN INJ 1,150 MG in SODIUM CHLOR 0.9% 250 ML INJ 250 ML IV ONE (13:00)
--- NOTE | 2017-09-08 14:12 | PD.CONS ---
Consult Service Palliative Care Consult Requested By Dr. Jay Cameron Primary Care Physician Unknown Reason for Consultation a. To assist with evaluation and management of symptoms including:shortness of breath, confusion, pain and debility. b. To assist medical decision maker(s) with: better understanding of current medical conditions; weighing benefits/burdens of medical treatment options; making medical treatment decisions. HPI History of Present Illness Patient is a 66 years old male with a past medical history of Wernicke- Korsakoff syndrome, COPD, TBI with subdural hematoma, previous tibia with subarachnoid hemorrhage, suicidal ideation, alcohol abuse, and alcohol cirrhosis. In March 2017 patient was hospitalized for TBI and subarachnoid hemorrhage. Recent hospitalization was 08/07/17 after patient passed out in a bar and sustained a traumatic brain injury with a left temporal lobe hemorrhage and small right parietal subdural hemorrhage that were conservatively managed. Patient was discharged to [facility]. Patient was found with a scissors that he said he needed to pull his teeth out at [facility]. He was readmitted on 08/27/17 in Psych under [facility] for evaluation and treatment of dementia with behavioral and aggressive behavior towards nursing staff. On 08/30/17 patient was found on the floor, foaming in his mouth, incontinent of urine with seizure like activity in Psych. CT head revealed acute on chronic subdural hemorrhage now 1.7 cm with mild midline shift . Laboratory workup revealed WBC 8.3, hemoglobin 12.5, hematocrit 36.7, platelet count 76 , sodium 135, potassium 3.6, BUN/creatinine 16/07. Neurosurgeon Dr. Gonzalez consulted. Patient was transferred to ICU. Critical care management was consulted. Patient was intubated and placed on mechanical ventilation. He underwent right craniotomy for evacuation of subdural hemorrhage. Patient was extubated on 09/06 and had to be re-reintubated for airway protection on 09/08/17 due to unresponsiveness and desaturating in the 80s on 10 L simple mask .Clinical course complicated with poor mental status and respiratory failure requiring reintubation and placement on mechanical ventilation. Palliative care consulted for clarification of goals of care. Laboratory workup today revealing WBC 8.2, hemoglobin 12.4, hematocrit 37.6, platelet count 35, sodium 143, potassium 4.0, BUN/creatinine 26 0.59, calcium 9.8. Chest x-ray revealing left lung volume loss/collapse with left basilar opacity most likely representing atelectasis. Case discussed with Dr. Cameron. Brief telephone conversation with patient`s [facility]-Celeste Cassandra who is tearful over the phone and unable to provide psychosocial history. Planning on meeting with [facility] when she arrives at the hospital to visit with patient at 1700hrs. Patient`s [facility] Cassandra did not come in at 1700hrs-waited for till 1724hours for her, attempted to call with no response. Palliative care will attempt to call and plan for a meeting on 09/09/17. . Function/Cognitive Trajectory Patient has had multiple admissions recently over the past few months for traumatic brain injury, bleeds related to falls and alcohol abuse as well as suicidal ideation. Per ED visit in April of this year under [facility] for suicidal ideation it was reported by his roommate that patient drinks heavily and is unable to take care of himself and was requesting rehabilitation for patient. Patient was residing at [facility] prior to psych admission. Patient had some difficulty with his speech and confusion and short-term memory loss ever since his traumatic brain injury. . Review of Systems ROS Limitations: Intubated Constitutional: COMPLAINS OF: Pain, DENIES: Fever Eyes: DENIES: Eye inflammation Ears, nose, mouth, throat: DENIES: Nasal discharge Respiratory: COMPLAINS OF: Shortness of breath Genitourinary: COMPLAINS OF: Urinary incontinence Hematologic/Lymphatics: COMPLAINS OF: Bruising Neurologic: COMPLAINS OF: Headache, Speech Problems Psychiatric: COMPLAINS OF: Confusion, Agitation Other ROS: ROS obtained from medical records and clinical presentation. . Past Family Social History Coded Allergies: Sulfa (Sulfonamide Antibiotics) (Unverified Allergy, Severe, UNKNOWN - CHILD, 08/07/17) Past Medical History Alcohol dependence Liver cirrhosis Hepatitis C Dementia with behavioral disturbances Wernicke-Korsakoff`s Syndrome Traumatic brain injury, left temporal hemorrhage and right parietal subdural hemorrhage COPD on O2 L NC continuous Diabetes mellitus. . Reported Medications Folic Acid 1 Mg Tablet 1 Mg PO DAILY Seroquel (Quetiapine Fumarate) 25 Mg Tab 25 Mg PO BID Oxygen (O2) Device 2 Liter LIZA.CANULA CONTINUOUS Gnp Vitamin B-1 (Thiamine HCl) 100 Mg Tab 100 Mg PO DAILY Lantus Inj (Insulin Glargine) 1,000 Unit/10 Ml Vial 1 Units SQ HS Glucophage XR (Metformin HCl) 500 Mg Genet 500 Mg PO BID Current Medications Medications (Trade) Dose Ordered Sig/Sameera Route Start Time Stop Time Status Last Admin (NS Flush) 2 ml UNSCH PRN IV FLUSH 08/30/17 15:45 (NS Flush) 2 ml BID IV FLUSH 08/30/17 21:00 09/08/17 09:17 (Tylenol) 650 mg Q6H PRN PO 08/30/17 15:45 09/04/17 23:52 Miscellaneous Information 1 Q361D XX 08/30/17 15:45 (Chlorhexidine 2% Cloth) Taper DAILY@04 TOP 08/31/17 04:00 08/27/18 03:59 09/04/17 03:56 (Chlorhexidine 2% Cloth) 3 pack UNSCH PRN TOP 08/30/17 15:45 (Milk Of Magnesia Liq) 30 ml Q12H PRN PO 08/30/17 15:45 09/06/17 07:36 (Senokot) 17.2 mg Q12H PRN PO 08/30/17 15:45 (Dulcolax Supp) 10 mg DAILY PRN RECTAL 08/30/17 15:45 (Lactulose Liq) 30 ml DAILY PRN PO 08/30/17 15:45 09/07/17 07:49 Potassium Chloride 100 ml @ 50 mls/hr Q2H PRN IV 08/30/17 16:00 Potassium Chloride 100 ml @ 50 mls/hr Q2H PRN IV 08/30/17 16:00 09/03/17 11:00 (K-Lyte Cl Eff) 50 meq UNSCH PRN PO 08/30/17 16:00 09/04/17 06:02 Potassium Chloride 100 ml @ 25 mls/hr UNSCH PRN IV 08/30/17 16:00 Potassium Chloride 100 ml @ 50 mls/hr Q2H PRN IV 08/30/17 16:00 Magnesium Sulfate 4 gm/Sodium Chloride 100 ml @ 50 mls/hr UNSCH PRN IV 08/30/17 16:00 (Mag-Ox) 800 mg UNSCH PRN PO 08/30/17 16:00 Magnesium Sulfate 2 gm/Sodium Chloride 100 ml @ 50 mls/hr UNSCH PRN IV 08/30/17 16:00 (K-Phos) 2,000 mg Q4H PRN PO 08/30/17 16:00 Sodium Phosphate 30 mmol/Sodium Chloride 250 ml @ 42 mls/hr UNSCH PRN IV 08/30/17 16:00 (K-Phos) 2,000 mg UNSCH PRN PO/TUBE 08/30/17 16:00 Potassium Phosphate 30 mmol/ Sodium Chloride 260 ml @ 42 mls/hr UNSCH PRN IV 08/30/17 16:00 (Peridex 0.12% Liq) 15 ml BID@08,20 MT 08/30/17 20:00 09/08/17 09:16 (Dilantin Inj) 100 mg Q8HR IV PUSH 08/30/17 16:15 09/08/17 05:15 Thiamine HCl 100 mg/Sodium Chloride 101 ml @ 101 mls/hr DAILY IV 08/30/17 21:00 09/08/17 09:51 (Trandate Inj) 20 mg Q4H PRN IV PUSH 08/30/17 17:15 (Tess-Colace) 1 tab BID PO 09/02/17 14:30 09/08/17 09:52 (Provigil) 200 mg DAILY PO 09/06/17 11:00 09/08/17 09:52 (Sodium Chloride) 2 gm TIDPC PO 09/06/17 13:30 09/08/17 09:52 (Pepcid) 20 mg BID NG 09/06/17 21:00 09/08/17 09:52 (Duoneb Neb) 1 ampule Q4HR NEB INH 09/06/17 16:00 09/08/17 09:29 (Duoneb Neb) 1 ampule Q2HR NEB PRN INH 09/06/17 15:30 (Dulcolax Supp) 10 mg DAILY RECTAL 09/07/17 13:45 09/07/17 14:16 Piperacillin Sod/ Tazobactam Sod 100 ml @ 200 mls/hr Q6H IV 09/08/17 10:00 09/08/17 09:51 Vancomycin HCl 1150 mg/Sodium Chloride 261.5 ml @ 250 mls/hr ONCE ONCE IV 09/08/17 13:00 09/08/17 14:02 (Peridex 0.12% Liq) 15 ml BID@08,20 MT 09/08/17 20:00 Propofol 100 ml @ 2.268 mls/ hr TITRATE PRN IV 09/08/17 11:45 Substance Use Tobacco: Prior to hospitalization Positive tobacco abuse more than 1 pack per day Alcohol: Yes. ETOH abuse per medical records. Prescription med abuse: No Illicits:Positive for cocaine in his past medical record . Spiritual/Cultural Factors No Temple affiliation . Living Will: Copy in medical record Health Care Surrogate: Copy in medical record Date completed: April 30, 2016 . Health Care Surrogate(s): [facility] Cassandra Alonso [phone] . Documented care wishes: Standard verbiage . Ethical and Legal Issues None identified at this time. . Physical Exam Vital Signs Date Time Temp Pulse Resp B/P (MAP) Pulse Ox O2 Delivery O2 Flow Rate FiO2 09/08/17 10:00 122 09/08/17 09:00 98 100 09/08/17 08:00 113 09/08/17 07:00 90 Simple Mask 10.00 30 09/08/17 06:00 86 09/08/17 05:00 93 Simple Mask 10.00 09/08/17 04:00 102 09/08/17 04:00 99.0 114 26 131/66 (87) 98 09/08/17 02:00 102 09/08/17 00:00 99.1 97 25 127/60 (82) 96 09/08/17 00:00 98 09/07/17 22:00 82 09/07/17 20:01 97 Nasal Cannula 2.00 09/07/17 20:00 95 Nasal Cannula 3.00 09/07/17 20:00 85 09/07/17 20:00 99.6 85 25 131/63 (85) 96 09/07/17 18:00 118 09/07/17 16:00 114 09/07/17 16:00 100.0 107 24 113/65 (81) 95 09/07/17 14:00 99.0 09/07/17 14:00 112 Exam CONSTITUTIONAL/GENERAL: This is an adequately nourished patient, intubated, sedated on mechanical ventilation. TUBES/LINES/DRAINS:Right nare NGT, ETT,FC, PIVs, BUE soft restraints, SCDs. SKIN: No rashes, or lesions. Ecchymoses on upper extremities. No wounds seen anteriorly. Skin temperature appropriate. Not diaphoretic. HEAD: Normocephalic. Horse shoe-shaped surgical incision to Right temporoparietal head EYES: Pupils equal and round and reactive. Extraocular motions intact. No scleral icterus. No injection or drainage. Fundi not examined. ENT: Hearing grossly normal. Nose without bleeding or purulent drainage. Throat without visible erythema, exudates, masses, or lesions. NECK: Trachea midline. Supple, nontender. No palpable thyroid enlargement or nodularity. CARDIOVASCULAR: Regular rate and rhythm without murmurs, gallops, or rubs. No JVD. Peripheral pulses symmetric. RESPIRATORY/CHEST: Symmetric, unlabored respirations. Clear to auscultation. No wheezes, rales, or rhonchi. GASTROINTESTINAL: Abdomen soft, non-tender, nondistended. No guarding. Bowel sounds present. R nare NGT GENITOURINARY: Without palpable bladder distension. Mendoza catheter in place. MUSCULOSKELETAL: Extremities without clubbing, cyanosis, or edema. No joint tenderness or effusion noted. No calf tenderness. No mottling or clubbing. NEUROLOGICAL: intubated, sedated on mechanical ventilation. Withdraws to noxious stimulation with all 4 extremities. PSYCHIATRIC: No obvious anxiety/depression. no apparent hallucinations or other psychotic thought process. . Diagnostic Tests Laboratory Laboratory Tests Test 09/06/17 03:54 09/07/17 05:54 09/08/17 04:20 09/08/17 11:02 Blood Urea Nitrogen 16 MG/DL (7-18) 19 MG/DL (7-18) 26 MG/DL (7-18) Creatinine 0.45 MG/DL (0.60-1.30) 0.56 MG/DL (0.60-1.30) 0.59 MG/DL (0.60-1.30) Random Glucose 153 MG/DL (74-106) 177 MG/DL (74-106) 186 MG/DL (74-106) Calcium Level 8.7 MG/DL (8.5-10.1) 9.2 MG/DL (8.5-10.1) 9.8 MG/DL (8.5-10.1) Sodium Level 136 MEQ/L (136-145) 137 MEQ/L (136-145) 143 MEQ/L (136-145) Potassium Level 3.8 MEQ/L (3.5-5.1) 4.1 MEQ/L (3.5-5.1) 4.0 MEQ/L (3.5-5.1) Chloride Level 100 MEQ/L (98-107) 107 MEQ/L (98-107) 105 MEQ/L (98-107) Carbon Dioxide Level 29.3 MEQ/L (21.0-32.0) 22.0 MEQ/L (21.0-32.0) 32.9 MEQ/L (21.0-32.0) Anion Gap 7 MEQ/L (5-15) 8 MEQ/L (5-15) 5 MEQ/L (5-15) Estimat Glomerular Filtration Rate 187 ML/MIN (>89) 145 ML/MIN (>89) 137 ML/MIN (>89) Phenytoin (Dilantin) Level 3.2 MCG/ML (10.0-20.0) White Blood Count 7.1 TH/MM3 (4.0-11.0) 8.2 TH/MM3 (4.0-11.0) Red Blood Count 3.84 MIL/MM3 (4.50-5.90) 3.98 MIL/MM3 (4.50-5.90) Hemoglobin 12.0 GM/DL (13.0-17.0) 12.4 GM/DL (13.0-17.0) Hematocrit 36.4 % (39.0-51.0) 37.6 % (39.0-51.0) Mean Corpuscular Volume 94.8 FL (80.0-100.0) 94.3 FL (80.0-100.0) Mean Corpuscular Hemoglobin 31.4 PG (27.0-34.0) 31.2 PG (27.0-34.0) Mean Corpuscular Hemoglobin Concent 33.1 % (32.0-36.0) 33.1 % (32.0-36.0) Red Cell Distribution Width 15.1 % (11.6-17.2) 15.5 % (11.6-17.2) Platelet Count 144 TH/MM3 (150-450) 135 TH/MM3 (150-450) Mean Platelet Volume 7.6 FL (7.0-11.0) 7.4 FL (7.0-11.0) Blood Gas Puncture Site LT RADIAL Blood Gas Patient Temperature 98.6 Blood Gas HCO3 29 mmol/L (22-26) Blood Gas Base Excess 4.8 mmol/L (-2-2) Blood Gas Oxygen Saturation 91 % (90-100) Arterial Blood pH 7.41 (7.380-7.420) Arterial Blood Partial Pressure CO2 48 mmHg (38-42) Arterial Blood Partial Pressure O2 68 mmHg (61-120) Arterial Blood Oxygen Content 17.4 Vol % (12.0-20.0) Arterial Blood Carboxyhemoglobin 1.7 % (0-4) Arterial Blood Methemoglobin 0.6 % (0-2) Blood Gas Hemoglobin 13.5 G/DL (12.0-16.0) Oxygen Delivery Device VENTILATOR Blood Gas Ventilator Setting 16/600/PEEP7 Blood Gas Inspired Oxygen 100 % Result Diagram: 09/08/17 0420 09/08/17 0420 Microbiology Microbiology Date/Time Source Procedure Growth Status 09/08/17 11:00 Sputum Endotracheal Gram Stain Pending Received 09/08/17 11:00 Sputum Endotracheal Sputum Culture Pending Received Imaging Last Impressions Chest X-Ray 09/08/17 0000 Signed Impressions: Service Date/Time: Friday, September 08, 2017 09:19 - CONCLUSION: 1. Endotracheal tube tip measures 2.2 cm from the ailin. 2. Left lung volume loss/collapse with left basilar opacity most likely representing atelectasis. However, there could be left lung consolidation as well. Rakesh Miramontes MD Head CT 09/03/17 0600 Signed Impressions: Service Date/Time: Sunday, September 03, 2017 04:44 - CONCLUSION: 1. Persistent right subdural hemorrhage and air with a right subdural drain in place. 2. Persistent parenchymal hemorrhage at the left temporal lobe. 3. New abnormalities are not seen. Rakesh Henry MD Procedures 08/30/2017-intubated and placed on mechanical ventilation 09/06/2017-medical extubated 09/08/2017-Reintubated 09/08/2017-Bronchoscopy . Patient/Family Conference Family Conference Location: Telephone (brief telephone conversation on the telephone with [facility]-she was very tearful over the phone, stated that she will be in for a meeting at 1700hrs) Issues Discussed: * Palliative care role, purpose, approach * Additional medical, psychosocial, and spiritual history * Patients general health, functional status, and cognitive changes in the months leading up to the current hospitalization * Patient/family understanding of the current medical problems * Patient/family understanding of prognosis * Patients goals of care as best understood from advance directives and/or conversations and/or values * Current medical treatment options and benefits/burdens of those options * Likely scenarios comparing ongoing aggressive care with a transition to comfort measures only * Questions answered to the best of my ability * Palliative care contact information provided Assessment and Plan Disease Oriented Problem List: (1) Acute on chronic subdural hemorrhage with midline shift (2) Acute respiratory failure with hypoxia and hypercarbia (3) COPD (chronic obstructive pulmonary disease) (4) Acute encephalopathy (5) Thrombocytopenia (6) Probabe seizure (7) DEMENTIA IN OTH DISEASES CLASSD ELSWHR W BEHAVIORAL DISTURB (8) Hypertension Symptom Scale: (1) Shortness of breath 0-10 Scale: Unable to quantify Comment: Hx of COPD. Currently intubated s/p bronchoscopy 09/08/17 . (2) Pain 0-10 Scale: Unable to quantify (3) Confusion 0-10 Scale: Unable to quantify Comment: Multifactorial. Patient has had multiple TBI. Reports of confusion and short term memory ever since last TBI. Was recently [facility] at SNF and admitted in psych for dementia with behavioral and aggressive behavior. (4) Debility 0-10 Scale: Unable to quantify Comment: Progressive. Multiple hospital visits, x5 visits since April. Recent hospitalization for TBI and was discharged to a SNF. . Pertinent Non-Medical Issues Psychosocial: Spiritual: No moravian affiliation Legal: Patient has a [facility] and Living Will Ethical issues impacting care: None identified at this time. . Important Contacts Friend- [facility]- Celeste Yesi- [phone] Daughter- Alternate [facility]-Aneta Whalenhernesto . Prognosis Patient is a 66 years old male with a past medical history of Wernicke- Korsakoff syndrome, COPD, TBI with subdural hematoma, previous tibia with subarachnoid hemorrhage, suicidal ideation, alcohol abuse, and alcohol cirrhosis. Recent hospitalization was 08/07/17 after patient passed out in a bar and sustained a traumatic brain injury with a left temporal lobe hemorrhage and small right parietal subdural hemorrhage that were conservatively managed. Patient was found on the floor, foaming in his mouth, incontinent of urine and seizure like activity in Psych. CT head revealed acute on chronic subdural hemorrhage now 1.7 cm with mild midline shift. Patient underwent right craniotomy for evacuation of subdural hemorrhage. Clinical course complicated with poor mental status and respiratory failure requiring reintubation and placement on mechanical ventilation. Given ongoing comorbidities, patient remains at high risk for complications, deterioration and decline. . Plan PLAN: Legal decision maker: Patient is currently intubated, sedated on mechanical ventilation and unable to make his own medical decisions. Patient designated Cassandra Alonso who is currently making medical decisions for the patient and his daughter Aneta Cox as alternate HCS. Goals: Aggressive (Pending meeting with HCS.) CODE STATUS: Full Code- (Pending meeting with HCS.) SYMPTOMS: * Shortness of breath: Hx of COPD. Pt was intubated on 08/30/17 and extubated . Patient desaturating and reintubated s/p bronchoscopy 09/08/17. * Confusion: Multifactorial. Multiple TBI. Hx of Wernicke-Korsakoff syndrome. Reports of confusion and short term memory ever since last TBI. Hx of TBIs. s/p craniotomy with evacuation of hematoma 08/31/17. Patient had poor mentation after extubation. * Pain: Multifactorial. Multiple TBI. Reports of c/o headache in med Psych(per records). Patient s/p craniotomy with evacuation of hematoma 08/31/17. No medication ordered for pain. * Debility: Progressive. Multiple hospital visits, x5 visits since . Recent hospitalization for TBI and was discharged to a SNF and readmitted in psych. Recent acute on chronic SDH. Patient may benefit from physical, speech and occupational therapy. Palliative care will continue to follow the patient during hospital course as condition evolves, to assist patient/decision-maker with understanding of their medical conditions, weighing benefits/burdens of treatment options, for clarification of goals of treatment. Additionally will assist with any symptoms of palliative concern Thank you for the opportunity to participate in the care of Mr. Valentine. Attestation To help prompt me to consider important information that might be impacting today's encounter and assessment, information from prior notes written by myself or my colleagues may have been "brought forward" into today's note. My signature on this note, however, is an attestation that I personally performed the exam, history, and/or decision-making noted today, and, unless otherwise indicated, the interactions with patient, family, and staff as well as the review of records all occurred today. I also attest that the listed assessment and stated plan reflect my best clinical judgment today based on the combination of historical information, prior notes, and today's exam/ interactions. When time spent is documented, it refers only to time spent today by the signer, or if indicated, combined time spent today by collaborating physician/nurse practitioner. . Arpita Raphael Sep 08, 2017 13:57
--- NOTE | 2017-09-08 15:18 | RADRPT ---
EXAM DATE/TIME: 09/08/2017 14:42 [facility] COMPARISON: CT BRAIN W/O CONTRAST, September 03, 2017, 4:44. INDICATIONS : Evaluate bleed, altered mental status RADIATION DOSE: 61.08 CTDIvol (mGy) MEDICAL HISTORY : Cardiovascular disease. Seizures. Chronic obstructive pulmonary disease. SURGICAL HISTORY : None. ENCOUNTER: Subsequent ACUITY: 1 day PAIN SCALE: Non-responsive LOCATION: cranial TECHNIQUE: Multiple contiguous axial images were obtained of the head. Using automated exposure control and adj ustment of the mA and/or kV according to patient size, radiation dose was kept as low as reasonably a chievable to obtain optimal diagnostic quality images. DICOM format image data is available electro nically for review and comparison. FINDINGS: Patient is post recent right frontoparietal craniotomy with skin rc in place. The right extra-ax ial surgical drain has been removed in the interval. There is residual low density extra-axial fluid collection in the right parietal region measuring up to maximum thickness of 15 mm at the high convex ity. There is also stable extra-axial high density in the right frontal region measuring 5 mm. There is no midline shift. Mild pneumocephalus is present anteriorly on the right but decreased from the pr ior study. There is persistent edema in the left temporal lobe. The high density blood products but d ecreased in the prior study. No new blood products are seen. Ventricles are normal in size given the degree of atrophy present. CONCLUSION: 1. The left temporal lobe blood products have decreased in size and density since the prior study. Th ere is persistent residual surrounding edema. 2. The right-sided drain has been removed and there is persistent low density extra-axial collection in the right parietal region and high density likely within the right frontal region stable from the prior study. There is no midline shift. Rakesh Miramontes MD on September 08, 2017 at 15:11 Board Certified Radiologist. This report was verified electronically.
--- NOTE | 2017-09-08 15:49 | RADRPT ---
EXAM DATE/TIME: 09/08/2017 13:24 [facility] COMPARISON: CHEST SINGLE AP, September 08, 2017, 9:19. INDICATIONS : Post bronchoscopy. MEDICAL HISTORY : Cardiovascular disease. Seizures. Hepatitis C. SURGICAL HISTORY : Craniotomy. ENCOUNTER: Subsequent ACUITY: 1 month PAIN SCORE: Non-responsive. LOCATION: Bilateral chest FINDINGS: A single view of the chest demonstrates interval improvement in the aeration of the left base. Left b asilar effusion/consolidation persists, however. Right lung is grossly clear. No pneumothorax post br onchoscopy. Endotracheal tube remains appropriately positioned above the ialin the nasogastric tube entering the stomach. Degenerative spurring of the dorsal spine. Old healed fracture deformities of t he posterolateral upper left ribs.. CONCLUSION: 1. Interval improvement in the left basilar consolidation/effusion post bronchoscopy. There is still some consolidation/effusion remaining, however. No pneumothorax. 2. Right lung is grossly clear with some minimal basilar atelectatic changes. 3. Stable position of life support tubes including the endotracheal and nasogastric tubes. Ethan Clements MD on September 08, 2017 at 15:34 Board Certified Radiologist. This report was verified electronically.
[2017-09-08] MEDS: ACETAMINOPHEN 325 MG TAB PO PRN (21:40)
[2017-09-08] MEDS: SODIUM CHLOR 0.9% 1000 ML INJ 1,000 ML IV SCH (23:00)
[2017-09-09] VITALS (23 sets, daily range): BP systolic 85–121; BP diastolic 51–67; PULSE 51–118; RESP 16–22; TEMP 99.9–101.7; O2SAT 97–100
[2017-09-09] MEDS ORDERED: NOREPINEPHRINE-DEXTROSE DRIP 250 ML IV ONE (00:02)
[2017-09-09] MEDS ORDERED: ALBUMIN 25% INJ 100 ML IV ONE ×2 (00:02→00:30)
[2017-09-09] MEDS: SODIUM CHLOR 0.9% 1000 ML INJ 1,000 ML IV SCH ×3 (00:10→20:04)
[2017-09-09] MEDS ORDERED: ALBUMIN 5% INJ 500 ML IV ONE (00:15)
--- NOTE | 2017-09-09 00:41 | PD.PROCEDR ---
Procedure Note Procedure Centerline placement A time-out was completed verifying correct patient, procedure, site, positioning , and special equipment if applicable. The patient was placed in a dependent position appropriate for central line placement based on the vein to be cannulated. The patients right shoulder was prepped and draped in sterile fashion. 1% Lidocaine was used to anesthetize the surrounding skin area. A triple lumen 9-[place] catheter was introduced into the the right subclavian vein using the Seldinger technique. The catheter was threaded smoothly over the guide wire and appropriate blood return was obtained. Each lumen of the catheter was evacuated of air and flushed with sterile saline. The catheter was then sutured in place to the skin and a sterile dressing applied. Perfusion to the extremity distal to the point of catheter insertion was checked and found to be adequate. Estimated Blood Loss: 1ml The patient tolerated the procedure well and there were no complications. Keyon Sim MD Sep 09, 2017 12:41 am
[2017-09-09] MEDS: RESP: ALBUTEROL 2.5 MG/IPRATROPIUM 0.5 MG NEB (SCH) INH ×7 (00:46→23:50)
--- NOTE | 2017-09-09 01:39 | RADRPT ---
EXAM DATE/TIME: 09/09/2017 00:41 [place] COMPARISON: CHEST SINGLE AP, September 08, 2017, 13:24. INDICATIONS : Central line placement. MEDICAL HISTORY : SURGICAL HISTORY : None. ENCOUNTER: Subsequent ACUITY: 2 days PAIN SCORE: 0/10 LOCATION: Bilateral chest FINDINGS: Single AP portable erect view of the chest was obtained and demonstrates interval placement a right s ubclavian central venous line with the tip projected over the superior vena cava. There is no pneumot horax. Consolidative opacity remains in the left infrahilar region and left lung base. There are mult iple old healed left-sided rib fractures again noted. Endotracheal tube remains in place with the tip approximately 2-3 cm above the ailin. CONCLUSION: 1. Interval placement of right subclavian central venous line with no pneumothorax. 2. Consolidative opacity remains in the left infrahilar region. Damien García MD on September 09, 2017 at 1:37 Board Certified Radiologist. This report was verified electronically.
[2017-09-09] MEDS: ACETAMINOPHEN 325 MG TAB PO PRN ×4 (04:00→22:47)
[2017-09-09] MEDS: CHLORHEXIDINE GLUCONATE 2 % 1 PACK (2 CLOTHS) TOP SCH (04:00)
[2017-09-09] MEDS: PIPERACIL-TAZO 4.5 GM PREMIX 100 ML IV SCH ×4 (04:00→21:10)
[2017-09-09 04:48] LABS: HEMATOCRIT 29.5 % (39.0-51.0); MEAN CELL VOLUME 94.7 FL (80.0-100.0); MEAN CORPUSCULAR HEMOGLOBIN 31.2 PG (27.0-34.0); PLATELET COUNT 75 TH/MM3 (150-450); RED BLOOD COUNT 3.12 MIL/MM3 (4.50-5.90); RED CELL DISTRIBUTION WIDTH 15.3 % (11.6-17.2); WHITE BLOOD COUNT 6.2 TH/MM3 (4.0-11.0)
[2017-09-09 04:57] LABS: REVIEW FLAG AUTO DIFF
[2017-09-09] MEDS ORDERED: NOREPINEPHRINE 4 MG/D5W 250 ML IV PRN (05:00)
[2017-09-09 05:30] LABS: BICARBONATE 24.9 MEQ/L (21.0-32.0); POTASSIUM 3.7 MEQ/L (3.5-5.1)
[2017-09-09] MEDS: PHENYTOIN INJ 100 MG/2 ML VIAL IV PUSH SCH ×3 (06:02→21:11)
[2017-09-09] MEDS: CHLORHEXIDINE 0.12% (ORAL KIT) 15 ML CUP MT SCH ×3 (08:00→21:09)
[2017-09-09] MEDS: SODIUM CHLORIDE 0.9% FLUSH 10 ML FLUSH IV FLUSH SCH ×2 (09:00→21:10)
[2017-09-09] MEDS: DOCUSATE SODIUM 50 MG/SENNA 8.6 MG TAB PO SCH ×2 (09:00→21:10)
[2017-09-09] MEDS: BISACODYL 10 MG SUPP RECTAL SCH (09:00)
--- NOTE | 2017-09-09 09:01 | HHI.NSPN ---
(Bhaskar Bazan) History Chief Complaint: Intubated s/p right crani for SDH. (Bhaskar Bazan) Interval History 66-year-old gentleman who was admitted to the [facility] three days ago under the Blake Act. Prior to that, he was in [facility] facility recuperating after a traumatic brain injury with a left temporal lobe hemorrhage and small right parietal subdural hemorrhage. This was treated nonsurgically. He was discharged a couple of weeks ago to rehab. At the rehab place three days ago he was using a pair of scissors to cut electrical cords and also pull his teeth and was being very aggressive towards the staff. He has had some difficulty with his speech and confusion and short-term memory loss ever since his traumatic brain injury. According to his power of civil attorney, he has had multiple admissions recently over the past couple of months for traumatic brain injury and bleeds related to falls and alcohol abuse. Apparently at this afternoon the patient was found on the floor by the psychiatric nursing staff and was not responsive and was incontinent of his urine and it was felt like he may have had a seizure. He was taken to the CT scanner for the CT scan of the head and which shows a right frontoparietooccipital lobe acute on chronic subdural hemorrhage measuring about 17 mm in thickness with about 4 mm [id number] shift. This has progressed since his previous CT scan a couple weeks ago. He was transferred to the intensive care unit and I was contacted by the lockstitch cup setter. The patient is starting to respond more and is now awake, although is confused and moving all four extremities, although less spontaneous on the left side. He is starting to verbalize also whereas in the [facility] he was unresponsive with contractures and spasms. 09/01/17: Pt sedated on Diprivan. Not opening eyes. Pupils 3mm bilaterally reactive bilaterally. Withdraws all 4 extremities to pain. 09/02/17: Pt sedated on Diprivan. Not opening eyes. Withdraws all 4 extremities to pain left side more than right side. Pupils 3mm bilaterally reactive bilaterally. Intubated. 09/03/17: Pt sedated on Diprivan but on hold for 45min. Not opening eyes but moves head to voice. Not following commands. 09/04/17: Pts Diprivan being continuously held. Not opening eyes but moves head toward side of bed voice is coming from. Not following commands. Pt Continuously trying to cough ET Tube out. Only mild sputum on ET suctioning. 09/05/17: Patient opening eyes slightly to voice. Pupils 3 mm bilaterally. Not following commands. 09/08/17: Pt was reintubated this morning. Reportedly was very lethargic. Currently on Diprivan drip. Not following commands. 09/09/17: Pt intubated but off sedation since yesterday am. Opens eyes to pain. Not following commands. Withdraws Left side more than Right side. Pupils 2mm bilaterally reactive bilaterally. Pt getting platelet transfusion and is on pressor to keep Map greater than 65. (Bhaskar Bazan) System Review Comments Not able to obtain given clinical condition. (Bhaskar Bazan) Exam Results Vital Signs Date Time Temp Pulse Resp B/P (MAP) Pulse Ox O2 Delivery O2 Flow Rate FiO2 09/09/17 08:08 100.6 113 18 121/67 100 09/09/17 07:45 50 09/08/17 19:00 Mechanical Ventilator 09/08/17 07:00 10.00 Intake and Output 09/09/17 09/09/17 09/10/17 08:00 16:00 00:00 Intake Total 1007 ml 50 ml Output Total 1400 ml Balance -393 ml 50 ml (Bhaskar Bazan) Physical Examination General: Pt reintubated yesterday am. Pt off sedation with hypotension ( systolic in 90s) requiring pressor for MAP of 65. Eyes: Pupils 2mm bilaterally reactive bilaterally. Resp: Intubated. Pressure controlled. FiO2 50%. RR 12. Peep 7. CTA bilaterally. Heart: NSR no murmurs. Abd: Soft positive bs Skin: Incision clean and dry without any signs of infection. Muscle: Not following for muscle testing. Withdraws extremities left side more than right. Neuro: Pt off sedative drips since yesterday. Not following commands. Opening eyes to pain. Pupils 2mm bilaterally reactive bilaterally. Withdraws extremities to pain left side more than right which has been stable. (Bhaskar Bazan) Lab, Micro, Other Results Last Impressions Chest X-Ray 09/09/17 0000 Signed Impressions: Service Date/Time: Saturday, September 09, 2017 00:41 - CONCLUSION: 1. Interval placement of right subclavian central venous line with no pneumothorax. 2. Consolidative opacity remains in the left infrahilar region. Damien García MD Head CT 09/08/17 0000 Signed Impressions: Service Date/Time: Friday, September 08, 2017 14:42 - CONCLUSION: 1. The left temporal lobe blood products have decreased in size and density since the prior study. There is persistent residual surrounding edema. 2. The right-sided drain has been removed and there is persistent low density extra-axial collection in the right parietal region and high density likely within the right frontal region stable from the prior study. There is no midline shift. Rakesh Miramonets MD Laboratory Tests Test 09/08/17 11:02 09/09/17 04:10 Blood Gas Puncture Site LT RADIAL Blood Gas Patient Temperature 98.6 Blood Gas HCO3 29 mmol/L Blood Gas Base Excess 4.8 mmol/L Blood Gas Oxygen Saturation 91 % Arterial Blood pH 7.41 Arterial Blood Partial Pressure CO2 48 mmHg Arterial Blood Partial Pressure O2 68 mmHg Arterial Blood Oxygen Content 17.4 Vol % Arterial Blood Carboxyhemoglobin 1.7 % Arterial Blood Methemoglobin 0.6 % Blood Gas Hemoglobin 13.5 G/DL Oxygen Delivery Device VENTILATOR Blood Gas Ventilator Setting 16/600/PEEP7 Blood Gas Inspired Oxygen 100 % White Blood Count 6.2 TH/MM3 Red Blood Count 3.12 MIL/MM3 Hemoglobin 9.7 GM/DL Hematocrit 29.5 % Mean Corpuscular Volume 94.7 FL Mean Corpuscular Hemoglobin 31.2 PG Mean Corpuscular Hemoglobin Concent 33.0 % Red Cell Distribution Width 15.3 % Platelet Count 75 TH/MM3 Mean Platelet Volume 7.5 FL Blood Urea Nitrogen 48 MG/DL Creatinine 1.30 MG/DL Random Glucose 254 MG/DL Calcium Level 8.3 MG/DL Sodium Level 146 MEQ/L Potassium Level 3.7 MEQ/L Chloride Level 113 MEQ/L Carbon Dioxide Level 24.9 MEQ/L Anion Gap 8 MEQ/L Estimat Glomerular Filtration Rate 55 ML/MIN 09/09/17 09/09/17 09/10/17 15:00 23:00 07:00 Intake Total 50 ml Balance 50 ml Blood Product IV Normal Saline Flush 50 ml (Bhaskar Bazan) Medical Decision Making Impression and Plan A: 66 y/o M s/p right 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 There is also resolving left temporal lobe hemorrhage and encephalomalacia from his previous injury. 2. Seizure likely related to the traumatic brain injury versus alcohol withdrawal. 3. Heavy alcohol abuse with associated cirrhosis. 4. Thrombocytopenia likely related to alcohol abuse. 5. COPD on continuous home oxygen. PLAN: Continue with close neuro checks Continue to monitor labs especially his thrombocytopenia. Pt receiving another platelet transfusion this am. Plts were 75. Continue with critical care. Meeting reportedly scheduled with pts girlfriend this afternoon with Palliative care. (Bhaskar Bazan) Attending Statement The exam, history, and the medical decision-making described in the above note were completed with the assistance of the mid-level provider. I reviewed and agree with the findings presented. I attest that I had a [id number] encounter with the patient on the same day, and personally performed and documented my assessment and findings in the medical record. (Leighton Gonzalez MD) Bhaskar Bazan Sep 09, 2017 09:01 Leighton Gonzalez MD Sep 09, 2017 15:53
[2017-09-09] MEDS: MODAFINIL 200 MG TAB PO SCH (09:09)
[2017-09-09] MEDS: FAMOTIDINE 20 MG TAB NG SCH ×2 (09:09→21:12)
[2017-09-09] MEDS: THIAMINE INJ 100 MG in SODIUM CHLORIDE 0.9% INJ 100 ML IV SCH (09:09)
[2017-09-09] MEDS: SODIUM CHLORIDE 1 GRAM TAB PO SCH ×3 (09:09→18:45)
[2017-09-09] MEDS ORDERED: Vancomycin Consult Pharmacy 1 EA OTHER SCH (11:30)
--- NOTE | 2017-09-09 11:40 | HHI.CCPN ---
Subjective Remarks/Hospital Course Patient is a 66-year-old white male who was admitted to the psychiatric service under Blake act on 08/27/17. He has history of Wernicke-Korsakoff syndrome, TBI with subdural hematoma, previous TBI with subarachnoid hemorrhage, suicidal ideation, alcohol abuse, COPD and alcohol-induced cirrhosis. Patient was hospitalized here 08/07/17 through 08/23/17 after passing out at a bar and sustaining a traumatic brain injury. At that time he did have bilateral subdural hemorrhages and small bitemporal hemorrhages. Patient was managed conservatively (N/S Dr. Duque) and eventually was discharged to [facility]. Prior to this he was admitted in March 2017 for TBI and subarachnoid hemorrhage. Psych admitting diagnosis was dementia with behavioral disturbances and aggressive behavior towards staff at halfway. Today 08/30/17 a Halicat was called after patient was found on the floor. Apparently patient was in his normal state today a.m.. Nursing staff responded to hearing a thud in his room, patient was found to be lying on the floor with foaming him from his mouth and incontinence to urine. Apparently nursing staff also noted some seizure-like activity. Patient was unresponsive and nonverbal, but eyes open. A stat CT of the head was done which showed increase in size of the acute on chronic subdural hemorrhage now 1.7 cm with mild midline shift. Patient was emergently transferred to the ICU and critical care medicine was consulted. I immediately evaluated the patient. His level of consciousness is improving but he is very agitated. I discussed with Dr. Gonzalez who also evaluated the patient. Because of increase in size of the bleed patient will need evacuation of the subdural hemorrhage. Transfuse 1 unit platelets to correct thrombocytopenia. Due to severe agitation and new increase in bleed patient will be intubated and placed on mechanical ventilation. Dr. Gonzalez has updated the power of personal injury attorney was agreeable to intubation and surgical evacuation of the subdural hemorrhage 08/31/17: Remains intubated sedated critically ill. Withdraws 4 extremities. Platelet count above 84 received transfusion today one pack units of platelets in anticipation of or. Dr. Gonzalez planning on evacuation of subdural hemorrhage 09/01/17: s/p Right craniotomy for subdural hemorrhage evacuation. CT of the head shows right subdural drain with improvement in the right subdural hemorrhage, small amount of residual hemorrhage and pneumocephalus. There is also enlargement of left temporal hematoma now measuring up to 6 cm, 3 mm of left-to- right midline shift. New 1.4 cm area of focal hemorrhage in the anterior inferior right temporal lobe. 09/02/17: No acute events overnight. On sedation hold opens eyes to painful stimuli withdraws all 4 extremities, localizes do not follow commands. Coags normal platelet count 95. 09/03: Unable to wean from ventilator. 09/04: Too tachypneic on CPAP trials. Unable to arouse. Probably will require trach. 09/05: Tolerating SBTs, will try to extubate but anticipate airway control problems. 09/06: passed SBT. still intermittently encephalopathic, but at times more awake. did not extubate yesterday due to cuff leak concerns. will attempt today. certainly high risk for re-intubation given persistently poor mental status. 09/07: extubated yesterday. mental status still poor, although protects airway. needs aggressive PT and pulmonary toilet. 09/08: Patient is up in a stretcher chair but unresponsive desaturating, Oxygen saturation is 87% on 10 L simple mask. Patient is unable to open eyes localizes to pain with left upper extremity with no eye-opening. He is not protecting airway, he is tachycardic in 120s. We'll place back on the bed and proceed with re intubation, and possible trach in the afternoon. I briefly spoke to the DANK Dumas, who requested reintubation. We'll consult palliative care to address goals of care 09/09: Remains encephalopathy off all sedation. Opens eyes to painful stimuli withdraws to pain left more than right localizes with left upper extremity. Dr. Serrano met with DANK, she wants to continue with aggressive care and proceed with tracheostomy. Will schedule for tracheotomy today, consult GI for PEG placement Objective Vital Signs Date Time Temp Pulse Resp B/P (MAP) Pulse Ox O2 Delivery O2 Flow Rate FiO2 09/09/17 08:57 100.8 114 18 105/58 100 09/09/17 07:45 50 09/09/17 07:00 Mechanical Ventilator 09/08/17 07:00 10.00 Intake and Output 09/09/17 09/09/17 09/10/17 08:00 16:00 00:00 Intake Total 1007 ml 725 ml Output Total 1400 ml Balance -393 ml 725 ml Result Diagram: 09/09/1740909/09/[address] scan shows 1.7 cm right acute on chronic subdural hemorrhage with mild midline shift and pressure effect on right lateral ventricle Objective Remarks GENERAL: 66-year-old male lying in bed unresponsive. SKIN: warm/dry. HEAD: Normocephalic. EYES: Pupils equal and round. No scleral icterus. No injection or drainage. ENT: No nasal bleeding or discharge. Orotracheally intubated NECK: Trachea midline. CARDIOVASCULAR: Regular rate and rhythm. RESPIRATORY: Patient is intubated and entry is equal bilaterally. Bibasilar crackles GASTROINTESTINAL: Abdomen soft. Nontender. Nondistended. MUSCULOSKELETAL: No obvious deformities. NEUROLOGICAL: Patient opens eyes to painful stimuli. Localizes with left upper extremity. Withdraws to pain on all other extremities A/P Assessment and Plan ASSESSMENT/PLAN : 66yM s/p acute on chronic SDH with persistent encephalopathy and respiratory failure. protecting airway and extubated. however, given poor mental status, high risk for re-intubation and tracheostomy. will work with aggressive pulmonary toilet and PT. Neuro: Acute on chronic right subdural hemorrhage 1.7 cm with 4 mm midline shift Stable, evolving left intraparenchymal hemorrhage Acute encephalopathy Alcohol dependence Dementia with behavioral disturbances - Worsening neuro status. CT of the head stat after intubation 09/08 shows improving left temporal intraparenchymal hemorrhage, and improved subdural hemorrhage - s/p Evacuation of subdural hemorrhage 08/31. Neurosurgery Dr. Gonzalez - F/U CT head 09/01 shows expansion L parenchymal hemorrhage, but good evacuation R SDH - IV Thiamine. Ativan for seizures. EEG shows encephalopathy and no seizure - Loaded with Cerebyx 1 g and continue 100 mg every 8 hours. - Psych reconsult when mental status improves. currently could not participate in psych eval. - Phenytoin level subtherapeutic. no evidence of active seizures. - Provigil for wakefulness Cardiovascular: Hypertension- controlled. - Labetalol when necessary to keep SBP less than 150 mmHg, currently well controlled Pulmonary: Acute hypoxic and hypercarbic respiratory failure COPD without exacerbation LLL collapse from mucous plugging - Intubated 08/30 due to severe agitation and for airway protection. extubated 09/06. - Reintubated for acute hypoxemia and airway protection on 09/08/17 - Patient is unable to protect airway proceed with tracheostomy today - vent bundle, hob at 30 degrees - DuoNeb every 6 hours when necessary - Zosyn to cover for aspiration - Status post bronchoscopy 09/08/17 GI/liver: History of hepatitis C and liver cirrhosis - Tube feeds with Jevity, PO famotidine. - Bowel regimen - GI consulted for PEG tube placement ID: Probable aspiration - Zosyn for possible aspiration - f/u blood urine and sputum culture Endocrine: - Sliding scale insulin for glycemic control if needed Heme: Thrombocytopenia - Follow CBC and coags. Transfuse blood products and vitamin K as needed - Transfuse 2 U platelets and 1U FFP in anticipation of tracheostomy Prophylaxis: - Pepcid/SCDs. No subcutaneous heparin due to subdural hemorrhage, thrombocytopenia and anticipated procedures Discussed with Dr. Gonzalez. Also discussed with DANK Zamora and Dr. Serrano Patient is critically ill with acute hypoxemic respiratory failure worsening encephalopathy and sepsis from pneumonia. Proceed with trach as he is unable to protect airway. Patient was intubated and placed on mechanical ventilation. Palliative care consult to address goals of care CCT 32 MIN excluding procedures Daria Cameron MD Sep 09, 2017 11:40
[2017-09-09] MEDS ORDERED: VANCOMYCIN INJ 1,000 MG in SODIUM CHLOR 0.9% 250 ML INJ 250 ML IV ONE (12:00)
[2017-09-09] MEDS ORDERED: fentaNYL CITRATE 250 MCG/5 ML AMP IV PUSH ONE (12:00)
[2017-09-09] MEDS ORDERED: MIDAZOLAM HCL 5 MG/5 ML VIAL IV PUSH ONE (12:00)
[2017-09-09] MEDS ORDERED: ROCURONIUM INJ 50 MG/5 ML VIAL IV ONE (12:00)
--- NOTE | 2017-09-09 13:17 | PD.CONS ---
HPI History of Present Illness This is a 66 year old male patient who is currently admitted to the intensive care unit s/p right craniotomy for subdural hemorrhage evacuation s/p acute on chronic subdural hemorrhage s/p unwitnessed fall. Pt was transferred from the [facility] where he was under a Blake Act. Prior to the Blake Act pt was at [facility] where he was rehabbing from a TBI with left temporal lobe hemorrhage and small right parietal subdural hemorrhage which was treated nonsurgically. Pt was extubated September 06, however was reintubated on September 08 after desaturating on 10L simple mask. Current neurologic status, off sedation, does not follow commands, does open eyes to pain. Pts POA at bedside at time of my exam, she wants to proceed with aggressive care including PEG tube. Currently receiving nutrition through NG tube, turned off approximately two hours ago for tracheostomy to be done this afternoon. (Candice Padilla) PFSH Past Medical History Alcohol dependence Liver cirrhosis Hepatitis C Dementia with behavioral disturbances Wernicke-Korsakoff`s Syndrome Traumatic brain injury, left temporal hemorrhage and right parietal subdural hemorrhage COPD on O2 L NC continuous Diabetes mellitus. . (Candice Padilla) Coded Allergies: Sulfa (Sulfonamide Antibiotics) (Unverified Allergy, Severe, UNKNOWN - CHILD, 08/07/17) Review of Systems ROS pt intubated, unable to obtain (Candice Padilla) GI Exam Vitals I&O Vital Signs Date Time Temp Pulse Resp B/P (MAP) Pulse Ox O2 Delivery O2 Flow Rate FiO2 09/09/17 12:53 100.0 98 16 106/57 100 09/09/17 11:41 100 50 09/09/17 08:57 100.8 114 18 105/58 100 09/09/17 08:08 100.6 113 18 121/67 100 09/09/17 07:45 100 50 09/09/17 07:00 100 Mechanical Ventilator 50 09/09/17 06:00 106 09/09/17 04:22 104 85/52 09/09/17 04:10 99 50 09/09/17 04:00 100.6 106 16 85/52 (63) 99 09/09/17 04:00 107 09/09/17 03:00 101.5 114 22 86/53 (64) 98 09/09/17 02:00 114 09/09/17 00:42 100 50 09/09/17 00:10 129 84/50 09/09/17 00:10 126 81/49 09/09/17 00:00 118 09/08/17 22:00 136 09/08/17 21:57 93 50 09/08/17 20:00 122 09/08/17 19:00 99 Mechanical Ventilator 50 09/08/17 18:00 129 09/08/17 16:31 95 50 09/08/17 16:00 123 09/08/17 16:00 98.8 124 19 78/50 (59) 95 09/08/17 14:30 95 100 09/08/17 14:00 114 I/O 09/08/17 09/08/17 09/08/17 09/09/17 09/09/17 09/09/17 07:00 15:00 23:00 07:00 15:00 23:00 Intake Total 662 ml 201 ml 809 ml 2007 ml 725 ml Output Total 1000 ml 400 ml 1400 ml Balance -338 ml 201 ml 409 ml 607 ml 725 ml Intake Oral 0 ml IV Total 201 ml 333 ml 1100 ml Tube Feeding 542 ml 476 ml 507 ml Platelets 525 ml Blood Product IV Normal Saline Flush 200 ml Other 120 ml 400 ml Output Urine Total 1000 ml 400 ml 1400 ml # Bowel Movements 0 1 1 Imaging Last Impressions Chest X-Ray 09/09/17 0000 Signed Impressions: Service Date/Time: Saturday, September 09, 2017 00:41 - CONCLUSION: 1. Interval placement of right subclavian central venous line with no pneumothorax. 2. Consolidative opacity remains in the left infrahilar region. Damien Gracía MD Head CT 09/08/17 0000 Signed Impressions: Service Date/Time: Friday, September 08, 2017 14:42 - CONCLUSION: 1. The left temporal lobe blood products have decreased in size and density since the prior study. There is persistent residual surrounding edema. 2. The right-sided drain has been removed and there is persistent low density extra-axial collection in the right parietal region and high density likely within the right frontal region stable from the prior study. There is no midline shift. Rakesh Miramontes MD Laboratory Test 09/09/17 04:10 White Blood Count 6.2 TH/MM3 Red Blood Count 3.12 MIL/MM3 Hemoglobin 9.7 GM/DL Hematocrit 29.5 % Mean Corpuscular Volume 94.7 FL Mean Corpuscular Hemoglobin 31.2 PG Mean Corpuscular Hemoglobin Concent 33.0 % Red Cell Distribution Width 15.3 % Platelet Count 75 TH/MM3 Mean Platelet Volume 7.5 FL Blood Urea Nitrogen 48 MG/DL Creatinine 1.30 MG/DL Random Glucose 254 MG/DL Calcium Level 8.3 MG/DL Sodium Level 146 MEQ/L Potassium Level 3.7 MEQ/L Chloride Level 113 MEQ/L Carbon Dioxide Level 24.9 MEQ/L Anion Gap 8 MEQ/L Estimat Glomerular Filtration Rate 55 ML/MIN Date/Time Source Procedure Growth Status 09/08/17 12:25 Bronchial Washings Left Lower Lobe Fungal Smear - Final NO FUNGAL ELEMENTS SEEN. Resulted 09/08/17 12:25 Bronchial Washings Left Lower Lobe Fungal Culture Pending Resulted Physical Examination CHEST: Diminished, even/unlabored- ET intubation CARDIAC: RRR ABDOMEN: Soft, mildly distended, bowel sounds active x 4. EXTREMITIES: BLE edema SKIN: Normal; no rash; no jaundice. DAIRY INSPECTOR: Intubated. . (Candice Padilla) Assessment and Plan Plan Assessment - Acute on chronic right subdural hemorrhage Current neuro status- opens eyes to pain, does not follow commands Plan to place tracheostomy today We will plan for EGD with PEG tube placement tomorrow Nutrition assessment recommends Glucerna 1.5 at 60mls/hr Current labs H/H 9.7/29.5 and platelets 75. 1 U of Plts transfused today. Plan - Hold feeding after MN - Obtain consents - EGD with PEG tube placed tomorrow - Glucerna 1.5 at 60mLs/hr - Monitor labs - Supportive care Pt seen and examined by myself and Dr. Vargas and this note is written on his behalf (Candice Padilla) Physician Comments Seen and examined with ELASTIC CUTTER, EGD/Peg planned for tomorrow. Preprocedure antibiotics. (Popeye Vargas MD) Candice Padilla Sep 09, 2017 13:17 Popeye Vargas MD Sep 09, 2017 14:49
[2017-09-09] MEDS ORDERED: VANCOMYCIN INJ 1,250 MG in SODIUM CHLOR 0.9% 250 ML INJ 250 ML IV SCH (15:00)
--- NOTE | 2017-09-09 15:04 | PD.PROCEDR ---
Procedure Note Procedure Procedure DATE: 09/09/17 Preoperative diagnosis: Respiratory failure, failure to protect airway Postoperative diagnosis: Respiratory failure, failure to protect airway Procedure performed : Percutaneous tracheostomy INDICATION: Respiratory failure ANESTHESIA: Patient was sedated on propofol drip and received 5 mg midazolam, 150 g of fentanyl and 50 mg rocuronium CONSENT Informed consent for procedure was obtained DESCRIPTION OF THE PROCEDURE The patient was placed in supine position. Patient was on 100% FiO2. A timeout was performed. The procedure was initiated at bedside. The skin of anterior lower neck was cleansed with Chloraprep. Additional barrier precautions included large sterile drape, sterile gloves, sterile gown, face mask, and hat. His neck was appropriately extended with a towel roll behind his shoulder blades. Attention was directed at the midline trachea with the cricothyroid membrane was palpated. The patient was adequately sedated and paralyzed with fentanyl, propofol, midazolam and rocuronium. Two fingerbreadths above the sternal notch, a midline vertical incision was created with a scalpel after local filtration with 0.5% lidocaine with epinephrine. The trachea was entered with angiocath, and needle was removed. This was completed under direct visualization of fiberoptic flexible bronchoscope by Dr. Johnson. Following this, a guidewire was inserted through the catheter. The needle was removed leaving the guidewire intact. Site was dilated with a small dilator. The tracheal rings were then serially dilated and a sheath was left intact over guidewire. A #8 Shiley, which previously had been checked for inflation was advanced over the guidewire and sheath through the previously dilated tract. Shiley tracheostomy tube was noted to pass in the trachea with low resistance. The guidewire and sheath removed from the trachea. Under direct bronchoscope visualization noted this was in the trachea. An inner cannula was placed through the tracheostomy tube. The ventilator was then attached with adequate tidal volumes. No evidence of air leak. The tracheostomy was then secured at the anterior neck with 2. 0 silk 4. ESTIMATED BLOOD LOSS: Minimal COMPLICATIONS: No apparent complications. Chest x-ray pending at time of dictation Assisted by Daria Hernandez MD Sep 09, 2017 15:04
--- NOTE | 2017-09-09 15:06 | PD.PROCEDR ---
Procedure Note Procedure DX: Respiratory Failure (J96.00) OP: Therapeutic Bronchoscopy (14742) Procedure: Patient on mechanical ventilation with usual ICU monitoring in place. Through the side port elbow in the ventilation circuit the bronchoscope was passed into the airway. Large amounts of purulent secretions were suction from the basilar bronchial segments. No endobronchial lesions and normal anatomy. The orotracheal tube and bronchoscope were then withdrawn together to the level of the cricoid. Visualization was used for a percutaneous tracheostomy dictated separately. Following trach insertion the scope was the used to confirm mid-trachea positioning of the new tracheostomy tube. Ventilation was switched rapidly to the new tracheal airway with full return of tidal volumes. Sats were maintained > 95% throughout the procedure. Deep Johnson MD Sep 09, 2017 15:06
--- NOTE | 2017-09-09 16:03 | RADRPT ---
EXAM DATE/TIME: 09/09/2017 15:08 [facility] COMPARISON: CHEST SINGLE AP, September 09, 2017, 0:41. INDICATIONS : Post trach. MEDICAL HISTORY : Cardiovascular disease. Seizures. Chronic obstructive pulmonary disease. SURGICAL HISTORY : None. ENCOUNTER: Subsequent ACUITY: 2 days PAIN SCORE: Non-responsive. LOCATION: Bilateral chest FINDINGS: The cardiac silhouette is enlarged in transverse diameter. There is patchy alveolar disease bilateral ly compatible with edema or pneumonia. A tracheostomy tube is in place in the midline. A right sided subclavian right vein catheter is in place without pneumothorax with its tip in the superior vena cav a. CONCLUSION: Satisfactory position of tracheostomy tube without evidence of pneumothorax. Worsening pulmonary edema Nhan Douglas MD on September 09, 2017 at 16:00 Board Certified Radiologist. This report was verified electronically.
--- NOTE | 2017-09-09 18:48 | HHI.HCPN ---
Reason for visit a. To assist with evaluation and management of symptoms including: dyspnea, encephalopathy, back pain, and debility. b. To assist medical decision maker(s) with: better understanding of current medical conditions; weighing benefits/burdens of medical treatment options; making medical treatment decisions. . Subjective/Interval History No significant improvement overnight. Patient remains encephalopathic and minimally responsive. Now febrile -- Tmax 101.5. Tachycardic and hypotensive requiring pressor support today. Hg fell from 12.4 to 9.7. Renal function is declingin with GFR falling from 137 to 55 overnight. Bronchial washings from 09/08 growing Staph Aureus and Beta strep not group A. CXR showing worsening pulmonary edema. . Family/friend interactions Met with patient's health care surrogate -- Yesi Alonso -- for approximately 50 minutes. Geographic Information System Surveyor Tim was present per Ms. Alonso's request. == Some additional history * Ms. Alonso has known the patient for 8 years and they have been roommates for over 5 years. * Ms. Alonso remains in communication with the patient's biological daughter who she reports is incarcerated. * There is a stepdaughter who lives in the [facility] that the patient has specifically requested in his advance directives NOT to be involved in his care. * Patient had a traumatic injury in childhood that impacted learning. He has never learned to read or write. 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 No experience. * Jainism/spirituality have not been an important part of his life. * Patient lives on disability income. * Ms Alonso has been able to limit his alcohol consumption but he is able to walk and get some when she is not available to supervise. this happened when she developed pneumonia. * After his last hospitalization , the patient did well in rehab until he took scissors from a nurse and needed to be Blake Acted. He was walking in the hallways without assistive device. Ms. Alonso showed me photographs of this. * Normally, at home, he is watching TV most of the night and sleeps a lot during the day. Ms. Alonso will take him out periodically for a slow walk. Until the recent hospitalizations, he could walk from his home to the nearby [address]. He has very poor memory and difficulty learning new things. * Patient has chronic back pain and would normally use Lortab 10 QID on a regular basis. No other known pain syndromes. * Surrogate also reports he has been diagnosed with hepatic cirrhosis and diabetes mellitus. == Discussion regarding goals of medical treatment,. Ms. Alonso feels she knows Mr. Valentine very well. He decided to complete advance directives on his own when he was diagnosed with cirrhosis. She feels he is a fighter and has overcome multiple obstacles in the past and would continue to fight to try and get back to his prior functional status. On the other hand, he would not want to be maintained indefinitely on life support . She feels strongly at this time, that he would want aggressive care including tracheostomy. If he continues to fail in spite of these efforts or it become clear that he can't recover to a level of functioning that would give him meaning and purpose, then she would agree to transition to "comfort measures only," and put him "in God's hands." Advance Directives Living Will: Copy in medical record Health Care Surrogate: Copy in medical record Advance Directive Specifics Date completed: April 30, 2016 . Health Care Surrogate(s): Cassandra Jefferson- [phone] . Documented care wishes: Standard verbiage . Objective Vital Signs Date Time Temp Pulse Resp B/P (MAP) Pulse Ox O2 Delivery O2 Flow Rate FiO2 09/09/17 17:11 40 09/09/17 17:10 97 40 09/09/17 16:50 98 T-piece 40 09/09/17 16:00 101.5 110 16 110/59 (76) 98 09/09/17 16:00 110 09/09/17 16:00 40 09/09/17 14:30 50 09/09/17 14:00 106 09/09/17 14:00 100 100 09/09/17 12:53 100.0 98 16 106/57 100 09/09/17 12:00 99.9 100 18 89/51 (64) 100 09/09/17 12:00 100 09/09/17 11:41 100 50 09/09/17 10:00 109 09/09/17 08:57 100.8 114 18 105/58 100 09/09/17 08:08 100.6 113 18 121/67 100 09/09/17 08:00 100.1 116 20 121/67 (85) 100 12/5/17 08:00 116 09/09/17 07:45 100 50 09/09/17 07:00 100 Mechanical Ventilator 50 09/09/17 06:00 106 09/09/17 04:22 104 85/52 09/09/17 04:10 99 50 09/09/17 04:00 100.6 106 16 85/52 (63) 99 09/09/17 04:00 107 09/09/17 03:00 101.5 114 22 86/53 (64) 98 09/09/17 02:00 114 09/09/17 00:42 100 50 09/09/17 00:10 129 84/50 09/09/17 00:10 126 81/49 09/09/17 00:00 118 09/08/17 22:00 136 09/08/17 21:57 93 50 09/08/17 20:00 122 09/08/17 19:00 99 Mechanical Ventilator 50 Intake & Output 09/09/17 09/09/17 07:00 19:00 Intake Total 2007 ml 2503 ml Output Total 1400 ml Balance 607 ml 2503 ml IV Total 1100 ml 1451 ml Tube Feeding 507 ml FFP 227 ml Platelets 525 ml Blood Product IV Normal Saline Flush 300 ml Other 400 ml Output Urine Total 1400 ml # Bowel Movements 1 . Physical Exam CONSTITUTIONAL/GENERAL: This is an adequately nourished patient, intubated, sedated on mechanical ventilation. TUBES/LINES/DRAINS:Right nare NGT, ETT,FC, PIVs, BUE soft restraints, SCDs. SKIN: No rashes, or lesions. Ecchymoses on upper extremities. No wounds seen anteriorly. Skin temperature appropriate. Not diaphoretic. HEAD: Normocephalic. Horse shoe-shaped surgical incision to Right temporoparietal head EYES: Pupils equal and round and reactive. Extraocular motions intact. No scleral icterus. No injection or drainage. Fundi not examined. ENT: Hearing grossly normal. Nose without bleeding or purulent drainage. Throat without visible erythema, exudates, masses, or lesions. NECK: Trachea midline. Supple, nontender. No palpable thyroid enlargement or nodularity. CARDIOVASCULAR: Regular rate and rhythm without murmurs, gallops, or rubs. No JVD. Peripheral pulses symmetric. RESPIRATORY/CHEST: Symmetric, unlabored respirations. Clear to auscultation. No wheezes, rales, or rhonchi. GASTROINTESTINAL: Abdomen soft, non-tender, nondistended. No guarding. Bowel sounds present. R nare NGT GENITOURINARY: Without palpable bladder distension. Mendoza catheter in place. MUSCULOSKELETAL: Extremities without clubbing, cyanosis, or edema. No joint tenderness or effusion noted. No calf tenderness. No mottling or clubbing. NEUROLOGICAL: intubated, sedated on mechanical ventilation. Withdraws to noxious stimulation with all 4 extremities. PSYCHIATRIC: No obvious anxiety/depression. no apparent hallucinations or other psychotic thought process. . Diagnostic Tests Laboratory Laboratory Tests Test 09/07/17 05:54 09/08/17 04:20 09/08/17 11:02 09/09/17 04:10 White Blood Count 7.1 TH/MM3 (4.0-11.0) 8.2 TH/MM3 (4.0-11.0) 6.2 TH/MM3 (4.0-11.0) Red Blood Count 3.84 MIL/MM3 (4.50-5.90) 3.98 MIL/MM3 (4.50-5.90) 3.12 MIL/MM3 (4.50-5.90) Hemoglobin 12.0 GM/DL (13.0-17.0) 12.4 GM/DL (13.0-17.0) 9.7 GM/DL (13.0-17.0) Hematocrit 36.4 % (39.0-51.0) 37.6 % (39.0-51.0) 29.5 % (39.0-51.0) Mean Corpuscular Volume 94.8 FL (80.0-100.0) 94.3 FL (80.0-100.0) 94.7 FL (80.0-100.0) Mean Corpuscular Hemoglobin 31.4 PG (27.0-34.0) 31.2 PG (27.0-34.0) 31.2 PG (27.0-34.0) Mean Corpuscular Hemoglobin Concent 33.1 % (32.0-36.0) 33.1 % (32.0-36.0) 33.0 % (32.0-36.0) Red Cell Distribution Width 15.1 % (11.6-17.2) 15.5 % (11.6-17.2) 15.3 % (11.6-17.2) Platelet Count 144 TH/MM3 (150-450) 135 TH/MM3 (150-450) 75 TH/MM3 (150-450) Mean Platelet Volume 7.6 FL (7.0-11.0) 7.4 FL (7.0-11.0) 7.5 FL (7.0-11.0) Blood Urea Nitrogen 19 MG/DL (7-18) 26 MG/DL (7-18) 48 MG/DL (7-18) Creatinine 0.56 MG/DL (0.60-1.30) 0.59 MG/DL (0.60-1.30) 1.30 MG/DL (0.60-1.30) Random Glucose 177 MG/DL (74-106) 186 MG/DL (74-106) 254 MG/DL (74-106) Calcium Level 9.2 MG/DL (8.5-10.1) 9.8 MG/DL (8.5-10.1) 8.3 MG/DL (8.5-10.1) Sodium Level 137 MEQ/L (136-145) 143 MEQ/L (136-145) 146 MEQ/L (136-145) Potassium Level 4.1 MEQ/L (3.5-5.1) 4.0 MEQ/L (3.5-5.1) 3.7 MEQ/L (3.5-5.1) Chloride Level 107 MEQ/L (98-107) 105 MEQ/L (98-107) 113 MEQ/L (98-107) Carbon Dioxide Level 22.0 MEQ/L (21.0-32.0) 32.9 MEQ/L (21.0-32.0) 24.9 MEQ/L (21.0-32.0) Anion Gap 8 MEQ/L (5-15) 5 MEQ/L (5-15) 8 MEQ/L (5-15) Estimat Glomerular Filtration Rate 145 ML/MIN (>89) 137 ML/MIN (>89) 55 ML/MIN (>89) Blood Gas Puncture Site LT RADIAL Blood Gas Patient Temperature 98.6 Blood Gas HCO3 29 mmol/L (22-26) Blood Gas Base Excess 4.8 mmol/L (-2-2) Blood Gas Oxygen Saturation 91 % (90-100) Arterial Blood pH 7.41 (7.380-7.420) Arterial Blood Partial Pressure CO2 48 mmHg (38-42) Arterial Blood Partial Pressure O2 68 mmHg (61-120) Arterial Blood Oxygen Content 17.4 Vol % (12.0-20.0) Arterial Blood Carboxyhemoglobin 1.7 % (0-4) Arterial Blood Methemoglobin 0.6 % (0-2) Blood Gas Hemoglobin 13.5 G/DL (12.0-16.0) Oxygen Delivery Device VENTILATOR Blood Gas Ventilator Setting 16/600/PEEP7 Blood Gas Inspired Oxygen 100 % Result Diagram: 09/09/17 0410 09/09/17 0410 Microbiology Microbiology Date/Time Source Procedure Growth Status 09/08/17 12:25 Bronchial Washings Left Lower Lobe Fungal Smear - Final NO FUNGAL ELEMENTS SEEN. Resulted 09/08/17 12:25 Bronchial Washings Left Lower Lobe Fungal Culture Pending Resulted 09/09/17 13:00 Urine Catheterized Urine Urine Culture Pending Received . Imaging Last Impressions Chest X-Ray 09/09/17 0000 Signed Impressions: Service Date/Time: Saturday, September 09, 2017 15:08 - CONCLUSION: Satisfactory position of tracheostomy tube without evidence of pneumothorax. Worsening pulmonary edema Nhan Douglas MD Head CT 09/08/17 0000 Signed Impressions: Service Date/Time: Friday, September 08, 2017 14:42 - CONCLUSION: 1. The left temporal lobe blood products have decreased in size and density since the prior study. There is persistent residual surrounding edema. 2. The right-sided drain has been removed and there is persistent low density extra-axial collection in the right parietal region and high density likely within the right frontal region stable from the prior study. There is no midline shift. Rakesh Miramontes MD . Procedures 08/30/2017-intubated and placed on mechanical ventilation 09/06/2017-medical extubated 09/08/2017-Reintubated 09/08/2017-Bronchoscopy 09/09/17 - Tracheostomy . . 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 Now with pneumonia. Currently intubated s/p bronchoscopy 09/08/17. Tracheostomy 09/09/17 . (2) Pain 0-10 Scale: Unable to quantify Comment: Patient unable to locate, quantify, qualify pain. Had history of chronic back pain requiring Lortab 10 QID scheduled. Sources of pain currently might include head pain from recent subdural and surgery; prolonged bedbound status; orotracheal intubation; urinary catheter; venous access lines. Will need to watch carefully for non-verbal signs of pain. Currently, there are no opiate analgesic orders. (3) Confusion 0-10 Scale: Unable to quantify Comment: Encephalopathy: Multifactorial. Multiple TBIs with recent acute on chronic subdural requiring craniectomy on 08/31/17. Hx of Wernicke-Korsakoff syndrome with behavioral issues. 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 Unclear at this time to what extent he will recover neurologic function and cognitive abilities. . (4) Debility 0-10 Scale: Unable to quantify Comment: Progressive. Multiple hospital visits, x5 visits since April. Recent hospitalization for TBI and was discharged to a SNF. . Pertinent Non-Medical Issues Psychosocial: Spiritual: No cheondoism affiliation Legal: Patient has a [facility] and Living Will Ethical issues impacting care: None identified at this time. . Important Contacts Friend- [facility]- Yesi Alonso- [phone] Daughter- Alternate [facility]-Aneta Cox . Prognosis Patient is a 66 years old male with a past medical history of Wernicke- Korsakoff syndrome, COPD, TBI with subdural hematoma, previous tibia with subarachnoid hemorrhage, suicidal ideation, alcohol abuse, and alcohol cirrhosis. Recent hospitalization was 08/07/17 after patient passed out in a bar and sustained a traumatic brain injury with a left temporal lobe hemorrhage and small right parietal subdural hemorrhage that were conservatively managed. Patient was found on the floor, foaming in his mouth, incontinent of urine and seizure like activity in Psych. CT head revealed acute on chronic subdural hemorrhage now 1.7 cm with mild midline shift. Patient underwent right craniotomy for evacuation of subdural hemorrhage. Clinical course complicated with poor mental status and respiratory failure requiring reintubation and placement on mechanical ventilation. Given ongoing comorbidities, patient remains at high risk for complications, deterioration and decline. . Plan PLAN: Legal decision maker: Patient is currently intubated, sedated on mechanical ventilation and unable to make his own medical decisions. Patient designated Cassandra Alonso who is currently making medical decisions for the patient and his daughter Aneta Cox as alternate HCS. The daughter is currently incarcerated in [facility]. Goals of medical treatment: Ms. Alonso feels she knows the patient very well. He decided to complete advance directives on his own when he was diagnosed with cirrhosis. She feels he is a fighter and has overcome multiple obstacles in the past and would continue to fight to try and get back to his prior functional status. On the other hand, he would not want to be maintained indefinitely on life support . She feels strongly at this time, that he would want aggressive care including tracheostomy. If he continues to fail in spite of these efforts or it become clear that he can't recover to a level of functioning that would give him meaning and purpose, then she would agree to transition to "comfort measures only," and put him "in God's hands." CODE STATUS: Full Code- SYMPTOMS: * Shortness of breath: Hx of COPD. Pt was intubated on 08/30/17 and extubated . Patient desaturating and reintubated s/p bronchoscopy 09/08/17. Per sheet metal worker, he will require tracheostomy should the goals be aggressive. Patient is febrile and sputum is growing staph and strep. Dyspnea being addressed with antibiotic coverage and vent support. No further recommendations at this time. * Encephalopathy: Multifactorial. Multiple TBIs with recent acute on chronic subdural requiring craniectomy on 08/31/17. Hx of Wernicke-Korsakoff syndrome. 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 Unclear at this time to what extent he will recover neurologic function and cognitive abilities. * Pain: Patient unable to locate, quantify, qualify pain. Had history of chronic back pain requiring Lortab 10 QID scheduled. Sources of pain currently might include head pain from recent subdural and surgery; prolonged bedbound status; orotracheal intubation; urinary catheter; venous access lines. Will need to watch carefully for non-verbal signs of pain. Currently, there are no opiate analgesic orders. == Disposition: Should he survive the hospitalization, he will likely require long-term facility placement. == Palliative care will continue to follow to assist with symptom management and to further clarify goals of medical treatment as the clinical course evolves. . Time Spent Total Floor Time (mins): 70 (Total floor time included chart review, patient exam, discussion with Dr. Cameron (sheet metal worker), above referenced conference with surrogate, and documentation.) Face to Face Time (mins): 10 >50% Counseling/Coord of Care: Yes Attestation To help prompt me to consider important information that might be impacting today's encounter and assessment, information from prior notes written by myself or my colleagues may have been "brought forward" into today's note. My signature on this note, however, is an attestation that I personally performed the exam, history, and/or decision-making noted today, and, unless otherwise indicated, the interactions with patient, family, and staff as well as the review of records all occurred today. I also attest that the listed assessment and stated plan reflect my best clinical judgment today based on the combination of historical information, prior notes, and today's exam/ interactions. When time spent is documented, it refers only to time spent today by the signer, or if indicated, combined time spent today by collaborating physician/nurse practitioner. . Shemar Serrano MD Sep 09, 2017 18:48
[2017-09-10] VITALS (20 sets, daily range): BP systolic 99–118; BP diastolic 59–72; PULSE 96–125; RESP 16–36; TEMP 99.9–103.8; O2SAT 93–100
[2017-09-10] MEDS: PIPERACIL-TAZO 4.5 GM PREMIX 100 ML IV SCH ×4 (03:51→20:36)
[2017-09-10] MEDS: RESP: ALBUTEROL 2.5 MG/IPRATROPIUM 0.5 MG NEB (SCH) INH ×6 (03:58→23:38)
[2017-09-10] MEDS: SODIUM CHLOR 0.9% 1000 ML INJ 1,000 ML IV SCH (04:54)
[2017-09-10] MEDS: ACETAMINOPHEN 325 MG TAB PO PRN ×3 (04:54→20:36)
[2017-09-10] MEDS: PHENYTOIN INJ 100 MG/2 ML VIAL IV PUSH SCH (05:14)
[2017-09-10 05:26] LABS: AUTOMATED NEUTROPHIL # 7.1 TH/MM3 (1.8-7.7); BASOPHIL % 0.4 % (0.0-2.0); EOSINOPHIL # 0.2 TH/MM3 (0-0.4); EOSINOPHIL % 2.1 % (0.0-4.0); HEMATOCRIT 24.6 % (39.0-51.0); LYMPHOCYTE # 0.2 TH/MM3 (1.0-4.8); MEAN CELL VOLUME 95.7 FL (80.0-100.0); MEAN CORPUSCULAR HGB CONC 33.4 % (32.0-36.0); MONO % 0.8 % (0.0-8.0); NEUT % 94.7 % (16.0-70.0); PLATELET COUNT 98 TH/MM3 (150-450); RED BLOOD COUNT 2.57 MIL/MM3 (4.50-5.90); RED CELL DISTRIBUTION WIDTH 15.8 % (11.6-17.2); WHITE BLOOD COUNT 7.5 TH/MM3 (4.0-11.0)
[2017-09-10 05:35] LABS: HEMO FLAGS AUTO DIFF
[2017-09-10 05:57] LABS: ALT (GPT) 39 U/L (12-78); ANION GAP 6 MEQ/L (5-15); AST (GOT) 27 U/L (15-37); BICARBONATE 27.6 MEQ/L (21.0-32.0); BLOOD UREA NITROGEN 22 MG/DL (7-18); CHLORIDE 118 MEQ/L (98-107); GLOMERULAR FILTRATION RATE 99 ML/MIN (>89); POTASSIUM 3.3 MEQ/L (3.5-5.1); SODIUM (NA) 152 MEQ/L (136-145)
[2017-09-10 06:03] LABS: ALKALINE PHOSPHATASE 90 U/L (45-117); TOTAL BILIRUBIN ADULT 1.2 MG/DL (0.2-1.0)
[2017-09-10] MEDS: CHLORHEXIDINE 0.12% (ORAL KIT) 15 ML CUP MT SCH ×2 (08:00→20:35)
[2017-09-10] MEDS: THIAMINE INJ 100 MG in SODIUM CHLORIDE 0.9% INJ 100 ML IV SCH (08:53)
[2017-09-10] MEDS: MODAFINIL 200 MG TAB PO SCH (08:53)
[2017-09-10] MEDS: FAMOTIDINE 20 MG TAB NG SCH ×2 (08:53→20:35)
[2017-09-10] MEDS: SODIUM CHLORIDE 0.9% FLUSH 10 ML FLUSH IV FLUSH SCH ×2 (09:00→20:37)
[2017-09-10] MEDS: DOCUSATE SODIUM 50 MG/SENNA 8.6 MG TAB PO SCH ×2 (09:00→20:35)
[2017-09-10] MEDS: BISACODYL 10 MG SUPP RECTAL SCH (09:00)
[2017-09-10 09:16] LABS: BANDS 27 % (0-6); EOSINOPHILS 1 % (0-4); METAMYELOCYTES 31 % (0-1); NEUTROPHIL # MANUAL DIFF 7.3 TH/MM3 (1.8-7.7); POLYS (SEG NEUTROPHILS) 39 % (16-70); WBC DIFF SAMPLE 100
[2017-09-10 09:17] LABS: DOHLE BODIES PRESENT (NONE SEEN); PLATELET ESTIMATE SMEAR LOW (NORMAL); PLATELET MORPHOLOGY NORMAL (NORMAL); TOXIC VACUOLATION PRESENT (NONE SEEN)
[2017-09-10 09:18] LABS: SCAN/DIFF FINAL DIFF MANUAL
[2017-09-10] MEDS: SODIUM CHLORIDE 1 GRAM TAB PO SCH ×3 (09:30→17:46)
--- NOTE | 2017-09-10 09:45 | HHI.NSPN ---
(Bhaskar Bazan) History Chief Complaint: Intubated s/p right crani for SDH. (Bhaskar Bazan) Interval History 66-year-old gentleman who was admitted to the psychiatric [facility] three days ago under the Blake Act. 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 This was treated nonsurgically. He was discharged a couple of weeks ago to rehab. At the rehab place three days ago he was using a pair of scissors to cut electrical cords and also pull his teeth and was being very aggressive towards the staff. He has had some difficulty with his speech and confusion and short-term memory loss ever since his traumatic brain injury. According to his power of securities attorney, he has had multiple admissions recently over the past couple of months for traumatic brain injury and bleeds related to falls and alcohol abuse. Apparently at this afternoon the patient was found on the floor by the psychiatric nursing staff and was not responsive and was incontinent of his urine and it was felt like he may have had a seizure. 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 This has progressed since his previous CT scan a couple weeks ago. He was transferred to the intensive care unit and I was contacted by the occup therapist. The patient is starting to respond more and is now awake, although is confused and moving all four extremities, although less spontaneous on the left side. He is starting to verbalize also whereas in the psychiatric [facility] he was unresponsive with contractures and spasms. 09/01/17: Pt sedated on Diprivan. Not opening eyes. Pupils 3mm bilaterally reactive bilaterally. Withdraws all 4 extremities to pain. 09/02/17: Pt sedated on Diprivan. Not opening eyes. Withdraws all 4 extremities to pain left side more than right side. Pupils 3mm bilaterally reactive bilaterally. Intubated. 09/03/17: Pt sedated on Diprivan but on hold for 45min. Not opening eyes but moves head to voice. Not following commands. 09/04/17: Pts Diprivan being continuously held. Not opening eyes but moves head toward side of bed voice is coming from. Not following commands. Pt Continuously trying to cough ET Tube out. Only mild sputum on ET suctioning. 09/05/17: Patient opening eyes slightly to voice. Pupils 3 mm bilaterally. Not following commands. 09/08/17: Pt was reintubated this morning. Reportedly was very lethargic. Currently on Diprivan drip. Not following commands. 09/09/17: Pt intubated but off sedation since yesterday am. Opens eyes to pain. Not following commands. Withdraws Left side more than Right side. Pupils 2mm bilaterally reactive bilaterally. Pt getting platelet transfusion and is on pressor to keep Map greater than 65. 09/10/17: Pt with trach in place. Off sedative drips currently. Opens eyes slightly to pain. Not following commands. (Bhaskar Bazan) System Review Comments Not able to obtain given clinical condition. (Bhaskar Bazan) Exam Results Vital Signs Date Time Temp Pulse Resp B/P (MAP) Pulse Ox O2 Delivery O2 Flow Rate FiO2 09/10/17 09:05 97 40 09/10/17 08:00 101.8 125 36 105/72 (83) 09/09/17 16:50 T-piece 09/08/17 07:00 10.00 Intake and Output 09/10/17 09/10/17 09/11/17 08:00 16:00 00:00 Intake Total 2847 ml Output Total 1600 ml Balance 1247 ml (Bhaskar Bazan) Physical Examination General: Pt off sedation, resting in NAD. Eyes: Pupils 2mm bilaterally reactive bilaterally. Resp: Trach in place. Volume controll. FiO2 40%. RR 12. CTA bilaterally. Heart: NSR no murmurs. Abd: Soft positive bs Skin: Incision clean and dry without any signs of infection. Muscle: Not following for muscle testing. Withdraws extremities left side more than right. Neuro: Pt off sedative drips. Not following commands. Opening eyes slightly to pain. Pupils 3mm bilaterally reactive bilaterally. Withdraws extremities to pain left side more than right which has been stable. (Bhaskar Bazan) Lab, Micro, Other Results Last Impressions Chest X-Ray 09/09/17 0000 Signed Impressions: Service Date/Time: Saturday, September 09, 2017 15:08 - CONCLUSION: Satisfactory position of tracheostomy tube without evidence of pneumothorax. Worsening pulmonary edema Nhan Douglas MD Head CT 09/08/17 0000 Signed Impressions: Service Date/Time: Friday, September 08, 2017 14:42 - CONCLUSION: 1. The left temporal lobe blood products have decreased in size and density since the prior study. There is persistent residual surrounding edema. 2. The right-sided drain has been removed and there is persistent low density extra-axial collection in the right parietal region and high density likely within the right frontal region stable from the prior study. There is no midline shift. Rakesh Miramontes MD Laboratory Tests Test 09/10/17 05:05 White Blood Count 7.5 TH/MM3 Red Blood Count 2.57 MIL/MM3 Hemoglobin 8.2 GM/DL Hematocrit 24.6 % Mean Corpuscular Volume 95.7 FL Mean Corpuscular Hemoglobin 32.0 PG Mean Corpuscular Hemoglobin Concent 33.4 % Red Cell Distribution Width 15.8 % Platelet Count 98 TH/MM3 Mean Platelet Volume 7.9 FL Neutrophils (%) (Auto) 94.7 % Lymphocytes (%) (Auto) 2.0 % Monocytes (%) (Auto) 0.8 % Eosinophils (%) (Auto) 2.1 % Basophils (%) (Auto) 0.4 % Neutrophils # (Auto) 7.1 TH/MM3 Lymphocytes # (Auto) 0.2 TH/MM3 Monocytes # (Auto) 0.1 TH/MM3 Eosinophils # (Auto) 0.2 TH/MM3 Basophils # (Auto) 0.0 TH/MM3 CBC Comment AUTO DIFF Differential Total Cells Counted 100 Neutrophils % (Manual) 39 % Band Neutrophils % 27 % Lymphocytes % 1 % Monocytes % 1 % Eosinophils % 1 % Neutrophils # (Manual) 7.3 TH/MM3 Metamyelocytes 31 % Differential Comment FINAL DIFF MANUAL Toxic Vacuolation PRESENT Dohle Bodies PRESENT Platelet Estimate LOW Platelet Morphology Comment NORMAL Blood Urea Nitrogen 22 MG/DL Creatinine 0.78 MG/DL Random Glucose 158 MG/DL Total Protein 6.8 GM/DL Albumin 2.3 GM/DL Calcium Level 8.5 MG/DL Alkaline Phosphatase 90 U/L Aspartate Amino Transf (AST/SGOT) 27 U/L Alanine Aminotransferase (ALT/SGPT) 39 U/L Total Bilirubin 1.2 MG/DL Sodium Level 152 MEQ/L Potassium Level 3.3 MEQ/L Chloride Level 118 MEQ/L Carbon Dioxide Level 27.6 MEQ/L Anion Gap 6 MEQ/L Estimat Glomerular Filtration Rate 99 ML/MIN (Bhaskar Bazan) Medical Decision Making Impression and Plan A: 66 y/o M s/p right 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 There is also resolving left temporal lobe hemorrhage and encephalomalacia from his previous injury. 2. Seizure likely related to the traumatic brain injury versus alcohol withdrawal. 3. Heavy alcohol abuse with associated cirrhosis. 4. Thrombocytopenia likely related to alcohol abuse. 5. COPD on continuous home oxygen. PLAN: Continue with close neuro checks Continue to monitor labs especially his thrombocytopenia. Continue with critical care. Rehab efforts (Bhaskar Bazan) Attending Statement The exam, history, and the medical decision-making described in the above note were completed with the assistance of the mid-level provider. I reviewed and agree with the findings presented. I attest that I had a [id number] encounter with the patient on the same day, and personally performed and documented my assessment and findings in the medical record. Trach in place with no change in exam. Arrangements being made for long-term facility placement. (Leighton Gonzalez MD) Bhaskar Bazan Sep 10, 2017 09:45 Leighton Gonzalez MD Sep 10, 2017 15:56
[2017-09-10] MEDS ORDERED: ACETAMINOPHEN 1000 MG/100 ML 100 ML IV ONE (10:00)
[2017-09-10] MEDS: 1/2 NS + KCL 20 MEQ INJ 1,000 ML IV SCH ×2 (10:07→20:35)
--- NOTE | 2017-09-10 10:09 | HHI.CCPN ---
Subjective Remarks/Hospital Course Patient is a 66-year-old white male who was admitted to the psychiatric service under Blake act on 08/27/17. He has history of Wernicke-Korsakoff syndrome, TBI with subdural hematoma, previous TBI with subarachnoid hemorrhage, suicidal ideation, alcohol abuse, COPD and alcohol-induced cirrhosis. Patient was hospitalized here 08/07/17 through 08/23/17 after passing out at a bar and sustaining a traumatic brain injury. At that time he did have bilateral subdural hemorrhages and small bitemporal hemorrhages. Patient was managed conservatively (N/S Dr. Duque) and eventually was discharged to [facility]. Prior to this he was admitted in March 2017 for TBI and subarachnoid hemorrhage. Psych admitting diagnosis was dementia with behavioral disturbances and aggressive behavior towards staff at retirement. Today 08/30/17 a Halicat was called after patient was found on the floor. Apparently patient was in his normal state today a.m.. Nursing staff responded to hearing a thud in his room, patient was found to be lying on the floor with foaming him from his mouth and incontinence to urine. Apparently nursing staff also noted some seizure-like activity. Patient was unresponsive and nonverbal, but eyes open. A stat CT of the head was done which showed increase in size of the acute on chronic subdural hemorrhage now 1.7 cm with mild midline shift. Patient was emergently transferred to the ICU and critical care medicine was consulted. I immediately evaluated the patient. His level of consciousness is improving but he is very agitated. I discussed with Dr. Gonzalez who also evaluated the patient. Because of increase in size of the bleed patient will need evacuation of the subdural hemorrhage. Transfuse 1 unit platelets to correct thrombocytopenia. Due to severe agitation and new increase in bleed patient will be intubated and placed on mechanical ventilation. Dr. Gonzalez has updated the power of claims attorney was agreeable to intubation and surgical evacuation of the subdural hemorrhage 08/31/17: Remains intubated sedated critically ill. Withdraws 4 extremities. Platelet count above 84 received transfusion today one pack units of platelets in anticipation of or. Dr. Gonzalez planning on evacuation of subdural hemorrhage 09/01/17: s/p Right craniotomy for subdural hemorrhage evacuation. CT of the head shows right subdural drain with improvement in the right subdural hemorrhage, small amount of residual hemorrhage and pneumocephalus. There is also enlargement of left temporal hematoma now measuring up to 6 cm, 3 mm of left-to- right midline shift. New 1.4 cm area of focal hemorrhage in the anterior inferior right temporal lobe. 09/02/17: No acute events overnight. On sedation hold opens eyes to painful stimuli withdraws all 4 extremities, localizes do not follow commands. Coags normal platelet count 95. 09/03: Unable to wean from ventilator. 09/04: Too tachypneic on CPAP trials. Unable to arouse. Probably will require trach. 09/05: Tolerating SBTs, will try to extubate but anticipate airway control problems. 09/06: passed SBT. still intermittently encephalopathic, but at times more awake. did not extubate yesterday due to cuff leak concerns. will attempt today. certainly high risk for re-intubation given persistently poor mental status. 09/07: extubated yesterday. mental status still poor, although protects airway. needs aggressive PT and pulmonary toilet. 09/08: Patient is up in a stretcher chair but unresponsive desaturating, Oxygen saturation is 87% on 10 L simple mask. Patient is unable to open eyes localizes to pain with left upper extremity with no eye-opening. He is not protecting airway, he is tachycardic in 120s. We'll place back on the bed and proceed with re intubation, and possible trach in the afternoon. I briefly spoke to the DANK Dumas, who requested reintubation. We'll consult palliative care to address goals of care 09/09: Remains encephalopathy off all sedation. Opens eyes to painful stimuli withdraws to pain left more than right localizes with left upper extremity. Dr. Serrano met with DANK, she wants to continue with aggressive care and proceed with tracheostomy. Will schedule for tracheotomy today, consult GI for PEG placement 09/10: Patient spiked fever up to 104, still has thick secretions. ID consult placed. Encephalopathic with fever, more somnolent today. Status post tracheostomy yesterday-tolerated well. PEG planned for today. Sputum culture growing staph aureus and beta strep Objective Vital Signs Date Time Temp Pulse Resp B/P (MAP) Pulse Ox O2 Delivery O2 Flow Rate FiO2 09/10/17 09:05 97 40 09/10/17 08:00 101.8 125 36 105/72 (83) 09/09/17 16:50 T-piece 09/08/17 07:00 10.00 Intake and Output 09/10/17 09/10/17 09/11/17 08:00 16:00 00:00 Intake Total 2847 ml Output Total 1600 ml Balance 1247 ml Result Diagram: 09/10/17 0505 09/10/17 0505 Other Results Microbiology Date/Time Source Procedure Growth Status 09/08/17 11:00 Sputum Endotracheal Gram Stain - Final Complete 09/08/17 11:00 Sputum Culture - Final Staphylococcus Aureus Beta Strep Not Group A Complete Imaging Ct scan shows 1.7 cm right acute on chronic subdural hemorrhage with mild midline shift and pressure effect on right lateral ventricle Objective Remarks GENERAL: 66-year-old male lying in bed unresponsive, s/p trach SKIN: Warm/dry. HEAD: Normocephalic. EYES: Pupils equal and round. No scleral icterus. No injection or drainage. ENT: No nasal bleeding or discharge. NECK: Trachea midline. Trach site clean without significant bleeding. Moderate hahn secretions CARDIOVASCULAR: Regular rate and rhythm. RESPIRATORY: Patient is intubated and entry is equal bilaterally. Bibasilar crackles GASTROINTESTINAL: Abdomen soft. Nontender. Nondistended. MUSCULOSKELETAL: No obvious deformities. NEUROLOGICAL: Patient opens eyes to painful stimuli, but more lethargic today. Localizes with left upper extremity. Withdraws to pain on all other extremities A/P Assessment and Plan ASSESSMENT/PLAN : 66yM s/p acute on chronic SDH with persistent encephalopathy and respiratory failure, protecting airway and extubated. However, given poor mental status, high risk for re-intubation and tracheostomy. will work with aggressive pulmonary toilet and PT. Neuro: Acute on chronic right subdural hemorrhage 1.7 cm with 4 mm midline shift Stable, evolving left intraparenchymal hemorrhage Acute encephalopathy, mostly metabolic at this time Alcohol dependence Dementia with behavioral disturbances - Worsening neuro status, most likely now secondary to sepsis and metabolic encephalopathy - CT of the head stat after intubation 09/08 shows improving left temporal intraparenchymal hemorrhage, and improved subdural hemorrhage - s/p Evacuation of subdural hemorrhage 08/31. Neurosurgery Dr. Gonzalez - F/U CT head 09/01 shows expansion L parenchymal hemorrhage, but good evacuation R SDH - IV Thiamine. Ativan for seizures. EEG shows encephalopathy and no seizure - Continue Cerebyx 100 mg every 8 hours. - Phenytoin level subtherapeutic. no evidence of active seizures. - Provigil for wakefulness - Psych reconsult when mental status improves. currently could not participate in psych eval. Cardiovascular: Hypertension- controlled. - Labetalol when necessary to keep SBP less than 150 mmHg, currently well controlled Pulmonary: Acute hypoxic and hypercarbic respiratory failure COPD without exacerbation LLL collapse from mucous plugging - Intubated 08/30 due to severe agitation and for airway protection. extubated 09/06. - Reintubated for acute hypoxemia and airway protection on 09/08/17. s/p trach - Vent bundle, HOB at 30 degree - DuoNeb every 6 hours when necessary - Zosyn to cover for aspiration - Status post bronchoscopy 09/08/17 GI/liver: History of hepatitis C and liver cirrhosis - Tube feeds with Jevity, PO famotidine. NPO for PEG placement - Bowel regimen - GI consulted for PEG tube placement ID: LLL pneumonia High fever sepsis - Zosyn and vancomycin for HCAP, aspiration in healthcare setting - f/u blood urine and sputum culture - Infectious disease consulted for persistent fever Endocrine: - Sliding scale insulin for glycemic control if needed Heme: Thrombocytopenia - Follow CBC and coags. Transfuse blood products and vitamin K as needed - Transfuse 2 U platelets and 1U FFP in anticipation of tracheostomy Prophylaxis: - Pepcid/SCDs. No subcutaneous heparin due to subdural hemorrhage, thrombocytopenia and anticipated procedures Discussed with Dr. Gonzalez. Also discussed with DANK Zamora and Dr. Serrano Patient is critically ill with acute hypoxemic respiratory failure worsening encephalopathy and now with worsening fever and sepsis from pneumonia. s/p trach 09/09 CCT 35 MIN excluding procedures Daria Cameron MD Sep 10, 2017 10:09
--- NOTE | 2017-09-10 11:19 | HHI.HCPN ---
Reason for visit a. To assist with evaluation and management of symptoms including: dyspnea, encephalopathy, back pain, and debility. b. To assist medical decision maker(s) with: better understanding of current medical conditions; weighing benefits/burdens of medical treatment options; making medical treatment decisions. . Subjective/Interval History No significant improvement overnight. Trachesotomy performed 09/09/17. PEG tube placement scheduled for today. Patient remains encephalopathic and minimally responsive. There are spontaneous movements but he is unable to follow commands. Now febrile -- Tmax 103.8. Less tachycardic and but still with hypotension requiring pressor support. Hg 7.5 . Renal function is dimproving. Bronchial washings from 09/08 growing Staph Aureus and Beta strep not group A. No new CXR. . Family/friend interactions Health care surrogate is at bedside at time of my visit. She sees more movement and is therefore hopeful. She understands that patient is critically ill and also understands that even if patient survives hospitalization he may not be able to return to his home again. She continues to endorse ongoing aggressive care including full code status and PEG placement. . Advance Directives Living Will: Copy in medical record Health Care Surrogate: Copy in medical record Advance Directive Specifics Date completed: April 30, 2016 . Health Care Surrogate(s): [facility]- Cassandra Alonso- [phone] . Documented care wishes: Standard verbiage . Objective Vital Signs Date Time Temp Pulse Resp B/P (MAP) Pulse Ox O2 Delivery O2 Flow Rate FiO2 09/10/17 10:00 108 09/10/17 09:05 97 40 09/10/17 08:00 101.8 125 36 105/72 (83) 96 09/10/17 08:00 125 09/10/17 08:00 40 09/10/17 06:00 113 09/10/17 04:03 98 50 09/10/17 04:00 121 09/10/17 04:00 103.8 121 16 118/64 (82) 97 09/10/17 04:00 40 09/10/17 02:00 115 09/10/17 00:23 99 50 09/10/17 00:00 40 09/10/17 00:00 118 09/10/17 00:00 101.3 118 18 108/60 (76) 98 09/09/17 22:00 116 09/09/17 20:32 100 50 09/09/17 20:00 101.7 114 18 112/60 (77) 100 09/09/17 20:00 40 09/09/17 20:00 112 09/09/17 18:00 97 09/09/17 17:11 40 09/09/17 17:10 97 40 09/09/17 16:50 98 T-piece 40 09/09/17 16:00 101.5 110 16 110/59 (76) 98 09/09/17 16:00 110 09/09/17 16:00 40 09/09/17 14:30 50 09/09/17 14:00 106 09/09/17 14:00 100 100 09/09/17 12:53 100.0 98 16 106/57 100 09/09/17 12:00 99.9 100 18 89/51 (64) 100 09/09/17 12:00 100 09/09/17 11:41 100 50 Intake & Output 09/10/17 09/10/17 07:00 19:00 Intake Total 3947 ml Output Total 1600 ml Balance 2347 ml IV Total 3447 ml Tube Feeding 300 ml Other 200 ml Output Urine Total 1600 ml # Bowel Movements 0 . Physical Exam CONSTITUTIONAL/GENERAL: This is an adequately nourished patient, intubated, on mechanical ventilation. Occasional spontaneous movement. No apparent distress. TUBES/LINES/DRAINS:Right nare NGT, Trach , PIVs, BUE soft restraints, SCDs. SKIN: No rashes, or lesions. Ecchymoses on upper extremities. No wounds seen anteriorly. Skin temperature warm. Mild diaphoresis. HEAD: Horse shoe-shaped surgical incision to Right temporoparietal head EYES: Pupils equal and round and reactive. Extraocular motions intact. No scleral icterus. No injection or drainage. Fundi not examined. ENT: Tracheostomy in place -- no bleeding. Unable to evaluate hearing.Throat without visible erythema, exudates, masses, or lesions. NECK: Trachea midline. CARDIOVASCULAR: Tachycardic without murmurs, gallops, or rubs. No JVD. Peripheral pulses symmetric. RESPIRATORY/CHEST: Symmetric, unlabored respirations. Clear to auscultation. No wheezes, rales, or rhonchi. GASTROINTESTINAL: Abdomen soft, non-tender, nondistended. No guarding. Bowel sounds present. R nare NGT GENITOURINARY: Without palpable bladder distension. MUSCULOSKELETAL: Extremities without clubbing, cyanosis, or edema. No mottling. NEUROLOGICAL: Off sedation. Some spontaneous movements of upper extremities. Does not follow commands. Withdraws to noxious stimulation with all 4 extremities. PSYCHIATRIC: Unable to assess due to level of responsiveness. . . Diagnostic Tests Laboratory Laboratory Tests Test 09/08/17 04:20 09/08/17 11:02 09/09/17 04:10 09/10/17 05:05 White Blood Count 8.2 TH/MM3 (4.0-11.0) 6.2 TH/MM3 (4.0-11.0) 7.5 TH/MM3 (4.0-11.0) Red Blood Count 3.98 MIL/MM3 (4.50-5.90) 3.12 MIL/MM3 (4.50-5.90) 2.57 MIL/MM3 (4.50-5.90) Hemoglobin 12.4 GM/DL (13.0-17.0) 9.7 GM/DL (13.0-17.0) 8.2 GM/DL (13.0-17.0) Hematocrit 37.6 % (39.0-51.0) 29.5 % (39.0-51.0) 24.6 % (39.0-51.0) Mean Corpuscular Volume 94.3 FL (80.0-100.0) 94.7 FL (80.0-100.0) 95.7 FL (80.0-100.0) Mean Corpuscular Hemoglobin 31.2 PG (27.0-34.0) 31.2 PG (27.0-34.0) 32.0 PG (27.0-34.0) Mean Corpuscular Hemoglobin Concent 33.1 % (32.0-36.0) 33.0 % (32.0-36.0) 33.4 % (32.0-36.0) Red Cell Distribution Width 15.5 % (11.6-17.2) 15.3 % (11.6-17.2) 15.8 % (11.6-17.2) Platelet Count 135 TH/MM3 (150-450) 75 TH/MM3 (150-450) 98 TH/MM3 (150-450) Mean Platelet Volume 7.4 FL (7.0-11.0) 7.5 FL (7.0-11.0) 7.9 FL (7.0-11.0) Blood Urea Nitrogen 26 MG/DL (7-18) 48 MG/DL (7-18) 22 MG/DL (7-18) Creatinine 0.59 MG/DL (0.60-1.30) 1.30 MG/DL (0.60-1.30) 0.78 MG/DL (0.60-1.30) Random Glucose 186 MG/DL (74-106) 254 MG/DL (74-106) 158 MG/DL (74-106) Calcium Level 9.8 MG/DL (8.5-10.1) 8.3 MG/DL (8.5-10.1) 8.5 MG/DL (8.5-10.1) Sodium Level 143 MEQ/L (136-145) 146 MEQ/L (136-145) 152 MEQ/L (136-145) Potassium Level 4.0 MEQ/L (3.5-5.1) 3.7 MEQ/L (3.5-5.1) 3.3 MEQ/L (3.5-5.1) Chloride Level 105 MEQ/L (98-107) 113 MEQ/L (98-107) 118 MEQ/L (98-107) Carbon Dioxide Level 32.9 MEQ/L (21.0-32.0) 24.9 MEQ/L (21.0-32.0) 27.6 MEQ/L (21.0-32.0) Anion Gap 5 MEQ/L (5-15) 8 MEQ/L (5-15) 6 MEQ/L (5-15) Estimat Glomerular Filtration Rate 137 ML/MIN (>89) 55 ML/MIN (>89) 99 ML/MIN (>89) Blood Gas Puncture Site LT RADIAL Blood Gas Patient Temperature 98.6 Blood Gas HCO3 29 mmol/L (22-26) Blood Gas Base Excess 4.8 mmol/L (-2-2) Blood Gas Oxygen Saturation 91 % (90-100) Arterial Blood pH 7.41 (7.380-7.420) Arterial Blood Partial Pressure CO2 48 mmHg (38-42) Arterial Blood Partial Pressure O2 68 mmHg (61-120) Arterial Blood Oxygen Content 17.4 Vol % (12.0-20.0) Arterial Blood Carboxyhemoglobin 1.7 % (0-4) Arterial Blood Methemoglobin 0.6 % (0-2) Blood Gas Hemoglobin 13.5 G/DL (12.0-16.0) Oxygen Delivery Device VENTILATOR Blood Gas Ventilator Setting 16/600/PEEP7 Blood Gas Inspired Oxygen 100 % Neutrophils (%) (Auto) 94.7 % (16.0-70.0) Lymphocytes (%) (Auto) 2.0 % (9.0-44.0) Monocytes (%) (Auto) 0.8 % (0.0-8.0) Eosinophils (%) (Auto) 2.1 % (0.0-4.0) Basophils (%) (Auto) 0.4 % (0.0-2.0) Neutrophils # (Auto) 7.1 TH/MM3 (1.8-7.7) Lymphocytes # (Auto) 0.2 TH/MM3 (1.0-4.8) Monocytes # (Auto) 0.1 TH/MM3 (0-0.9) Eosinophils # (Auto) 0.2 TH/MM3 (0-0.4) Basophils # (Auto) 0.0 TH/MM3 (0-0.2) CBC Comment AUTO DIFF Differential Total Cells Counted 100 Neutrophils % (Manual) 39 % (16-70) Band Neutrophils % 27 % (0-6) Lymphocytes % 1 % (9-44) Monocytes % 1 % (0-8) Eosinophils % 1 % (0-4) Neutrophils # (Manual) 7.3 TH/MM3 (1.8-7.7) Metamyelocytes 31 % (0-1) Differential Comment FINAL DIFF MANUAL Toxic Vacuolation PRESENT (NONE SEEN) Dohle Bodies PRESENT (NONE SEEN) Platelet Estimate LOW (NORMAL) Platelet Morphology Comment NORMAL (NORMAL) Total Protein 6.8 GM/DL (6.4-8.2) Albumin 2.3 GM/DL (3.4-5.0) Alkaline Phosphatase 90 U/L (45-117) Aspartate Amino Transf (AST/SGOT) 27 U/L (15-37) Alanine Aminotransferase (ALT/SGPT) 39 U/L (12-78) Total Bilirubin 1.2 MG/DL (0.2-1.0) . Result Diagram: 09/10/17 0505 09/10/17 0505 Microbiology Microbiology Date/Time Source Procedure Growth Status 09/08/17 12:25 Bronchial Washings Left Lower Lobe Fungal Smear - Final NO FUNGAL ELEMENTS SEEN. Resulted 09/08/17 12:25 Bronchial Washings Left Lower Lobe Fungal Culture Pending Resulted 09/08/17 12:25 Bronchial Washings Left Lower Lobe Acid Fast Stain - Final NO ACID FAST BACILLI SEEN Resulted 09/08/17 12:25 Bronchial Washings Left Lower Lobe Mycobacterial Culture Pending Resulted 09/08/17 12:25 Bronchial Washings Left Lower Lobe Gram Stain - Final Complete 09/08/17 12:25 Bronchial Culture - Final Staphylococcus Aureus Beta Strep Not Group A Complete 09/08/17 11:00 Sputum Endotracheal Gram Stain - Final Complete 09/08/17 11:00 Sputum Culture - Final Staphylococcus Aureus Beta Strep Not Group A Complete 09/09/17 13:00 Urine Catheterized Urine Urine Culture Pending Received . Imaging Last Impressions Chest X-Ray 09/09/17 0000 Signed Impressions: Service Date/Time: Saturday, September 09, 2017 15:08 - CONCLUSION: Satisfactory position of tracheostomy tube without evidence of pneumothorax. Worsening pulmonary edema Nhan Douglas MD Head CT 09/08/17 0000 Signed Impressions: Service Date/Time: Friday, September 08, 2017 14:42 - CONCLUSION: 1. The left temporal lobe blood products have decreased in size and density since the prior study. There is persistent residual surrounding edema. 2. The right-sided drain . has been removed and there is persistent low density extra-axial collection in the right parietal region and high density likely within the right frontal region stable from the prior study. There is no midline shift. Rakesh Miramontes MD . Procedures 08/30/2017-intubated and placed on mechanical ventilation 09/06/2017-medical extubated 09/08/2017-Reintubated 09/08/2017-Bronchoscopy 09/09/17 - Tracheostomy . . 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 (5) Acute encephalopathy (6) Thrombocytopenia (7) Probabe seizure (8) DEMENTIA IN OTH DISEASES CLASSD ELSWHR W BEHAVIORAL DISTURB (9) Hypertension (10) Hepatic cirrhosis (11) Diabetes (12) Chronic low back pain Symptom Scale: (1) Shortness of breath 0-10 Scale: Unable to quantify Comment: Hx of COPD. Now with pneumonia. s/p bronchoscopy 09/08/17. s/p tracheostomy 09/09/17. . (2) Pain 0-10 Scale: Unable to quantify Comment: Patient unable to locate, quantify, qualify pain. Had history of chronic back pain requiring Lortab 10 QID scheduled. Sources of pain currently might include head pain from recent subdural and surgery; prolonged bedbound status; orotracheal intubation; urinary catheter; venous access lines. Will need to watch carefully for non-verbal signs of pain. Currently, there are no opiate analgesic orders. . (3) Confusion 0-10 Scale: Unable to quantify Comment: Encephalopathy: Multifactorial. Multiple TBIs with recent acute on chronic subdural requiring craniectomy on 08/31/17. Hx of Wernicke-Korsakoff syndrome with behavioral issues. 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 Unclear at this time to what extent he will recover neurologic function and cognitive abilities. . (4) Debility 0-10 Scale: Unable to quantify Comment: Progressive. Multiple hospital visits, x5 visits since April. Recent hospitalization for TBI and was discharged to a SNF. . Pertinent Non-Medical Issues Psychosocial: Spiritual: No restorationist affiliation Legal: Patient has a [facility] and Living Will Ethical issues impacting care: None identified at this time. . Important Contacts Friend- [facility]- Yesi Alonso- [phone] Daughter- Alternate [facility]-Aneta Cox . Prognosis Patient is a 66 years old male with a past medical history of Wernicke- Korsakoff syndrome, COPD, TBI with subdural hematoma, previous tibia with subarachnoid hemorrhage, suicidal ideation, alcohol abuse, and alcohol cirrhosis. Recent hospitalization was 08/07/17 after patient passed out in a bar and sustained a traumatic brain injury with a left temporal lobe hemorrhage and small right parietal subdural hemorrhage that were conservatively managed. Patient was found on the floor, foaming in his mouth, incontinent of urine and seizure like activity in Psych. CT head revealed acute on chronic subdural hemorrhage now 1.7 cm with mild midline shift. Patient underwent right craniotomy for evacuation of subdural hemorrhage. Clinical course complicated with poor mental status and respiratory failure requiring reintubation and placement on mechanical ventilation. Given ongoing comorbidities, patient remains at high risk for complications, deterioration and decline. . Code Status: Full Code Plan PLAN: Legal decision maker: Patient is s/p tracheostomy on mechanical ventilation, minimally responsive and unable to make his own medical decisions. It reamins unclear if he will ever regain ability to make his own medical decisions. Patient designated Cassandra Alonso who is currently making medical decisions for the patient and his daughter Aneta Cox as alternate HCS. The daughter is currently incarcerated in [facility]. Goals of medical treatment: Ms. Alonso feels she knows the patient very well. The patient decided to complete advance directives on his own when he was diagnosed with cirrhosis. She feels he is a fighter and has overcome multiple obstacles in the past and would continue to fight to try and get back to his prior functional status. On the other hand, he would not want to be maintained indefinitely on life support . She feels strongly at this time, that he would want aggressive care including tracheostomy. If he continues to fail in spite of these efforts or it become clear that he can't recover to a level of functioning that would give him meaning and purpose, then she would agree to transition to "comfort measures only," and put him "in God's hands." CODE STATUS: Full Code- SYMPTOMS: * Shortness of breath: Hx of COPD. Pt was intubated on 08/30/17 and extubated . Patient desaturating and reintubated s/p bronchoscopy 09/08/17. Tracheostomy on 09/09/17. Patient is febrile and sputum is growing staph and strep. Dyspnea being addressed with antibiotic coverage and vent support. No further recommendations at this time. * Encephalopathy: Multifactorial. Multiple TBIs with recent acute on chronic subdural requiring craniectomy on 08/31/17. Hx of Wernicke-Korsakoff syndrome. Patient now febrile with probably pneuonia which may be compounding encephalopathy. 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 Unclear at this time to what extent he will recover neurologic function and cognitive abilities. * Pain: Patient unable to locate, quantify, qualify pain. Had history of chronic back pain requiring Lortab 10 QID scheduled. Sources of pain currently might include head pain from recent subdural and surgery; prolonged bedbound status; orotracheal intubation; urinary catheter; venous access lines. Will need to watch carefully for non-verbal signs of pain. Currently, there are no opiate analgesic orders. == PEG placement scheduled for 09/10/17. == Disposition: Should he survive the hospitalization, he will likely require long-term facility placement and anticipate recurrent issues with infection. == Palliative care will continue to follow to assist with symptom management and to further clarify goals of medical treatment as the clinical course evolves. . . Shemar Serrano MD Sep 10, 2017 11:19
[2017-09-10] MEDS ORDERED: PROPOFOL 200 MG/20 ML AMP IV ONE (12:00)
[2017-09-10] MEDS ORDERED: LACTATED RINGER'S 1000 ML INJ 1,000 ML IV ONE (12:00)
[2017-09-10] MEDS ORDERED: LIDOCAINE HCL 1% PF 5 ML SYRINGE OTHER ONE (12:00)
[2017-09-10] MEDS: VANCOMYCIN INJ 1,250 MG in SODIUM CHLOR 0.9% 250 ML INJ 250 ML IV SCH (14:45)
[2017-09-10] MEDS: PHENYTOIN SUSP 100 MG/4 ML CUP PO SCH ×2 (14:45→20:36)
[2017-09-10 15:21] LABS: ALKALINE PHOSPHATASE 91 U/L (45-117); ALT (GPT) 32 U/L (12-78); ANION GAP 6 MEQ/L (5-15); AST (GOT) 21 U/L (15-37); BICARBONATE 27.5 MEQ/L (21.0-32.0); BLOOD UREA NITROGEN 19 MG/DL (7-18); CHLORIDE 118 MEQ/L (98-107); GLOMERULAR FILTRATION RATE 110 ML/MIN (>89); MAGNESIUM 2.5 MG/DL (1.5-2.5); POTASSIUM 3.9 MEQ/L (3.5-5.1); SODIUM (NA) 151 MEQ/L (136-145); TOTAL BILIRUBIN ADULT 1.1 MG/DL (0.2-1.0)
--- NOTE | 2017-09-10 15:57 | PD.ID.CON ---
History of Present Illness Service ID Consult Requested By Dr Cameron Reason for Consult PNA Primary Care Physician Unknown Diagnoses: History of Present Illness Patient is a 66-year-old white male heavy alcoholic with h/o history of Wernicke -Korsakoff syndrome, h/o TBI with subdural hematoma, previous TBI with subarachnoid hemorrhage, suicidal ideation, alcohol abuse, COPD and alcohol- induced cirrhosis was admitted to the psychiatric service under [facility] act on with diagnosis of dementia with behavioral disturbances and [facility]. Patient was hospitalized here 08/07/17 through 08/23/17 after passing out at a bar and sustaining a traumatic brain injury. At that time he did have bilateral subdural hemorrhages and small bitemporal hemorrhages. Patient was managed conservatively (N/S Dr. Duque) and eventually was discharged to [facility]. Prior to this he was admitted in March 2017 for TBI and subarachnoid hemorrhage. On 08/30/17 a Halicat was called after patient was found on the floor unresponsive and nonverbal, incontinent and with seizure like activity A stat CT of the head was done which showed increase in size of the acute on chronic subdural hemorrhage now 1.7 cm with mild midline shift. Patient was emergently transferred to the ICU intubated and placed on mechanical ventilation. Dr. Gonzalez was consulted Sp Right craniotomy for subdural hemorrhage evacuation for Right frontal parietal occipital acute to on chronic subdural hemorrhage with loculations and mass effect with midline shift on Aug 31, 2017 by Zoey Gonzalez M.D. Pt was planned to have a right craniotomy for acute and chronic subdural hemorrhage evacuation along with lysis of subdural membranes He developped fever up to 103.8, today down to 101.1 Pt was stein cultured, sputum clx positive for MSSA, beta strep He has substantial bandemia of 27 % Review of Systems ROS Limitations: Intubated, Altered Mental Status, Unresponsive Past Family Social History Allergies: Coded Allergies: Sulfa (Sulfonamide Antibiotics) (Unverified Allergy, Severe, UNKNOWN - CHILD, 08/07/17) Past Medical History Alcohol dependence Liver cirrhosis Hepatitis C Dementia with behavioral disturbances Wernicke-Korsakoff's syndrome Subdural hemorrhage TBI COPD Past Surgical History TBI with subarachnoid hemorrhage March 2017 TBI with subdural hemorrhage bilateral, bitemporal hemorrhage August 2017 Active Ordered Medications Medications where reviewed in EMR Antibiotics Include: vancomycin zosyn Family History Unable to obtain Social History History of heavy alcohol dependence, previous cocaine use h/o heavy tobacco use up to 4 ppd Physical Exam Vital Signs Vital Signs Date Time Temp Pulse Resp B/P (MAP) Pulse Ox O2 Delivery O2 Flow Rate FiO2 09/10/17 14:00 108 09/10/17 12:26 100 40 09/10/17 12:00 40 09/10/17 12:00 99.9 105 18 111/67 (82) 99 09/10/17 12:00 105 09/10/17 10:00 108 09/10/17 09:05 97 40 09/10/17 08:00 101.8 125 36 105/72 (83) 96 09/10/17 08:00 125 09/10/17 08:00 40 09/10/17 06:00 113 09/10/17 04:03 98 50 09/10/17 04:00 121 09/10/17 04:00 103.8 121 16 118/64 (82) 97 09/10/17 04:00 40 09/10/17 02:00 115 09/10/17 00:23 99 50 09/10/17 00:00 40 09/10/17 00:00 118 09/10/17 00:00 101.3 118 18 108/60 (76) 98 09/09/17 22:00 116 09/09/17 20:32 100 50 09/09/17 20:00 101.7 114 18 112/60 (77) 100 09/09/17 20:00 40 09/09/17 20:00 112 09/09/17 18:00 97 09/09/17 17:11 40 09/09/17 17:10 97 40 09/09/17 16:50 98 T-piece 40 09/09/17 16:00 101.5 110 16 110/59 (76) 98 09/09/17 16:00 110 09/09/17 16:00 40 Physical Exam CONSTITUTIONAL/GENERAL: This is an adequately nourished patient, in no apparent distress.\Sedated [facility] TUBES/LINES/DRAINS: SKIN: No jaundice, rashes, or lesions. Skin temperature appropriate. Not diaphoretic. HEAD: R parietal incision healing nicely EYES: Pupils equal and round and reactive. Extraocular motions intact. No scleral icterus. No injection or drainage. Fundi not examined. ENT: Hearing not tested. Nose without bleeding or purulent drainage. Throat without visible erythema, exudates, masses, or lesions. NECK: Trachea midline. Supple, nontender. CARDIOVASCULAR: Regular rate and rhythm without murmurs, gallops, or rubs. No JVD. Peripheral pulses symmetric. RESPIRATORY/CHEST: Symmetric, unlabored respirations. Clear to auscultation. Breath sounds equal bilaterally. No wheezes, rales, or rhonchi. GASTROINTESTINAL: Abdomen soft, non-tender, nondistended. No hepato-splenomegaly , or palpable masses. No guarding. Bowel sounds present. GENITOURINARY: Without palpable bladder distension. Mendoza catheter in place with clear yellow urine MUSCULOSKELETAL: Extremities without clubbing, cyanosis, or edema. No joint tenderness or effusion noted. No calf tenderness. No mottling or clubbing. LYMPHATICS: No palpable cervical or supraclavicular adenopathy. NEUROLOGICAL: sedated, not following commands, but moves spontaneously all 4 extremeties PSYCHIATRIC: No obvious anxiety/depression. no apparent hallucinations or other psychotic thought process. Laboratory Laboratory Tests Test 09/10/17 05:05 White Blood Count 7.5 Red Blood Count 2.57 Hemoglobin 8.2 Hematocrit 24.6 Mean Corpuscular Volume 95.7 Mean Corpuscular Hemoglobin 32.0 Mean Corpuscular Hemoglobin Concent 33.4 Red Cell Distribution Width 15.8 Platelet Count 98 Mean Platelet Volume 7.9 Neutrophils (%) (Auto) 94.7 Lymphocytes (%) (Auto) 2.0 Monocytes (%) (Auto) 0.8 Eosinophils (%) (Auto) 2.1 Basophils (%) (Auto) 0.4 Neutrophils # (Auto) 7.1 Lymphocytes # (Auto) 0.2 Monocytes # (Auto) 0.1 Eosinophils # (Auto) 0.2 Basophils # (Auto) 0.0 CBC Comment AUTO DIFF Differential Total Cells Counted 100 Neutrophils % (Manual) 39 Band Neutrophils % 27 Lymphocytes % 1 Monocytes % 1 Eosinophils % 1 Neutrophils # (Manual) 7.3 Metamyelocytes 31 Differential Comment FINAL DIFF MANUAL Toxic Vacuolation PRESENT Dohle Bodies PRESENT Platelet Estimate LOW Platelet Morphology Comment NORMAL Blood Urea Nitrogen 22 Creatinine 0.78 Random Glucose 158 Total Protein 6.8 Albumin 2.3 Calcium Level 8.5 Alkaline Phosphatase 90 Aspartate Amino Transf (AST/SGOT) 27 Alanine Aminotransferase (ALT/SGPT) 39 Total Bilirubin 1.2 Sodium Level 152 Potassium Level 3.3 Chloride Level 118 Carbon Dioxide Level 27.6 Anion Gap 6 Estimat Glomerular Filtration Rate 99 Date/Time Source Procedure Growth Status 09/08/17 12:25 Bronchial Washings Left Lower Lobe Fungal Smear - Final NO FUNGAL ELEMENTS SEEN. Resulted 09/08/17 12:25 Bronchial Washings Left Lower Lobe Fungal Culture Pending Resulted 09/09/17 13:00 Urine Catheterized Urine Urine Culture - Preliminary NO GROWTH IN 24 HOURS. Resulted Result Diagram: 09/10/17 0505 09/10/17 0505 Imaging Last Impressions Chest X-Ray 09/09/17 0000 Signed Impressions: Service Date/Time: Saturday, September 09, 2017 15:08 - CONCLUSION: Satisfactory position of tracheostomy tube without evidence of pneumothorax. Worsening pulmonary edema Nhan Douglas MD Head CT 09/08/17 0000 Signed Impressions: Service Date/Time: Friday, September 08, 2017 14:42 - CONCLUSION: 1. The left temporal lobe blood products have decreased in size and density since the prior study. There is persistent residual surrounding edema. 2. The right-sided drain has been removed and there is persistent low density extra-axial collection in the right parietal region and high density likely within the right frontal region stable from the prior study. There is no midline shift. Rakesh Miramontes MD Assessment and Plan Assessment and Plan acute and chronic post-traumatic subdural hemorrhage Acute VDRF Fever, bandemia PNA, MSSA streptococcus cont broad spectrum abx fu P blood clx Jessica Jane MD Sep 10, 2017 15:51
--- NOTE | 2017-09-10 16:16 | GIPROC ---
[facility] [address] [facility]. [facility], [id number] EGD WITH PEG PROCEDURE REPORT EXAM DATE: 09/10/2017 PATIENT NAME: Nhan Valentine MR#: [id number] BIRTHDATE: 1950 ATTENDING: Popeye Vargas MD ORDER #: [id number] EXPERIENCE DESIGNER: Bert Schmitt and Latosha Frost STATUS: inpatient INDICATIONS: The patient is a 66 yr old male here for an EGD with PEG due to dysphagia and placement of PEG PROCEDURE PERFORMED: EGD with PEG placement MEDICATIONS: None and Per Anesthesia. TOPICAL ANESTHETIC: CONSENT: The patient understands the risks and benefits of the procedure and understands that these risks include, but are not limited to: sedation, allergic reaction, infection, perforation and/or bleeding. Alternative means of evaluation and treatment include, among others: physical exam, x-rays, and/or surgical intervention. The patient elects to proceed with this endoscopic procedure. medical equipment was checked for proper function. Hand hygiene and appropriate measures for infection prevention was taken. After the risks, benefits and alternatives of the procedure were thoroughly explained, Informed consent was verified, confirmed and timeout was successfully executed by the treatment team. The patient was anesthetized with topical anesthesia and the Pentax [id number] endoscope was introduced through the mouth and advanced to the descending duodenum. The instrument was slowly withdrawn as the mucosa was fully examined. Moderate gastritis was found in the body of the stomach. The stomach was then inflated with air, and by a combination of transillumination and manual palpation, the site for the gastrostomy tube placement was selected and marked on the anterior abdominal wall. The skin of the anterior abdomen was surgically prepped and draped with sterile towels. Utilizing strict sterile technique, the selected site was then anesthetized with 1% xylocaine by injection into the skin and subcutaneous tissue. A 1 cm incision was made through the skin and subcutaneous tissue, and the needle/cannula assembly was then passed through the abdominal wall and through the anterior wall of the stomach, maintaining visualization with the endoscope. A snare device previously placed through the instrument channel was then opened and placed around the cannula, the needle was removed, and the insertion wire was passed through the cannula and into the stomach lumen. The snare was then loosened from the cannula, and repositioned to snare the insertion wire. The snare was then pulled up to the endoscope distal tip, and the scope was then withdrawn bringing with it the snare and insertion wire. The insertion wire was then released from the snare, and then loop-attached to the Bard 20 Fr gastrostomy tube. Using the "pull technique", the G-tube was then pulled into place by traction on the insertion wire at the abdominal wall end. The G-tube insertion site was then cleansed once again, and the external bolster was placed over the tube to secure it to the abdominal wall. A sterile dressing was then applied, and the procedure terminated. no abnormalities The gastroscope was then slowly withdrawn and removed. ADVERSE EVENT: There were no complications. IMPRESSIONS: 1. Moderate gastritis was found in the body of the stomach 2. No abnormalities RECOMMENDATIONS: PEG recomendations: 1- NPO for 6 hours except for meds 2- Flush PEG tube every 6 hours with water and after each PEG feeding 3- May resume regular diet in the morning 4- May use Ensure or Boost etc. for PEG tube feeding REPEAT EXAM: procedure as needed Popeye Vargas MD eSigned: Popeye Vargas MD 09/10/2017 4:16 PM cc: PATIENT NAME: Nhan Valentine MR#: [id number]
[2017-09-10] MEDS: CHLORHEXIDINE GLUCONATE 2 % 1 PACK (2 CLOTHS) TOP SCH (22:32)
[2017-09-11] VITALS (20 sets, daily range): BP systolic 98–118; BP diastolic 60–70; PULSE 85–111; RESP 23–31; TEMP 99.1–102.4; O2SAT 96–100
[2017-09-11] MEDS: VANCOMYCIN INJ 1,250 MG in SODIUM CHLOR 0.9% 250 ML INJ 250 ML IV SCH ×2 (02:20→15:59)
[2017-09-11] MEDS: RESP: ALBUTEROL 2.5 MG/IPRATROPIUM 0.5 MG NEB (SCH) INH ×6 (03:21→23:21)
[2017-09-11 03:58] LABS: AUTOMATED NEUTROPHIL # 6.1 TH/MM3 (1.8-7.7); BASOPHIL % 0.4 % (0.0-2.0); EOSINOPHIL # 0.3 TH/MM3 (0-0.4); EOSINOPHIL % 4.4 % (0.0-4.0); HEMATOCRIT 24.2 % (39.0-51.0); LYMPH % 3.7 % (9.0-44.0); LYMPHOCYTE # 0.3 TH/MM3 (1.0-4.8); MEAN CELL VOLUME 94.4 FL (80.0-100.0); MEAN CORPUSCULAR HEMOGLOBIN 30.6 PG (27.0-34.0); MEAN CORPUSCULAR HGB CONC 32.4 % (32.0-36.0); MONO % 3.8 % (0.0-8.0); NEUT % 87.7 % (16.0-70.0); PLATELET COUNT 104 TH/MM3 (150-450); RED BLOOD COUNT 2.56 MIL/MM3 (4.50-5.90); RED CELL DISTRIBUTION WIDTH 15.8 % (11.6-17.2); WHITE BLOOD COUNT 6.9 TH/MM3 (4.0-11.0)
[2017-09-11 04:02] LABS: HEMO FLAGS AUTO DIFF
[2017-09-11 04:08] LABS: ANION GAP 6 MEQ/L (5-15); AST (GOT) 18 U/L (15-37); BICARBONATE 27.5 MEQ/L (21.0-32.0); BLOOD UREA NITROGEN 16 MG/DL (7-18); CHLORIDE 116 MEQ/L (98-107); GLOMERULAR FILTRATION RATE 127 ML/MIN (>89); POTASSIUM 3.5 MEQ/L (3.5-5.1); SODIUM (NA) 149 MEQ/L (136-145)
[2017-09-11 04:11] LABS: ALKALINE PHOSPHATASE 85 U/L (45-117); ALT (GPT) 25 U/L (12-78); TOTAL BILIRUBIN ADULT 1.1 MG/DL (0.2-1.0)
[2017-09-11 04:44] LABS: BANDS 22 % (0-6); DOHLE BODIES PRESENT (NONE SEEN); EOSINOPHILS 2 % (0-4); METAMYELOCYTES 15 % (0-1); MYELOCYTES 2 % (0-0); NEUTROPHIL # MANUAL DIFF 6.1 TH/MM3 (1.8-7.7); POLYS (SEG NEUTROPHILS) 50 % (16-70); SCAN/DIFF FINAL DIFF MANUAL; TOXIC VACUOLATION PRESENT (NONE SEEN); WBC DIFF SAMPLE 100
[2017-09-11 04:45] LABS: PLATELET ESTIMATE SMEAR LOW (NORMAL); PLATELET MORPHOLOGY NORMAL (NORMAL)
[2017-09-11 04:46] LABS: HELMET CELLS OCC (NORMAL)
[2017-09-11] MEDS: PIPERACIL-TAZO 4.5 GM PREMIX 100 ML IV SCH ×4 (04:54→21:52)
--- NOTE | 2017-09-11 05:02 | RADRPT ---
EXAM DATE/TIME: 09/11/2017 03:53 [facility] COMPARISON: CHEST SINGLE AP, September 09, 2017, 15:08. INDICATIONS : Respiratory disease. MEDICAL HISTORY : Cardiovascular disease. Seizures. Chronic obstructive pulmonary disease. SURGICAL HISTORY : None. ENCOUNTER: Subsequent ACUITY: 2 weeks PAIN SCORE: Non-responsive. LOCATION: Bilateral chest FINDINGS: 2 AP semierect views of the chest were obtained and demonstrate an interval decrease in the left lois r and bibasilar opacity with moderate residual remaining on the left. The left hemidiaphragm remains obscured and the left costophrenic angle remains blunted. The heart size is at the upper limits of no rmal. The patient is mildly rotated to the left. The tracheostomy tube and right internal jugular shalom tral venous line remain in place. CONCLUSION: Mildly rotated study to the left with apparent improvement in pulmonary infiltrates. Residual remains in the left lung base as well as a small effusion. Damien García MD on September 11, 2017 at 4:59 Board Certified Radiologist. This report was verified electronically.
[2017-09-11] MEDS: PHENYTOIN SUSP 100 MG/4 ML CUP PO SCH ×3 (05:18→21:53)
[2017-09-11] MEDS: ACETAMINOPHEN 325 MG TAB PO PRN ×2 (05:21→12:53)
[2017-09-11] MEDS: 1/2 NS + KCL 20 MEQ INJ 1,000 ML IV SCH ×2 (08:00→13:59)
[2017-09-11] MEDS: THIAMINE INJ 100 MG in SODIUM CHLORIDE 0.9% INJ 100 ML IV SCH (08:30)
[2017-09-11] MEDS: BISACODYL 10 MG SUPP RECTAL SCH (08:30)
[2017-09-11] MEDS: DOCUSATE SODIUM 50 MG/SENNA 8.6 MG TAB PO SCH ×2 (08:30→21:53)
[2017-09-11] MEDS: MODAFINIL 200 MG TAB PO SCH (08:30)
[2017-09-11] MEDS: FAMOTIDINE 20 MG TAB NG SCH ×2 (08:30→21:53)
[2017-09-11] MEDS: SODIUM CHLORIDE 0.9% FLUSH 10 ML FLUSH IV FLUSH SCH ×2 (08:31→21:00)
[2017-09-11] MEDS: CHLORHEXIDINE 0.12% (ORAL KIT) 15 ML CUP MT SCH ×2 (08:31→21:58)
[2017-09-11] MEDS: SODIUM CHLORIDE 1 GRAM TAB PO SCH ×3 (08:32→18:30)
--- NOTE | 2017-09-11 09:18 | HHI.NSPN ---
History Chief Complaint: Intubated s/p right crani for SDH. Interval History 66-year-old gentleman who was admitted to the [facility] three days ago under the [place] Act. 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 This was treated nonsurgically. He was discharged a couple of weeks ago to rehab. At the rehab place three days ago he was using a pair of scissors to cut electrical cords and also pull his teeth and was being very aggressive towards the staff. He has had some difficulty with his speech and confusion and short-term memory loss ever since his traumatic brain injury. According to his power of patent attorney, he has had multiple admissions recently over the past couple of months for traumatic brain injury and bleeds related to falls and alcohol abuse. Apparently at this afternoon the patient was found on the floor by the psychiatric nursing staff and was not responsive and was incontinent of his urine and it was felt like he may have had a seizure. 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 This has progressed since his previous CT scan a couple weeks ago. He was transferred to the intensive care unit and I was contacted by the monkey breeder. The patient is starting to respond more and is now awake, although is confused and moving all four extremities, although less spontaneous on the left side. He is starting to verbalize also whereas in the [facility] he was unresponsive with contractures and spasms. 09/01/17: Pt sedated on Diprivan. Not opening eyes. Pupils 3mm bilaterally reactive bilaterally. Withdraws all 4 extremities to pain. 09/02/17: Pt sedated on Diprivan. Not opening eyes. Withdraws all 4 extremities to pain left side more than right side. Pupils 3mm bilaterally reactive bilaterally. Intubated. 09/03/17: Pt sedated on Diprivan but on hold for 45min. Not opening eyes but moves head to voice. Not following commands. 09/04/17: Pts Diprivan being continuously held. Not opening eyes but moves head toward side of bed voice is coming from. Not following commands. Pt Continuously trying to cough ET Tube out. Only mild sputum on ET suctioning. 09/05/17: Patient opening eyes slightly to voice. Pupils 3 mm bilaterally. Not following commands. 09/08/17: Pt was reintubated this morning. Reportedly was very lethargic. Currently on Diprivan drip. Not following commands. 09/09/17: Pt intubated but off sedation since yesterday am. Opens eyes to pain. Not following commands. Withdraws Left side more than Right side. Pupils 2mm bilaterally reactive bilaterally. Pt getting platelet transfusion and is on pressor to keep Map greater than 65. 09/10/17: Pt with trach in place. Off sedative drips currently. Opens eyes slightly to pain. Not following commands. 09/11/17: Pt opens eyes to pain. Not following commands. Trach in place, on vent. System Review Comments Not able to obtain given level of alertness. Exam Results Vital Signs Date Time Temp Pulse Resp B/P (MAP) Pulse Ox O2 Delivery O2 Flow Rate FiO2 09/11/17 07:48 96 40 09/11/17 06:00 106 09/11/17 04:00 102.4 31 118/69 (85) 09/09/17 16:50 T-piece 09/08/17 07:00 10.00 Intake and Output 09/11/17 09/11/17 09/12/17 08:00 16:00 00:00 Intake Total 1100 ml Output Total 1900 ml Balance -800 ml Physical Examination General: Pt off sedation, resting in NAD. Eyes: Pupils 3mm bilaterally reactive bilaterally. Resp: Trach in place. Volume control. Rate 16. Peep 12. FiO2 40%. RR 12. CTA bilaterally. Heart: NSR no murmurs. Abd: Soft positive bs Skin: Incision clean and dry without any signs of infection. Muscle: Not following for muscle testing. Withdraws extremities to pain. Neuro: Pt off sedative drips. Not following commands. Opening eyes slightly to pain. Pupils 3mm bilaterally reactive bilaterally. Withdraws extremities to pain. Lab, Micro, Other Results Last Impressions Chest X-Ray 12/7/17 0600 Signed Impressions: Service Date/Time: September 03:53 - CONCLUSION: Mildly rotated study to the left with apparent improvement in pulmonary infiltrates. Residual remains in the left lung base as well as a small effusion. Damien García MD Head CT 09/08/17 0000 Signed Impressions: Service Date/Time: Friday, September 08, 2017 14:42 - CONCLUSION: 1. The left temporal lobe blood products have decreased in size and density since the prior study. There is persistent residual surrounding edema. 2. The right-sided drain has been removed and there is persistent low density extra-axial collection in the right parietal region and high density likely within the right frontal region stable from the prior study. There is no midline shift. Rakesh Miramontes MD Laboratory Tests Test 09/10/17 14:22 09/11/17 03:37 Blood Urea Nitrogen 19 MG/DL 16 MG/DL Creatinine 0.71 MG/DL 0.63 MG/DL Random Glucose 142 MG/DL 114 MG/DL Total Protein 7.0 GM/DL 6.8 GM/DL Albumin 2.3 GM/DL 2.2 GM/DL Calcium Level 8.7 MG/DL 8.5 MG/DL Magnesium Level 2.5 MG/DL Alkaline Phosphatase 91 U/L 85 U/L Aspartate Amino Transf (AST/SGOT) 21 U/L 18 U/L Alanine Aminotransferase (ALT/SGPT) 32 U/L 25 U/L Total Bilirubin 1.1 MG/DL 1.1 MG/DL Sodium Level 151 MEQ/L 149 MEQ/L Potassium Level 3.9 MEQ/L 3.5 MEQ/L Chloride Level 118 MEQ/L 116 MEQ/L Carbon Dioxide Level 27.5 MEQ/L 27.5 MEQ/L Anion Gap 6 MEQ/L 6 MEQ/L Estimat Glomerular Filtration Rate 110 ML/MIN 127 ML/MIN White Blood Count 6.9 TH/MM3 Red Blood Count 2.56 MIL/MM3 Hemoglobin 7.8 GM/DL Hematocrit 24.2 % Mean Corpuscular Volume 94.4 FL Mean Corpuscular Hemoglobin 30.6 PG Mean Corpuscular Hemoglobin Concent 32.4 % Red Cell Distribution Width 15.8 % Platelet Count 104 TH/MM3 Mean Platelet Volume 8.3 FL Neutrophils (%) (Auto) 87.7 % Lymphocytes (%) (Auto) 3.7 % Monocytes (%) (Auto) 3.8 % Eosinophils (%) (Auto) 4.4 % Basophils (%) (Auto) 0.4 % Neutrophils # (Auto) 6.1 TH/MM3 Lymphocytes # (Auto) 0.3 TH/MM3 Monocytes # (Auto) 0.3 TH/MM3 Eosinophils # (Auto) 0.3 TH/MM3 Basophils # (Auto) 0.0 TH/MM3 CBC Comment AUTO DIFF Differential Total Cells Counted 100 Neutrophils % (Manual) 50 % Band Neutrophils % 22 % Lymphocytes % 4 % Monocytes % 5 % Eosinophils % 2 % Neutrophils # (Manual) 6.1 TH/MM3 Metamyelocytes 15 % Myelocytes 2 % Differential Comment FINAL DIFF MANUAL Toxic Vacuolation PRESENT Dohle Bodies PRESENT Platelet Estimate LOW Platelet Morphology Comment NORMAL Helmet Cells OCC Phenytoin (Dilantin) Level 5.5 MCG/ML Medical Decision Making Impression and Plan A: 66 y/o M s/p right 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 There is also resolving left temporal lobe hemorrhage and encephalomalacia from his previous injury. 2. Seizure likely related to the traumatic brain injury versus alcohol withdrawal. 3. Heavy alcohol abuse with associated cirrhosis. 4. Thrombocytopenia likely related to alcohol abuse. 5. COPD on continuous home oxygen. PLAN: Continue with neuro checks Continue to monitor labs especially his thrombocytopenia. Continue with critical care. Rehab efforts Bhaskar Bazan Sep 11, 2017 9:18 am
--- NOTE | 2017-09-11 12:07 | HHI.HCPN ---
Reason for visit a. To assist with evaluation and management of symptoms including: dyspnea, encephalopathy, back pain, and debility. b. To assist medical decision maker(s) with: better understanding of current medical conditions; weighing benefits/burdens of medical treatment options; making medical treatment decisions. . Subjective/Interval History Patient continues with elevated temps. Infectious Disease has been consulted. PEG tube placed 09/10/17 but tube feeds have not started yet. Primary nurse reports he moved his head once when she shined a light in his eyes; otherwise no improvement in overall responsiveness. Patient does not open eyes for me and is unable to follow commands. . . . Family/friend interactions No family at bedside today. . Advance Directives Living Will: Copy in medical record Health Care Surrogate: Copy in medical record Advance Directive Specifics Date completed: April 30, 2016 . [facility] Care Surrogate([facility] [phone] . Documented care wishes: Standard [place] livng will verbiage -- he would not want life prolonging measures if he were found to have a terminal or end-stage condition or persistent vegetative state. . Objective Vital Signs Date Time Temp Pulse Resp B/P (MAP) Pulse Ox O2 Delivery O2 Flow Rate FiO2 09/11/17 11:22 96 40 09/11/17 10:32 107 09/11/17 08:00 109 09/11/17 08:00 100.6 109 28 100/60 (73) 98 09/11/17 08:00 40 09/11/17 07:48 96 40 09/11/17 06:00 106 09/11/17 04:45 99 40 09/11/17 04:00 40 09/11/17 04:00 111 09/11/17 04:00 102.4 111 31 118/69 (85) 98 09/11/17 02:00 110 09/11/17 01:45 98 40 09/11/17 00:00 40 09/11/17 00:00 100.4 102 25 108/65 (79) 97 09/11/17 00:00 102 09/10/17 23:30 93 40 09/10/17 22:30 98 40 09/10/17 22:00 106 09/10/17 20:05 97 40 09/10/17 20:00 40 09/10/17 20:00 96 09/10/17 20:00 101.7 103 32 103/62 (76) 98 09/10/17 18:00 100 09/10/17 16:00 100.2 103 20 99/59 (72) 99 09/10/17 16:00 103 09/10/17 16:00 40 09/10/17 15:32 100 40 09/10/17 14:00 108 09/10/17 12:26 100 40 09/10/17 12:00 40 09/10/17 12:00 99.9 105 18 111/67 (82) 99 09/10/17 12:00 105 Intake & Output 09/11/17 09/11/17 07:00 19:00 Intake Total 1100 ml Output Total 1900 ml Balance -800 ml IV Total 1100 ml Output Urine Total 1900 ml # Bowel Movements 0 . Physical Exam CONSTITUTIONAL/GENERAL: This is an adequately nourished patient, intubated, on mechanical ventilation. Does not awaken to voice or exam. No apparent distress. TUBES/LINES/DRAINS: Trach , PEG tube; PIVs, BUE soft restraints, SCDs. SKIN: No rashes, or lesions. Ecchymoses on upper extremities. No wounds seen anteriorly. Skin temperature warm. HEAD: Horse shoe-shaped surgical incision to Right temporoparietal head EYES: Pupils equal and round and reactive. No scleral icterus. No injection or drainage. Fundi not examined. ENT: Tracheostomy in place -- no bleeding. Unable to evaluate hearing.Throat without visible erythema, exudates, masses, or lesions. NECK: Trachea midline. CARDIOVASCULAR: Tachycardic without murmurs, gallops, or rubs. No JVD. Peripheral pulses symmetric. RESPIRATORY/CHEST: Tachyneic. Symmetric, unlabored respirations. Expiratory wheeze. Scattered ronchi. GASTROINTESTINAL: Abdomen soft, non-tender, nondistended. No guarding. Bowel sounds present. PEG tube in place. GENITOURINARY: Without palpable bladder distension. MUSCULOSKELETAL: Extremities without clubbing, cyanosis, or edema. No mottling. NEUROLOGICAL: Does not awaken to voice/exam. Off sedation. Rare spontaneous movements of upper extremities. Does not follow commands. Withdraws to noxious stimulation with all 4 extremities. PSYCHIATRIC: Unable to assess due to level of responsiveness. . . Diagnostic Tests Laboratory Laboratory Tests Test 09/09/17 04:10 09/10/17 05:05 09/10/17 14:22 09/11/17 03:37 White Blood Count 6.2 TH/MM3 (4.0-11.0) 7.5 TH/MM3 (4.0-11.0) 6.9 TH/MM3 (4.0-11.0) Red Blood Count 3.12 MIL/MM3 (4.50-5.90) 2.57 MIL/MM3 (4.50-5.90) 2.56 MIL/MM3 (4.50-5.90) Hemoglobin 9.7 GM/DL (13.0-17.0) 8.2 GM/DL (13.0-17.0) 7.8 GM/DL (13.0-17.0) Hematocrit 29.5 % (39.0-51.0) 24.6 % (39.0-51.0) 24.2 % (39.0-51.0) Mean Corpuscular Volume 94.7 FL (80.0-100.0) 95.7 FL (80.0-100.0) 94.4 FL (80.0-100.0) Mean Corpuscular Hemoglobin 31.2 PG (27.0-34.0) 32.0 PG (27.0-34.0) 30.6 PG (27.0-34.0) Mean Corpuscular Hemoglobin Concent 33.0 % (32.0-36.0) 33.4 % (32.0-36.0) 32.4 % (32.0-36.0) Red Cell Distribution Width 15.3 % (11.6-17.2) 15.8 % (11.6-17.2) 15.8 % (11.6-17.2) Platelet Count 75 TH/MM3 (150-450) 98 TH/MM3 (150-450) 104 TH/MM3 (150-450) Mean Platelet Volume 7.5 FL (7.0-11.0) 7.9 FL (7.0-11.0) 8.3 FL (7.0-11.0) Blood Urea Nitrogen 48 MG/DL (7-18) 22 MG/DL (7-18) 19 MG/DL (7-18) 16 MG/DL (7-18) Creatinine 1.30 MG/DL (0.60-1.30) 0.78 MG/DL (0.60-1.30) 0.71 MG/DL (0.60-1.30) 0.63 MG/DL (0.60-1.30) Random Glucose 254 MG/DL (74-106) 158 MG/DL (74-106) 142 MG/DL (74-106) 114 MG/DL (74-106) Calcium Level 8.3 MG/DL (8.5-10.1) 8.5 MG/DL (8.5-10.1) 8.7 MG/DL (8.5-10.1) 8.5 MG/DL (8.5-10.1) Sodium Level 146 MEQ/L (136-145) 152 MEQ/L (136-145) 151 MEQ/L (136-145) 149 MEQ/L (136-145) Potassium Level 3.7 MEQ/L (3.5-5.1) 3.3 MEQ/L (3.5-5.1) 3.9 MEQ/L (3.5-5.1) 3.5 MEQ/L (3.5-5.1) Chloride Level 113 MEQ/L (98-107) 118 MEQ/L (98-107) 118 MEQ/L (98-107) 116 MEQ/L (98-107) Carbon Dioxide Level 24.9 MEQ/L (21.0-32.0) 27.6 MEQ/L (21.0-32.0) 27.5 MEQ/L (21.0-32.0) 27.5 MEQ/L (21.0-32.0) Anion Gap 8 MEQ/L (5-15) 6 MEQ/L (5-15) 6 MEQ/L (5-15) 6 MEQ/L (5-15) Estimat Glomerular Filtration Rate 55 ML/MIN (>89) 99 ML/MIN (>89) 110 ML/MIN (>89) 127 ML/MIN (>89) Neutrophils (%) (Auto) 94.7 % (16.0-70.0) 87.7 % (16.0-70.0) Lymphocytes (%) (Auto) 2.0 % (9.0-44.0) 3.7 % (9.0-44.0) Monocytes (%) (Auto) 0.8 % (0.0-8.0) 3.8 % (0.0-8.0) Eosinophils (%) (Auto) 2.1 % (0.0-4.0) 4.4 % (0.0-4.0) Basophils (%) (Auto) 0.4 % (0.0-2.0) 0.4 % (0.0-2.0) Neutrophils # (Auto) 7.1 TH/MM3 (1.8-7.7) 6.1 TH/MM3 (1.8-7.7) Lymphocytes # (Auto) 0.2 TH/MM3 (1.0-4.8) 0.3 TH/MM3 (1.0-4.8) Monocytes # (Auto) 0.1 TH/MM3 (0-0.9) 0.3 TH/MM3 (0-0.9) Eosinophils # (Auto) 0.2 TH/MM3 (0-0.4) 0.3 TH/MM3 (0-0.4) Basophils # (Auto) 0.0 TH/MM3 (0-0.2) 0.0 TH/MM3 (0-0.2) CBC Comment AUTO DIFF AUTO DIFF Differential Total Cells Counted 100 100 Neutrophils % (Manual) 39 % (16-70) 50 % (16-70) Band Neutrophils % 27 % (0-6) 22 % (0-6) Lymphocytes % 1 % (9-44) 4 % (9-44) Monocytes % 1 % (0-8) 5 % (0-8) Eosinophils % 1 % (0-4) 2 % (0-4) Neutrophils # (Manual) 7.3 TH/MM3 (1.8-7.7) 6.1 TH/MM3 (1.8-7.7) Metamyelocytes 31 % (0-1) 15 % (0-1) Differential Comment FINAL DIFF MANUAL FINAL DIFF MANUAL Toxic Vacuolation PRESENT (NONE SEEN) PRESENT (NONE SEEN) Dohle Bodies PRESENT (NONE SEEN) PRESENT (NONE SEEN) Platelet Estimate LOW (NORMAL) LOW (NORMAL) Platelet Morphology Comment NORMAL (NORMAL) NORMAL (NORMAL) Total Protein 6.8 GM/DL (6.4-8.2) 7.0 GM/DL (6.4-8.2) 6.8 GM/DL (6.4-8.2) Albumin 2.3 GM/DL (3.4-5.0) 2.3 GM/DL (3.4-5.0) 2.2 GM/DL (3.4-5.0) Alkaline Phosphatase 90 U/L (45-117) 91 U/L (45-117) 85 U/L (45-117) Aspartate Amino Transf (AST/SGOT) 27 U/L (15-37) 21 U/L (15-37) 18 U/L (15-37) Alanine Aminotransferase (ALT/SGPT) 39 U/L (12-78) 32 U/L (12-78) 25 U/L (12-78) Total Bilirubin 1.2 MG/DL (0.2-1.0) 1.1 MG/DL (0.2-1.0) 1.1 MG/DL (0.2-1.0) Magnesium Level 2.5 MG/DL (1.5-2.5) Myelocytes 2 % (0-0) Helmet Cells OCC (NORMAL) Phenytoin (Dilantin) Level 5.5 MCG/ML (10.0-20.0) . Result Diagram: 09/11/17 0337 09/11/17 0337 Microbiology Microbiology Date/Time Source Procedure Growth Status 09/10/17 16:54 Blood Peripheral Aerobic Blood Culture - Preliminary NO GROWTH IN 1 DAY Resulted 09/10/17 16:54 Blood Peripheral Anaerobic Blood Culture - Preliminary NO GROWTH IN 1 DAY Resulted 09/10/17 16:42 Blood Peripheral Aerobic Blood Culture - Preliminary NO GROWTH IN 1 DAY Resulted 09/10/17 16:42 Blood Peripheral Anaerobic Blood Culture - Preliminary NO GROWTH IN 1 DAY Resulted 09/08/17 12:25 Bronchial Washings Left Lower Lobe Fungal Smear - Final NO FUNGAL ELEMENTS SEEN. Resulted 09/08/17 12:25 Bronchial Washings Left Lower Lobe Fungal Culture Pending Resulted 09/08/17 12:25 Bronchial Washings Left Lower Lobe Acid Fast Stain - Final NO ACID FAST BACILLI SEEN Resulted 09/08/17 12:25 Bronchial Washings Left Lower Lobe Mycobacterial Culture Pending Resulted 09/08/17 12:25 Bronchial Washings Left Lower Lobe Gram Stain - Final Complete 09/08/17 12:25 Bronchial Culture - Final Staphylococcus Aureus Beta Strep Not Group A Complete 09/09/17 13:00 Urine Catheterized Urine Urine Culture - Final NO GROWTH IN 48 HOURS. Complete . Imaging Last Impressions Chest X-Ray 09/11/17 0600 Signed Impressions: Service Date/Time: September 03:53 - CONCLUSION: Mildly rotated study to the left with apparent improvement in pulmonary infiltrates. Residual remains in the left lung base as well as a small effusion. Damien García MD Head CT 09/08/17 0000 Signed Impressions: Service Date/Time: Friday, September 08, 2017 14:42 - CONCLUSION: 1. The left temporal lobe blood products have decreased in size and density since the prior study. There is persistent residual surrounding edema. 2. The right-sided drain has been removed and there is persistent low density extra-axial collection in the right parietal region and high density likely within the right frontal region stable from the prior study. There is no midline shift. Rakesh Miramontes MD . Procedures 08/30/2017-intubated and placed on mechanical ventilation 09/06/2017-medical extubated 09/08/2017-Reintubated 09/08/2017-Bronchoscopy 09/09/17 - Tracheostomy 09/10/17 - PEG placement . . . 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 (5) Acute encephalopathy (6) Thrombocytopenia (7) Probabe seizure (8) DEMENTIA IN OTH DISEASES CLASSD ELSWHR W BEHAVIORAL DISTURB (9) Hypertension (10) Hepatic cirrhosis (11) Diabetes (12) Chronic low back pain Symptom Scale: (1) Shortness of breath 0-10 Scale: Unable to quantify Comment: Hx of COPD. Now with pneumonia. s/p bronchoscopy 09/08/17. s/p tracheostomy 09/09/17. . (2) Pain 0-10 Scale: Unable to quantify Comment: Patient unable to locate, quantify, qualify pain. Had history of chronic back pain requiring Lortab 10 QID scheduled. Sources of pain currently might include head pain from recent subdural and surgery; prolonged bedbound status; orotracheal intubation; urinary catheter; venous access lines. Will need to watch carefully for non-verbal signs of pain. Currently, there are no opiate analgesic orders. . (3) Confusion 0-10 Scale: Unable to quantify Comment: Encephalopathy: Multifactorial. Multiple TBIs with recent acute on chronic subdural requiring craniectomy on 08/31/17. Hx of Wernicke-Korsakoff syndrome with behavioral issues. 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 Unclear at this time to what extent he will recover neurologic function and cognitive abilities. . (4) Debility 0-10 Scale: Unable to quantify Comment: Progressive. Multiple hospital visits, x5 visits since April. Recent hospitalization for TBI and was discharged to a SNF. . Pertinent Non-Medical Issues Psychosocial: Spiritual: No yazidi affiliation Legal: Patient has a HCS and Living Will Ethical issues impacting care: None identified at this time. . Important Contacts Friend- HCS- Jonathan Alonsoannine- [phone] Daughter- Alternate HCS-Aneta Cox . Prognosis Patient is a 66 years old male with a past medical history of Wernicke- Korsakoff syndrome, COPD, TBI with subdural hematoma, previous tibia with subarachnoid hemorrhage, suicidal ideation, alcohol abuse, and alcohol cirrhosis. Recent hospitalization was 08/07/17 after patient passed out in a bar and sustained a traumatic brain injury with a left temporal lobe hemorrhage and small right parietal subdural hemorrhage that were conservatively managed. Patient was found on the floor, foaming in his mouth, incontinent of urine and seizure like activity in Psych. CT head revealed acute on chronic subdural hemorrhage now 1.7 cm with mild midline shift. Patient underwent right craniotomy for evacuation of subdural hemorrhage. Clinical course complicated with poor mental status and respiratory failure requiring reintubation and placement on mechanical ventilation. Given ongoing comorbidities, patient remains at high risk for complications, deterioration and decline. . Code Status: Full Code Plan PLAN: Legal decision maker: Patient is s/p tracheostomy on mechanical ventilation, minimally responsive and unable to make his own medical decisions. Chances of regaining capacity to make his own decisions are growing bleak. Patient designated Cassandra Alonso who is currently making medical decisions for the patient and his daughter Aneta Cox as alternate HCS. The daughter is currently incarcerated in [facility]. Goals of medical treatment: Ms. Alonso feels she knows the patient very well. The patient decided to complete advance directives on his own when he was diagnosed with cirrhosis. She feels he is a fighter and has overcome multiple obstacles in the past and would continue to fight to try and get back to his prior functional status. On the other hand, he would not want to be maintained indefinitely on life support . She feels strongly at this time, that he would want aggressive care including tracheostomy/PEG which have now been done. If he continues to fail in spite of these efforts or it become clear that he can't recover to a level of functioning that would give him meaning and purpose, then she would agree to transition to "comfort measures only," and put him "in God's hands." CODE STATUS: Full Code- SYMPTOMS: * Shortness of breath: Hx of COPD. Pt was intubated on 08/30/17 and extubated . Patient desaturating and reintubated s/p bronchoscopy 09/08/17. Tracheostomy on 09/09/17. Patient is febrile and sputum is growing staph and strep. Dyspnea being addressed with antibiotic coverage and vent support. No further recommendations at this time. * Encephalopathy: Multifactorial. Multiple TBIs with recent acute on chronic subdural requiring craniectomy on 08/31/17. Hx of Wernicke-Korsakoff syndrome. Patient now febrile with probably pneuonia which may be compounding encephalopathy. 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 Unclear at this time to what extent he will recover neurologic function and cognitive abilities. Meaningful recovery appearing more and more unlikely the longer he remains unable to follow commands. * Pain: Patient unable to locate, quantify, qualify pain. Had history of chronic back pain requiring Lortab 10 QID scheduled. Sources of pain currently might include head pain from recent subdural and surgery; prolonged bedbound status; orotracheal intubation; urinary catheter; venous access lines. Will need to watch carefully for non-verbal signs of pain. Nursing pain scores have been "0." Currently, there are no opiate analgesic orders. == Spoke with neurosurgery. Have asked them to address prognosis and chances of meaningful recovery in their progress notes. == Disposition: Should he survive the hospitalization, he will likely require long-term facility placement and anticipate recurrent issues with infection. == Palliative care will continue to follow to assist with symptom management and to further clarify goals of medical treatment as the clinical course evolves. . . Attestation To help prompt me to consider important information that might be impacting today's encounter and assessment, information from prior notes written by myself or my colleagues may have been "brought forward" into today's note. My signature on this note, however, is an attestation that I personally performed the exam, history, and/or decision-making noted today, and, unless otherwise indicated, the interactions with patient, family, and staff as well as the review of records all occurred today. I also attest that the listed assessment and stated plan reflect my best clinical judgment today based on the combination of historical information, prior notes, and today's exam/ interactions. When time spent is documented, it refers only to time spent today by the signer, or if indicated, combined time spent today by collaborating physician/nurse practitioner. . Shemar Serrano MD Sep 11, 2017 12:07
--- NOTE | 2017-09-11 13:23 | HHI.CCPN ---
Subjective Remarks/Hospital Course Patient is a 66-year-old white male who was admitted to the psychiatric service under Blake act on 08/27/17. He has history of Wernicke-Korsakoff syndrome, TBI with subdural hematoma, previous TBI with subarachnoid hemorrhage, suicidal ideation, alcohol abuse, COPD and alcohol-induced cirrhosis. Patient was hospitalized here 08/07/17 through 08/23/17 after passing out at a bar and sustaining a traumatic brain injury. At that time he did have bilateral subdural hemorrhages and small bitemporal hemorrhages. Patient was managed conservatively (N/S Dr. Duque) and eventually was discharged to [facility]. Prior to this he was admitted in March 2017 for TBI and subarachnoid hemorrhage. Psych admitting diagnosis was dementia with behavioral disturbances and [facility]. Today 08/30/17 a Halicat was called after patient was found on the floor. Apparently patient was in his normal state today a.m.. Nursing staff responded to hearing a thud in his room, patient was found to be lying on the floor with foaming him from his mouth and incontinence to urine. Apparently nursing staff also noted some seizure-like activity. Patient was unresponsive and nonverbal, but eyes open. A stat CT of the head was done which showed increase in size of the acute on chronic subdural hemorrhage now 1.7 cm with mild midline shift. Patient was emergently transferred to the ICU and critical care medicine was consulted. I immediately evaluated the patient. His level of consciousness is improving but he is very agitated. I discussed with Dr. Gonzalez who also evaluated the patient. Because of increase in size of the bleed patient will need evacuation of the subdural hemorrhage. Transfuse 1 unit platelets to correct thrombocytopenia. Due to severe agitation and new increase in bleed patient will be intubated and placed on mechanical ventilation. Dr. Gonzalez has updated the power of document review attorney was agreeable to intubation and surgical evacuation of the subdural hemorrhage 08/31/17: Remains intubated sedated critically ill. Withdraws 4 extremities. Platelet count above 84 received transfusion today one pack units of platelets in anticipation of or. Dr. Gonzalez planning on evacuation of subdural hemorrhage 09/01/17: s/p Right craniotomy for subdural hemorrhage evacuation. CT of the head shows right subdural drain with improvement in the right subdural hemorrhage, small amount of residual hemorrhage and pneumocephalus. There is also enlargement of left temporal hematoma now measuring up to 6 cm, 3 mm of left-to- right midline shift. New 1.4 cm area of focal hemorrhage in the anterior inferior right temporal lobe. 09/02/17: No acute events overnight. On sedation hold opens eyes to painful stimuli withdraws all 4 extremities, localizes do not follow commands. Coags normal platelet count 95. 09/03: Unable to wean from ventilator. 09/04: Too tachypneic on CPAP trials. Unable to arouse. Probably will require trach. 09/05: Tolerating SBTs, will try to extubate but anticipate airway control problems. 09/06: passed SBT. still intermittently encephalopathic, but at times more awake. did not extubate yesterday due to cuff leak concerns. will attempt today. certainly high risk for re-intubation given persistently poor mental status. 09/07: extubated yesterday. mental status still poor, although protects airway. needs aggressive PT and pulmonary toilet. 09/08: Patient is up in a stretcher chair but unresponsive desaturating, Oxygen saturation is 87% on 10 L simple mask. Patient is unable to open eyes localizes to pain with left upper extremity with no eye-opening. He is not protecting airway, he is tachycardic in 120s. We'll place back on the bed and proceed with re intubation, and possible trach in the afternoon. I briefly spoke to the DANK Dumas, who requested reintubation. We'll consult palliative care to address goals of care 09/09: Remains encephalopathy off all sedation. Opens eyes to painful stimuli withdraws to pain left more than right localizes with left upper extremity. Dr. Serrano met with DANK, she wants to continue with aggressive care and proceed with tracheostomy. Will schedule for tracheotomy today, consult GI for PEG placement 09/10: Patient spiked fever up to 104, still has thick secretions. ID consult placed. Encephalopathic with fever, more somnolent today. Status post tracheostomy yesterday-tolerated well. PEG planned for today. Sputum culture growing staph aureus and beta strep 09/11: Continues to spike fever Tmax 102.4. Copious trach secretions yellow in color. Chest x-ray shows interval improvement in left lower lobe infiltrate. Remains encephalopathic. PEG placed yesterday Objective Vital Signs Date Time Temp Pulse Resp B/P (MAP) Pulse Ox O2 Delivery O2 Flow Rate FiO2 09/11/17 12:35 40 09/11/17 12:34 101.5 109 28 111/70 (84) 98 09/09/17 16:50 T-piece 09/08/17 07:00 10.00 Intake and Output 09/11/17 09/11/17 09/12/17 08:00 16:00 00:00 Intake Total 1100 ml Output Total 1900 ml Balance -800 ml Result Diagram: 09/11/17 0337 09/11/17 0337 Other Results Microbiology Date/Time Source Procedure Growth Status 09/09/17 13:00 Urine Catheterized Urine Urine Culture - Final NO GROWTH IN [address] scan shows 1.7 cm right acute on chronic subdural hemorrhage with mild midline shift and pressure effect on right lateral ventricle Objective Remarks GENERAL: 66-year-old male lying in bed unresponsive, s/p trach SKIN: Warm/dry. HEAD: Normocephalic. EYES: Pupils equal and round. No scleral icterus. No injection or drainage. ENT: No nasal bleeding or discharge. NECK: Trachea midline. Trach site clean without significant bleeding. Moderate hahn secretions CARDIOVASCULAR: Regular rate and rhythm. RESPIRATORY: Patient is intubated and entry is equal bilaterally. Coarse crackles lower lung dunbar. Diffuse rhonchi bilaterally GASTROINTESTINAL: Abdomen soft. Nontender. Nondistended. MUSCULOSKELETAL: No obvious deformities. NEUROLOGICAL: Opens eyes to painful stimuli, but more lethargic. Localizes with left upper extremity. Withdraws to pain on all other extremities Urinary Catheter: Yes Assessment to: Continue Vascular Central Line Catheter: Yes Assessment to: Continue A/P Assessment and Plan ASSESSMENT/PLAN : 66yM s/p acute on chronic SDH with persistent encephalopathy and respiratory failure, protecting airway and extubated. However, given poor mental status, high risk for re-intubation and tracheostomy. will work with aggressive pulmonary toilet and PT. 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 Neurosurgery Dr. Gonzalez - F/U CT head 09/01 shows expansion L parenchymal hemorrhage, but good evacuation R SDH - IV Thiamine. Ativan for seizures. EEG shows encephalopathy and no seizure - On Dilantin 100 mg every 8 hours - Phenytoin level subtherapeutic. no evidence of active seizures. - Provigil for wakefulness - Psych reconsult when mental status improves. currently could not participate in psych eval. Cardiovascular: Hypertension- controlled. - Labetalol when necessary to keep SBP less than 150 mmHg, currently well controlled Pulmonary: Acute hypoxic and hypercarbic respiratory failure COPD without exacerbation LLL collapse from mucous plugging Left lower lobe pneumonia - Intubated 08/30 due to severe agitation and for airway protection. extubated 09/06. - Reintubated for acute hypoxemia and airway protection on 09/08/17. s/p trach - CPAP daily attempt T piece - Vent bundle, HOB at 30 degree - DuoNeb every 6 hours when necessary - Zosyn, vanc to cover for aspiration - Status post bronchoscopy 09/08/17 - Patient is a 4 pack smoker, start IV steroids for probable COPD exacerbation GI/liver: History of hepatitis C and liver cirrhosis - Start PEG Tube feeds with Jevity, PO famotidine. - Bowel regimen - GI consulted for PEG tube placement ID: LLL pneumonia High fever sepsis - Zosyn and vancomycin for HCAP, aspiration in healthcare setting - f/u blood urine and sputum culture - Infectious disease consulted for persistent fever Endocrine: - Sliding scale insulin for glycemic control if needed Heme: Thrombocytopenia - Follow CBC and coags. Transfuse blood products and vitamin K as needed - Transfuse 2 U platelets and 1U FFP in anticipation of tracheostomy Prophylaxis: - Pepcid/SCDs. No subcutaneous heparin due to subdural hemorrhage, thrombocytopenia and anticipated procedures Discussed with Dr. Gonzalez. Discussed with Dr. Jane Patient is critically ill with acute hypoxemic respiratory failure worsening encephalopathy and now with worsening fever and sepsis from pneumonia. s/p trach 09/09 CCT 35 MIN excluding procedures Daria Cameron MD Sep 11, 2017 13:23
--- NOTE | 2017-09-11 13:46 | HHI.GIFU ---
Subjective Remarks Pt remains intubated and off sedation. He does respond to painful stimuli. Scant, dried blood around PEG tube site, no erythema or drainage. (Candice Padilla) Objective Vitals I&O Vital Signs Date Time Temp Pulse Resp B/P (MAP) Pulse Ox O2 Delivery O2 Flow Rate FiO2 09/11/17 12:35 40 09/11/17 12:34 101.5 109 28 111/70 (84) 98 09/11/17 12:33 110 09/11/17 11:22 96 40 09/11/17 10:32 107 09/11/17 08:00 109 09/11/17 08:00 100.6 109 28 100/60 (73) 98 09/11/17 08:00 40 09/11/17 07:48 96 40 09/11/17 06:00 106 09/11/17 04:45 99 40 09/11/17 04:00 40 09/11/17 04:00 111 09/11/17 04:00 102.4 111 31 118/69 (85) 98 09/11/17 02:00 110 09/11/17 01:45 98 40 09/11/17 00:00 40 09/11/17 00:00 100.4 102 25 108/65 (79) 97 09/11/17 00:00 102 09/10/17 23:30 93 40 09/10/17 22:30 98 40 09/10/17 22:00 106 09/10/17 20:05 97 40 09/10/17 20:00 40 09/10/17 20:00 96 09/10/17 20:00 101.7 103 32 103/62 (76) 98 09/10/17 18:00 100 09/10/17 16:00 100.2 103 20 99/59 (72) 99 09/10/17 16:00 103 09/10/17 16:00 40 09/10/17 15:32 100 40 09/10/17 14:00 108 I/O 09/10/17 09/10/17 09/10/17 09/11/17 09/11/17 09/11/17 07:00 15:00 23:00 07:00 15:00 23:00 Intake Total 2847 ml 200 ml 712.7 ml 1100 ml Output Total 1600 ml 1250 ml 1900 ml Balance 1247 ml 200 ml -537.3 ml -800 ml IV Total 2347 ml 200 ml 462.7 ml 1100 ml Tube Feeding 300 ml Other 200 ml 250 ml Output Urine Total 1600 ml 1250 ml 1900 ml # Bowel Movements 0 0 0 Laboratory Laboratory Tests Test 09/10/17 14:22 09/11/17 03:37 Blood Urea Nitrogen 19 16 Creatinine 0.71 0.63 Random Glucose 142 114 Total Protein 7.0 6.8 Albumin 2.3 2.2 Calcium Level 8.7 8.5 Magnesium Level 2.5 Alkaline Phosphatase 91 85 Aspartate Amino Transf (AST/SGOT) 21 18 Alanine Aminotransferase (ALT/SGPT) 32 25 Total Bilirubin 1.1 1.1 Sodium Level 151 149 Potassium Level 3.9 3.5 Chloride Level 118 116 Carbon Dioxide Level 27.5 27.5 Anion Gap 6 6 Estimat Glomerular Filtration Rate 110 127 White Blood Count 6.9 Red Blood Count 2.56 Hemoglobin 7.8 Hematocrit 24.2 Mean Corpuscular Volume 94.4 Mean Corpuscular Hemoglobin 30.6 Mean Corpuscular Hemoglobin Concent 32.4 Red Cell Distribution Width 15.8 Platelet Count 104 Mean Platelet Volume 8.3 Neutrophils (%) (Auto) 87.7 Lymphocytes (%) (Auto) 3.7 Monocytes (%) (Auto) 3.8 Eosinophils (%) (Auto) 4.4 Basophils (%) (Auto) 0.4 Neutrophils # (Auto) 6.1 Lymphocytes # (Auto) 0.3 Monocytes # (Auto) 0.3 Eosinophils # (Auto) 0.3 Basophils # (Auto) 0.0 CBC Comment AUTO DIFF Differential Total Cells Counted 100 Neutrophils % (Manual) 50 Band Neutrophils % 22 Lymphocytes % 4 Monocytes % 5 Eosinophils % 2 Neutrophils # (Manual) 6.1 Metamyelocytes 15 Myelocytes 2 Differential Comment FINAL DIFF MANUAL Toxic Vacuolation PRESENT Dohle Bodies PRESENT Platelet Estimate LOW Platelet Morphology Comment NORMAL Helmet Cells OCC Phenytoin (Dilantin) Level 5.5 Date/Time Source Procedure Growth Status 09/10/17 16:54 Blood Peripheral Aerobic Blood Culture - Preliminary NO GROWTH IN 1 DAY Resulted 09/10/17 16:54 Blood Peripheral Anaerobic Blood Culture - Preliminary NO GROWTH IN 1 DAY Resulted 09/08/17 12:25 Bronchial Washings Left Lower Lobe Fungal Smear - Final NO FUNGAL ELEMENTS SEEN. Resulted 09/08/17 12:25 Bronchial Washings Left Lower Lobe Fungal Culture Pending Resulted 09/09/17 13:00 Urine Catheterized Urine Urine Culture - Final NO GROWTH IN 48 HOURS. Complete Imaging Last Impressions Chest X-Ray 09/11/17 0600 Signed Impressions: Service Date/Time: September 03:53 - CONCLUSION: Mildly rotated study to the left with apparent improvement in pulmonary infiltrates. Residual remains in the left lung base as well as a small effusion. Damien García MD Head CT 09/08/17 0000 Signed Impressions: Service Date/Time: Friday, September 08, 2017 14:42 - CONCLUSION: 1. The left temporal lobe blood products have decreased in size and density since the prior study. There is persistent residual surrounding edema. 2. The right-sided drain has been removed and there is persistent low density extra-axial collection in the right parietal region and high density likely within the right frontal region stable from the prior study. There is no midline shift. Rakesh Miramontes MD Physical Exam HEENT: Normocephalic; atraumatic CHEST: Diminished CARDIAC: RRR. ABDOMEN: Soft, obese, bowel sounds active x 4. EXTREMITIES: (+) edema SKIN: Normal; no rash; no jaundice. CRIB TENDER: No focal deficits; alert and oriented times three. (Candice Padilla) Assessment and Plan Plan Assessment - Acute on chronic right subdural hemorrhage EGD with PEG placement (09/10) --> Moderate gastritis in the body of the stomach. Recommend Glucerna 1.5 with goal rate 80mL/hr for 18 hours. Hold one hour before and after Dilantin q 8 hrs. Flush PEG every 6 hours and after each PEG feeding. May use Ensure or Boost etc. Plan - Glucerna 1.5 with goal rate at 80 mL/hr for 18 hours - Hold one hour before and after Dilantin every 8 hours - Flush PEG every 6 hours - PPI - Supportive care - GI will sign off please reconsult as needed Pt seen and examined by myself and Dr. 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 Flush peg with water Q shift. TF as tolerated. Will sign off, thankyou (Popeye Vargas MD) Candice Padilla Sep 11, 2017 13:46 Popeye Vargas MD Sep 11, 2017 15:48
[2017-09-11] MEDS: methylPREDNISolone SOD SUCC 125 MG/2 ML VIAL IV PUSH SCH ×2 (14:10→21:53)
[2017-09-11] MEDS ORDERED: PHARMACY ORDERED LAB ONE (14:45)
--- NOTE | 2017-09-11 15:24 | HHI.PR ---
Addendum to Inpatient Note Additional Information pt was seen today around 11am - full note to follow Jessica Jane MD Sep 11, 2017 15:24
--- NOTE | 2017-09-11 18:34 | HHI.IDPN ---
Subjective Subjective Remarks delayed entry pt was seen earlier today having fevers 102.5 F Marked bandemia 22%-27% 'Blood clx are negative @ 1 day Antibiotics zosyn vanco Allergies: Coded Allergies: Sulfa (Sulfonamide Antibiotics) (Unverified Allergy, Severe, UNKNOWN - CHILD, 08/07/17) Objective . Vital Signs Date Time Temp Pulse Resp B/P (MAP) Pulse Ox O2 Delivery O2 Flow Rate FiO2 09/11/17 16:00 94 09/11/17 16:00 40 09/11/17 16:00 99.5 99 28 98/66 (77) 98 09/11/17 15:22 100 40 09/11/17 14:22 102 09/11/17 13:00 40 09/11/17 12:35 40 09/11/17 12:34 101.5 109 28 111/70 (84) 98 09/11/17 12:33 110 09/11/17 11:22 96 40 09/11/17 10:32 107 09/11/17 08:00 109 09/11/17 08:00 100.6 109 28 100/60 (73) 98 09/11/17 08:00 40 09/11/17 07:48 96 40 09/11/17 06:00 106 09/11/17 04:45 99 40 09/11/17 04:00 40 09/11/17 04:00 111 09/11/17 04:00 102.4 111 31 118/69 (85) 98 09/11/17 02:00 110 09/11/17 01:45 98 40 09/11/17 00:00 40 09/11/17 00:00 100.4 102 25 108/65 (79) 97 09/11/17 00:00 102 09/10/17 23:30 93 40 09/10/17 22:30 98 40 09/10/17 22:00 106 09/10/17 20:05 97 40 09/10/17 20:00 40 09/10/17 20:00 96 09/10/17 20:00 101.7 103 32 103/62 (76) 98 . Laboratory Tests Test 09/10/17 05:05 09/11/17 03:37 White Blood Count 7.5 TH/MM3 6.9 TH/MM3 Red Blood Count 2.57 MIL/MM3 2.56 MIL/MM3 Hemoglobin 8.2 GM/DL 7.8 GM/DL Hematocrit 24.6 % 24.2 % Mean Corpuscular Volume 95.7 FL 94.4 FL Mean Corpuscular Hemoglobin 32.0 PG 30.6 PG Mean Corpuscular Hemoglobin Concent 33.4 % 32.4 % Red Cell Distribution Width 15.8 % 15.8 % Platelet Count 98 TH/MM3 104 TH/MM3 Mean Platelet Volume 7.9 FL 8.3 FL Neutrophils (%) (Auto) 94.7 % 87.7 % Lymphocytes (%) (Auto) 2.0 % 3.7 % Monocytes (%) (Auto) 0.8 % 3.8 % Eosinophils (%) (Auto) 2.1 % 4.4 % Basophils (%) (Auto) 0.4 % 0.4 % Neutrophils # (Auto) 7.1 TH/MM3 6.1 TH/MM3 Lymphocytes # (Auto) 0.2 TH/MM3 0.3 TH/MM3 Monocytes # (Auto) 0.1 TH/MM3 0.3 TH/MM3 Eosinophils # (Auto) 0.2 TH/MM3 0.3 TH/MM3 Basophils # (Auto) 0.0 TH/MM3 0.0 TH/MM3 CBC Comment AUTO DIFF AUTO DIFF Differential Total Cells Counted 100 100 Neutrophils % (Manual) 39 % 50 % Band Neutrophils % 27 % 22 % Lymphocytes % 1 % 4 % Monocytes % 1 % 5 % Eosinophils % 1 % 2 % Neutrophils # (Manual) 7.3 TH/MM3 6.1 TH/MM3 Metamyelocytes 31 % 15 % Differential Comment FINAL DIFF MANUAL FINAL DIFF MANUAL Toxic Vacuolation PRESENT PRESENT Dohle Bodies PRESENT PRESENT Platelet Estimate LOW LOW Platelet Morphology Comment NORMAL NORMAL Myelocytes 2 % Helmet Cells OCC Laboratory Tests Test 09/10/17 05:05 09/10/17 14:22 09/11/17 03:37 Blood Urea Nitrogen 22 MG/DL 19 MG/DL 16 MG/DL Creatinine 0.78 MG/DL 0.71 MG/DL 0.63 MG/DL Random Glucose 158 MG/DL 142 MG/DL 114 MG/DL Total Protein 6.8 GM/DL 7.0 GM/DL 6.8 GM/DL Albumin 2.3 GM/DL 2.3 GM/DL 2.2 GM/DL Calcium Level 8.5 MG/DL 8.7 MG/DL 8.5 MG/DL Alkaline Phosphatase 90 U/L 91 U/L 85 U/L Aspartate Amino Transf (AST/SGOT) 27 U/L 21 U/L 18 U/L Alanine Aminotransferase (ALT/SGPT) 39 U/L 32 U/L 25 U/L Total Bilirubin 1.2 MG/DL 1.1 MG/DL 1.1 MG/DL Sodium Level 152 MEQ/L 151 MEQ/L 149 MEQ/L Potassium Level 3.3 MEQ/L 3.9 MEQ/L 3.5 MEQ/L Chloride Level 118 MEQ/L 118 MEQ/L 116 MEQ/L Carbon Dioxide Level 27.6 MEQ/L 27.5 MEQ/L 27.5 MEQ/L Anion Gap 6 MEQ/L 6 MEQ/L 6 MEQ/L Estimat Glomerular Filtration Rate 99 ML/MIN 110 ML/MIN 127 ML/MIN Magnesium Level 2.5 MG/DL Microbiology Date/Time Source Procedure Growth Status 09/10/17 16:54 Blood Peripheral Aerobic Blood Culture - Preliminary NO GROWTH IN 1 DAY Resulted 09/10/17 16:54 Blood Peripheral Anaerobic Blood Culture - Preliminary NO GROWTH IN 1 DAY Resulted 09/10/17 16:42 Blood Peripheral Aerobic Blood Culture - Preliminary NO GROWTH IN 1 DAY Resulted 09/10/17 16:42 Blood Peripheral Anaerobic Blood Culture - Preliminary NO GROWTH IN 1 DAY Resulted 09/09/17 13:00 Urine Catheterized Urine Urine Culture - Final NO GROWTH IN 48 HOURS. Complete Imaging Last Impressions Chest X-Ray 09/11/17 0600 Signed Impressions: Service Date/Time: September 03:53 - CONCLUSION: Mildly rotated study to the left with apparent improvement in pulmonary infiltrates. Residual remains in the left lung base as well as a small effusion. Damien García MD Head CT 09/08/17 0000 Signed Impressions: Service Date/Time: Friday, September 08, 2017 14:42 - CONCLUSION: 1. The left temporal lobe blood products have decreased in size and density since the prior study. There is persistent residual surrounding edema. 2. The right-sided drain has been removed and there is persistent low density extra-axial collection in the right parietal region and high density likely within the right frontal region stable from the prior study. There is no midline shift. Rakesh Miramontes MD Physical Exam CONSTITUTIONAL/GENERAL: This is an adequately nourished patient, in no apparent distress.\Sedated intubated on [facility] TUBES/LINES/DRAINS: SKIN: No jaundice, rashes, or lesions. Skin temperature appropriate. Not diaphoretic. HEAD: R parietal incision healing nicely EYES: Pupils equal and round and reactive. Extraocular motions intact. No scleral icterus. No injection or drainage. Fundi not examined. ENT: Hearing not tested. Nose without bleeding or purulent drainage. Throat without visible erythema, exudates, masses, or lesions. CARDIOVASCULAR: Regular rate and rhythm without murmurs, gallops, or rubs. No JVD. Peripheral pulses symmetric. RESPIRATORY/CHEST: Symmetric, unlabored respirations. Clear to auscultation. Breath sounds equal bilaterally. No wheezes, rales, or rhonchi. GASTROINTESTINAL: Abdomen soft, non-tender, nondistended. No hepato-splenomegaly , or palpable masses. No guarding. Bowel sounds present. GENITOURINARY: Without palpable bladder distension. Mendoza catheter in place with clear yellow urine MUSCULOSKELETAL: Extremities without clubbing, cyanosis, or edema. No joint tenderness or effusion noted. No calf tenderness. No mottling or clubbing. NEUROLOGICAL: sedated, not following commands, but moves spontaneously all 4 extremeties PSYCHIATRIC: unable to assess Assessment & Plan Remarks acute and chronic post-traumatic subdural hemorrhage Acute VDRF Fever, bandemia PNA, MSSA streptococcus - - radiological improvement ETOH encephalopathy cont broad spectrum abx fu P blood clx Jessica Jane MD Sep 11, 2017 18:34
[2017-09-12] VITALS (18 sets, daily range): BP systolic 81–130; BP diastolic 54–96; PULSE 71–97; RESP 20–23; TEMP 98.4–98.8; O2SAT 92–99
[2017-09-12] MEDS: 1/2 NS + KCL 20 MEQ INJ 1,000 ML IV SCH (03:02)
[2017-09-12] MEDS: VANCOMYCIN INJ 1,500 MG in SODIUM CHLORID 0.9% 500 ML INJ 500 ML IV SCH ×2 (03:07→15:22)
[2017-09-12] MEDS: RESP: ALBUTEROL 2.5 MG/IPRATROPIUM 0.5 MG NEB (SCH) INH ×4 (03:22→11:27)
[2017-09-12] MEDS: CHLORHEXIDINE GLUCONATE 2 % 1 PACK (2 CLOTHS) TOP SCH (04:00)
[2017-09-12] MEDS: PIPERACIL-TAZO 4.5 GM PREMIX 100 ML IV SCH ×3 (04:59→15:22)
[2017-09-12] MEDS: methylPREDNISolone SOD SUCC 125 MG/2 ML VIAL IV PUSH SCH ×2 (05:50→14:25)
[2017-09-12] MEDS: PHENYTOIN SUSP 100 MG/4 ML CUP PO SCH ×2 (05:50→14:26)
[2017-09-12 05:52] LABS: MEAN CELL VOLUME 95.2 FL (80.0-100.0); MEAN CORPUSCULAR HGB CONC 32.6 % (32.0-36.0); PLATELET COUNT 102 TH/MM3 (150-450); RED BLOOD COUNT 2.41 MIL/MM3 (4.50-5.90); REVIEW FLAG FINAL; WHITE BLOOD COUNT 2.9 TH/MM3 (4.0-11.0)
[2017-09-12 06:09] LABS: BICARBONATE 27.1 MEQ/L (21.0-32.0)
[2017-09-12] MEDS: CHLORHEXIDINE 0.12% (ORAL KIT) 15 ML CUP MT SCH (08:55)
[2017-09-12] MEDS: SODIUM CHLORIDE 1 GRAM TAB PO SCH ×2 (09:00→14:26)
[2017-09-12] MEDS: PANTOPRAZOLE SOD 40 MG DELAYED RELEASE TAB PO SCH (09:00)
[2017-09-12] MEDS: DOCUSATE SODIUM 50 MG/SENNA 8.6 MG TAB PO SCH (09:00)
[2017-09-12] MEDS: BISACODYL 10 MG SUPP RECTAL SCH (09:00)
[2017-09-12] MEDS: SODIUM CHLORIDE 0.9% FLUSH 10 ML FLUSH IV FLUSH SCH (09:01)
[2017-09-12] MEDS: MODAFINIL 200 MG TAB PO SCH (09:01)
[2017-09-12] MEDS: THIAMINE INJ 100 MG in SODIUM CHLORIDE 0.9% INJ 100 ML IV SCH (09:01)
[2017-09-12] MEDS ORDERED: PANTOPRAZOLE SOD 40 MG DELAYED RELEASE TAB PO SCH (10:00)
--- NOTE | 2017-09-12 10:42 | HHI.PYPN ---
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 Patient was hospitalized here 08/07/17 through 08/23/17 after passing out at a bar and sustaining a traumatic brain injury. At that time he did have bilateral subdural hemorrhages and small bitemporal hemorrhages. Patient was managed conservatively (N/S Dr. Duque) and eventually was discharged to [facility]. Prior to this he was admitted in March 2017 for TBI and subarachnoid hemorrhage. Remains encephalopathic. PEG placed yesterday. On psychiatric evaluation today patient is nonverbal, with a tracheostomy in place, unable to provide any significant information for psychiatric follow-up. No agitation or aggressive behavior observed or reported. Mental Status Examination Mental Status Exam Remarks Limited due to lack of cooperation and patient current mental status. Results Labs Test 09/11/17 15:10 09/12/17 05:20 Vancomycin Level Trough 9.4 MCG/ML White Blood Count 2.9 TH/MM3 Red Blood Count 2.41 MIL/MM3 Hemoglobin 7.5 GM/DL Hematocrit 23.0 % Mean Corpuscular Volume 95.2 FL Mean Corpuscular Hemoglobin 31.0 PG Mean Corpuscular Hemoglobin Concent 32.6 % Red Cell Distribution Width 16.0 % Platelet Count 102 TH/MM3 Mean Platelet Volume 8.4 FL Blood Urea Nitrogen 26 MG/DL Creatinine 0.68 MG/DL Random Glucose 272 MG/DL Calcium Level 8.2 MG/DL Sodium Level 144 MEQ/L Potassium Level 4.0 MEQ/L Chloride Level 111 MEQ/L Carbon Dioxide Level 27.1 MEQ/L Anion Gap 6 MEQ/L Estimat Glomerular Filtration Rate 116 ML/MIN Date/Time Source Procedure Growth Status 09/10/17 16:54 Blood Peripheral Aerobic Blood Culture - Preliminary NO GROWTH IN 1 DAY Resulted 09/10/17 16:54 Blood Peripheral Anaerobic Blood Culture - Preliminary NO GROWTH IN 1 DAY Resulted 09/08/17 12:25 Bronchial Washings Left Lower Lobe Fungal Smear - Final NO FUNGAL ELEMENTS SEEN. Resulted 09/08/17 12:25 Bronchial Washings Left Lower Lobe Fungal Culture Pending Resulted 09/09/17 13:00 Urine Catheterized Urine Urine Culture - Final NO GROWTH IN 48 HOURS. Complete Vitals/IOs Vital Signs Date Time Temp Pulse Resp B/P (MAP) Pulse Ox O2 Delivery O2 Flow Rate FiO2 09/12/17 10:00 73 09/12/17 09:30 40 09/12/17 08:00 98.6 20 127/96 (106) 97 09/09/17 16:50 T-piece 09/08/17 07:00 10.00 Intake and Output 09/12/17 09/12/17 09/13/17 08:00 16:00 00:00 Intake Total 2637 ml Output Total 1300 ml Balance 1337 ml Assessment & Plan Problem List: (1) DEMENTIA IN OTH DISEASES CLASSD ELSWHR W BEHAVIORAL DISTURB ICD Codes: F02.81 - DEMENTIA IN OTH DISEASES CLASSD ELSWHR W BEHAVIORAL DISTURB Assessment & Plan: At this moment this patient does not require immediate psychiatric intervention. At this moment the most important is to continue the medical care. There is no agitation or aggressive behavior to treat this moment. Will leave the Blake act to continue medical care. Assessment & Plan Estimated LOS: days Justification for Cont. Inpt. Patient does not meet criteria for involuntary psychiatric admission at this moment. Jose Luis Fortune MD Sep 12, 2017 10:42
--- NOTE | 2017-09-12 14:18 | HHI.CCPN ---
Subjective Remarks/Hospital Course Patient is a 66-year-old white male who was admitted to the psychiatric service under Blake act on 08/27/17. He has history of Wernicke-Korsakoff syndrome, TBI with subdural hematoma, previous TBI with subarachnoid hemorrhage, suicidal ideation, alcohol abuse, COPD and alcohol-induced cirrhosis. Patient was hospitalized here 08/07/17 through 08/23/17 after passing out at a bar and sustaining a traumatic brain injury. At that time he did have bilateral subdural hemorrhages and small bitemporal hemorrhages. Patient was managed conservatively (N/S Dr. Duque) and eventually was discharged to [facility]. Prior to this he was admitted in March 2017 for TBI and subarachnoid hemorrhage. Psych admitting diagnosis was dementia with behavioral disturbances and aggressive behavior towards staff at assisted. Today 08/30/17 a Halicat was called after patient was found on the floor. Apparently patient was in his normal state today a.m.. Nursing staff responded to hearing a thud in his room, patient was found to be lying on the floor with foaming him from his mouth and incontinence to urine. Apparently nursing staff also noted some seizure-like activity. Patient was unresponsive and nonverbal, but eyes open. A stat CT of the head was done which showed increase in size of the acute on chronic subdural hemorrhage now 1.7 cm with mild midline shift. Patient was emergently transferred to the ICU and critical care medicine was consulted. I immediately evaluated the patient. His level of consciousness is improving but he is very agitated. I discussed with Dr. Gonzalez who also evaluated the patient. Because of increase in size of the bleed patient will need evacuation of the subdural hemorrhage. Transfuse 1 unit platelets to correct thrombocytopenia. Due to severe agitation and new increase in bleed patient will be intubated and placed on mechanical ventilation. Dr. Gonzalez has updated the power of attorney law clerk was agreeable to intubation and surgical evacuation of the subdural hemorrhage 08/31/17: Remains intubated sedated critically ill. Withdraws 4 extremities. Platelet count above 84 received transfusion today one pack units of platelets in anticipation of or. Dr. Gonzalez planning on evacuation of subdural hemorrhage 09/01/17: s/p Right craniotomy for subdural hemorrhage evacuation. CT of the head shows right subdural drain with improvement in the right subdural hemorrhage, small amount of residual hemorrhage and pneumocephalus. There is also enlargement of left temporal hematoma now measuring up to 6 cm, 3 mm of left-to- right midline shift. New 1.4 cm area of focal hemorrhage in the anterior inferior right temporal lobe. 09/02/17: No acute events overnight. On sedation hold opens eyes to painful stimuli withdraws all 4 extremities, localizes do not follow commands. Coags normal platelet count 95. 09/03: Unable to wean from ventilator. 09/04: Too tachypneic on CPAP trials. Unable to arouse. Probably will require trach. 09/05: Tolerating SBTs, will try to extubate but anticipate airway control problems. 09/06: passed SBT. still intermittently encephalopathic, but at times more awake. did not extubate yesterday due to cuff leak concerns. will attempt today. certainly high risk for re-intubation given persistently poor mental status. 09/07: extubated yesterday. mental status still poor, although protects airway. needs aggressive PT and pulmonary toilet. 09/08: Patient is up in a stretcher chair but unresponsive desaturating, Oxygen saturation is 87% on 10 L simple mask. Patient is unable to open eyes localizes to pain with left upper extremity with no eye-opening. He is not protecting airway, he is tachycardic in 120s. We'll place back on the bed and proceed with re intubation, and possible trach in the afternoon. I briefly spoke to the DANK Dumas, who requested reintubation. We'll consult palliative care to address goals of care 09/09: Remains encephalopathy off all sedation. Opens eyes to painful stimuli withdraws to pain left more than right localizes with left upper extremity. Dr. Serrano met with DANK, she wants to continue with aggressive care and proceed with tracheostomy. Will schedule for tracheotomy today, consult GI for PEG placement 09/10: Patient spiked fever up to 104, still has thick secretions. ID consult placed. Encephalopathic with fever, more somnolent today. Status post tracheostomy yesterday-tolerated well. PEG planned for today. Sputum culture growing staph aureus and beta strep 09/11: Continues to spike fever Tmax 102.4. Copious trach secretions yellow in color. Chest x-ray shows interval improvement in left lower lobe infiltrate. Remains encephalopathic. PEG placed yesterday 09/12: No acute events overnight remains on vent support. Fever trending down hemoglobin is 7.5, transfuse 1 unit of PRBC. Hemoglobin most likely from gastritis, and have changed GI prophylaxis to Protonix 40 mg twice a day. Cleared by psych for discharge to [facility]. We'll transfer pending insurance authorization. Eyes are open and appears to be tracking Objective Vital Signs Date Time Temp Pulse Resp B/P (MAP) Pulse Ox O2 Delivery O2 Flow Rate FiO2 09/12/17 12:34 98.8 94 23 95/56 92 09/12/17 12:27 40 09/09/17 16:50 T-piece 09/08/17 07:00 10.00 Intake and Output 09/12/17 09/12/17 09/13/17 08:00 16:00 00:00 Intake Total 2637 ml 300 ml Output Total 1300 ml Balance 1337 ml 300 ml Result Diagram: 09/12/17 0509/12/[address] scan shows 1.7 cm right acute on chronic subdural hemorrhage with mild midline shift and pressure effect on right lateral ventricle Objective Remarks GENERAL: 66-year-old male lying in bed SKIN: Warm/dry. HEAD: Normocephalic. EYES: Pupils equal and round. No scleral icterus. No injection or drainage. ENT: No nasal bleeding or discharge. NECK: Trachea midline. Trach site clean without significant bleeding. Moderate hahn secretions CARDIOVASCULAR: Regular rate and rhythm. RESPIRATORY: Patient is intubated and entry is equal bilaterally. Coarse crackles lower lung dunbar. Few rhonchi bilaterally, crackles L base GASTROINTESTINAL: Abdomen soft. Nontender. Nondistended. MUSCULOSKELETAL: No obvious deformities. NEUROLOGICAL: Opens eyes tracks. Moving all 4 extremities spontaneously today. More purposefully with left upper extremity A/P Assessment and Plan ASSESSMENT/PLAN : 66yM s/p acute on chronic SDH with persistent encephalopathy and respiratory failure, extubated. Failed extubation required reintubation and tracheostomy. Encephalopathy and respiratory failure persist which will require prolonged ventilator weaning Neuro: Acute on chronic right subdural hemorrhage 1.7 cm with 4 mm midline shift Stable, evolving left intraparenchymal hemorrhage Acute encephalopathy, mostly metabolic at this time Alcohol dependence Dementia with behavioral disturbances - Encephalopathy, most likely now secondary to sepsis and fever. Improving with down trending fever - CT of the head stat after intubation 12/4 shows improving left temporal intraparenchymal hemorrhage, and improved subdural hemorrhage - s/p Evacuation of subdural hemorrhage 08/31. Neurosurgery Dr. Gonzalez - F/U CT head 09/01 shows expansion L parenchymal hemorrhage, but good evacuation R SDH - IV Thiamine. Ativan for seizures. EEG shows encephalopathy and no seizure - On Dilantin 100 mg every 8 hours. Phenytoin level subtherapeutic 5.5 on . no evidence of active seizures. - Provigil for wakefulness - Psych reconsulted- Not Blake acted any more. Cleared for DC to [facility] when approved Cardiovascular: Hypertension- controlled. - Labetalol when necessary to keep SBP less than 150 mmHg, currently well controlled Pulmonary: Acute hypoxic and hypercarbic respiratory failure s/p trach 09/09/17 COPD without exacerbation LLL collapse from mucous plugging Left lower lobe pneumonia - Intubated 08/30 due to severe agitation and for airway protection. extubated 09/06. - Reintubated for acute hypoxemia and airway protection on 09/08/17. s/p trach - CPAP daily attempt T piece, need [facility] vent wean due to prolonged apnea on attempted CPAP - Vent bundle, HOB at 30 degree - DuoNeb every 6 hours when necessary - Zosyn, vanc to cover for aspiration-DC Vanc today if ok with Dr. Jane - Status post bronchoscopy 09/08/17 - Patient is a 4 pack smoker, continue IV steroids for probable COPD exacerbation GI/liver: History of hepatitis C and liver cirrhosis Moderate gastritis - PEG Tube feeds with Jevity, PO famotidine-cahnge to Protonix 40 mg PO BID. - Bowel regimen - s/p PEG tube placement ID: LLL pneumonia High fever sepsis - Zosyn and vancomycin for HCAP, aspiration in healthcare setting - f/u blood urine and sputum culture - Infectious disease consulted for persistent fever-fever trending down today - Discontinue vancomycin if okay with Dr. Jane Endocrine: - Sliding scale insulin for glycemic control if needed Heme: Thrombocytopenia - Follow CBC and coags. Transfuse blood products and vitamin K as needed - Transfuse 1 unit PRBC for hemoglobin of 7.5 Prophylaxis: - Pepcid/SCDs. No subcutaneous heparin due to subdural hemorrhage, thrombocytopenia and anemia Patient is s/p trach 09/09. Fever is trending down, hemoglobin 7.5 most likely due to moderate gastritis and liver disease. Receiving 1 U PRBC. Stable to transfer to [facility] 3 follow up note Daria Cameron MD Sep 12, 2017 14:18
[2017-09-12] MEDS ORDERED: cefTRIAXone INJ 2,000 MG in SODIUM CHLORIDE 0.9% INJ 100 ML IV SCH (16:00)
[2017-09-12] MEDS ORDERED: SOLU125I IV PUSH (17:14)
[2017-09-12] MEDS ORDERED: MODA200T12 PO (17:14)
[2017-09-12] MEDS ORDERED: PHEN100O PO (17:14)
[2017-09-12] MEDS ORDERED: Albuterol-Ipratropium Neb INH ×2 (17:14)
[2017-09-12] MEDS ORDERED: PANT40TA3 PO (17:14)
--- NOTE | 2017-09-12 17:18 | HHI.DS ---
Discharge Summary Admission Date Aug 30, 2017 at 15:22 Admitting Diagnosis (1) Acute on chronic subdural hemorrhage with midline shift Diagnosis: Principal (2) Probabe seizure Diagnosis: Principal (3) Acute encephalopathy ICD Code: G93.40 - Encephalopathy, unspecified Diagnosis: Principal (4) Traumatic brain injury ICD Code: S06.9X9A - Unspecified intracranial injury with loss of consciousness of unspecified duration, initial encounter Diagnosis: Secondary (5) Subarachnoid hemorrhage ICD Code: I60.9 - Nontraumatic subarachnoid hemorrhage, unspecified Diagnosis: Secondary Status: Acute (6) Alcohol abuse with alcohol-induced mood disorder ICD Code: F10.14 - Alcohol abuse with alcohol-induced mood disorder Diagnosis: Secondary Status: Acute (7) COPD (chronic obstructive pulmonary disease) ICD Code: J44.9 - Chronic obstructive pulmonary disease, unspecified Diagnosis: Secondary Status: Acute (8) COPD exacerbation ICD Code: J44.1 - Chronic obstructive pulmonary disease with (acute) exacerbation Status: Acute (9) Thrombocytopenia ICD Code: D69.6 - Thrombocytopenia, unspecified (10) Acute respiratory failure with hypoxia and hypercarbia ICD Code: J96.01 - Acute respiratory failure with hypoxia; J96.02 - Acute respiratory failure with hypercapnia (11) Pneumonia ICD Code: J18.9 - Pneumonia, unspecified organism (12) Hepatic cirrhosis ICD Code: K74.60 - Unspecified cirrhosis of liver Brief History Patient is a 66-year-old white male who was admitted to the psychiatric service under Blake act on 08/27/17. He has history of Wernicke-Korsakoff syndrome, TBI with subdural hematoma, previous TBI with subarachnoid hemorrhage, suicidal ideation, alcohol abuse, COPD and alcohol-induced cirrhosis. Patient was hospitalized here 08/07/17 through 08/23/17 after passing out at a bar and sustaining a traumatic brain injury. At that time he did have bilateral subdural hemorrhages and small bitemporal hemorrhages. Patient was managed conservatively (N/S Dr. Duque) and eventually was discharged to [facility]. Prior to this he was admitted in March 2017 for TBI and subarachnoid hemorrhage. Psych admitting diagnosis was dementia with behavioral disturbances and aggressive behavior towards staff at custodial. Today a Halicat was called after patient was found on the floor. Apparently patient was in his normal state today a.m.. Nursing staff responded to hearing a thud in his room, patient was found to be lying on the floor with foaming him from his mouth and incontinence to urine. Apparently nursing staff also noted some seizure-like activity. Patient was unresponsive and nonverbal, but eyes open. A stat CT of the head was done which showed increase in size of the acute on chronic subdural hemorrhage now 1.7 cm with mild midline shift. Patient was emergently transferred to the ICU and critical care medicine was consulted. I immediately evaluated the patient. His level of consciousness is improving but he is very agitated. I discussed with Dr. Gonzalez who also evaluated the patient. Because of increase in size of the bleed patient will need evacuation of the subdural hemorrhage. Transfuse 1 unit platelets to correct thrombocytopenia. Due to severe agitation and new increase in bleed patient will be intubated and placed on mechanical ventilation. Dr. Gonzalez has updated the power of district attorney was agreeable to intubation and surgical evacuation of the subdural hemorrhage CBC/BMP: 09/12/17 0520 09/12/17 0520 Significant Findings Laboratory Tests Test 09/10/17 05:05 09/10/17 14:22 09/11/17 03:37 09/11/17 15:10 Red Blood Count 2.57 MIL/MM3 (4.50-5.90) 2.56 MIL/MM3 (4.50-5.90) Hemoglobin 8.2 GM/DL (13.0-17.0) 7.8 GM/DL (13.0-17.0) Hematocrit 24.6 % (39.0-51.0) 24.2 % (39.0-51.0) Platelet Count 98 TH/MM3 (150-450) 104 TH/MM3 (150-450) Neutrophils (%) (Auto) 94.7 % (16.0-70.0) 87.7 % (16.0-70.0) Lymphocytes (%) (Auto) 2.0 % (9.0-44.0) 3.7 % (9.0-44.0) Lymphocytes # (Auto) 0.2 TH/MM3 (1.0-4.8) 0.3 TH/MM3 (1.0-4.8) Band Neutrophils % 27 % (0-6) 22 % (0-6) Lymphocytes % 1 % (9-44) 4 % (9-44) Metamyelocytes 31 % (0-1) 15 % (0-1) Toxic Vacuolation PRESENT (NONE SEEN) PRESENT (NONE SEEN) Dohle Bodies PRESENT (NONE SEEN) PRESENT (NONE SEEN) Platelet Estimate LOW (NORMAL) LOW (NORMAL) Blood Urea Nitrogen 22 MG/DL (7-18) 19 MG/DL (7-18) Random Glucose 158 MG/DL (74-106) 142 MG/DL (74-106) 114 MG/DL (74-106) Albumin 2.3 GM/DL (3.4-5.0) 2.3 GM/DL (3.4-5.0) 2.2 GM/DL (3.4-5.0) Total Bilirubin 1.2 MG/DL (0.2-1.0) 1.1 MG/DL (0.2-1.0) 1.1 MG/DL (0.2-1.0) Sodium Level 152 MEQ/L (136-145) 151 MEQ/L (136-145) 149 MEQ/L (136-145) Potassium Level 3.3 MEQ/L (3.5-5.1) Chloride Level 118 MEQ/L (98-107) 118 MEQ/L (98-107) 116 MEQ/L (98-107) Eosinophils (%) (Auto) 4.4 % (0.0-4.0) Myelocytes 2 % (0-0) Phenytoin (Dilantin) Level 5.5 MCG/ML (10.0-20.0) Test 09/12/17 05:20 White Blood Count 2.9 TH/MM3 (4.0-11.0) Red Blood Count 2.41 MIL/MM3 (4.50-5.90) Hemoglobin 7.5 GM/DL (13.0-17.0) Hematocrit 23.0 % (39.0-51.0) Platelet Count 102 TH/MM3 (150-450) Blood Urea Nitrogen 26 MG/DL (7-18) Random Glucose 272 MG/DL (74-106) Calcium Level 8.2 MG/DL (8.5-10.1) Chloride Level 111 MEQ/L (98-107) Imaging See HPI Transfer Summary See transfer summary Hospital Course Patient is a 66-year-old white male who was admitted to the psychiatric service under Blake act on 08/27/17. He has history of Wernicke-Korsakoff syndrome, TBI with subdural hematoma, previous TBI with subarachnoid hemorrhage, suicidal ideation, alcohol abuse, COPD and alcohol-induced cirrhosis. Patient was hospitalized here 08/07/17 through 08/23/17 after passing out at a bar and sustaining a traumatic brain injury. At that time he did have bilateral subdural hemorrhages and small bitemporal hemorrhages. Patient was managed conservatively (N/S Dr. Duque) and eventually was discharged to [facility]. Prior to this he was admitted in March 2017 for TBI and subarachnoid hemorrhage. Psych admitting diagnosis was dementia with behavioral disturbances and aggressive behavior towards staff at custodial. Today 08/30/17 a Halicat was called after patient was found on the floor. Apparently patient was in his normal state today a.m.. Nursing staff responded to hearing a thud in his room, patient was found to be lying on the floor with foaming him from his mouth and incontinence to urine. Apparently nursing staff also noted some seizure-like activity. Patient was unresponsive and nonverbal, but eyes open. A stat CT of the head was done which showed increase in size of the acute on chronic subdural hemorrhage now 1.7 cm with mild midline shift. Patient was emergently transferred to the ICU and critical care medicine was consulted. I immediately evaluated the patient. His level of consciousness is improving but he is very agitated. I discussed with Dr. Gonzalez who also evaluated the patient. Because of increase in size of the bleed patient will need evacuation of the subdural hemorrhage. Transfuse 1 unit platelets to correct thrombocytopenia. Due to severe agitation and new increase in bleed patient will be intubated and placed on mechanical ventilation. Dr. Gonzalez has updated the power of district attorney was agreeable to intubation and surgical evacuation of the subdural hemorrhage 08/31/17: Remains intubated sedated critically ill. Withdraws 4 extremities. Platelet count above 84 received transfusion today one pack units of platelets in anticipation of or. Dr. Gonzalez planning on evacuation of subdural hemorrhage 09/01/17: s/p Right craniotomy for subdural hemorrhage evacuation. CT of the head shows right subdural drain with improvement in the right subdural hemorrhage, small amount of residual hemorrhage and pneumocephalus. There is also enlargement of left temporal hematoma now measuring up to 6 cm, 3 mm of left-to- right midline shift. New 1.4 cm area of focal hemorrhage in the anterior inferior right temporal lobe. 09/02/17: No acute events overnight. On sedation hold opens eyes to painful stimuli withdraws all 4 extremities, localizes do not follow commands. Coags normal platelet count 95. 09/03: Unable to wean from ventilator. 09/04: Too tachypneic on CPAP trials. Unable to arouse. Probably will require trach. 09/05: Tolerating SBTs, will try to extubate but anticipate airway control problems. 09/06: passed SBT. still intermittently encephalopathic, but at times more awake. did not extubate yesterday due to cuff leak concerns. will attempt today. certainly high risk for re-intubation given persistently poor mental status. 09/07: extubated yesterday. mental status still poor, although protects airway. needs aggressive PT and pulmonary toilet. 09/08: Patient is up in a stretcher chair but unresponsive desaturating, Oxygen saturation is 87% on 10 L simple mask. Patient is unable to open eyes localizes to pain with left upper extremity with no eye-opening. He is not protecting airway, he is tachycardic in 120s. We'll place back on the bed and proceed with re intubation, and possible trach in the afternoon. I briefly spoke to the DANK Dumas, who requested reintubation. We'll consult palliative care to address goals of care 09/09: Remains encephalopathy off all sedation. Opens eyes to painful stimuli withdraws to pain left more than right localizes with left upper extremity. Dr. Serrano met with DANK, she wants to continue with aggressive care and proceed with tracheostomy. Will schedule for tracheotomy today, consult GI for PEG placement 09/10: Patient spiked fever up to 104, still has thick secretions. ID consult placed. Encephalopathic with fever, more somnolent today. Status post tracheostomy yesterday-tolerated well. PEG planned for today. Sputum culture growing staph aureus and beta strep 09/11: Continues to spike fever Tmax 102.4. Copious trach secretions yellow in color. Chest x-ray shows interval improvement in left lower lobe infiltrate. Remains encephalopathic. PEG placed yesterday 09/12: No acute events overnight remains on vent support. Fever trending down hemoglobin is 7.5, transfuse 1 unit of PRBC. Hemoglobin most likely from gastritis, and have changed GI prophylaxis to Protonix 40 mg twice a day. Cleared by psych for discharge to [facility]. We'll transfer pending insurance authorization. Eyes are open and appears to be tracking Cleared by psychiatry Blake act lifted. Transferred to [facility]. Discontinue Vancomycin and Zosyn. Syndrome Rocephin 2 g IV every 24 hours for 7 days Pt Condition on Discharge: Stable Discharge Disposition: Disch to Another Hospital Discharge Instructions DIET: Follow Instructions for: On Tube Feeding Activities you can perform: See Additionl Instruction Other Activity Instructions: Per PT New Medications: Methylprednisolone Sod Succinate Inj (Solu-Medrol Inj) 125 Mg/2 Ml Inj 60 MG IV PUSH Q8HR for COPD for 10 Days, #20 INJECTION Modafinil (Modafinil) 200 Mg Tab 200 MG PO DAILY for encephalopathy for 90 Days, #90 TAB Pantoprazole (Pantoprazole) 40 Mg Tab 40 MG PO Q12HR for GASTIRITIS for 60 Days, #120 TAB Phenytoin (Phenytoin) 100 Mg/4 Ml Oral.susp 100 MG PO Q8HR for seizure for 30 Days, #90 TAB [Albuterol-Ipratropium Neb] () 1 AMPULE NEBU 1 AMPULE INH Q4HR NEB [Albuterol-Ipratropium Neb] () 1 AMPULE NEBU 1 AMPULE INH Q2HR NEB PRN for WHEEZING for 90 Days, #90 Continued Medications: Folic Acid (Folic Acid) 1 Mg Tablet 1 MG PO DAILY for vitamin, #30 TAB Thiamine HCl (Gnp Vitamin B-1) 100 Mg Tab 100 MG PO DAILY for Alcohol Detox, #30 TAB Discontinued Medications: Insulin Glargine Inj (Lantus Inj) 1,000 Unit/10 Ml Vial 1 UNITS SQ HS for Blood Sugar Management, VIAL 0 Refills Metformin ER (Glucophage XR) 500 Mg Genet 500 MG PO BID for Blood Sugar Management, #30 TAB 0 Refills With evening meal Quetiapine (Seroquel) 25 Mg Tab 25 MG PO BID for Agitation, #60 TAB Additional Information DC Rocephin in 7 days Taper off solumedrol per at [facility] Follow up with neurosurgery Dr. Gonzalez. Please call Dr. Gonzalez's office for appropriate foloow up Daria Cameron MD Sep 12, 2017 17:18
[2017-09-13] MEDS ORDERED: PHARMACY ORDERED LAB ONE (13:45)
== END 2017-09-12 19:30 | DRG 3 ==
LOC: N03B 15:22 → N03A 09-06 16:16
PROVIDERS: ADMIT Internal Medicine; ATTEND Internal Medicine
PROC: 5A1955Z Respiratory Ventilation, Greater than 96 Consecutive Hours (ICD-10-PCS; 2017-08-30)
PROC: 0BH17EZ Insertion of Endotracheal Airway into Trachea, Via Natural or Artificial Opening (ICD-10-PCS; 2017-08-30)
PROC: 30233R1 Transfusion of Nonautologous Platelets into Peripheral Vein, Percutaneous Approach (ICD-10-PCS; 2017-08-31)
PROC: 00C40ZZ Extirpation of Matter from Intracranial Subdural Space, Open Approach (ICD-10-PCS; principal; 2017-08-31 09:02)
PROC: 0B9J8ZX Drainage of Left Lower Lung Lobe, Via Natural or Artificial Opening Endoscopic, Diagnostic (ICD-10-PCS; 2017-09-08)
PROC: 0BH17EZ Insertion of Endotracheal Airway into Trachea, Via Natural or Artificial Opening (ICD-10-PCS; 2017-09-08)
PROC: 5A1945Z Respiratory Ventilation, 24-96 Consecutive Hours (ICD-10-PCS; 2017-09-08)
PROC: 0B113F4 Bypass Trachea to Cutaneous with Tracheostomy Device, Percutaneous Approach (ICD-10-PCS; 2017-09-09)
PROC: 30233K1 Transfusion of Nonautologous Frozen Plasma into Peripheral Vein, Percutaneous Approach (ICD-10-PCS; 2017-09-09)
PROC: 5A1945Z Respiratory Ventilation, 24-96 Consecutive Hours (ICD-10-PCS; 2017-09-09)
PROC: 0BJ08ZZ Inspection of Tracheobronchial Tree, Via Natural or Artificial Opening Endoscopic (ICD-10-PCS; 2017-09-09)
PROC: 02HV33Z Insertion of Infusion Device into Superior Vena Cava, Percutaneous Approach (ICD-10-PCS; 2017-09-09)
PROC: 0DH63UZ Insertion of Feeding Device into Stomach, Percutaneous Approach (ICD-10-PCS; 2017-09-10)
PROC: 30233N1 Transfusion of Nonautologous Red Blood Cells into Peripheral Vein, Percutaneous Approach (ICD-10-PCS; 2017-09-12)
DX: S06.5X9A Traumatic subdural hemorrhage with loss of consciousness of unspecified duration, initial encounter (principal); G93.41 Metabolic encephalopathy; J15.211 Pneumonia due to Methicillin susceptible Staphylococcus aureus; A41.9 Sepsis, unspecified organism; J15.4 Pneumonia due to other streptococci; T17.890A Other foreign object in other parts of respiratory tract causing asphyxiation, initial encounter; D69.59 Other secondary thrombocytopenia; J96.02 Acute respiratory failure with hypercapnia; J96.01 Acute respiratory failure with hypoxia; J44.0 Chronic obstructive pulmonary disease with (acute) lower respiratory infection; F10.27 Alcohol dependence with alcohol-induced persisting dementia; J44.1 Chronic obstructive pulmonary disease with (acute) exacerbation; J98.11 Atelectasis; F10.24 Alcohol dependence with alcohol-induced mood disorder; K70.30 Alcoholic cirrhosis of liver without ascites; F10.26 Alcohol dependence with alcohol-induced persisting amnestic disorder; I10 Essential (primary) hypertension; F17.210 Nicotine dependence, cigarettes, uncomplicated; K29.70 Gastritis, unspecified, without bleeding; R56.9 Unspecified convulsions; D64.9 Anemia, unspecified; E11.9 Type 2 diabetes mellitus without complications; Y95 Nosocomial condition; R29.6 Repeated falls; W19.XXXA Unspecified fall, initial encounter; Y92.230 Patient room in hospital as the place of occurrence of the external cause; M54.5 Low back pain; G89.29 Other chronic pain; Z87.820 Personal history of traumatic brain injury; Z99.81 Dependence on supplemental oxygen; Z91.81 History of falling; Z86.19 Personal history of other infectious and parasitic diseases; Z88.2 Allergy status to sulfonamides
CPT/HCPCS: 31500; 31624; 36430; 36556; 36600; 70450; 71010; 76937; 80048; 80053; 80185; 80202; 81002; 82805; 83735; 84100; 84132; 85007; 85025; 85027; 85384; 85610; 85730; 86078; 86403; 86850; 86880; 86900; 86901; 86920; 86922; 86927; 87015; 87040; 87070; 87086; 87102; 87116; 87147; 87186; 87205; 87206; 87641; 93005; 94002; 94003; 94640; 94664; 95819; C1713; J0131; J0696; J1100; J1120; J1165; J1200; J1580; J1953; J2150; J2250; J2270; J2370; J2543; J2930; J3010; J3370; J3411; J3480; J7030; J7040; J7050; J7120; P9016; P9017; P9035; P9037; P9047; Q2009